=== PATIENT | male | born 1955 ===

== ENCOUNTER → 2020-02-22 13:04 | Outpatient (BNVA) | payer MEDICARE, MEDICAID, SELFPAY | PROVIDERS: PCP Internal Medicine; Visit Provider Internal Medicine | DX: M86.9 Osteomyelitis, unspecified (principal); Z79.899 Other long term (current) drug therapy; Z79.82 Long term (current) use of aspirin | CPT/HCPCS: 99212 ==

== ENCOUNTER 2020-02-26 15:58 | Outpatient (REF) | payer MEDICAID, MEDICARE, SELFPAY | END 2020-02-26 15:59 | disposition home or self-care (01) | LOC: HO.WCC 15:58 | PROVIDERS: Visit Provider Physician Assistant Surgical | DX: M86.9 Osteomyelitis, unspecified (principal) | CPT/HCPCS: 87071; 87077; 87186; 87205 ==

== ENCOUNTER 2020-04-22 11:24 | Outpatient (REF) | payer MEDICARE, MEDICAID, SELFPAY ==
--- NOTE | 2020-04-22 11:55 | XR_ITS ---
EXAMINATION: XR FOOT, LEFT CLINICAL INFORMATION: Diabetic foot ulcer. COMPARISON: None. TECHNIQUE: AP, lateral, and oblique views of the left foot. FINDINGS: There is diffuse osteopenia. The ankle mortise and subtalar joints are normal. A small calcaneal heel spur is noted. The ankle mortise and subtalar joints are normal. No periosteal elevation or reaction seen. The soft tissues are normal. XR/XR foot LT min 3V IMPRESSION: Diffuse osteopenia. No visible acute fracture or dislocation seen. No suspicion for osteomyelitis. No soft tissue gas seen.
== END 2020-04-22 11:25 | disposition home or self-care (01) ==
LOC: HO.LAB 11:24
PROVIDERS: PCP Internal Medicine; Visit Provider Physician Assistant
DX: E11.621 Type 2 diabetes mellitus with foot ulcer (principal); L97.529 Non-pressure chronic ulcer of other part of left foot with unspecified severity
CPT/HCPCS: 73630

== ENCOUNTER 2020-05-14 13:29 | Outpatient (REF) | payer MEDICARE, MEDICAID, SELFPAY ==
--- NOTE | 2020-05-14 | US_ITS ---
EXAMINATION: NONINVASIVE ASSESSMENT OF THE ARTERIES OF THE LEFT LOWER EXTREMITIES WITH PVR EXAM AND BILATERAL LOWER EXTREMITY DUPLEX CLINICAL INFORMATION: Peripheral vascular disease TECHNIQUE: Ankle pulse volume recordings, ankle pressure measurements were obtained of the lower extremity arterial system on the left in addition to duplex Doppler techniques with wave form analysis and measurement of velocities in the common femoral, profunda femoral, superficial femoral, popliteal and tibial arteries. The study was performed only at rest. COMPARISON: Previous exam April 2019 FINDINGS: a) AT REST: LEFT LEG: Left direct duplex Doppler findings: There is mild atherosclerotic disease with vessel wall calcification. No visible luminal narrowing is appreciated. The left distal superficial femoral artery is difficult to visualize. * Common femoral artery: 75 cm/s, Diastolic flow reversal: Yes * Superficial femoral artery (proximal, mid, distal): 81, 83 and 62 cm/s, Diastolic flow reversal: No * Popliteal artery: 69 cm/s, Diastolic flow reversal: No * Posterior tibial artery: 124 cm/s, Diastolic flow reversal: No US/US arterial duplex LE LT IMPRESSION: Mild atherosclerotic disease with vessel wall calcification. Limited visualization of the left distal superficial femoral artery. Peak systolic velocities do not demonstrate evidence of hemodynamically significant stenosis. There is loss of triphasic flow in the left superficial femoral, popliteal and posterior tibial arteries.
== END 2020-05-14 13:30 | disposition home or self-care (01) ==
LOC: HO.US 13:29
PROVIDERS: PCP Internal Medicine; Visit Provider Physician Assistant
DX: I73.9 Peripheral vascular disease, unspecified (principal)
CPT/HCPCS: 93926

== ENCOUNTER 2020-06-04 13:07 | Outpatient (REF) | payer MEDICARE, MEDICAID, SELFPAY ==
[2020-06-04 14:07] LABS: Hematocrit 36.7 % (42-52); Hemoglobin 11.5 g/dl (14.0-18.0); Mean Corpuscular HGB Conc 31.3 g/dl (31.0-36.0); Mean Corpuscular Hemoglobin 26.9 pg (27.0-33.0); Mean Corpuscular Volume 85.7 fL (80-98); Mean Platelet Volume 10.6 fL (9.4-12.4); Platelet Count 211 X10*3/uL (160-400); Red Blood Count 4.28 X10*6/uL (4.60-5.80); Red Cell Distribution Width 13.5 % (11.0-16.0)
[2020-06-04 14:14] LABS: INTERNATIONAL NORM RATIO 1.3 (0.9-1.1); Prothrombin Time 15.8 SEC (10.8-13.0)
[2020-06-04 14:16] LABS: Partial Thromboplastin Time 42.3 SEC (24.1-38.0)
[2020-06-04 14:31] LABS: Blood Urea Nitrogen 10 mg/dL (9-16); Estimated Glomerular Filt Rate > 60
== END 2020-06-04 13:08 | disposition home or self-care (01) ==
LOC: HO.LAB 13:07
PROVIDERS: PCP Internal Medicine; Visit Provider Radiology Vascular & Interventional Radiology
DX: R79.89 Other specified abnormal findings of blood chemistry (principal); R94.4 Abnormal results of kidney function studies
CPT/HCPCS: 36415; 82565; 84520; 85027; 85610; 85730

== ENCOUNTER 2020-06-19 13:00 | Outpatient (REF) | payer MEDICARE, MEDICAID, SELFPAY ==
--- NOTE | ~2020-06-19 | XR_ITS ---
EXAMINATION: XR FOOT, LEFT CLINICAL INFORMATION: Left plantar foot wound at the midfoot. COMPARISON: 04/22/2020 TECHNIQUE: AP, lateral, and oblique views of the left foot. FINDINGS: Osteopenia. There is no acute fracture or dislocation. Joint space narrowing throughout the interphalangeal joints. Diffuse soft tissue swelling. No focal soft tissue defect identified. No radiopaque foreign body. Vascular calcifications. No osseous erosion. XR/XR foot LT min 3V IMPRESSION: Osteopenia. Soft tissue swelling. No soft tissue defect identified. No erosive changes.
== END 2020-06-19 13:01 | disposition home or self-care (01) ==
LOC: HO.XRAY 13:00
PROVIDERS: PCP Internal Medicine; Visit Provider Surgery
DX: S91.302A Unspecified open wound, left foot, initial encounter (principal); X58.XXXA Exposure to other specified factors, initial encounter; Y93.9 Activity, unspecified; Y92.9 Unspecified place or not applicable; Y99.9 Unspecified external cause status; Z12.11 Encounter for screening for malignant neoplasm of colon
CPT/HCPCS: 73630; Q3014

== ENCOUNTER → 2020-07-31 13:43 | Outpatient (BNVA) | payer MEDICARE, MEDICAID, SELFPAY | PROVIDERS: PCP Internal Medicine; Visit Provider Nurse Practitioner | DX: R19.5 Other fecal abnormalities (principal); G82.20 Paraplegia, unspecified; I10 Essential (primary) hypertension; S39.92XD Unspecified injury of lower back, subsequent encounter; Z86.711 Personal history of pulmonary embolism; E13.9 Other specified diabetes mellitus without complications; Z79.899 Other long term (current) drug therapy | CPT/HCPCS: Q3014 ==

== ENCOUNTER 2020-09-02 15:47 | Outpatient (REF) | payer MEDICARE, MEDICAID, SELFPAY ==
[2020-09-02 17:00] LABS: Blood Urea Nitrogen 16 mg/dL (9-16); Estimated Glomerular Filt Rate > 60
== END 2020-09-02 15:48 | disposition home or self-care (01) ==
LOC: HO.LAB 15:47
PROVIDERS: PCP Internal Medicine; Visit Provider Physician Assistant
DX: T14.8XXD Other injury of unspecified body region, subsequent encounter (principal)
CPT/HCPCS: 36415; 82565; 84520

== ENCOUNTER → 2020-09-03 13:33 | Outpatient (BNVA) | payer MEDICARE, MEDICAID, SELFPAY | PROVIDERS: Visit Provider Internal Medicine | DX: L08.9 Local infection of the skin and subcutaneous tissue, unspecified (principal) | CPT/HCPCS: 99212 ==

== ENCOUNTER 2020-09-08 15:05 | Outpatient (REF) | payer MEDICARE, MEDICAID, SELFPAY ==
--- NOTE | ~2020-09-08 | MR_ITS ---
EXAMINATION: MRI FOOT WITHOUT AND WITH CONTRAST, RIGHT CLINICAL INFORMATION: Purulent drainage, redness. Evaluate for osteomyelitis. COMPARISON: Radiographs 04/27/2017 TECHNIQUE: MRI without and with intravenous administration of 10 mL of Gadavist is performed on the right foot FINDINGS: There is a soft tissue ulceration plantar to the 4th metatarsal head which is diffusely edematous, enhancing, with loss of T1 fatty marrow signal consistent with osteomyelitis. There is a chronic appearing dorsal dislocation of the 4th MTP joint with the proximal phalanx dorsiflexed 90 degrees. There has been resection of the distal 5th metatarsal. Bone marrow signal is otherwise normal. Fatty replacement of the intrinsic muscles of the foot, which is not uncommon in diabetic patients. MR/MR foot RT wo/w con IMPRESSION: Soft tissue ulceration plantar to the 4th metatarsal head with underlying osteomyelitis. No abscess.
== END 2020-09-08 15:06 | disposition home or self-care (01) ==
LOC: HO.MRI 15:05
PROVIDERS: Visit Provider Physician Assistant
DX: M79.671 Pain in right foot (principal)
CPT/HCPCS: 73720; A9585

== ENCOUNTER 2020-09-09 08:45 | Day surgery (SDC) | payer MEDICARE, MEDICAID, SELFPAY ==
[2020-09-04 13:57] VITALS: BMI 29.2
[2020-09-09 09:40] VITALS: BP 117/66; PULSE 79; RESP 18; TEMP 36.6; O2SAT 99
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
[2020-09-09 09:58] LABS: Glucose, Whole Blood 77 mg/dL (60-115)
--- NOTE | 2020-09-09 10:00 | HO.ANESPROP2 ---
[facility] Active Problems Active Problems: All Active Problems (Updated 09/07/20 @ 17:52 by Sandra Gomez MD) Right foot infection (Acute) Colon cancer screening (Acute) Positive colorectal cancer screening using Cologuard test (Acute) Paraplegia (Acute) Hypertension (Acute) Traumatic injury of back (Acute) NIDDY (non-insulin dependent diabetes mellitus in young) (Acute) History of pulmonary embolism (Acute) Osteomyelitis of left foot (Acute) Past Medical History Medical History Diabetes HTN (hypertension) Hx pulmonary embolism Osteomyelitis of left foot Paraplegia Right foot infection Family History Family History Father No problems noted. Mother No problems noted. Brother No problems noted. Sister No problems noted. Sister No problems noted. Sister No problems noted. Son No problems noted. Son No problems noted. Son No problems noted. Son No problems noted. Daughter No problems noted. Daughter No problems noted. Surgical History Surgical History History of colonoscopy History of spinal surgery Hx of foot surgery Social History Social History Household Members: Other Alcohol intake: current Alcohol intake frequency: does not drink Smoking Status: Never smoker Advance Directives Information Provided: No Current occupational status: disabled Meds Allergies Allergy/AdvReac Type Severity Reaction Status Date / Time levofloxacin [From LEVAQUIN] Allergy Intermediate HIVES, Verified 09/04/20 13:49 SKIN RASH seafood Allergy Intermediate Itching Verified 09/04/20 13:49 throat shellfish derived Allergy Intermediate itching Verified 09/04/20 13:49 throat Home Medications Medication Instructions Recorded Confirmed Last Taken Type baclofen 400 mcg INTRATHECAL DAILY 02/22/20 09/04/20 Unknown History cholecalciferol (vitamin D3) 10 10 mcg PO DAILY 02/22/20 09/04/20 Unknown History mcg (400 unit) tablet gabapentin 800 mg tablet 800 mg PO BID 02/22/20 02/22/20 Unknown History gabapentin 800 mg tablet 800 mg PO BID 02/22/20 09/04/20 Unknown History hydrocortisone 2.5 % topical cream 1 applic [place] BID-QID PRN 02/22/20 02/22/20 Unknown History with perineal applicator lisinopril 5 mg tablet 5 mg PO DAILY 02/22/20 09/04/20 Unknown History metformin 1,000 mg tablet 1,000 mg PO BID 02/22/20 09/04/20 Unknown History omadacycline 150 mg tablet See Rx Instructions PO .COMPLEX 02/22/20 02/22/20 Unknown History apixaban 5 mg tablet 5 mg PO BID 07/31/20 09/04/20 Unknown History latanoprost 0.005 % eye drops 1 drp OPHTHALMIC (EYE) QPM 07/31/20 09/04/20 Unknown History aspirin 1 tab PO DAILY 09/04/20 09/04/20 Unknown History insulin glargine [Lantus Solostar 10 unit SUBCUT DAILY 09/04/20 09/04/20 Unknown History U-100 Insulin] Exam Exam Date and Time: September 09, 2020 1000 Height,Weight and Vital Signs: Height 6 ft 1 in Weight 100.698 kg Last Vital Signs Temp 97.9 F 09/09/20 09:40 Pulse 79 09/09/20 09:40 Resp 18 09/09/20 09:40 BP 117/66 09/09/20 09:40 Pulse Ox 99 09/09/20 09:40 Pertinent Lab Results Pertinent Lab Results: Laboratory Tests 09/09/20 09:53 POC Glucose 77 Airway Mallampati Class: III TM Dist: >3cm Neck ROM: Full Denture: Upper Partial: Upper Heart: RRR Lungs: CTA
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
--- NOTE | 2020-09-09 10:24 | PC.NURSE ---
PT HAS STAGE 3 OPEN AREA ON LEFT SIDE OF BUTTOCKS AT THE FOLD OF GLUTES AND THE UPPER THIGH. PICTURES WERE TAKEN AND ARE ON THE CHART. AREA CLEANSED WITH NORMAL SALINE AND A WET SALINE DRESSING PLACED OVER THE AREA TO PROTECT IT FOR THE PROCEDURE
--- NOTE | 2020-09-09 10:52 | P.CONAN_ITS ---
[facility] Active Problems Active Problems: All Active Problems (Updated 09/07/20 @ 17:52 by Sandra garcia MD) Right foot infection (Acute) Colon cancer screening (Acute) Positive colorectal cancer screening using Cologuard test (Acute) Paraplegia (Acute) Hypertension (Acute) Traumatic injury of back (Acute) NIDDY (non-insulin dependent diabetes mellitus in young) (Acute) History of pulmonary embolism (Acute) Osteomyelitis of left foot (Acute) Past Medical History Medical History Diabetes HTN (hypertension) Hx pulmonary embolism Osteomyelitis of left foot Paraplegia Right foot infection Family History Family History Father No problems noted. Mother No problems noted. Brother No problems noted. Sister No problems noted. Sister No problems noted. Sister No problems noted. Son No problems noted. Son No problems noted. Son No problems noted. Son No problems noted. Daughter No problems noted. Daughter No problems noted. Surgical History Surgical History History of colonoscopy History of spinal surgery Hx of foot surgery Social History Social History Household Members: Other Alcohol intake: current Alcohol intake frequency: does not drink Smoking Status: Never smoker Advance Directives Information Provided: No Current occupational status: disabled Meds Allergies Allergy/AdvReac Type Severity Reaction Status Date / Time levofloxacin [From LEVAQUIN] Allergy Intermediate HIVES, Verified 09/04/20 13:49 SKIN RASH seafood Allergy Intermediate Itching Verified 09/04/20 13:49 throat shellfish derived Allergy Intermediate itching Verified 09/04/20 13:49 throat Home Medications Medication Instructions Recorded Confirmed Last Taken Type baclofen 400 mcg INTRATHECAL DAILY 02/22/20 09/04/20 Unknown History cholecalciferol (vitamin D3) 10 10 mcg PO DAILY 02/22/20 09/04/20 Unknown History mcg (400 unit) tablet gabapentin 800 mg tablet 800 mg PO BID 02/22/20 02/22/20 Unknown History gabapentin 800 mg tablet 800 mg PO BID 02/22/20 09/04/20 Unknown History hydrocortisone 2.5 % topical cream 1 applic MD BID-QID PRN 02/22/20 02/22/20 Unknown History with perineal applicator lisinopril 5 mg tablet 5 mg PO DAILY 02/22/20 09/04/20 Unknown History metformin 1,000 mg tablet 1,000 mg PO BID 02/22/20 09/04/20 Unknown History omadacycline 150 mg tablet See Rx Instructions PO .COMPLEX 02/22/20 02/22/20 Unknown History apixaban 5 mg tablet 5 mg PO BID 07/31/20 09/04/20 Unknown History latanoprost 0.005 % eye drops 1 drp OPHTHALMIC (EYE) QPM 07/31/20 09/04/20 Unknown History aspirin 1 tab PO DAILY 09/04/20 09/04/20 Unknown History insulin glargine [Lantus Solostar 10 unit SUBCUT DAILY 09/04/20 09/04/20 Unknown History U-100 Insulin] Exam Exam Date and Time: September 09, 2020 1052 Height,Weight and Vital Signs: Height 6 ft 1 in Weight 100.698 kg Last Vital Signs Temp 97.9 F 09/09/20 09:40 Pulse 79 09/09/20 09:40 Resp 18 09/09/20 09:40 BP 117/66 09/09/20 09:40 Pulse Ox 99 09/09/20 09:40 Pertinent Lab Results Pertinent Lab Results: Laboratory Tests 09/09/20 09:53 POC Glucose 77 Airway Mallampati Class: II TM Dist: >3cm Neck ROM: Full Denture: Upper and Lower Heart: RRR Lungs: CTA
--- NOTE | 2020-09-09 11:42 | PM.OP ---
Brief Operative Note Date of Service: 09/09/20 Pre-op diagnosis: Positive cologard/paraplegia Post-op diagnosis: other (rectal polyp, decub @ base of buttock crease with thigh) Procedure: Colonoscopy with excisional polypectomy Lavage and suction >1600cc sterile water. Implants: NONE Surgeon: Jessica Jiménez MD Anesthesia: MAC (MD Meghann) Estimated blood loss (mL): 5 Pathology: other (rectal polyp) Condition: stable Disposition: PACU
[2020-09-09 11:43] VITALS: BP 126/73; PULSE 70; RESP 16; TEMP 36.3; O2SAT 99
[2020-09-09 11:58] VITALS: BP 121/74; PULSE 70; RESP 16; O2SAT 98
[2020-09-09 12:13] VITALS: BP 112/69; PULSE 69; RESP 16; TEMP 36.3; O2SAT 98
--- NOTE | 2020-09-09 14:25 | P.OP_ITS ---
Operative Note Operative Note Date of Service: 09/09/20 Narrative: Pre-op diagnosis: Positive cologard/paraplegia Post-op diagnosis: rectal polyp, decub @ base of buttock crease with thigh-right Procedure: Colonoscopy with excisional polypectomy Lavage and suction >1600cc sterile water. Implants: NONE Surgeon: Jessica Jiménez MD Anesthesia: MAC (MD Meghann) FINDINGS- ASIA: PROSTATE NORMAL, TONE SLIGHT DECREASED Adult slim scope introduced without difficulty, advanced through sigmoid, desc ending colon--decreased tone, bowel floppy, @ region splenic flexure retroflex view prox folds clear. Slow progress through the bowel due to very marginal prep.Flushed and suctioned over 1600cc. With extrinsic abdominal pressure able to get into the ascending colon. At one point got good retroflex view which was negative. ultimately go to the cecum--AO and ileocecal valve were clear. Slow withdrawal of scope. Good views. Only found small rectal polyp--looked more hyperplastic but removed. ARV was clear. Estimated blood loss (mL): 5 Pathology: Rectal polyp Condition: stable Disposition: PACU PLAN: Given + cologard may have been false positive Would do FIT testing q 6 months Repeat colon in no longer than years due to poor prep. Follow H&H.
== END 2020-09-09 13:30 | disposition home or self-care (01) ==
PROVIDERS: PCP Internal Medicine; Visit Provider Internal Medicine Gastroenterology
PROC: 0DJD8ZZ Inspection of Lower Intestinal Tract, Via Natural or Artificial Opening Endoscopic (ICD-10-PCS; CPT 45378; principal; 2020-09-09 10:30)
DX: Z12.11 Encounter for screening for malignant neoplasm of colon (principal); K62.1 Rectal polyp; I10 Essential (primary) hypertension; E11.9 Type 2 diabetes mellitus without complications; G82.20 Paraplegia, unspecified; Z86.711 Personal history of pulmonary embolism; Z79.4 Long term (current) use of insulin; Z79.899 Other long term (current) drug therapy; Z88.1 Allergy status to other antibiotic agents
CPT/HCPCS: 45380; 82947; 88305

== ENCOUNTER → 2020-09-15 12:59 | Outpatient (BNVA) | payer MEDICARE, MEDICAID, SELFPAY | PROVIDERS: PCP Internal Medicine; Visit Provider Internal Medicine | DX: M86.9 Osteomyelitis, unspecified (principal) | CPT/HCPCS: 99212 ==

== ENCOUNTER → 2020-09-25 09:43 | Outpatient (BNVA) | payer MEDICARE, MEDICAID, SELFPAY | PROVIDERS: PCP Internal Medicine; Visit Provider Nurse Practitioner | DX: Z13.89 Encounter for screening for other disorder (principal) | CPT/HCPCS: Q3014 ==

== ENCOUNTER 2020-12-02 14:43 | Outpatient (REF) | payer MEDICARE, MEDICAID, SELFPAY ==
--- NOTE | ~2020-12-02 | XR_ITS ---
EXAMINATION: XR LUMBOSACRAL SPINE CLINICAL INFORMATION: Low back pain COMPARISON: None TECHNIQUE: 3 views of the lumbar spine FINDINGS: There is curvature of the mid lumbar spine to the left. There may be mild 2 mm posterior subluxation of L5 with respect to S1. Alignment is otherwise normal. There is severe spondylosis with large bridging vertebral body bony osteophyte and ankylosis. There are old-appearing L1 and L2 vertebral body compression fractures. No acute fracture is seen. There is multilevel degenerative disc disease, greatest at L4-L5 and L5-S1. There is lower lumbar spine facet arthritis. There are surgical clips adjacent over into the left of the spine. XR/XR lumbar spine 4V min IMPRESSION: Old L1 and L2 vertebral body compression fractures. 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
== END 2020-12-02 14:44 | disposition home or self-care (01) ==
LOC: HO.XRAY 14:43
PROVIDERS: PCP Internal Medicine; Visit Provider Internal Medicine
DX: M54.5 Low back pain (principal)
CPT/HCPCS: 72110

== ENCOUNTER 2021-01-26 12:47 | Outpatient (REF) | payer MEDICARE, MEDICAID, SELFPAY ==
--- NOTE | ~2021-01-26 | MR_ITS ---
EXAMINATION: MR PELVIS WITHOUT AND WITH CONTRAST CLINICAL INFORMATION: Nonhealing wound left ischial tuberosity. Patient reports nonhealing wound for 6 months, paraplegic, check for infection in bone. COMPARISON: XR pelvis 12/15/2020. TECHNIQUE: MRI scanning of the pelvis is performed using a standard protocol on the high-field strength 1.5 Dipti magnet. Precontrast images are obtained in multiple planes. Postcontrast images are obtained in the axial plane with use of 10 mL of Gadavist. FINDINGS: There is a skin/soft tissue defect in the lower left buttocks, inferior to the left ischial tuberosity. There is streaky underlying subcutaneous edema and some minimal enhancement. There are no loculated fluid collections. There is chronic-appearing hypertrophic change of the left ischial tuberosity but there are no destructive changes or bone marrow edema to suggest osteomyelitis. Incidental note is made of fatty atrophy of most of the visualized muscles, most prominent in the gluteus norman muscles bilaterally and the left rectus abdominis and left hip adductor muscles. There is a moderate-sized fat-containing right inguinal hernia. There are no intrapelvic lesions. There are prominent left groin lymph nodes. MR/MR pelvis wo/w con IMPRESSION: 1. Soft tissue wound inferior to the left ischial tuberosity with underlying subcutaneous edema and minor enhancement. No evidence of abscess. 2. No evidence of osteomyelitis, with particular attention to the left ischial tuberosity. 3. Fatty atrophy involving multiple muscles. 4. Fat-containing right inguinal hernia. 5. Prominent left groin lymph nodes which are nonspecific.
== END 2021-01-26 12:48 | disposition home or self-care (01) ==
LOC: HO.MRI 12:47
PROVIDERS: PCP Internal Medicine; Visit Provider Physician Assistant
DX: L89.323 Pressure ulcer of left buttock, stage 3 (principal)
CPT/HCPCS: 72197; A9585

== ENCOUNTER → 2021-02-06 10:49 | Outpatient (BNVA) | payer MEDICARE, MEDICAID, SELFPAY | PROVIDERS: Visit Provider Internal Medicine | DX: L89.319 Pressure ulcer of right buttock, unspecified stage (principal) | CPT/HCPCS: 99212 ==

== ENCOUNTER 2021-02-26 11:33 | Outpatient (REF) | payer MEDICARE, MEDICAID, SELFPAY ==
[2021-02-26 11:37] LABS: MANUAL DIFF FLAG NO
[2021-02-26 11:43] LABS: Appearance Urine HAZY; Color Urine YELLOW; Glucose Urine UA NEG (NEG); Leukocyte Esterase Urine 2+ (NEG); Nitrite Urine POS (NEG); PH 8.5 (5.0-8.0); Urine Blood 2+ (NEG); Urine Ketones NEG (NEG); Urine Protein NEG (NEG-TRACE)
[2021-02-26 11:44] LABS: Basophils Percent Auto 0.4 % (0-2); Eosinophils Absolute Auto 0.1 X10*3/uL (0.0-0.4); Eosinophils Percent Auto 1.1 % (0-4); Hematocrit 24.6 % (42-52); Hemoglobin 7.8 g/dl (14.0-18.0); Imm Gran Abs Auto 0.04 X10*3/uL (0.00-0.03); Imm Gran Pct Auto 0.8 % (0.0-0.4); Lymphocytes Absolute Auto 1.4 X10*3/uL (1.2-4.9); Lymphocytes Percent Auto 27.4 % (20-40); Mean Corpuscular HGB Conc 31.7 g/dl (31.0-36.0); Mean Corpuscular Hemoglobin 24.9 pg (27.0-33.0); Mean Corpuscular Volume 78.6 fL (80-98); Mean Platelet Volume 9.6 fL (9.4-12.4); Monocytes Absolute Auto 0.5 X10*3/uL (0.1-1.2); Monocytes Percent Auto 9.1 % (2-11); Neutrophils Absolute Auto 3.2 X10*3/uL (2.0-8.3); Neutrophils Percent Auto 61.2 % (45-73); Platelet Count 273 X10*3/uL (160-400); Red Blood Count 3.13 X10*6/uL (4.60-5.80); Red Cell Distribution Width 15.1 % (11.0-16.0); White Blood Count 5.3 X10*3/uL (4.8-10.8)
[2021-02-26 12:26] LABS: Erythrocyte Sedimentation Rate 116 MM/HR (0-15)
[2021-02-26 13:00] LABS: Amorphous Sediment Urine 1+ /LPF; Bacteria Urine 2+ /LPF; Squamous Epithelial Cell Urine TRACE /LPF; Triple Phosphate Crystal Urine 1+ /LPF; WBC Urine 0-2 /HPF (0-4)
== END 2021-02-26 11:34 | disposition home or self-care (01) ==
LOC: HO.HVNA 11:33
PROVIDERS: Visit Provider Internal Medicine
DX: R50.9 Fever, unspecified (principal)
CPT/HCPCS: 36415; 81001; 85025; 85652; 87086

== ENCOUNTER 2021-03-02 15:25 | Inpatient (IN) | payer MEDICARE, MEDICAID, SELFPAY ==
--- NOTE | ~2021-03-02 | CT_ITS ---
EXAMINATION: CT ABDOMEN AND PELVIS WITH CONTRAST CLINICAL INFORMATION: Stage IV . Past history of osteomyelitis of foot. COMPARISON: None TECHNIQUE: Multidetector volumetric images were obtained from the superior aspect of the liver through the pubic symphysis following administration 85 mL of Omnipaque 350 intravenous contrast. Sagittal and coronal reformatted images were obtained on the technologist's workstation. Oral Contrast: No. This CT examination was performed using dose optimization techniques as appropriate, variously including the following: *Automated exposure control. *Adjustment of mA and/or kV according to patient size (this includes techniques or standardized protocols for targeted exams where dose is matched to indication/reason for exam; i.e. extremities or head). *Use of iterative reconstruction technique. DLP: 888 mGy-cm FINDINGS: LUNG BASES: The lung bases are clear. There are postsurgical changes at the left posterior 10th rib. LIVER, GALLBLADDER, AND BILIARY TREE: The liver is normal in size, shape, and attenuation. No focal hepatic lesion or biliary ductal dilatation is present. The gallbladder is unremarkable with no evidence of radiopaque gallstones, gallbladder wall thickening, or obvious pericholecystic inflammatory changes. PANCREAS: Unremarkable. SPLEEN: Unremarkable. ADRENAL GLANDS: Unremarkable. KIDNEYS AND URETERS: The kidneys are normal in size, shape, and attenuation. No hydronephrosis, hydroureter, or calculi seen. No perinephric stranding. There is a small 7 mm cyst in the lower pole of right kidney. BLADDER: There is a Juarez catheter in the non-distended bladder. There is gas within the bladder likely from Juarez's insertion. GASTROINTESTINAL TRACT: There is a large amount of stool seen throughout the colon without distention. The small bowel loops are normal caliber. ABDOMINAL WALL: There is a right inguinal hernia containing fat. LYMPH NODES: There are small shotty lymph nodes in the retroperitoneum. VASCULAR: Unremarkable. PELVIC VISCERA: There is no free fluid or free air. OSSEOUS STRUCTURES: There is diffuse osteopenia with calcification of the anterior longitudinal ligament and fusion of the facet joints likely findings suggestive of DISH. CT/CT abdomen pelvis w con IMPRESSION: 1. [id number]-[id number] constipation. Small 7 mm cyst in the lower pole of right kidney. 2. Calcification of anterior longitudinal ligament and fusion of bilateral facet joints suggestive of DISH. 3. Right inguinal hernia containing fat.
--- NOTE | ~2021-03-02 | MR_ITS ---
EXAMINATION: MR PELVIS WITHOUT AND WITH CONTRAST CLINICAL INFORMATION: Chronic ulcer. Evaluate for osteomyelitis. COMPARISON: Pelvic MRI dated 01/26/2021. CT abdomen/pelvis dated 03/02/2021. TECHNIQUE: Multisequence MR imaging of the pelvis was obtained before and after the IV administration of 10 mL Gadavist contrast on a high-field strength scanner. FINDINGS: Redemonstration of a soft tissue wound inferior to the left ischial tuberosity with associated stranding and edema demonstrating postcontrast enhancement and extending to the region of the proximal hamstring tendon and ischial tuberosity. Findings are consistent with cellulitis. There is redemonstration of slightly heterogeneous marrow signal in the ischial tuberosity without new or increasing marrow edema or associated postcontrast enhancement to suggest acute osteomyelitis. Prominent ischial tuberosity enthesopathic spurring is redemonstrated. There is new increased fluid signal along the posterior aspect of the proximal hamstring tendon measuring up to 3.0 x 1.6 cm, consistent with new proximal hamstring tendon tearing. No definite abscess formation. No stress reaction or fracture. No new lytic or blastic osseous lesion. Juarez catheter within the urinary bladder. No new pelvic mass or fluid collection. MR/MR pelvis wo/w con IMPRESSION: 1. Redemonstration of soft tissue ulceration and cellulitis inferior to the left ischial tuberosity. This extends to the proximal left hamstring insertion where there is new/increased posterior partial tearing. There is a small amount of fluid adjacent to the proximal hamstring tendon, likely related to the tear. No definite abscess formation. 2. No new adjacent marrow edema or enhancement to suggest acute osteomyelitis.
[2021-03-02 15:51] VITALS: BP 105/60; BP 138/72; PULSE 84; PULSE 92; RESP 18; TEMP 36.9; O2SAT 98; O2SAT 99; BMI 29.5
--- NOTE | 2021-03-02 16:11 | ED.MALEGU ---
HPI - Male Genitourinary General Chief complaint: Wound/Laceration Stated complaint: TESTICLE PAIN PER EMS Source: patient Mode of arrival: ambulatory Limitations: no limitations History of Present Illness HPI Narrative: 66-year-old male, paraplegic, chronic Juarez catheterization, chronic decubitus ulcer being followed by wound care presents with worsening sacral ischial stage IV decubitus wound. He was referred to emergency department by wound care nurse. Onset (ago): unknown Duration: constant Location: left inguinal region Context: indwelling catheter Related Data Sexually active: No Home Medications Medication Instructions Recorded Confirmed baclofen 400 mcg INTRATHECAL DAILY 02/22/20 09/04/20 cholecalciferol (vitamin D3) 10 10 mcg PO DAILY 02/22/20 09/04/20 mcg (400 unit) tablet gabapentin 800 mg tablet 800 mg PO BID 02/22/20 02/22/20 gabapentin 800 mg tablet 800 mg PO BID 02/22/20 09/04/20 (Neurontin) hydrocortisone 2.5 % topical cream 1 applic [place] BID-QID PRN 02/22/20 02/22/20 with perineal applicator (Anusol-HC) lisinopril 5 mg tablet 5 mg PO DAILY 02/22/20 09/04/20 metformin 1,000 mg tablet 1,000 mg PO BID 02/22/20 09/04/20 omadacycline 150 mg tablet (Nuzyra) See Rx Instructions PO .COMPLEX 02/22/20 02/22/20 apixaban 5 mg tablet 5 mg PO BID 07/31/20 09/04/20 latanoprost 0.005 % eye drops 1 drp OPHTHALMIC (EYE) QPM 07/31/20 09/04/20 aspirin 81 mg tablet,delayed 1 tab PO DAILY 09/04/20 09/04/20 release insulin glargine 100 unit/mL (3 10 unit SUBCUT DAILY 09/04/20 09/04/20 mL) subcutaneous pen (Lantus Solostar U-100 Insulin) Allergies Allergy/AdvReac Type Severity Reaction Status Date / Time levofloxacin [From LEVAQUIN] Allergy Intermediate HIVES, Verified 03/02/21 15:51 SKIN RASH seafood Allergy Intermediate Itching Verified 03/02/21 15:51 throat shellfish derived Allergy Intermediate itching Verified 03/02/21 15:51 throat Review of Systems Review of Systems: Constitutional: No Fever, No Chills ENT/Mouth: No Ear Pain, No Hoarseness, No sore throat Eyes: No Eye Pain, No Swelling, No Redness, No Foreign Body Cardiovascular: No Chest Pain, No SOB Respiratory: No Cough, No Dyspnea Gastrointestinal: No Nausea, No Vomiting, No Diarrhea, No abdominal Pain Genitourinary: Positive chronic Juarez, No Dysuria, No Hematuria Musculoskeletal: No joint pain, No Myalgias, No Joint Swelling Skin: Positive worsening decubitus ulcer stage IV, No Skin lacerations, No rash Neuro: Positive paraplegia, No Loss of Consciousness, No Dizziness, No Headache Psych: No Anxiety/Panic, No Depression Heme/Lymph: no easy bruising, no Lymphadenopathy Endocrine: No Polyuria, No Polydipsia Yes all other systems are reviewed and are negative FORMERLY [facility] Past Medical History Attestation statement: The following information was validated with the patient. Source: old records reviewed Medical History Decubitus ulcer of right ischial tuberosity region Diabetes HTN (hypertension) Hx pulmonary embolism Osteomyelitis Osteomyelitis of left foot Paraplegia Right foot infection (Unknown) Surgical History History of spinal surgery Hx of colonoscopy Hx of foot surgery Family History Family History Father No problems noted. Mother No problems noted. Brother No problems noted. Sister No problems noted. Sister No problems noted. Sister No problems noted. Son No problems noted. Son No problems noted. Son No problems noted. Son No problems noted. Daughter No problems noted. Daughter No problems noted. Social History Social History Household Members: Other Household Members Other:: roommate Alcohol intake: current Alcohol intake frequency: does not drink Advance Directives: No Advance Directives Information Provided: No Current occupational status: disabled Physical Exam Vital Signs: Vital Signs: Last Vital Signs Temp 98.4 F 03/02/21 21:43 Pulse 87 03/02/21 21:43 Resp 18 03/02/21 21:43 BP 102/53 L 03/02/21 21:43 Pulse Ox 98 03/02/21 21:43 Body Mass Index 29.5 Appearance: Alert. Oriented X3. No acute distress. Eyes: Pupils equal, round and reactive to light. ENT: Pharynx normal. Neck: Normal inspection. Neck supple. CVS: Normal heart rate and rhythm. Pulses normal. Respiratory: No respiratory distress. Breath sounds normal. Abdomen: Soft and nontender. Skin: Large stage IV decubitus, tunneling to the left groin. Extremities: No lower extremity edema. Neuro: Paraplegia. Cranial nerves 2-12 intact. Course Course Course Narrative: 66-year-old paraplegic male with chronic decubitus ulcer stage IV, being followed by wound care for multiple years. Has a chronic Juarez. Was referred to emergency department by scheduling manager that visited his home because she noted that his wound has changed, gotten larger, and has purulent malodorous drainage. 4:40 p.m. discussion with Wound Care PA Heather Lawson, wound care has significant concerns regarding deep soft tissue injury or infection. Wound Care will reach out to on-call surgery to give detailed history, once labs and imaging return I will discuss plan with surgery. Will start Zosyn and vancomycin. 7:[address] Vail, he will look at the CT scan himself to determine plan of care. CT scan pending. 9:54 p.[address] repeat discussion with Dr Vail, surgery will round in the morning. Discussion with hospitalist, plan of care is to admit for CAUTI and worsening decubitus ulcer. Consultations Consultation #1: Heather CLARKE, wound care Time: 16:41 Consultation #2: Genna Time: 19:23 Consultation #3: Js Time: 21:55 MDM - Male Genitourinary MDM Narrative Medical decision making narrative: Osteomyelitis, infected decubitus wound Differential Diagnosis Differential diagnosis: Likely urinary tract infection, urethritis and prostatitis Medical Records Attestation: I reviewed the patient's medical records. Lab Data Attestation: I reviewed the patient's lab results. Result diagrams: 03/02/21 16:45 03/02/21 17:30 Labs: Lab Results 03/02/21 03/02/21 03/02/21 Range/Units 16:45 16:45 16:45 WBC 7.1 (4.8-10.8) X10*3/uL RBC 3.68 L (4.60-5.80) X10*6/uL Hgb 9.1 L (14.0-18.0) g/dl Hct 28.8 L (42-52) % MCV 78.3 L (80-98) fL MCH 24.7 L (27.0-33.0) pg MCHC 31.6 (31.0-36.0) g/dl RDW 15.5 (11.0-16.0) % Plt Count 521 H D (160-400) X10*3/uL MPV 9.7 (9.4-12.4) fL Immature Gran % (Auto) 1.7 H (0.0-0.4) % Neut % (Auto) 62.8 (45-73) % Lymph % (Auto) 27.0 (20-40) % [place] % (Auto) 6.1 (2-11) % Eos % (Auto) 2.0 (0-4) % Baso % (Auto) 0.4 (0-2) % Lymph # (Auto) 1.9 (1.2-4.9) X10*3/uL [place] # (Auto) 0.4 (0.1-1.2) X10*3/uL Eos # (Auto) 0.1 (0.0-0.4) X10*3/uL Baso # (Auto) 0.0 (0.0-0.2) X10*3/uL Abs Immat Gran (auto) 0.12 H (0.00-0.03) X10*3/uL Absolute Neuts (auto) 4.4 (2.0-8.3) X10*3/uL Absolute Nucleated RBC 0.000 (0.0-0.012) X10*3/uL Nucleated RBC % (auto) 0.0 (0.0-0.2) /100WBC PT 15.0 H (9.9-13.0) SEC INR 1.3 H (0.9-1.1) Sodium (135-145) mmol/L Potassium (3.3-5.1) mmol/L Chloride (96-108) mmol/L Carbon Dioxide (22-29) mmol/L Anion Gap (12-20) BUN (9-16) mg/dL Creatinine (0.5-1.4) mg/dL Estim Creat Clear Calc Estimated GFR POC Glucose (60-115) mg/dL Random Glucose (60-115) mg/dL Lactic Acid 1.5 (0.5-2.0) mmol/L Calcium (8.4-10.2) mg/dL Total Bilirubin (0.0-1.0) mg/dL Direct Bilirubin (0.0-0.5) mg/dL AST (5-37) U/L ALT (0-40) U/L Alkaline Phosphatase (39-117) U/L Total Protein (6.5-8.0) g/dL Albumin (3.5-5.0) g/dL Lipase (8-78) U/L Urine Color Urine Appearance Urine pH (5.0-8.0) Ur Specific [place] (1.005-1.025) Urine Protein (NEG-TRACE) MG/DL Urine Glucose (UA) (NEG) MG/DL Urine Ketones (NEG) MG/DL Urine Blood (NEG) Urine Nitrite (NEG) Ur Leukocyte Esterase (NEG) Urine RBC (0) /HPF Urine WBC (0-4) /HPF Ur Squamous Epith Cells /LPF Urine Bacteria /LPF 03/02/21 03/02/21 03/02/21 Range/Units 17:26 17:30 17:49 WBC (4.8-10.8) X10*3/uL RBC (4.60-5.80) X10*6/uL Hgb (14.0-18.0) g/dl Hct (42-52) % MCV (80-98) fL MCH (27.0-33.0) pg MCHC (31.0-36.0) g/dl RDW (11.0-16.0) % Plt Count (160-400) X10*3/uL MPV (9.4-12.4) fL Immature Gran % (Auto) (0.0-0.4) % Neut % (Auto) (45-73) % Lymph % (Auto) (20-40) % [place] % (Auto) (2-11) % Eos % (Auto) (0-4) % Baso % (Auto) (0-2) % Lymph # (Auto) (1.2-4.9) X10*3/uL [place] # (Auto) (0.1-1.2) X10*3/uL Eos # (Auto) (0.0-0.4) X10*3/uL Baso # (Auto) (0.0-0.2) X10*3/uL Abs Immat Gran (auto) (0.00-0.03) X10*3/uL Absolute Neuts (auto) (2.0-8.3) X10*3/uL Absolute Nucleated RBC (0.0-0.012) X10*3/uL Nucleated RBC % (auto) (0.0-0.2) /100WBC PT (9.9-13.0) SEC INR (0.9-1.1) Sodium 139 (135-145) mmol/L Potassium 4.7 (3.3-5.1) mmol/L Chloride 103 (96-108) mmol/L Carbon Dioxide 29 (22-29) mmol/L Anion Gap 12 (12-20) BUN 14 (9-16) mg/dL Creatinine 0.60 (0.5-1.4) mg/dL Estim Creat Clear Calc 156.0 Estimated GFR > 60 POC Glucose 104 (60-115) mg/dL Random Glucose 114 D (60-115) mg/dL Lactic Acid (0.5-2.0) mmol/L Calcium 9.5 (8.4-10.2) mg/dL Total Bilirubin < 0.2 (0.0-1.0) mg/dL Direct Bilirubin < 0.2 (0.0-0.5) mg/dL AST 43 H (5-37) U/L ALT 73 H (0-40) U/L Alkaline Phosphatase 98 (39-117) U/L Total Protein 8.1 H (6.5-8.0) g/dL Albumin 3.3 L (3.5-5.0) g/dL Lipase 23 (8-78) U/L Urine Color YELLOW Urine Appearance CLEAR Urine pH 7.5 (5.0-8.0) Ur Specific [place] 1.010 (1.005-1.025) Urine Protein NEG (NEG-TRACE) MG/DL Urine Glucose (UA) NEG (NEG) MG/DL Urine Ketones NEG (NEG) MG/DL Urine Blood NEG (NEG) Urine Nitrite POS H (NEG) Ur Leukocyte Esterase 2+ H (NEG) Urine RBC 0 (0) /HPF Urine WBC 10-14 H (0-4) /HPF Ur Squamous Epith Cells NONE /LPF Urine Bacteria 3+ /LPF Imaging Data CT abdomen pelvis with contrast: Attestation: I personally reviewed and interpreted this imaging study as follows: Radiologist's impression: FINDINGS: LUNG BASES: The lung bases are clear. There are postsurgical changes at the left posterior 10th rib. LIVER, GALLBLADDER, AND BILIARY TREE: The liver is normal in size, shape, and attenuation. No focal hepatic lesion or biliary ductal dilatation is present. The gallbladder is unremarkable with no evidence of radiopaque gallstones, gallbladder wall thickening, or obvious pericholecystic inflammatory changes. PANCREAS: Unremarkable. SPLEEN: Unremarkable. ADRENAL GLANDS: Unremarkable. KIDNEYS AND URETERS: The kidneys are normal in size, shape, and attenuation. No hydronephrosis, hydroureter, or calculi seen. No perinephric stranding. There is a small 7 mm cyst in the lower pole of right kidney. BLADDER: There is a Juarez catheter in the non-distended bladder. There is gas within the bladder likely from Juarez's insertion. GASTROINTESTINAL TRACT: There is a large amount of stool seen throughout the colon without distention. The small bowel loops are normal caliber. ABDOMINAL WALL: There is a right inguinal hernia containing fat. LYMPH NODES: There are small shotty lymph nodes in the retroperitoneum. VASCULAR: Unremarkable. PELVIC VISCERA: There is no free fluid or free air. OSSEOUS STRUCTURES: There is diffuse osteopenia with calcification of the anterior longitudinal ligament and fusion of the facet joints likely findings suggestive of DISH. IMPRESSION: 1. Uysxhywz-[id number] constipation. Small 7 mm cyst in the lower pole of right kidney. 2. Calcification of the anterolateral ligament and fusion of bilateral facet joints suggestive of DISH. 3. Right inguinal hernia containing fat. ECG Data Attestation: I personally reviewed and interpreted this ECG as follows: ECG interpretation date: 03/02/21 ECG interpretation time: 17:45 Prior ECG tracings: not available for review Interpretation: Ventricular rate 84 beats per minute, [place] 178, QRS 92, QT 354, QTC 418, normal sinus rhythm, normal EKG, prior EKG unavailable secondary to system 130 error Critical Care Time Critical Care Time Critical Care Time: Yes Total Critical Care Time: 45 Attestation: I have personally provided critical care time exclusive of time spent on separately billable procedures. Time includes review of laboratory data, radiology results, discussion with consultants, and monitoring for potential decompensation. Interventions were performed as documented. Discharge Plan Discharge Clinical Impression: Paraplegia, Decubitus ulcer of right ischial tuberosity region Catheter-associated urinary tract infection Qualifiers: Indwelling urinary catheter type: indwelling urethral catheter Encounter type: initial encounter Qualified Code(s): T83.511A - Infection and inflammatory reaction due to indwelling urethral catheter, initial encounter
--- NOTE | 2021-03-02 16:24 | ECG_ITS ---
Test Reason : INFECTION Blood Pressure : / mmHG Vent. Rate : 084 BPM Atrial Rate : 084 BPM P-R Int : 178 ms QRS Dur : 092 ms QT Int : 354 ms P-R-T Axes : 055 -20 045 degrees QTc Int : 418 ms Normal sinus rhythm Left axis deviation Otherwise normal ECG No previous ECGs available Referred By: Marilyn Kiser Electronically Signed By:BHUMI COHEN MD
[2021-03-02 16:51] LABS: MANUAL DIFF FLAG NO
[2021-03-02 16:59] LABS: INTERNATIONAL NORM RATIO 1.3 (0.9-1.1)
[2021-03-02 17:01] LABS: Lactic Acid 1.5 mmol/L (0.5-2.0)
[2021-03-02 17:53] LABS: Glucose, Whole Blood 104 mg/dL (60-115)
[2021-03-02 17:55] LABS: Appearance Urine CLEAR; Color Urine YELLOW; Glucose Urine UA NEG (NEG); Leukocyte Esterase Urine 2+ (NEG); Nitrite Urine POS (NEG); PH 7.5 (5.0-8.0); UACC Culture Trigger YES; Urine Blood NEG (NEG); Urine Ketones NEG (NEG); Urine Protein NEG (NEG-TRACE)
[2021-03-02] MEDS: Piperacillin Sodium/Tazobactam 3.375 GM in 0.9 % Sodium Chloride 50 ML IV (17:59)
[2021-03-02 18:01] LABS: Alanine Aminotransferase 73 U/L (0-40); Albumin Level 3.3 g/dL (3.5-5.0); Alkaline Phosphatase 98 U/L (39-117); Anion Gap 12 (12-20); Aspartate Amino Transferase 43 U/L (5-37); Bilirubin Direct < 0.2 mg/dL (0.0-0.5); Bilirubin Total < 0.2 mg/dL (0.0-1.0); Blood Urea Nitrogen 14 mg/dL (9-16); Calcium 9.5 mg/dL (8.4-10.2); Carbon Dioxide 29 mmol/L (22-29); Chloride 103 mmol/L (96-108); Estimated Glomerular Filt Rate > 60; Glucose Random 114 mg/dL (60-115); Lipase 23 U/L (8-78); Potassium 4.7 mmol/L (3.3-5.1); Sodium 139 mmol/L (135-145); Total Protein 8.1 g/dL (6.5-8.0)
[2021-03-02 18:16] LABS: Bacteria Urine 3+ /LPF; RBC Urine 0 /HPF (0)
[2021-03-02 18:31] LABS: Basophils Percent Auto 0.4 % (0-2); Eosinophils Absolute Auto 0.1 X10*3/uL (0.0-0.4); Hematocrit 28.8 % (42-52); Hemoglobin 9.1 g/dl (14.0-18.0); Imm Gran Abs Auto 0.12 X10*3/uL (0.00-0.03); Imm Gran Pct Auto 1.7 % (0.0-0.4); Lymphocytes Absolute Auto 1.9 X10*3/uL (1.2-4.9); Mean Corpuscular HGB Conc 31.6 g/dl (31.0-36.0); Mean Corpuscular Hemoglobin 24.7 pg (27.0-33.0); Mean Corpuscular Volume 78.3 fL (80-98); Mean Platelet Volume 9.7 fL (9.4-12.4); Monocytes Absolute Auto 0.4 X10*3/uL (0.1-1.2); Monocytes Percent Auto 6.1 % (2-11); Neutrophils Absolute Auto 4.4 X10*3/uL (2.0-8.3); Neutrophils Percent Auto 62.8 % (45-73); Platelet Count 521 X10*3/uL (160-400); Red Blood Count 3.68 X10*6/uL (4.60-5.80); Red Cell Distribution Width 15.5 % (11.0-16.0); White Blood Count 7.1 X10*3/uL (4.8-10.8)
[2021-03-02] MEDS: iohexoL 350 MG/ML 100 ML INFUS..BTL IV (18:49)
[2021-03-02 19:00] VITALS: BP 122/66; PULSE 84; RESP 18; TEMP 36.9; O2SAT 96
[2021-03-02] MEDS: vancomycin HCL 1,250 MG in 0.9 % Sodium Chloride 250 ML 166.67 MG IV (19:02)
--- NOTE | 2021-03-02 19:08 | PC.NURSE ---
patient a&ox3, vss, iv antibiotics running per order, pt positioned to comfort, reno cath patient/draining, will continue to monitor.
[2021-03-02 20:30] VITALS: BP 109/50; PULSE 88; RESP 18; TEMP 36.8; O2SAT 97
[2021-03-02 21:43] VITALS: BP 102/53; PULSE 87; RESP 18; TEMP 36.9; O2SAT 98
--- NOTE | 2021-03-02 21:57 | PC.NURSE ---
unable to take pictures of wound as the camera in the ED is not charged, charge is aware, will notify our director to obtain a circular knife cutter machine as the ED one is no longer here.
--- NOTE | 2021-03-02 22:18 | PC.NURSE ---
camera cupola charger was found and picture of wound was taken
--- NOTE | 2021-03-02 23:18 | PM.IMHP ---
History of Present Illness Date of Service: 03/02/21 Chief Complaint: wound 66-year-old male with past medical history of diabetes, paraplegic pulse spinal injury, HTN, history of PE, and history of decubitus ulcer of the right ischial tuberosity region presents to the hospital complaining of a new wound next to his chronic decubitus ulcer after he had wound VAC in place. Patient denies any fever no chills, reports clear drainage from his new wound, malodorous. Patient is paraplegic with no sensation therefore he has no pain, denies any abdominal pain nausea or vomiting, no diarrhea constipation, no urinary symptoms and no lower extremity edema. He has chronic healing wound in his feet with no change. On arrival to the ED patient hemodynamically stable with no significant abnormal vitals Labs are significant for WBC count of 7.1, hemoglobin of 9.1 which is around his baseline. UA shows nitrites, leukocyte Estrace and WBC Abdominal/pelvic CT shows moderate to severe constipation, right inguinal hernia containing fat, shows no evidence of osteomyelitis General surgery informed and patient will be admitted for further evaluation Review of Systems Review of Systems: Yes all other systems are reviewed and are negative FORMERLY [facility] Medical History Decubitus ulcer of right ischial tuberosity region Diabetes HTN (hypertension) Hx pulmonary embolism Osteomyelitis Osteomyelitis of left foot Paraplegia Right foot infection (Unknown) Family History Father No problems noted. Mother No problems noted. Brother No problems noted. Sister No problems noted. Sister No problems noted. Sister No problems noted. Son No problems noted. Son No problems noted. Son No problems noted. Son No problems noted. Daughter No problems noted. Daughter No problems noted. Pertinent family history: No pertinent family history Surgical History History of spinal surgery Hx of colonoscopy Hx of foot surgery Social History Household Members: Other Household Members Other:: roommate Alcohol intake: current Alcohol intake frequency: does not drink Patient Tobacco Use Status: Never used Tobacco Use of substances other than those prescribed or required for medical reasons: No Advance Directives: No Advance Directives Information Provided: No Current occupational status: disabled Meds Allergies Allergy/AdvReac Type Severity Reaction Status Date / Time levofloxacin [From LEVAQUIN] Allergy Intermediate HIVES, Verified 03/02/21 15:51 SKIN RASH seafood Allergy Intermediate Itching Verified 03/02/21 15:51 throat shellfish derived Allergy Intermediate itching Verified 03/02/21 15:51 throat Active Medications: Current Medications Acetaminophen (Acetaminophen 325 Mg Tablet) 650 mg PO Q6H PRN PRN Reason: Pain, Mild (Pain Scale 1-3) Docusate Sodium (Docusate Sodium 100 Mg Capsule) 100 mg PO DAILY PRN PRN Reason: Constipation Vancomycin HCl 1,000 mg/Vancomycin HCl 750 mg/ Sodium Chloride 535 mls @ 267.5 mls/hr IV Q12H NETO Piperacillin Sod/Tazobactam (Sod 3.375 gm/ Sodium Chloride) 50 mls @ 100 mls/hr IV Q6H NETO Ondansetron HCl (Ondansetron Hcl 4 Mg/2 Ml Vial) 4 mg IVPUSH Q8H PRN PRN Reason: Nausea and Vomiting Pharmacy Consult (Consult Rx Vancomycin Dosing) 1 each MISCELLANE DAILY PRN PRN Reason: Consult order Sodium Chloride (0.9 % Sodium Chloride Flush 3 Ml Syringe) 3 ml IVFSH [facility] Home Medications Medication Instructions Recorded Confirmed Last Taken Type gabapentin 800 mg tablet 800 mg PO BID 02/22/20 03/03/21 03/02/21 History lisinopril 5 mg tablet 5 mg PO DAILY 02/22/20 03/03/21 03/02/21 History metformin 1,000 mg tablet 1,000 mg PO BID 02/22/20 03/03/21 03/02/21 History aspirin 81 mg tablet,delayed 1 tab PO DAILY 09/04/20 03/03/21 03/02/21 History release apixaban 5 mg tablet (Eliquis) 1 tab PO BID 03/03/21 03/03/21 03/02/21 History baclofen 20 mg tablet 2 tab PO BID 03/03/21 03/03/21 03/02/21 History diclofenac sodium 1 % topical gel 2 g TOPICAL TID-QID 03/03/21 03/03/21 03/02/21 History insulin glargine 100 unit/mL (3 20 unit SUBCUT DAILY 03/03/21 03/03/21 03/02/21 History mL) subcutaneous pen (Lantus Solostar U-100 Insulin) Physical Exam Vital Signs and Narrative: Vital Signs: Last Vital Signs Temp 98.4 F 03/02/21 21:43 Pulse 87 03/02/21 21:43 Resp 18 03/02/21 21:43 BP 102/53 L 03/02/21 21:43 Pulse Ox 98 03/02/21 21:43 Body Mass Index 29.5 Const: General: cooperative and no acute distress Orientation/consciousness: patient oriented x3 Eyes: General: appearance normal, both eyes and all related structures Resp: Effort & Inspection: normal respiratory effort Auscultation: clear to auscultation bilaterally Cardio: Rate: regular rate Rhythm: regular rhythm GI: Palpation (GI): Soft to palpation Auscultation: normal bowel sounds Skin: Other: Has 2 open wounds in the decubitus region with malodorous discolored discharge Neuro: General: patient oriented x3 Cognition (Neuro): normal cognition Extrem: General: Yes normal to inspection and Yes no pedal edema Results Labs CBC and Chem 7: 03/02/21 16:45 03/02/21 17:30 Labs: Laboratory Results - last 24 hr 03/02/21 03/02/21 03/02/21 16:45 16:45 16:45 MCV 78.3 L MCH 24.7 L MCHC 31.6 RDW 15.5 Plt Count 521 H D MPV 9.7 Immature Gran % (Auto) 1.7 H Neut % (Auto) 62.8 Lymph % (Auto) 27.0 [place] % (Auto) 6.1 Eos % (Auto) 2.0 Baso % (Auto) 0.4 Lymph # (Auto) 1.9 [place] # (Auto) 0.4 Eos # (Auto) 0.1 Baso # (Auto) 0.0 Abs Immat Gran (auto) 0.12 H Absolute Neuts (auto) 4.4 Absolute Nucleated RBC 0.000 Nucleated RBC % (auto) 0.0 PT 15.0 H INR 1.3 H Anion Gap Estim Creat Clear Calc Estimated GFR POC Glucose Random Glucose Lactic Acid 1.5 Calcium Total Bilirubin Direct Bilirubin AST ALT Alkaline Phosphatase Total Protein Albumin Lipase Urine Color Urine Appearance Urine pH Ur Specific [place] Urine Protein Urine Glucose (UA) Urine Ketones Urine Blood Urine Nitrite Ur Leukocyte Esterase Urine RBC Urine WBC Ur Squamous Epith Cells Urine Bacteria 03/02/21 03/02/21 03/02/21 17:26 17:30 17:49 MCV MCH MCHC RDW Plt Count MPV Immature Gran % (Auto) Neut % (Auto) Lymph % (Auto) [place] % (Auto) Eos % (Auto) Baso % (Auto) Lymph # (Auto) [place] # (Auto) Eos # (Auto) Baso # (Auto) Abs Immat Gran (auto) Absolute Neuts (auto) Absolute Nucleated RBC Nucleated RBC % (auto) PT INR Anion Gap 12 Estim Creat Clear Calc 156.0 Estimated GFR > 60 POC Glucose 104 Random Glucose 114 D Lactic Acid Calcium 9.5 Total Bilirubin < 0.2 Direct Bilirubin < 0.2 AST 43 H ALT 73 H Alkaline Phosphatase 98 Total Protein 8.1 H Albumin 3.3 L Lipase 23 Urine Color YELLOW Urine Appearance CLEAR Urine pH 7.5 Ur Specific [place] 1.010 Urine Protein NEG Urine Glucose (UA) NEG Urine Ketones NEG Urine Blood NEG Urine Nitrite POS H Ur Leukocyte Esterase 2+ H Urine RBC 0 Urine WBC 10-14 H Ur Squamous Epith Cells NONE Urine Bacteria 3+ Imaging Radiologist's Impressions: Impressions Abdomen/Pelvis CT 03/02/21 16:25 IMPRESSION: 1. Mwhtxsok-pw-[id number] constipation. Small 7 mm cyst in the lower pole of right kidney. 2. Calcification of anterior longitudinal ligament and fusion of bilateral facet joints suggestive of DISH. 3. Right inguinal hernia containing fat. Assessment and Plan (1) Catheter-associated urinary tract infection: Qualifiers: Encounter type: initial encounter Indwelling urinary catheter type: indwelling urethral catheter Qualified Code(s): T83.511A - Infection and inflammatory reaction due to indwelling urethral catheter, initial encounter; N39.0 - Urinary tract infection, site not specified Status: Acute (2) Decubitus ulcer of right ischial tuberosity region: Status: Acute 66-year-old male who is paraplegic presents to the hospital with a new nonhealing wound # decubitus ulcer of right ischial tuberosity - appears infected with malodorous discolored discharge - will start him on broad-spectrum antibiotic - follow culture - general surgery consult - wound care consult # UTI - patient has chronic catheter - positive nitrites, leukocyte Estrace and WBC - will be treated with IV antibiotics for above - follow culture # hypertension - stable - continue home medication # history of PE - hold Eliquis in anticipation of possible surgical intervention # diabetes - hold metformin - continue insulin - will add low-dose sliding since - diabetic diet DVT prophylaxis: SCDs Quality Stroke Does the patient have a stroke diagnosis?: No VTE Prior VTE?: No VTE Risk Level:: Medical - moderate - high VTE Device Contraindication: N/A - Device Ordered VTE Drug Contraindication: Treatment Not Tolerated
--- NOTE | 2021-03-02 23:42 | PC.NURSE ---
Called Pharmacy in regards to adjusting antibiotic time due does being given in ER.
[2021-03-03] VITALS (15 sets, daily range): BP systolic 97–128; BP diastolic 50–70; PULSE 72–90; RESP 14–18; TEMP 36.3–36.8; O2SAT 95–100
--- NOTE | 2021-03-03 00:10 | PC.NURSE ---
pt repositioned and clean. Wound open to area at this time. please refer to wound photo. Pt has consult with wounds.
[2021-03-03 01:25] LABS: COVID-19 Test Negative (Negative)
[2021-03-03] MEDS: Piperacillin Sodium/Tazobactam 3.375 GM in 0.9 % Sodium Chloride 50 ML IV ×3 (02:21→17:57)
[2021-03-03] MEDS: 0.9 % Sodium Chloride Flush 3 ML SYRINGE IVFLUSH ×3 (02:21→17:57)
--- NOTE | 2021-03-03 02:31 | PC.NURSE ---
repositioned for comfort. medicated per mar.
--- NOTE | 2021-03-03 04:18 | PC.NURSE ---
Consult called into service at [phone] Vail.
--- NOTE | 2021-03-03 06:38 | PC.NURSE ---
repositioned pt to L side. changed pad and pillows
[2021-03-03 07:15] LABS: Glucose, Whole Blood 139 mg/dL (60-115)
--- NOTE | 2021-03-03 07:30 | PC.NURSE ---
The pt is resting in bed, alert, no apparent distress. He denies pain. espirations non-lbored. He makes appropriate eye contact with Rn and is calm and cooperative. IV Zosyn initiated at this time. Pt is awaiting surigcal consult. Will continue to monitor.
[2021-03-03 08:08] LABS: MANUAL DIFF FLAG NO
[2021-03-03 08:10] LABS: Basophils Percent Auto 0.6 % (0-2); Eosinophils Absolute Auto 0.2 X10*3/uL (0.0-0.4); Hematocrit 28.5 % (42-52); Hemoglobin 8.8 g/dl (14.0-18.0); Imm Gran Abs Auto 0.14 X10*3/uL (0.00-0.03); Imm Gran Pct Auto 2.6 % (0.0-0.4); Lymphocytes Absolute Auto 1.6 X10*3/uL (1.2-4.9); Lymphocytes Percent Auto 29.5 % (20-40); Mean Corpuscular HGB Conc 30.9 g/dl (31.0-36.0); Mean Corpuscular Hemoglobin 24.1 pg (27.0-33.0); Mean Corpuscular Volume 78.1 fL (80-98); Mean Platelet Volume 8.6 fL (9.4-12.4); Monocytes Absolute Auto 0.5 X10*3/uL (0.1-1.2); Monocytes Percent Auto 8.8 % (2-11); Neutrophils Percent Auto 55.5 % (45-73); Platelet Count 451 X10*3/uL (160-400); Red Blood Count 3.65 X10*6/uL (4.60-5.80); Red Cell Distribution Width 15.7 % (11.0-16.0); White Blood Count 5.4 X10*3/uL (4.8-10.8)
[2021-03-03 08:15] LABS: INTERNATIONAL NORM RATIO 1.4 (0.9-1.1); Prothrombin Time 15.5 SEC (9.9-13.0)
[2021-03-03 08:24] LABS: Anion Gap 14 (12-20); Blood Urea Nitrogen 10 mg/dL (9-16); C Reactive Protein 6.03 mg/dL (< or = 0.50); Calcium 8.8 mg/dL (8.4-10.2); Carbon Dioxide 25 mmol/L (22-29); Chloride 104 mmol/L (96-108); Creatinine Clr Calc Pharmacy 148.6; Estimated Glomerular Filt Rate > 60; Glucose Random 137 mg/dL (60-115); Potassium 4.5 mmol/L (3.3-5.1); Sodium 138 mmol/L (135-145)
[2021-03-03 08:28] LABS: Partial Thromboplastin Time 41.6 SEC (24.1-38.0)
--- NOTE | 2021-03-03 08:30 | PHA.PROG ---
Admission Date/Time: March 02, 2021 23:05 Indication: Ulcer Weight in k.5 kg Adjusted body weight in K.12 [place] body weight in K.2 Obesity Dosing Indication % IBW: Serum Creatinine - Last 168 Hours 03/02/21 03/03/21 17:30 08:03 Creatinine 0.60 0.63 Estimated CrCl and GFR - Last 168 Hours 03/02/21 03/03/21 17:30 08:03 Estim Creat Clear Calc 156.0 148.6 Estimated GFR > 60 > 60 Vancomycin Loading Dose: N/A Current Vancomycin Dosing Regimen: 1250 mg Q12H Date and Time for next Vancomycin Level to be drawn: 03/04 @ 0700 Pharmacist Comments on Vancomycin Plan: Vanco 1250 mg given in the ED at 1902. Continue with 1250 mg Q12H starting 03/03 @ 0800. Expect AUC 458 with a trough of 14.2. Trough to be drawn before 4th dose Pharmacy will monitor renal function daily Alejandra Berg PharmD Vancomycin dosing will take advantage of [employer] as a clinical decision support tool that uses Bayesian modeling to calculate individual patient's pharmacokinetic parameters and forecast the patient's drug concentration time course with the target goal AUC 24 range of 400 - 600 mg/L/hr.
[2021-03-03] MEDS: vancomycin HCL 1,250 MG in 0.9 % Sodium Chloride 250 ML 166.67 MG IV ×2 (08:36→21:03)
[2021-03-03] MEDS: Aspirin Enteric Coated 81 MG TABLET.DR PO (08:38)
[2021-03-03] MEDS: lisinopriL 5 MG TABLET PO (08:38)
[2021-03-03] MEDS: Gabapentin 400 MG CAPSULE 800 MG PO ×2 (08:38→21:06)
[2021-03-03] MEDS: Baclofen 20 MG TABLET 40 MG PO ×2 (08:38→21:06)
--- NOTE | 2021-03-03 08:55 | PM.CNGS ---
History of Present Illness Consult details Consult date: 03/03/21 Narrative: 66-year-old male patient with paraplegia, nonambulatory [facility] with an infected decubitus ulce in the left ischial tuberosity. He is being [facility] with frequent debridements and wound VAC treatment however the wound has become deeper with foul-smelling discharge and necrotic tissue at the wound base. He has a history of diabetes mellitus, hypertension, pulmonary embolism, and paraplegia due to a spinal injury. He is admitted for management of this worsening left ischial tuberosity ulcer. Admitting laboratories revealed normal WBC of 7.1 although his hemoglobin was 9.1. Review of Systems Review of Systems: Yes all other systems are reviewed and are negative Respiratory: Respiratory: Denies chest congestion, Denies cough and Denies pain on inspiration Gastrointestinal: Gastrointestinal: Denies abdominal pain, Reports constipation, Denies diarrhea and Denies vomiting Genitourinary: Comments: UTI Musculoskeletal: Musculoskeletal: Reports as per HPI Integumentary/Breasts: Skin/Breast: Reports as per HPI Neurologic: Reports as per HPI PMFSH Past Medical History Medical History Decubitus ulcer of right ischial tuberosity region Diabetes HTN (hypertension) Hx pulmonary embolism Osteomyelitis Osteomyelitis of left foot Paraplegia Right foot infection (Unknown) Family History Family History Father No problems noted. Mother No problems noted. Brother No problems noted. Sister No problems noted. Sister No problems noted. Sister No problems noted. Son No problems noted. Son No problems noted. Son No problems noted. Son No problems noted. Daughter No problems noted. Daughter No problems noted. Surgical History Surgical History History of spinal surgery Hx of colonoscopy Hx of foot surgery Social History Social History Household Members: Other Household Members Other:: roommate Alcohol intake: current Alcohol intake frequency: does not drink Patient Tobacco Use Status: Never used Tobacco Use of substances other than those prescribed or required for medical reasons: No Advance Directives: No Advance Directives Information Provided: No Current occupational status: disabled Meds Allergies Allergy/AdvReac Type Severity Reaction Status Date / Time levofloxacin [From LEVAQUIN] Allergy Intermediate HIVES, Verified 03/02/21 15:51 SKIN RASH seafood Allergy Intermediate Itching Verified 03/02/21 15:51 throat shellfish derived Allergy Intermediate itching Verified 03/02/21 15:51 throat Active Medications: Current Medications Acetaminophen (Acetaminophen 325 Mg Tablet) 650 mg PO Q6H PRN PRN Reason: Pain, Mild (Pain Scale 1-3) Aspirin (Aspirin Enteric Coated 81 Mg Tablet.Dr) 81 mg PO DAILY [facility] Last Admin: 03/03/21 08:38 Dose: 81 mg Documented by: Baclofen (Baclofen 20 Mg Tablet) 40 mg PO BID [facility] Last Admin: 03/03/21 08:38 Dose: 40 mg Documented by: Dextrose (Dextrose 50 % 25 Gm/50 Ml Vial) 25 gm IVPUSH Q15M PRN; Protocol PRN Reason: per Hypoglycemia Standing Ord. Docusate Sodium (Docusate Sodium 100 Mg Capsule) 100 mg PO DAILY PRN PRN Reason: Constipation Docusate Sodium (Docusate Sodium 100 Mg Capsule) 100 mg PO BID [facility] Last Admin: 03/03/21 08:49 Dose: Not Given Documented by: Gabapentin (Gabapentin 400 Mg Capsule) 800 mg PO BID [facility] Last Admin: 03/03/21 08:38 Dose: 800 mg Documented by: Glucose (Glucose Gel 15 Gm Gel..Gram.) 15 gm PO Q15M PRN; Protocol PRN Reason: per Hypoglycemia Standing Ord. Piperacillin Sod/Tazobactam (Sod 3.375 gm/ Sodium Chloride) 50 mls @ 100 mls/hr IV Q6H [facility] Last Infusion: 03/03/21 07:52 Dose: Infused Documented by: Vancomycin HCl 1,250 mg/ (Sodium Chloride) 250 mls @ 166.667 mls/hr IV Q12H [facility] Last Admin: 03/03/21 08:36 Dose: 166.67 mls/hr Documented by: Insulin Glargine (Insulin Glargine,Hum.Rec.Anlog 100 Unit/Ml 10 Ml Vial) 20 unit SUBCUT BEDTIME [facility] Insulin Human Lispro (Insulin Lispro 100 Unit/Ml 3 Ml Vial) 0 unit SUBCUT QIDACHS [facility]; Protocol Last Admin: 03/03/21 07:49 Dose: Not Given Documented by: Lisinopril (Lisinopril 5 Mg Tablet) 5 mg PO DAILY [facility]; Protocol Last Admin: 03/03/21 08:38 Dose: 5 mg Documented by: Non-Formulary Medication (Diclofenac Sodium) 2 gm TOPICAL TID-QID [facility] Ondansetron HCl (Ondansetron Hcl 4 Mg/2 Ml Vial) 4 mg IVPUSH Q8H PRN PRN Reason: Nausea and Vomiting Pharmacy Consult (Consult Rx Vancomycin Dosing) 1 each MISCELLANE DAILY PRN PRN Reason: Consult order Pharmacy Consult (Consult Rx Vancomycin Dosing) 1 each MISCELLANE DAILY PRN PRN Reason: Consult order Polyethylene Glycol (Polyethylene Glycol 3350 17 Gm Powd.Pack) 17 gm PO DAILY [facility] Last Admin: 03/03/21 08:50 Dose: Not Given Documented by: Sodium Chloride (0.9 % Sodium Chloride Flush 3 Ml Syringe) 3 ml IVFLUSH QSHIFT [facility] Last Admin: 03/03/21 08:48 Dose: 3 ml Documented by: Home Medications Medication Instructions Recorded Confirmed Last Taken Type gabapentin 800 mg tablet 800 mg PO BID 02/22/20 03/03/21 03/02/21 History lisinopril 5 mg tablet 5 mg PO DAILY 02/22/20 03/03/21 03/02/21 History metformin 1,000 mg tablet 1,000 mg PO BID 02/22/20 03/03/21 03/02/21 History aspirin 81 mg tablet,delayed 1 tab PO DAILY 09/04/20 03/03/21 03/02/21 History release apixaban 5 mg tablet (Eliquis) 1 tab PO BID 03/03/21 03/03/21 03/02/21 History baclofen 20 mg tablet 2 tab PO BID 03/03/21 03/03/21 03/02/21 History diclofenac sodium 1 % topical gel 2 g TOPICAL TID-QID 03/03/21 03/03/21 03/02/21 History insulin glargine 100 unit/mL (3 20 unit SUBCUT DAILY 03/03/21 03/03/21 03/02/21 History mL) subcutaneous pen (Lantus Solostar U-100 Insulin) latanoprost 0.005 % eye drops 1 drp OPHTHALMIC (EYE) BEDTIME 03/03/21 03/03/21 Unknown History Physical Exam Vital Signs: Vital Signs: Last Vital Signs Temp 98.4 F 03/02/21 21:43 Pulse 83 03/03/21 07:24 Resp 18 03/03/21 07:24 BP 110/57 L 03/03/21 07:24 Pulse Ox 96 03/03/21 07:24 Body Mass Index 29.5 Const: General: cooperative, no acute distress, well developed and alert Nutritional Appearance: well nourished Orientation/consciousness: patient oriented x3 Limitations: physical limitations HENMT: Head: Yes normocephalic and Yes atraumatic Ears: hearing grossly normal bilaterally Resp: Effort & Inspection: normal respiratory effort, no audible wheezes, no cough and no respiratory distress Cardio: Jugular venous distension: no JVD Rate: regular rate Rhythm: regular rhythm GI: Inspection: Yes normal to inspection Palpation (GI): Soft to palpation, not firm, nontender, no guarding and not rigid Skin: Full body images: 1. Open with gangrenous skin and foul-smelling discharge, no granulation tissue noted at base. 2. Open wound with mckeon, foul-smelling discharge, bone consistent with left ischial tuberosity at base, stage IV Neuro: General: patient oriented x3 Gait exam (Neuro): Other gait observations present (Nonambulatory, paraplegia) Results Labs Result diagrams: 03/03/21 08:03 03/03/21 08:03 Labs: Abnormal lab results 03/02/21 03/02/21 03/02/21 Range/Units 16:45 16:45 17:26 RBC 3.68 L (4.60-5.80) X10*6/uL Hgb 9.1 L (14.0-18.0) g/dl Hct 28.8 L (42-52) % MCV 78.3 L (80-98) fL MCH 24.7 L (27.0-33.0) pg MCHC (31.0-36.0) g/dl Plt Count 521 H D (160-400) X10*3/uL MPV (9.4-12.4) fL Immature Gran % (Auto) 1.7 H (0.0-0.4) % Abs Immat Gran (auto) 0.12 H (0.00-0.03) X10*3/uL PT 15.0 H (9.9-13.0) SEC INR 1.3 H (0.9-1.1) APTT (24.1-38.0) SEC POC Glucose (60-115) mg/dL Random Glucose (60-115) mg/dL AST (5-37) U/L ALT (0-40) U/L C-Reactive Protein (< or = 0.50) mg/dL Total Protein (6.5-8.0) g/dL Albumin (3.5-5.0) g/dL Urine Nitrite POS H (NEG) Ur Leukocyte Esterase 2+ H (NEG) Urine WBC 10-14 H (0-4) /HPF 03/02/21 03/03/21 03/03/21 Range/Units 17:30 07:10 08:03 RBC 3.65 L (4.60-5.80) X10*6/uL Hgb 8.8 L (14.0-18.0) g/dl Hct 28.5 L (42-52) % MCV 78.1 L (80-98) fL MCH 24.1 L (27.0-33.0) pg MCHC 30.9 L (31.0-36.0) g/dl Plt Count 451 H (160-400) X10*3/uL MPV 8.6 L (9.4-12.4) fL Immature Gran % (Auto) 2.6 H (0.0-0.4) % Abs Immat Gran (auto) 0.14 H (0.00-0.03) X10*3/uL PT (9.9-13.0) SEC INR (0.9-1.1) APTT (24.1-38.0) SEC POC Glucose 139 H (60-115) mg/dL Random Glucose (60-115) mg/dL AST 43 H (5-37) U/L ALT 73 H (0-40) U/L C-Reactive Protein (< or = 0.50) mg/dL Total Protein 8.1 H (6.5-8.0) g/dL Albumin 3.3 L (3.5-5.0) g/dL Urine Nitrite (NEG) Ur Leukocyte Esterase (NEG) Urine WBC (0-4) /HPF 03/03/21 03/03/21 Range/Units 08:03 08:03 RBC (4.60-5.80) X10*6/uL Hgb (14.0-18.0) g/dl Hct (42-52) % MCV (80-98) fL MCH (27.0-33.0) pg MCHC (31.0-36.0) g/dl Plt Count (160-400) X10*3/uL MPV (9.4-12.4) fL Immature Gran % (Auto) (0.0-0.4) % Abs Immat Gran (auto) (0.00-0.03) X10*3/uL PT 15.5 H (9.9-13.0) SEC INR 1.4 H (0.9-1.1) APTT 41.6 H (24.1-38.0) SEC POC Glucose (60-115) mg/dL Random Glucose 137 H (60-115) mg/dL AST (5-37) U/L ALT (0-40) U/L C-Reactive Protein 6.03 H (< or = 0.50) mg/dL Total Protein (6.5-8.0) g/dL Albumin (3.5-5.0) g/dL Urine Nitrite (NEG) Ur Leukocyte Esterase (NEG) Urine WBC (0-4) /HPF Short CBC 03/02/21 03/03/21 Range/Units 16:45 08:03 WBC 7.1 5.4 (4.8-10.8) X10*3/uL Hgb 9.1 L 8.8 L (14.0-18.0) g/dl Hct 28.8 L 28.5 L (42-52) % Plt Count 521 H D 451 H (160-400) X10*3/uL BMP 03/02/21 03/03/21 17:30 08:03 Sodium 139 138 Potassium 4.7 4.5 Chloride 103 104 Carbon Dioxide 29 25 BUN 14 10 Creatinine 0.60 0.63 Calcium 9.5 8.8 D Liver Function 03/02/21 Range/Units 17:30 Total Bilirubin < 0.2 (0.0-1.0) mg/dL Direct Bilirubin < 0.2 (0.0-0.5) mg/dL AST 43 H (5-37) U/L ALT 73 H (0-40) U/L Alkaline Phosphatase 98 (39-117) U/L Albumin 3.3 L (3.5-5.0) g/dL Urine 03/02/21 Range/Units 17:26 Urine Color YELLOW Urine Appearance CLEAR Urine pH 7.5 (5.0-8.0) Ur Specific [place] 1.010 (1.005-1.025) Urine Protein NEG (NEG-TRACE) MG/DL Urine Glucose (UA) NEG (NEG) MG/DL All other labs normal. Assessment and Plan (1) Decubitus ulcer of right ischial tuberosity region: Status: Acute 66-year-old male patient with multiple medical problems presenting with a nonhealing wound of the left ischium with probable osteomyelitis. There is a full-thickness ulceration with necrotic skin which clearly will require debridement down to bone. I reviewed the procedure, risks and alternatives with the patient through an player piano technician a consents to the procedure. He will be added onto the operative schedule for today. Procedures Date of Service Date of Service: 03/03/21
[2021-03-03 09:05] LABS: Erythrocyte Sedimentation Rate 111 MM/HR (0-15)
--- NOTE | 2021-03-03 09:12 | PC.NURSE ---
Nursing report given to Urban ZARCO at short stay who states the pt will be picked up for debridemnt of R hip wound at approximately 1030. Pt aware.
--- NOTE | 2021-03-03 11:18 | HO.ANESPROP2 ---
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 Mother No problems noted. Brother No problems noted. Sister No problems noted. Sister No problems noted. Sister No problems noted. Son No problems noted. Son No problems noted. Son No problems noted. Son No problems noted. Daughter No problems noted. Daughter No problems noted. Surgical History Surgical History History of spinal surgery Hx of colonoscopy Hx of foot surgery History of Problems with Anesthesia: No Social History Social History Household Members: Other Household Members Other:: roommate Alcohol intake: current Alcohol intake frequency: does not drink Patient Tobacco Use Status: Never used Tobacco Current occupational status: disabled Meds Allergies Allergy/AdvReac Type Severity Reaction Status Date / Time levofloxacin [From LEVAQUIN] Allergy Intermediate HIVES, Verified 03/02/21 15:51 SKIN RASH seafood Allergy Intermediate Itching Verified 03/02/21 15:51 throat shellfish derived Allergy Intermediate itching Verified 03/02/21 15:51 throat Active Medications: Current Medications Acetaminophen (Acetaminophen 325 Mg Tablet) 650 mg PO Q6H PRN PRN Reason: Pain, Mild (Pain Scale 1-3) Aspirin (Aspirin Enteric Coated 81 Mg Tablet.Dr) 81 mg PO DAILY [facility] Last Admin: 03/03/21 08:38 Dose: 81 mg Documented by: Baclofen (Baclofen 20 Mg Tablet) 40 mg PO BID [facility] Last Admin: 03/03/21 08:38 Dose: 40 mg Documented by: Dextrose (Dextrose 50 % 25 Gm/50 Ml Vial) 25 gm IVPUSH Q15M PRN; Protocol PRN Reason: per Hypoglycemia Standing Ord. Docusate Sodium (Docusate Sodium 100 Mg Capsule) 100 mg PO DAILY PRN PRN Reason: Constipation Docusate Sodium (Docusate Sodium 100 Mg Capsule) 100 mg PO BID [facility] Last Admin: 03/03/21 08:49 Dose: Not Given Documented by: Gabapentin (Gabapentin 400 Mg Capsule) 800 mg PO BID [facility] Last Admin: 03/03/21 08:38 Dose: 800 mg Documented by: Glucose (Glucose Gel 15 Gm Gel..Gram.) 15 gm PO Q15M PRN; Protocol PRN Reason: per Hypoglycemia Standing Ord. Piperacillin Sod/Tazobactam (Sod 3.375 gm/ Sodium Chloride) 50 mls @ 100 mls/hr IV Q6H [facility] Last Infusion: 03/03/21 07:52 Dose: Infused Documented by: Vancomycin HCl 1,250 mg/ (Sodium Chloride) 250 mls @ 166.667 mls/hr IV Q12H [facility] Last Infusion: 03/03/21 10:19 Dose: Infused Documented by: Insulin Glargine (Insulin Glargine,Hum.Rec.Anlog 100 Unit/Ml 10 Ml Vial) 20 unit SUBCUT BEDTIME [facility] Insulin Human Lispro (Insulin Lispro 100 Unit/Ml 3 Ml Vial) 0 unit SUBCUT QIDACHS [facility]; Protocol Last Admin: 03/03/21 07:49 Dose: Not Given Documented by: Lisinopril (Lisinopril 5 Mg Tablet) 5 mg PO DAILY [facility]; Protocol Last Admin: 03/03/21 08:38 Dose: 5 mg Documented by: Non-Formulary Medication (Diclofenac Sodium) 2 gm TOPICAL TID-QID [facility] Ondansetron HCl (Ondansetron Hcl 4 Mg/2 Ml Vial) 4 mg IVPUSH Q8H PRN PRN Reason: Nausea and Vomiting Pharmacy Consult (Consult Rx Vancomycin Dosing) 1 each MISCELLANE DAILY PRN PRN Reason: Consult order Pharmacy Consult (Consult Rx Vancomycin Dosing) 1 each MISCELLANE DAILY PRN PRN Reason: Consult order Polyethylene Glycol (Polyethylene Glycol 3350 17 Gm Powd.Pack) 17 gm PO DAILY [facility] Last Admin: 03/03/21 08:50 Dose: Not Given Documented by: Sodium Chloride (0.9 % Sodium Chloride Flush 3 Ml Syringe) 3 ml IVFLUSH QSHIFT [facility] Last Admin: 03/03/21 08:48 Dose: 3 ml Documented by: Home Medications Medication Instructions Recorded Confirmed Last Taken Type gabapentin 800 mg tablet 800 mg PO BID 02/22/20 03/03/21 03/02/21 History lisinopril 5 mg tablet 5 mg PO DAILY 02/22/20 03/03/21 03/02/21 History metformin 1,000 mg tablet 1,000 mg PO BID 02/22/20 03/03/21 03/02/21 History aspirin 81 mg tablet,delayed 1 tab PO DAILY 09/04/20 03/03/21 03/02/21 History release apixaban 5 mg tablet (Eliquis) 1 tab PO BID 03/03/21 03/03/21 03/02/21 History baclofen 20 mg tablet 2 tab PO BID 03/03/21 03/03/21 03/02/21 History diclofenac sodium 1 % topical gel 2 g TOPICAL TID-QID 03/03/21 03/03/21 03/02/21 History insulin glargine 100 unit/mL (3 20 unit SUBCUT DAILY 03/03/21 03/03/21 03/02/21 History mL) subcutaneous pen (Lantus Solostar U-100 Insulin) latanoprost 0.005 % eye drops 1 drp OPHTHALMIC (EYE) BEDTIME 03/03/21 03/03/21 Unknown History Exam Exam Date and Time: March 03, 2021 1118 Height,Weight and Vital Signs: Height 6 ft 2 in Weight 104.5 kg Last Vital Signs Temp 98.4 F 03/02/21 21:43 Pulse 83 03/03/21 07:24 Resp 18 03/03/21 07:24 BP 110/57 L 03/03/21 07:24 Pulse Ox 96 03/03/21 07:24 Pertinent Lab Results Pertinent Lab Results: Laboratory Tests 03/02/21 03/02/21 03/02/21 16:45 16:45 16:45 WBC 7.1 RBC 3.68 L Hgb 9.1 L Hct 28.8 L MCV 78.3 L MCH 24.7 L MCHC 31.6 RDW 15.5 Plt Count 521 H D MPV 9.7 Immature Gran % (Auto) 1.7 H Neut % (Auto) 62.8 Lymph % (Auto) 27.0 [place] % (Auto) 6.1 Eos % (Auto) 2.0 Baso % (Auto) 0.4 Lymph # (Auto) 1.9 [place] # (Auto) 0.4 Eos # (Auto) 0.1 Baso # (Auto) 0.0 Abs Immat Gran (auto) 0.12 H Absolute Neuts (auto) 4.4 Absolute Nucleated RBC 0.000 Nucleated RBC % (auto) 0.0 ESR PT 15.0 H INR 1.3 H APTT Sodium Potassium Chloride Carbon Dioxide Anion Gap BUN Creatinine Estim Creat Clear Calc Estimated GFR POC Glucose Random Glucose Lactic Acid 1.5 Calcium Total Bilirubin Direct Bilirubin AST ALT Alkaline Phosphatase C-Reactive Protein Total Protein Albumin Lipase Urine Color Urine Appearance Urine pH Ur Specific [place] Urine Protein Urine Glucose (UA) Urine Ketones Urine Blood Urine Nitrite Ur Leukocyte Esterase Urine RBC Urine WBC Ur Squamous Epith Cells Urine Bacteria COVID-19 ([facility]) COVID-19 Clin Com 03/02/21 03/02/21 03/02/21 17:26 17:30 17:49 WBC RBC Hgb Hct MCV MCH MCHC RDW Plt Count MPV Immature Gran % (Auto) Neut % (Auto) Lymph % (Auto) [place] % (Auto) Eos % (Auto) Baso % (Auto) Lymph # (Auto) [place] # (Auto) Eos # (Auto) Baso # (Auto) Abs Immat Gran (auto) Absolute Neuts (auto) Absolute Nucleated RBC Nucleated RBC % (auto) ESR PT INR APTT Sodium 139 Potassium 4.7 Chloride 103 Carbon Dioxide 29 Anion Gap 12 BUN 14 Creatinine 0.60 Estim Creat Clear Calc 156.0 Estimated GFR > 60 POC Glucose 104 Random Glucose 114 D Lactic Acid Calcium 9.5 Total Bilirubin < 0.2 Direct Bilirubin < 0.2 AST 43 H ALT 73 H Alkaline Phosphatase 98 C-Reactive Protein Total Protein 8.1 H Albumin 3.3 L Lipase 23 Urine Color YELLOW Urine Appearance CLEAR Urine pH 7.5 Ur Specific [place] 1.010 Urine Protein NEG Urine Glucose (UA) NEG Urine Ketones NEG Urine Blood NEG Urine Nitrite POS H Ur Leukocyte Esterase 2+ H Urine RBC 0 Urine WBC 10-14 H Ur Squamous Epith Cells NONE Urine Bacteria 3+ COVID-19 ([facility]) COVID-19 Clin Com 03/03/21 03/03/21 03/03/21 00:58 07:10 08:03 WBC 5.4 RBC 3.65 L Hgb 8.8 L Hct 28.5 L MCV 78.1 L MCH 24.1 L MCHC 30.9 L RDW 15.7 Plt Count 451 H MPV 8.6 L Immature Gran % (Auto) 2.6 H Neut % (Auto) 55.5 Lymph % (Auto) 29.5 [place] % (Auto) 8.8 Eos % (Auto) 3.0 Baso % (Auto) 0.6 Lymph # (Auto) 1.6 [place] # (Auto) 0.5 Eos # (Auto) 0.2 Baso # (Auto) 0.0 Abs Immat Gran (auto) 0.14 H Absolute Neuts (auto) 3.0 Absolute Nucleated RBC 0.000 Nucleated RBC % (auto) 0.0 ESR PT INR APTT Sodium Potassium Chloride Carbon Dioxide Anion Gap BUN Creatinine Estim Creat Clear Calc Estimated GFR POC Glucose 139 H Random Glucose Lactic Acid Calcium Total Bilirubin Direct Bilirubin AST ALT Alkaline Phosphatase C-Reactive Protein Total Protein Albumin Lipase Urine Color Urine Appearance Urine pH Ur Specific [place] Urine Protein Urine Glucose (UA) Urine Ketones Urine Blood Urine Nitrite Ur Leukocyte Esterase Urine RBC Urine WBC Ur Squamous Epith Cells Urine Bacteria COVID-19 ([facility]) Negative COVID-19 Clin Com See Note 03/03/21 03/03/21 03/03/21 08:03 08:03 08:03 WBC RBC Hgb Hct MCV MCH MCHC RDW Plt Count MPV Immature Gran % (Auto) Neut % (Auto) Lymph % (Auto) [place] % (Auto) Eos % (Auto) Baso % (Auto) Lymph # (Auto) [place] # (Auto) Eos # (Auto) Baso # (Auto) Abs Immat Gran (auto) Absolute Neuts (auto) Absolute Nucleated RBC Nucleated RBC % (auto) ESR 111 H PT 15.5 H INR 1.4 H APTT 41.6 H Sodium 138 Potassium 4.5 Chloride 104 Carbon Dioxide 25 Anion Gap 14 BUN 10 Creatinine 0.63 Estim Creat Clear Calc 148.6 Estimated GFR > 60 POC Glucose Random Glucose 137 H Lactic Acid Calcium 8.8 D Total Bilirubin Direct Bilirubin AST ALT Alkaline Phosphatase C-Reactive Protein 6.03 H Total Protein Albumin Lipase Urine Color Urine Appearance Urine pH Ur Specific [place] Urine Protein Urine Glucose (UA) Urine Ketones Urine Blood Urine Nitrite Ur Leukocyte Esterase Urine RBC Urine WBC Ur Squamous Epith Cells Urine Bacteria COVID-19 ([facility]) COVID-19 Clin Com Assessment and Plan Final Anesthetic Review History of Problems with Anesthesia: No
--- NOTE | 2021-03-03 12:23 | MHC.CM.PN ---
Attempted to meet with patient in regards to discharge planning. Patient is currently in short stay surgery. Will attempt to meet again. Continue to monitor for d/c needs.
--- NOTE | 2021-03-03 13:26 | W.PM.OPN ---
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 Patient was evaluated by the visiting nurses and felt to have a worsening wound. Patient sent to the emergency department for further management. Operative findings: Left ischial decubitus ulcer located at the junction of the buttock and medial posterior thigh with an ulcer measuring approximately a 12 x 4 cm. Skin is macerated from moisture on the skin. Tunneling is noted in the more medial portion of the incision extending under the skin approximately 5 cm. Skin and subcutaneous tissue was debrided measuring 12 x 4 x 3 cm. Specimen: Wound culture, ischial skin for routine pathology Estimated blood loss: 25 mL Complications: none Procedure details: patient was brought to the OR and placed in a supine position. After administering general anesthesia he was placed in a prone position. The skin of the left buttock and upper thigh was prepped with Betadine and draped in a sterile fashion. A surgical time-out was called the consent confirmed. Patient received preoperative antibiotics. Electrocautery was then used to excise the margins of the skin circumferentially in an area measuring approximately 12 x 4 x 3 cm. Dissection was continued down along the granulation tissue at the base. Dissection was continued until viable bleeding tissue was identified. A portion of the debrided skin was sent for surgical pathology to evaluate for malignancy. A tunnel noted in the more medial portion of the incision was opened superiorly and completely debrided using electrocautery. Hemostasis was then assured using electrocautery. Wounds were then thoroughly irrigated using a Pulsavac. Wounds were then packed using Betadine-soaked Kerlix followed by fluffed gauze and ABD pad. Patient tolerated the procedure well. Sponge, instrument, and needle counts reported as correct. The patient was transferred to PACU in stable condition.
[2021-03-03] MEDS: Acetaminophen 325 MG TABLET 650 MG PO (14:18)
--- NOTE | 2021-03-03 15:05 | MHC.CLN ---
RE: CONSULT PT IS CURRENTLY NPO RECOMMEND ADDING ENSURE AND ELLE TO PROMOTE WOUND HEALING WHEN DIET ADVANCES FULL NUTRITION CONSULT TO FOLLOW
[2021-03-03 16:26] LABS: Glucose, Whole Blood 179 mg/dL (60-115)
--- NOTE | 2021-03-03 16:52 | HO.PM.IMPN ---
Subjective Subjective Date of Service: 03/03/21 Interval History: ?66-year-old male who is paraplegic presents to the hospital with a new nonhealing wound. Review of Systems Still draining some discharge as per staff. Denies significant pain in the area for right upper leg Denies any chest pain or shortness of breath or abdominal pain or fever or chills. Physical Exam Vital Signs: Vital Signs: Last Vital Signs Temp 97.6 F 03/03/21 16:00 Pulse 77 03/03/21 16:00 Resp 17 03/03/21 16:00 BP 118/59 L 03/03/21 16:00 Pulse Ox 96 03/03/21 16:00 Body Mass Index 29.5 Physical exam: Appearance: Alert.? Oriented X3.? Eyes: Pupils equal, round and reactive to light.? Sclera nonicteric.? cvs: rrr, [id number] , no murmur res: clear to auscultation ,no rhonchii or wheezing abd: no rebound or guarding ,nt, bs present. skin:?Has 2 open wounds in the decubitus region with some malodorous discolored discharge ext pulses present , no cyanosis ,Gait well balanced well coordinated. neuro: axo3 , nonfocal. Objective Data Active Medications Acetaminophen (Acetaminophen 325 Mg Tablet) 650 mg PO Q6H PRN PRN Reason: Pain, Mild (Pain Scale 1-3) Last Admin: 03/03/21 14:18 Dose: 650 mg Documented by: SHAILA Aspirin (Aspirin Enteric Coated 81 Mg Tablet.) 81 mg PO DAILY [facility] Last Admin: 03/03/21 08:38 Dose: 81 mg Documented by: ANAND Baclofen (Baclofen 20 Mg Tablet) 40 mg PO BID [facility] Last Admin: 03/03/21 08:38 Dose: 40 mg Documented by: ANAND Dextrose (Dextrose 50 % 25 Gm/50 Ml Vial) 25 gm IVPUSH Q15M PRN; Protocol PRN Reason: per Hypoglycemia Standing Ord. Docusate Sodium (Docusate Sodium 100 Mg Capsule) 100 mg PO DAILY PRN PRN Reason: Constipation Docusate Sodium (Docusate Sodium 100 Mg Capsule) 100 mg PO BID [facility] Last Admin: 03/03/21 08:49 Dose: Not Given Documented by: ANAND Non-Admin Reason: Patient Refused Gabapentin (Gabapentin 400 Mg Capsule) 800 mg PO BID [facility] Last Admin: 03/03/21 08:38 Dose: 800 mg Documented by: ANAND Glucose (Glucose Gel 15 Gm Gel..Gram.) 15 gm PO Q15M PRN; Protocol PRN Reason: per Hypoglycemia Standing Ord. Vancomycin HCl 1,250 mg/ (Sodium Chloride) 250 mls @ 166.667 mls/hr IV Q12H [facility] Last Infusion: 03/03/21 10:19 Dose: 0 mls/hr Documented by: OSCAR Piperacillin Sod/Tazobactam (Sod 3.375 gm/ Sodium Chloride) 50 mls @ 100 mls/hr IV Q6H [facility] Insulin Glargine (Insulin Glargine,Hum.Rec.Anlog 100 Unit/Ml 10 Ml Vial) 20 unit SUBCUT BEDTIME [facility] Insulin Human Lispro (Insulin Lispro 100 Unit/Ml 3 Ml Vial) 0 unit SUBCUT QIDACHS [facility]; Protocol Last Admin: 03/03/21 07:49 Dose: Not Given Documented by: ANAND Non-Admin Reason: No Insulin Coverage Lisinopril (Lisinopril 5 Mg Tablet) 5 mg PO DAILY [facility]; Protocol Last Admin: 03/03/21 08:38 Dose: 5 mg Documented by: ANAND Ondansetron HCl (Ondansetron Hcl 4 Mg/2 Ml Vial) 4 mg IVPUSH Q8H PRN PRN Reason: Nausea and Vomiting Pharmacy Consult (Consult Rx Vancomycin Dosing) 1 each MISCELLANE DAILY PRN PRN Reason: Consult order Pharmacy Consult (Consult Rx Vancomycin Dosing) 1 each MISCELLANE DAILY PRN PRN Reason: Consult order Polyethylene Glycol (Polyethylene Glycol 3350 17 Gm Powd.Pack) 17 gm PO DAILY [facility] Last Admin: 03/03/21 08:50 Dose: Not Given Documented by: ANAND Non-Admin Reason: Patient Refused Sodium Chloride (0.9 % Sodium Chloride Flush 3 Ml Syringe) 3 ml IVFLUSH QSHIFT [facility] Last Admin: 03/03/21 08:48 Dose: 3 ml Documented by: ANAND Labs CBC & Chem 7: 03/03/21 08:03 03/03/21 08:03 Labs: Laboratory Results - last 24 hr 03/02/21 03/02/21 03/02/21 16:45 16:45 16:45 MCV 78.3 L MCH 24.7 L MCHC 31.6 RDW 15.5 Plt Count 521 H D MPV 9.7 Immature Gran % (Auto) 1.7 H Neut % (Auto) 62.8 Lymph % (Auto) 27.0 [place] % (Auto) 6.1 Eos % (Auto) 2.0 Baso % (Auto) 0.4 Lymph # (Auto) 1.9 [place] # (Auto) 0.4 Eos # (Auto) 0.1 Baso # (Auto) 0.0 Abs Immat Gran (auto) 0.12 H Absolute Neuts (auto) 4.4 Absolute Nucleated RBC 0.000 Nucleated RBC % (auto) 0.0 ESR PT 15.0 H INR 1.3 H APTT Anion Gap Estim Creat Clear Calc Estimated GFR POC Glucose Random Glucose Lactic Acid 1.5 Calcium Total Bilirubin Direct Bilirubin AST ALT Alkaline Phosphatase C-Reactive Protein Total Protein Albumin Lipase Urine Color Urine Appearance Urine pH Ur Specific [place] Urine Protein Urine Glucose (UA) Urine Ketones Urine Blood Urine Nitrite Ur Leukocyte Esterase Urine RBC Urine WBC Ur Squamous Epith Cells Urine Bacteria COVID-19 ([facility]) COVID-19 Clin Com 03/02/21 03/02/21 03/02/21 17:26 17:30 17:49 MCV MCH MCHC RDW Plt Count MPV Immature Gran % (Auto) Neut % (Auto) Lymph % (Auto) [place] % (Auto) Eos % (Auto) Baso % (Auto) Lymph # (Auto) [place] # (Auto) Eos # (Auto) Baso # (Auto) Abs Immat Gran (auto) Absolute Neuts (auto) Absolute Nucleated RBC Nucleated RBC % (auto) ESR PT INR APTT Anion Gap 12 Estim Creat Clear Calc 156.0 Estimated GFR > 60 POC Glucose 104 Random Glucose 114 D Lactic Acid Calcium 9.5 Total Bilirubin < 0.2 Direct Bilirubin < 0.2 AST 43 H ALT 73 H Alkaline Phosphatase 98 C-Reactive Protein Total Protein 8.1 H Albumin 3.3 L Lipase 23 Urine Color YELLOW Urine Appearance CLEAR Urine pH 7.5 Ur Specific [place] 1.010 Urine Protein NEG Urine Glucose (UA) NEG Urine Ketones NEG Urine Blood NEG Urine Nitrite POS H Ur Leukocyte Esterase 2+ H Urine RBC 0 Urine WBC 10-14 H Ur Squamous Epith Cells NONE Urine Bacteria 3+ COVID-19 ([facility]) COVID-19 Clin Com 03/03/21 03/03/21 03/03/21 00:58 07:10 08:03 MCV 78.1 L MCH 24.1 L MCHC 30.9 L RDW 15.7 Plt Count 451 H MPV 8.6 L Immature Gran % (Auto) 2.6 H Neut % (Auto) 55.5 Lymph % (Auto) 29.5 [place] % (Auto) 8.8 Eos % (Auto) 3.0 Baso % (Auto) 0.6 Lymph # (Auto) 1.6 [place] # (Auto) 0.5 Eos # (Auto) 0.2 Baso # (Auto) 0.0 Abs Immat Gran (auto) 0.14 H Absolute Neuts (auto) 3.0 Absolute Nucleated RBC 0.000 Nucleated RBC % (auto) 0.0 ESR PT INR APTT Anion Gap Estim Creat Clear Calc Estimated GFR POC Glucose 139 H Random Glucose Lactic Acid Calcium Total Bilirubin Direct Bilirubin AST ALT Alkaline Phosphatase C-Reactive Protein Total Protein Albumin Lipase Urine Color Urine Appearance Urine pH Ur Specific [place] Urine Protein Urine Glucose (UA) Urine Ketones Urine Blood Urine Nitrite Ur Leukocyte Esterase Urine RBC Urine WBC Ur Squamous Epith Cells Urine Bacteria COVID-19 ([facility]) Negative COVID-19 Clin Com See Note 03/03/21 03/03/21 03/03/21 08:03 08:03 08:03 MCV MCH MCHC RDW Plt Count MPV Immature Gran % (Auto) Neut % (Auto) Lymph % (Auto) [place] % (Auto) Eos % (Auto) Baso % (Auto) Lymph # (Auto) [place] # (Auto) Eos # (Auto) Baso # (Auto) Abs Immat Gran (auto) Absolute Neuts (auto) Absolute Nucleated RBC Nucleated RBC % (auto) ESR 111 H PT 15.5 H INR 1.4 H APTT 41.6 H Anion Gap 14 Estim Creat Clear Calc 148.6 Estimated GFR > 60 POC Glucose Random Glucose 137 H Lactic Acid Calcium 8.8 D Total Bilirubin Direct Bilirubin AST ALT Alkaline Phosphatase C-Reactive Protein 6.03 H Total Protein Albumin Lipase Urine Color Urine Appearance Urine pH Ur Specific [place] Urine Protein Urine Glucose (UA) Urine Ketones Urine Blood Urine Nitrite Ur Leukocyte Esterase Urine RBC Urine WBC Ur Squamous Epith Cells Urine Bacteria COVID-19 ([facility]) COVID-19 Clin Com 03/03/21 16:21 MCV MCH MCHC RDW Plt Count MPV Immature Gran % (Auto) Neut % (Auto) Lymph % (Auto) [place] % (Auto) Eos % (Auto) Baso % (Auto) Lymph # (Auto) [place] # (Auto) Eos # (Auto) Baso # (Auto) Abs Immat Gran (auto) Absolute Neuts (auto) Absolute Nucleated RBC Nucleated RBC % (auto) ESR PT INR APTT Anion Gap Estim Creat Clear Calc Estimated GFR POC Glucose 179 H Random Glucose Lactic Acid Calcium Total Bilirubin Direct Bilirubin AST ALT Alkaline Phosphatase C-Reactive Protein Total Protein Albumin Lipase Urine Color Urine Appearance Urine pH Ur Specific [place] Urine Protein Urine Glucose (UA) Urine Ketones Urine Blood Urine Nitrite Ur Leukocyte Esterase Urine RBC Urine WBC Ur Squamous Epith Cells Urine Bacteria COVID-19 ([facility]) COVID-19 Clin Com Microbiology Microbiology Results: Microbiology 03/02/21 18:01 Urine Culture - Final Urine clean catch - Urine mckeon top Assessment and Plan (1) Decubital ulcer: Status: Acute Assessment and Plan: 66-year-old male who is paraplegic presents to the hospital with a new nonhealing wound 1. decubitus ulcer of right ischial tuberosity - appears infected with malodorous discolored discharge continue vanco and zosyn day 2. vanco trough. - follow culture - general surgery consult-possible debridement . - wound care consult 2.UTI - patient has chronic catheter - positive nitrites, leukocyte Estrace and WBC - will be treated with IV antibiotics for above - follow culture 3. hypertension - stable - continue home medication 4.history of PE - hold Eliquis in anticipation of possible surgical intervention 5.diabetes: fs 100--179. - hold metformin - continue insulin - will add low-dose sliding since - diabetic diet DVT prophylaxis:? SCDs Quality Stroke Does the patient have a stroke diagnosis?: No VTE Prior VTE?: No VTE Risk Level:: Medical - moderate - high VTE Device Contraindication: N/A - Device Ordered VTE Drug Contraindication: Treatment Not Tolerated
[2021-03-03] MEDS: Insulin Lispro 100 UNIT/ML 3 ML VIAL SUBCUT ×2 (17:58→21:07)
[2021-03-03 20:54] LABS: Glucose, Whole Blood 285 mg/dL (60-115)
[2021-03-03] MEDS: Docusate Sodium 100 MG CAPSULE PO (21:06)
[2021-03-03] MEDS: Insulin Glargine,Hum.rec.anlog 100 UNIT/ML 10 ML VIAL 20 UNIT SUBCUT (21:08)
[2021-03-04] VITALS (7 sets, daily range): BP systolic 100–139; BP diastolic 53–81; PULSE 72–86; RESP 16–18; TEMP 36.2–37.1; O2SAT 94–97; BMI 29.5
[2021-03-04] MEDS: 0.9 % Sodium Chloride Flush 3 ML SYRINGE IVFLUSH ×3 (00:29→16:59)
[2021-03-04] MEDS: Piperacillin Sodium/Tazobactam 3.375 GM in 0.9 % Sodium Chloride 50 ML IV ×4 (00:30→17:03)
[2021-03-04 07:29] LABS: Glucose, Whole Blood 170 mg/dL (60-115)
[2021-03-04] MEDS: Insulin Lispro 100 UNIT/ML 3 ML VIAL SUBCUT ×4 (07:43→21:29)
[2021-03-04] MEDS: vancomycin HCL 1,250 MG in 0.9 % Sodium Chloride 250 ML 167 MG IV ×2 (07:44→21:28)
[2021-03-04 07:45] LABS: Estimated Glomerular Filt Rate > 60
[2021-03-04] MEDS: Baclofen 20 MG TABLET 40 MG PO ×2 (07:45→21:27)
[2021-03-04] MEDS: Docusate Sodium 100 MG CAPSULE PO ×2 (07:46→21:27)
[2021-03-04] MEDS: lisinopriL 5 MG TABLET PO (07:46)
[2021-03-04] MEDS: Gabapentin 400 MG CAPSULE 800 MG PO ×2 (07:46→21:27)
[2021-03-04] MEDS: Aspirin Enteric Coated 81 MG TABLET.DR PO (07:46)
[2021-03-04] MEDS: polyethylene glycoL 3350 17 GM POWD.PACK PO (07:51)
[2021-03-04 07:56] LABS: Vancomycin Trough 11.7 mcg/mL (10.0-20.0)
--- NOTE | 2021-03-04 09:25 | MHC.CM.PN ---
Addendum entered by Abbey Tavarez 03/04/21 09:54: PATIENT IS ACTIVE WITH [facility] FOR SKILLED RN VISITS Original Note: PATIENT LIVES WITH HIS SIGNIFICANT OTHER HE USES AN ELECTRIC WHEEL CHAIR IN THE HOME. PATIENT USES THE [facility] ON TUESDAY, AND A [facility] PROVIDES RN VISITS ON THURSDAYS AND SATURDAYS. HE THINKS IT IS [facility]. REFERRAL PLACED TO INQUIRE. NO HCP ON FILE AND HE AGREES TO ASSIGN ONE HERE. CASE MANAGEMENT TO ASSIST AND LEAVE COPY IN CHART ONCE COMPLETED. IMM 03/04 IN CHART
--- NOTE | 2021-03-04 10:18 | PC.NURSE ---
Wound assessment completed. Patient has a stage 4 pressure ulcer to left buttock/thigh with tunneling measuring 12 x [address] Vail performed a surgical debridement on 03/03/21. Patient also has a healed wound on left hip with pink scar. The wound was cleansed with normal saline then silver alginate applied to wound bed and tucked into deeper areas covered with non woven gauze and ABD pad. No other skin issues noted at this time.
--- NOTE | 2021-03-04 11:10 | MHC.CLN ---
NUTRITION CONSULT PATIENT WITH STAGE IV WOUND TO LEFT ISCHIAL TUBEROSITY. VISITED PATIENT WITH ADVERTISING DIRECTOR ON UNIT. STATED THAT EATS WELL AT HOME. WAS ADVISED TO DRINK HIGH PROTEIN SUPPLEMENT AT HOME AND TAKES AT HOME. RD TO ADD ENSURE MAX PROTEIN 330 ML BID TO PROVIDE 300 KCAL, 60 G PROTEIN. PATIENT DIET=DIABETIC 2200 KCAL. APPEARS WELL NOURISHED WITH BMI=29.5. SUPPLEMENT APPROPRIATE WITH LOWER CALORIES AND HIGHER PROTEIN. CONTINUE TO FOLLOW.
[2021-03-04 12:26] LABS: Glucose, Whole Blood 223 mg/dL (60-115)
--- NOTE | 2021-03-04 12:27 | P.PNIM_ITS ---
Subjective Subjective Date of Service: 03/04/21 Interval History: decubitii-s/p dissection yesterday still has some bloody soaking also Denies any new complaint of chest pain or shortness of breath or abdominal pain or fever or chills or nausea or vomiting Denies any cough Physical Exam Vital Signs: Vital Signs: Last Vital Signs Temp 98.7 F 03/04/21 11:53 Pulse 85 03/04/21 11:53 Resp 18 03/04/21 11:53 BP 112/59 L 03/04/21 11:53 Pulse Ox 97 03/04/21 11:53 Body Mass Index 29.5 Appearance: Alert.? Oriented X3.? Eyes: Pupils equal, round and reactive to light.? Sclera nonicteric.? cvs: [id number], [id number] , no murmur res: clear to auscultation ,no rhonchii or wheezing abd: no rebound or guarding ,nt, bs present. skin:??Left ischial decubitus ulcer located at the junction of the buttock and medial posterior thigh-s/p dissection-still has some bloody soaking also. ext pulses present , no cyanosis ,Gait well balanced well coordinated. neuro: axo3 , nonfocal. Objective Data Active Medications Acetaminophen (Acetaminophen 325 Mg Tablet) 650 mg PO Q6H PRN PRN Reason: Pain, Mild (Pain Scale 1-3) Last Admin: 03/03/21 14:18 Dose: 650 mg Documented by: SHAILA Aspirin (Aspirin Enteric Coated 81 Mg Tablet.) 81 mg PO DAILY [facility] Last Admin: 03/04/21 07:46 Dose: 81 mg Documented by: CAROLE Baclofen (Baclofen 20 Mg Tablet) 40 mg PO BID [facility] Last Admin: 03/04/21 07:45 Dose: 40 mg Documented by: CAROLE Dextrose (Dextrose 50 % 25 Gm/50 Ml Vial) 25 gm IVPUSH Q15M PRN; Protocol PRN Reason: per Hypoglycemia Standing Ord. Docusate Sodium (Docusate Sodium 100 Mg Capsule) 100 mg PO DAILY PRN PRN Reason: Constipation Docusate Sodium (Docusate Sodium 100 Mg Capsule) 100 mg PO BID [facility] Last Admin: 03/04/21 07:46 Dose: 100 mg Documented by: CAROLE Gabapentin (Gabapentin 400 Mg Capsule) 800 mg PO BID [facility] Last Admin: 03/04/21 07:46 Dose: 800 mg Documented by: CAROLE Glucose (Glucose Gel 15 Gm Gel..Gram.) 15 gm PO Q15M PRN; Protocol PRN Reason: per Hypoglycemia Standing Ord. Vancomycin HCl 1,250 mg/ (Sodium Chloride) 250 mls @ 166.667 mls/hr IV Q12H [facility] Last Infusion: 03/04/21 10:25 Dose: 0 mls/hr Documented by: CAROLE Piperacillin Sod/Tazobactam (Sod 3.375 gm/ Sodium Chloride) 50 mls @ 100 mls/hr IV Q6H [facility] Last Infusion: 03/04/21 06:42 Dose: 0 mls/hr Documented by: FRANKO Insulin Glargine (Insulin Glargine,Hum.Rec.Anlog 100 Unit/Ml 10 Ml Vial) 20 unit SUBCUT BEDTIME [facility] Last Admin: 03/03/21 21:08 Dose: 20 unit Documented by: DAISY Insulin Human Lispro (Insulin Lispro 100 Unit/Ml 3 Ml Vial) 0 unit SUBCUT QIDACHS [facility]; Protocol Last Admin: 03/04/21 07:43 Dose: 2 unit Documented by: CAROLE Lisinopril (Lisinopril 5 Mg Tablet) 5 mg PO DAILY [facility]; Protocol Last Admin: 03/04/21 07:46 Dose: 5 mg Documented by: CAROLE Ondansetron HCl (Ondansetron Hcl 4 Mg/2 Ml Vial) 4 mg IVPUSH Q8H PRN PRN Reason: Nausea and Vomiting Pharmacy Consult (Consult Rx Vancomycin Dosing) 1 each MISCELLANE DAILY PRN PRN Reason: Consult order Pharmacy Consult (Consult Rx Vancomycin Dosing) 1 each MISCELLANE DAILY PRN PRN Reason: Consult order Polyethylene Glycol (Polyethylene Glycol 3350 17 Gm Powd.Pack) 17 gm PO DAILY [facility] Last Admin: 03/04/21 07:51 Dose: 17 gm Documented by: CAROLE Sodium Chloride (0.9 % Sodium Chloride Flush 3 Ml Syringe) 3 ml IVFLUSH QSHIFT [facility] Last Admin: 03/04/21 07:51 Dose: 3 ml Documented by: CAROLE Labs CBC & Chem 7: 03/03/21 08:03 03/04/21 07:20 Labs: Laboratory Results - last 24 hr 03/03/21 03/03/21 03/04/21 16:21 20:48 07:20 Estim Creat Clear Calc 144.0 Estimated GFR > 60 POC Glucose 179 H 285 H Vancomycin Trough 03/04/21 03/04/21 03/04/21 07:20 07:22 11:18 Estim Creat Clear Calc Estimated GFR POC Glucose 170 H 223 H Vancomycin Trough 11.7 Microbiology Microbiology Results: Microbiology 03/03/21 Unknown Gram Stain - Final Thigh Left Routine Culture - Preliminary Culture in progress. 03/02/21 16:45 Blood Culture - Preliminary Blood - Venous No growth after 24 hours. 03/02/21 16:45 Blood Culture - Preliminary Blood - Venous No growth after 24 hours. 03/02/21 18:01 Urine Culture - Final Urine clean catch - Urine mckeon top Assessment and Plan (1) Decubital ulcer: Status: Acute Assessment and Plan: 66-year-old male who is paraplegic presents to the hospital with a new nonhealing wound 1. decubitus ulcer of right ischial tuberosity - appears infected with malodorous discolored discharge status post dissection yesterday. continue vanco and zosyn? day 3. vanco trough-11.7 Monitor Vanco trough, renal function electrolytes, follow culture General surgery and wound care following 2.UTI - patient has chronic catheter - positive nitrites, leukocyte Estrace and WBC - will be treated with IV antibiotics for above - follow culture 3. hypertension - stable - continue home medication 4.history of PE - hold Eliquis in anticipation of possible surgical intervention 5.diabetes: fs 130-200. - hold metformin - continue insulin - will add low-dose sliding since - diabetic diet Quality Stroke Does the patient have a stroke diagnosis?: No VTE Prior VTE?: No VTE Risk Level:: Medical - moderate - high VTE Device Contraindication: N/A - Device Ordered VTE Drug Contraindication: Treatment Not Tolerated
[2021-03-04 16:34] LABS: Glucose, Whole Blood 168 mg/dL (60-115)
--- NOTE | 2021-03-04 17:39 | W.PM.IDCN ---
History of Present Illness Data of Consult Service Date: 03/04/21 Requesting physician: Yg Shirley Primary Care Provider: Jose Grayson MD [facility] Reason for consult: decubitus ulcer He is paraplegic presents per Wound Care with worsening decubitus ulcer groin. 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 He has no cultures back yet Review of Systems Review of Systems: Yes all other systems are reviewed and are negative PMFSH Past Medical History Medical History Decubitus ulcer of right ischial tuberosity region Diabetes HTN (hypertension) Hx pulmonary embolism Osteomyelitis Osteomyelitis of left foot Paraplegia Right foot infection (Unknown) Functional capacity: bed bound Family History Family History Father No problems noted. Mother No problems noted. Brother No problems noted. Sister No problems noted. Sister No problems noted. Sister No problems noted. Son No problems noted. Son No problems noted. Son No problems noted. Son No problems noted. Daughter No problems noted. Daughter No problems noted. Surgical History Surgical History History of spinal surgery Hx of colonoscopy Hx of foot surgery Social History Social History Household Members: Significant Other Household Members Other:: roommate Housing: House Do you presently have visiting nurse or other home services: Yes Alcohol intake: current Alcohol intake frequency: does not drink Patient Tobacco Use Status: Never used Tobacco Second Hand Smoke Exposure: No Current occupational status: disabled Meds Allergies Allergy/AdvReac Type Severity Reaction Status Date / Time levofloxacin [From LEVAQUIN] Allergy Intermediate HIVES, Verified 03/02/21 15:51 SKIN RASH seafood Allergy Intermediate Itching Verified 03/02/21 15:51 throat shellfish derived Allergy Intermediate itching Verified 03/02/21 15:51 throat Active Medications: Current Medications Acetaminophen (Acetaminophen 325 Mg Tablet) 650 mg PO Q6H PRN PRN Reason: Pain, Mild (Pain Scale 1-3) Last Admin: 03/03/21 14:18 Dose: 650 mg Documented by: Aspirin (Aspirin Enteric Coated 81 Mg Tablet.) 81 mg PO DAILY COUNTS [facility]CLUDE 234 BEDS AT [facility] Last Admin: 03/04/21 07:46 Dose: 81 mg Documented by: Baclofen (Baclofen 20 Mg Tablet) 40 mg PO BID COUNTS [facility]CLUDE 234 BEDS AT THE [facility] Last Admin: 03/04/21 07:45 Dose: 40 mg Documented by: Dextrose (Dextrose 50 % 25 Gm/50 Ml Vial) 25 gm IVPUSH Q15M PRN; Protocol PRN Reason: per Hypoglycemia Standing Ord. Docusate Sodium (Docusate Sodium 100 Mg Capsule) 100 mg PO DAILY PRN PRN Reason: Constipation Docusate Sodium (Docusate Sodium 100 Mg Capsule) 100 mg PO BID COUNTS [facility]CLUDE 234 BEDS AT THE [facility] Last Admin: 03/04/21 07:46 Dose: 100 mg Documented by: Gabapentin (Gabapentin 400 Mg Capsule) 800 mg PO BID COUNTS [facility]CLUDE 234 BEDS AT THE [facility] Last Admin: 03/04/21 07:46 Dose: 800 mg Documented by: Glucose (Glucose Gel 15 Gm Gel..Gram.) 15 gm PO Q15M PRN; Protocol PRN Reason: per Hypoglycemia Standing Ord. Vancomycin HCl 1,250 mg/ (Sodium Chloride) 250 mls @ 166.667 mls/hr IV Q12H COUNTS [facility]CLUDE 234 BEDS AT THE [facility] Last Infusion: 03/04/21 10:25 Dose: Infused Documented by: Piperacillin Sod/Tazobactam (Sod 3.375 gm/ Sodium Chloride) 50 mls @ 100 mls/hr IV Q6H COUNTS [facility]CLUDE 234 BEDS AT THE [facility] Last Admin: 03/04/21 17:03 Dose: 100 mls/hr Documented by: Insulin Glargine (Insulin Glargine,Hum.Rec.Anlog 100 Unit/Ml 10 Ml Vial) 20 unit SUBCUT BEDTIME COUNTS [facility]CLUDE 234 BEDS AT THE [facility] Last Admin: 03/03/21 21:08 Dose: 20 unit Documented by: Insulin Human Lispro (Insulin Lispro 100 Unit/Ml 3 Ml Vial) 0 unit SUBCUT QIDACHS COUNTS [facility]CLUDE 234 BEDS AT THE [facility]; Protocol Last Admin: 03/04/21 16:58 Dose: 2 unit Documented by: Lisinopril (Lisinopril 5 Mg Tablet) 5 mg PO DAILY [facility]S [facility]CLUDE 234 BEDS AT [facility]; Protocol Last Admin: 03/04/21 07:46 Dose: 5 mg Documented by: Ondansetron HCl (Ondansetron Hcl 4 Mg/2 Ml Vial) 4 mg IVPUSH Q8H PRN PRN Reason: Nausea and Vomiting Pharmacy Consult (Consult Rx Vancomycin Dosing) 1 each MISCELLANE DAILY PRN PRN Reason: Consult order Pharmacy Consult (Consult Rx Vancomycin Dosing) 1 each MISCELLANE DAILY PRN PRN Reason: Consult order Polyethylene Glycol (Polyethylene Glycol 3350 17 Gm Powd.Pack) 17 gm PO DAILY COUNTS [facility]CLUDE 234 BEDS AT [facility] Last Admin: 03/04/21 07:51 Dose: 17 gm Documented by: Sodium Chloride (0.9 % Sodium Chloride Flush 3 Ml Syringe) 3 ml IVFLUSH QSHIFT COUNTS INCLUDE 234 BEDS AT THE [facility] Last Admin: 03/04/21 16:59 Dose: 3 ml Documented by: Home Medications Medication Instructions Recorded Confirmed Last Taken Type gabapentin 800 mg tablet 800 mg PO BID 02/22/20 03/03/21 03/02/21 History lisinopril 5 mg tablet 5 mg PO DAILY 02/22/20 03/03/21 03/02/21 History metformin 1,000 mg tablet 1,000 mg PO BID 02/22/20 03/03/21 03/02/21 History aspirin 81 mg tablet,delayed 1 tab PO DAILY 09/04/20 03/03/21 03/02/21 History release apixaban 5 mg tablet (Eliquis) 1 tab PO BID 03/03/21 03/03/21 03/02/21 History baclofen 20 mg tablet 2 tab PO BID 03/03/21 03/03/21 03/02/21 History diclofenac sodium 1 % topical gel 2 g TOPICAL TID-QID 03/03/21 03/03/21 03/02/21 History insulin glargine 100 unit/mL (3 20 unit SUBCUT DAILY 03/03/21 03/03/21 03/02/21 History mL) subcutaneous pen (Lantus Solostar U-100 Insulin) latanoprost 0.005 % eye drops 1 drp OPHTHALMIC (EYE) BEDTIME 03/03/21 03/03/21 Unknown History Physical Exam Vital Signs: Vital Signs: Last Vital Signs Temp 98.3 F 03/04/21 15:30 Pulse 86 03/04/21 15:30 Resp 17 03/04/21 15:30 BP 115/56 L 03/04/21 15:30 Pulse Ox 97 03/04/21 15:30 Body Mass Index 29.5 Const: General: cooperative HENMT: Head: Yes normal to inspection Mouth: Normal oral and palatal mucosa present Resp: Effort & Inspection: normal respiratory effort Cardio: Rate: regular rate Rhythm: regular rhythm GI: Palpation (GI): Soft to palpation and nontender : Other: left of scrotal groin area packed Results Labs CBC & Chem 7: 03/03/21 08:03 03/04/21 07:20 Labs: BMP 03/04/21 07:20 Creatinine 0.65 Microbiology Microbiology Results: Microbiology 03/03/21 Unknown Thigh Left Gram Stain - Final 03/03/21 Unknown Thigh Left Routine Culture - Preliminary Culture in progress. 03/02/21 16:45 Blood - Venous Blood Culture - Preliminary No growth after 24 hours. 03/02/21 16:45 Blood - Venous Blood Culture - Preliminary No growth after 24 hours. 03/02/21 18:01 Urine clean catch - Urine mckeon top Urine Culture - Final Assessment and Plan (1) Decubital ulcer: Status: Acute He has deep ulcer. It is being cultured and Dr Cobos is checking for malignancy Continue Vancomycin and Zosyn for now Await cultures and pathology
[2021-03-04 20:52] LABS: Glucose, Whole Blood 193 mg/dL (60-115)
[2021-03-04] MEDS: Insulin Glargine,Hum.rec.anlog 100 UNIT/ML 10 ML VIAL 20 UNIT SUBCUT (21:30)
[2021-03-05] MEDS: Piperacillin Sodium/Tazobactam 3.375 GM in 0.9 % Sodium Chloride 50 ML IV ×5 (00:51→23:29)
[2021-03-05] MEDS: 0.9 % Sodium Chloride Flush 3 ML SYRINGE IVFLUSH ×4 (00:51→23:29)
[2021-03-05 03:41] VITALS: BP 100/59; PULSE 84; RESP 16; TEMP 36.9; O2SAT 96
[2021-03-05 05:35] LABS: Hematocrit 26.1 % (42-52); Hemoglobin 8.2 g/dl (14.0-18.0)
[2021-03-05 05:50] LABS: Creatinine Clr Calc Pharmacy 105.2; Estimated Glomerular Filt Rate > 60
[2021-03-05 07:12] VITALS: BP 103/55; PULSE 79; RESP 16; TEMP 36.6; O2SAT 95
[2021-03-05 07:19] LABS: Glucose, Whole Blood 167 mg/dL (60-115)
--- NOTE | 2021-03-05 07:40 | PM.PNGS ---
Subjective Subjective Date of Service: 03/05/21 Interval history: Patient feels well, denies any new complaints, no leg pain Physical Exam Vital Signs: Vital Signs: Last Vital Signs Temp 98 F 03/05/21 07:12 Pulse 79 03/05/21 07:12 Resp 16 03/05/21 07:12 BP 103/55 L 03/05/21 07:12 Pulse Ox 95 03/05/21 07:12 Body Mass Index 29.5 Const: General: no acute distress, alert and awake Nutritional Appearance: well nourished Orientation/consciousness: patient oriented x3 Resp: Other: breathing comfortably on room air, no shortness of breath GI: Other: soft, nondistended, nontender Neuro: General: patient oriented x3 Extrem: Other: dressings changed to perineal wounds. No active bleeding identified. Tissue is healthy but no granulation noted. Wounds were redressed with silver alginate, non woven gauze and ABD pad. Procedures Date of Service Date of Service: 03/05/21 Progress Note: A&P Assessment and plan (1) Decubital ulcer: Status: Acute Assessment and Plan: 66-year-old male patient with paraplegia and an ischial decubitus ulcer, status post debridement in the OR postoperative day 2. Dressings changed and wounds appear clean but with minimal granulation tissue. Wounds were redressed with silver alginate and dry sterile dressings. No active bleeding noted Currently. patient appears ready for discharge to home if medically clear. He [facility] within the next week for follow-up examination and treatment. Continue the silver alginate and dry sterile dressings on a daily basis. Fall Risk Details Current Medications: Current Medications Acetaminophen (Acetaminophen 325 Mg Tablet) 650 mg PO Q6H PRN PRN Reason: Pain, Mild (Pain Scale 1-3) Last Admin: 03/03/21 14:18 Dose: 650 mg Documented by: Aspirin (Aspirin Enteric Coated 81 Mg Tablet.) 81 mg PO DAILY [facility] Last Admin: 03/04/21 07:46 Dose: 81 mg Documented by: Baclofen (Baclofen 20 Mg Tablet) 40 mg PO BID [facility] Last Admin: 03/04/21 21:27 Dose: 40 mg Documented by: Dextrose (Dextrose 50 % 25 Gm/50 Ml Vial) 25 gm IVPUSH Q15M PRN; Protocol PRN Reason: per Hypoglycemia Standing Ord. Docusate Sodium (Docusate Sodium 100 Mg Capsule) 100 mg PO DAILY PRN PRN Reason: Constipation Docusate Sodium (Docusate Sodium 100 Mg Capsule) 100 mg PO BID [facility] Last Admin: 03/04/21 21:27 Dose: 100 mg Documented by: Gabapentin (Gabapentin 400 Mg Capsule) 800 mg PO BID [facility] Last Admin: 03/04/21 21:27 Dose: 800 mg Documented by: Glucose (Glucose Gel 15 Gm Gel..Gram.) 15 gm PO Q15M PRN; Protocol PRN Reason: per Hypoglycemia Standing Ord. Vancomycin HCl 1,250 mg/ (Sodium Chloride) 250 mls @ 166.667 mls/hr IV Q12H [facility] Last Infusion: 03/04/21 23:06 Dose: Infused Documented by: Piperacillin Sod/Tazobactam (Sod 3.375 gm/ Sodium Chloride) 50 mls @ 100 mls/hr IV Q6H [facility] Last Infusion: 03/05/21 06:27 Dose: Infused Documented by: Insulin Glargine (Insulin Glargine,Hum.Rec.Anlog 100 Unit/Ml 10 Ml Vial) 20 unit SUBCUT BEDTIME [facility] Last Admin: 03/04/21 21:30 Dose: 20 unit Documented by: Insulin Human Lispro (Insulin Lispro 100 Unit/Ml 3 Ml Vial) 0 unit SUBCUT QIDACHS [facility]; Protocol Last Admin: 03/04/21 21:29 Dose: 2 unit Documented by: Lisinopril (Lisinopril 5 Mg Tablet) 5 mg PO DAILY [facility]; Protocol Last Admin: 03/04/21 07:46 Dose: 5 mg Documented by: Ondansetron HCl (Ondansetron Hcl 4 Mg/2 Ml Vial) 4 mg IVPUSH Q8H PRN PRN Reason: Nausea and Vomiting Pharmacy Consult (Consult Rx Vancomycin Dosing) 1 each MISCELLANE DAILY PRN PRN Reason: Consult order Pharmacy Consult (Consult Rx Vancomycin Dosing) 1 each MISCELLANE DAILY PRN PRN Reason: Consult order Polyethylene Glycol (Polyethylene Glycol 3350 17 Gm Powd.Pack) 17 gm PO DAILY [facility] Last Admin: 03/04/21 07:51 Dose: 17 gm Documented by: Sodium Chloride (0.9 % Sodium Chloride Flush 3 Ml Syringe) 3 ml IVFLUSH QSHIFT [facility] Last Admin: 03/05/21 00:51 Dose: 3 ml Documented by: Time Spent With Patient Time: Total time spent is greater than 50% in coordination of care (as documented) at patient's floor/unit and/or counseling patient: Time with patient: 15 - 24 minutes Quality Stroke Does the patient have a stroke diagnosis?: No VTE Prior VTE?: No VTE Risk Level:: Medical - moderate - high VTE Device Contraindication: N/A - Device Ordered VTE Drug Contraindication: Treatment Not Tolerated
--- NOTE | 2021-03-05 08:09 | HO.POSTANES ---
Post Anesthesia Evaluation Post Anesthesia Evaluation Vital Signs: Vital Signs Temp Pulse Resp BP Pulse Ox 03/05/21 07:12 98 F 79 16 103/55 L 95 03/05/21 03:41 98.4 F 84 16 100/59 L 96 03/04/21 23:46 98.6 F 82 16 100/55 L 95 Anesthesia: General Mental Status: Awake Pain Control: Satisfactory Nausea/Vomiting: None Hydration: Adequate Anesthesia-Related Issues: No Anes. Related Issues
[2021-03-05] MEDS: Insulin Lispro 100 UNIT/ML 3 ML VIAL SUBCUT ×4 (08:17→20:27)
[2021-03-05] MEDS: polyethylene glycoL 3350 17 GM POWD.PACK PO (08:17)
[2021-03-05] MEDS: Docusate Sodium 100 MG CAPSULE PO ×2 (08:17→20:28)
[2021-03-05] MEDS: Gabapentin 400 MG CAPSULE 800 MG PO ×2 (08:17→20:27)
[2021-03-05] MEDS: Aspirin Enteric Coated 81 MG TABLET.DR PO (08:18)
[2021-03-05] MEDS: vancomycin HCL 1,250 MG in 0.9 % Sodium Chloride 250 ML 166.66 MG IV (08:18)
[2021-03-05] MEDS: lisinopriL 5 MG TABLET PO (08:18)
[2021-03-05] MEDS: Baclofen 20 MG TABLET 40 MG PO ×2 (08:18→20:28)
[2021-03-05 11:28] VITALS: BP 105/58; PULSE 68; RESP 20; TEMP 36.7; O2SAT 95
[2021-03-05 11:39] LABS: Glucose, Whole Blood 260 mg/dL (60-115)
--- NOTE | 2021-03-05 13:43 | HO.PM.IMPN ---
Subjective Subjective Date of Service: 03/05/21 Interval History: decubitii-s/p dissection yesterday Review of Systems still has pain in decubtiii area Denies any new complaint of chest pain or shortness of breath or abdominal pain or fever or chills or nausea or vomiting Denies any cough Physical Exam Vital Signs: Vital Signs: Last Vital Signs Temp 98.1 F 03/05/21 11:28 Pulse 68 03/05/21 11:28 Resp 20 03/05/21 11:28 BP 105/58 L 03/05/21 11:28 Pulse Ox 95 03/05/21 11:28 Body Mass Index 29.5 Appearance: Alert.? Oriented X3.? Eyes: Pupils equal, round and reactive to light.? Sclera nonicteric.? cvs: [id number], [id number] , no murmur res: clear to auscultation ,no rhonchii or wheezing abd: no rebound or guarding ,nt, bs present. skin:??Left ischial decubitus ulcer located at the junction of the buttock and medial posterior thigh-s/p dissection-still has some bloody soaking also. ext pulses present , no cyanosis ,Gait well balanced well coordinated. neuro: axo3 , nonfocal. Objective Data Active Medications Acetaminophen (Acetaminophen 325 Mg Tablet) 650 mg PO Q6H PRN PRN Reason: Pain, Mild (Pain Scale 1-3) Last Admin: 03/03/21 14:18 Dose: 650 mg Documented by: SHAILA Aspirin (Aspirin Enteric Coated 81 Mg Tablet.) 81 mg PO DAILY [facility] Last Admin: 03/05/21 08:18 Dose: 81 mg Documented by: SWATI Baclofen (Baclofen 20 Mg Tablet) 40 mg PO BID [facility] Last Admin: 03/05/21 08:18 Dose: 40 mg Documented by: SWATI Dextrose (Dextrose 50 % 25 Gm/50 Ml Vial) 25 gm IVPUSH Q15M PRN; Protocol PRN Reason: per Hypoglycemia Standing Ord. Docusate Sodium (Docusate Sodium 100 Mg Capsule) 100 mg PO DAILY PRN PRN Reason: Constipation Docusate Sodium (Docusate Sodium 100 Mg Capsule) 100 mg PO BID [facility] Last Admin: 03/05/21 08:17 Dose: 100 mg Documented by: SWATI Gabapentin (Gabapentin 400 Mg Capsule) 800 mg PO BID [facility] Last Admin: 03/05/21 08:17 Dose: 800 mg Documented by: SWATI Glucose (Glucose Gel 15 Gm Gel..Gram.) 15 gm PO Q15M PRN; Protocol PRN Reason: per Hypoglycemia Standing Ord. Vancomycin HCl 1,250 mg/ (Sodium Chloride) 250 mls @ 166.667 mls/hr IV Q12H [facility] Last Infusion: 03/05/21 10:23 Dose: 0 mls/hr Documented by: SWATI Piperacillin Sod/Tazobactam (Sod 3.375 gm/ Sodium Chloride) 50 mls @ 100 mls/hr IV Q6H [facility] Last Infusion: 03/05/21 13:29 Dose: 0 mls/hr Documented by: SWATI Insulin Glargine (Insulin Glargine,Hum.Rec.Anlog 100 Unit/Ml 10 Ml Vial) 20 unit SUBCUT BEDTIME [facility] Last Admin: 03/04/21 21:30 Dose: 20 unit Documented by: DAISY Insulin Human Lispro (Insulin Lispro 100 Unit/Ml 3 Ml Vial) 0 unit SUBCUT QIDACHS [facility]; Protocol Last Admin: 03/05/21 12:04 Dose: 6 unit Documented by: SWATI Lisinopril (Lisinopril 5 Mg Tablet) 5 mg PO DAILY [facility]; Protocol Last Admin: 03/05/21 08:18 Dose: 5 mg Documented by: SWATI Ondansetron HCl (Ondansetron Hcl 4 Mg/2 Ml Vial) 4 mg IVPUSH Q8H PRN PRN Reason: Nausea and Vomiting Pharmacy Consult (Consult Rx Vancomycin Dosing) 1 each MISCELLANE DAILY PRN PRN Reason: Consult order Pharmacy Consult (Consult Rx Vancomycin Dosing) 1 each MISCELLANE DAILY PRN PRN Reason: Consult order Polyethylene Glycol (Polyethylene Glycol 3350 17 Gm Powd.Pack) 17 gm PO DAILY [facility] Last Admin: 03/05/21 08:17 Dose: 17 gm Documented by: SWATI Sodium Chloride (0.9 % Sodium Chloride Flush 3 Ml Syringe) 3 ml IVFLUSH QSHIFT [facility] Last Admin: 03/05/21 08:17 Dose: 3 ml Documented by: SWATI Labs CBC & Chem 7: 03/05/21 05:24 03/05/21 05:24 Labs: Laboratory Results - last 24 hr 03/04/21 03/04/21 03/05/21 16:30 20:22 05:24 Estim Creat Clear Calc 105.2 Estimated GFR > 60 POC Glucose 168 H 193 H 03/05/21 03/05/21 07:11 11:27 Estim Creat Clear Calc Estimated GFR POC Glucose 167 H 260 H Microbiology Microbiology Results: Microbiology 03/03/21 Unknown Gram Stain - Final Thigh Left Routine Culture - Preliminary Culture in progress. 03/02/21 16:45 Blood Culture - Preliminary Blood - Venous No growth after 48 hours. 03/02/21 16:45 Blood Culture - Preliminary Blood - Venous No growth after 48 hours. Assessment and Plan (1) Decubital ulcer: Status: Acute Assessment and Plan: 66-year-old male who is paraplegic presents to the hospital with a new nonhealing wound 1. decubitus ulcer of right ischial tuberosity - appears infected with malodorous discolored discharge status post dissection yesterday. continue vanco and zosyn? day 3. vanco trough-11.7 yesterday Monitor Vanco trough, renal function electrolytes, follow culture General surgery and wound care following 2.UTI - patient has chronic catheter - positive nitrites, leukocyte Estrace and WBC - will be treated with IV antibiotics for above - follow culture 3. hypertension - stable - continue home medication 4.history of PE - hold Eliquis in anticipation of possible surgical intervention 5.diabetes: fs 170-220. - hold metformin - continue insulin, adjusted lantus - will add low-dose sliding since - diabetic diet Quality Stroke Does the patient have a stroke diagnosis?: No VTE Prior VTE?: No VTE Risk Level:: Medical - moderate - high VTE Device Contraindication: N/A - Device Ordered VTE Drug Contraindication: Treatment Not Tolerated
[2021-03-05 16:00] VITALS: BP 102/56; PULSE 75; RESP 16; TEMP 36.7; O2SAT 96
[2021-03-05 16:47] LABS: Glucose, Whole Blood 159 mg/dL (60-115)
[2021-03-05 19:33] LABS: Vancomycin Trough 18.6 mcg/mL (10.0-20.0)
[2021-03-05 19:42] VITALS: BP 122/60; PULSE 80; RESP 16; TEMP 37.1; O2SAT 97
--- NOTE | 2021-03-05 19:58 | HE.PHANOTE ---
VANCO DOSING BASED ON NEW TROUGH OF 18.6 DOSE CHANGED TO 1250 Q 24. PREVIOUS AUC WAS HIGH. NEW PREDICTED TROUGH OF 12MG/L
[2021-03-05 20:24] LABS: Glucose, Whole Blood 205 mg/dL (60-115)
[2021-03-05] MEDS: Insulin Glargine,Hum.rec.anlog 100 UNIT/ML 10 ML VIAL 25 UNIT SUBCUT (20:26)
[2021-03-05 23:11] VITALS: BP 100/52; PULSE 77; RESP 18; TEMP 37.1; O2SAT 95
[2021-03-06 04:00] VITALS: BP 116/60; PULSE 74; RESP 17; TEMP 36.1; O2SAT 97
[2021-03-06 05:30] LABS: Hematocrit 25.7 % (42-52); Hemoglobin 7.9 g/dl (14.0-18.0)
[2021-03-06] MEDS: Piperacillin Sodium/Tazobactam 3.375 GM in 0.9 % Sodium Chloride 50 ML IV ×4 (05:49→23:29)
[2021-03-06 05:50] LABS: Creatinine Clr Calc Pharmacy 114.2; Estimated Glomerular Filt Rate > 60
[2021-03-06 07:12] VITALS: BP 105/53; PULSE 76; RESP 18; TEMP 36.9; O2SAT 95
[2021-03-06 07:46] LABS: Glucose, Whole Blood 141 mg/dL (60-115)
--- NOTE | 2021-03-06 07:51 | PM.PNGS ---
Subjective Subjective Date of Service: 03/06/21 Patient reports: no new complaints Physical Exam Vital Signs: Vital Signs: Last Vital Signs Temp 98.4 F 03/06/21 07:12 Pulse 76 03/06/21 07:12 Resp 18 03/06/21 07:12 BP 105/53 L 03/06/21 07:12 Pulse Ox 95 03/06/21 07:12 Body Mass Index 29.5 Const: General: cooperative, comfortable and no acute distress Nutritional Appearance: well nourished Orientation/consciousness: patient oriented x3 Resp: Effort & Inspection: normal respiratory effort Back/Spine/Pelvis: Other: dressings intact; silver alginate in place. No erythema in the surrounding skin. No bone noted at the wound base. Neuro: Other: paraplegia; General: patient oriented x3 Procedures Date of Service Date of Service: 03/06/21 Progress Note: A&P Assessment and plan (1) Decubital ulcer: Status: Acute Assessment and Plan: ?66-year-old male patient with paraplegia and an ischial decubitus ulcer, status post debridement in the OR postoperative day 2.? Wounds are clean with minimal granulation tissue and no surrounding erythema.Continue silver alginate and dry sterile dressings.? Antibiotics per Dr. Shirley. Follow up with wound care center upon discharge. Fall Risk Details Current Medications: Current Medications Acetaminophen (Acetaminophen 325 Mg Tablet) 650 mg PO Q6H PRN PRN Reason: Pain, Mild (Pain Scale 1-3) Last Admin: 03/03/21 14:18 Dose: 650 mg Documented by: Aspirin (Aspirin Enteric Coated 81 Mg Tablet.) 81 mg PO DAILY [facility] Last Admin: 03/05/21 08:18 Dose: 81 mg Documented by: Baclofen (Baclofen 20 Mg Tablet) 40 mg PO BID [facility] Last Admin: 03/05/21 20:28 Dose: 40 mg Documented by: Dextrose (Dextrose 50 % 25 Gm/50 Ml Vial) 25 gm IVPUSH Q15M PRN; Protocol PRN Reason: per Hypoglycemia Standing Ord. Docusate Sodium (Docusate Sodium 100 Mg Capsule) 100 mg PO DAILY PRN PRN Reason: Constipation Docusate Sodium (Docusate Sodium 100 Mg Capsule) 100 mg PO BID [facility] Last Admin: 03/05/21 20:28 Dose: 100 mg Documented by: Gabapentin (Gabapentin 400 Mg Capsule) 800 mg PO BID [facility] Last Admin: 03/05/21 20:27 Dose: 800 mg Documented by: Glucose (Glucose Gel 15 Gm Gel..Gram.) 15 gm PO Q15M PRN; Protocol PRN Reason: per Hypoglycemia Standing Ord. Piperacillin Sod/Tazobactam (Sod 3.375 gm/ Sodium Chloride) 50 mls @ 100 mls/hr IV Q6H [facility] Last Infusion: 03/06/21 06:23 Dose: Infused Documented by: Vancomycin HCl 1,500 mg/ (Sodium Chloride) 500 mls @ 333.333 mls/hr IV Q24H [facility] Insulin Glargine (Insulin Glargine,Hum.Rec.Anlog 100 Unit/Ml 10 Ml Vial) 25 unit SUBCUT BEDTIME [facility] Last Admin: 03/05/21 20:26 Dose: 25 unit Documented by: Insulin Human Lispro (Insulin Lispro 100 Unit/Ml 3 Ml Vial) 0 unit SUBCUT QIDACHS [facility]; Protocol Last Admin: 03/05/21 20:27 Dose: 4 unit Documented by: Lisinopril (Lisinopril 5 Mg Tablet) 5 mg PO DAILY [facility]; Protocol Last Admin: 03/05/21 08:18 Dose: 5 mg Documented by: Ondansetron HCl (Ondansetron Hcl 4 Mg/2 Ml Vial) 4 mg IVPUSH Q8H PRN PRN Reason: Nausea and Vomiting Pharmacy Consult (Consult Rx Vancomycin Dosing) 1 each MISCELLANE DAILY PRN PRN Reason: Consult order Pharmacy Consult (Consult Rx Vancomycin Dosing) 1 each MISCELLANE DAILY PRN PRN Reason: Consult order Polyethylene Glycol (Polyethylene Glycol 3350 17 Gm Powd.Pack) 17 gm PO DAILY [facility] Last Admin: 03/05/21 08:17 Dose: 17 gm Documented by: Sodium Chloride (0.9 % Sodium Chloride Flush 3 Ml Syringe) 3 ml IVFLUSH QSHIFT [facility] Last Admin: 03/05/21 23:29 Dose: 3 ml Documented by: Time Spent With Patient Time: Total time spent is greater than 50% in coordination of care (as documented) at patient's floor/unit and/or counseling patient: Time with patient: 15 - 24 minutes Quality Stroke Does the patient have a stroke diagnosis?: No VTE Prior VTE?: No VTE Risk Level:: Medical - moderate - high VTE Device Contraindication: N/A - Device Ordered VTE Drug Contraindication: Treatment Not Tolerated
[2021-03-06] MEDS: Aspirin Enteric Coated 81 MG TABLET.DR PO (09:07)
[2021-03-06] MEDS: Gabapentin 400 MG CAPSULE 800 MG PO ×2 (09:07→21:10)
[2021-03-06] MEDS: Docusate Sodium 100 MG CAPSULE PO (09:07)
[2021-03-06] MEDS: Baclofen 20 MG TABLET 40 MG PO ×2 (09:07→21:10)
[2021-03-06] MEDS: lisinopriL 5 MG TABLET PO (09:08)
[2021-03-06] MEDS: vancomycin HCL 1,500 MG in 0.9 % Sodium Chloride 500 ML 333.33 MG IV (09:08)
[2021-03-06] MEDS: 0.9 % Sodium Chloride Flush 3 ML SYRINGE IVFLUSH ×2 (09:08→21:12)
[2021-03-06 11:24] VITALS: BP 111/65; PULSE 76; RESP 18; TEMP 36.6; O2SAT 97
[2021-03-06 11:31] LABS: Glucose, Whole Blood 252 mg/dL (60-115)
--- NOTE | 2021-03-06 11:47 | P.PNIM_ITS ---
Subjective Subjective Date of Service: 03/06/21 Interval History: Decubitus ulcer Review of Systems Pain improving, Denies any new complaint of chest pain or shortness of breath or abdominal pain or fever or chills or nausea or vomiting Denies any cough Denies any weakness or numbness. Physical Exam Vital Signs: Vital Signs: Last Vital Signs Temp 97.9 F 03/06/21 11:24 Pulse 76 03/06/21 11:24 Resp 18 03/06/21 11:24 BP 111/65 03/06/21 11:24 Pulse Ox 97 03/06/21 11:24 Body Mass Index 29.5 ? Appearance: Alert.? Oriented X3.? Eyes: Pupils equal, round and reactive to light.? Sclera nonicteric.? cvs: rrr, [id number] , no murmur res: clear to auscultation ,no rhonchii or wheezing abd: no rebound or guarding ,nt, bs present. skin:??Left ischial decubitus ulcer located at the junction of the buttock and medial posterior thigh-s/p dissection-still has some bloody soaking also. ext pulses present , no cyanosis ,Gait well balanced well coordinated. neuro: axo3 , nonfocal. Objective Data Active Medications Acetaminophen (Acetaminophen 325 Mg Tablet) 650 mg PO Q6H PRN PRN Reason: Pain, Mild (Pain Scale 1-3) Last Admin: 03/03/21 14:18 Dose: 650 mg Documented by: SHAILA Aspirin (Aspirin Enteric Coated 81 Mg Tablet.) 81 mg PO DAILY [facility] Last Admin: 03/06/21 09:07 Dose: 81 mg Documented by: SWATI Baclofen (Baclofen 20 Mg Tablet) 40 mg PO BID [facility] Last Admin: 03/06/21 09:07 Dose: 40 mg Documented by: SWATI Dextrose (Dextrose 50 % 25 Gm/50 Ml Vial) 25 gm IVPUSH Q15M PRN; Protocol PRN Reason: per Hypoglycemia Standing Ord. Docusate Sodium (Docusate Sodium 100 Mg Capsule) 100 mg PO DAILY PRN PRN Reason: Constipation Docusate Sodium (Docusate Sodium 100 Mg Capsule) 100 mg PO BID [facility] Last Admin: 03/06/21 09:07 Dose: 100 mg Documented by: SWATI Gabapentin (Gabapentin 400 Mg Capsule) 800 mg PO BID [facility] Last Admin: 03/06/21 09:07 Dose: 800 mg Documented by: SWATI Glucose (Glucose Gel 15 Gm Gel..Gram.) 15 gm PO Q15M PRN; Protocol PRN Reason: per Hypoglycemia Standing Ord. Piperacillin Sod/Tazobactam (Sod 3.375 gm/ Sodium Chloride) 50 mls @ 100 mls/hr IV Q6H [facility] Last Infusion: 03/06/21 06:23 Dose: 0 mls/hr Documented by: SUZETTE Vancomycin HCl 1,500 mg/ (Sodium Chloride) 500 mls @ 333.333 mls/hr IV Q24H [facility] Last Infusion: 03/06/21 10:43 Dose: 0 mls/hr Documented by: SWATI Insulin Glargine (Insulin Glargine,Hum.Rec.Anlog 100 Unit/Ml 10 Ml Vial) 25 unit SUBCUT BEDTIME [facility] Last Admin: 03/05/21 20:26 Dose: 25 unit Documented by: SUZETTE Insulin Human Lispro (Insulin Lispro 100 Unit/Ml 3 Ml Vial) 0 unit SUBCUT QIDACHS [facility]; Protocol Last Admin: 03/06/21 08:26 Dose: Not Given Documented by: SWATI Non-Admin Reason: No Insulin Coverage Lisinopril (Lisinopril 5 Mg Tablet) 5 mg PO DAILY [facility]; Protocol Last Admin: 03/06/21 09:08 Dose: 5 mg Documented by: SWATI Ondansetron HCl (Ondansetron Hcl 4 Mg/2 Ml Vial) 4 mg IVPUSH Q8H PRN PRN Reason: Nausea and Vomiting Pharmacy Consult (Consult Rx Vancomycin Dosing) 1 each MISCELLANE DAILY PRN PRN Reason: Consult order Pharmacy Consult (Consult Rx Vancomycin Dosing) 1 each MISCELLANE DAILY PRN PRN Reason: Consult order Polyethylene Glycol (Polyethylene Glycol 3350 17 Gm Powd.Pack) 17 gm PO DAILY [facility] Last Admin: 03/06/21 09:09 Dose: Not Given Documented by: SWATI Non-Admin Reason: loose stools Sodium Chloride (0.9 % Sodium Chloride Flush 3 Ml Syringe) 3 ml IVFLUSH QSHIFT [facility] Last Admin: 03/06/21 09:08 Dose: 3 ml Documented by: SWATI Labs CBC & Chem 7: 03/06/21 05:14 03/06/21 05:14 Labs: Laboratory Results - last 24 hr 03/05/21 03/05/21 03/05/21 16:42 18:55 20:11 Estim Creat Clear Calc Estimated GFR POC Glucose 159 H 205 H Vancomycin Trough 18.6 03/06/21 03/06/21 03/06/21 05:14 07:10 11:22 Estim Creat Clear Calc 114.2 Estimated GFR > 60 POC Glucose 141 H 252 H Vancomycin Trough Microbiology Microbiology Results: Microbiology 03/03/21 Unknown Gram Stain - Final Thigh Left Routine Culture - Preliminary Staphylococcus species Assessment and Plan (1) Decubital ulcer: Status: Acute Assessment and Plan: 66-year-old male who is paraplegic presents to the hospital with a new nonh ealing wound 1. decubitus ulcer of right ischial tuberosity appears infected with malodorous discolored discharge status post dissection yesterday. vanco trough-18.6 on 03/05 continue vanco and zosyn? day 4. Monitor Vanco trough, renal function electrolytes, follow culture General surgery and wound care following 2.UTI- patient has chronic catheter - positive nitrites, leukocyte Estrace and WBC - will be treated with IV antibiotics for above - follow culture 3. hypertension - stable - continue home medication 4.history of PE - hold Eliquis in anticipation of possible surgical intervention 5.diabetes: fs 190-220. - hold metformin - continue insulin, adjusted lantus - will add low-dose Quality Stroke Does the patient have a stroke diagnosis?: No VTE Prior VTE?: No VTE Risk Level:: Medical - moderate - high VTE Device Contraindication: N/A - Device Ordered VTE Drug Contraindication: Treatment Not Tolerated
[2021-03-06] MEDS: Insulin Lispro 100 UNIT/ML 3 ML VIAL SUBCUT ×3 (12:06→21:11)
--- NOTE | 2021-03-06 12:54 | MHC.CLN ---
F/U APPEARS TO BE EATING WELL. DIET=DIABETIC 2200 KCAL, ENSURE MAX PROTEIN BID. CONTINUE TO FOLLOW.
[2021-03-06 15:11] VITALS: BP 114/53; PULSE 72; RESP 16; TEMP 36.6; O2SAT 97
--- NOTE | 2021-03-06 16:17 | MHC.CM.PN ---
PER HOSPITALIST ROUNDS, PLAN WAS TO AWAIT CULTURE RESULTS, MRI RESULTS AND DEVELOP A PLAN OF CARE. CASE MANAGEMENT CONTINUING TO FOLLOW FOR DC NEEDS.
[2021-03-06 18:21] VITALS: BP 116/64; PULSE 86; RESP 17; TEMP 36.9; O2SAT 96
[2021-03-06 18:39] LABS: Glucose, Whole Blood 168 mg/dL (60-115)
[2021-03-06 20:01] LABS: Glucose, Whole Blood 242 mg/dL (60-115)
[2021-03-06] MEDS: Insulin Glargine,Hum.rec.anlog 100 UNIT/ML 10 ML VIAL 30 UNIT SUBCUT (21:11)
[2021-03-07] VITALS (13 sets, daily range): BP systolic 100–134; BP diastolic 46–68; PULSE 65–77; RESP 16–20; TEMP 36.4–36.8; O2SAT 96–98
[2021-03-07] MEDS: Piperacillin Sodium/Tazobactam 3.375 GM in 0.9 % Sodium Chloride 50 ML IV ×3 (05:35→17:34)
[2021-03-07 07:19] LABS: Creatinine Clr Calc Pharmacy 106.4; Estimated Glomerular Filt Rate > 60
[2021-03-07 07:26] LABS: Vancomycin Trough 12.1 mcg/mL (10.0-20.0)
[2021-03-07 07:37] LABS: Glucose, Whole Blood 223 mg/dL (60-115)
--- NOTE | 2021-03-07 07:49 | HE.PHANOTE ---
VANCOMYCIN DOSING CHANGE NEW TROUGH OF 12.1. BASED ON THIS CHANGED TO 1000MG Q12H. NEW PREDICTED AUC OF 467 WITH PREDICTED TROUGH 15.7 AND TOX OF 11%. NEXT TROUGH 03/08 @ 1900
[2021-03-07] MEDS: vancomycin HCL 1,000 MG in 0.9 % Sodium Chloride 250 ML 270 MG IV (08:09)
[2021-03-07] MEDS: Baclofen 20 MG TABLET 40 MG PO ×2 (08:10→21:09)
[2021-03-07] MEDS: Insulin Lispro 100 UNIT/ML 3 ML VIAL SUBCUT ×4 (08:10→21:10)
[2021-03-07] MEDS: Gabapentin 400 MG CAPSULE 800 MG PO ×2 (08:10→21:09)
[2021-03-07] MEDS: Lactated Ringers 1,000 ML 80 ML IVCONT ×2 (08:10→20:13)
[2021-03-07 08:14] LABS: Hematocrit 26.1 % (42-52); Hemoglobin 7.8 g/dl (14.0-18.0)
[2021-03-07] MEDS: 0.9 % Sodium Chloride Flush 3 ML SYRINGE IVFLUSH ×3 (08:14→21:09)
[2021-03-07] MEDS: Acetaminophen 325 MG TABLET 650 MG PO ×3 (08:35→17:57)
[2021-03-07 08:36] LABS: Vancomycin Trough 12.3 mcg/mL (10.0-20.0)
--- NOTE | 2021-03-07 09:13 | P.PNIM_ITS ---
Subjective Subjective Date of Service: 03/07/21 Interval History: anemia , buttock decubtiii Review of Systems has buttock area pain -seems improving Denies any new complaint of chest pain or shortness of breath or abdominal pain or fever or chills or nausea or vomiting Denies any cough Denies any weakness or numbness. Physical Exam Vital Signs: Vital Signs: Last Vital Signs Temp 97.8 F 03/07/21 03:18 Pulse 75 03/07/21 03:18 Resp 16 03/07/21 03:18 BP 100/46 L 03/07/21 03:18 Pulse Ox 98 03/07/21 03:18 Body Mass Index 29.5 Appearance: Alert.? Oriented X3.? Eyes: Pupils equal, round and reactive to light.? Sclera nonicteric.? cvs: rrr, [id number] , no murmur res: clear to auscultation ,no rhonchii or wheezing abd: no rebound or guarding ,nt, bs present. skin:??Left ischial decubitus ulcer located at the junction of the buttock and medial posterior thigh-s/p dissection-mimimum pinkish soaking. ext pulses present , no cyanosis ,Gait well balanced well coordinated. neuro: axo3 , nonfocal. Objective Data Active Medications Acetaminophen (Acetaminophen 325 Mg Tablet) 650 mg PO Q6H PRN PRN Reason: Pain, Mild (Pain Scale 1-3) Last Admin: 03/07/21 08:35 Dose: 650 mg Documented by: WM Apixaban (Apixaban 5 Mg Tablet) 5 mg PO BID [facility] Aspirin (Aspirin Enteric Coated 81 Mg Tablet.) 81 mg PO DAILY [facility] Last Admin: 03/07/21 08:14 Dose: Not Given Documented by: WM Non-Admin Reason: hold per Baclofen (Baclofen 20 Mg Tablet) 40 mg PO BID [facility] Last Admin: 03/07/21 08:10 Dose: 40 mg Documented by: WM Dextrose (Dextrose 50 % 25 Gm/50 Ml Vial) 25 gm IVPUSH Q15M PRN; Protocol PRN Reason: per Hypoglycemia Standing Ord. Docusate Sodium (Docusate Sodium 100 Mg Capsule) 100 mg PO DAILY PRN PRN Reason: Constipation Docusate Sodium (Docusate Sodium 100 Mg Capsule) 100 mg PO BID [facility] Last Admin: 03/07/21 08:14 Dose: Not Given Documented by: WM Non-Admin Reason: loose stools Gabapentin (Gabapentin 400 Mg Capsule) 800 mg PO BID [facility] Last Admin: 03/07/21 08:10 Dose: 800 mg Documented by: WM Glucose (Glucose Gel 15 Gm Gel..Gram.) 15 gm PO Q15M PRN; Protocol PRN Reason: per Hypoglycemia Standing Ord. Piperacillin Sod/Tazobactam (Sod 3.375 gm/ Sodium Chloride) 50 mls @ 100 mls/hr IV Q6H [facility] Last Infusion: 03/07/21 06:31 Dose: 0 mls/hr Documented by: TRACY Lactated Ringer's (Lr) 1,000 mls @ 80 mls/hr IVCONT .[id number] [facility] Last Admin: 03/07/21 08:10 Dose: 80 mls/hr Documented by: WM Vancomycin HCl 1,000 mg/ (Sodium Chloride) 270 mls @ 270 mls/hr IV Q12H [facility] Last Admin: 03/07/21 08:09 Dose: 270 mls/hr Documented by: WM Insulin Glargine (Insulin Glargine,Hum.Rec.Anlog 100 Unit/Ml 10 Ml Vial) 30 unit SUBCUT BEDTIME [facility] Last Admin: 03/06/21 21:11 Dose: 30 unit Documented by: GABBY Insulin Human Lispro (Insulin Lispro 100 Unit/Ml 3 Ml Vial) 0 unit SUBCUT QIDACHS [facility]; Protocol Last Admin: 03/07/21 08:10 Dose: 4 unit Documented by: WM Lisinopril (Lisinopril 5 Mg Tablet) 5 mg PO DAILY [facility]; Protocol Last Admin: 03/07/21 08:14 Dose: Not Given Documented by: WM Non-Admin Reason: hold per Omeprazole (Omeprazole 20 Mg Tavia.) 20 mg PO BID@0630,1630 [facility] Ondansetron HCl (Ondansetron Hcl 4 Mg/2 Ml Vial) 4 mg IVPUSH Q8H PRN PRN Reason: Nausea and Vomiting Pharmacy Consult (Consult Rx Vancomycin Dosing) 1 each MISCELLANE DAILY PRN PRN Reason: Consult order Pharmacy Consult (Consult Rx Vancomycin Dosing) 1 each MISCELLANE DAILY PRN PRN Reason: Consult order Polyethylene Glycol (Polyethylene Glycol 3350 17 Gm Powd.Pack) 17 gm PO DAILY [facility] Last Admin: 03/07/21 08:14 Dose: Not Given Documented by: WM Non-Admin Reason: loose stools Sodium Chloride (0.9 % Sodium Chloride Flush 3 Ml Syringe) 3 ml IVFLUSH QSHIFT [facility] Last Admin: 03/07/21 08:14 Dose: 3 ml Documented by: WM Labs CBC & Chem 7: 03/07/21 07:52 03/07/21 06:55 Labs: Laboratory Results - last 24 hr 03/02/21 03/03/21 03/05/21 16:45 08:03 05:24 Hct 28.8 L 28.5 L 26.1 L Estim Creat Clear Calc Estimated GFR POC Glucose Vancomycin Trough Crossmatch 03/06/21 03/06/21 03/06/21 05:14 11:22 18:25 Hct 25.7 L Estim Creat Clear Calc Estimated GFR POC Glucose 252 H 168 H Vancomycin Trough Crossmatch 03/06/21 03/07/21 03/07/21 19:57 06:55 06:55 Hct Estim Creat Clear Calc 106.4 Estimated GFR > 60 POC Glucose 242 H Vancomycin Trough 12.1 Crossmatch 03/07/21 03/07/21 03/07/21 07:22 07:52 07:52 Hct 26.1 L Estim Creat Clear Calc Estimated GFR POC Glucose 223 H Vancomycin Trough Crossmatch See Detail 03/07/21 07:52 Hct Estim Creat Clear Calc Estimated GFR POC Glucose Vancomycin Trough 12.3 Crossmatch Microbiology Microbiology Results: Microbiology 03/03/21 Unknown Gram Stain - Final Thigh Left Routine Culture - Final Staphylococcus aureus Assessment and Plan (1) Decubital ulcer: Status: Acute (2) NIDDY (non-insulin dependent diabetes mellitus in young): Status: Acute (3) Anemia: Status: Acute Assessment and Plan: 66-year-old male who is paraplegic presents to the hospital with a new nonhealing wound 1. decubitus ulcer of right ischial tuberosity appears infected with malodorous discolored discharge status post dissection yesterday. vanco trough-12.3 today continue vanco and zosyn? day 5. Monitor Vanco trough, renal function electrolytes, blood culture neg@ 48hrs , wound left thigh-mssa. General surgery and wound care following 2.UTI- patient has chronic catheter - positive nitrites, leukocyte Estrace and WBC , urine culture -mixed efrain on antibiotics 3. hypertension - stable - continue home medication 4.history of PE: sats fine , no sob started back eliquis 5.diabetes: uncontrolled - hold metformin adjusted insulinsliding scale , adjusted lantus - will add low-dose 6. hypochromic anemia: post dissection-h/h droped to 7.8 range overlast -h/h 11, slowly trending down , fecal immonchem test neg in 2019 he has cologuard test positive earlier,had colonoscopy-poor prep in 10/03, that time recomended to moniter h/h and repeat FIT h/h trending down , iron profile, b12 and folate , fobt added tranfuse 1 prbc moniter h/h closely , hold asa , added omeprazole Gi eval Quality Stroke Does the patient have a stroke diagnosis?: No VTE Prior VTE?: No VTE Risk Level:: Medical - moderate - high VTE Device Contraindication: N/A - Device Ordered VTE Drug Contraindication: Treatment Not Tolerated
[2021-03-07 09:42] LABS: Iron 18 mcg/dL (45-160); Percent Iron Saturation 7 % (15-50); Total Iron Binding Capacity 253 mcg/dL (228-428); Unsaturated Iron Binding 235 ug/dL
[2021-03-07 11:47] LABS: Glucose, Whole Blood 226 mg/dL (60-115)
[2021-03-07] MEDS: Apixaban 5 MG TABLET PO ×2 (11:54→21:09)
[2021-03-07] MEDS: Omeprazole 20 MG CAPSULE.DR PO ×2 (11:54→16:02)
[2021-03-07 16:29] LABS: Glucose, Whole Blood 156 mg/dL (60-115)
[2021-03-07 20:59] LABS: Glucose, Whole Blood 162 mg/dL (60-115)
[2021-03-07] MEDS: Insulin Glargine,Hum.rec.anlog 100 UNIT/ML 10 ML VIAL 30 UNIT SUBCUT (21:09)
--- NOTE | 2021-03-07 21:32 | PM.IDPN ---
Subjective Subjective Date of Service: 03/06/21 Critical Care Time (minutes): 15 Comment: he has MSSA wound he has no complaints Objective Data Labs CBC & Chem 7: 03/08/21 04:22 03/09/21 05:30 Labs: Laboratory Results - last 24 hr 03/07/21 03/07/21 03/07/21 06:55 06:55 07:22 Hgb Hct Creatinine 0.88 Estim Creat Clear Calc 106.4 Estimated GFR > 60 POC Glucose 223 H Iron 18 L TIBC 253 % Saturation 7 L Unsat Iron Binding 235 Vancomycin Trough 12.1 Blood Type Antibody Screen Crossmatch 03/07/21 03/07/21 03/07/21 07:52 07:52 07:52 Hgb 7.8 L Hct 26.1 L Creatinine Estim Creat Clear Calc Estimated GFR POC Glucose Iron TIBC % Saturation Unsat Iron Binding Vancomycin Trough 12.3 Blood Type O Positive Antibody Screen NEGATIVE Crossmatch See Detail 03/07/21 03/07/21 03/07/21 11:22 16:19 20:41 Hgb Hct Creatinine Estim Creat Clear Calc Estimated GFR POC Glucose 226 H 156 H 162 H Iron TIBC % Saturation Unsat Iron Binding Vancomycin Trough Blood Type Antibody Screen Crossmatch Microbiology Microbiology Results: Microbiology 03/02/21 16:45 Blood - Venous Blood Culture - Final No growth after 5 days. 03/02/21 16:45 Blood - Venous Blood Culture - Final No growth after 5 days. 03/03/21 Unknown Thigh Left Gram Stain - Final 03/03/21 Unknown Thigh Left Routine Culture - Final Staphylococcus aureus 03/02/21 18:01 Urine clean catch - Urine mckeon top Urine Culture - Final Physical Exam Vital Signs: Vital Signs: Last Vital Signs Temp 98.2 F 03/07/21 20:07 Pulse 65 03/07/21 20:07 Resp 18 03/07/21 20:07 BP 123/68 03/07/21 20:07 Pulse Ox 96 03/07/21 19:12 Body Mass Index 29.5 Const: General: cooperative Resp: Effort & Inspection: normal respiratory effort Cardio: Rate: regular rate Rhythm: regular rhythm GI: Palpation (GI): Soft to palpation and nontender Extrem: Other: foot with malodor Assessment and Plan Assessment and plan (1) Decubital ulcer: Status: Acute (2) Decubitus ulcer of right ischial tuberosity region: Problem details: There is no evidence of osteomyelitis He has diabetic foot infection Status: Acute Assessment and Plan: Surgical debridement prn need Augmentin and Doxycycline for 10 days No IV antibiotics care home useful (3) Anemia: Status: Acute (4) NIDDY (non-insulin dependent diabetes mellitus in young): Status: Acute Time Spent With Patient Time: Total time spent is greater than 50% in coordination of care (as documented) at patient's floor/unit and/or counseling patient: Time with patient: 15 - 24 minutes
[2021-03-07] MEDS: Amoxicillin/Potassium Clav 875 MG TABLET PO (22:59)
[2021-03-08 03:32] VITALS: BP 100/57; PULSE 69; RESP 17; TEMP 36.6; O2SAT 97
[2021-03-08] MEDS: Lactated Ringers 1,000 ML 80 ML IVCONT ×2 (04:14→17:00)
[2021-03-08] MEDS: Omeprazole 20 MG CAPSULE.DR PO ×2 (05:14→17:00)
[2021-03-08 05:46] LABS: Hematocrit 29.3 % (42-52); Hemoglobin 9.2 g/dl (14.0-18.0); Mean Corpuscular HGB Conc 31.4 g/dl (31.0-36.0); Mean Corpuscular Hemoglobin 25.4 pg (27.0-33.0); Mean Corpuscular Volume 80.9 fL (80-98); Mean Platelet Volume 8.9 fL (9.4-12.4); Platelet Count 351 X10*3/uL (160-400); Red Blood Count 3.62 X10*6/uL (4.60-5.80); Red Cell Distribution Width 16.4 % (11.0-16.0); White Blood Count 6.1 X10*3/uL (4.8-10.8)
[2021-03-08 06:05] LABS: Anion Gap 10 (12-20); Blood Urea Nitrogen 14 mg/dL (9-16); Calcium 8.8 mg/dL (8.4-10.2); Carbon Dioxide 26 mmol/L (22-29); Chloride 109 mmol/L (96-108); Creatinine Clr Calc Pharmacy 115.6; Estimated Glomerular Filt Rate > 60; Glucose Random 158 mg/dL (60-115); Potassium 3.9 mmol/L (3.3-5.1); Sodium 141 mmol/L (135-145)
[2021-03-08 07:34] LABS: Glucose, Whole Blood 116 mg/dL (60-115)
[2021-03-08 07:46] VITALS: BP 127/74; PULSE 74; RESP 18; TEMP 36.2; O2SAT 98
[2021-03-08] MEDS: Aspirin Enteric Coated 81 MG TABLET.DR PO (09:01)
[2021-03-08] MEDS: Gabapentin 400 MG CAPSULE 800 MG PO ×2 (09:01→22:35)
[2021-03-08 09:02] VITALS: BP 127/74; PULSE 74
[2021-03-08] MEDS: Apixaban 5 MG TABLET PO ×2 (09:02→22:36)
[2021-03-08] MEDS: Baclofen 20 MG TABLET 40 MG PO ×2 (09:02→22:36)
[2021-03-08] MEDS: lisinopriL 5 MG TABLET PO (09:02)
--- NOTE | 2021-03-08 11:06 | HO.PM.IMPN ---
Subjective Subjective Date of Service: 03/08/21 Interval History: anemia , decubtii Review of Systems says pain improved in ulcer area no much discharge has some mucous bm's ? chronic no fever or chills. Physical Exam Vital Signs: Vital Signs: Last Vital Signs Temp 97.2 F 03/08/21 07:46 Pulse 74 03/08/21 09:02 Resp 18 03/08/21 07:46 BP 127/74 03/08/21 09:02 Pulse Ox 98 03/08/21 07:46 Body Mass Index 29.5 ?Alert.? Oriented X3.? Eyes: Pupils equal, round and reactive to light.? Sclera nonicteric.? cvs: rrr, [id number] , no murmur res: clear to auscultation ,no rhonchii or wheezing abd: no rebound or guarding ,nt, bs present. skin:??Left ischial decubitus ulcer located at the junction of the buttock and medial posterior thigh-s/p dissection-no much discharge or erythema . ext pulses present , no cyanosis ,Gait well balanced well coordinated. neuro: axo3 , nonfoca Objective Data Active Medications Acetaminophen (Acetaminophen 325 Mg Tablet) 650 mg PO Q6H PRN PRN Reason: Pain, Mild (Pain Scale 1-3) Last Admin: 03/07/21 17:57 Dose: 650 mg Documented by: PADDY Amoxicillin/Clavulanate Potassium (Amoxicillin/Potassium Clav 875 Mg Tablet) 875 mg PO Q12H [facility] Last Admin: 03/07/21 22:59 Dose: 875 mg Documented by: GABBY Apixaban (Apixaban 5 Mg Tablet) 5 mg PO BID [facility] Last Admin: 03/08/21 09:02 Dose: 5 mg Documented by: WALLACE Aspirin (Aspirin Enteric Coated 81 Mg Tablet.) 81 mg PO DAILY [facility] Last Admin: 03/08/21 09:01 Dose: 81 mg Documented by: WALLACE Baclofen (Baclofen 20 Mg Tablet) 40 mg PO BID [facility] Last Admin: 03/08/21 09:02 Dose: 40 mg Documented by: WALLACE Dextrose (Dextrose 50 % 25 Gm/50 Ml Vial) 25 gm IVPUSH Q15M PRN; Protocol PRN Reason: per Hypoglycemia Standing Ord. Docusate Sodium (Docusate Sodium 100 Mg Capsule) 100 mg PO DAILY PRN PRN Reason: Constipation Docusate Sodium (Docusate Sodium 100 Mg Capsule) 100 mg PO BID [facility] Last Admin: 03/08/21 08:56 Dose: Not Given Documented by: WALLACE Non-Admin Reason: Patient Refused Doxycycline Hyclate (Doxycycline Hyclate 100 Mg Tablet) 100 mg PO Q12H [facility] Last Admin: 03/07/21 23:00 Dose: 100 mg Documented by: GABBY Gabapentin (Gabapentin 400 Mg Capsule) 800 mg PO BID [facility] Last Admin: 03/08/21 09:01 Dose: 800 mg Documented by: WALLACE Glucose (Glucose Gel 15 Gm Gel..Gram.) 15 gm PO Q15M PRN; Protocol PRN Reason: per Hypoglycemia Standing Ord. Lactated Ringer's (Lr) 1,000 mls @ 80 mls/hr IVCONT .[id number] [facility] Last Admin: 03/08/21 04:14 Dose: 80 mls/hr Documented by: GABBY Insulin Glargine (Insulin Glargine,Hum.Rec.Anlog 100 Unit/Ml 10 Ml Vial) 30 unit SUBCUT BEDTIME [facility] Last Admin: 03/07/21 21:09 Dose: 30 unit Documented by: GABBY Insulin Human Lispro (Insulin Lispro 100 Unit/Ml 3 Ml Vial) 0 unit SUBCUT QIDACHS [facility]; Protocol Last Admin: 03/08/21 07:39 Dose: Not Given Documented by: WALLACE Non-Admin Reason: No Insulin Coverage Latanoprost (Latanoprost 0.005 % Ophth Tatianna 2.5 Ml Drops) 1 drop EYE-BOTH BEDTIME [facility] Lisinopril (Lisinopril 5 Mg Tablet) 5 mg PO DAILY [facility]; Protocol Last Admin: 03/08/21 09:02 Dose: 5 mg Documented by: WALLACE Omeprazole (Omeprazole 20 Mg Capsule.) 20 mg PO BID@0630,1630 [facility] Last Admin: 03/08/21 05:14 Dose: 20 mg Documented by: GABBY Ondansetron HCl (Ondansetron Hcl 4 Mg/2 Ml Vial) 4 mg IVPUSH Q8H PRN PRN Reason: Nausea and Vomiting Pharmacy Consult (Consult Rx Vancomycin Dosing) 1 each MISCELLANE DAILY PRN PRN Reason: Consult order Pharmacy Consult (Consult Rx Vancomycin Dosing) 1 each MISCELLANE DAILY PRN PRN Reason: Consult order Polyethylene Glycol (Polyethylene Glycol 3350 17 Gm Powd.Pack) 17 gm PO DAILY [facility] Last Admin: 03/08/21 08:55 Dose: Not Given Documented by: WALLACE Non-Admin Reason: Diarrhea Sodium Chloride (0.9 % Sodium Chloride Flush 3 Ml Syringe) 3 ml IVFLUSH QSHIFT [facility] Last Admin: 03/08/21 07:39 Dose: Not Given Documented by: WALLACE Non-Admin Reason: IV Running Labs CBC & Chem 7: 03/08/21 04:22 03/08/21 04:22 Labs: Laboratory Results - last 24 hr 03/07/21 03/07/21 03/07/21 07:52 11:22 16:19 MCV MCH MCHC RDW Plt Count MPV Absolute Nucleated RBC Nucleated RBC % (auto) Anion Gap Estim Creat Clear Calc Estimated GFR POC Glucose 226 H 156 H Random Glucose Calcium Blood Type O Positive Antibody Screen NEGATIVE Crossmatch See Detail 03/07/21 03/08/21 03/08/21 20:41 04:22 04:22 MCV 80.9 MCH 25.4 L MCHC 31.4 RDW 16.4 H Plt Count 351 MPV 8.9 L Absolute Nucleated RBC 0.000 Nucleated RBC % (auto) 0.0 Anion Gap Estim Creat Clear Calc Cancelled Estimated GFR Cancelled POC Glucose 162 H Random Glucose Calcium Blood Type Antibody Screen Crossmatch 03/08/21 03/08/21 04:22 06:56 MCV MCH MCHC RDW Plt Count MPV Absolute Nucleated RBC Nucleated RBC % (auto) Anion Gap 10 L Estim Creat Clear Calc 115.6 Estimated GFR > 60 POC Glucose 116 H Random Glucose 158 H Calcium 8.8 Blood Type Antibody Screen Crossmatch Microbiology Microbiology Results: Microbiology 03/02/21 16:45 Blood Culture - Final Blood - Venous No growth after 5 days. 03/02/21 16:45 Blood Culture - Final Blood - Venous No growth after 5 days. 03/03/21 Unknown Gram Stain - Final Thigh Left Routine Culture - Final Staphylococcus aureus Assessment and Plan (1) Anemia: Status: Acute (2) Decubital ulcer: Status: Acute Assessment and Plan: 66-year-old male who is paraplegic presents to the hospital with a new nonhealing wound 1. decubitus ulcer of right ischial tuberosity appears infected with malodorous discolored discharge status post dissection yesterday. blood culture neg@ 48hrs , wound left thigh-mssa. 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 switched to po augmentin/doxycycline. General surgery and wound care following 2.UTI- patient has chronic catheter - positive nitrites, leukocyte Estrace and WBC ?, urine culture -mixed efrain ?on antibiotics 3. hypertension - stable - continue home medication 4.history of PE: sats fine , no sob started back eliquis 5.diabetes: uncontrolled - hold metformin adjusted? insulinsliding scale , adjusted lantus - will add low-dose 6. hypochromic anemia: post dissection-decubtii overlast -h/h 11, slowly trending down , fecal immonchem test neg in 2018 he has cologuard test positive earlier,had colonoscopy-poor prep in 10/03, that time recomended to moniter h/h and repeat FIT h/h trending down , iron and iron sats low , tibc normal, iron binding capacity normal , fobt added tranfuse 1 prbc-h/h trended up 9.2 range hold asa , added omeprazole Gi eval Quality Stroke Does the patient have a stroke diagnosis?: No VTE Prior VTE?: No VTE Risk Level:: Medical - moderate - high VTE Device Contraindication: N/A - Device Ordered VTE Drug Contraindication: Treatment Not Tolerated
[2021-03-08 11:56] LABS: Glucose, Whole Blood 141 mg/dL (60-115)
[2021-03-08 11:59] VITALS: BP 132/65; PULSE 65; RESP 18; TEMP 36.7; O2SAT 97
[2021-03-08] MEDS: Amoxicillin/Potassium Clav 875 MG TABLET PO ×2 (12:06→22:36)
[2021-03-08] MEDS: Loperamide HCl 2 MG CAPSULE PO (12:06)
[2021-03-08 15:53] VITALS: BP 126/62; PULSE 59; RESP 19; TEMP 36.7; O2SAT 95
[2021-03-08 16:47] LABS: Glucose, Whole Blood 290 mg/dL (60-115)
[2021-03-08] MEDS: Insulin Lispro 100 UNIT/ML 3 ML VIAL SUBCUT ×2 (17:00→22:36)
[2021-03-08 19:27] VITALS: BP 113/57; PULSE 67; RESP 18; TEMP 37.3; O2SAT 98
--- NOTE | 2021-03-08 19:41 | CONS_ITS ---
DATE OF SERVICE: 03/08/2021 REFERRING PHYSICIAN: Yg Shirley MD REASON FOR CONSULTATION: Anemia. HISTORY OF PRESENT ILLNESS: The patient is a 66-year-old man, seen today in consultation for anemia. He was admitted to the hospital on March 02 because of a decubitus ulcer. He has been noted to be anemic and received 2 units of packed red blood cells and transfusion for a hematocrit of 25.7 on March 07. His hematocrit this morning is 29.3. There has been no reported GI bleeding, and the patient denies any change in his bowel habits, rectal bleeding, or upper GI symptoms. He is on aspirin and takes Eliquis because of a history of blood clots. He does have occasional reflux, which he uses omeprazole on a p.r.n. basis for. He has not had upper endoscopy, but does describe undergoing colonoscopy and available records show he had a screening colonoscopy with removal of a rectal polyp on September 09. PAST MEDICAL HISTORY: 1. Decubitus ulcers. 2. Diabetes. 3. Paraplegic. 4. Hypertension. 5. PE. 6. Osteomyelitis. CURRENT MEDICATIONS: Current medication list is reviewed in the chart. ALLERGIES: MULTIPLE MEDICATION ALLERGIES ARE REVIEWED. FAMILY HISTORY: This is reviewed with the patient and is negative for GI malignancy. SOCIAL HISTORY: He does not smoke or use alcohol. REVIEW OF SYSTEMS: SKIN: No pruritus. HEENT: Negative. CARDIOPULMONARY: He denies shortness of breath or chest pain. GASTROINTESTINAL: As above. GENITOURINARY: Negative. NEUROPSYCHIATRIC: Negative. PHYSICAL EXAMINATION: GENERAL: Shows a pleasant male, sitting comfortably in bed, eating lunch. VITAL SIGNS: Stable. SKIN: Anicteric. HEENT: Shows no scleral icterus. NECK: Without lymphadenopathy or thyromegaly. LUNGS: Clear. HEART: Shows regular rate and rhythm. S1, S2. No murmur. ABDOMEN: Soft without focal masses or tenderness. Bowel sounds are present. No organomegaly is noted. EXTREMITIES: Without edema. LABORATORY DATA: Shows a hematocrit of 29 with an MCV of 80.9. Chemistries show an iron of 18 with a saturation of 7% on March 07. IMPRESSION: Iron-deficiency anemia. At this point, he appears stable without any ongoing GI bleeding, status post 2 units of packed red blood cells for anemia. He is up to date on colorectal cancer screening based on his previous colonoscopy. I would recommend outpatient followup with his established GI provider, at which time, consideration can be given to evaluation of the upper GI tract with endoscopy because of his iron-deficiency anemia. He is on omeprazole, which should cover any gastritis related to his aspirin usage. Thanks for asking me to see him. I will follow him in the hospital with you. MD ERUM Edgar/JOANNA / [phone]
[2021-03-08 21:02] LABS: Glucose, Whole Blood 205 mg/dL (60-115)
--- NOTE | 2021-03-08 21:59 | PM.PNGS ---
Subjective Subjective Date of Service: 03/08/21 Interval history: feels ok Physical Exam Vital Signs: Vital Signs: Last Vital Signs Temp 99.1 F 03/08/21 19:27 Pulse 67 03/08/21 19:27 Resp 18 03/08/21 19:27 BP 113/57 L 03/08/21 19:27 Pulse Ox 98 03/08/21 19:27 Body Mass Index 29.5 Skin: Other: left ischial wound area is large but very clean and healthy appearing. surrounding tissue looks good Procedures Date of Service Date of Service: 03/08/21 Progress Note: A&P Assessment and plan (1) Decubital ulcer: Status: Acute Assessment and Plan: 66 year old male with large decubitus ulcer/wound now debrided in OR and looks very healthy - pt paraplegic. recommend cont with wet to dry dressing but is ready for wound vac now. try to get inhouse placement converted to at home wound vac and then follow up with wound vac care at wound clinic. he is well known there. nutrition team to recommend high protein intake and multi-vitamins for wound healing Fall Risk Details Current Medications: Current Medications Acetaminophen (Acetaminophen 325 Mg Tablet) 650 mg PO Q6H PRN PRN Reason: Pain, Mild (Pain Scale 1-3) Last Admin: 03/07/21 17:57 Dose: 650 mg Documented by: Amoxicillin/Clavulanate Potassium (Amoxicillin/Potassium Clav 875 Mg Tablet) 875 mg PO Q12H [facility] Last Admin: 03/08/21 12:06 Dose: 875 mg Documented by: Apixaban (Apixaban 5 Mg Tablet) 5 mg PO BID [facility] Last Admin: 03/08/21 09:02 Dose: 5 mg Documented by: Aspirin (Aspirin Enteric Coated 81 Mg Tablet.) 81 mg PO DAILY [facility] Last Admin: 03/08/21 09:01 Dose: 81 mg Documented by: Baclofen (Baclofen 20 Mg Tablet) 40 mg PO BID [facility] Last Admin: 03/08/21 09:02 Dose: 40 mg Documented by: Dextrose (Dextrose 50 % 25 Gm/50 Ml Vial) 25 gm IVPUSH Q15M PRN; Protocol PRN Reason: per Hypoglycemia Standing Ord. Docusate Sodium (Docusate Sodium 100 Mg Capsule) 100 mg PO DAILY PRN PRN Reason: Constipation Docusate Sodium (Docusate Sodium 100 Mg Capsule) 100 mg PO BID [facility] Last Admin: 03/08/21 08:56 Dose: Not Given Documented by: Doxycycline Hyclate (Doxycycline Hyclate 100 Mg Tablet) 100 mg PO Q12H [facility] Last Admin: 03/08/21 12:06 Dose: 100 mg Documented by: Gabapentin (Gabapentin 400 Mg Capsule) 800 mg PO BID [facility] Last Admin: 03/08/21 09:01 Dose: 800 mg Documented by: Glucose (Glucose Gel 15 Gm Gel..Gram.) 15 gm PO Q15M PRN; Protocol PRN Reason: per Hypoglycemia Standing Ord. Lactated Ringer's (Lr) 1,000 mls @ 80 mls/hr IVCONT .[id number] [facility] Last Admin: 03/08/21 17:00 Dose: 80 mls/hr Documented by: Insulin Glargine (Insulin Glargine,Hum.Rec.Anlog 100 Unit/Ml 10 Ml Vial) 30 unit SUBCUT BEDTIME [facility] Last Admin: 03/07/21 21:09 Dose: 30 unit Documented by: Insulin Human Lispro (Insulin Lispro 100 Unit/Ml 3 Ml Vial) 0 unit SUBCUT QIDACHS [facility]; Protocol Last Admin: 03/08/21 17:00 Dose: 8 unit Documented by: Latanoprost (Latanoprost 0.005 % Ophth Tatianna 2.5 Ml Drops) 1 drop EYE-BOTH BEDTIME [facility] Lisinopril (Lisinopril 5 Mg Tablet) 5 mg PO DAILY [facility]; Protocol Last Admin: 03/08/21 09:02 Dose: 5 mg Documented by: Omeprazole (Omeprazole 20 Mg Tavia.) 20 mg PO BID@0630,1630 [facility] Last Admin: 03/08/21 17:00 Dose: 20 mg Documented by: Ondansetron HCl (Ondansetron Hcl 4 Mg/2 Ml Vial) 4 mg IVPUSH Q8H PRN PRN Reason: Nausea and Vomiting Pharmacy Consult (Consult Rx Vancomycin Dosing) 1 each MISCELLANE DAILY PRN PRN Reason: Consult order Pharmacy Consult (Consult Rx Vancomycin Dosing) 1 each MISCELLANE DAILY PRN PRN Reason: Consult order Polyethylene Glycol (Polyethylene Glycol 3350 17 Gm Powd.Pack) 17 gm PO DAILY [facility] Last Admin: 03/08/21 08:55 Dose: Not Given Documented by: Sodium Chloride (0.9 % Sodium Chloride Flush 3 Ml Syringe) 3 ml IVFLUSH QSHIFT [facility] Last Admin: 03/08/21 16:53 Dose: Not Given Documented by: Time Spent With Patient Time: Total time spent is greater than 50% in coordination of care (as documented) at patient's floor/unit and/or counseling patient: Time with patient: 15 - 24 minutes Quality Stroke Does the patient have a stroke diagnosis?: No VTE Prior VTE?: No VTE Risk Level:: Medical - moderate - high VTE Device Contraindication: N/A - Device Ordered VTE Drug Contraindication: Treatment Not Tolerated
[2021-03-08] MEDS: Docusate Sodium 100 MG CAPSULE PO (22:36)
[2021-03-08] MEDS: Insulin Glargine,Hum.rec.anlog 100 UNIT/ML 10 ML VIAL 30 UNIT SUBCUT (22:38)
[2021-03-09] VITALS: BP 135/74; PULSE 75; RESP 18; TEMP 36.8; O2SAT 99
[2021-03-09 04:00] VITALS: RESP 16
[2021-03-09] MEDS: Lactated Ringers 1,000 ML 80 ML IVCONT (04:55)
[2021-03-09] MEDS: Omeprazole 20 MG CAPSULE.DR PO (05:52)
[2021-03-09 06:39] LABS: Creatinine Clr Calc Pharmacy 112.8; Estimated Glomerular Filt Rate > 60
[2021-03-09 07:04] VITALS: BP 112/59; PULSE 69; RESP 18; TEMP 36.6; O2SAT 98
[2021-03-09 07:55] LABS: Glucose, Whole Blood 138 mg/dL (60-115)
--- NOTE | 2021-03-09 08:26 | PM.PNGS ---
Subjective Subjective Date of Service: 03/09/21 Interval history: Patient with no new complaints. Dressings changed to wet-to-dry over the weekend. Physical Exam Vital Signs: Vital Signs: Last Vital Signs Temp 97.9 F 03/09/21 07:04 Pulse 69 03/09/21 07:04 Resp 18 03/09/21 07:04 BP 112/59 L 03/09/21 07:04 Pulse Ox 98 03/09/21 07:04 Body Mass Index 29.5 Const: General: comfortable and no acute distress Nutritional Appearance: well nourished Orientation/consciousness: patient oriented x3 Limitations: no limitations Back/Spine/Pelvis: Other: Left ischial decubitus ulcer dressings changed. Good granulation tissue noted now. No foul discharge. Surrounding skin is clean without erythema. Wet to dry dressings applied. Neuro: General: patient oriented x3 Extrem: Other: No edema Procedures Date of Service Date of Service: 03/09/21 Progress Note: A&P Assessment and plan (1) Decubitus ulcer of right ischial tuberosity region: Status: Acute Assessment and Plan: 66-year-old male patient with diabetes, paraplegia with a pressure ulcer of the ischial tuberosity, status post debridement last week. Wounds are clean with evidence of excellent granulation tissue at the base. Surrounding skin is clean and without erythema. Wet to dry dressings applied. No exposed bone. No foul discharge. Continue local wound care. [facility] VAC placement. Fall Risk Details Current Medications: Current Medications Acetaminophen (Acetaminophen 325 Mg Tablet) 650 mg PO Q6H PRN PRN Reason: Pain, Mild (Pain Scale 1-3) Last Admin: 03/07/21 17:57 Dose: 650 mg Documented by: Amoxicillin/Clavulanate Potassium (Amoxicillin/Potassium Clav 875 Mg Tablet) 875 mg PO Q12H [facility] Last Admin: 03/08/21 22:36 Dose: 875 mg Documented by: Apixaban (Apixaban 5 Mg Tablet) 5 mg PO BID [facility] Last Admin: 03/08/21 22:36 Dose: 5 mg Documented by: Aspirin (Aspirin Enteric Coated 81 Mg Tablet.) 81 mg PO DAILY [facility] Last Admin: 03/08/21 09:01 Dose: 81 mg Documented by: Baclofen (Baclofen 20 Mg Tablet) 40 mg PO BID [facility] Last Admin: 03/08/21 22:36 Dose: 40 mg Documented by: Dextrose (Dextrose 50 % 25 Gm/50 Ml Vial) 25 gm IVPUSH Q15M PRN; Protocol PRN Reason: per Hypoglycemia Standing Ord. Docusate Sodium (Docusate Sodium 100 Mg Capsule) 100 mg PO DAILY PRN PRN Reason: Constipation Docusate Sodium (Docusate Sodium 100 Mg Capsule) 100 mg PO BID [facility] Last Admin: 03/08/21 22:36 Dose: 100 mg Documented by: Doxycycline Hyclate (Doxycycline Hyclate 100 Mg Tablet) 100 mg PO Q12H [facility] Last Admin: 03/08/21 22:36 Dose: 100 mg Documented by: Gabapentin (Gabapentin 400 Mg Capsule) 800 mg PO BID [facility] Last Admin: 03/08/21 22:35 Dose: 800 mg Documented by: Glucose (Glucose Gel 15 Gm Gel..Gram.) 15 gm PO Q15M PRN; Protocol PRN Reason: per Hypoglycemia Standing Ord. Lactated Ringer's (Lr) 1,000 mls @ 80 mls/hr IVCONT .[id number] [facility] Last Admin: 03/09/21 04:55 Dose: 80 mls/hr Documented by: Insulin Glargine (Insulin Glargine,Hum.Rec.Anlog 100 Unit/Ml 10 Ml Vial) 30 unit SUBCUT BEDTIME [facility] Last Admin: 03/08/21 22:38 Dose: 30 unit Documented by: Insulin Human Lispro (Insulin Lispro 100 Unit/Ml 3 Ml Vial) 0 unit SUBCUT QIDACHS [facility]; Protocol Last Admin: 03/09/21 08:11 Dose: Not Given Documented by: Latanoprost (Latanoprost 0.005 % Ophth Tatianna 2.5 Ml Drops) 1 drop EYE-BOTH BEDTIME [facility] Last Admin: 03/08/21 23:18 Dose: Not Given Documented by: Lisinopril (Lisinopril 5 Mg Tablet) 5 mg PO DAILY [facility]; Protocol Last Admin: 03/08/21 09:02 Dose: 5 mg Documented by: Omeprazole (Omeprazole 20 Mg Capsule.) 20 mg PO BID@0630,1630 [facility] Last Admin: 03/09/21 05:52 Dose: 20 mg Documented by: Ondansetron HCl (Ondansetron Hcl 4 Mg/2 Ml Vial) 4 mg IVPUSH Q8H PRN PRN Reason: Nausea and Vomiting Pharmacy Consult (Consult Rx Vancomycin Dosing) 1 each MISCELLANE DAILY PRN PRN Reason: Consult order Pharmacy Consult (Consult Rx Vancomycin Dosing) 1 each MISCELLANE DAILY PRN PRN Reason: Consult order Polyethylene Glycol (Polyethylene Glycol 3350 17 Gm Powd.Pack) 17 gm PO DAILY [facility] Last Admin: 03/08/21 08:55 Dose: Not Given Documented by: Sodium Chloride (0.9 % Sodium Chloride Flush 3 Ml Syringe) 3 ml IVFLUSH QSHIFT [facility] Last Admin: 03/09/21 01:18 Dose: Not Given Documented by: Time Spent With Patient Time: Total time spent is greater than 50% in coordination of care (as documented) at patient's floor/unit and/or counseling patient: Time with patient: 15 - 24 minutes Quality Stroke Does the patient have a stroke diagnosis?: No VTE Prior VTE?: No VTE Risk Level:: Medical - moderate - high VTE Device Contraindication: N/A - Device Ordered VTE Drug Contraindication: Treatment Not Tolerated
[2021-03-09] MEDS: Apixaban 5 MG TABLET PO (09:07)
[2021-03-09] MEDS: Baclofen 20 MG TABLET 40 MG PO (09:07)
[2021-03-09] MEDS: lisinopriL 5 MG TABLET PO (09:08)
[2021-03-09] MEDS: Gabapentin 400 MG CAPSULE 800 MG PO (09:09)
[2021-03-09] MEDS: Acetaminophen 325 MG TABLET 650 MG PO (11:19)
[2021-03-09] MEDS: Amoxicillin/Potassium Clav 875 MG TABLET PO (11:20)
[2021-03-09 11:28] VITALS: BP 137/74; PULSE 70; RESP 18; TEMP 36.5; O2SAT 97
--- NOTE | 2021-03-09 11:57 | PC.NURSE ---
Skin/Wound assessment completed. Patient has a pressure ulcer to left ischial/inner thigh. Wound bed is pink and granulated. Hydrofera blue ready applied to wound bed covered with 2 foam dressings. Healed pink scar on left hip. No other skin issues noted at this time.
[2021-03-09 12:04] LABS: Glucose, Whole Blood 154 mg/dL (60-115)
[2021-03-09] MEDS: Insulin Lispro 100 UNIT/ML 3 ML VIAL SUBCUT (12:12)
--- NOTE | 2021-03-09 13:05 | PM.DS ---
DS: Providers Provider Date of Service: 03/09/21 Date of admission: 03/02/21 23:05 Date of discharge: 03/09/21 Primary care physician: Jose Grayson MD Admitting clinician: Yg Shirley Consults: 03/02/21 23:12 Consult to General Surgery Routine Consulting Provider: Felix Vail Reason for consultation: Extensive pressure wound Has provider been notified: Yes 03/04/21 07:48 Consult to Infectious Diseases Routine Consulting Provider: Sandra Gomez Reason for consultation: nonhealing wound Has provider been notified: No 03/08/21 09:06 Consult to Gastroenterology [place]ine [place] [facility] [place] Reason for consultation: ABD PAIN/anemia ?iron def Has provider been notified: No DS: Diagnosis Discharge Diagnosis (1) Decubitus ulcer of right ischial tuberosity region: Status: Acute DS: Summary Hospital Course Hospital Course: 66-year-old male with past medical history of diabetes, paraplegic pulse spinal injury, HTN, history of PE, and history of decubitus ulcer of the right ischial tuberosity region presents to the hospital complaining of a new wound next to his chronic decubitus ulcer after he had wound VAC in place.? Patient denies any fever no chills, reports clear drainage from his new wound, malodorous.? Patient is paraplegic with no sensation therefore he has no pain, denies any abdominal pain nausea or vomiting, no diarrhea constipation, no urinary symptoms and no lower extremity edema.? He has chronic healing wound in his feet with no change. On arrival to the ED patient hemodynamically stable with no significant abnormal vitals Labs are significant for WBC count of 7.1, hemoglobin of 9.1 which is around his baseline. UA shows nitrites, leukocyte Estrace and WBC Abdominal/pelvic CT shows moderate to severe constipation, right inguinal hernia containing fat, shows no evidence of osteomyelitis General surgery informed and patient will be admitted for further evaluation. Hospital course: 66-year-old male who is paraplegic presents to the hospital with a new nonhealing wound 1. decubitus ulcer of right ischial tuberosity:appears infected with malodorous discolored intially , blood cultures sent, seen by surgery: status post dissection and wound culture sent Afterwards dressing change every day-now no more drainage, MRI did not reveal osteomyelitis. Would consider grew MSSA- Patient switched to p.o. antibiotic, please complete the course. 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 switched to po augmentin/doxycyclin. 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 2.UTI- patient has chronic catheter- positive nitrites, leukocyte Estrace and WBC, urine culture -mixed efrain continue po antibiotics. Further management outpatient. 3.. hypochromic anemia: post dissection-decubtii overlast -h/h 11, slowly trending down , fecal immonchem test neg in 2018 he has cologuard test positive earlier,had colonoscopy-poor prep in 10/03 tranfuse 2 prbc-h/h trended up 9.2 range. Seen by GI inpatient-recommend outpatient followup with his established GI provider, at which time, consideration can be given to evaluation of the upper GI tract with endoscopy because of his iron-deficiency anemia.?? hold asa , added omeprazole, monitor CBC outpatient with PCP and GI. Above management discussed with the patient in detail length he understand and in agreement with the above plan, time spent 50 minutes and 50% time spent on counseling. Significant findings: As above. Procedures performed: None. Treatment and response: As above. Complications: None. Time Spent with Patient Time attestation: Total time spent providing and/or coordinating discharge services: Discharge coordination time: Greater than 30 minutes Quality: Stroke Does the patient have a stroke diagnosis?: No Physical Exam Vital Signs: Vital Signs: Last Vital Signs Temp 97.7 F 03/09/21 11:28 Pulse 70 03/09/21 11:28 Resp 18 03/09/21 11:28 BP 137/74 03/09/21 11:28 Pulse Ox 97 03/09/21 11:28 Body Mass Index 29.5 Alert.? Oriented X3.? Eyes: Pupils equal, round and reactive to light.? Sclera nonicteric.? cvs: rrr, [id number] , no murmur res: clear to auscultation ,no rhonchii or wheezing abd: no rebound or guarding ,nt, bs present. skin:??Left ischial decubitus ulcer located at the junction of the buttock and medial posterior thigh-s/p dissection-no discharge or erythema . ext pulses present , no cyanosis ,Gait well balanced well coordinated. neuro: axo3 , nonfoca DS: Data Data Completed and Pending Completed studies during hospitalization [Text1]: Pending at discharge 03/03/21 13:24 Surgical [PTH] Routine Labs on day of discharge: Laboratory Results - last 24 hr 03/08/21 03/08/21 03/09/21 16:36 20:29 05:30 Creatinine 0.83 Estim Creat Clear Calc 112.8 Estimated GFR > 60 POC Glucose 290 H 205 H 03/09/21 03/09/21 07:07 11:26 Creatinine Estim Creat Clear Calc Estimated GFR POC Glucose 138 H 154 H Discharge Plan Discharge Patient Disposition: Home Health Service Discharge Diagnosis: decubtiii, anemia Referrals: [facility] [Outside] - 1 Week Jose Grayson MD [Primary Care Provider] - 1 Week Nisa Dawson MD [Physician] - 1 Week (fu outpatiently) Felix Vail MD [Physician] - 3 Weeks Discharge Medications: New acetaminophen 325 mg Tablet 650 mg PO Q6H PRN (Reason: Pain, Mild (Pain Scale 1-3)) Qty: 20 RF: 0 omeprazole 20 mg Capsule,Delayed Release(Dr/Ec) 20 mg PO BID@0630,1630 Qty: 30 RF: 0 doxycycline hyclate 100 mg Tablet 100 mg PO Q12H Qty: 16 RF: 0 amoxicillin-pot clavulanate 875-125 mg Tablet 875 mg PO Q12H Qty: 16 RF: 0 Continued Lantus Solostar U-100 Insulin 100 unit/mL (3 mL) insulin pen 20 unit subcut DAILY RF: 0 baclofen 20 mg tablet 2 tab PO BID RF: 0 diclofenac sodium 1 % gel 2 g topical TID-QID RF: 0 Eliquis 5 mg tablet 1 tab PO BID RF: 0 latanoprost 0.005 % drops 1 drp ophthalmic (eye) BEDTIME RF: 0 lisinopril 5 mg tablet 5 mg PO DAILY RF: 0 gabapentin 800 mg tablet 800 mg PO BID RF: 0 metformin 1,000 mg tablet 1,000 mg PO BID RF: 0 Held aspirin 81 mg tablet,delayed release (DR/EC) 1 tab PO DAILY RF: 0 Hold Instructions: Resume on 03/16/21. start after repeat cbc as per pcp /GI. Discharge Orders: Discharge Order (Routine); Ordered 03/09/21 Ordered By: Yg Shirley Diet: advance to usual diet, diabetic diet, low fat, low cholesterol and low salt diet Activity on Discharge: As tolerated Stand Alone Forms: Patient Portal Discharge page Other Ambulatory Orders: Basic Metabolic Panel Fasting (Routine) Timeframe: 1 Week Facility: [facility] - Location: Laboratory Ordered By: Yg Shirley Complete Blood Count no Diff (Routine) Timeframe: 1 Week Facility: [facility] - Location: Laboratory Ordered By: Yg Shirley Activity Restrictions/Additional Instructions: Dressing change instructions for left ischeal decubitus ulcer pending [facility] [place] reeval[place]: [id number]-[id number] dressing change with Hydrofera blue to open wound followed by two Allevyn foam dressings. Press warm hand on Allevyn for good adherence. Care Plan Goals: decubitus ulcer of right ischial tuberosity:appears infected with malodorous discolored intially , blood cultures sent, seen by surgery: status post dissection and wound culture sent Afterwards dressing change every day-now no more drainage, MRI did not reveal osteomyelitis. Would consider grew MSSA- Patient switched to p.o. antibiotic, please complete the course. 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 switched to po augmentin/doxycyclin. 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 UTI- patient has chronic catheter- positive nitrites, leukocyte Estrace and WBC, urine culture -mixed efrain continue po antibiotics. Further management outpatient. hypochromic anemia: post dissection-decubtii overlast -h/h 11, slowly trending down , fecal immonchem test neg in 2018 he has cologuard test positive earlier,had colonoscopy-poor prep in 10/03 tranfuse 2 prbc-h/h trended up 9.2 range. Seen by GI inpatient-recommend outpatient followup with his established GI provider, at which time, consideration can be given to evaluation of the upper GI tract with endoscopy because of his iron-deficiency anemia.?? hold asa , added omeprazole, monitor CBC outpatient with PCP and GI. Health Concerns: As above. Plan of Treatment: As above. Assessment: As above.
--- NOTE | 2021-03-09 13:46 | MHC.CM.PN ---
PATIENT IS RETURNING HOME WITH RESUMPTION OF [facility] SERVICES FOR RN SKILLS IMM 03/08 IN CHART
--- NOTE | 2021-03-09 13:47 | P.F2F_ITS ---
Service Date Service Date: 03/09/21 Encounter Date of encounter: 03/09/21 Encounter: Decubitus ulcer status post dissection, anemia Reasons for Services Reason for jail: CV/CP assess and/or care, neurological assessment, wound care, administration of IV, SQ, or IM injection, central line care, postoperative assessment and/or care, diabetic teaching, monitoring of unstable blood sugar, monitoring of PT/INR, medication management, medication treatment, teach disease management, GI/ assessment and other MD Overseeing Care: Jose Grayson Homebound: Leaving the home is medically contraindicated at this time without the asist of a device and/or another person due th the listed conditions above and below. Homebound supporting statement: Patient is help with wound care, lab draws and also wound to the appointment generally weak post hospitalization. Denies any new complaint of chest pain or shortness of breath or abdominal pain or fever or chills or nausea or vomiting Denies any cough Denies any weakness or numbness. Certification: Based on the above findings, I certify that this patient is confined to the home and needs intermittent jail care, physical therapy and/or speech therapy, or continues to need occupational therapy. The patient is under my care, and I have initiated the establishment of the plan of care. The patient will be followed by a physician who will periodically review the plan of care.
--- NOTE | 2021-03-09 14:59 | MHC.CM.PN ---
ACTION AMBULANCE TRANSPORT FROM [facility] [place] TO HOME REQUESTED FOR 1630. RN AWARE
--- NOTE | 2021-03-20 10:42 | P.CDIR_ITS ---
Documented by User: Ladan Gordon RN 03/20/21 10:47 Retrospective Query PHYSICIAN'S DOCUMENTATION REQUEST Date of Query: 03/20/21 1044 Patient Name: Israel Levi Admit Date: 03/02/21 Dear Doctor, A review of the medical record indicates additional documentation may be needed. Please review below and update the documentation accordingly. Clinical Indicators: The following diagnoses or signs and symptoms were noted in the patient record: Risk Factors/Clinical Indicators/Treatments Per MD progress note 03/09/21: Other: ? Left ischial decubitus ulcer dressings changed.? Good granulation tissue noted now.? No foul discharge.? Surrounding skin is clean without erythema.? Wet to dry dressings applied. Procedures Date of Service Date of Service: 03/09/21 Progress Note: A&P Assessment and plan (1) Decubitus ulcer of right ischial tub erosity region: ?Status:?Acute Based on the above, could you clarify in the Progress Notes the appropriate diagnosis, if significant, that supports the above abnormalities and additional evaluation, monitoring, and/or treatment rendered: * Please clarify the laterality of the ischial decubitus ulcer, left or right * Other (please specify) * Unable to determine Use of terms such as suspected, likely, concern for, or probable (associated with a specific diagnosis that is being evaluated, monitored, or treated as if it exists) are acceptable and can be coded in the inpatient setting, when documented at the time of discharge. Thank you, Ladan Gordon RN Extension: [phone] Please use your independent medical judgment in providing your response. THIS QUERY IS PART OF THE PERMANENT MEDICAL RECORD Documented by User: Felix Vail MD 03/20/21 13:31 Retrospective Query PHYSICIAN'S DOCUMENTATION REQUEST Date of Query: 03/20/21 1044 Patient Name: Israel Levi Admit Date: 03/02/21 Dear Doctor, A review of the medical record indicates additional documentation may be needed. Please review below and update the documentation accordingly. Clinical Indicators: The following diagnoses or signs and symptoms were noted in the patient record: Risk Factors/Clinical Indicators/Treatments Per MD progress note 03/09/21: Other: ? Left ischial decubitus ulcer dressings changed.? Good granulation tissue noted now.? No foul discharge.? Surrounding skin is clean without ochoa thema.? Wet to dry dressings applied. Procedures Date of Service Date of Service: 03/09/21 Progress Note: A&P Assessment and plan (1) Decubitus ulcer of right ischial tub erosity region: ?Status:?Acute correction: Correct diagnosis is decubitus ulcer left ischial tuberosity. Based on the above, could you clarify in the Progress Notes the appropriate diagnosis, if significant, that supports the above abnormalities and additional evaluation, monitoring, and/or treatment rendered: * Please clarify the laterality of the ischial decubitus ulcer, left or right * Other (please specify) * Unable to determine Use of terms such as suspected, likely, concern for, or probable (associated wi th a specific diagnosis that is being evaluated, monitored, or treated as if it exists) are acceptable and can be coded in the inpatient setting, when documented at the time of discharge. Thank you, Ladan Gordon RN Extension: [phone] Please use your independent medical judgment in providing your response. THIS QUERY IS PART OF THE PERMANENT MEDICAL RECORD Provider Response: Other (Decubitus ulcer left ischial tuberosity)
== END 2021-03-09 17:28 | disposition home health service (06) | DRG 673 ==
LOC: HO.ED 21:58 → HO.EDOVER 03-03 02:42 → HO.S3 03-03 15:19
PROVIDERS: Nurse Practitioner Family; Surgery; Admitting Provider Internal Medicine; Emergency Provider Emergency Medicine; PCP Internal Medicine; Visit Provider Internal Medicine
PROC: 0JBM0ZZ Excision of Left Upper Leg Subcutaneous Tissue and Fascia, Open Approach (ICD-10-PCS; principal; 2021-03-03 11:50)
DX: T83.511A Infection and inflammatory reaction due to indwelling urethral catheter, initial encounter (principal); L89.224 Pressure ulcer of left hip, stage 4; G82.20 Paraplegia, unspecified; N39.0 Urinary tract infection, site not specified; I10 Essential (primary) hypertension; E11.622 Type 2 diabetes mellitus with other skin ulcer; Z20.822 Contact with and (suspected) exposure to COVID-19; Z86.711 Personal history of pulmonary embolism; B95.61 Methicillin susceptible Staphylococcus aureus infection as the cause of diseases classified elsewhere; Z79.01 Long term (current) use of anticoagulants; D50.9 Iron deficiency anemia, unspecified; Z79.4 Long term (current) use of insulin; Z79.82 Long term (current) use of aspirin; Z79.899 Other long term (current) drug therapy
CPT/HCPCS: 36415; 72197; 74177; 80048; 80076; 80202; 81001; 82565; 82947; 83540; 83605; 83690; 85014; 85018; 85025; 85027; 85610; 85652; 85730; 86140; 86850; 86900; 86901; 86923; 87040; 87071; 87077; 87086; 87186; 87205; 87635; 88305; 93005; 96365; 96367; 99024; 99285; 99291; A9585; J0690; J2250; J2370; J2543; J3010; J3370; P9016; Q9967

== ENCOUNTER 2021-03-18 11:24 | Outpatient (REF) | payer MEDICARE, MEDICAID, SELFPAY ==
[2021-03-18 11:38] LABS: MANUAL DIFF FLAG NO
[2021-03-18 11:46] LABS: Basophils Percent Auto 0.5 % (0-2); Eosinophils Absolute Auto 0.3 X10*3/uL (0.0-0.4); Eosinophils Percent Auto 4.2 % (0-4); Hemoglobin 9.3 g/dl (14.0-18.0); Imm Gran Abs Auto 0.03 X10*3/uL (0.00-0.03); Imm Gran Pct Auto 0.5 % (0.0-0.4); Lymphocytes Absolute Auto 1.8 X10*3/uL (1.2-4.9); Lymphocytes Percent Auto 28.6 % (20-40); Mean Corpuscular Hemoglobin 25.8 pg (27.0-33.0); Mean Corpuscular Volume 83.3 fL (80.0-98.0); Mean Platelet Volume 10.5 fL (9.4-12.4); Monocytes Absolute Auto 0.6 X10*3/uL (0.1-1.2); Monocytes Percent Auto 10.4 % (2-11); Neutrophils Absolute Auto 3.45 x10*3/uL (2.0-8.3); Neutrophils Percent Auto 55.8 % (45-73); Platelet Count 225 X10*3/uL (160-400); Red Cell Distribution Width 17.2 % (11.0-16.0); White Blood Count 6.2 X10*3/uL (4.8-10.8)
[2021-03-18 12:21] LABS: Anion Gap 11 (12-20); Blood Urea Nitrogen 23 mg/dL (9-16); Calcium 8.6 mg/dL (8.4-10.2); Carbon Dioxide 27 mmol/L (22-29); Chloride 103 mmol/L (96-108); Estimated Glomerular Filt Rate > 60; Glucose Random 130 mg/dL (60-115); Potassium 4.3 mmol/L (3.3-5.1); Sodium 137 mmol/L (135-145)
== END 2021-03-18 11:25 | disposition home or self-care (01) ==
LOC: HO.HVNA 11:24
PROVIDERS: Visit Provider Internal Medicine
DX: Z13.89 Encounter for screening for other disorder (principal)
CPT/HCPCS: 36415; 80048; 85025

== ENCOUNTER → 2021-03-31 08:34 | Outpatient (BNVA) | payer MEDICARE, MEDICAID, SELFPAY | PROVIDERS: PCP Internal Medicine; Visit Provider Nurse Practitioner | DX: Z13.89 Encounter for screening for other disorder (principal) | CPT/HCPCS: Q3014 ==

== ENCOUNTER 2021-04-08 14:34 | Inpatient (IN) | payer MEDICARE, MEDICAID, SELFPAY ==
[2021-04-08 14:42] VITALS: BP 114/68; PULSE 103; RESP 18; TEMP 37; O2SAT 98; BMI 22.5
[2021-04-08 16:12] LABS: Eosinophils Absolute Auto 0.2 X10*3/uL (0.0-0.4); Eosinophils Percent Auto 2.5 % (0-4); Hemoglobin 8.4 g/dl (14.0-18.0); MANUAL DIFF FLAG NO; Mean Corpuscular Hemoglobin 24.8 pg (27.0-33.0); Mean Platelet Volume 9.2 fL (9.4-12.4); Red Blood Count 3.39 X10*6/uL (4.60-5.80)
[2021-04-08 16:18] LABS: Basophils Absolute Auto 0.1 X10*3/uL (0.0-0.2); Basophils Percent Auto 0.7 % (0-2); Hematocrit 27.6 % (42.0-52.0); Imm Gran Abs Auto 0.02 X10*3/uL (0.00-0.03); Imm Gran Pct Auto 0.3 % (0.0-0.4); Lymphocytes Absolute Auto 1.4 X10*3/uL (1.2-4.9); Lymphocytes Percent Auto 18.7 % (20-40); Mean Corpuscular HGB Conc 30.4 g/dl (31.0-36.0); Mean Corpuscular Volume 81.4 fL (80.0-98.0); Monocytes Absolute Auto 0.4 X10*3/uL (0.1-1.2); Monocytes Percent Auto 5.8 % (2-11); Neutrophils Absolute Auto 5.5 x10*3/uL (2.0-8.3); Platelet Count 407 X10*3/uL (160-400); Red Cell Distribution Width 16.3 % (11.0-16.0); White Blood Count 7.6 X10*3/uL (4.8-10.8)
[2021-04-08 16:39] LABS: Anion Gap 15 (12-20); Blood Urea Nitrogen 14 mg/dL (9-16); Calcium 9.1 mg/dL (8.4-10.2); Carbon Dioxide 25 mmol/L (22-29); Chloride 104 mmol/L (96-108); Creatinine Clr Calc Pharmacy 110.4; Estimated Glomerular Filt Rate > 60; Glucose Random 212 mg/dL (60-115); Potassium 4.8 mmol/L (3.3-5.1); Sodium 139 mmol/L (135-145)
--- NOTE | 2021-04-08 18:10 | ED_ITS ---
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 Patient denies any dizziness, lightheadedness, headaches, shortness of breath, heart palpitations, hematemesis, hemoptysis, melena, hematochezia, and denies any he noted hematuria. Patient states that he was recently hospitalized after his wound VAC that was placed for a decubitus ulcer was noted to be sucking ?a lot of blood?. Patient states that he is on Eliquis as well as aspirin. Related Data Home Medications Medication Instructions Recorded Confirmed gabapentin 800 mg tablet 800 mg PO BID 02/22/20 03/03/21 lisinopril 5 mg tablet 5 mg PO DAILY 02/22/20 03/03/21 metformin 1,000 mg tablet 1,000 mg PO BID 02/22/20 03/03/21 aspirin 81 mg tablet,delayed 1 tab PO DAILY 09/04/20 03/03/21 release apixaban 5 mg tablet (Eliquis) 1 tab PO BID 03/03/21 03/03/21 baclofen 20 mg tablet 2 tab PO BID 03/03/21 03/03/21 diclofenac sodium 1 % topical gel 2 g TOPICAL TID-QID 03/03/21 03/03/21 insulin glargine 100 unit/mL (3 20 unit SUBCUT DAILY 03/03/21 03/03/21 mL) subcutaneous pen (Lantus Solostar U-100 Insulin) latanoprost 0.005 % eye drops 1 drp OPHTHALMIC (EYE) BEDTIME 03/03/21 03/03/21 Previous Rx's Medication Instructions Recorded acetaminophen 325 mg tablet 650 mg PO Q6H PRN #20 tab 03/09/21 amoxicillin 875 mg-potassium 875 mg PO Q12H #16 tab 03/09/21 clavulanate 125 mg tablet doxycycline hyclate 100 mg tablet 100 mg PO Q12H #16 tab 03/09/21 omeprazole 20 mg capsule,delayed 20 mg PO BID@0630,1630 #30 cap 03/09/21 release ferrous sulfate 325 mg (65 mg 325 mg PO DAILY 30 Days #30 tab 03/31/21 iron) tablet Allergies Allergy/AdvReac Type Severity Reaction Status Date / Time levofloxacin [From LEVAQUIN] Allergy Intermediate HIVES, Verified 03/31/21 08:38 SKIN RASH seafood Allergy Intermediate Itching Verified 03/31/21 08:38 throat shellfish derived Allergy Intermediate itching Verified 03/31/21 08:38 throat Review of Systems Review of Systems: Pertinent positives and negatives as stated in HPI and 10 point review of systems is otherwise negative. [facility] Past Medical History Source: nursing notes reviewed Medical History Decubitus ulcer of right ischial tuberosity region Diabetes HTN (hypertension) Hx pulmonary embolism Osteomyelitis Osteomyelitis of left foot Paraplegia Right foot infection (Unknown) Surgical History History of spinal surgery Hx of colonoscopy Hx of foot surgery Family History Family History Father No problems noted. Mother No problems noted. Brother No problems noted. Sister No problems noted. Sister No problems noted. Sister No problems noted. Son No problems noted. Son No problems noted. Son No problems noted. Son No problems noted. Daughter No problems noted. Daughter No problems noted. Social History Social History Household Members: Significant Other Household Members Other:: roommate Housing: House Do you presently have visiting nurse or other home services: Yes Alcohol intake: never Patient Tobacco Use Status: Never used Tobacco Second Hand Smoke Exposure: No Use of substances other than those prescribed or required for medical reasons: No Advance Directives: No Advance Directives Information Provided: No Current occupational status: disabled Physical Exam Vital Signs: Vital Signs: Last Vital Signs Temp 98.4 F 04/08/21 21:33 Pulse 104 H 04/08/21 21:33 Resp 16 04/08/21 21:33 BP 104/71 04/08/21 21:33 Pulse Ox 99 04/08/21 21:33 Body Mass Index 22.5 VITAL SIGNS: Reviewed. GENERAL: Well developed, well nourished, in no acute distress. HEAD: Normocephalic/atraumatic, EYES: PERRLA, EOMI without conjunctival pallor OROPHARYNX: no oral lesions noted, posterior pharynx clear NECK: Supple, no adenopathy LUNGS: Normal breath sounds. No adventitious sounds or accessory muscle use. SpO2<98> CARDIOVASCULAR: Regular rate and rhythm without noted murmurs, no JVD or lower extremity edema. ABDOMEN: Soft, non-tender, non-distended with bowel sounds. ASIA: No fissures, no hemorrhoids noted, dark stool without cherry blood, soft : Indwelling catheter DECUBITUS AT LEFT GLUTEUS: Clean base, no obvious stigmata of bleeding this is a stage 5 SKIN: Inspection of the skin reveals no rashes, pallor NEUROLOGIC: Alert and oriented x 4, paraplegic in wheelchair at baseline Course Course Course Narrative: 66-year-old male on blood thinners with bleeding through wound VAC in mid February and received 2 units of blood at that time and now presents with persistent anemia and patient informs that he only recently started taking iron supplementation. Review of all investigations consistent with persistent down trend of H&H with objective tachycardia and stool noted to be guaiac positive. Patient is currently on Eliquis for PE and is noted to have had a positive Cologuard in February. Patient will receive 1 unit RBCs and was consented via corporate trust officer. This case was discussed with the inpatient hospitalist who accepts admission. MDM - Recheck/Abnormal Lab/Rx Lab Data Result diagrams: 04/08/21 16:04 04/08/21 16:04 Labs: Lab Results 04/08/21 04/08/21 04/08/21 Range/Units 16:04 16:04 16:04 WBC 7.6 (4.8-10.8) X10*3/uL RBC 3.39 L (4.60-5.80) X10*6/uL Hgb 8.4 L (14.0-18.0) g/dl Hct 27.6 L (42.0-52.0) % MCV 81.4 (80.0-98.0) fL MCH 24.8 L (27.0-33.0) pg MCHC 30.4 L (31.0-36.0) g/dl RDW 16.3 H (11.0-16.0) % Plt Count 407 H D (160-400) X10*3/uL MPV 9.2 L (9.4-12.4) fL Immature Gran % (Auto) 0.3 (0.0-0.4) % Neut % (Auto) 72.0 (45-73) % Lymph % (Auto) 18.7 L (20-40) % [place] % (Auto) 5.8 (2-11) % Eos % (Auto) 2.5 (0-4) % Baso % (Auto) 0.7 (0-2) % Lymph # (Auto) 1.4 (1.2-4.9) X10*3/uL [place] # (Auto) 0.4 (0.1-1.2) X10*3/uL Eos # (Auto) 0.2 (0.0-0.4) X10*3/uL Baso # (Auto) 0.1 (0.0-0.2) X10*3/uL Abs Immat Gran (auto) 0.02 (0.00-0.03) X10*3/uL Absolute Neuts (auto) 5.5 (2.0-8.3) x10*3/uL Absolute Nucleated RBC 0.000 (0.0-0.012) X10*3/uL Nucleated RBC % (auto) 0.0 (0.0-0.2) /100WBC Sodium 139 (135-145) mmol/L Potassium 4.8 (3.3-5.1) mmol/L Chloride 104 (96-108) mmol/L Carbon Dioxide 25 (22-29) mmol/L Anion Gap 15 (12-20) BUN 14 (9-16) mg/dL Creatinine 0.76 (0.5-1.4) mg/dL Estim Creat Clear Calc 110.4 Estimated GFR > 60 Random Glucose 212 H D (60-115) mg/dL Calcium 9.1 (8.4-10.2) mg/dL Urine Color Urine Appearance Urine pH (5.0-8.0) Ur Specific [place] (1.005-1.025) Urine Protein (NEG-TRACE) MG/DL Urine Glucose (UA) (NEG) MG/DL Urine Ketones (NEG) MG/DL Urine Blood (NEG) Urine Nitrite (NEG) Ur Leukocyte Esterase (NEG) Urine RBC (0) /HPF Urine WBC (0-4) /HPF Ur Squamous Epith Cells /LPF Triple Phos Crystals /LPF Urine Bacteria /LPF Stool Occult Blood (NEGATIVE) COVID-19 ([facility]) (Negative) COVID-19 Clin Com Blood Type O Positive Antibody Screen NEGATIVE Crossmatch See Detail 04/08/21 04/08/21 04/08/21 Range/Units 19:11 20:00 21:47 WBC (4.8-10.8) X10*3/uL RBC (4.60-5.80) X10*6/uL Hgb (14.0-18.0) g/dl Hct (42.0-52.0) % MCV (80.0-98.0) fL MCH (27.0-33.0) pg MCHC (31.0-36.0) g/dl RDW (11.0-16.0) % Plt Count (160-400) X10*3/uL MPV (9.4-12.4) fL Immature Gran % (Auto) (0.0-0.4) % Neut % (Auto) (45-73) % Lymph % (Auto) (20-40) % [place] % (Auto) (2-11) % Eos % (Auto) (0-4) % Baso % (Auto) (0-2) % Lymph # (Auto) (1.2-4.9) X10*3/uL [place] # (Auto) (0.1-1.2) X10*3/uL Eos # (Auto) (0.0-0.4) X10*3/uL Baso # (Auto) (0.0-0.2) X10*3/uL Abs Immat Gran (auto) (0.00-0.03) X10*3/uL Absolute Neuts (auto) (2.0-8.3) x10*3/uL Absolute Nucleated RBC (0.0-0.012) X10*3/uL Nucleated RBC % (auto) (0.0-0.2) /100WBC Sodium (135-145) mmol/L Potassium (3.3-5.1) mmol/L Chloride (96-108) mmol/L Carbon Dioxide (22-29) mmol/L Anion Gap (12-20) BUN (9-16) mg/dL Creatinine (0.5-1.4) mg/dL Estim Creat Clear Calc Estimated GFR Random Glucose (60-115) mg/dL Calcium (8.4-10.2) mg/dL Urine Color YELLOW Urine Appearance HAZY Urine pH 8.5 H (5.0-8.0) Ur Specific [place] 1.010 (1.005-1.025) Urine Protein TRACE (NEG-TRACE) MG/DL Urine Glucose (UA) NEG (NEG) MG/DL Urine Ketones NEG (NEG) MG/DL Urine Blood NEG (NEG) Urine Nitrite POS H (NEG) Ur Leukocyte Esterase 1+ H (NEG) Urine RBC 0-2 (0) /HPF Urine WBC 5-9 H (0-4) /HPF Ur Squamous Epith Cells NONE /LPF Triple Phos Crystals 3+ /LPF Urine Bacteria 2+ /LPF Stool Occult Blood POSITIVE (NEGATIVE) COVID-19 ([facility]) Negative (Negative) COVID-19 Clin Com See Note Blood Type Antibody Screen Crossmatch Discharge Plan Discharge Clinical Impression: GI bleed, Signs and symptoms of anemia Patient Disposition: Admitted As Inpatient Prescriptions: No Action aspirin 81 mg tablet,delayed release (DR/EC) 1 tab PO DAILY RF: 0 Hold Instructions: Resume on 03/16/21. start after repeat cbc as per pcp /GI. Sita Solostar U-100 Insulin 100 unit/mL (3 mL) insulin pen 20 unit subcut DAILY RF: 0 baclofen 20 mg tablet 2 tab PO BID RF: 0 diclofenac sodium 1 % gel 2 g topical TID-QID RF: 0 Eliquis 5 mg tablet 1 tab PO BID RF: 0 latanoprost 0.005 % drops 1 drp ophthalmic (eye) BEDTIME RF: 0 acetaminophen 325 mg Tablet 650 mg PO Q6H PRN (Reason: Pain, Mild (Pain Scale 1-3)) Qty: 20 RF: 0 omeprazole 20 mg Capsule,Delayed Release(Dr/Ec) 20 mg PO BID@0630,1630 Qty: 30 RF: 0 doxycycline hyclate 100 mg Tablet 100 mg PO Q12H Qty: 16 RF: 0 amoxicillin-pot clavulanate 875-125 mg Tablet 875 mg PO Q12H Qty: 16 RF: 0 ferrous sulfate 325 mg (65 mg iron) tablet 325 mg PO DAILY 30 Days Qty: 30 RF: 6 lisinopril 5 mg tablet 5 mg PO DAILY RF: 0 gabapentin 800 mg tablet 800 mg PO BID RF: 0 metformin 1,000 mg tablet 1,000 mg PO BID RF: 0
[2021-04-08 19:09] VITALS: BP 109/56; PULSE 104; RESP 16; TEMP 37.3; O2SAT 97
[2021-04-08 19:27] LABS: Appearance Urine HAZY; Color Urine YELLOW; Glucose Urine UA NEG (NEG); Leukocyte Esterase Urine 1+ (NEG); Nitrite Urine POS (NEG); PH 8.5 (5.0-8.0); UACC Culture Trigger YES; Urine Blood NEG (NEG); Urine Ketones NEG (NEG); Urine Protein TRACE MG/DL (NEG-TRACE)
[2021-04-08 19:38] LABS: RBC Urine 0-2 /HPF (0); UACC CULT YES
[2021-04-08 19:39] LABS: Bacteria Urine 2+ /LPF; Triple Phosphate Crystal Urine 3+ /LPF
[2021-04-08 20:19] LABS: OBS Int Ctl Valid YES; OBS1 POSITIVE (NEGATIVE)
[2021-04-08 21:33] VITALS: BP 104/71; PULSE 104; RESP 16; TEMP 36.9; O2SAT 99
--- NOTE | 2021-04-08 21:57 | PC.NURSE ---
The pt required assistance turning to the side to have a bowel movement. He informed us that he performs digital disampaction independently and was given surgi lube and gloves and assisted onto his side. when he was finished he was assisted with cleansing his skin. care was taken to assure no stool was in decubitus wound - this dressing appears clean/dry/intact. The pt remains alert and oriented x 3, has been communicating via hospital hand inserter operator effectively. No chest pain. No shortness of rbeath. Will continue to monitor.
[2021-04-08 22:13] LABS: COVID-19 Test Negative (Negative)
--- NOTE | 2021-04-08 22:32 | PM.IMHP ---
History of Present Illness Date of Service: 04/08/21 Chief Complaint: Low Hemoglobin 66-year-old male with a past medical history of hypertension, hyperlipidemia, diabetes, [id number], history of osteomyelitis, history of 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 Patient reported that he had routine work done with PCP and was noted to have low hemoglobin and subsequently sent to the hospital for further evaluation. Patient denies noting seeing any blood in the stool. Denies any hematemesis. Denies any chest pain palpitations lightheadedness or dizziness pain Denies any fever chills cough. Reported that he has decubitus ulcer and is supposed to b getting wound vac from his physician. Patient reported that he took his last dose of Eliquis on 04/08 a.m. Review of all other systems is negative except mentioned above ER course: Per ER team patient's hemoglobin was noted to be 8.4. Stool guaiac was positive. Admitted to the hospital for further management. [facility] Medical History Decubitus ulcer of right ischial tuberosity region Diabetes HTN (hypertension) Hx pulmonary embolism Osteomyelitis Osteomyelitis of left foot Paraplegia Right foot infection (Unknown) Family History Father No problems noted. Mother No problems noted. Brother No problems noted. Sister No problems noted. Sister No problems noted. Sister No problems noted. Son No problems noted. Son No problems noted. Son No problems noted. Son No problems noted. Daughter No problems noted. Daughter No problems noted. Pertinent family history: as above Surgical History History of spinal surgery Hx of colonoscopy Hx of foot surgery Social History Household Members: Significant Other Household Members Other:: roommate Housing: House Do you presently have visiting nurse or other home services: Yes Alcohol intake: never Patient Tobacco Use Status: Never used Tobacco Second Hand Smoke Exposure: No Use of substances other than those prescribed or required for medical reasons: No Advance Directives: No Advance Directives Information Provided: No service: No Current occupational status: disabled Meds Allergies Allergy/AdvReac Type Severity Reaction Status Date / Time levofloxacin [From LEVAQUIN] Allergy Intermediate HIVES, Verified 03/31/21 08:38 SKIN RASH seafood Allergy Intermediate Itching Verified 03/31/21 08:38 throat shellfish derived Allergy Intermediate itching Verified 03/31/21 08:38 throat Active Medications: Current Medications Acetaminophen (Acetaminophen 325 Mg Tablet) 650 mg PO Q6H PRN PRN Reason: Pain, Mild (Pain Scale 1-3) Dextrose (Dextrose 50 % 25 Gm/50 Ml Vial) 25 gm IVPUSH Q15M PRN; Protocol PRN Reason: per Hypoglycemia Standing Ord. Gabapentin (Gabapentin 600 Mg Tablet) 600 mg PO BID [facility] Glucose (Glucose Gel 15 Gm Gel..Gram.) 15 gm PO Q15M PRN; Protocol PRN Reason: per Hypoglycemia Standing Ord. Dextrose/Sodium Chloride (D51/2ns) 1,000 mls @ 50 mls/hr IVCONT .Q20H [facility] Insulin Human Lispro (Insulin Lispro 100 Unit/Ml 3 Ml Vial) 0 unit SUBCUT QIDACHS [facility]; Protocol Latanoprost (Latanoprost 0.005 % Ophth Tat[place]na 2.5 Ml Drops) 1 drop EYE-BOTH BEDTIME [facility] Melatonin (Melatonin 3 Mg Tablet) 6 mg PO BEDTIME PRN PRN Reason: Insomnia Pantoprazole Sodium (Pantoprazole Sodium 40 Mg/10 Ml Vial) 40 mg IVPUSH DAILY@0630 [facility] Senna (Sennosides 8.6 Mg Tablet) 17.2 mg PO BEDTIME PRN PRN Reason: Constipation Sodium Chloride (0.9 % Sodium Chloride Flush 3 Ml Syringe) 3 ml IVFLUSH QSHIFT [facility] Home Medications Medication Instructions Recorded Confirmed Last Taken Type gabapentin 800 mg tablet 800 mg PO BID 02/22/20 03/03/21 03/02/21 History lisinopril 5 mg tablet 5 mg PO DAILY 02/22/20 03/03/21 03/02/21 History metformin 1,000 mg tablet 1,000 mg PO BID 02/22/20 03/03/21 03/02/21 History aspirin 81 mg tablet,delayed 1 tab PO DAILY 09/04/20 03/03/21 03/02/21 History release apixaban 5 mg tablet (Eliquis) 1 tab PO BID 03/03/21 03/03/21 03/02/21 History baclofen 20 mg tablet 2 tab PO BID 03/03/21 03/03/21 03/02/21 History diclofenac sodium 1 % topical gel 2 g TOPICAL TID-QID 03/03/21 03/03/21 03/02/21 History insulin glargine 100 unit/mL (3 20 unit SUBCUT DAILY 03/03/21 03/03/21 03/02/21 History mL) subcutaneous pen (Lantus Solostar U-100 Insulin) latanoprost 0.005 % eye drops 1 drp OPHTHALMIC (EYE) BEDTIME 03/03/21 03/03/21 Unknown History Physical Exam Vital Signs and Narrative: Vital Signs: Last Vital Signs Temp 98.4 F 04/08/21 21:33 Pulse 104 H 04/08/21 21:33 Resp 16 04/08/21 21:33 BP 104/71 04/08/21 21:33 Pulse Ox 99 04/08/21 21:33 Body Mass Index 22.5 Gen: Appears be in no acute distress HEENT: NCAT, Moist mucosa. Pulmonary: Vesicular breath sounds, fair air entry CVS: Normal S1-S2 Abdomen: BS+, Soft, Nontender Extremities: Warm well perfused; decubitus ulcer has dressing in place. Neuro: Alert and awake. Results Labs CBC and Chem 7: 04/08/21 16:04 04/08/21 16:04 Labs: Laboratory Results - last 24 hr 04/08/21 04/08/21 04/08/21 16:04 16:04 16:04 MCV 81.4 MCH 24.8 L MCHC 30.4 L RDW 16.3 H Plt Count 407 H D MPV 9.2 L Immature Gran % (Auto) 0.3 Neut % (Auto) 72.0 Lymph % (Auto) 18.7 L [place] % (Auto) 5.8 Eos % (Auto) 2.5 Baso % (Auto) 0.7 Lymph # (Auto) 1.4 [place] # (Auto) 0.4 Eos # (Auto) 0.2 Baso # (Auto) 0.1 Abs Immat Gran (auto) 0.02 Absolute Neuts (auto) 5.5 Absolute Nucleated RBC 0.000 Nucleated RBC % (auto) 0.0 Anion Gap 15 Estim Creat Clear Calc 110.4 Estimated GFR > 60 Random Glucose 212 H D Calcium 9.1 Urine Color Urine Appearance Urine pH Ur Specific [place] Urine Protein Urine Glucose (UA) Urine Ketones Urine Blood Urine Nitrite Ur Leukocyte Esterase Urine RBC Urine WBC Ur Squamous Epith Cells Triple Phos Crystals Urine Bacteria Stool Occult Blood COVID-19 ([facility]) COVID-19 Clin Com Blood Type O Positive Antibody Screen NEGATIVE Crossmatch See Detail 04/08/21 04/08/21 04/08/21 19:11 20:00 21:47 MCV MCH MCHC RDW Plt Count MPV Immature Gran % (Auto) Neut % (Auto) Lymph % (Auto) [place] % (Auto) Eos % (Auto) Baso % (Auto) Lymph # (Auto) [place] # (Auto) Eos # (Auto) Baso # (Auto) Abs Immat Gran (auto) Absolute Neuts (auto) Absolute Nucleated RBC Nucleated RBC % (auto) Anion Gap Estim Creat Clear Calc Estimated GFR Random Glucose Calcium Urine Color YELLOW Urine Appearance HAZY Urine pH 8.5 H Ur Specific [place] 1.010 Urine Protein TRACE Urine Glucose (UA) NEG Urine Ketones NEG Urine Blood NEG Urine Nitrite POS H Ur Leukocyte Esterase 1+ H Urine RBC 0-2 Urine WBC 5-9 H Ur Squamous Epith Cells NONE Triple Phos Crystals 3+ Urine Bacteria 2+ Stool Occult Blood POSITIVE COVID-19 ([facility]) Negative COVID-19 Clin Com See Note Blood Type Antibody Screen Crossmatch Assessment and Plan (1) GI bleed: Status: Acute (2) Decubitus ulcer of right ischial tuberosity region: Status: Acute (3) History of pulmonary embolism: Status: Acute 66-year-old male with a past medical history of hypertension, hyperlipidemia, diabetes, [id number], history of osteomyelitis, history of 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 Noted to have guaiac-positive stool. Admitted to the hospital for further management. Guaiac positive stool: IV ppi. GI consult. Hemoglobin on presentation 8.4. NPO. IV fluids. Monitor H& H. History of decubitus ulcer: Outpatient follow-up with his vascular surgeon. History of diabetes: Insulin sliding scale History of a venous thromboembolism: Home Eliquis on hold until cleared by Gastroenterology. DVT prophylaxis: Eliquis on hold secondary to concerns for bleeding. Code status full code Quality Stroke Does the patient have a stroke diagnosis?: No VTE Prior VTE?: No VTE Risk Level:: Medical - moderate - high VTE Device Contraindication: Treatment Not Indicated VTE Drug Contraindication: Treatment Not Indicated
[2021-04-08 22:39] LABS: Glucose, Whole Blood 174 mg/dL (60-115)
[2021-04-08 23:06] VITALS: BP 124/65; PULSE 104; RESP 16; TEMP 36.9
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
[2021-04-08 23:12] VITALS: BP 124/65; PULSE 103; RESP 16; TEMP 36.9; O2SAT 95
[2021-04-08 23:15] VITALS: BP 122/69; PULSE 97; RESP 16; TEMP 36.9
[2021-04-08] MEDS: Dextrose 5 % and 0.45 % NaCl 1,000 ML 50 ML IVCONT (23:45)
[2021-04-09] VITALS (9 sets, daily range): BP systolic 92–146; BP diastolic 42–79; PULSE 81–88; RESP 14–18; TEMP 36.6–36.9; O2SAT 97–100
[2021-04-09] MEDS: 0.9 % Sodium Chloride Flush 3 ML SYRINGE IVFLUSH ×2 (00:16→07:53)
--- NOTE | 2021-04-09 06:18 | PC.NURSE ---
I assumed care of Israel at 1900 on 04/08. Israel is micronesian speaking and I have utilized [employer] [facility] service crew leader to communicate with Israel. He has remained alert and oriented x 3 throughout the shift while awake/. He has denies chest pain, denies shortness of breath. His speech is clear and appropriate, per medical accounts receivable specialist. He makes eye contact with staff and is capable of verbalizing his needs appropriately. Israel is paraplegic and does not have use of his lower extremities. He has required frequent repositioning - he is capable of doing most of the repositioning himself and is very vigilant with notifying staff when he needs to reposition via use of the call perkins. He has a known decubitus to L buttock that, per the pt, is treated/monitored/wound vac'd here at [facility]. This wound was undressed by Yovanny JONES while here in the ED so that she could assess it. The wound was then repacked with saline moistened gauze by doctor Hairston and a pink foam occlusive dressing was placed over the wound. Care was taken to ensure there is no fecal matter in or around this wound and its dressing. The pt has received 1unit of PRBC's during this shift. He was able to perform his own bowel care earlier in the shift (see previous nurses note). Stool was guiaced and stool card was sent to the lab. The pt also has a chronic indwelling Juarez catheter placed to a leg bag. This catheter has been draining cloudy, foul smelling urine throughout the night. it has been emptied and I&O's recorded. The pt is sleeping at this time but wakes to verbal stimuli. I will continue to monitor israel.
[2021-04-09] MEDS: Pantoprazole Sodium 40 MG/10 ML VIAL IVPUSH (06:32)
[2021-04-09 08:03] LABS: Glucose, Whole Blood 133 mg/dL (60-115)
[2021-04-09 08:50] LABS: MANUAL DIFF FLAG NO
[2021-04-09 08:52] LABS: Basophils Percent Auto 0.8 % (0-2); Eosinophils Absolute Auto 0.2 X10*3/uL (0.0-0.4); Eosinophils Percent Auto 3.6 % (0-4); Hematocrit 27.6 % (42.0-52.0); Hemoglobin 8.5 g/dl (14.0-18.0); Imm Gran Abs Auto 0.01 X10*3/uL (0.00-0.03); Imm Gran Pct Auto 0.2 % (0.0-0.4); Lymphocytes Absolute Auto 1.7 X10*3/uL (1.2-4.9); Lymphocytes Percent Auto 34.1 % (20-40); Mean Corpuscular HGB Conc 30.8 g/dl (31.0-36.0); Mean Corpuscular Hemoglobin 25.2 pg (27.0-33.0); Mean Corpuscular Volume 81.9 fL (80.0-98.0); Mean Platelet Volume 8.8 fL (9.4-12.4); Monocytes Absolute Auto 0.4 X10*3/uL (0.1-1.2); Monocytes Percent Auto 8.6 % (2-11); Neutrophils Absolute Auto 2.6 x10*3/uL (2.0-8.3); Neutrophils Percent Auto 52.7 % (45-73); Platelet Count 346 X10*3/uL (160-400); Red Blood Count 3.37 X10*6/uL (4.60-5.80); Red Cell Distribution Width 17.3 % (11.0-16.0)
[2021-04-09 09:18] LABS: Anion Gap 11 (12-20); Blood Urea Nitrogen 12 mg/dL (9-16); Calcium 8.9 mg/dL (8.4-10.2); Carbon Dioxide 26 mmol/L (22-29); Chloride 106 mmol/L (96-108); Creatinine Clr Calc Pharmacy 133.1; Estimated Glomerular Filt Rate > 60; Glucose Random 133 mg/dL (60-115); Potassium 4.3 mmol/L (3.3-5.1); Sodium 139 mmol/L (135-145)
[2021-04-09] MEDS: Gabapentin 600 MG TABLET PO ×2 (09:39→20:59)
--- NOTE | 2021-04-09 09:50 | PC.NURSE ---
PT SEEN BY DR. MONTES DE OCA, PT AWARE OF PLAN OF CARE.
[2021-04-09] MEDS: Baclofen 20 MG TABLET 40 MG PO ×2 (11:10→20:59)
[2021-04-09 11:45] LABS: Glucose, Whole Blood 104 mg/dL (60-115)
--- NOTE | 2021-04-09 12:09 | P.PNIM_ITS ---
Subjective Subjective Date of Service: 04/09/21 Interval History: the patient was seen and evaluated this morning Laying in bed, complaining of muscle spasm in his lower extremities denies any bleeding or noticing a blood Received a unit of blood overnight Denies any fever, chills or shortness of breath No reported other overnight events. Systemic review: No fever, chills or weakness No chest pain, palpitation No shortness of breath or coughing No abdominal pain, nausea or vomiting No urinary symptoms No any rash or wounds Physical Exam Vital Signs: Vital Signs: Last Vital Signs Temp 98 F 04/09/21 11: Pulse 84 04/09/21 11:27 Resp 16 04/09/21 11:27 BP 98/48 L 04/09/21 11: Pulse Ox 98 04/09/21 11:27 Body Mass Index 22.5 Const: Other: Constitutional : Alert, oriented, not in distress Neck : Normal inspection, Supple Cardiovascular : RRR, S1 S2, no lower extremity edema Respiratory : Good bilateral air entry, no crackles, wheezes or rhonchi Gastrointestinal: soft, lax, Normal bowel sounds, Non tender Skin : Warm, Dry, decubitus ulcer stage III covered with dressing with no surrounding erythema Decubitus ulcer Neurological : Alert & oriented x3, paraplegia Objective Data Active Medications Acetaminophen (Acetaminophen 325 Mg Tablet) 650 mg PO Q6H PRN PRN Reason: Pain, Mild (Pain Scale 1-3) Baclofen (Baclofen 20 Mg Tablet) 40 mg PO BID [facility] Last Admin: 04/09/21 11:10 Dose: 40 mg Documented by: USMAN Dextrose (Dextrose 50 % 25 Gm/50 Ml Vial) 25 gm IVPUSH Q15M PRN; Protocol PRN Reason: per Hypoglycemia Standing Ord. Gabapentin (Gabapentin 600 Mg Tablet) 600 mg PO BID [facility] Last Admin: 04/09/21 09:39 Dose: 600 mg Documented by: AWILDA Glucose (Glucose Gel 15 Gm Gel..Gram.) 15 gm PO Q15M PRN; Protocol PRN Reason: per Hypoglycemia Standing Ord. Dextrose/Sodium Chloride (D51/2ns) 1,000 mls @ 50 mls/hr IVCONT .Q20H [facility] Last Admin: 04/08/21 23:45 Dose: 50 mls/hr Documented by: ANAND Insulin Glargine (Insulin Glargine,Hum.Rec.Anlog 100 Unit/Ml 10 Ml Vial) 15 unit SUBCUT BEDTIME [facility] Insulin Human Lispro (Insulin Lispro 100 Unit/Ml 3 Ml Vial) 0 unit SUBCUT QIDACHS [facility]; Protocol Last Admin: 04/09/21 11:54 Dose: Not Given Documented by: USMAN Non-Admin Reason: No Insulin Coverage Latanoprost (Latanoprost 0.005 % Ophth Tatianna 2.5 Ml Drops) 1 drop EYE-BOTH BEDTIME [facility] Melatonin (Melatonin 3 Mg Tablet) 6 mg PO BEDTIME PRN PRN Reason: Insomnia Pantoprazole Sodium (Pantoprazole Sodium 40 Mg/10 Ml Vial) 40 mg IVPUSH DAILY@0630 [facility] Last Admin: 04/09/21 06:32 Dose: 40 mg Documented by: ANAND Senna (Sennosides 8.6 Mg Tablet) 17.2 mg PO BEDTIME PRN PRN Reason: Constipation Sodium Chloride (0.9 % Sodium Chloride Flush 3 Ml Syringe) 3 ml IVFLUSH QSHIFT [facility] Last Admin: 04/09/21 07:53 Dose: 3 ml Documented by: AWILDA Labs CBC & Chem 7: 04/09/21 08:47 04/09/21 08:47 Labs: Laboratory Results - last 24 hr 04/08/21 04/08/21 04/08/21 16:04 16:04 16:04 MCV 81.4 MCH 24.8 L MCHC 30.4 L RDW 16.3 H Plt Count 407 H D MPV 9.2 L Immature Gran % (Auto) 0.3 Neut % (Auto) 72.0 Lymph % (Auto) 18.7 L [place] % (Auto) 5.8 Eos % (Auto) 2.5 Baso % (Auto) 0.7 Lymph # (Auto) 1.4 [place]ie # (Auto) 0.4 Eos # (Auto) 0.2 Baso # (Auto) 0.1 Abs Immat Gran (auto) 0.02 Absolute Neuts (auto) 5.5 Absolute Nucleated RBC 0.000 Nucleated RBC % (auto) 0.0 Anion Gap 15 Estim Creat Clear Calc 110.4 Estimated GFR > 60 POC Glucose Random Glucose 212 H D Calcium 9.1 Urine Color Urine Appearance Urine pH Ur Specific [place] Urine Protein Urine Glucose (UA) Urine Ketones Urine Blood Urine Nitrite Ur Leukocyte Esterase Urine RBC Urine WBC Ur Squamous Epith Cells Triple Phos Crystals Urine Bacteria Stool Occult Blood COVID-19 ([facility]) COVID-19 Clin Com Blood Type O Positive Antibody Screen NEGATIVE Crossmatch See Detail 04/08/21 04/08/21 04/08/21 19:11 20:00 21:47 MCV MCH MCHC RDW Plt Count MPV Immature Gran % (Auto) Neut % (Auto) Lymph % (Auto) [place] % (Auto) Eos % (Auto) Baso % (Auto) Lymph # (Auto) [place] # (Auto) Eos # (Auto) Baso # (Auto) Abs Immat Gran (auto) Absolute Neuts (auto) Absolute Nucleated RBC Nucleated RBC % (auto) Anion Gap Estim Creat Clear Calc Estimated GFR POC Glucose Random Glucose Calcium Urine Color YELLOW Urine Appearance HAZY Urine pH 8.5 H Ur Specific [place] 1.010 Urine Protein TRACE Urine Glucose (UA) NEG Urine Ketones NEG Urine Blood NEG Urine Nitrite POS H Ur Leukocyte Esterase 1+ H Urine RBC 0-2 Urine WBC 5-9 H Ur Squamous Epith Cells NONE Triple Phos Crystals 3+ Urine Bacteria 2+ Stool Occult Blood POSITIVE COVID-19 ([facility]) Negative COVID-19 Clin Com See Note Blood Type Antibody Screen Crossmatch 04/08/21 04/09/21 04/09/21 22:36 07:59 08:47 MCV 81.9 MCH 25.2 L MCHC 30.8 L RDW 17.3 H Plt Count 346 MPV 8.8 L Immature Gran % (Auto) 0.2 Neut % (Auto) 52.7 Lymph % (Auto) 34.1 [place] % (Auto) 8.6 Eos % (Auto) 3.6 Baso % (Auto) 0.8 Lymph # (Auto) 1.7 [place] # (Auto) 0.4 Eos # (Auto) 0.2 Baso # (Auto) 0.0 Abs Immat Gran (auto) 0.01 Absolute Neuts (auto) 2.6 Absolute Nucleated RBC 0.000 Nucleated RBC % (auto) 0.0 Anion Gap Estim Creat Clear Calc Estimated GFR POC Glucose 174 H 133 H Random Glucose Calcium Urine Color Urine Appearance Urine pH Ur Specific [place] Urine Protein Urine Glucose (UA) Urine Ketones Urine Blood Urine Nitrite Ur Leukocyte Esterase Urine RBC Urine WBC Ur Squamous Epith Cells Triple Phos Crystals Urine Bacteria Stool Occult Blood COVID-19 ([facility]) COVID-19 Clin Com Blood Type Antibody Screen Crossmatch 04/09/21 04/09/21 08:47 11:37 MCV MCH MCHC RDW Plt Count MPV Immature Gran % (Auto) Neut % (Auto) Lymph % (Auto) [place] % (Auto) Eos % (Auto) Baso % (Auto) Lymph # (Auto) [place] # (Auto) Eos # (Auto) Baso # (Auto) Abs Immat Gran (auto) Absolute Neuts (auto) Absolute Nucleated RBC Nucleated RBC % (auto) Anion Gap 11 L Estim Creat Clear Calc 133.1 Estimated GFR > 60 POC Glucose 104 Random Glucose 133 H D Calcium 8.9 Urine Color Urine Appearance Urine pH Ur Specific [place] Urine Protein Urine Glucose (UA) Urine Ketones Urine Blood Urine Nitrite Ur Leukocyte Esterase Urine RBC Urine WBC Ur Squamous Epith Cells Triple Phos Crystals Urine Bacteria Stool Occult Blood COVID-19 ([facility]) COVID-19 Clin Com Blood Type Antibody Screen Crossmatch Assessment and Plan (1) Acute on chronic anemia: Status: Acute (2) GI bleed: Status: Acute Assessment and Plan: 66-year-old male with a past medical history of hypertension, hyperlipidemia, di abetes, [id number], history of osteomyelitis, history of 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 Noted to have guaiac-positive stool. Admitted to the hospital for further management. Acute on chronic blood loss anemia Positive occult blood Continue IV ppi Hemoglobin 8.5 after 1 unit transfusion Gastrology input appreciated, for EGD tomorrow morning Monitor H& H. History of decubitus ulcer Stable, [facility] Outpatient follow-up with his vascular surgeon. Get wound team evaluation History of diabetes Insulin sliding scale History of a venous thromboembolism Home Eliquis on hold until cleared by Gastroenterology. DVT prophylaxis Eliquis on hold secondary to concerns for bleeding. SCDs Quality Stroke Does the patient have a stroke diagnosis?: No VTE Prior VTE?: No VTE Risk Level:: Medical - moderate - high VTE Device Contraindication: Treatment Not Indicated VTE Drug Contraindication: Treatment Not Indicated
[2021-04-09 16:47] LABS: Glucose, Whole Blood 243 mg/dL (60-115)
[2021-04-09] MEDS: Insulin Lispro 100 UNIT/ML 3 ML VIAL SUBCUT (17:28)
[2021-04-09] MEDS: Dextrose 5 % and 0.45 % NaCl 1,000 ML 50 ML IVCONT (17:30)
[2021-04-09] MEDS: Insulin Glargine,Hum.rec.anlog 100 UNIT/ML 10 ML VIAL 15 UNIT SUBCUT (20:59)
[2021-04-09 21:04] LABS: Glucose, Whole Blood 156 mg/dL (60-115)
[2021-04-10] VITALS (8 sets, daily range): BP systolic 103–117; BP diastolic 50–66; PULSE 68–83; RESP 16–20; TEMP 35.5–36.8; O2SAT 94–100; BMI 22.5
[2021-04-10] MEDS: Pantoprazole Sodium 40 MG/10 ML VIAL IVPUSH (06:01)
[2021-04-10 06:24] LABS: Hematocrit 27.8 % (42.0-52.0); Hemoglobin 8.5 g/dl (14.0-18.0); Mean Corpuscular HGB Conc 30.6 g/dl (31.0-36.0); Mean Corpuscular Hemoglobin 25.7 pg (27.0-33.0); Mean Platelet Volume 9.1 fL (9.4-12.4); Platelet Count 375 X10*3/uL (160-400); Red Blood Count 3.31 X10*6/uL (4.60-5.80); Red Cell Distribution Width 17.5 % (11.0-16.0); White Blood Count 4.8 X10*3/uL (4.8-10.8)
--- NOTE | 2021-04-10 06:34 | P.CNGI_ITS ---
History of Present Illness Data of Consult Service Date: 04/10/21 Requesting physician: Aguila Allen Primary Care Provider: Jose Grayson MD HPI Reason for consult: acute on chronic anemia 66-year-old male with a past medical history of hypertension, hyperlipidemia, diabetes, [id number], history of osteomyelitis, right ischial tuberosity region stage IV decubitus ulcer, pulmonary embolism on Eliquis who I am seeing for acute on chronic anemia. Routine lab work done by PCP and was noted to have low hemoglobin and subsequently sent to the hospital for further evaluation.? He denies any overt symptoms of GI blood loss, and denies melena, fresh rectal bleeding. Denies any hematemesis.?No bleeding wounds. Denies any chest pain palpitations lightheadedness or dizziness pain. Denies any fever chills cough. On admission patient's hemoglobin was noted to be 8.4.? Stool guaiac was positive.?Baseline HGB was 9 g/dl prior to this admission but has been 7-8 g/dl on prior occasions when blood was noted in the wound vac for his sacral ulcer Eliquis has been temporarily held. Colonoscopy done by Dr Jiménez earlier this year, hyperplastic polyp removed, no other lesions [facility] Review of Systems Review of Systems: Constitutional : No Weight loss, No Fever, No Chills ENT/Mouth : No sore throat, No Rhinorrhea Eyes: No Swelling, No Redness Cardiovascular : No Chest Pain, No SOB, No Edema Respiratory : No Cough, No Sputum, No Wheezing Gastrointestinal : see HPI Genitourinary : NO Dysuria, No Urinary Frequency, No Hematuria, No Urgency Musculoskeletal : No joint pain, No Myalgias, No Joint Swelling, paraplegic Skin : No Skin Lesions, No rash Neuro : + Weakness, No Numbness, No Dizziness, No Headache Psych : No Anxiety/Panic, No Depression Heme/Lymph: No Bruising, No Lymphadenopathy Endocrine : No Polyuria, No Polydipsia All other systems reviewed and are negative. [facility] Past Medical History Medical History Decubitus ulcer of right ischial tuberosity region Diabetes HTN (hypertension) Hx pulmonary embolism Osteomyelitis Osteomyelitis of left foot Paraplegia Right foot infection (Unknown) Family History Family History Father No problems noted. Mother No problems noted. Brother No problems noted. Sister No problems noted. Sister No problems noted. Sister No problems noted. Son No problems noted. Son No problems noted. Son No problems noted. Son No problems noted. Daughter No problems noted. Daughter No problems noted. Pertinent family history: as above Surgical History Surgical History History of spinal surgery Hx of colonoscopy Hx of foot surgery Social History Social History Household Members: Significant Other Household Members Other:: roommate Housing: House Do you presently have visiting nurse or other home services: Yes Alcohol intake: never Patient Tobacco Use Status: Never used Tobacco Second Hand Smoke Exposure: No service: No Current occupational status: disabled Meds Allergies Allergy/AdvReac Type Severity Reaction Status Date / Time levofloxacin [From LEVAQUIN] Allergy Intermediate HIVES, Verified 03/31/21 08:38 SKIN RASH seafood Allergy Intermediate Itching Verified 03/31/21 08:38 throat shellfish derived Allergy Intermediate itching Verified 03/31/21 08:38 throat Active Medications: Current Medications Acetaminophen (Acetaminophen 325 Mg Tablet) 650 mg PO Q6H PRN PRN Reason: Pain, Mild (Pain Scale 1-3) Baclofen (Baclofen 20 Mg Tablet) 40 mg PO BID COUNTS INCLUDE 234 BEDS AT THE [facility] Last Admin: 04/09/21 20:59 Dose: 40 mg Documented by: Dextrose (Dextrose 50 % 25 Gm/50 Ml Vial) 25 gm IVPUSH Q15M PRN; Protocol PRN Reason: per Hypoglycemia Standing Ord. Gabapentin (Gabapentin 600 Mg Tablet) 600 mg PO BID COUNTS INCLUDE 234 BEDS AT THE [facility] Last Admin: 04/09/21 20:59 Dose: 600 mg Documented by: Glucose (Glucose Gel 15 Gm Gel..Gram.) 15 gm PO Q15M PRN; Protocol PRN Reason: per Hypoglycemia Standing Ord. Dextrose/Sodium Chloride (D51/2ns) 1,000 mls @ 50 mls/hr IVCONT .Q20H COUNTS INCLUDE 234 BEDS AT THE [facility] Last Admin: 04/09/21 17:30 Dose: 50 mls/hr Documented by: Insulin Glargine (Insulin Glargine,Hum.Rec.Anlog 100 Unit/Ml 10 Ml Vial) 15 unit SUBCUT BEDTIME COUNTS INCLUDE 234 BEDS AT THE [facility] Last Admin: 04/09/21 20:59 Dose: 15 unit Documented by: Insulin Human Lispro (Insulin Lispro 100 Unit/Ml 3 Ml Vial) 0 unit SUBCUT QIDACHS COUNTS INCLUDE 234 BEDS AT THE [facility]; Protocol Last Admin: 04/09/21 21:00 Dose: Not Given Documented by: Latanoprost (Latanoprost 0.005 % Ophth [place] 2.5 Ml Drops) 1 drop EYE-BOTH B EDTIME COUNTS INCLUDE 234 BEDS AT THE [facility] Last Admin: 04/09/21 21:00 Dose: Not Given Documented by: Melatonin (Melatonin 3 Mg Tablet) 6 mg PO BEDTIME PRN PRN Reason: Insomnia Pantoprazole Sodium (Pantoprazole Sodium 40 Mg/10 Ml Vial) 40 mg IVPUSH DAILY@0630 COUNTS INCLUDE 234 BEDS AT THE [facility] Last Admin: 04/10/21 06:01 Dose: 40 mg Documented by: Senna (Sennosides 8.6 Mg Tablet) 17.2 mg PO BEDTIME PRN PRN Reason: Constipation Sodium Chloride (0.9 % Sodium Chloride Flush 3 Ml Syringe) 3 ml IVFLUSH QSHIFT COUNTS INCLUDE 234 BEDS AT THE [facility] Last Admin: 04/10/21 00:18 Dose: Not Given Documented by: Home Medications Medication Instructions Recorded Confirmed Last Taken Type gabapentin 800 mg tablet 800 mg PO BID 02/22/20 04/09/21 03/02/21 History lisinopril 5 mg tablet 5 mg PO DAILY 02/22/20 04/09/21 03/02/21 History metformin 1,000 mg tablet 1,000 mg PO BID 02/22/20 04/09/21 03/02/21 History aspirin 81 mg tablet,delayed 1 tab PO DAILY 09/04/20 04/09/21 03/02/21 History release apixaban 5 mg tablet (Eliquis) 1 tab PO BID 03/03/21 04/09/21 03/02/21 History baclofen 20 mg tablet 2 tab PO BID 03/03/21 04/09/21 03/02/21 History diclofenac sodium 1 % topical gel 2 g TOPICAL TID-QID 03/03/21 04/09/21 03/02/21 History insulin glargine 100 unit/mL (3 20 unit SUBCUT DAILY 03/03/21 04/09/21 03/02/21 History mL) subcutaneous pen (Lantus Solostar U-100 Insulin) latanoprost 0.005 % eye drops 1 drp OPHTHALMIC (EYE) BEDTIME 03/03/21 04/09/21 Unknown History Physical Exam Vital Signs: Vital Signs: Last Vital Signs Temp 98.3 F 04/10/21 02:03 Pulse 83 04/10/21 06:14 Resp 18 04/10/21 06:14 BP 108/50 L 04/10/21 06:14 Pulse Ox 95 04/10/21 06:14 Body Mass Index 22.5 Other:?Constitutional : Alert, oriented, not in distress Neck : Normal inspection, Supple Cardiovascular : RRR, S1 S2, no lower extremity edema Respiratory : Good bilateral air entry,? no crackles, wheezes or rhonchi Gastrointestinal:? soft, lax, Normal bowel sounds, Non tender Skin : Warm, Dry, decubitus ulcer stage IV covered with dressing with no surrounding erythema Neurological : Alert & oriented x3, paraplegia MS: leg weakness Psych: approriate affect Const: Other: Constitutional : Alert, oriented, not in distress Neck : Normal inspection, Supple Cardiovascular : RRR, S1 S2, no lower extremity edema Respiratory : Good bilateral air entry, no crackles, wheezes or rhonchi Gastrointestinal: soft, lax, Normal bowel sounds, Non tender Skin : Warm, Dry, decubitus ulcer stage III covered with dressing with no surrounding erythema Decubitus ulcer Neurological : Alert & oriented x3, paraplegia Results Labs CBC & Chem 7: 04/10/21 05:57 04/09/21 08:47 Labs: Short CBC 04/09/21 04/10/21 Range/Units 08:47 05:57 WBC 5.0 4.8 (4.8-10.8) X10*3/uL Hgb 8.5 L 8.5 L (14.0-18.0) g/dl Hct 27.6 L 27.8 L (42.0-52.0) % Plt Count 346 375 (160-400) X10*3/uL BMP 04/09/21 08:47 Sodium 139 Potassium 4.3 Chloride 106 Carbon Dioxide 26 BUN 12 Creatinine 0.63 Calcium 8.9 Microbiology Microbiology Results: Microbiology 04/08/21 19:11 Urine clean catch - Clean Catch Midstream Urine Culture - Preliminary Assessment and Plan (1) Acute on chronic anemia: Status: Acute 1/ Acute on chronic anemia, maybe due to mucosal losses due to eliquis nilesh given hx of sacral ulcer, ddx: malabsorption, AVm, dieulafoy, esophagitis, gastritis PLAN: 1/ EGD today for further assessment 2/ may take D2 bx to r/o enteropathy, nilesh celiac if no obvious lesions seen 3/ check iron, b12, folic acid, haptoglobin, peripheral smear, LDH, per test 4/ mutlivitamin Procedures Date of Service Date of Service: 04/10/21
[2021-04-10 07:18] LABS: Glucose, Whole Blood 181 mg/dL (60-115)
[2021-04-10] MEDS: Insulin Lispro 100 UNIT/ML 3 ML VIAL SUBCUT (08:10)
[2021-04-10] MEDS: Baclofen 20 MG TABLET 40 MG PO (08:10)
[2021-04-10] MEDS: Gabapentin 600 MG TABLET PO (08:10)
--- NOTE | 2021-04-10 10:30 | P.PNIM_ITS ---
Subjective Subjective Date of Service: 04/10/21 Interval History: the patient was seen and evaluated this morning Laying in bed, feels more comfortable denies any bleeding or noticing a blood Hemoglobin stable Denies any fever, chills or shortness of breath No reported other overnight events. Systemic review: No fever, chills or weakness No chest pain, palpitation No shortness of breath or coughing No abdominal pain, nausea or vomiting No urinary symptoms No any rash or wounds Physical Exam Vital Signs: Vital Signs: Last Vital Signs Temp 97 F 04/10/21 08:00 Pulse 78 04/10/21 08:00 Resp 20 04/10/21 08:00 BP 103/54 L 04/10/21 08:00 Pulse Ox 94 04/10/21 08:00 Body Mass Index 22.5 Const: Other: Constitutional : Alert, oriented, not in distress Neck : Normal inspection, Supple Cardiovascular : RRR, S1 S2, no lower extremity edema Respiratory : Good bilateral air entry, no crackles, wheezes or rhonchi Gastrointestinal: soft, lax, Normal bowel sounds, Non tender Skin : Warm, Dry, decubitus ulcer stage IV covered with dressing with no surrounding erythema Decubitus ulcer Neurological : Alert & oriented x3, paraplegia Objective Data Active Medications Acetaminophen (Acetaminophen 325 Mg Tablet) 650 mg PO Q6H PRN PRN Reason: Pain, Mild (Pain Scale 1-3) Baclofen (Baclofen 20 Mg Tablet) 40 mg PO BID [facility] Last Admin: 04/10/21 08:10 Dose: 40 mg Documented by: KAYLEE Dextrose (Dextrose 50 % 25 Gm/50 Ml Vial) 25 gm IVPUSH Q15M PRN; Protocol PRN Reason: per Hypoglycemia Standing Ord. Gabapentin (Gabapentin 600 Mg Tablet) 600 mg PO BID [facility] Last Admin: 04/10/21 08:10 Dose: 600 mg Documented by: KAYLEE Glucose (Glucose Gel 15 Gm Gel..Gram.) 15 gm PO Q15M PRN; Protocol PRN Reason: per Hypoglycemia Standing Ord. Dextrose/Sodium Chloride (D51/2ns) 1,000 mls @ 50 mls/hr IVCONT .Q20H [facility] Last Admin: 04/09/21 17:30 Dose: 50 mls/hr Documented by: USMAN Insulin Glargine (Insulin Glargine,Hum.Rec.Anlog 100 Unit/Ml 10 Ml Vial) 15 unit SUBCUT BEDTIME [facility] Last Admin: 04/09/21 20:59 Dose: 15 unit Documented by: USMAN Insulin Human Lispro (Insulin Lispro 100 Unit/Ml 3 Ml Vial) 0 unit SUBCUT QIDACHS [facility]; Protocol Last Admin: 04/10/21 08:10 Dose: 2 unit Documented by: KAYLEE Latanoprost (Latanoprost 0.005 % Ophth Tatianna 2.5 Ml Drops) 1 drop EYE-BOTH BEDTIME [facility] Last Admin: 04/09/21 21:00 Dose: Not Given Documented by: USMAN Non-Admin Reason: See Note Melatonin (Melatonin 3 Mg Tablet) 6 mg PO BEDTIME PRN PRN Reason: Insomnia Pantoprazole Sodium (Pantoprazole Sodium 40 Mg/10 Ml Vial) 40 mg IVPUSH DAILY@0630 [facility] Last Admin: 04/10/21 06:01 Dose: 40 mg Documented by: BARRINGTONFIA Senna (Sennosides 8.6 Mg Tablet) 17.2 mg PO BEDTIME PRN PRN Reason: Constipation Sodium Chloride (0.9 % Sodium Chloride Flush 3 Ml Syringe) 3 ml IVFLUSH QSHIFT [facility] Last Admin: 04/10/21 08:10 Dose: Not Given Documented by: KAYLEE Non-Admin Reason: IV Running Labs CBC & Chem 7: 04/10/21 05:57 04/09/21 08:47 Labs: Laboratory Results - last 24 hr 04/08/21 04/09/21 04/09/21 16:04 11:37 16:43 MCV MCH MCHC RDW Plt Count MPV Absolute Nucleated RBC Nucleated RBC % (auto) POC Glucose 104 243 H Crossmatch See Detail 04/09/21 04/10/21 04/10/21 20:58 05:57 07:08 MCV 84.0 MCH 25.7 L MCHC 30.6 L RDW 17.5 H Plt Count 375 MPV 9.1 L Absolute Nucleated RBC 0.000 Nucleated RBC % (auto) 0.0 POC Glucose 156 H 181 H Crossmatch Microbiology Microbiology Results: Microbiology 04/08/21 19:11 Urine Culture - Final Urine clean catch - Clean Catch Midstream Assessment and Plan Assessment and Plan: 66-year-old male with a past medical history of hypertension, hyperlipidemia, diabetes, [id number], history of osteomyelitis, history of 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 Noted to have guaiac-positive stool. Admitted to the hospital for further management. Acute on chronic blood loss anemia Positive occult blood Continue IV ppi Hemoglobin 8.5 after 1 unit transfusion Gastrology input appreciated, for EGD today Monitor H& H. decubitus ulcer stage IV Stable, chronic, [facility]patient follow-up with his vascular surgeon. wound team evaluation History of diabetes Insulin sliding scale History of a venous thromboembolism Home Eliquis on hold until cleared by Gastroenterology. DVT prophylaxis Eliquis on hold secondary to concerns for bleeding. SCDs Quality Stroke Does the patient have a stroke diagnosis?: No VTE Prior VTE?: No VTE Risk Level:: Medical - moderate - high VTE Device Contraindication: Treatment Not Indicated VTE Drug Contraindication: Treatment Not Indicated
--- NOTE | 2021-04-10 11:18 | HO.ANESPROP2 ---
[facility] Active Problems Active Problems: All Active Problems (Updated 04/09/21 @ 12:14 by Aguila Allen MD) Acute on chronic anemia (Acute) GI bleed (Acute) Signs and symptoms of anemia (Acute) Anemia (Acute) Decubital ulcer (Acute) Catheter-associated urinary tract infection (Acute) Decubitus ulcer of right ischial tuberosity region (Acute) Osteomyelitis (Acute) Right foot infection (Acute Unknown) Colon cancer screening (Acute) Positive colorectal cancer screening using Cologuard test (Acute) Paraplegia (Acute) Hypertension (Acute) Traumatic injury of back (Acute) NIDDY (non-insulin dependent diabetes mellitus in young) (Acute) History of pulmonary embolism (Acute) Osteomyelitis of left foot (Acute) Past Medical History Medical History Decubitus ulcer of right ischial tuberosity region Diabetes HTN (hypertension) Hx pulmonary embolism Osteomyelitis Osteomyelitis of left foot Paraplegia Right foot infection (Unknown) Functional capacity: bed bound Family History Family History Father No problems noted. Mother No problems noted. Brother No problems noted. Sister No problems noted. Sister No problems noted. Sister No problems noted. Son No problems noted. Son No problems noted. Son No problems noted. Son No problems noted. Daughter No problems noted. Daughter No problems noted. Family history of problems with anesthesia: No Surgical History Surgical History History of spinal surgery Hx of colonoscopy Hx of foot surgery History of Problems with Anesthesia: No Social History Social History Household Members: Significant Other Household Members Other:: roommate Housing: House Do you presently have visiting nurse or other home services: Yes Alcohol intake: never Patient Tobacco Use Status: Never used Tobacco Second Hand Smoke Exposure: No service: No Current occupational status: disabled Meds Allergies Allergy/AdvReac Type Severity Reaction Status Date / Time levofloxacin [From LEVAQUIN] Allergy Intermediate HIVES, Verified 03/31/21 08:38 SKIN RASH seafood Allergy Intermediate Itching Verified 03/31/21 08:38 throat shellfish derived Allergy Intermediate itching Verified 03/31/21 08:38 throat Active Medications: Current Medications Acetaminophen (Acetaminophen 325 Mg Tablet) 650 mg PO Q6H PRN PRN Reason: Pain, Mild (Pain Scale 1-3) Baclofen (Baclofen 20 Mg Tablet) 40 mg PO BID [facility] Last Admin: 04/10/21 08:10 Dose: 40 mg Documented by: Dextrose (Dextrose 50 % 25 Gm/50 Ml Vial) 25 gm IVPUSH Q15M PRN; Protocol PRN Reason: per Hypoglycemia Standing Ord. Gabapentin (Gabapentin 600 Mg Tablet) 600 mg PO BID [facility] Last Admin: 04/10/21 08:10 Dose: 600 mg Documented by: Glucose (Glucose Gel 15 Gm Gel..Gram.) 15 gm PO Q15M PRN; Protocol PRN Reason: per Hypoglycemia Standing Ord. Dextrose/Sodium Chloride (D51/2ns) 1,000 mls @ 50 mls/hr IVCONT .Q20H [facility] Last Admin: 04/09/21 17:30 Dose: 50 mls/hr Documented by: Insulin Glargine (Insulin Glargine,Hum.Rec.Anlog 100 Unit/Ml 10 Ml Vial) 15 unit SUBCUT BEDTIME [facility] Last Admin: 04/09/21 20:59 Dose: 15 unit Documented by: Insulin Human Lispro (Insulin Lispro 100 Unit/Ml 3 Ml Vial) 0 unit SUBCUT QIDACHS [facility]; Protocol Last Admin: 04/10/21 08:10 Dose: 2 unit Documented by: Latanoprost (Latanoprost 0.005 % Ophth Tatianna 2.5 Ml Drops) 1 drop EYE-BOTH BEDTIME [facility] Last Admin: 04/09/21 21:00 Dose: Not Given Documented by: Melatonin (Melatonin 3 Mg Tablet) 6 mg PO BEDTIME PRN PRN Reason: Insomnia Pantoprazole Sodium (Pantoprazole Sodium 40 Mg/10 Ml Vial) 40 mg IVPUSH DAILY@0630 [facility] Last Admin: 04/10/21 06:01 Dose: 40 mg Documented by: Senna (Sennosides 8.6 Mg Tablet) 17.2 mg PO BEDTIME PRN PRN Reason: Constipation Sodium Chloride (0.9 % Sodium Chloride Flush 3 Ml Syringe) 3 ml IVFLUSH QSHIFT [facility] Last Admin: 04/10/21 08:10 Dose: Not Given Documented by: Home Medications Medication Instructions Recorded Confirmed Last Taken Type gabapentin 800 mg tablet 800 mg PO BID 02/22/20 04/09/21 03/02/21 History lisinopril 5 mg tablet 5 mg PO DAILY 02/22/20 04/09/21 03/02/21 History metformin 1,000 mg tablet 1,000 mg PO BID 02/22/20 04/09/21 03/02/21 History aspirin 81 mg tablet,delayed 1 tab PO DAILY 09/04/20 04/09/21 03/02/21 History release apixaban 5 mg tablet (Eliquis) 1 tab PO BID 03/03/21 04/09/21 03/02/21 History baclofen 20 mg tablet 2 tab PO BID 03/03/21 04/09/21 03/02/21 History diclofenac sodium 1 % topical gel 2 g TOPICAL TID-QID 03/03/21 04/09/21 03/02/21 History insulin glargine 100 unit/mL (3 20 unit SUBCUT DAILY 03/03/21 04/09/21 03/02/21 History mL) subcutaneous pen (Lantus Solostar U-100 Insulin) latanoprost 0.005 % eye drops 1 drp OPHTHALMIC (EYE) BEDTIME 03/03/21 04/09/21 Unknown History Exam Exam Date and Time: April 10, 2021 1118 Height,Weight and Vital Signs: Height 6 ft 3 in Weight 81.647 kg Last Vital Signs Temp 97 F 04/10/21 08:00 Pulse 78 04/10/21 08:00 Resp 20 04/10/21 08:00 BP 103/54 L 04/10/21 08:00 Pulse Ox 94 04/10/21 08:00 Pertinent Lab Results Pertinent Lab Results: Laboratory Tests 04/08/21 04/08/21 04/08/21 16:04 16:04 16:04 WBC 7.6 RBC 3.39 L Hgb 8.4 L Hct 27.6 L MCV 81.4 MCH 24.8 L MCHC 30.4 L RDW 16.3 H Plt Count 407 H D MPV 9.2 L Immature Gran % (Auto) 0.3 Neut % (Auto) 72.0 Lymph % (Auto) 18.[address] [place] % (Auto) 5.8 Eos % (Auto) 2.5 Baso % (Auto) 0.7 Lymph # (Auto) 1.4 [place] # (Auto) 0.4 Eos # (Auto) 0.2 Baso # (Auto) 0.1 Abs Immat Gran (auto) 0.02 Absolute Neuts (auto) 5.5 Absolute Nucleated RBC 0.000 Nucleated RBC % (auto) 0.0 Sodium 139 Potassium 4.8 Chloride 104 Carbon Dioxide 25 Anion Gap 15 BUN 14 Creatinine 0.76 Estim Creat Clear Calc 110.4 Estimated GFR > 60 POC Glucose Random Glucose 212 H D Calcium 9.1 Urine Color Urine Appearance Urine pH Ur Specific [place] Urine Protein Urine Glucose (UA) Urine Ketones Urine Blood Urine Nitrite Ur Leukocyte Esterase Urine RBC Urine WBC Ur Squamous Epith Cells Triple Phos Crystals Urine Bacteria Stool Occult Blood COVID-19 ([facility]) COVID-19 Clin Com Blood Type O Positive Antibody Screen NEGATIVE Crossmatch See Detail 04/08/21 04/08/21 04/08/21 19:11 20:00 21:47 WBC RBC Hgb Hct MCV MCH MCHC RDW Plt Count MPV Immature Gran % (Auto) Neut % (Auto) Lymph % (Auto) [place] % (Auto) Eos % (Auto) Baso % (Auto) Lymph # (Auto) [place] # (Auto) Eos # (Auto) Baso # (Auto) Abs Immat Gran (auto) Absolute Neuts (auto) Absolute Nucleated RBC Nucleated RBC % (auto) Sodium Potassium Chloride Carbon Dioxide Anion Gap BUN Creatinine Estim Creat Clear Calc Estimated GFR POC Glucose Random Glucose Calcium Urine Color YELLOW Urine Appearance HAZY Urine pH 8.5 H Ur Specific [place] 1.010 Urine Protein TRACE Urine Glucose (UA) NEG Urine Ketones NEG Urine Blood NEG Urine Nitrite POS H Ur Leukocyte Esterase 1+ H Urine RBC 0-2 Urine WBC 5-9 H Ur Squamous Epith Cells NONE Triple Phos Crystals 3+ Urine Bacteria 2+ Stool Occult Blood POSITIVE COVID-19 ([facility]) Negative COVID-19 Clin Com See Note Blood Type Antibody Screen Crossmatch 04/08/21 04/09/21 04/09/21 22:36 07:59 08:47 WBC 5.0 RBC 3.37 L Hgb 8.5 L Hct 27.6 L MCV 81.9 MCH 25.2 L MCHC 30.8 L RDW 17.3 H Plt Count 346 MPV 8.8 L Immature Gran % (Auto) 0.2 Neut % (Auto) 52.7 Lymph % (Auto) 34.1 [place] % (Auto) 8.6 Eos % (Auto) 3.6 Baso % (Auto) 0.8 Lymph # (Auto) 1.7 [place] # (Auto) 0.4 Eos # (Auto) 0.2 Baso # (Auto) 0.0 Abs Immat Gran (auto) 0.01 Absolute Neuts (auto) 2.6 Absolute Nucleated RBC 0.000 Nucleated RBC % (auto) 0.0 Sodium Potassium Chloride Carbon Dioxide Anion Gap BUN Creatinine Estim Creat Clear Calc Estimated GFR POC Glucose 174 H 133 H Random Glucose Calcium Urine Color Urine Appearance Urine pH Ur Specific [place] Urine Protein Urine Glucose (UA) Urine Ketones Urine Blood Urine Nitrite Ur Leukocyte Esterase Urine RBC Urine WBC Ur Squamous Epith Cells Triple Phos Crystals Urine Bacteria Stool Occult Blood COVID-19 ([facility]) COVMediWound Blood Type Antibody Screen Crossmatch 04/09/21 04/09/21 04/09/21 08:47 11:37 16:43 WBC RBC Hgb Hct MCV MCH MCHC RDW Plt Count MPV Immature Gran % (Auto) Neut % (Auto) Lymph % (Auto) [place] % (Auto) Eos % (Auto) Baso % (Auto) Lymph # (Auto) [place] # (Auto) Eos # (Auto) Baso # (Auto) Abs Immat Gran (auto) Absolute Neuts (auto) Absolute Nucleated RBC Nucleated RBC % (auto) Sodium 139 Potassium 4.3 Chloride 106 Carbon Dioxide 26 Anion Gap 11 L BUN 12 Creatinine 0.63 Estim Creat Clear Calc 133.1 Estimated GFR > 60 POC Glucose 104 243 H Random Glucose 133 H D Calcium 8.9 Urine Color Urine Appearance Urine pH Ur Specific [place] Urine Protein Urine Glucose (UA) Urine Ketones Urine Blood Urine Nitrite Ur Leukocyte Esterase Urine RBC Urine WBC Ur Squamous Epith Cells Triple Phos Crystals Urine Bacteria Stool Occult Blood COVID-19 ([facility]) COVID-[employer] Blood Type Antibody Screen Crossmatch 04/09/21 04/10/21 04/10/21 20:58 05:57 07:08 WBC 4.8 RBC 3.31 L Hgb 8.5 L Hct 27.8 L MCV 84.0 MCH 25.7 L MCHC 30.6 L RDW 17.5 H Plt Count 375 MPV 9.1 L Immature Gran % (Auto) Neut % (Auto) Lymph % (Auto) [place] % (Auto) Eos % (Auto) Baso % (Auto) Lymph # (Auto) [place] # (Auto) Eos # (Auto) Baso # (Auto) Abs Immat Gran (auto) Absolute Neuts (auto) Absolute Nucleated RBC 0.000 Nucleated RBC % (auto) 0.0 Sodium Potassium Chloride Carbon Dioxide Anion Gap BUN Creatinine Estim Creat Clear Calc Estimated GFR POC Glucose 156 H 181 H Random Glucose Calcium Urine Color Urine Appearance Urine pH Ur Specific [place] Urine Protein Urine Glucose (UA) Urine Ketones Urine Blood Urine Nitrite Ur Leukocyte Esterase Urine RBC Urine WBC Ur Squamous Epith Cells Triple Phos Crystals Urine Bacteria Stool Occult Blood COVID-19 ([facility]) COVID-19 Clin Com Blood Type Antibody Screen Crossmatch Airway Mallampati Class: II TM Dist: >3cm Neck ROM: Full Denture: Upper and Lower Heart: RRR Lungs: CTA Assessment and Plan Assessment Anesthesia Assessment: Anesthesia Plan Discussed Final Anesthetic Review Family History of Problems with Anesthesia: No History of Problems with Anesthesia: No ASA Class: II Patient Risk: Low Procedure Risk: Low Anesthetic Plan Anesthetic Plan: MAC: Disposition: Standard PACU
--- NOTE | 2021-04-10 11:32 | MHC.SHP ---
Pre-Procedural Eval Section A Date of Service: 04/10/21 The patient is an INPATIENT: Yes The History & Physical has been completed within 30 days and I have reviewed it.: Yes Section B Chief Complaint: gi bleed Allergies: Allergies Allergy/AdvReac Type Severity Reaction Status Date / Time levofloxacin [From LEVAQUIN] Allergy Intermediate HIVES, Verified 03/31/21 08:38 SKIN RASH seafood Allergy Intermediate Itching Verified 03/31/21 08:38 throat shellfish derived Allergy Intermediate itching Verified 03/31/21 08:38 throat Plan Diagnosis/Plan: Unchanged I have reviewed the history and physical and performed a pertinent physical examination on my patient. No changes have occurred unless specified.
--- NOTE | 2021-04-10 11:55 | PM.OP ---
Brief Operative Note Date of Service: 04/10/21 Pre-op diagnosis: anemia Post-op diagnosis: same Procedure: see op note Surgeon: Nisa Dawson MD Anesthesia: MAC Was an Truck Jumper used for this Procedure?: No Estimated blood loss (mL): 0 Condition: stable Disposition: PACU
--- NOTE | 2021-04-10 11:56 | W.PM.OPN ---
Operative Note Operative Note Date of Service: 04/10/21 Narrative: Procedure Description: EGD FLEXIBLE TRANSORAL UPPER GASTROINTESTINAL ENDOSCOPY UPPER ENDOSCOPY Consent: Indications for the procedure and potential complications of bleeding, perforation, reaction to medications and missed diagnosis were discussed with the patient and informed consent was obtained. Instrument: Olympus GIF H 190 J mid size upper endoscope Monitoring: Vital signs and clinical assessment, continuous EKG monitoring, Pulse oximetry, Carbon Dioxide monitoring and blood pressure monitoring were done throughout the procedure. Procedure: The patient was placed in the left lateral decubitis position and pre-procedure medications were administered and a bite block was placed. The endoscope was inserted into the mouth and advanced under direct vision to the third part of duodenum. A careful inspection was made as the upper endoscope was withdrawn including a retroflexed examination of the proximal stomach; Findings and interventions are described below. Findings: Larynx:normal Esophagus: GE junction at 45 cm, diaphragm hiatus at 45 cm, few tongues of salmon pink tissue, appeared to be short segment barretts, bx taken Stomach: Patchy gastric erythema. Biopsies were obtained. Grade 2 flap valve on retroflexed examination of the cardia. Few fundic gland polyps noted Duodenum: Normal bulb and descending duodenum, bx taken No bleeding or blood in lumen Intervention: Biopsies as noted above Impression/Findings: gastritis possible barretts fundic gland polyps PLAN: no evidence of upper Gi blood loss, maybe related to blood loss from sacral ulcer await bx--if h pylori pos then treat if barretts pos then repeat EGD in 6-12 months with WATS 3D can restart eliquis tomorrow
[2021-04-10 12:11] LABS: Glucose, Whole Blood 65 mg/dL (60-115)
--- NOTE | 2021-04-10 12:22 | P.DS_ITS ---
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 Patient reported that he had routine work done with PCP and was noted to have low hemoglobin and subsequently sent to the hospital for further evaluation.? Patient denies noting seeing any blood in the stool.? Denies any hematemesis.? Denies any chest pain palpitations lightheadedness or dizziness pain Denies any fever chills cough.? Reported that he has decubitus ulcer and is supposed to b getting wound vac from his physician.? Per ER team patient's hemoglobin was noted to be 8.4.? Stool guaiac was positive.? Admitted to the hospital for further management. Hospital course The patient was admitted to the hospital after receiving 1 unit transfusion in the emergency. Hemoglobin remained stable around 8.5 with no reported episodes of bleeding or blood per rectum. Started IV pantoprazole as gastroenterology evaluated him. An EGD was done showing no source of bleeding. Biopsies were taken for celiac disease and H pylori. The patient has chronic stage IV decubitus ulcer, dressing was placed, stable, to be followed by the wound care center. Recommendations to continue his home medications and follow-up with Gastroenterology as outpatient for the biopsy result. Time Spent with Patient Time attestation: Total time spent providing and/or coordinating discharge services: Discharge coordination time: Greater than 30 minutes Quality: Stroke Does the patient have a stroke diagnosis?: No Physical Exam Vital Signs: Vital Signs: Last Vital Signs Temp 97.5 F 04/10/21 12:15 Pulse 80 04/10/21 12:15 Resp 16 04/10/21 12:15 BP 117/63 04/10/21 12:15 Pulse Ox 100 04/10/21 12:15 Body Mass Index 22.5 Const: Other: Constitutional : Alert, oriented, not in distress Neck : Normal inspection, Supple Cardiovascular : RRR, S1 S2, no lower extremity edema Respiratory : Good bilateral air entry, no crackles, wheezes or rhonchi Gastrointestinal: soft, lax, Normal bowel sounds, Non tender Skin : Warm, Dry, decubitus ulcer stage IV covered with dressing with no surrounding erythema Decubitus ulcer Neurological : Alert & oriented x3, paraplegia DS: Data Data Completed and Pending Completed studies during hospitalization [Text1]: Procedures Excision of Left Upper Leg Subcutaneous Tissue and Fascia, Open Approach (03/02/21) Transfusion of Nonautologous Red Blood Cells into Peripheral Vein, Percutaneous Approach (03/02/21) Pending studies at discharge: Pending at discharge 04/10/21 11:56 Surgical [PTH] Routine Labs on day of discharge: Laboratory Results - last 24 hr 04/08/21 04/09/21 04/09/21 16:04 16:43 20:58 WBC RBC Hgb Hct MCV MCH MCHC RDW Plt Count MPV Absolute Nucleated RBC Nucleated RBC % (auto) POC Glucose 243 H 156 H Crossmatch See Detail 04/10/21 04/10/21 04/10/21 05:57 07:08 11:19 WBC 4.8 RBC 3.31 L Hgb 8.5 L Hct 27.8 L MCV 84.0 MCH 25.7 L MCHC 30.6 L RDW 17.5 H Plt Count 375 MPV 9.1 L Absolute Nucleated RBC 0.000 Nucleated RBC % (auto) 0.0 POC Glucose 181 H 65 Crossmatch Discharge Plan Discharge Patient Disposition: Home, Self-Care Discharge Diagnosis: Acute on chronic anemia Referrals: Jose Grayson MD [Primary Care Provider] - 1 Week Discharge Medications: Continued aspirin 81 mg tablet,delayed release (DR/EC) 1 tab PO DAILY RF: 0 Hold Instructions: Resume on 03/16/21. start after repeat cbc as per pcp /GI. Lantus Solostar U-100 Insulin 100 unit/mL (3 mL) insulin pen 20 unit subcut DAILY RF: 0 baclofen 20 mg tablet 2 tab PO BID RF: 0 diclofenac sodium 1 % gel 2 g topical TID-QID RF: 0 latanoprost 0.005 % drops 1 drp ophthalmic (eye) BEDTIME RF: 0 acetaminophen 325 mg Tablet 650 mg PO Q6H PRN (Reason: Pain, Mild (Pain Scale 1-3)) Qty: 20 RF: 0 omeprazole 20 mg Capsule,Delayed Release(Dr/Ec) 20 mg PO BID@0630,1630 Qty: 30 RF: 0 ferrous sulfate 325 mg (65 mg iron) tablet 325 mg PO DAILY 30 Days Qty: 30 RF: 6 lisinopril 5 mg tablet 5 mg PO DAILY RF: 0 gabapentin 800 mg tablet 800 mg PO BID RF: 0 metformin 1,000 mg tablet 1,000 mg PO BID RF: 0 Held Eliquis 5 mg tablet 1 tab PO BID RF: 0 Hold Instructions: Resume on 04/11/21. Discharge Orders: Discharge Order (Routine); Ordered 04/10/21 Ordered By: Aguila Allen Diet: advance to usual diet Activity on Discharge: As tolerated Stand Alone Forms: Patient Portal Discharge page Care Plan Goals: Read below Health Concerns: Read below Plan of Treatment: Read below Assessment: You were admitted to the hospital for evaluation of drop in your blood level. You received a unit of blood transfusion as your blood level remained stable around 8.5. Evaluated by advanced analytics associate who did an endoscopy showing no source of bleeding. You to continue home medications and to follow-up with Gastroenterology as outpatient to follow-up on the biopsy result
[2021-04-10 12:53] LABS: Glucose, Whole Blood 130 mg/dL (60-115)
--- NOTE | 2021-04-10 12:56 | MHC.CM.PN ---
Patient has been medically cleared for dc to home today.Patient was active with NA, who has been notified of today's dc.Last IMM addressed on 04/08/2021.
--- NOTE | 2021-04-10 13:06 | HO.POSTANES ---
Post Anesthesia Evaluation Post Anesthesia Evaluation Vital Signs: Vital Signs Temp Pulse Resp BP Pulse Ox 04/10/21 12:25 96 F L 75 20 110/55 L 96 04/10/21 12:15 97.5 F 80 16 117/63 100 04/10/21 12:00 97.5 F 78 16 111/63 100 04/10/21 08:00 97 F 78 20 103/54 L 94 04/10/21 06:14 83 18 108/50 L 95 04/10/21 02:03 98.3 F 80 16 113/66 97 Anesthesia: Monitored Pain Control: Satisfactory Nausea/Vomiting: None Hydration: Adequate Anesthesia-Related Issues: No Anes. Related Issues
--- NOTE | 2021-04-10 13:21 | MHC.CLN ---
NUTRITION CONSULT NUTRITION CONSULT FOR DECUBITUS ULCER, SACRUM. PATIENT REPORTS GOOD APPETITE. SUPPLEMENT NOT RECOMMENDED AT THIS TIME TO PREVENT WEIGHT GAIN. PATIENT IS WHEELCHAIR BOUND WITH NORMAL BMI. ENCOURAGE HIGH PROTEIN DIETARY CHOICES.
--- NOTE | 2021-04-10 15:34 | MHC.CM.PN ---
CM confirmed with Action/Dispatch/Amelie at [phone] that Patient cannot be transported by chair van in his own motorized w/c, nor could his motorized w/c travel in an ambulance, while Patient is on a stretcher.SUNNY spoke with Patient's Daughter/Lorene @ [phone], who indicated that family is not able to transport and that Patient typically transports via [facility].SUNNY has relayed this message to RN and informed her that CM has bus passes, if needed.
--- NOTE | 2021-04-12 09:09 | HO.POSTANES ---
Post Anesthesia Evaluation Post Anesthesia Evaluation Anesthesia: Monitored Mental Status: Awake Pain Control: Satisfactory Nausea/Vomiting: None Hydration: Adequate Anesthesia-Related Issues: No Anes. Related Issues
== END 2021-04-10 16:00 | disposition home health service (06) | DRG 377 ==
LOC: HO.ED 22:31 → HO.EDOVER 22:42 → HO.IMC 04-10 08:27
PROVIDERS: Internal Medicine Gastroenterology; Admitting Provider Hospitalist; Emergency Provider Student in an Organized Health Care Education/Training Program; PCP Internal Medicine; Visit Provider Student in an Organized Health Care Education/Training Program
PROC: 0DJ08ZZ Inspection of Upper Intestinal Tract, Via Natural or Artificial Opening Endoscopic (ICD-10-PCS; CPT 43235; principal; 2021-04-10 12:00)
DX: K29.71 Gastritis, unspecified, with bleeding (principal); L89.214 Pressure ulcer of right hip, stage 4; G82.20 Paraplegia, unspecified; D62 Acute posthemorrhagic anemia; K22.70 Barrett's esophagus without dysplasia; E78.5 Hyperlipidemia, unspecified; Z20.822 Contact with and (suspected) exposure to COVID-19; Z86.711 Personal history of pulmonary embolism; Z79.4 Long term (current) use of insulin; Z79.899 Other long term (current) drug therapy
CPT/HCPCS: 36415; 80048; 81001; 82272; 82947; 85025; 85027; 86850; 86900; 86901; 86923; 87086; 87635; 88305; 88342; 99285; P9016

== ENCOUNTER → 2021-04-15 12:43 | Outpatient (BNV) | payer MEDICARE, MEDICAID, SELFPAY | PROVIDERS: PCP Internal Medicine; Visit Provider Internal Medicine | DX: D64.9 Anemia, unspecified (principal) | CPT/HCPCS: 99203; 99213; 99214; G2211 ==

== ENCOUNTER → 2021-05-27 13:38 | Outpatient (BNVA) | payer MEDICARE, MEDICAID, SELFPAY | PROVIDERS: PCP Internal Medicine; Visit Provider Internal Medicine | DX: L89.229 Pressure ulcer of left hip, unspecified stage (principal); G82.20 Paraplegia, unspecified; Z99.3 Dependence on wheelchair | CPT/HCPCS: 99212 ==

== ENCOUNTER 2021-05-28 14:21 | Inpatient (IN) | payer MEDICARE, MEDICAID, SELFPAY ==
--- NOTE | ~2021-05-28 | MR_ITS ---
EXAMINATION: MR PELVIS WITHOUT AND WITH CONTRAST CLINICAL INFORMATION: History of wound, nonhealing, rule out osteomyelitis COMPARISON: MRI 03/06/2021 TECHNIQUE: MRI in a high-field magnet without and with contrast. 10 mL Gadavist. FINDINGS: There is a skin/soft tissue defect in the lower left buttock, inferior to the left ischial tuberosity. There is stranding, edema and enhancement extending from the wound to the region of the left ischial tuberosity, the common hamstring, and the soft tissues and muscles in the ischiofemoral space. There are nonenhancing tracks present in this region. Findings are compatible with cellulitis, myositis, and likely sinus tracts. No loculated drainable fluid collection is identified. There is abnormal edema and enhancement with low T1 signal in the left ischium and the posterior acetabulum, compatible with osteomyelitis. Left hip arthritis. No significant joint effusion is seen. No findings in the proximal femur to suggest osteomyelitis. There is heterogeneous marrow signal in the pelvis.. Extensive abnormal edema and enhancement within the adductor compartment muscles, ischiofemoral space, along the medial aspect of the proximal femur, compatible with myositis. There is partial tear of the left common hamstring tendon origin. Juarez catheter in the bladder. The bladder is nondistended and thick wall, with air within the bladder. No new mass or fluid collection in the pelvis. Enlarged left groin lymph nodes including lymph nodes measuring 1.2 cm in short axis. MR/MR pelvis wo/w con IMPRESSION: 1. Interval worsening of soft tissue ulceration and cellulitis inferior to the left ischial tuberosity.. This extends to the left ischial tuberosity, left ischiofemoral space, with nonenhancing areas likely reflecting sinus tracts. Interval worsening as compared to previous. 2. There is partial tearing of the left common hamstring tendon. There is extensive edema/enhancement indicative of myositis in the left adductor compartment, ischiofemoral space, and the muscles along the medial aspect of the proximal femur. Findings worsened from previous. 3. Abnormal edema and enhancement in the left ischium and left acetabulum, compatible with osteomyelitis. 4. Urinary bladder wall thickening, partial distention, air within the bladder. Juarez catheter present. Correlate with urinalysis. 4. Left groin enlarged lymph nodes, nonspecific, likely related to the infectious process.. The report will be called to the ordering clinician by a [facility] Physician Direct Support Professional Caregiver.
[2021-05-28 17:01] VITALS: BP 95/67; PULSE 95; RESP 20; TEMP 36.6; O2SAT 100; BMI 25.7
[2021-05-28 17:35] LABS: Hematocrit 23.7 % (42.0-52.0); Hemoglobin 7.1 g/dl (14.0-18.0); Mean Corpuscular Hemoglobin 23.5 pg (27.0-33.0); Mean Corpuscular Volume 78.5 fL (80.0-98.0); Mean Platelet Volume 8.7 fL (9.4-12.4); Platelet Count 574 X10*3/uL (160-400); Red Blood Count 3.02 X10*6/uL (4.60-5.80); Red Cell Distribution Width 17.9 % (11.0-16.0); White Blood Count 9.3 X10*3/uL (4.8-10.8)
[2021-05-28 17:42] LABS: Anion Gap 12 (12-20); Blood Urea Nitrogen 14 mg/dL (9-16); Carbon Dioxide 27 mmol/L (22-29); Chloride 99 mmol/L (96-108); Estimated Glomerular Filt Rate > 60; Glucose Random 206 mg/dL (60-115); Potassium 4.7 mmol/L (3.3-5.1); Sodium 133 mmol/L (135-145)
[2021-05-28 17:50] LABS: COVID-19 Test Negative (Negative); IDNOW Serial# 55D5AD1C
--- NOTE | 2021-05-28 18:05 | ED.GENADULT ---
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 in 1987 with deep ischial wound since 03/05 status post wound VAC she was placed on 03/19/21 sent from Wound Clinic for deeper infection with osteomyelitis of left ischial tuberosity failed oral antibiotics given for 2 weeks a week ago for IV antibiotics and admission patient is wheelchair-bound no fever had some chills yesterday no abdominal pain Related Data Home Medications Medication Instructions Recorded Confirmed gabapentin 800 mg tablet 800 mg PO BID 02/22/20 05/28/21 lisinopril 5 mg tablet 5 mg PO DAILY 02/22/20 05/28/21 metformin 1,000 mg tablet 1,000 mg PO BID 02/22/20 05/28/21 aspirin 81 mg tablet,delayed 1 tab PO DAILY 09/04/20 05/28/21 release apixaban 5 mg tablet (Eliquis) 1 tab PO BID 03/03/21 05/28/21 baclofen 20 mg tablet 2 tab PO TID 03/03/21 05/28/21 insulin glargine 100 unit/mL (3 20 unit SUBCUT BEDTIME 03/03/21 05/28/21 mL) subcutaneous pen (Lantus Solostar U-100 Insulin) latanoprost 0.005 % eye drops 1 drp OPHTHALMIC (EYE) BEDTIME 03/03/21 05/28/21 Previous Rx's Medication Instructions Recorded omeprazole 20 mg capsule,delayed 20 mg PO BID@0630,1630 #30 cap 03/09/21 release ferrous sulfate 325 mg (65 mg 325 mg PO BID #60 tab 04/15/21 iron) tablet (Iron (ferrous sulfate)) Allergies Allergy/AdvReac Type Severity Reaction Status Date / Time levofloxacin [From LEVAQUIN] Allergy Intermediate HIVES, Verified 05/27/21 13:58 SKIN RASH seafood Allergy Intermediate Itching Verified 05/27/21 13:58 throat shellfish derived Allergy Intermediate itching Verified 05/27/21 13:58 throat Review of Systems Review of Systems: Yes all other systems are reviewed and are negative PMFSH Past Medical History Medical History Decubitus ulcer of right ischial tuberosity region Diabetes HTN (hypertension) Hx pulmonary embolism Osteomyelitis Osteomyelitis of left foot Paraplegia Right foot infection (Unknown) Surgical History History of spinal surgery Hx of colonoscopy Hx of foot surgery Family History Family History Father No problems noted. Mother No problems noted. Brother No problems noted. Sister No problems noted. Sister No problems noted. Sister No problems noted. Son No problems noted. Son No problems noted. Son No problems noted. Son No problems noted. Daughter No problems noted. Daughter No problems noted. 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 Oriented X3. No acute distress. Eyes: pallor+ ENT: Pharynx normal. Oral Mucosa moist Neck: Normal inspection. Neck supple. CVS: Normal heart rate and rhythm. Pulses normal. Respiratory: No respiratory distress. Equal air entry bilateral, no wheezing/rales/rhonchi Abdomen: Soft and nontender. Bowel sounds are present, Skin: Skin warm and dry. Normal skin color. Normal skin turgor. Wound VAC on left ischial area Extremities: No lower extremity edema. No calf tenderness Neuro: Oriented X 3. Paraplegic Medical Decision Making MDM Narrative Medical decision making narrative: Patient has osteomyelitis of ischial tuberosity will admit patient for IV antibiotic surgery to follow Lab Data Lab results reviewed: Yes I reviewed the patient's lab results. Result diagrams: 05/28/21 17:13 05/28/21 17:13 Labs: Lab Results 05/28/21 05/28/21 05/28/21 Range/Units 17:13 17:13 17:13 WBC 9.3 (4.8-10.8) X10*3/uL RBC 3.02 L (4.60-5.80) X10*6/uL Hgb 7.1 L (14.0-18.0) g/dl Hct 23.7 L (42.0-52.0) % MCV 78.5 L (80.0-98.0) fL MCH 23.5 L (27.0-33.0) pg MCHC 30.0 L (31.0-36.0) g/dl RDW 17.9 H (11.0-16.0) % Plt Count 574 H (160-400) X10*3/uL MPV 8.7 L (9.4-12.4) fL Absolute Nucleated RBC 0.000 (0.0-0.012) X10*3/uL Nucleated RBC % (auto) 0.0 (0.0-0.2) /100WBC ESR (0-15) MM/HR Sodium 133 L (135-145) mmol/L Potassium 4.7 (3.3-5.1) mmol/L Chloride 99 (96-108) mmol/L Carbon Dioxide 27 (22-29) mmol/L Anion Gap 12 (12-20) BUN 14 (9-16) mg/dL Creatinine 0.67 (0.5-1.4) mg/dL Estim Creat Clear Calc 126.0 Estimated GFR > 60 Random Glucose 206 H D (60-115) mg/dL Lactic Acid (0.5-2.0) mmol/L Calcium 9.0 (8.4-10.2) mg/dL C-Reactive Protein 17.21 H (< or = 0.50) mg/dL COVID-19 ([facility]) Negative (Negative) COVID-19 Clin Com See Note 05/28/21 05/28/21 Range/Units 17:13 18:32 WBC (4.8-10.8) X10*3/uL RBC (4.60-5.80) X10*6/uL Hgb (14.0-18.0) g/dl Hct (42.0-52.0) % MCV (80.0-98.0) fL MCH (27.0-33.0) pg MCHC (31.0-36.0) g/dl RDW (11.0-16.0) % Plt Count (160-400) X10*3/uL MPV (9.4-12.4) fL Absolute Nucleated RBC (0.0-0.012) X10*3/uL Nucleated RBC % (auto) (0.0-0.2) /100WBC ESR 123 H (0-15) MM/HR Sodium (135-145) mmol/L Potassium (3.3-5.1) mmol/L Chloride (96-108) mmol/L Carbon Dioxide (22-29) mmol/L Anion Gap (12-20) BUN (9-16) mg/dL Creatinine (0.5-1.4) mg/dL Estim Creat Clear Calc Estimated GFR Random Glucose (60-115) mg/dL Lactic Acid 1.6 (0.5-2.0) mmol/L Calcium (8.4-10.2) mg/dL C-Reactive Protein (< or = 0.50) mg/dL COVID-19 ([facility]) (Negative) COVID-19 Clin Com Discharge Plan Discharge Clinical Impression: Wound cellulitis Osteomyelitis Qualifiers: Osteomyelitis type: subacute Osteomyelitis location: other site Qualified Code(s): M86.28 - Subacute osteomyelitis, other site Patient Disposition: Admitted As Inpatient
[2021-05-28 18:51] LABS: Lactic Acid 1.6 mmol/L (0.5-2.0)
--- NOTE | 2021-05-28 19:39 | PHA.MEDREC ---
Pharmacy Consult ? Medication Reconciliation Pharmacy has completed the medication reconciliation. No remarkable issues. Alison Monroe, NishaD
[2021-05-28 20:33] VITALS: BP 113/65; PULSE 95; RESP 16; TEMP 37.4; O2SAT 95
[2021-05-28 20:41] LABS: C Reactive Protein 17.21 mg/dL (< or = 0.50)
[2021-05-28] MEDS: Piperacillin Sodium/Tazobactam 3.375 GM in 0.9 % Sodium Chloride 50 ML IV (20:41)
[2021-05-28] MEDS: vancomycin HCL 1,000 MG in 0.9 % Sodium Chloride 250 ML 270 MG IV ×2 (21:33→23:36)
--- NOTE | 2021-05-28 21:50 | P.HPHOSP_ITS ---
History of Present Illness Date of Service: 05/28/21 Chief Complaint: non-healing wound Monegasque-speaking only, history is obtained with the help of educational interpreter 66-year-old male with past medical history of diabetes, hypertension, PE, osteomyelitis of the left foot, history of paraplegia, traumatic back injury, and decubitus ulcer of left ischial tuberosity region presents the hospital sent from wound clinic for treatment of nonhealing decubitus ulcer. He has had this deep ischial wound since 03/05 status post wound VAC and reports that he has been on antibiotics for 2 weeks but ran out and saw his infectious disease specialist on Tuesday and was asked to come to the hospital for IV antibiotics. pt denies any fever or chills. reports no significant pain, denies any sob, no cough, no chest pain, no abd pain, n/v, no urinary sx and no lower extremity edema. has chronic reno in place. on arrival to the ED pt's vitals within normal range labs are sig for WBC of 9.3, Hgb of 7.1 which chronic, hct of 23.7, ESR of 123, CRP of 17, COVID -ve, pt started on abx and will be admitted for further management Review of Systems Review of Systems: Yes all other systems are reviewed and are negative [facility] Medical History Decubitus ulcer of right ischial tuberosity region Diabetes HTN (hypertension) Hx pulmonary embolism Osteomyelitis Osteomyelitis of left foot Paraplegia Right foot infection (Unknown) Family History Father No problems noted. Mother No problems noted. Brother No problems noted. Sister No problems noted. Sister No problems noted. Sister No problems noted. Son No problems noted. Son No problems noted. Son No problems noted. Son No problems noted. Daughter No problems noted. Daughter No problems noted. 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) Alcohol intake: never Patient Tobacco Use Status: Never used Tobacco Second Hand Smoke Exposure: No Advance Directives: Yes Advance Directives on File: Yes Advance Directives Date on File: 03/10/21 service: No Current occupational status: disabled Meds Allergies Allergy/AdvReac Type Severity Reaction Status Date / Time levofloxacin [From LEVAQUIN] Allergy Intermediate HIVES, Verified 05/27/21 13:58 SKIN RASH seafood Allergy Intermediate Itching Verified 05/27/21 13:58 throat shellfish derived Allergy Intermediate itching Verified 05/27/21 13:58 throat Home Medications Medication Instructions Recorded Confirmed Last Taken Type gabapentin 800 mg tablet 800 mg PO BID 02/22/20 05/28/21 05/28/21 History lisinopril 5 mg tablet 5 mg PO DAILY 02/22/20 05/28/21 05/28/21 History metformin 1,000 mg tablet 1,000 mg PO BID 02/22/20 05/28/21 05/28/21 History aspirin 81 mg tablet,delayed 1 tab PO DAILY 09/04/20 05/28/21 05/28/21 History release apixaban 5 mg tablet (Eliquis) 1 tab PO BID 03/03/21 05/28/21 05/28/21 History baclofen 20 mg tablet 2 tab PO TID 03/03/21 05/28/21 05/28/21 History insulin glargine 100 unit/mL (3 20 unit SUBCUT BEDTIME 03/03/21 05/28/21 05/27/21 History mL) subcutaneous pen (Lantus Solostar U-100 Insulin) latanoprost 0.005 % eye drops 1 drp OPHTHALMIC (EYE) BEDTIME 03/03/21 05/28/21 05/27/21 History Physical Exam Vital Signs and Narrative: Vital Signs: Last Vital Signs Temp 99.3 F 05/28/21 20:33 Pulse 95 05/28/21 20:33 Resp 16 05/28/21 20:33 BP 113/65 05/28/21 20:33 Pulse Ox 95 05/28/21 20:33 BMI result Body Mass Index 25.7 Const: General: cooperative and no acute distress Orientation/consciousness: patient oriented x3 Eyes: General: appearance normal, both eyes and all related structures Pupils: Equal, round and reactive pupils present Resp: Effort & Inspection: normal respiratory effort Auscultation: clear to auscultation bilaterally Cardio: Rate: regular rate Rhythm: regular rhythm GI: Palpation (GI): Soft to palpation Auscultation: normal bowel sounds Back/Spine/Pelvis: Other: has wound vac in place on the left ischial region, no erythema, Neuro: General: patient oriented x3 Cranial nerves: Yes Equal, round and reactive pupils present Cognition (Neuro): normal cognition Extrem: General: Yes no pedal edema Results Labs CBC and Chem 7: 05/28/21 17:13 05/28/21 17:13 Labs: Laboratory Results - last 24 hr 05/28/21 05/28/21 05/28/21 17:13 17:13 17:13 MCV 78.5 L MCH 23.5 L MCHC 30.0 L RDW 17.9 H Plt Count 574 H MPV 8.7 L Absolute Nucleated RBC 0.000 Nucleated RBC % (auto) 0.0 Anion Gap 12 Estim Creat Clear Calc 126.0 Estimated GFR > 60 Random Glucose 206 H D Lactic Acid Calcium 9.0 C-Reactive Protein 17.21 H COVID-19 ([facility]) Negative COVID-19 Clin Com See Note 05/28/21 18:32 MCV MCH MCHC RDW Plt Count MPV Absolute Nucleated RBC Nucleated RBC % (auto) Anion Gap Estim Creat Clear Calc Estimated GFR Random Glucose Lactic Acid 1.6 Calcium C-Reactive Protein COVID-19 ([facility]) COVID-19 Clin Com Assessment and Plan (1) Decubital ulcer: Status: Acute (2) Osteomyelitis: Status: Acute (3) Elevated sed rate: Status: Acute 66 yo M with hx of DM, osteomylitis and now non-healing wound presents to the hospital, sent by wound clinic for IV abx # osteomyelitis of decubitus ulcer of ischial tuberosity - will start IV abx - has elevated sed rate and CRP - MRI in AM - consult to gen surg for possible debridement - Infectious ds consulted - will follow cultures - wund care consult # elevated sed rate - most likely 2/2 above # DM - hold oral antihyperglycemic - will continue home insulin - add LDSSI - diabetic diet # htn - stable - continue home meds DVT ppx: SCD in anticipation of surgical intervention Quality Stroke Does the patient have a stroke diagnosis?: No VTE Prior VTE?: No VTE Risk Level:: Medical - moderate - high VTE Device Contraindication: Treatment Not Indicated VTE Drug Contraindication: N/A - Med Ordered
[2021-05-28 22:45] LABS: Erythrocyte Sedimentation Rate 123 MM/HR (0-15)
--- NOTE | 2021-05-28 22:48 | PHA.PROG ---
Admission Date/Time: May 28, 2021 21:50 Indication: Weight in k.718 kg Serum Creatinine - Last 168 Hours 05/28/21 17:13 Creatinine 0.67 Estimated CrCl and GFR - Last 168 Hours 05/28/21 17:13 Estim Creat Clear Calc 126.0 Estimated GFR > 60 Vancomycin Loading Dose: 2000 Current Vancomycin Dosing Regimen: 1250 Q 12 Vancomycin Monitoring using AUC goal of 400 - 600 range with trough as surrogate marker: 492 Date and Time for next Vancomycin Level to be drawn: 05/29 @2100 Pharmacist Comments on Vancomycin Plan: Vancomycin dosing will take advantage of [employer] as a clinical decision support tool that uses Bayesian modeling to calculate individual patient's pharmacokinetic parameters and forecast the patient's drug concentration time course with the target goal AUC 24 range of 400 - 600 mg/L/hr.
--- NOTE | 2021-05-28 22:53 | PHA.PROG ---
Admission Date/Time: May 28, 2021 21:50 Indication: BONE AND JOINT Weight in k.718 kg Serum Creatinine - Last 168 Hours 05/28/21 17:13 Creatinine 0.67 Estimated CrCl and GFR - Last 168 Hours 05/28/21 17:13 Estim Creat Clear Calc 126.0 Estimated GFR > 60 Vancomycin Loading Dose: 2000 Current Vancomycin Dosing Regimen: 1750 Vancomycin Monitoring using AUC goal of 400 - 600 range with trough as surrogate marker: 467 Date and Time for next Vancomycin Level to be drawn: 05/30 @ 2100 Pharmacist Comments on Vancomycin Plan: Vancomycin dosing will take advantage of Prot-OnRX as a clinical decision support tool that uses Bayesian modeling to calculate individual patient's pharmacokinetic parameters and forecast the patient's drug concentration time course with the target goal AUC 24 range of 400 - 600 mg/L/hr.
[2021-05-28 23:00] LABS: Glucose, Whole Blood 185 mg/dL (60-115)
[2021-05-28] MEDS: Omeprazole 20 MG CAPSULE.DR PO (23:37)
[2021-05-28] MEDS: Ferrous Sulfate 324 MG TABLET.DR PO (23:37)
[2021-05-28] MEDS: Baclofen 20 MG TABLET 40 MG PO (23:37)
[2021-05-28] MEDS: Gabapentin 400 MG CAPSULE 800 MG PO (23:37)
[2021-05-28] MEDS: Insulin Glargine,Hum.rec.anlog 100 UNIT/ML 10 ML VIAL 20 UNIT SUBCUT (23:38)
[2021-05-29] VITALS (7 sets, daily range): BP systolic 94–110; BP diastolic 43–65; PULSE 74–95; RESP 15–20; TEMP 36.5–37.3; O2SAT 95–97; BMI 26.7
[2021-05-29] MEDS: Piperacillin Sodium/Tazobactam 3.375 GM in 0.9 % Sodium Chloride 50 ML IV ×4 (03:25→20:40)
[2021-05-29 06:36] LABS: MANUAL DIFF FLAG NO
[2021-05-29 06:41] LABS: Basophils Absolute Auto 0.1 X10*3/uL (0.0-0.2); Basophils Percent Auto 0.7 % (0-2); Eosinophils Absolute Auto 0.1 X10*3/uL (0.0-0.4); Eosinophils Percent Auto 1.7 % (0-4); Imm Gran Abs Auto 0.03 X10*3/uL (0.00-0.03); Imm Gran Pct Auto 0.4 % (0.0-0.4); Lymphocytes Absolute Auto 1.6 X10*3/uL (1.2-4.9); Lymphocytes Percent Auto 22.4 % (20-40); Mean Corpuscular HGB Conc 30.1 g/dl (31.0-36.0); Mean Corpuscular Hemoglobin 23.6 pg (27.0-33.0); Mean Corpuscular Volume 78.3 fL (80.0-98.0); Mean Platelet Volume 8.2 fL (9.4-12.4); Monocytes Absolute Auto 0.6 X10*3/uL (0.1-1.2); Monocytes Percent Auto 8.5 % (2-11); Neutrophils Absolute Auto 4.7 x10*3/uL (2.0-8.3); Neutrophils Percent Auto 66.3 % (45-73); Platelet Count 428 X10*3/uL (160-400); Red Blood Count 2.67 X10*6/uL (4.60-5.80); Red Cell Distribution Width 17.9 % (11.0-16.0); White Blood Count 7.1 X10*3/uL (4.8-10.8)
[2021-05-29 07:11] LABS: Blood Urea Nitrogen 12 mg/dL (9-16); Calcium 8.7 mg/dL (8.4-10.2); Creatinine Clr Calc Pharmacy 129.9; Estimated Glomerular Filt Rate > 60; Glucose Random 127 mg/dL (60-115)
[2021-05-29 07:12] LABS: Hemoglobin 6.3 g/dl (14.0-18.0)
[2021-05-29 07:13] LABS: Hematocrit 20.9 % (42.0-52.0)
[2021-05-29 07:34] LABS: Anion Gap 13 (12-20); Carbon Dioxide 25 mmol/L (22-29); Chloride 103 mmol/L (96-108); Potassium 4.5 mmol/L (3.3-5.1); Sodium 136 mmol/L (135-145)
[2021-05-29 08:12] LABS: Glucose, Whole Blood 111 mg/dL (60-115)
--- NOTE | 2021-05-29 08:40 | P.CONGS_ITS ---
History of Present Illness Consult details Consult date: 05/29/21 Narrative: 66-year-old male fitted for chronic wound on the left ischial tuberosity. 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 He actually has been followed for a left ischial tuberosity ulcer [facility] he had he has had a wound VAC and was sent to the ER by the [facility] because of what was said to be a need for IV antibiotics. He otherwise denies any significant complaints. He denies any fever or chills. He says he still has sensation on both lower extremities but denies any pain. Review of Systems Constitutional: Constitutional: Denies chills and Denies fever(s) Cardiovascular: Cardiovascular: Denies chest pain Respiratory: Respiratory: Denies cough Gastrointestinal: Gastrointestinal: Denies abdominal pain Musculoskeletal: Comments: Paraplegic times 23 years Neurologic: Comments: Paraplegic Psychiatric: Psychiatric: Denies depression PMFSH Past Medical History Medical History Decubitus ulcer of right ischial tuberosity region Diabetes HTN (hypertension) Hx pulmonary embolism Osteomyelitis Osteomyelitis of left foot Paraplegia Right foot infection (Unknown) Family History Family History Father No problems noted. Mother No problems noted. Brother No problems noted. Sister No problems noted. Sister No problems noted. Sister No problems noted. Son No problems noted. Son No problems noted. Son No problems noted. Son No problems noted. Daughter No problems noted. Daughter No problems noted. Surgical History Surgical History History of spinal surgery Hx of colonoscopy Hx of foot surgery Social History Social History Household Members: Spouse Household Members Other:: roommate Housing: Apartment Do you presently have visiting nurse or other home services: Yes ([employer]) Alcohol intake: never Patient Tobacco Use Status: Never used Tobacco Second Hand Smoke Exposure: No Advance Directives: Yes Advance Directives on File: Yes Advance Directives Date on File: 03/10/21 service: No Current occupational status: disabled Meds Allergies Allergy/AdvReac Type Severity Reaction Status Date / Time levofloxacin [From LEVAQUIN] Allergy Intermediate HIVES, Verified 05/27/21 13:58 SKIN RASH seafood Allergy Intermediate Itching Verified 05/27/21 13:58 throat shellfish derived Allergy Intermediate itching Verified 05/27/21 13:58 throat Active Medications: Current Medications Acetaminophen (Acetaminophen 325 Mg Tablet) 650 mg PO Q6H PRN PRN Reason: Pain, Mild (Pain Scale 1-3) Aspirin (Aspirin Enteric Coated 81 Mg Tablet.) 81 mg PO DAILY [facility] Baclofen (Baclofen 20 Mg Tablet) 40 mg PO TID [facility] Last Admin: 05/28/21 23:37 Dose: 40 mg Documented by: Dextrose (Dextrose 50 % 25 Gm/50 Ml Vial) 25 gm IVPUSH Q15M PRN; Protocol PRN Reason: per Hypoglycemia Standing Ord. Docusate Sodium (Docusate Sodium 100 Mg Capsule) 100 mg PO DAILY PRN PRN Reason: Constipation Ferrous Sulfate (Ferrous Sulfate 324 Mg Tablet.) 324 mg PO BID [facility] Last Admin: 05/28/21 23:37 Dose: 324 mg Documented by: Gabapentin (Gabapentin 400 Mg Capsule) 800 mg PO BID [facility] Last Admin: 05/28/21 23:37 Dose: 800 mg Documented by: Glucose (Glucose Gel 15 Gm Gel..Gram.) 15 gm PO Q15M PRN; Protocol PRN Reason: per Hypoglycemia Standing Ord. Piperacillin Sod/Tazobactam (Sod 3.375 gm/ Sodium Chloride) 50 mls @ 100 mls/hr IV Q6H [facility] Last Infusion: 05/29/21 03:58 Dose: Infused Documented by: Vancomycin HCl 1,000 mg/Vancomycin HCl 750 mg/ Sodium Chloride 535 mls @ 267.5 mls/hr IV Q24H [facility] Insulin Glargine (Insulin Glargine,Hum.Rec.Anlog 100 Unit/Ml 10 Ml Vial) 20 unit SUBCUT BEDTIME [facility] Last Admin: 05/28/21 23:38 Dose: 20 unit Documented by: Insulin Human Lispro (Insulin Lispro 100 Unit/Ml 3 Ml Vial) 0 unit SUBCUT QIDACHS [facility]; Protocol Latanoprost (Latanoprost 0.005 % Ophth Tatianna 2.5 Ml Drops) 1 drop EYE-BOTH BEDT ROBERTA [facility] Lisinopril (Lisinopril 5 Mg Tablet) 5 mg PO DAILY [facility]; Protocol Omeprazole (Omeprazole 20 Mg Capsule.Dr) 20 mg PO BID@0630,1630 [facility] Last Admin: 05/29/21 06:01 Dose: Not Given Documented by: Ondansetron HCl (Ondansetron Hcl 4 Mg/2 Ml Vial) 4 mg IVPUSH Q8H PRN PRN Reason: Nausea and Vomiting Pharmacy Consult (Consult Rx Vancomycin Dosing) 1 each MISCELLANE DAILY PRN PRN Reason: Consult order Home Medications Medication Instructions Recorded Confirmed Last Taken Type gabapentin 800 mg tablet 800 mg PO BID 02/22/20 05/28/21 05/28/21 History lisinopril 5 mg tablet 5 mg PO DAILY 02/22/20 05/28/21 05/28/21 History metformin 1,000 mg tablet 1,000 mg PO BID 02/22/20 05/28/21 05/28/21 History aspirin 81 mg tablet,delayed 1 tab PO DAILY 09/04/20 05/28/21 05/28/21 History release apixaban 5 mg tablet (Eliquis) 1 tab PO BID 03/03/21 05/28/21 05/28/21 History baclofen 20 mg tablet 2 tab PO TID 03/03/21 05/28/21 05/28/21 History insulin glargine 100 unit/mL (3 20 unit SUBCUT BEDTIME 03/03/21 05/28/21 05/27/21 History mL) subcutaneous pen (Lantus Solostar U-100 Insulin) latanoprost 0.005 % eye drops 1 drp OPHTHALMIC (EYE) BEDTIME 03/03/21 05/28/21 05/27/21 History Physical Exam Vital Signs: Vital Signs: Last Vital Signs Temp 99.3 F 05/28/21 20:33 Pulse 95 05/29/21 00:12 Resp 16 05/29/21 00:12 BP 110/65 05/29/21 00:12 Pulse Ox 95 05/29/21 00:12 BMI result Body Mass Index 25.7 Const: General: comfortable and no acute distress Orientation/consciousness: No patient oriented x3 Resp: Effort & Inspection: normal respiratory effort Cardio: Rate: regular rate GI: Palpation (GI): Soft to palpation, not firm, nontender and no guarding Back/Spine/Pelvis: Other: left hip ulcer, superficial, about 4 cm x 4 cm in diameter, stage 1-2, clean; Right hip ulcer, superficial, about 3 cm in diameter, clean, also stage 1-2 Left ischial tuberosity ulcer, with wound VAC Neuro: General: No patient oriented x3 Results Labs Result diagrams: 05/29/21 06:30 05/29/21 06:30 Labs: Abnormal lab results 05/28/21 05/28/21 05/28/21 Range/Units 17:13 17:13 17:13 RBC 3.02 L (4.60-5.80) X10*6/uL Hgb 7.1 L (14.0-18.0) g/dl Hct 23.7 L (42.0-52.0) % MCV 78.5 L (80.0-98.0) fL MCH 23.5 L (27.0-33.0) pg MCHC 30.0 L (31.0-36.0) g/dl RDW 17.9 H (11.0-16.0) % Plt Count 574 H (160-400) X10*3/uL MPV 8.7 L (9.4-12.4) fL ESR 123 H (0-15) MM/HR Sodium 133 L (135-145) mmol/L POC Glucose (60-115) mg/dL Random Glucose 206 H D (60-115) mg/dL C-Reactive Protein 17.21 H (< or = 0.50) mg/dL 05/28/21 05/29/21 05/29/21 Range/Units 22:55 06:30 06:30 RBC 2.67 L (4.60-5.80) X10*6/uL Hgb 6.3 L* (14.0-18.0) g/dl Hct 20.9 L* (42.0-52.0) % MCV 78.3 L (80.0-98.0) fL MCH 23.6 L (27.0-33.0) pg MCHC 30.1 L (31.0-36.0) g/dl RDW 17.9 H (11.0-16.0) % Plt Count 428 H D (160-400) X10*3/uL MPV 8.2 L (9.4-12.4) fL ESR (0-15) MM/HR Sodium (135-145) mmol/L POC Glucose 185 H (60-115) mg/dL Random Glucose 127 H D (60-115) mg/dL C-Reactive Protein (< or = 0.50) mg/dL Short CBC 05/28/21 05/29/21 Range/Units 17:13 06:30 WBC 9.3 7.1 (4.8-10.8) X10*3/uL Hgb 7.1 L 6.3 L* (14.0-18.0) g/dl Hct 23.7 L 20.9 L* (42.0-52.0) % Plt Count 574 H 428 H D (160-400) X10*3/uL BMP 05/28/21 05/29/21 17:13 06:30 Sodium 133 L 136 Potassium 4.7 4.5 Chloride 99 103 Carbon Dioxide 27 25 BUN 14 12 Creatinine 0.67 0.65 Calcium 9.0 8.7 All other labs normal. Assessment and Plan (1) Decubital ulcer: Status: Acute He has multiple ulcers as described above. He has a superficial ulcer the left hip and on the right hip. The deeper ulcer on the left ischaial tuberosity has a wound VAC in place. This is likely prolonged periods of time sitting on a wheelchair with his limited mobility due to his paraplegia. This was described to need IV antibiotics. I plan to take the wound VAC down later on to examine this as the patient states he is going for an MRI. He does not appear septic. Procedures Date of Service Date of Service: 05/29/21
[2021-05-29] MEDS: Gabapentin 400 MG CAPSULE 800 MG PO ×2 (11:44→20:41)
[2021-05-29] MEDS: Aspirin Enteric Coated 81 MG TABLET.DR PO (11:45)
[2021-05-29] MEDS: lisinopriL 5 MG TABLET PO (11:45)
[2021-05-29] MEDS: Ferrous Sulfate 324 MG TABLET.DR PO ×2 (11:45→20:41)
[2021-05-29] MEDS: Baclofen 20 MG TABLET 40 MG PO ×3 (11:45→20:41)
--- NOTE | 2021-05-29 12:10 | P.EN_ITS ---
Event Note Date of Service: 05/29/21 Event Note: I took down his Wound Vac. The left ischial tuberosity ulcer is de ep, about 4 cm, and 3 x 3.5 cm in dimension, clean, no pus This does not require any derbidement. I applied a wet to dry packing with gauze for now This will need to be changed daily and prn. Wound Vac not reaapplied because of reported infection by Wound Clinic I would suggest therefore that we continue with daily wound dressings changes with wet to dry until he can be reevaluated by the Wound Clinic
[2021-05-29] MEDS: Acetaminophen 325 MG TABLET 650 MG PO (12:44)
--- NOTE | 2021-05-29 12:45 | PC.NURSE ---
Prior to blood transfusion, temp noted to be 99.1. MD kirkpatrick made aware and ordered PRN tylenol given.
[2021-05-29 14:06] LABS: Glucose, Whole Blood 153 mg/dL (60-115)
[2021-05-29] MEDS: Insulin Lispro 100 UNIT/ML 3 ML VIAL SUBCUT (15:18)
--- NOTE | 2021-05-29 15:57 | P.PNIM_ITS ---
Subjective Subjective Date of Service: 05/29/21 Interval History: no acute issues (All data with seismic interpreter ) Review of Systems denies chest pain Denies shortness of breath Denies nausea vomiting diarrhea Physical Exam Vital Signs: Vital Signs: Last Vital Signs Temp 98.0 F 05/29/21 13:12 Pulse 80 05/29/21 13:12 Resp 18 05/29/21 13:12 BP 97/54 L 05/29/21 13:12 Pulse Ox 95 05/29/21 00:12 BMI result Body Mass Index 25.7 Const: Other: no acute distress Resp: Other: clear to auscultation bilaterally no rales rhonchi wheezes Cardio: Other: no S4; positive S1-S2; no S3 murmurs rubs or gallops GI: Other: soft nontender nondistended with normoactive bowel sounds. No rebound guarding Back/Spine/Pelvis: Other: left hip ulcer, superficial, about 4 cm x 4 cm in diameter, stage 1-2, clean; Right hip ulcer, superficial, about 3 cm in diameter, clean, also stage 1-2 Left ischial tuberosity ulcer, with wound VAC Neuro: Other: paraplegic Extrem: Other: no edema bilaterally Objective Data Active Medications Acetaminophen (Acetaminophen 325 Mg Tablet) 650 mg PO Q6H PRN PRN Reason: Pain, Mild (Pain Scale 1-3) Last Admin: 05/29/21 12:44 Dose: 650 mg Documented by: JILL Aspirin (Aspirin Enteric Coated 81 Mg Tablet.) 81 mg PO DAILY [facility] Last Admin: 05/29/21 11:45 Dose: 81 mg Documented by: KRISSY Baclofen (Baclofen 20 Mg Tablet) 40 mg PO TID [facility] Last Admin: 05/29/21 15:18 Dose: 40 mg Documented by: KRISSY Dextrose (Dextrose 50 % 25 Gm/50 Ml Vial) 25 gm IVPUSH Q15M PRN; Protocol PRN Reason: per Hypoglycemia Standing Ord. Docusate Sodium (Docusate Sodium 100 Mg Capsule) 100 mg PO DAILY PRN PRN Reason: Constipation Ferrous Sulfate (Ferrous Sulfate 324 Mg Tablet.) 324 mg PO BID [facility] Last Admin: 05/29/21 11:45 Dose: 324 mg Documented by: KRISSY Gabapentin (Gabapentin 400 Mg Capsule) 800 mg PO BID [facility] Last Admin: 05/29/21 11:44 Dose: 800 mg Documented by: KRISSY Glucose (Glucose Gel 15 Gm Gel..Gram.) 15 gm PO Q15M PRN; Protocol PRN Reason: per Hypoglycemia Standing Ord. Piperacillin Sod/Tazobactam (Sod 3.375 gm/ Sodium Chloride) 50 mls @ 100 mls/hr IV Q6H [facility] Last Admin: 05/29/21 15:19 Dose: 100 mls/hr Documented by: KRISSY Vancomycin HCl 1,000 mg/Vancomycin HCl 750 mg/ Sodium Chloride 535 mls @ 267.5 mls/hr IV Q24H [facility] Insulin Glargine (Insulin Glargine,Hum.Rec.Anlog 100 Unit/Ml 10 Ml Vial) 20 unit SUBCUT BEDTIME [facility] Last Admin: 05/28/21 23:38 Dose: 20 unit Documented by: KAYLAH Insulin Human Lispro (Insulin Lispro 100 Unit/Ml 3 Ml Vial) 0 unit SUBCUT QIDACHS [facility]; Protocol Last Admin: 05/29/21 15:18 Dose: 2 unit Documented by: KRISSY Latanoprost (Latanoprost 0.005 % Ophth Tatianna 2.5 Ml Drops) 1 drop EYE-BOTH BEDTIME [facility] Lisinopril (Lisinopril 5 Mg Tablet) 5 mg PO DAILY [facility]; Protocol Last Admin: 05/29/21 11:45 Dose: 5 mg Documented by: KRISSY Omeprazole (Omeprazole 20 Mg Capsule.Dr) 20 mg PO BID@0630,1630 [facility] Last Admin: 05/29/21 06:01 Dose: Not Given Documented by: KAYLAH Non-Admin Reason: Patient Asleep Ondansetron HCl (Ondansetron Hcl 4 Mg/2 Ml Vial) 4 mg IVPUSH Q8H PRN PRN Reason: Nausea and Vomiting Oxycodone HCl (Oxycodone Hcl Immed Release 5 Mg Tablet) 5 mg PO Q4H PRN PRN Reason: Pain, Moderate (Pain Scale 4-6 Pharmacy Consult (Consult Rx Vancomycin Dosing) 1 each MISCELLANE DAILY PRN PRN Reason: Consult order Labs CBC & Chem 7: 05/29/21 06:30 05/29/21 06:30 Labs: Laboratory Results - last 24 hr 05/28/21 05/28/21 05/28/21 17:13 17:13 17:13 MCV 78.5 L MCH 23.5 L MCHC 30.0 L RDW 17.9 H Plt Count 574 H MPV 8.7 L Immature Gran % (Auto) Neut % (Auto) Lymph % (Auto) [place] % (Auto) Eos % (Auto) Baso % (Auto) Lymph # (Auto) [place] # (Auto) Eos # (Auto) Baso # (Auto) Abs Immat Gran (auto) Absolute Neuts (auto) Absolute Nucleated RBC 0.000 Nucleated RBC % (auto) 0.0 ESR Anion Gap 12 Estim Creat Clear Calc 126.0 Estimated GFR > 60 POC Glucose Random Glucose 206 H D Lactic Acid Calcium 9.0 C-Reactive Protein 17.21 H COVID-19 ([facility]) Negative COVID-19 Clin Com See Note Blood Type Antibody Screen Crossmatch 05/28/21 05/28/21 05/28/21 17:13 18:32 22:55 MCV MCH MCHC RDW Plt Count MPV Immature Gran % (Auto) Neut % (Auto) Lymph % (Auto) [place] % (Auto) Eos % (Auto) Baso % (Auto) Lymph # (Auto) [place] # (Auto) Eos # (Auto) Baso # (Auto) Abs Immat Gran (auto) Absolute Neuts (auto) Absolute Nucleated RBC Nucleated RBC % (auto) ESR 123 H Anion Gap Estim Creat Clear Calc Estimated GFR POC Glucose 185 H Random Glucose Lactic Acid 1.6 Calcium C-Reactive Protein COVID-19 ([facility]) COVID-19 Clin Com Blood Type Antibody Screen Crossmatch 05/29/21 05/29/21 05/29/21 06:30 06:30 08:08 MCV 78.3 L MCH 23.6 L MCHC 30.1 L RDW 17.9 H Plt Count 428 H D MPV 8.2 L Immature Gran % (Auto) 0.4 Neut % (Auto) 66.3 Lymph % (Auto) 22.4 [place] % (Auto) 8.5 Eos % (Auto) 1.7 Baso % (Auto) 0.7 Lymph # (Auto) 1.6 [place] # (Auto) 0.6 Eos # (Auto) 0.1 Baso # (Auto) 0.1 Abs Immat Gran (auto) 0.03 Absolute Neuts (auto) 4.7 Absolute Nucleated RBC 0.000 Nucleated RBC % (auto) 0.0 ESR Anion Gap 13 Estim Creat Clear Calc 129.9 Estimated GFR > 60 POC Glucose 111 Random Glucose 127 H D Lactic Acid Calcium 8.7 C-Reactive Protein COVID-19 ([facility]) COVID-19 Clin Com Blood Type Antibody Screen Crossmatch 05/29/21 05/29/21 11:41 14:00 MCV MCH MCHC RDW Plt Count MPV Immature Gran % (Auto) Neut % (Auto) Lymph % (Auto) [place] % (Auto) Eos % (Auto) Baso % (Auto) Lymph # (Auto) [place] # (Auto) Eos # (Auto) Baso # (Auto) Abs Immat Gran (auto) Absolute Neuts (auto) Absolute Nucleated RBC Nucleated RBC % (auto) ESR Anion Gap Estim Creat Clear Calc Estimated GFR POC Glucose 153 H Random Glucose Lactic Acid Calcium C-Reactive Protein COVID-19 ([facility]) COVID-19 Clin Com Blood Type O Positive Antibody Screen NEGATIVE Crossmatch See Detail Assessment and Plan (1) Osteomyelitis: Status: Acute (2) Hypertension: Status: Acute (3) Diabetes: Status: Acute Assessment and Plan: 66 yo M with hx of DM, osteomylitis and now non-healing wound presents to the hospital, sent by wound clinic for IV abx 1. Soft tissue wound inferior to the left ischial tuberosity. . Question osteomyelitis -continue IV vancomycin Zosyn pending MRI to clarify osteomyelitis -Wound VAC removed by surgery; with a dry dressing placed for hospitalization -ID consult pending 2.DMII - hold oral antihyperglycemic at this time and back when appropriate - will continue home insulin - add LDSSI - diabetic diet 3.HTN - stable - continue home meds 4. Acute on chronic anemia - transfuse 1 unit packed red cells - recheck CBC in a.m. DVT ppx: SCD in anticipation of surgical intervention Quality Stroke Does the patient have a stroke diagnosis?: No VTE Prior VTE?: No VTE Risk Level:: Medical - moderate - high VTE Device Contraindication: Treatment Not Indicated VTE Drug Contraindication: N/A - Med Ordered
--- NOTE | 2021-05-29 16:15 | MHC.CM.PN ---
Addendum entered by Elsy Atkinson 05/30/21 08:21: PT IS ACTIVE WITH [facility]. Original Note: CM SPOKE TO PTS DAUGHTER, TANK [phone] WHO REPORTS THE PT LIVES ALONE BUT SHE IS NEXT DOOR. SHE REPORTS THE PT CURRENTLY HAS NO IN HOME SERVICES. 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 SHE REPORTS THEY HAVE REPAIRED THE RELATIONSHIP AND SHE WILL BE AVAILABLE TO ASSIST HIM WITH POST DC NEEDS. SHE REPORTS HE USES AN ELECTRIC WHEEL CHAIR MOST OF THE TIME. SHE CONFIRMS PTS PCP IS [facility] AND HE HAS A HCP ON FILE IMM DELIVERED, ORIGINAL AT PTS BEDSIDE, COPY SENT TO [facility] CURRENT DC PLAN IS HOME VS HOME WITH [facility] AND HOME INFUSION DEPENDING ON DC NEEDS DAUGHTER REPORTS SHE HAS ASSISTED PT IN DOING HOME IV ABX IN THE PAST. DAUGHTER WILL TRANSORT AT DC
--- NOTE | 2021-05-29 16:40 | P.CNID_ITS ---
History of Present Illness Data of Consult Service Date: 05/29/21 Requesting physician: Joel Molina Primary Care Provider: MD FATOU Hatfield Reason for consult: possible osteomyelitis left ischium He presents to outpatient clinic refer Wound Clinic for treatment left ischial tuberosity osteomyelitis concern. The patient is in 10 left ischial pain and has trouble focusing due to this pain. He also feels weak and dizzy and has had transfusions due to anemia Review of Systems Verdana 4l Review of Systems: Yes all other systems are reviewed and Verdana 4d are negative [facility] Past Medical History Medical History Decubitus ulcer of right ischial tuberosity region Diabetes HTN (hypertension) Hx pulmonary embolism Osteomyelitis Osteomyelitis of left foot Paraplegia Right foot infection (Unknown) Family History Family History Father No problems noted. Mother No problems noted. Brother No problems noted. Sister No problems noted. Sister No problems noted. Sister No problems noted. Son No problems noted. Son No problems noted. Son No problems noted. Son No problems noted. Daughter No problems noted. Daughter No problems noted. Family history: reviewed and not pertinent Surgical History Surgical History History of spinal surgery Hx of colonoscopy Hx of foot surgery Social History Social History Household Members: Family Household Members Other:: roommate Housing: House Do you presently have visiting nurse or other home services: Yes Alcohol intake: never Patient Tobacco Use Status: Never used Tobacco Second Hand Smoke Exposure: No Advance Directives Date on File: 03/10/21 service: No Current occupational status: disabled Meds Allergies Allergy/AdvReac Type Severity Reaction Status Date / Time levofloxacin [From Allergy Intermediate HIVES, Verified 05/27/21 13:58 LEVAQUIN] SKIN RASH seafood Allergy Intermediate Itching Verified 05/27/21 13:58 throat shellfish derived Allergy Intermediate itching Verified 05/27/21 13:58 throat Active Medications: Current Medications Acetaminophen (Acetaminophen 325 Mg Tablet) 650 mg PO Q6H PRN PRN Reason: Pain, Mild (Pain Scale 1-3) Last Admin: 05/29/21 12:44 Dose: 650 mg Documented by: Aspirin (Aspirin Enteric Coated 81 Mg Tablet.) 81 mg PO DAILY [facility] Last Admin: 05/29/21 11:45 Dose: 81 mg Documented by: Baclofen (Baclofen 20 Mg Tablet) 40 mg PO TID [facility] Last Admin: 05/29/21 15:18 Dose: 40 mg Documented by: Dextrose (Dextrose 50 % 25 Gm/50 Ml Vial) 25 gm IVPUSH Q15M PRN; Protocol PRN Reason: per Hypoglycemia Standing Ord. Docusate Sodium (Docusate Sodium 100 Mg Capsule) 100 mg PO DAILY PRN PRN Reason: Constipation Ferrous Sulfate (Ferrous Sulfate 324 Mg Tablet.) 324 mg PO BID [facility] Last Admin: 05/29/21 11:45 Dose: 324 mg Documented by: Gabapentin (Gabapentin 400 Mg Capsule) 800 mg PO BID [facility] Last Admin: 05/29/21 11:44 Dose: 800 mg Documented by: Glucose (Glucose Gel 15 Gm Gel..Gram.) 15 gm PO Q15M PRN; Protocol PRN Reason: per Hypoglycemia Standing Ord. Piperacillin Sod/Tazobactam (Sod 3.375 gm/ Sodium Chloride) 50 mls @ 100 mls/hr IV Q6H [facility] Last Admin: 05/29/21 15:19 Dose: 100 mls/hr Documented by: Vancomycin HCl 1,000 mg/Vancomycin HCl 750 mg/ Sodium Chloride 535 mls @ 267.5 mls/hr IV Q24H [facility] Insulin Glargine (Insulin Glargine,Hum.Rec.Anlog 100 Unit/Ml 10 Ml Vial) 20 unit SUBCUT BEDTIME [facility] Last Admin: 05/28/21 23:38 Dose: 20 unit Documented by: Insulin Human Lispro (Insulin Lispro 100 Unit/Ml 3 Ml Vial) 0 unit SUBCUT QIDACHS [facility]; Protocol Last Admin: 05/29/21 15:18 Dose: 2 unit Documented by: Latanoprost (Latanoprost 0.005 % Ophth [place] 2.5 Ml Drops) 1 drop EYE-BOTH BEDTIME [facility] Lisinopril (Lisinopril 5 Mg Tablet) 5 mg PO DAILY [facility]; Protocol Last Admin: 05/29/21 11:45 Dose: 5 mg Documented by: Omeprazole (Omeprazole 20 Mg Capsule.Dr) 20 mg PO BID@0630,1630 [facility] Last Admin: 05/29/21 06:01 Dose: Not Given Documented by: Ondansetron HCl (Ondansetron Hcl 4 Mg/2 Ml Vial) 4 mg IVPUSH Q8H PRN PRN Reason: Nausea and Vomiting Oxycodone HCl (Oxycodone Hcl Immed Release 5 Mg Tablet) 5 mg PO Q4H PRN PRN Reason: Pain, Moderate (Pain Scale 4-6 Pharmacy Consult (Consult Rx Vancomycin Dosing) 1 each MISCELLANE DAILY PRN PRN Reason: Consult order Home Medications Medication Instructions Recorded Confirmed Last Taken Type gabapentin 800 mg 800 mg PO BID 02/22/20 05/28/21 05/28/21 History tablet lisinopril 5 mg 5 mg PO DAILY 02/22/20 05/28/21 05/28/21 History tablet metformin 1,000 1,000 mg PO BID 02/22/20 05/28/21 05/28/21 History mg tablet aspirin 81 mg 1 tab PO DAILY 09/04/20 05/28/21 05/28/21 History tablet,delayed release apixaban 5 mg 1 tab PO BID 03/03/21 05/28/21 05/28/21 History tablet (Eliquis) baclofen 20 mg 2 tab PO TID 03/03/21 05/28/21 05/28/21 History tablet insulin glargine 20 unit SUBCUT 03/03/21 05/28/21 05/27/21 History 100 unit/mL (3 BEDTIME mL) subcutaneous pen (Lantus Solostar U-100 Insulin) latanoprost 0.005 1 drp OPHTHALMIC 03/03/21 05/28/21 05/27/21 History % eye drops (EYE) BEDTIME Physical Exam Verdana 4l Vital Signs: Verdana 4d Verdana 4d Vital Signs: Verdana 4d Verdana 4Bd Last Vital Signs Verdana 4d Manager [employer]ding New 4d Manager [employer]ding New 4d Temp 98.0 F 05/29/21 13:12 Manager Welding New 4d Pulse 78 05/29/21 15:55 Manager [employer]ding New 4d Resp 15 05/29/21 15:55 BP 100/43 L 05/29/21 15:55 Pulse Ox 96 05/29/21 15:55 BMI result Body Mass Index 25.7 Const: General: cooperative Resp: Effort & Inspection: normal respiratory effort Cardio: Rate: regular rate Rhythm: regular rhythm GI: Palpation (GI): Soft to palpation and nontender Back/Spine/Pelvis: Other: left ischial discomfort Extrem: Other: unremarkable,paraparesis Results Labs CBC & Chem 7: 06/02/21 05:18 06/02/21 05:18 Labs: Short CBC 05/28/21 05/29/21 Range/Units 17:13 06:30 WBC 9.3 7.1 (4.8-10.8) X10*3/uL Hgb 7.1 L 6.3 L* (14.0-18.0) g/dl Hct 23.7 L 20.9 L* (42.0-52.0) % Plt Count 574 H 428 H D (160-400) X10*3/uL BMP 05/28/21 05/29/21 17:13 06:30 Sodium 133 L 136 Potassium 4.7 4.5 Chloride 99 103 Carbon Dioxide 27 25 BUN 14 12 Creatinine 0.67 0.65 Calcium 9.0 8.7 Assessment and Plan (1) Decubital ulcer: Status: Acute He has back ulcer and not sure if osteomyelitis He feels better and less pain since wound vac removed (2) Paraplegia: Status: Acute Plan Check MRI and if no osteomyelitis no antibiotics If osteomyelitis found ,must be acute since prior no osteomyelitis seen and would give IV Ertapenem and Vancomycin for six weeks
[2021-05-29] MEDS: oxyCODONE HCl Immed Release 5 MG TABLET PO (17:40)
--- NOTE | 2021-05-29 17:43 | PC.NURSE ---
Report given to CAROLEE Pantoja. Pt to go to MRI and then assigned room of 346.
[2021-05-29] MEDS: Omeprazole 20 MG CAPSULE.DR PO (20:41)
[2021-05-29] MEDS: Insulin Glargine,Hum.rec.anlog 100 UNIT/ML 10 ML VIAL 20 UNIT SUBCUT (20:48)
[2021-05-29 20:58] LABS: Glucose, Whole Blood 127 mg/dL (60-115)
[2021-05-29] MEDS: vancomycin HCL 1,000 MG, vancomycin HCL 750 MG in 0.9 % Sodium Chloride 500 ML 267.5 MG IV (21:45)
[2021-05-30] VITALS: BP 128/60; PULSE 92; RESP 18; TEMP 37.7; O2SAT 100
[2021-05-30 04:00] VITALS: BP 134/61; PULSE 86; RESP 18; TEMP 36.9; O2SAT 97
[2021-05-30] MEDS: Piperacillin Sodium/Tazobactam 3.375 GM in 0.9 % Sodium Chloride 50 ML IV ×2 (04:46→09:14)
[2021-05-30] MEDS: Omeprazole 20 MG CAPSULE.DR PO ×2 (04:47→17:02)
[2021-05-30 07:14] VITALS: BP 118/56; PULSE 82; RESP 18; TEMP 36.1; O2SAT 98
[2021-05-30 07:41] LABS: Glucose, Whole Blood 109 mg/dL (60-115)
[2021-05-30 08:32] LABS: MANUAL DIFF FLAG NO
[2021-05-30 08:34] LABS: Basophils Percent Auto 0.6 % (0-2); Eosinophils Absolute Auto 0.2 X10*3/uL (0.0-0.4); Eosinophils Percent Auto 2.3 % (0-4); Hematocrit 23.9 % (42.0-52.0); Hemoglobin 7.3 g/dl (14.0-18.0); Imm Gran Abs Auto 0.04 X10*3/uL (0.00-0.03); Imm Gran Pct Auto 0.6 % (0.0-0.4); Lymphocytes Absolute Auto 1.4 X10*3/uL (1.2-4.9); Lymphocytes Percent Auto 22.1 % (20-40); Mean Corpuscular HGB Conc 30.5 g/dl (31.0-36.0); Mean Corpuscular Hemoglobin 24.1 pg (27.0-33.0); Mean Corpuscular Volume 78.9 fL (80.0-98.0); Mean Platelet Volume 8.7 fL (9.4-12.4); Monocytes Absolute Auto 0.6 X10*3/uL (0.1-1.2); Monocytes Percent Auto 8.9 % (2-11); Neutrophils Absolute Auto 4.2 x10*3/uL (2.0-8.3); Neutrophils Percent Auto 65.5 % (45-73); Platelet Count 466 X10*3/uL (160-400); Red Blood Count 3.03 X10*6/uL (4.60-5.80); Red Cell Distribution Width 17.7 % (11.0-16.0); White Blood Count 6.4 X10*3/uL (4.8-10.8)
[2021-05-30 08:56] LABS: Alanine Aminotransferase 20 U/L (0-40); Albumin Level 2.5 g/dL (3.5-5.0); Alkaline Phosphatase 75 U/L (39-117); Anion Gap 12 (12-20); Aspartate Amino Transferase 14 U/L (5-37); Bilirubin Total 0.2 mg/dL (0.0-1.0); Blood Urea Nitrogen 8 mg/dL (9-16); Calcium 8.9 mg/dL (8.4-10.2); Carbon Dioxide 26 mmol/L (22-29); Chloride 105 mmol/L (96-108); Creatinine Clr Calc Pharmacy 143.1; Estimated Glomerular Filt Rate > 60; Glucose Fasting 121 mg/dL (60-99); Potassium 4.6 mmol/L (3.3-5.1); Sodium 138 mmol/L (135-145); Total Protein 7.1 g/dL (6.5-8.0)
[2021-05-30] MEDS: Aspirin Enteric Coated 81 MG TABLET.DR PO (09:14)
[2021-05-30] MEDS: Gabapentin 400 MG CAPSULE 800 MG PO ×2 (09:14→21:48)
[2021-05-30] MEDS: Ferrous Sulfate 324 MG TABLET.DR PO ×2 (09:14→21:49)
[2021-05-30] MEDS: Baclofen 20 MG TABLET 40 MG PO ×3 (09:14→21:49)
[2021-05-30] MEDS: lisinopriL 5 MG TABLET PO (09:15)
[2021-05-30] MEDS: oxyCODONE HCl Immed Release 5 MG TABLET PO ×3 (09:39→23:51)
[2021-05-30 11:06] VITALS: BP 141/72; PULSE 79; RESP 18; TEMP 36.6; O2SAT 98
[2021-05-30 11:21] LABS: Glucose, Whole Blood 196 mg/dL (60-115)
--- NOTE | 2021-05-30 11:38 | HO.PM.IMPN ---
Subjective Subjective Date of Service: 05/30/21 Interval History: ( all info through hot die picker) no acute issues overnight Review of Systems denies chest pain Denies shortness of breath Denies nausea vomiting diarrhea Back pain improved with wound VAC D.C. Physical Exam Vital Signs: Vital Signs: Last Vital Signs Temp 98 F 05/30/21 11:06 Pulse 79 05/30/21 11:06 Resp 18 05/30/21 11:06 BP 141/72 H 05/30/21 11:06 Pulse Ox 98 05/30/21 11:06 BMI result Body Mass Index 26.7 Const: Other: no acute distress Resp: Other: clear to auscultation bilaterally no rales rhonchi wheezes Cardio: Other: no S4; positive S1-S2; no S3 murmurs rubs or gallops GI: Other: soft nontender nondistended with normoactive bowel sounds. No rebound guarding Back/Spine/Pelvis: Other: left hip ulcer, superficial, about 4 cm x 4 cm in diameter, stage 1-2, clean; Right hip ulcer, superficial, about 3 cm in diameter, clean, also stage 1-2 Left ischial tuberosity ulcer, with wound VAC Neuro: Other: paraplegic Extrem: Other: no edema bilaterally Objective Data Active Medications Acetaminophen (Acetaminophen 325 Mg Tablet) 650 mg PO Q6H PRN PRN Reason: Pain, Mild (Pain Scale 1-3) Last Admin: 05/29/21 12:44 Dose: 650 mg Documented by: JILL Aspirin (Aspirin Enteric Coated 81 Mg Tablet.) 81 mg PO DAILY [facility] Last Admin: 05/30/21 09:14 Dose: 81 mg Documented by: SILVIA Baclofen (Baclofen 20 Mg Tablet) 40 mg PO TID [facility] Last Admin: 05/30/21 09:14 Dose: 40 mg Documented by: SILVIA Dextrose (Dextrose 50 % 25 Gm/50 Ml Vial) 25 gm IVPUSH Q15M PRN; Protocol PRN Reason: per Hypoglycemia Standing Ord. Docusate Sodium (Docusate Sodium 100 Mg Capsule) 100 mg PO DAILY PRN PRN Reason: Constipation Ferrous Sulfate (Ferrous Sulfate 324 Mg Tablet.) 324 mg PO BID [facility] Last Admin: 05/30/21 09:14 Dose: 324 mg Documented by: SILVIA Gabapentin (Gabapentin 400 Mg Capsule) 800 mg PO BID [facility] Last Admin: 05/30/21 09:14 Dose: 800 mg Documented by: SILVIA Glucose (Glucose Gel 15 Gm Gel..Gram.) 15 gm PO Q15M PRN; Protocol PRN Reason: per Hypoglycemia Standing Ord. Piperacillin Sod/Tazobactam (Sod 3.375 gm/ Sodium Chloride) 50 mls @ 100 mls/hr IV Q6H [facility] Last Infusion: 05/30/21 10:12 Dose: 0 mls/hr Documented by: SILVIA Vancomycin HCl 1,000 mg/Vancomycin HCl 750 mg/ Sodium Chloride 535 mls @ 267.5 mls/hr IV Q24H [facility] Last Infusion: 05/29/21 23:50 Dose: 0 mls/hr Documented by: TRACY Insulin Glargine (Insulin Glargine,Hum.Rec.Anlog 100 Unit/Ml 10 Ml Vial) 20 unit SUBCUT BEDTIME [facility] Last Admin: 05/29/21 20:48 Dose: 15 unit Documented by: TRACY Comments: pt wanted only 15u Insulin Human Lispro (Insulin Lispro 100 Unit/Ml 3 Ml Vial) 0 unit SUBCUT QIDACHS [facility]; Protocol Last Admin: 05/30/21 07:51 Dose: Not Given Documented by: SILVIA Non-Admin Reason: No Insulin Coverage Latanoprost (Latanoprost 0.005 % Ophth Tatianna 2.5 Ml Drops) 1 drop EYE-BOTH BEDTIME [facility] Last Admin: 05/29/21 21:49 Dose: Not Given Documented by: TRACY Non-Admin Reason: Med Not Available Lisinopril (Lisinopril 5 Mg Tablet) 5 mg PO DAILY [facility]; Protocol Last Admin: 05/30/21 09:15 Dose: 5 mg Documented by: SILVIA Omeprazole (Omeprazole 20 Mg Capsule.) 20 mg PO BID@0630,1630 [facility] Last Admin: 05/30/21 04:47 Dose: 20 mg Documented by: TRACY Ondansetron HCl (Ondansetron Hcl 4 Mg/2 Ml Vial) 4 mg IVPUSH Q8H PRN PRN Reason: Nausea and Vomiting Oxycodone HCl (Oxycodone Hcl Immed Release 5 Mg Tablet) 5 mg PO Q4H PRN PRN Reason: Pain, Moderate (Pain Scale 4-6 Last Admin: 05/30/21 09:39 Dose: 5 mg Documented by: SILVIA Pharmacy Consult (Consult Rx Vancomycin Dosing) 1 each MISCELLANE DAILY PRN PRN Reason: Consult order Labs CBC & Chem 7: 05/30/21 08:08 05/30/21 08:08 Labs: Laboratory Results - last 24 hr 05/29/21 05/29/21 05/29/21 11:41 14:00 20:40 MCV MCH MCHC RDW Plt Count MPV Immature Gran % (Auto) Neut % (Auto) Lymph % (Auto) [place] % (Auto) Eos % (Auto) Baso % (Auto) Lymph # (Auto) [place] # (Auto) Eos # (Auto) Baso # (Auto) Abs Immat Gran (auto) Absolute Neuts (auto) Absolute Nucleated RBC Nucleated RBC % (auto) Anion Gap Estim Creat Clear Calc Estimated GFR POC Glucose 153 H 127 H Fasting Glucose Calcium Total Bilirubin AST ALT Alkaline Phosphatase Total Protein Albumin Blood Type O Positive Antibody Screen NEGATIVE Crossmatch See Detail 05/30/21 05/30/21 05/30/21 07:16 08:08 08:08 MCV 78.9 L MCH 24.1 L MCHC 30.5 L RDW 17.7 H Plt Count 466 H MPV 8.7 L Immature Gran % (Auto) 0.6 H Neut % (Auto) 65.5 Lymph % (Auto) 22.1 [place] % (Auto) 8.9 Eos % (Auto) 2.3 Baso % (Auto) 0.6 Lymph # (Auto) 1.4 [place] # (Auto) 0.6 Eos # (Auto) 0.2 Baso # (Auto) 0.0 Abs Immat Gran (auto) 0.04 H Absolute Neuts (auto) 4.2 Absolute Nucleated RBC 0.000 Nucleated RBC % (auto) 0.0 Anion Gap 12 Estim Creat Clear Calc 143.1 Estimated GFR > 60 POC Glucose 109 Fasting Glucose 121 H Calcium 8.9 Total Bilirubin 0.2 AST 14 ALT 20 Alkaline Phosphatase 75 Total Protein 7.1 Albumin 2.5 L Blood Type Antibody Screen Crossmatch 05/30/21 11:06 MCV MCH MCHC RDW Plt Count MPV Immature Gran % (Auto) Neut % (Auto) Lymph % (Auto) [place] % (Auto) Eos % (Auto) Baso % (Auto) Lymph # (Auto) [place] # (Auto) Eos # (Auto) Baso # (Auto) Abs Immat Gran (auto) Absolute Neuts (auto) Absolute Nucleated RBC Nucleated RBC % (auto) Anion Gap Estim Creat Clear Calc Estimated GFR POC Glucose 196 H Fasting Glucose Calcium Total Bilirubin AST ALT Alkaline Phosphatase Total Protein Albumin Blood Type Antibody Screen Crossmatch Microbiology Microbiology Results: Microbiology 05/28/21 20:06 Blood Culture - Preliminary Blood - Venous No growth after 24 hours. 05/28/21 18:32 Blood Culture - Preliminary Blood - Venous No growth after 24 hours. Assessment and Plan (1) Osteomyelitis: Status: Acute (2) Hypertension: Status: Acute (3) Diabetes: Status: Acute Assessment and Plan: 66 yo M with hx of DM, osteomylitis and now non-healing wound presents to the hospital, sent by wound clinic for IV abx 1. Osteomyelitis( left ischium/acetabulum) -continue IV vancomycin() and switch to Ertapenem(day) -Wound VAC removed by surgery; wet/dry dressing placed for hospitalization. Resume eliquis. - consult for PICC line 2.DMII - add back metformin - will continue home insulin - add LDSSI - diabetic diet 3.HTN - stable - continue home meds 4. Acute on chronic anemia - transfused 1 unit packed red cells with good response - recheck CBC in a.m. DVT ppx: SCD in anticipation of surgical intervention Quality Stroke Does the patient have a stroke diagnosis?: No VTE Prior VTE?: No VTE Risk Level:: Medical - moderate - high VTE Device Contraindication: Treatment Not Indicated VTE Drug Contraindication: N/A - Med Ordered
[2021-05-30] MEDS: Ertapenem Sodium 1 GM in 0.9 % Sodium Chloride 50 ML IV (12:02)
[2021-05-30] MEDS: Insulin Lispro 100 UNIT/ML 3 ML VIAL SUBCUT ×3 (12:03→21:50)
[2021-05-30] MEDS: Apixaban 5 MG TABLET PO ×2 (12:03→21:49)
[2021-05-30 15:16] VITALS: BP 115/59; PULSE 88; RESP 18; TEMP 36.5; O2SAT 100
[2021-05-30 16:38] LABS: Glucose, Whole Blood 217 mg/dL (60-115)
[2021-05-30 19:32] VITALS: BP 121/59; PULSE 89; RESP 18; TEMP 36.4; O2SAT 100
[2021-05-30 20:16] LABS: Glucose, Whole Blood 185 mg/dL (60-115)
[2021-05-30] MEDS: Latanoprost 0.005 % Ophth Sol 2.5 ML DROPS 1 DROP EYE-BOTH (21:46)
[2021-05-30] MEDS: vancomycin HCL 1,000 MG, vancomycin HCL 750 MG in 0.9 % Sodium Chloride 500 ML 267 MG IV (21:46)
[2021-05-30] MEDS: Insulin Glargine,Hum.rec.anlog 100 UNIT/ML 10 ML VIAL 20 UNIT SUBCUT (21:50)
[2021-05-30 21:51] LABS: Vancomycin Trough 6.3 mcg/mL (10.0-20.0)
[2021-05-31 00:06] VITALS: BP 102/35; PULSE 88; RESP 20; TEMP 36.9; O2SAT 87
[2021-05-31 05:50] LABS: MANUAL DIFF FLAG NO
[2021-05-31] MEDS: Omeprazole 20 MG CAPSULE.DR PO ×2 (06:09→16:58)
[2021-05-31 06:31] LABS: Basophils Percent Auto 0.6 % (0-2); Eosinophils Absolute Auto 0.2 X10*3/uL (0.0-0.4); Eosinophils Percent Auto 3.5 % (0-4); Hematocrit 25.1 % (42.0-52.0); Hemoglobin 7.5 g/dl (14.0-18.0); Imm Gran Abs Auto 0.03 X10*3/uL (0.00-0.03); Imm Gran Pct Auto 0.5 % (0.0-0.4); Lymphocytes Absolute Auto 1.5 X10*3/uL (1.2-4.9); Lymphocytes Percent Auto 23.6 % (20-40); Mean Corpuscular HGB Conc 29.9 g/dl (31.0-36.0); Mean Corpuscular Hemoglobin 24.1 pg (27.0-33.0); Mean Corpuscular Volume 80.7 fL (80.0-98.0); Monocytes Absolute Auto 0.6 X10*3/uL (0.1-1.2); Monocytes Percent Auto 8.8 % (2-11); Platelet Count 529 X10*3/uL (160-400); Red Blood Count 3.11 X10*6/uL (4.60-5.80); White Blood Count 6.3 X10*3/uL (4.8-10.8)
[2021-05-31 06:42] LABS: Alanine Aminotransferase 25 U/L (0-40); Albumin Level 2.5 g/dL (3.5-5.0); Alkaline Phosphatase 76 U/L (39-117); Anion Gap 11 (12-20); Aspartate Amino Transferase 22 U/L (5-37); Bilirubin Total 0.2 mg/dL (0.0-1.0); Blood Urea Nitrogen 10 mg/dL (9-16); Calcium 8.8 mg/dL (8.4-10.2); Carbon Dioxide 27 mmol/L (22-29); Chloride 103 mmol/L (96-108); Estimated Glomerular Filt Rate > 60; Glucose Fasting 155 mg/dL (60-99); Potassium 4.6 mmol/L (3.3-5.1); Sodium 136 mmol/L (135-145); Total Protein 7.3 g/dL (6.5-8.0)
[2021-05-31 07:17] VITALS: BP 95/51; PULSE 91; RESP 18; TEMP 36; O2SAT 97
[2021-05-31 07:48] LABS: Glucose, Whole Blood 132 mg/dL (60-115)
[2021-05-31] MEDS: Baclofen 20 MG TABLET 40 MG PO ×3 (08:55→20:45)
[2021-05-31] MEDS: Apixaban 5 MG TABLET PO ×2 (08:55→20:45)
[2021-05-31] MEDS: lisinopriL 5 MG TABLET PO (08:55)
[2021-05-31] MEDS: metFORMIN HCl 1,000 MG TABLET 1000 MG PO (08:55)
[2021-05-31] MEDS: Gabapentin 400 MG CAPSULE 800 MG PO ×2 (08:56→20:45)
[2021-05-31] MEDS: Ferrous Sulfate 324 MG TABLET.DR PO ×2 (08:56→20:45)
[2021-05-31] MEDS: Aspirin Enteric Coated 81 MG TABLET.DR PO (08:56)
[2021-05-31] MEDS: oxyCODONE HCl Immed Release 5 MG TABLET PO ×2 (09:12→20:53)
[2021-05-31 11:06] VITALS: BP 99/52; PULSE 90; RESP 18; TEMP 36.1; O2SAT 98
[2021-05-31 11:27] LABS: Glucose, Whole Blood 200 mg/dL (60-115)
[2021-05-31] MEDS: Insulin Lispro 100 UNIT/ML 3 ML VIAL SUBCUT ×2 (11:46→20:43)
[2021-05-31] MEDS: vancomycin HCL 1,250 MG in 0.9 % Sodium Chloride 250 ML 166.67 MG IV ×2 (11:47→22:02)
[2021-05-31] MEDS: Ertapenem Sodium 1 GM in 0.9 % Sodium Chloride 50 ML IV (11:47)
--- NOTE | 2021-05-31 12:12 | P.PNIM_ITS ---
Subjective Subjective Date of Service: 05/31/21 Interval History: No acute issues overnight. Pain control acceptable with wound vac removed Review of Systems Denies chest pain Denies SOB Denies N/V/D Physical Exam Vital Signs: Vital Signs: Last Vital Signs Temp 97 F 05/31/21 11:06 Pulse 90 05/31/21 11:06 Resp 18 05/31/21 11:06 BP 99/52 L 05/31/21 11:06 Pulse Ox 98 05/31/21 11:06 BMI result Body Mass Index 26.7 Const: Other: no acute distress Resp: Other: clear to auscultation bilaterally no rales rhonchi wheezes Cardio: Other: no S4; positive S1-S2; no S3 murmurs rubs or gallops GI: Other: soft nontender nondistended with normoactive bowel sounds. No rebound guarding Back/Spine/Pelvis: Other: left hip ulcer, superficial, about 4 cm x 4 cm in diameter, stage 1-2, clean; Right hip ulcer, superficial, about 3 cm in diameter, clean, also stage 1-2 Left ischial tuberosity ulcer, with wound VAC Neuro: Other: paraplegic Extrem: Other: no edema bilaterally Objective Data Active Medications Acetaminophen (Acetaminophen 325 Mg Tablet) 650 mg PO Q6H PRN PRN Reason: Pain, Mild (Pain Scale 1-3) Last Admin: 05/29/21 12:44 Dose: 650 mg Documented by: JILL Apixaban (Apixaban 5 Mg Tablet) 5 mg PO BID [facility] Last Admin: 05/31/21 08:55 Dose: 5 mg Documented by: SILVIA Aspirin (Aspirin Enteric Coated 81 Mg Tablet.) 81 mg PO DAILY [facility] Last Admin: 05/31/21 08:56 Dose: 81 mg Documented by: SILVIA Baclofen (Baclofen 20 Mg Tablet) 40 mg PO TID [facility] Last Admin: 05/31/21 08:55 Dose: 40 mg Documented by: SILVIA Dextrose (Dextrose 50 % 25 Gm/50 Ml Vial) 25 gm IVPUSH Q15M PRN; Protocol PRN Reason: per Hypoglycemia Standing Ord. Docusate Sodium (Docusate Sodium 100 Mg Capsule) 100 mg PO DAILY PRN PRN Reason: Constipation Ferrous Sulfate (Ferrous Sulfate 324 Mg Tablet.) 324 mg PO BID [facility] Last Admin: 05/31/21 08:56 Dose: 324 mg Documented by: SILVIA Gabapentin (Gabapentin 400 Mg Capsule) 800 mg PO BID [facility] Last Admin: 05/31/21 08:56 Dose: 800 mg Documented by: SILVIA Glucose (Glucose Gel 15 Gm Gel..Gram.) 15 gm PO Q15M PRN; Protocol PRN Reason: per Hypoglycemia Standing Ord. Ertapenem 1 gm/ Sodium (Chloride) 50 mls @ 100 mls/hr IV Q24H [facility] Last Admin: 05/31/21 11:47 Dose: 100 mls/hr Documented by: SILVIA Vancomycin HCl 1,250 mg/ (Sodium Chloride) 250 mls @ 166.667 mls/hr IV Q12H [facility] Last Admin: 05/31/21 11:47 Dose: 166.67 mls/hr Documented by: SILVIA Insulin Glargine (Insulin Glargine,Hum.Rec.Anlog 100 Unit/Ml 10 Ml Vial) 20 unit SUBCUT BEDTIME [facility] Last Admin: 05/30/21 21:50 Dose: 20 unit Documented by: TRACY Insulin Human Lispro (Insulin Lispro 100 Unit/Ml 3 Ml Vial) 0 unit SUBCUT QIDACHS [facility]; Protocol Last Admin: 05/31/21 11:46 Dose: 2 unit Documented by: SILVIA Latanoprost (Latanoprost 0.005 % Ophth Tatianna 2.5 Ml Drops) 1 drop EYE-BOTH BEDTIME [facility] Last Admin: 05/30/21 21:46 Dose: 1 drop Documented by: TRACY Lisinopril (Lisinopril 5 Mg Tablet) 5 mg PO DAILY [facility]; Protocol Last Admin: 05/31/21 08:55 Dose: 5 mg Documented by: SILVIA Metformin HCl (Metformin Hcl 1,000 Mg Tablet) 1,000 mg PO BID [facility] Last Admin: 05/31/21 08:55 Dose: 1,000 mg Documented by: SILVIA Omeprazole (Omeprazole 20 Mg Capsule.) 20 mg PO BID@0630,1630 [facility] Last Admin: 05/31/21 06:09 Dose: 20 mg Documented by: TRACY Ondansetron HCl (Ondansetron Hcl 4 Mg/2 Ml Vial) 4 mg IVPUSH Q8H PRN PRN Reason: Nausea and Vomiting Oxycodone HCl (Oxycodone Hcl Immed Release 5 Mg Tablet) 5 mg PO Q4H PRN PRN Reason: Pain, Moderate (Pain Scale 4-6 Last Admin: 05/31/21 09:12 Dose: 5 mg Documented by: SILVIA Pharmacy Consult (Consult Rx Vancomycin Dosing) 1 each MISCELLANE DAILY PRN PRN Reason: Consult order Labs CBC & Chem 7: 05/31/21 04:45 05/31/21 04:45 Labs: Laboratory Results - last 24 hr 05/30/21 05/30/21 05/30/21 15:22 19:35 21:18 MCV MCH MCHC RDW Plt Count MPV Immature Gran % (Auto) Neut % (Auto) Lymph % (Auto) [place] % (Auto) Eos % (Auto) Baso % (Auto) Lymph # (Auto) [place] # (Auto) Eos # (Auto) Baso # (Auto) Abs Immat Gran (auto) Absolute Neuts (auto) Absolute Nucleated RBC Nucleated RBC % (auto) Anion Gap Estim Creat Clear Calc Estimated GFR POC Glucose 217 H 185 H Fasting Glucose Calcium Total Bilirubin AST ALT Alkaline Phosphatase Total Protein Albumin Vancomycin Trough 6.3 L 05/31/21 05/31/21 05/31/21 04:45 04:45 07:16 MCV 80.7 MCH 24.1 L MCHC 29.9 L RDW 18.0 H Plt Count 529 H MPV 9.0 L Immature Gran % (Auto) 0.5 H Neut % (Auto) 63.0 Lymph % (Auto) 23.6 [place] % (Auto) 8.8 Eos % (Auto) 3.5 Baso % (Auto) 0.6 Lymph # (Auto) 1.5 [place] # (Auto) 0.6 Eos # (Auto) 0.2 Baso # (Auto) 0.0 Abs Immat Gran (auto) 0.03 Absolute Neuts (auto) 4.0 Absolute Nucleated RBC 0.000 Nucleated RBC % (auto) 0.0 Anion Gap 11 L Estim Creat Clear Calc 128.0 Estimated GFR > 60 POC Glucose 132 H Fasting Glucose 155 H Calcium 8.8 Total Bilirubin 0.2 AST 22 D ALT 25 Alkaline Phosphatase 76 Total Protein 7.3 Albumin 2.5 L Vancomycin Trough 01/16/22 11:06 MCV MCH MCHC RDW Plt Count MPV Immature Gran % (Auto) Neut % (Auto) Lymph % (Auto) [place] % (Auto) Eos % (Auto) Baso % (Auto) Lymph # (Auto) [place] # (Auto) Eos # (Auto) Baso # (Auto) Abs Immat Gran (auto) Absolute Neuts (auto) Absolute Nucleated RBC Nucleated RBC % (auto) Anion Gap Estim Creat Clear Calc Estimated GFR POC Glucose 200 H Fasting Glucose Calcium Total Bilirubin AST ALT Alkaline Phosphatase Total Protein Albumin Vancomycin Trough Microbiology Microbiology Results: Microbiology 05/28/21 20:06 Blood Culture - Preliminary Blood - Venous No growth after 48 hours. 05/28/21 18:32 Blood Culture - Preliminary Blood - Venous No growth after 48 hours. Assessment and Plan (1) Diabetes: Status: Acute (2) Osteomyelitis: Status: Acute (3) Hypertension: Status: Acute Assessment and Plan: 66 yo M with hx of DM, osteomylitis and now non-healing wound presents to the hospital, sent by wound clinic for IV abx 1. Osteomyelitis( left ischium/acetabulum) -continue IV vancomycin() and switch to Ertapenem(day) -Wound VAC removed by surgery; wet/dry dressing placed for hospitalization. Resume eliquis. - consult for PICC line..BC x 2 negative x 48hrs 2.DMII - add back metformin - will continue home insulin - add LDSSI - diabetic diet 3.HTN - stable - continue home meds 4. Acute on chronic anemia - transfused 1 unit packed red cells with good response -stable DVT ppx: SCD in anticipation of surgical intervention Quality Stroke Does the patient have a stroke diagnosis?: No VTE Prior VTE?: No VTE Risk Level:: Medical - moderate - high VTE Device Contraindication: Treatment Not Indicated VTE Drug Contraindication: N/A - Med Ordered
[2021-05-31 15:45] VITALS: BP 107/65; PULSE 90; RESP 18; TEMP 37.1; O2SAT 100
[2021-05-31 16:26] LABS: Glucose, Whole Blood 137 mg/dL (60-115)
--- NOTE | 2021-05-31 16:50 | P.PNIM_ITS ---
Subjective Subjective Date of Service: 05/31/21 Interval History: No acute issues overnight Review of Systems Denies chest pain Denies SOB DeniesN/V/D Physical Exam Vital Signs: Vital Signs: Last Vital Signs Temp 98.7 F 05/31/21 15:45 Pulse 90 05/31/21 15:45 Resp 18 05/31/21 15:45 BP 107/65 05/31/21 15:45 Pulse Ox 100 05/31/21 15:45 BMI result Body Mass Index 26.7 Const: Other: no acute distress Resp: Other: clear to auscultation bilaterally no rales rhonchi wheezes Cardio: Other: no S4; positive S1-S2; no S3 murmurs rubs or gallops GI: Other: soft nontender nondistended with normoactive bowel sounds. No rebound guarding Back/Spine/Pelvis: Other: left hip ulcer, superficial, about 4 cm x 4 cm in diameter, stage 1-2, clean; Right hip ulcer, superficial, about 3 cm in diameter, clean, also stage 1-2 Left ischial tuberosity ulcer, with wound VAC Neuro: Other: paraplegic Extrem: Other: no edema bilaterally Objective Data Active Medications Acetaminophen (Acetaminophen 325 Mg Tablet) 650 mg PO Q6H PRN PRN Reason: Pain, Mild (Pain Scale 1-3) Last Admin: 05/29/21 12:44 Dose: 650 mg Documented by: JILL Apixaban (Apixaban 5 Mg Tablet) 5 mg PO BID [facility] Last Admin: 05/31/21 08:55 Dose: 5 mg Documented by: SILVIA Aspirin (Aspirin Enteric Coated 81 Mg Tablet.) 81 mg PO DAILY [facility] Last Admin: 05/31/21 08:56 Dose: 81 mg Documented by: SILVIA Baclofen (Baclofen 20 Mg Tablet) 40 mg PO TID [facility] Last Admin: 05/31/21 15:04 Dose: 40 mg Documented by: SILVIA Dextrose (Dextrose 50 % 25 Gm/50 Ml Vial) 25 gm IVPUSH Q15M PRN; Protocol PRN Reason: per Hypoglycemia Standing Ord. Docusate Sodium (Docusate Sodium 100 Mg Capsule) 100 mg PO DAILY PRN PRN Reason: Constipation Ferrous Sulfate (Ferrous Sulfate 324 Mg Tablet.) 324 mg PO BID [facility] Last Admin: 05/31/21 08:56 Dose: 324 mg Documented by: SILVIA Gabapentin (Gabapentin 400 Mg Capsule) 800 mg PO BID [facility] Last Admin: 05/31/21 08:56 Dose: 800 mg Documented by: SILVIA Glucose (Glucose Gel 15 Gm Gel..Gram.) 15 gm PO Q15M PRN; Protocol PRN Reason: per Hypoglycemia Standing Ord. Ertapenem 1 gm/ Sodium (Chloride) 50 mls @ 100 mls/hr IV Q24H [facility] Last Infusion: 05/31/21 12:27 Dose: 0 mls/hr Documented by: SILVIA Vancomycin HCl 1,250 mg/ (Sodium Chloride) 250 mls @ 166.667 mls/hr IV Q12H [facility] Last Infusion: 05/31/21 13:24 Dose: 0 mls/hr Documented by: SILVIA Insulin Glargine (Insulin Glargine,Hum.Rec.Anlog 100 Unit/Ml 10 Ml Vial) 20 unit SUBCUT BEDTIME [facility] Last Admin: 05/30/21 21:50 Dose: 20 unit Documented by: TRACY Insulin Human Lispro (Insulin Lispro 100 Unit/Ml 3 Ml Vial) 0 unit SUBCUT QIDACHS [facility]; Protocol Last Admin: 05/31/21 16:39 Dose: Not Given Documented by: SILVIA Non-Admin Reason: No Insulin Coverage Latanoprost (Latanoprost 0.005 % Ophth Tatianna 2.5 Ml Drops) 1 drop EYE-BOTH BED TIME [facility] Last Admin: 05/30/21 21:46 Dose: 1 drop Documented by: TRACY Lisinopril (Lisinopril 5 Mg Tablet) 5 mg PO DAILY [facility]; Protocol Last Admin: 05/31/21 08:55 Dose: 5 mg Documented by: SILVIA Metformin HCl (Metformin Hcl 1,000 Mg Tablet) 1,000 mg PO BID [facility] Last Admin: 05/31/21 08:55 Dose: 1,000 mg Documented by: SILVIA Omeprazole (Omeprazole 20 Mg Capsule.) 20 mg PO BID@0630,1630 [facility] Last Admin: 05/31/21 06:09 Dose: 20 mg Documented by: TRACY Ondansetron HCl (Ondansetron Hcl 4 Mg/2 Ml Vial) 4 mg IVPUSH Q8H PRN PRN Reason: Nausea and Vomiting Oxycodone HCl (Oxycodone Hcl Immed Release 5 Mg Tablet) 5 mg PO Q4H PRN PRN Reason: Pain, Moderate (Pain Scale 4-6 Last Admin: 05/31/21 09:12 Dose: 5 mg Documented by: SILVIA Pharmacy Consult (Consult Rx Vancomycin Dosing) 1 each MISCELLANE DAILY PRN PRN Reason: Consult order Labs CBC & Chem 7: 05/31/21 04:45 05/31/21 04:45 Labs: Laboratory Results - last 24 hr 05/30/21 05/30/21 05/31/21 19:35 21:18 04:45 MCV 80.7 MCH 24.1 L MCHC 29.9 L RDW 18.0 H Plt Count 529 H MPV 9.0 L Immature Gran % (Auto) 0.5 H Neut % (Auto) 63.0 Lymph % (Auto) 23.6 Baldwin % (Auto) 8.8 Eos % (Auto) 3.5 Baso % (Auto) 0.6 Lymph # (Auto) 1.5 [place] # (Auto) 0.6 Eos # (Auto) 0.2 Baso # (Auto) 0.0 Abs Immat Gran (auto) 0.03 Absolute Neuts (auto) 4.0 Absolute Nucleated RBC 0.000 Nucleated RBC % (auto) 0.0 Anion Gap Estim Creat Clear Calc Estimated GFR POC Glucose 185 H Fasting Glucose Calcium Total Bilirubin AST ALT Alkaline Phosphatase Total Protein Albumin Vancomycin Trough 6.3 L 05/31/21 05/31/21 05/31/21 04:45 07:16 11:06 MCV MCH MCHC RDW Plt Count MPV Immature Gran % (Auto) Neut % (Auto) Lymph % (Auto) [place] % (Auto) Eos % (Auto) Baso % (Auto) Lymph # (Auto) [place] # (Auto) Eos # (Auto) Baso # (Auto) Abs Immat Gran (auto) Absolute Neuts (auto) Absolute Nucleated RBC Nucleated RBC % (auto) Anion Gap 11 L Estim Creat Clear Calc 128.0 Estimated GFR > 60 POC Glucose 132 H 200 H Fasting Glucose 155 H Calcium 8.8 Total Bilirubin 0.2 AST 22 D ALT 25 Alkaline Phosphatase 76 Total Protein 7.3 Albumin 2.5 L Vancomycin Trough 05/31/21 16:07 MCV MCH MCHC RDW Plt Count MPV Immature Gran % (Auto) Neut % (Auto) Lymph % (Auto) [place] % (Auto) Eos % (Auto) Baso % (Auto) Lymph # (Auto) [place] # (Auto) Eos # (Auto) Baso # (Auto) Abs Immat Gran (auto) Absolute Neuts (auto) Absolute Nucleated RBC Nucleated RBC % (auto) Anion Gap Estim Creat Clear Calc Estimated GFR POC Glucose 137 H Fasting Glucose Calcium Total Bilirubin AST ALT Alkaline Phosphatase Total Protein Albumin Vancomycin Trough Microbiology Microbiology Results: Microbiology 05/28/21 20:06 Blood Culture - Preliminary Blood - Venous No growth after 48 hours. 05/28/21 18:32 Blood Culture - Preliminary Blood - Venous No growth after 48 hours. Assessment and Plan (1) Osteomyelitis: Status: Acute (2) Wound cellulitis: Status: Acute (3) Hypertension: Status: Acute Assessment and Plan: 66 yo M with hx of DM, osteomylitis and now non-healing wound presents to the hospital, sent by wound clinic for IV abx 1. Osteomyelitis( left ischium/acetabulum) -continue IV vancomycin() and switch to Ertapenem(day) -Wound VAC removed by surgery; wet/dry dressing placed for hospitalization. Resume eliquis. - consult for PICC line..BC x 2 negative x 48hrs 2.DMII - acceptable control...adjust as indicate 3.HTN - stable - continue home meds 4. Acute on chronic anemia - transfused 1 unit packed red cells with good response -stable DVT ppx: Lovenox Quality Stroke Does the patient have a stroke diagnosis?: No VTE Prior VTE?: No VTE Risk Level:: Medical - moderate - high VTE Device Contraindication: Treatment Not Indicated VTE Drug Contraindication: N/A - Med Ordered
--- NOTE | 2021-05-31 16:54 | P.PNIM_ITS ---
Subjective Subjective Date of Service: 06/11/21 Interval History: no acute issues overnight Review of Systems denies chest pain denies shortness of breath Denies nausea vomiting diarrhea Physical Exam Verdana 4l Vital Signs: Verdana 4d Verdana 4d Vital Signs: Verdana 4d Verdana 4Bd Last Vital Signs Verdana 4d Soils Engineer New 4d Soils Engineer New 4d Temp 98.7 F 05/31/21 15:45 Soils Engineer New 4d Pulse 90 05/31/21 15:45 Soils Engineer New 4d Resp 18 05/31/21 15:45 BP 107/65 05/31/21 15:45 Pulse Ox 100 05/31/21 15:45 BMI result Body Mass Index 26.7 Const: Other: no acute distress Resp: Other: clear to auscultation bilaterally no rales rhonchi wheezes Cardio: Other: no S4; positive S1-S2; no S3 murmurs rubs or gallops GI: Other: soft nontender nondistended with normoactive bowel sounds Extrem: Other: no edema bilaterally Objective Data Active Medications Acetaminophen (Acetaminophen 325 Mg Tablet) 650 mg PO Q6H PRN PRN Reason: Pain, Mild (Pain Scale 1-3) Last Admin: 05/29/21 12:44 Dose: 650 mg Documented by: JILL Apixaban (Apixaban 5 Mg Tablet) 5 mg PO BID [facility] Last Admin: 05/31/21 08:55 Dose: 5 mg Documented by: SILVIA Aspirin (Aspirin Enteric Coated 81 Mg Tablet.) 81 mg PO DAILY [facility] Last Admin: 05/31/21 08:56 Dose: 81 mg Documented by: SILVIA Baclofen (Baclofen 20 Mg Tablet) 40 mg PO TID [facility] Last Admin: 05/31/21 15:04 Dose: 40 mg Documented by: SILVIA Dextrose (Dextrose 50 % 25 Gm/50 Ml Vial) 25 gm IVPUSH Q15M PRN; Protocol PRN Reason: per Hypoglycemia Standing Ord. Docusate Sodium (Docusate Sodium 100 Mg Capsule) 100 mg PO DAILY PRN PRN Reason: Constipation Ferrous Sulfate (Ferrous Sulfate 324 Mg Tablet.) 324 mg PO BID [facility] Last Admin: 05/31/21 08:56 Dose: 324 mg Documented by: SILVIA Gabapentin (Gabapentin 400 Mg Capsule) 800 mg PO BID [facility] Last Admin: 05/31/21 08:56 Dose: 800 mg Documented by: SILVIA Glucose (Glucose Gel 15 Gm Gel..Gram.) 15 gm PO Q15M PRN; Protocol PRN Reason: per Hypoglycemia Standing Ord. Ertapenem 1 gm/ Sodium (Chloride) 50 mls @ 100 mls/hr IV Q24H [facility] Last Infusion: 05/31/21 12:27 Dose: 0 mls/hr Documented by: SILVIA Vancomycin HCl 1,250 mg/ (Sodium Chloride) 250 mls @ 166.667 mls/hr IV Q12H [facility] Last Infusion: 05/31/21 13:24 Dose: 0 mls/hr Documented by: SILVIA Insulin Glargine (Insulin Glargine,Hum.Rec.Anlog 100 Unit/Ml 10 Ml Vial) 20 unit SUBCUT BEDTIME [facility] Last Admin: 05/30/21 21:50 Dose: 20 unit Documented by: TRACY Insulin Human Lispro (Insulin Lispro 100 Unit/Ml 3 Ml Vial) 0 unit SUBCUT QIDACHS [facility]; Protocol Last Admin: 05/31/21 16:39 Dose: Not Given Documented by: SILVIA Non-Admin Reason: No Insulin Coverage Latanoprost (Latanoprost 0.005 % Ophth Tatianna 2.5 Ml Drops) 1 drop EYE-BOTH BEDTIME [facility] [place] Last Admin: 05/30/21 21:46 Dose: 1 drop Documented by: TRACY Lisinopril (Lisinopril 5 Mg Tablet) 5 mg PO DAILY [facility]; Protocol Last Admin: 05/31/21 08:55 Dose: 5 mg Documented by: SILVIA Metformin HCl (Metformin Hcl 1,000 Mg Tablet) 1,000 mg PO BID [facility] Last Admin: 05/31/21 08:55 Dose: 1,000 mg Documented by: SILVIA Omeprazole (Omeprazole 20 Mg Capsule.) 20 mg PO BID@0630,1630 [facility] Last Admin: 05/31/21 06:09 Dose: 20 mg Documented by: TRACY Ondansetron HCl (Ondansetron Hcl 4 Mg/2 Ml Vial) 4 mg IVPUSH Q8H PRN PRN Reason: Nausea and Vomiting Oxycodone HCl (Oxycodone Hcl Immed Release 5 Mg Tablet) 5 mg PO Q4H PRN PRN Reason: Pain, Moderate (Pain Scale 4-6 Last Admin: 05/31/21 09:12 Dose: 5 mg Documented by: SILVIA Pharmacy Consult (Consult Rx Vancomycin Dosing) 1 each MISCELLANE DAILY PRN PRN Reason: Consult order Labs CBC & Chem 7: 06/02/21 05:18 06/02/21 05:18 Labs: Laboratory Results - last 24 hr 05/30/21 05/30/21 05/31/21 19:35 21:18 04:45 MCV 80.7 MCH 24.1 L MCHC 29.9 L RDW 18.0 H Plt Count 529 H MPV 9.0 L Immature Gran % (Auto) 0.5 H Neut % (Auto) 63.0 Lymph % (Auto) 23.6 [place] % (Auto) 8.8 Eos % (Auto) 3.5 Baso % (Auto) 0.6 Lymph # (Auto) 1.5 [place] # (Auto) 0.6 Eos # (Auto) 0.2 Baso # (Auto) 0.0 Abs Immat Gran (auto) 0.03 Absolute Neuts (auto) 4.0 Absolute Nucleated RBC 0.000 Nucleated RBC % (auto) 0.0 Anion Gap Estim Creat Clear Calc Estimated GFR POC Glucose 185 H Fasting Glucose Calcium Total Bilirubin AST ALT Alkaline Phosphatase Total Protein Albumin Vancomycin Trough 6.3 L 05/31/21 05/31/21 05/31/21 04:45 07:16 11:06 MCV MCH MCHC RDW Plt Count MPV Immature Gran % (Auto) Neut % (Auto) Lymph % (Auto) [place] % (Auto) Eos % (Auto) Baso % (Auto) Lymph # (Auto) [place] # (Auto) Eos # (Auto) Baso # (Auto) Abs Immat Gran (auto) Absolute Neuts (auto) Absolute Nucleated RBC Nucleated RBC % (auto) Anion Gap 11 L Estim Creat Clear Calc 128.0 Estimated GFR > 60 POC Glucose 132 H 200 H Fasting Glucose 155 H Calcium 8.8 Total Bilirubin 0.2 AST 22 D ALT 25 Alkaline Phosphatase 76 Total Protein 7.3 Albumin 2.5 L Vancomycin Trough 05/31/21 16:07 MCV MCH MCHC RDW Plt Count MPV Immature Gran % (Auto) Neut % (Auto) Lymph % (Auto) [place] % (Auto) Eos % (Auto) Baso % (Auto) Lymph # (Auto) [place] # (Auto) Eos # (Auto) Baso # (Auto) Abs Immat Gran (auto) Absolute Neuts (auto) Absolute Nucleated RBC Nucleated RBC % (auto) Anion Gap Estim Creat Clear Calc Estimated GFR POC Glucose 137 H Fasting Glucose Calcium Total Bilirubin AST ALT Alkaline Phosphatase Total Protein Albumin Vancomycin Trough Microbiology Microbiology Results: Microbiology 05/28/21 20:06 Blood Culture - Preliminary Blood - Venous No growth after 48 hours. 05/28/21 18:32 Blood Culture - Preliminary Blood - Venous No growth after 48 hours. Assessment and Plan (1) Osteomyelitis: Status: Acute (2) Diabetes: Status: Acute (3) Anemia: Status: Acute Plan 66 yo M with hx of DM, osteomylitis and now non-healing wound presents to the hospital, sent by wound clinic for IV abx 1. Osteomyelitis( left ischium/acetabulum) -continue IV vancomycin() and switch to Ertapenem(day) -Wound VAC removed by surgery; wet/dry dressing placed for hospitalization. Resume eliquis. - consult for PICC line..BC x 2 negative x 48hrs 2.DMII - acceptable control...adjust as indicate 3.HTN - stable - continue home meds 4. Acute on chronic anemia - transfused 1 unit packed red cells with good response -stable DVT ppx: Lovenox Quality Stroke Does the patient have a stroke diagnosis?: No VTE Prior VTE?: No VTE Risk Level:: Medical - moderate - high VTE Device Contraindication: Treatment Not Indicated VTE Drug Contraindication: N/A - Med Ordered
[2021-05-31 19:20] VITALS: BP 157/66; PULSE 86; RESP 18; TEMP 37.1; O2SAT 99
[2021-05-31 20:22] LABS: Glucose, Whole Blood 152 mg/dL (60-115)
[2021-05-31] MEDS: Insulin Glargine,Hum.rec.anlog 100 UNIT/ML 10 ML VIAL 20 UNIT SUBCUT (20:44)
[2021-05-31] MEDS: Latanoprost 0.005 % Ophth Sol 2.5 ML DROPS 1 DROP EYE-BOTH (20:54)
[2021-06-01] VITALS (8 sets, daily range): BP systolic 99–124; BP diastolic 40–76; PULSE 78–94; RESP 18–20; TEMP 36.3–37.6; O2SAT 93–100; BMI 26.7
[2021-06-01 04:47] LABS: MANUAL DIFF FLAG NO
[2021-06-01 04:55] LABS: Basophils Percent Auto 0.6 % (0-2); Eosinophils Absolute Auto 0.4 X10*3/uL (0.0-0.4); Hemoglobin 7.4 g/dl (14.0-18.0); Imm Gran Abs Auto 0.03 X10*3/uL (0.00-0.03); Imm Gran Pct Auto 0.5 % (0.0-0.4); Lymphocytes Absolute Auto 1.5 X10*3/uL (1.2-4.9); Lymphocytes Percent Auto 23.1 % (20-40); Mean Corpuscular HGB Conc 29.6 g/dl (31.0-36.0); Mean Corpuscular Hemoglobin 23.9 pg (27.0-33.0); Mean Corpuscular Volume 80.6 fL (80.0-98.0); Mean Platelet Volume 8.4 fL (9.4-12.4); Monocytes Absolute Auto 0.6 X10*3/uL (0.1-1.2); Monocytes Percent Auto 9.6 % (2-11); Neutrophils Absolute Auto 3.9 x10*3/uL (2.0-8.3); Neutrophils Percent Auto 60.2 % (45-73); Platelet Count 486 X10*3/uL (160-400); Red Cell Distribution Width 18.1 % (11.0-16.0); White Blood Count 6.5 X10*3/uL (4.8-10.8)
[2021-06-01 05:29] LABS: Alanine Aminotransferase 21 U/L (0-40); Albumin Level 2.5 g/dL (3.5-5.0); Alkaline Phosphatase 72 U/L (39-117); Anion Gap 13 (12-20); Aspartate Amino Transferase 16 U/L (5-37); Bilirubin Total 0.2 mg/dL (0.0-1.0); Blood Urea Nitrogen 14 mg/dL (9-16); Calcium 8.8 mg/dL (8.4-10.2); Carbon Dioxide 27 mmol/L (22-29); Chloride 102 mmol/L (96-108); Estimated Glomerular Filt Rate > 60; Glucose Fasting 160 mg/dL (60-99); Potassium 4.9 mmol/L (3.3-5.1); Sodium 137 mmol/L (135-145)
[2021-06-01] MEDS: Omeprazole 20 MG CAPSULE.DR PO ×2 (06:04→17:20)
[2021-06-01] MEDS: Gabapentin 400 MG CAPSULE 800 MG PO ×2 (06:57→21:19)
[2021-06-01] MEDS: Aspirin Enteric Coated 81 MG TABLET.DR PO (06:57)
[2021-06-01] MEDS: Baclofen 20 MG TABLET 40 MG PO ×3 (06:57→21:19)
[2021-06-01] MEDS: oxyCODONE HCl Immed Release 5 MG TABLET PO ×3 (06:57→21:24)
[2021-06-01] MEDS: Apixaban 5 MG TABLET PO ×2 (06:58→21:19)
[2021-06-01] MEDS: Ferrous Sulfate 324 MG TABLET.DR PO ×2 (06:58→21:19)
[2021-06-01] MEDS: metFORMIN HCl 1,000 MG TABLET 1000 MG PO ×2 (07:01→17:20)
[2021-06-01 07:40] LABS: Glucose, Whole Blood 118 mg/dL (60-115)
--- NOTE | 2021-06-01 09:59 | PHA.PROG ---
Admission Date/Time: May 28, 2021 21:50 Indication: Weight in k.6 kg Adjusted body weight in Kg: [place] body weight in Kg: Obesity Dosing Indication % IBW: Serum Creatinine - Last 168 Hours 05/28/21 05/29/21 05/30/21 17:13 06:30 08:08 Creatinine 0.67 0.65 0.59 05/31/21 06/01/21 04:45 04:23 Creatinine 0.66 0.67 Estimated CrCl and GFR - Last 168 Hours 05/28/21 05/29/21 05/30/21 17:13 06:30 08:08 Estim Creat Clear Calc 126.0 129.9 143.1 Estimated GFR > 60 > 60 > 60 05/31/21 06/01/21 04:45 04:23 Estim Creat Clear Calc 128.0 126.0 Estimated GFR > 60 > 60 Vancomycin Loading Dose: 2GM Current Vancomycin Dosing Regimen: 1000 MG Q12 Vancomycin Monitoring using AUC goal of 400 - 600 range with trough as surrogate marker: Date and Time for next Vancomycin Level to be drawn: 06/02@0900 Vancomycin Trough 17.0 mcg/mL (10.0-20.0) 06/01/21 08:59 Pharmacist Comments on Vancomycin Plan: Decrease dose since significant jump in trough and increase in scr, monitor, may need to increase back up to 1250 mg Vancomycin dosing will take advantage of [employer] as a clinical decision support tool that uses Bayesian modeling to calculate individual patient's pharmacokinetic parameters and forecast the patient's drug concentration time course with the target goal AUC 24 range of 400 - 600 mg/L/hr.
[2021-06-01 11:43] LABS: Glucose, Whole Blood 263 mg/dL (60-115)
[2021-06-01] MEDS: vancomycin HCL 1,000 MG in 0.9 % Sodium Chloride 250 ML 270 MG IV ×2 (11:46→22:24)
[2021-06-01] MEDS: Insulin Lispro 100 UNIT/ML 3 ML VIAL SUBCUT ×2 (11:46→21:30)
--- NOTE | 2021-06-01 14:10 | HO.PICC ---
PICC Line Insertion NPICC Diagnosis: OSTEOMYELITIS Indication: [facility] IV ANTIBIOTICS Pertinent Labs: REVIEWED Technique: Following informed consent including risks, benefits and alternatives and using sterile technique including cap and mask, sterile gown, glove and drape, the RIGHT arm was prepped and draped in the usual sterile fashion of full barrier technique with CHG. Following completion of [place] Protocol the skin and soft tissues were anesthetized with 1% Lidocaine plain. Using ultrasound guidance, BASILIC vein access was obtained IN SINGLE ATTEMPT BY THIS RN. Over an 0.018 wire through peel-away sheath, a 4-TUNISIAN, SINGLE LUMEN, PASV PICC line was positioned. Catheter length is 42 CM internal length, 0 CM external length, for a total trimmed length of 42 CM. The procedure was performed in S-272. Tip verification was performed by Gisela Montiel with Ibis 3CG. Tip located in SVC. Ultrasound was used to document vein patency and for needle entry. A formal ultrasound picture and cardiac rhythm strip was recorded. Vascular Np has released the line for use and it is currently dressed with a StatLock, Tegaderm, and CHG disc. Verification has been performed for blood return and line patency. Arm Circumference: 36 CM Equipment: [employer] POWERPICC SOLO Catheter Type: 4-TUNISIAN, PASV, SINGLE LUMEN Lot #: [id number]
--- NOTE | 2021-06-01 15:40 | MHC.CM.PN ---
Addendum entered by Abbey Tavarez 06/01/21 16:19: VANCO BID ADDED TO DC MEDS. KASHIF OF [facility] STATES THAT PATIENT'S DAUGHTER CAN MANAGE THE INFUSIONS. NEW FLUSH FORM UPLOADED INTO [employer] Original Note: [facility] CANNOT SEE PATIENT UNTIL Tuesday06/03/2021. PATIENT WILL REMAIN TONIGHT, GET A DOSE OF ERTAPENEM TOMORROW, AND DC HOME IT IS A Q24H ADMINISTRATION. [facility] AND [facility] IN AGREEMENT WITH PLAN. HOSPITALIST MADE AWARE.
--- NOTE | 2021-06-01 16:11 | MHC.CLN ---
NUTRITION CONSULT FOR SKIN. STAGE II TO LEFT HIP; STAGE IV TO LEFT BUTTOCK. DIET=DIABETIC 1800 KCAL. ADDING GLUCERNA TID TO PROMOTE WOUND HEALING . PROVIDES 710 KCAL, 30 G PROTEIN.
[2021-06-01 16:13] LABS: Glucose, Whole Blood 144 mg/dL (60-115)
[2021-06-01] MEDS: Heparin Sodium,Porcine Flush 50 UNITS, 0.9 % Sodium Chloride Flush 5 ML IVFLUSH ×2 (17:19→23:59)
[2021-06-01 20:18] LABS: Glucose, Whole Blood 173 mg/dL (60-115)
[2021-06-01] MEDS: Insulin Glargine,Hum.rec.anlog 100 UNIT/ML 10 ML VIAL 20 UNIT SUBCUT (21:19)
[2021-06-01] MEDS: Latanoprost 0.005 % Ophth Sol 2.5 ML DROPS 1 DROP EYE-BOTH (21:20)
[2021-06-01 21:30] LABS: Glucose, Whole Blood 211 mg/dL (60-115)
[2021-06-02 03:39] VITALS: BP 128/58; PULSE 109; RESP 18; TEMP 37.1; O2SAT 98
[2021-06-02 05:49] LABS: MANUAL DIFF FLAG NO
[2021-06-02 06:07] LABS: Alanine Aminotransferase 20 U/L (0-40); Albumin Level 2.5 g/dL (3.5-5.0); Alkaline Phosphatase 67 U/L (39-117); Anion Gap 12 (12-20); Aspartate Amino Transferase 16 U/L (5-37); Bilirubin Total 0.2 mg/dL (0.0-1.0); Blood Urea Nitrogen 16 mg/dL (9-16); Calcium 8.6 mg/dL (8.4-10.2); Carbon Dioxide 27 mmol/L (22-29); Chloride 101 mmol/L (96-108); Estimated Glomerular Filt Rate > 60; Glucose Fasting 130 mg/dL (60-99); Potassium 4.5 mmol/L (3.3-5.1); Sodium 135 mmol/L (135-145); Total Protein 7.2 g/dL (6.5-8.0)
[2021-06-02 06:19] LABS: Basophils Percent Auto 0.8 % (0-2); Eosinophils Absolute Auto 0.3 X10*3/uL (0.0-0.4); Eosinophils Percent Auto 5.5 % (0-4); Hematocrit 25.1 % (42.0-52.0); Hemoglobin 7.4 g/dl (14.0-18.0); Imm Gran Abs Auto 0.06 X10*3/uL (0.00-0.03); Imm Gran Pct Auto 1.2 % (0.0-0.4); Lymphocytes Absolute Auto 1.1 X10*3/uL (1.2-4.9); Lymphocytes Percent Auto 21.9 % (20-40); Mean Corpuscular HGB Conc 29.5 g/dl (31.0-36.0); Mean Corpuscular Hemoglobin 23.6 pg (27.0-33.0); Mean Corpuscular Volume 80.2 fL (80.0-98.0); Mean Platelet Volume 8.7 fL (9.4-12.4); Monocytes Absolute Auto 0.6 X10*3/uL (0.1-1.2); Neutrophils Percent Auto 59.6 % (45-73); Platelet Count 463 X10*3/uL (160-400); Red Blood Count 3.13 X10*6/uL (4.60-5.80); White Blood Count 5.1 X10*3/uL (4.8-10.8)
[2021-06-02] MEDS: Omeprazole 20 MG CAPSULE.DR PO ×2 (06:45→16:12)
[2021-06-02 07:14] VITALS: BP 104/55; PULSE 98; RESP 18; TEMP 36.9; O2SAT 96
[2021-06-02 07:44] LABS: Glucose, Whole Blood 125 mg/dL (60-115)
[2021-06-02] MEDS: Baclofen 20 MG TABLET 40 MG PO ×3 (08:20→20:29)
[2021-06-02] MEDS: metFORMIN HCl 1,000 MG TABLET 1000 MG PO ×2 (08:20→16:12)
[2021-06-02] MEDS: lisinopriL 5 MG TABLET PO (08:21)
[2021-06-02] MEDS: Ferrous Sulfate 324 MG TABLET.DR PO ×2 (08:21→20:29)
[2021-06-02] MEDS: Aspirin Enteric Coated 81 MG TABLET.DR PO (08:21)
[2021-06-02] MEDS: Apixaban 5 MG TABLET PO ×2 (08:22→20:29)
[2021-06-02] MEDS: Gabapentin 400 MG CAPSULE 800 MG PO ×2 (08:22→20:29)
[2021-06-02] MEDS: Heparin Sodium,Porcine Flush 50 UNITS, 0.9 % Sodium Chloride Flush 5 ML IVFLUSH ×3 (08:24→23:48)
[2021-06-02 09:57] LABS: Vancomycin Trough 13.7 mcg/mL (10.0-20.0)
--- NOTE | 2021-06-02 10:29 | P.CDIC_ITS ---
CDI Concurrent Query Documentation Clarification: PHYSICIAN'S DOCUMENTATION REQUEST Date of Query: 06/02/21 1030 Patient Name: Israel Levi Admit Date: 05/28/21 Dear Doctor, A review of the medical record indicates additional documentation may be indicated. Please review below and update the documentation accordingly. Clinical Indicators: Risk Factors/Clinical Indicators/Treatments Wound care assessment 05/31 - Pressure Injury Stage IV left buttock. Siver Alginate, Foam dressing. Based on the above, could you please provide, in the Progress Notes, further information regarding the ulcer/wound: * Location of the ulcer/wound, including laterality * Type (etiology) of ulcer/wound: * Diabetic ulcer * Venous stasis ulcer * Arterial (ischemic) ulcer * Pressure (decubitus) ulcer * If a pressure ulcer, please also include the stage* of the ulcer: * Stage 1 - Skin intact, non-blanchable redness * Stage 2 - Partial thickness loss of dermis, includes intact or open blister * Stage 3 - Full thickness tissue not including bone, tendon, or muscle * Stage 4 - Full thickness tissue loss, including exposed bones, tendon, or muscle * Unstageable * Unable to determine *Source: National Pressure Ulcer Advisory Panel (NPUAP) Use of terms such as suspected, likely, concern for, or probable (associated with a specific diagnosis that is being evaluated, monitored, or treated as if it exists) are acceptable and can be coded in the inpatient setting, when documented at the time of discharge. Thank you, Nancy Garcia [facility], CDIS Extension: [phone] Please use your independent medical judgment in providing your response. THIS QUERY IS PART OF THE PERMANENT MEDICAL RECORD Provider Response: Other Other Diagnosis: stage IV pressure ulcer left buttock
--- NOTE | 2021-06-02 10:29 | MHC.CDI.CONC ---
CDI Concurrent Query Documentation Clarification: PHYSICIAN'S DOCUMENTATION REQUEST Date of Query: 06/02/21 1030 Patient Name: Israel Levi Admit Date: 05/28/21 Dear Doctor, A review of the medical record indicates additional documentation may be indicated. Please review below and update the documentation accordingly. Clinical Indicators: Risk Factors/Clinical Indicators/Treatments Wound care assessment 05/31 - Pressure Injury Stage IV left buttock. Siver Alginate, Foam dressing. Based on the above, could you please provide, in the Progress Notes, further information regarding the ulcer/wound: Location of the ulcer/wound, including laterality Type (etiology) of ulcer/wound: Diabetic ulcer Venous stasis ulcer Arterial (ischemic) ulcer Pressure (decubitus) ulcer If a pressure ulcer, please also include the stage* of the ulcer: Stage 1 - Skin intact, non-blanchable redness Stage 2 - Partial thickness loss of dermis, includes intact or open blister Stage 3 - Full thickness tissue not including bone, tendon, or muscle Stage 4 - Full thickness tissue loss, including exposed bones, tendon, or muscle Unstageable Unable to determine *Source: National Pressure Ulcer Advisory Panel (NPUAP) Use of terms such as suspected, likely, concern for, or probable (associated with a specific diagnosis that is being evaluated, monitored, or treated as if it exists) are acceptable and can be coded in the inpatient setting, when documented at the time of discharge. Thank you, Nancy Garcia [facility], CDIS Extension: [phone] Please use your independent medical judgment in providing your response. THIS QUERY IS PART OF THE PERMANENT MEDICAL RECORD Provider Response: Other Other Diagnosis: stage IV pressure ulcer left buttock
--- NOTE | 2021-06-02 11:25 | W.MHC.F2F ---
Service Date Service Date: 06/03/21 Encounter Date of encounter: 06/03/21 Reasons for Services Signs and symptoms assessed: paraplegia Reason for detention: medication management, medication treatment (currently on vancomycin 8am and 8pm) and teach disease management Homebound: Leaving the home is medically contraindicated at this time without the asist of a device and/or another person due th the listed conditions above and below. Reason homebound: bedbound/chairbound Certification: Based on the above findings, I certify that this patient is confined to the home and needs intermittent detention care, physical therapy and/or speech therapy, or continues to need occupational therapy. The patient is under my care, and I have initiated the establishment of the plan of care. The patient will be followed by a physician who will periodically review the plan of care.
--- NOTE | 2021-06-02 11:26 | PM.DS ---
DS: Providers Provider Date of Service: 06/03/21 Date of admission: 05/28/21 21:50 Primary care physician: Jose Grayson MD Consults: 05/28/21 22:15 Consult to General Surgery Routine Consulting Provider: Brando Holden Reason for consultation: osteomyelitis/ischial wound/ulcer Has provider been notified: No Consult to Infectious Diseases Routine Consulting Provider: Sandra Gomez Reason for consultation: osteo, non-healing wound Has provider been notified: Yes 05/30/21 11:44 Consult to Infectious Diseases Routine Consulting Provider: Sandra Gomez Reason for consultation: ostemyelitis Has provider been notified: Yes DS: Diagnosis Discharge Diagnosis (1) Osteomyelitis: Status: Acute (2) Wound cellulitis: Status: Acute (3) Hypertension: Status: Acute DS: Summary Hospital Course Hospital Course: HPI: ?66-year-old male with past medical history of diabetes, hypertension, PE, osteomyelitis of the left foot, history of paraplegia, traumatic? back injury, and decubitus ulcer of left ischial tuberosity region? presents the hospital sent from wound clinic for treatment of nonhealing? decubitus ulcer.? He has had this deep ischial wound since 03/05 status post wound VAC and? reports that he has been on antibiotics for 2 weeks but ran out and saw his infectious disease specialist on Tuesday and was asked to come to the hospital for IV antibiotics. pt denies any fever or chills. reports no significant pain, denies any sob, no cough, no chest pain, no abd pain, n/v, no urinary sx and no lower extremity edema. has chronic reno in place. 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 he was see by surgery, wound vac was removed and recommended not to be replaced, due to history of infection, did not require debridement, he was seen by ID, who recommended MRI which showed acute OM, therefore, recommendations were for 6 weeks IV vancomycin and ertapenem (to be completed at home on jul 09, 2021). patient had negative cultures, picc line was placed and he will be discharged home with VNA. Time Spent with Patient Time attestation: Total time spent providing and/or coordinating discharge services: Discharge coordination time: Greater than 30 minutes Quality: Stroke Does the patient have a stroke diagnosis?: No Physical Exam Vital Signs: Vital Signs: Last Vital Signs Temp 98.5 F 06/02/21 07:14 Pulse 98 06/02/21 07:14 Resp 18 06/02/21 07:14 BP 104/55 L 06/02/21 07:14 Pulse Ox 96 06/02/21 07:14 BMI result Body Mass Index 26.7 Const Other:??no acute distress Resp Other:??clear to auscultation bilaterally no rales rhonchi wheezes Cardio Other:??no S4; positive S1-S2; no S3 murmurs rubs or gallops GI Other:??soft nontender nondistended with normoactive bowel sounds Extrem Other:??no edema bilaterally DS: Data Data Completed and Pending Completed studies during hospitalization [Text1]: Procedures Excision of Duodenum, Via Natural or Artificial Opening Endoscopic, Diagnostic (04/08/21) Excision of Esophagus, Via Natural or Artificial Opening Endoscopic, Diagnostic (04/08/21) Excision of Left Upper Leg Subcutaneous Tissue and Fascia, Open Approach (03/02/21) Excision of Stomach, Pylorus, Via Natural or Artificial Opening Endoscopic, Diagnostic (04/08/21) Transfusion of Nonautologous Red Blood Cells into Peripheral Vein, Percutaneous Approach (04/08/21) Labs on day of discharge: Laboratory Results - last 24 hr 06/01/21 06/01/21 06/01/21 11:32 15:06 19:06 WBC RBC Hgb Hct MCV MCH MCHC RDW Plt Count MPV Immature Gran % (Auto) Neut % (Auto) Lymph % (Auto) [place] % (Auto) Eos % (Auto) Baso % (Auto) Lymph # (Auto) [place] # (Auto) Eos # (Auto) Baso # (Auto) Abs Immat Gran (auto) Absolute Neuts (auto) Absolute Nucleated RBC Nucleated RBC % (auto) Sodium Potassium Chloride Carbon Dioxide Anion Gap BUN Creatinine Estim Creat Clear Calc Estimated GFR POC Glucose 263 H 144 H 173 H Fasting Glucose Calcium Total Bilirubin AST ALT Alkaline Phosphatase Total Protein Albumin Vancomycin Trough 06/01/21 06/02/21 06/02/21 21:26 05:18 05:18 WBC 5.1 RBC 3.13 L Hgb 7.4 L Hct 25.1 L MCV 80.2 MCH 23.6 L MCHC 29.5 L RDW 18.0 H Plt Count 463 H MPV 8.7 L Immature Gran % (Auto) 1.2 H Neut % (Auto) 59.6 Lymph % (Auto) 21.9 [place] % (Auto) 11.0 Eos % (Auto) 5.5 H Baso % (Auto) 0.8 Lymph # (Auto) 1.1 L [place] # (Auto) 0.6 Eos # (Auto) 0.3 Baso # (Auto) 0.0 Abs Immat Gran (auto) 0.06 H Absolute Neuts (auto) 3.0 Absolute Nucleated RBC 0.000 Nucleated RBC % (auto) 0.0 Sodium 135 Potassium 4.5 Chloride 101 Carbon Dioxide 27 Anion Gap 12 BUN 16 Creatinine 0.67 Estim Creat Clear Calc 126.0 Estimated GFR > 60 POC Glucose 211 H Fasting Glucose 130 H Calcium 8.6 Total Bilirubin 0.2 AST 16 ALT 20 Alkaline Phosphatase 67 Total Protein 7.2 Albumin 2.5 L Vancomycin Trough 06/02/21 06/02/21 07:13 08:58 WBC RBC Hgb Hct MCV MCH MCHC RDW Plt Count MPV Immature Gran % (Auto) Neut % (Auto) Lymph % (Auto) [place] % (Auto) Eos % (Auto) Baso % (Auto) Lymph # (Auto) [place] # (Auto) Eos # (Auto) Baso # (Auto) Abs Immat Gran (auto) Absolute Neuts (auto) Absolute Nucleated RBC Nucleated RBC % (auto) Sodium Potassium Chloride Carbon Dioxide Anion Gap BUN Creatinine Estim Creat Clear Calc Estimated GFR POC Glucose 125 H Fasting Glucose Calcium Total Bilirubin AST ALT Alkaline Phosphatase Total Protein Albumin Vancomycin Trough 13.7 Preliminary micro results at discharge 05/28/21 20:06 Blood Culture - Preliminary Blood - Venous No growth after 48 hours. 05/28/21 18:32 Blood Culture - Preliminary Blood - Venous No growth after 48 hours. Discharge Plan Discharge Patient Disposition: Home Health Service Discharge Diagnosis: om Referrals: Jose Grayson MD [Primary Care Provider] - 1 Week Discharge Medications: New vancomycin 1,000 mg recon soln 1,000 mg IV Q12H 38 Days Qty: 1 RF: 0 ertapenem 1 gram recon soln 1 g IV DAILY 42 Days Qty: 10 RF: 0 Continued aspirin 81 mg tablet,delayed release (DR/EC) 1 tab PO DAILY RF: 0 Hold Instructions: Resume on 03/16/21. start after repeat cbc as per pcp /GI. ferrous sulfate [Iron (ferrous sulfate)] 325 mg (65 mg iron) Tablet 325 mg PO BID Qty: 60 RF: 3 Lantus Solostar U-100 Insulin 100 unit/mL (3 mL) insulin pen 20 unit subcut BEDTIME RF: 0 baclofen 20 mg tablet 2 tab PO TID RF: 0 Eliquis 5 mg tablet 1 tab PO BID RF: 0 Hold Instructions: Resume on 04/11/21. latanoprost 0.005 % drops 1 drp ophthalmic (eye) BEDTIME RF: 0 omeprazole 20 mg Capsule,Delayed Release(Dr/Ec) 20 mg PO BID@0630,1630 Qty: 30 RF: 0 lisinopril 5 mg tablet 5 mg PO DAILY RF: 0 gabapentin 800 mg tablet 800 mg PO BID RF: 0 metformin 1,000 mg tablet 1,000 mg PO BID RF: 0 Discharge Orders: Discharge Order (Routine); Ordered 06/03/21 Ordered By: Jarrett John Diet: advance to usual diet Activity on Discharge: As tolerated Stand Alone Forms: Patient Portal Discharge page Care Plan Goals: reocvery Health Concerns: OM Plan of Treatment: 6 weeks, iv vanc and ertapenem, monitor vanc trough, cbc, bmp weekly Assessment: see above
[2021-06-02 11:36] LABS: Glucose, Whole Blood 165 mg/dL (60-115)
[2021-06-02 11:43] VITALS: BP 110/58; PULSE 87; RESP 18; TEMP 36.8; O2SAT 95
[2021-06-02] MEDS: Insulin Lispro 100 UNIT/ML 3 ML VIAL SUBCUT (11:49)
[2021-06-02] MEDS: vancomycin HCL 1,000 MG in 0.9 % Sodium Chloride 250 ML 270 MG IV ×2 (11:50→23:50)
--- NOTE | 2021-06-02 12:52 | P.PNIM_ITS ---
Subjective Subjective Date of Service: 06/02/21 Interval History: cc: worsening left buttock ulcer interval history: no complaints Cardiovascular Cardiovascular: Reports no additional cardiovascular complaints Respiratory Respiratory: Reports no additional respiratory complaints Physical Exam Vital Signs: Vital Signs: Last Vital Signs Temp 98.3 F 06/02/21 11:43 Pulse 87 06/02/21 11:43 Resp 18 06/02/21 11:43 BP 110/58 L 06/02/21 11:43 Pulse Ox 95 06/02/21 11:43 BMI result Body Mass Index 26.7 Const Other:??no acute distress Resp Other:??clear to auscultation bilaterally no rales rhonchi wheezes Cardio Other:??no S4; positive S1-S2; no S3 murmurs rubs or gallops GI Other:??soft nontender nondistended with normoactive bowel sounds Extrem Other:??no edema bilaterally Objective Data Active Medications Acetaminophen (Acetaminophen 325 Mg Tablet) 650 mg PO Q6H PRN PRN Reason: Pain, Mild (Pain Scale 1-3) Last Admin: 05/29/21 12:44 Dose: 650 mg Documented by: JILL Apixaban (Apixaban 5 Mg Tablet) 5 mg PO BID [facility] Last Admin: 06/02/21 08:22 Dose: 5 mg Documented by: CAROLE Aspirin (Aspirin Enteric Coated 81 Mg Tablet.) 81 mg PO DAILY [facility] Last Admin: 06/02/21 08:21 Dose: 81 mg Documented by: CAROLE Baclofen (Baclofen 20 Mg Tablet) 40 mg PO TID [facility] Last Admin: 06/02/21 08:20 Dose: 40 mg Documented by: CAROLE Heparin Sodium (Porcine) 50 (units/ Sodium Chloride 5 ml) 0 units IVFLUSH QSHIFT [facility] Last Admin: 06/02/21 08:24 Dose: 50 unit Documented by: CAROLE Dextrose (Dextrose 50 % 25 Gm/50 Ml Vial) 25 gm IVPUSH Q15M PRN; Protocol PRN Reason: per Hypoglycemia Standing Ord. Docusate Sodium (Docusate Sodium 100 Mg Capsule) 100 mg PO DAILY PRN PRN Reason: Constipation Ferrous Sulfate (Ferrous Sulfate 324 Mg Tablet.) 324 mg PO BID [facility] Last Admin: 06/02/21 08:21 Dose: 324 mg Documented by: CAROLE Gabapentin (Gabapentin 400 Mg Capsule) 800 mg PO BID [facility] Last Admin: 06/02/21 08:22 Dose: 800 mg Documented by: CAROLE Glucose (Glucose Gel 15 Gm Gel..Gram.) 15 gm PO Q15M PRN; Protocol PRN Reason: per Hypoglycemia Standing Ord. Meropenem 1 gm/ Sodium (Chloride) 100 mls @ 200 mls/hr IV Q8H [facility] Last Infusion: 06/02/21 08:55 Dose: 0 mls/hr Documented by: CAROLE Vancomycin HCl 1,000 mg/ (Sodium Chloride) 270 mls @ 270 mls/hr IV Q12H [facility] Last Admin: 06/02/21 11:50 Dose: 270 mls/hr Documented by: CAROLE Insulin Glargine (Insulin Glargine,Hum.Rec.Anlog 100 Unit/Ml 10 Ml Vial) 20 unit SUBCUT BEDTIME [facility] Last Admin: 06/01/21 21:19 Dose: 20 unit Documented by: ANJUM Insulin Human Lispro (Insulin Lispro 100 Unit/Ml 3 Ml Vial) 0 unit SUBCUT QIDACHS [facility]; Protocol Last Admin: 06/02/21 11:49 Dose: 2 unit Documented by: CAROLE Latanoprost (Latanoprost 0.005 % Ophth [place] 2.5 Ml Drops) 1 drop EYE-BOTH BEDTIME [facility] Last Admin: 06/01/21 21:20 Dose: 1 drop Documented by: ANJUM Lisinopril (Lisinopril 5 Mg Tablet) 5 mg PO DAILY [facility]; Protocol Last Admin: 06/02/21 08:21 Dose: 5 mg Documented by: CAROLE Metformin HCl (Metformin Hcl 1,000 Mg Tablet) 1,000 mg PO BID@0900,1700 [facility] Last Admin: 06/02/21 08:20 Dose: 1,000 mg Documented by: CAROLE Omeprazole (Omeprazole 20 Mg Capsule.) 20 mg PO BID@0630,1630 [facility] Last Admin: 06/02/21 06:45 Dose: 20 mg Documented by: FRANKO Ondansetron HCl (Ondansetron Hcl 4 Mg/2 Ml Vial) 4 mg IVPUSH Q8H PRN PRN Reason: Nausea and Vomiting Oxycodone HCl (Oxycodone Hcl Immed Release 5 Mg Tablet) 5 mg PO Q4H PRN PRN Reason: Pain, Moderate (Pain Scale 4-6 Last Admin: 06/01/21 21:24 Dose: 5 mg Documented by: ANJUM Pharmacy Consult (Consult Rx Vancomycin Dosing) 1 each MISCELLANE DAILY PRN PRN Reason: Consult order Labs CBC & Chem 7: 06/02/21 05:18 06/02/21 05:18 Labs: Laboratory Results - last 24 hr 06/01/21 06/01/21 06/01/21 15:06 19:06 21:26 MCV MCH MCHC RDW Plt Count MPV Immature Gran % (Auto) Neut % (Auto) Lymph % (Auto) [place] % (Auto) Eos % (Auto) Baso % (Auto) Lymph # (Auto) [place] # (Auto) Eos # (Auto) Baso # (Auto) Abs Immat Gran (auto) Absolute Neuts (auto) Absolute Nucleated RBC Nucleated RBC % (auto) Anion Gap Estim Creat Clear Calc Estimated GFR POC Glucose 144 H 173 H 211 H Fasting Glucose Calcium Total Bilirubin AST ALT Alkaline Phosphatase Total Protein Albumin Vancomycin Trough 06/02/21 06/02/21 06/02/21 05:18 05:18 07:13 MCV 80.2 MCH 23.6 L MCHC 29.5 L RDW 18.0 H Plt Count 463 H MPV 8.7 L Immature Gran % (Auto) 1.2 H Neut % (Auto) 59.6 Lymph % (Auto) 21.9 [place] % (Auto) 11.0 Eos % (Auto) 5.5 H Baso % (Auto) 0.8 Lymph # (Auto) 1.1 L [place] # (Auto) 0.6 Eos # (Auto) 0.3 Baso # (Auto) 0.0 Abs Immat Gran (auto) 0.06 H Absolute Neuts (auto) 3.0 Absolute Nucleated RBC 0.000 Nucleated RBC % (auto) 0.0 Anion Gap 12 Estim Creat Clear Calc 126.0 Estimated GFR > 60 POC Glucose 125 H Fasting Glucose 130 H Calcium 8.6 Total Bilirubin 0.2 AST 16 ALT 20 Alkaline Phosphatase 67 Total Protein 7.2 Albumin 2.5 L Vancomycin Trough 06/02/21 06/02/21 08:58 11:28 MCV MCH MCHC RDW Plt Count MPV Immature Gran % (Auto) Neut % (Auto) Lymph % (Auto) [place] % (Auto) Eos % (Auto) Baso % (Auto) Lymph # (Auto) [place] # (Auto) Eos # (Auto) Baso # (Auto) Abs Immat Gran (auto) Absolute Neuts (auto) Absolute Nucleated RBC Nucleated RBC % (auto) Anion Gap Estim Creat Clear Calc Estimated GFR POC Glucose 165 H Fasting Glucose Calcium Total Bilirubin AST ALT Alkaline Phosphatase Total Protein Albumin Vancomycin Trough 13.7 Assessment and Plan (1) Decubital ulcer: Status: Acute Assessment and Plan: 66 yo M with hx of DM, osteomylitis and now non-healing wound presents to the hospital, sent by wound clinic for IV abx Osteomyelitis( left ischium/acetabulum) continue IV vancomycin() and switch to Ertapenem on discharge(day) -Wound VAC removed by surgery; wet/dry dressing placed for hospitalization. Resume eliquis. - s/p PICC .DMII insulin metformin history of PE on eliquis HTN - stable - continue lisinpirl Acute on chronic anemia of chronic disease - transfused 1 unit packed red cells with good response -stable plan for dc home with vna 06/03/21 Quality Stroke Does the patient have a stroke diagnosis?: No VTE Prior VTE?: No VTE Risk Level:: Medical - moderate - high VTE Device Contraindication: Treatment Not Indicated VTE Drug Contraindication: N/A - Med Ordered
--- NOTE | 2021-06-02 12:57 | MHC.CM.PN ---
CHANGE OF PLAN. PATIENT WILL GET BOTH DOSES OF VANCO, ANOTHER DOSE TOMORROW AND THEN DC HOME WITH [facility].
[2021-06-02 15:37] VITALS: BP 112/61; PULSE 88; RESP 18; TEMP 37.1; O2SAT 97
[2021-06-02] MEDS: oxyCODONE HCl Immed Release 5 MG TABLET PO (16:14)
[2021-06-02 16:15] LABS: Glucose, Whole Blood 135 mg/dL (60-115)
[2021-06-02 19:54] VITALS: BP 103/52; PULSE 105; RESP 18; TEMP 36.9; O2SAT 98
[2021-06-02 20:18] LABS: Glucose, Whole Blood 142 mg/dL (60-115)
[2021-06-02] MEDS: Insulin Glargine,Hum.rec.anlog 100 UNIT/ML 10 ML VIAL 20 UNIT SUBCUT (20:29)
[2021-06-02] MEDS: Latanoprost 0.005 % Ophth Sol 2.5 ML DROPS 1 DROP EYE-BOTH (20:33)
[2021-06-02 23:24] VITALS: BP 112/58; PULSE 94; RESP 16; TEMP 37; O2SAT 99
[2021-06-03] MEDS: oxyCODONE HCl Immed Release 5 MG TABLET PO ×3 (00:09→12:18)
[2021-06-03 04:04] VITALS: BP 84/47; PULSE 96; RESP 16; TEMP 37.6; O2SAT 95
--- NOTE | 2021-06-03 05:31 | PM.EVENT ---
Event Note Date of Service: 06/03/21 Event Note: soft blood pressure: Patient asymptomatic. Given 500 cc IV fluid bolus. Held lisinopril for now.
[2021-06-03] MEDS: 0.9 % Sodium Chloride 500 ML IV (06:04)
[2021-06-03] MEDS: Omeprazole 20 MG CAPSULE.DR PO (06:26)
[2021-06-03 07:17] VITALS: BP 118/57; PULSE 89; RESP 18; TEMP 36.9; O2SAT 95
[2021-06-03 07:25] LABS: Glucose, Whole Blood 92 mg/dL (60-115)
[2021-06-03] MEDS: vancomycin HCL 1,000 MG in 0.9 % Sodium Chloride 250 ML 270 MG IV (07:36)
[2021-06-03] MEDS: Heparin Sodium,Porcine Flush 50 UNITS, 0.9 % Sodium Chloride Flush 5 ML IVFLUSH (07:37)
[2021-06-03] MEDS: Aspirin Enteric Coated 81 MG TABLET.DR PO (07:40)
[2021-06-03] MEDS: metFORMIN HCl 1,000 MG TABLET 1000 MG PO (07:40)
[2021-06-03] MEDS: Baclofen 20 MG TABLET 40 MG PO (07:40)
[2021-06-03] MEDS: Gabapentin 400 MG CAPSULE 800 MG PO (07:41)
[2021-06-03] MEDS: Apixaban 5 MG TABLET PO (07:42)
[2021-06-03] MEDS: Ferrous Sulfate 324 MG TABLET.DR PO (07:42)
--- NOTE | 2021-06-03 09:12 | MHC.CM.PN ---
PATIENT TO RETURN HOME TODAY WITH [facility]. PATIENT STATES THAT HIS DAUGHTER WILL PROVIDE TRANSPORTATION. IMM 06/02 IN CHART
[2021-06-03 11:09] LABS: COVID-19 Test Negative (Negative)
[2021-06-03 11:35] VITALS: BP 106/51; PULSE 95; RESP 18; TEMP 36.7; O2SAT 98
[2021-06-03 11:38] LABS: Glucose, Whole Blood 159 mg/dL (60-115)
[2021-06-03] MEDS: Insulin Lispro 100 UNIT/ML 3 ML VIAL SUBCUT (12:17)
== END 2021-06-03 12:30 | disposition home health service (06) | DRG 637 ==
LOC: HO.ED 17:57 → HO.EDOVER 21:58 → HO.S3 05-29 16:47
PROVIDERS: Hospitalist; Admitting Provider Internal Medicine; Emergency Provider Internal Medicine; PCP Internal Medicine; Visit Provider Internal Medicine
DX: E11.69 Type 2 diabetes mellitus with other specified complication (principal); L89.324 Pressure ulcer of left buttock, stage 4; G82.20 Paraplegia, unspecified; M86.9 Osteomyelitis, unspecified; M86.28 Subacute osteomyelitis, other site; L89.222 Pressure ulcer of left hip, stage 2; L89.212 Pressure ulcer of right hip, stage 2; D63.8 Anemia in other chronic diseases classified elsewhere; I10 Essential (primary) hypertension; Z20.822 Contact with and (suspected) exposure to COVID-19; Z86.711 Personal history of pulmonary embolism; Z79.4 Long term (current) use of insulin; Z79.01 Long term (current) use of anticoagulants; Z79.82 Long term (current) use of aspirin; Z79.84 Long term (current) use of oral hypoglycemic drugs; Z79.899 Other long term (current) drug therapy
CPT/HCPCS: 36415; 36573; 72197; 80048; 80053; 80202; 82947; 83605; 85025; 85027; 85652; 86140; 86850; 86900; 86901; 86923; 87040; 87635; 99212; 99285; A9585; C1751; J1335; J1642; J2185; J2543; J3370; P9016

== ENCOUNTER 2021-06-09 10:48 | Outpatient (REF) | payer MEDICARE, MEDICAID, SELFPAY ==
[2021-06-09 10:53] LABS: MANUAL DIFF FLAG NO
[2021-06-09 10:58] LABS: Basophils Percent Auto 0.4 % (0-2); Eosinophils Absolute Auto 0.4 X10*3/uL (0.0-0.4); Eosinophils Percent Auto 7.9 % (0-4); Hematocrit 25.9 % (42.0-52.0); Hemoglobin 7.7 g/dl (14.0-18.0); Imm Gran Abs Auto 0.02 X10*3/uL (0.00-0.03); Imm Gran Pct Auto 0.4 % (0.0-0.4); Lymphocytes Absolute Auto 1.3 X10*3/uL (1.2-4.9); Lymphocytes Percent Auto 24.3 % (20-40); Mean Corpuscular HGB Conc 29.7 g/dl (31.0-36.0); Mean Corpuscular Hemoglobin 23.6 pg (27.0-33.0); Mean Corpuscular Volume 79.4 fL (80.0-98.0); Mean Platelet Volume 9.6 fL (9.4-12.4); Monocytes Absolute Auto 0.4 X10*3/uL (0.1-1.2); Monocytes Percent Auto 8.3 % (2-11); Neutrophils Absolute Auto 3.1 x10*3/uL (2.0-8.3); Neutrophils Percent Auto 58.7 % (45-73); Platelet Count 347 X10*3/uL (160-400); Red Blood Count 3.26 X10*6/uL (4.60-5.80); Red Cell Distribution Width 17.7 % (11.0-16.0); White Blood Count 5.3 X10*3/uL (4.8-10.8)
[2021-06-09 11:36] LABS: Vancomycin Trough 16.7 mcg/mL (10.0-20.0)
[2021-06-09 11:57] LABS: Alanine Aminotransferase 24 U/L (0-40); Albumin Level 2.7 g/dL (3.5-5.0); Alkaline Phosphatase 93 U/L (39-117); Anion Gap 11 (12-20); Aspartate Amino Transferase 22 U/L (5-37); Bilirubin Total < 0.2 mg/dL (0.0-1.0); Blood Urea Nitrogen 17 mg/dL (9-16); Calcium 8.7 mg/dL (8.4-10.2); Carbon Dioxide 28 mmol/L (22-29); Chloride 103 mmol/L (96-108); Estimated Glomerular Filt Rate > 60; Glucose Random 102 mg/dL (60-115); Potassium 4.6 mmol/L (3.3-5.1); Sodium 137 mmol/L (135-145); Total Protein 7.5 g/dL (6.5-8.0)
== END 2021-06-09 10:49 | disposition home or self-care (01) ==
LOC: HO.LNP 10:48
PROVIDERS: Visit Provider Internal Medicine
DX: L89.320 Pressure ulcer of left buttock, unstageable (principal); Z79.899 Other long term (current) drug therapy
CPT/HCPCS: 80053; 80202; 85025

== ENCOUNTER 2021-06-16 09:59 | Outpatient (REF) | payer MEDICARE, MEDICAID, SELFPAY ==
[2021-06-16 10:02] LABS: MANUAL DIFF FLAG NO
[2021-06-16 10:15] LABS: Basophils Absolute Auto 0.1 X10*3/uL (0.0-0.2); Basophils Percent Auto 1.5 % (0-2); Eosinophils Absolute Auto 0.4 X10*3/uL (0.0-0.4); Eosinophils Percent Auto 7.5 % (0-4); Hematocrit 26.4 % (42.0-52.0); Hemoglobin 7.8 g/dl (14.0-18.0); Imm Gran Abs Auto 0.01 X10*3/uL (0.00-0.03); Imm Gran Pct Auto 0.2 % (0.0-0.4); Lymphocytes Absolute Auto 1.3 X10*3/uL (1.2-4.9); Mean Corpuscular HGB Conc 29.5 g/dl (31.0-36.0); Mean Corpuscular Hemoglobin 23.6 pg (27.0-33.0); Mean Corpuscular Volume 79.8 fL (80.0-98.0); Monocytes Absolute Auto 0.4 X10*3/uL (0.1-1.2); Monocytes Percent Auto 7.9 % (2-11); Neutrophils Absolute Auto 2.7 x10*3/uL (2.0-8.3); Neutrophils Percent Auto 55.9 % (45-73); Platelet Count 373 X10*3/uL (160-400); Red Blood Count 3.31 X10*6/uL (4.60-5.80); Red Cell Distribution Width 18.3 % (11.0-16.0); White Blood Count 4.8 X10*3/uL (4.8-10.8)
[2021-06-16 11:26] LABS: Alanine Aminotransferase 19 U/L (0-40); Albumin Level 2.8 g/dL (3.5-5.0); Alkaline Phosphatase 91 U/L (39-117); Anion Gap 9 (12-20); Aspartate Amino Transferase 19 U/L (5-37); Bilirubin Total < 0.2 mg/dL (0.0-1.0); Blood Urea Nitrogen 15 mg/dL (9-16); Calcium 8.8 mg/dL (8.4-10.2); Carbon Dioxide 29 mmol/L (22-29); Chloride 105 mmol/L (96-108); Estimated Glomerular Filt Rate > 60; Glucose Random 124 mg/dL (60-115); Potassium 4.4 mmol/L (3.3-5.1); Sodium 139 mmol/L (135-145); Total Protein 7.2 g/dL (6.5-8.0); Vancomycin Trough 16.8 mcg/mL (10.0-20.0)
== END 2021-06-16 10:00 | disposition home or self-care (01) ==
LOC: HO.HVNA 09:59
PROVIDERS: Visit Provider Internal Medicine
DX: L89.320 Pressure ulcer of left buttock, unstageable (principal)
CPT/HCPCS: 36415; 80053; 80202; 85025

== ENCOUNTER 2021-06-17 16:33 | Emergency (ER) | payer MEDICARE, MEDICAID, SELFPAY ==
[2021-06-17 16:44] VITALS: BP 108/53; PULSE 84; RESP 16; TEMP 36.9; O2SAT 100; BMI 26.9
--- NOTE | 2021-06-17 17:52 | PC.NURSE ---
ED Charge nurse Pamela called radiology and reported pt's PICC line was not working. I went over to ED to changed the clave on the PICC line after flushing did not resolve the issue. Nohelia Pyle RN and myself changed the dressing and noticed the PICC line was at 1cm instead of 0CM as reported on insertion 06/01/2021.. Dr Narvaez was called and given all the information and stated no need for cxr . Picc line can be used as per Dr Narvaez. Translater was at beside to interp. all information to pt due to Pt was mostly anguillan speaking only. ED Financial Services Manager and MD aware of this. PICC line was flushed twice which was patent and blood return.
--- NOTE | 2021-06-17 17:54 | ED_ITS ---
HPI - General Adult General Chief complaint: General Medical Stated complaint: CLOGGED PICC LINE PER VISITING NURSE Time Seen by Provider: 06/17/21 17:00 Source: patient and EMS Mode of arrival: EMS History of Present Illness HPI narrative: 66-year-old male with a PMHx diabetes, HTN for right PE, osteomyelitis of left foot, paraplegic, traumatic back injury, acute on chronic osteomyelitis of the left ischium s/p admission to our facility discharged on 06/03/21 s/p PICC line placement with 6 weeks of IV Vancomycin and Ertapenem, presenting to the ED complaining of non-patent PICC line since last night. Patient reports last dose of antibiotics was last night, missed this morning dose of Vancomycin. Denies fever, chills, trauma, drainage from wounds. Reports VNA changed dressings today Onset (ago): day(s) Related Data Home Medications Medication Instructions Recorded Confirmed gabapentin 800 mg tablet 800 mg PO BID 02/22/20 05/28/21 lisinopril 5 mg tablet 5 mg PO DAILY 02/22/20 05/28/21 metformin 1,000 mg tablet 1,000 mg PO BID 02/22/20 05/28/21 aspirin 81 mg tablet,delayed 1 tab PO DAILY 09/04/20 05/28/21 release apixaban 5 mg tablet 1 tab PO BID 03/03/21 05/28/21 (Eliquis) baclofen 20 mg tablet 2 tab PO TID 03/03/21 05/28/21 insulin glargine 100 unit/mL 20 unit SUBCUT BEDTIME 03/03/21 05/28/21 (3 mL) subcutaneous pen (Lantus Solostar U-100 Insulin) latanoprost 0.005 % eye 1 drp OPHTHALMIC (EYE) 03/03/21 05/28/21 drops BEDTIME Previous Rx's Medication Instructions Recorded omeprazole 20 mg capsule,delayed 20 mg PO BID@0630,1630 #30 cap 03/09/21 release ferrous sulfate 325 mg (65 mg 325 mg PO BID #60 tab 04/15/21 iron) tablet (Iron (ferrous sulfate)) ertapenem 1 gram solution for 1 g IV DAILY 42 Days #10 ea 06/02/21 injection vancomycin 1,000 mg intravenous 1,000 mg IV Q12H 38 Days #1 ea 06/02/21 injection Allergies Allergy/AdvReac Type Severity Reaction Status Date / Time levofloxacin [From Allergy Intermediate HIVES, Verified 06/17/21 16:57 LEVAQUIN] SKIN RASH seafood Allergy Intermediate Itching Verified 06/17/21 16:57 throat shellfish derived Allergy Intermediate itching Verified 06/17/21 16:57 throat Review of Systems Verdana 4l Review of Systems: Verdana 4d Verdana 4d Constitutional: No Fever, No Chills, No Fatigue, No Malaise ENT/Mouth: No Ear Pain, No Nasal Congestion, No sore throat, No Rhinorrhea, No Swallowing Difficulty Eyes: No Eye Pain, No Swelling, No Redness Cardiovascular: No Chest Pain, No SOBSOB Respiratory: No Cough, No Dyspnea Gastrointestinal: No Nausea, No Vomiting, No Diarrhea, No Constipation, No Abdominal pain Genitourinary: No Dysuria, No Hematuria, No Flank Pain Musculoskeletal: No joint pain, No Myalgias, No Joint Swelling Skin: +chronic wounds Neuro: No Weakness, No Numbness, No Paresthesias, No Headache Yes all other systems are reviewed and are negative [facility] Past Medical History Attestation statement: The following information was validated with the patient. Medical History Decubitus ulcer of right ischial tuberosity region Diabetes HTN (hypertension) Hx pulmonary embolism Osteomyelitis Osteomyelitis of left foot Paraplegia Right foot infection (Unknown) Surgical History History of spinal surgery Hx of colonoscopy Hx of foot surgery Family History Family History Father No problems noted. Mother No problems noted. Brother No problems noted. Sister No problems noted. Sister No problems noted. Sister No problems noted. Son No problems noted. Son No problems noted. Son No problems noted. Son No problems noted. Daughter No problems noted. Daughter No problems noted. Social History Social History Household Members: Family Household Members Other:: roommate Housing: House Do you presently have visiting nurse or other home services: Yes Alcohol intake: never Patient Tobacco Use Status: Never used Tobacco Second Hand Smoke Exposure: No Advance Directives: Yes Advance Directives on File: Yes Advance Directives Date on File: 03/10/21 service: No Current occupational status: disabled Physical Exam Verdana 4l Vital Signs: Verdana 4d Verdana 4d Vital Signs: Verdana 4d Verdana 4Bd Last Vital Signs Verdana 4d [place] 4d [place] 4d Temp 98.5 F 06/17/21 16:44 [place] 4d Pulse 84 06/17/21 16:44 [place] 4d Resp 16 06/17/21 16:44 BP 108/53 L 06/17/21 16:44 Pulse Ox 100 06/17/21 16:44 BMI result Body Mass Index 26.9 Const: General: cooperative, healthy appearing, no acute distress, well developed, alert and awake Orientation/consciousness: patient oriented x3 Limitations : no limitations HENMT: Head: Yes normal to inspection Ears: hearing grossly normal bilaterally General nose exam: Normal external nose present Face and sinus: Yes normal facial exam Eyes: General: appearance normal, both eyes and all related structures EOM: EOMs intact bilaterally Neck: Neck: Yes normal visual inspection and Yes no meningeal signs Resp: Effort & Inspection: normal respiratory effort and no respiratory distress Cardio: Rate: regular rate Heart sounds: S1 normal heart sound present and S2 normal heart sound present GI: Inspection: Yes normal to inspection Skin: Other: PICC line in place to RUE, dressing intact, no evidence of infection. + Decubitus wounds which appear clean, no surrounding erythema, no drainage, no fluctuance/malodor or induration Rashes: no rashes Neuro: General: patient oriented x3 and no meningeal signs Gait exam (Neuro): Normal gait present Extrem: General: Yes normal to inspection Course Course Course Narrative: -Two IR nurse's evaluated Patient in the ED. PICC line was accidentally pulled out 1 cm and clave needed to be changed. Line was fixed, flushed, and also has blood return. Dr. Narvaez, reported no need for CXR verification of placement. Recommended that clave be changed with every dressing changeby VNA, this was discussed with patient > plan to DC home and patient can administer night doses of antibiotics Medical Decision Making MDM Narrative Medical decision making narrative: 66-year-old male with a PMHx diabetes, HTN for right PE, osteomyelitis of left foot, paraplegic, traumatic back injury, acute on chronic osteomyelitis of the left ischium s/p admission to our facility discharged on 06/03/21 s/p PICC line placement with 6 weeks of IV Vancomycin and Ertapenem, presenting to the ED complaining of non-patent PICC line since last night. On exam vital signs stable, NAD/nontoxic appearing, physical exam as above, wounds appear clean/healing/not infected. PICC line intact, not flushing or patent Plan: Contact IR nurse Medical Records Medical records reviewed: Yes I reviewed the patient's medical records. Lab Data Lab results reviewed: Yes I reviewed the patient's lab results. Discharge Plan Discharge Clinical Impression: Occluded PICC line Patient Disposition: Home, Self-Care Instructions: PICC (Peripherally Inserted Central Catheter) (DC) Additional Instructions: Your PICC line was fixed today in the ED. Make sure your visiting nurse is changing the blue cap/cleave with every dressing change Please give herself your night doses of your antibiotics If anything goes wrong with your PICC line please return to the emergency department Gibbs l?karla PICC fue arreglada hoy en el ED. Aseg?rese de que gibbs enfermero visitante est? cambiando la gorra brynn con cada cambio de vendaje. Por favor, administre florentino dosis nocturnas de florentino antibi?ticos. Si algo sale mal con gibbs l?karla PICC, regrese al departamento de emergencias. Prescriptions: No Action aspirin 81 mg tablet,delayed release (DR/EC) 1 tab PO DAILY 0RF Hold Instructions: Resume on 03/16/21. start after repeat cbc as per pcp /GI. ferrous sulfate [Iron (ferrous sulfate)] 325 mg (65 mg iron) Tablet 325 mg PO BID Qty: 60 3RF Lantus Solostar U-100 Insulin 100 unit/mL (3 mL) insulin pen 20 unit subcut BEDTIME 0RF baclofen 20 mg tablet 2 tab PO TID 0RF Eliquis 5 mg tablet 1 tab PO BID 0RF Hold Instructions: Resume on 04/11/21. latanoprost 0.005 % drops 1 drp ophthalmic (eye) BEDTIME 0RF omeprazole 20 mg Capsule,Delayed Release(Dr/Ec) 20 mg PO BID@0630,1630 Qty: 30 0RF vancomycin 1,000 mg recon soln 1,000 mg IV Q12H 38 Days Qty: 1 0RF Rx Instructions: end jul 09 ertapenem 1 gram recon soln 1 g IV DAILY 42 Days Qty: 10 0RF Rx Instructions: end jul 09, 2021 lisinopril 5 mg tablet 5 mg PO DAILY 0RF gabapentin 800 mg tablet 800 mg PO BID 0RF metformin 1,000 mg tablet 1,000 mg PO BID 0RF Referrals: Jose Grayson MD [Primary Care Provider] - 2 days Print Language: Ecuadorean
== END 2021-06-17 19:00 | disposition home or self-care (01) ==
PROVIDERS: Emergency Provider Internal Medicine; PCP Internal Medicine
DX: T82.594A Other mechanical complication of infusion catheter, initial encounter (principal); M86.172 Other acute osteomyelitis, left ankle and foot; Y82.9 Unspecified medical devices associated with adverse incidents; Y92.9 Unspecified place or not applicable; Z79.899 Other long term (current) drug therapy
CPT/HCPCS: 99283

== ENCOUNTER 2021-06-23 10:40 | Outpatient (REF) | payer MEDICARE, MEDICAID, SELFPAY ==
[2021-06-23 10:45] LABS: MANUAL DIFF FLAG NO
[2021-06-23 10:51] LABS: Basophils Absolute Auto 0.1 X10*3/uL (0.0-0.2); Eosinophils Absolute Auto 0.5 X10*3/uL (0.0-0.4); Eosinophils Percent Auto 8.9 % (0-4); Hematocrit 28.3 % (42.0-52.0); Hemoglobin 8.3 g/dl (14.0-18.0); Imm Gran Abs Auto 0.02 X10*3/uL (0.00-0.03); Imm Gran Pct Auto 0.4 % (0.0-0.4); Lymphocytes Absolute Auto 1.4 X10*3/uL (1.2-4.9); Lymphocytes Percent Auto 27.8 % (20-40); Mean Corpuscular HGB Conc 29.3 g/dl (31.0-36.0); Mean Corpuscular Hemoglobin 23.5 pg (27.0-33.0); Mean Corpuscular Volume 80.2 fL (80.0-98.0); Monocytes Absolute Auto 0.4 X10*3/uL (0.1-1.2); Monocytes Percent Auto 8.3 % (2-11); Neutrophils Absolute Auto 2.7 x10*3/uL (2.0-8.3); Neutrophils Percent Auto 53.6 % (45-73); Platelet Count 288 X10*3/uL (160-400); Red Blood Count 3.53 X10*6/uL (4.60-5.80); White Blood Count 5.1 X10*3/uL (4.8-10.8)
[2021-06-23 12:15] LABS: Vancomycin Trough 17.2 mcg/mL (10.0-20.0)
[2021-06-23 13:20] LABS: Alanine Aminotransferase 18 U/L (0-40); Alkaline Phosphatase 94 U/L (39-117); Anion Gap 10 (12-20); Aspartate Amino Transferase 18 U/L (5-37); Bilirubin Total 0.3 mg/dL (0.0-1.0); Blood Urea Nitrogen 17 mg/dL (9-16); Calcium 8.8 mg/dL (8.4-10.2); Carbon Dioxide 31 mmol/L (22-29); Chloride 105 mmol/L (96-108); Estimated Glomerular Filt Rate > 60; Glucose Random 67 mg/dL (60-115); Potassium 4.5 mmol/L (3.3-5.1); Sodium 141 mmol/L (135-145); Total Protein 7.4 g/dL (6.5-8.0)
== END 2021-06-23 10:41 | disposition home or self-care (01) ==
LOC: HO.HVNA 10:40
PROVIDERS: Visit Provider Internal Medicine
DX: M86.18 Other acute osteomyelitis, other site (principal); Z79.899 Other long term (current) drug therapy
CPT/HCPCS: 36415; 80053; 80202; 85025

== ENCOUNTER 2021-06-24 12:54 | Emergency (ER) | payer MEDICARE, MEDICAID, SELFPAY ==
[2021-06-24 13:13] VITALS: BP 116/54; PULSE 76; RESP 19; TEMP 36.6; O2SAT 97; BMI 27.7
--- NOTE | 2021-06-24 16:23 | ED.GENADULT ---
HPI - General Adult General Chief complaint: General Medical <Jessica Pierce ALINA - Last Filed: 06/24/21 18:16> Stated complaint: pic line blocked <Jessica Pierce ALINA - Last Filed: 06/24/21 18:16> Time Seen by Provider: 06/24/21 14:41 <Jessica PierceALINA - Last Filed: 06/24/21 18:16> Source: patient <Jessica Pierce ALINA - Last Filed: 06/24/21 18:16> Mode of arrival: ambulatory <Jessica Pierce ALINA - Last Filed: 06/24/21 18:16> Limitations: no limitations <Jessica Pierce ALINA - Last Filed: 06/24/21 18:16> History of Present Illness HPI narrative: Patient is a 66-year-old male with a past medical history of diabetes, hypertension, paraplegic, traumatic back injury, acute with chronic osteomyelitis of the left ischium. The patient was discharged on 06/03/2021 with a PICC line to the right upper extremity to receive 6 weeks of IV vancomycin and ertapenem. Today he is presenting reporting that he has not been able to flush his PICC line since this morning or administer his antibiotics. States dressing to his PICC line was changed yesterday by visiting nurses and he received 2 doses of antibiotics after the dressing change without complication. He denies any recent injury or trauma to that extremity, does not believe the PICC line was carried out in any way. Denies fevers, chills, pain to the extremity, swelling to the arm, chest pain, shortness breath, dyspnea with exertion. <Jessica PierceALINA - Last Filed: 06/24/21 18:16> Related Data Home medications: Home Medications Medication Instructions Recorded Confirmed gabapentin 800 mg tablet 800 mg PO BID 02/22/20 06/22/21 lisinopril 5 mg tablet 5 mg PO DAILY 02/22/20 06/22/21 metformin 1,000 mg tablet 1,000 mg PO BID 02/22/20 06/22/21 aspirin 81 mg tablet,delayed 1 tab PO DAILY 09/04/20 06/22/21 release apixaban 5 mg tablet (Eliquis) 1 tab PO BID 03/03/21 06/22/21 baclofen 20 mg tablet 2 tab PO TID 03/03/21 06/22/21 insulin glargine 100 unit/mL (3 20 unit SUBCUT BEDTIME 03/03/21 06/22/21 mL) subcutaneous pen (Lantus Solostar U-100 Insulin) latanoprost 0.005 % eye drops 1 drp OPHTHALMIC (EYE) BEDTIME 03/03/21 06/22/21 Previous Rx's Medication Instructions Recorded omeprazole 20 mg capsule,delayed 20 mg PO BID@0630,1630 #30 cap 03/09/21 release ferrous sulfate 325 mg (65 mg 325 mg PO BID #60 tab 04/15/21 iron) tablet (Iron (ferrous sulfate)) ertapenem 1 gram solution for 1 g IV DAILY 42 Days #10 ea 06/02/21 injection vancomycin 1,000 mg intravenous 1,000 mg IV Q12H 38 Days #1 ea 06/02/21 injection <Jessica Pierce CNP - Last Filed: 06/24/21 18:16> Allergies/adverse reactions: Allergies Allergy/AdvReac Type Severity Reaction Status Date / Time levofloxacin [From LEVAQUIN] Allergy Intermediate HIVES, Verified 06/22/21 14:39 SKIN RASH seafood Allergy Intermediate Itching Verified 06/22/21 14:39 throat shellfish derived Allergy Intermediate itching Verified 06/22/21 14:39 throat <Jessica Pierce CNP - Last Filed: 06/24/21 18:16> Review of Systems Review of Systems: Constitutional: No Fever, No Chills, No Fatigue, No Malaise ENT/Mouth: No Ear Pain, No Nasal Congestion, No sore throat, No Rhinorrhea, No Swallowing Difficulty Eyes: No Eye Pain, No Swelling, No Redness Cardiovascular: No Chest Pain, No SOB Respiratory: No Cough, No Dyspnea Gastrointestinal: No Nausea, No Vomiting, No Diarrhea, No Constipation, No Abdominal pain Genitourinary: No Dysuria, No Hematuria, No Flank Pain Musculoskeletal: No joint pain, No Myalgias, No Joint Swelling Skin: +chronic wounds Neuro: No Weakness, No Numbness, No Paresthesias, No Headache <Jessica Pierce CNP - Last Filed: 06/24/21 18:16> PMFSH Past Medical History Attestation statement: The following information was validated with the patient. <Jessica Pierce CNP - Last Filed: 06/24/21 18:16> Source: old records reviewed <Jessica Pierce CNP - Last Filed: 06/24/21 18:16> Medical History: Medical History Decubitus ulcer of right ischial tuberosity region Diabetes HTN (hypertension) Hx pulmonary embolism Osteomyelitis Osteomyelitis of left foot Paraplegia Right foot infection (Unknown) <Jessica Pierce CNP - Last Filed: 06/24/21 18:16> Surgical History: Surgical History History of spinal surgery Hx of colonoscopy Hx of foot surgery <Jessica Pierce CNP - Last Filed: 06/24/21 18:16> Family History Family History: Family History Father No problems noted. Mother No problems noted. Brother No problems noted. Sister No problems noted. Sister No problems noted. Sister No problems noted. Son No problems noted. Son No problems noted. Son No problems noted. Son No problems noted. Daughter No problems noted. Daughter No problems noted. <Jessica Pierce CNP - Last Filed: 06/24/21 18:16> Social History Social History: Social History Household Members: Family Household Members Other:: roommate Housing: House Do you presently have visiting nurse or other home services: Yes Alcohol intake: never Patient Tobacco Use Status: Never used Tobacco Second Hand Smoke Exposure: No Use of substances other than those prescribed or required for medical reasons: No Advance Directives: Yes Advance Directives on File: Yes Advance Directives Date on File: 03/10/21 service: No Current occupational status: disabled <Jessica Pierce CNP - Last Filed: 06/24/21 18:16> Physical Exam Vital Signs: Vital Signs: Last Vital Signs Temp 98 F 06/24/21 13:13 Pulse 86 06/24/21 18:30 Resp 18 06/24/21 18:30 BP 91/44 L 06/24/21 18:30 Pulse Ox 100 06/24/21 18:30 BMI result Body Mass Index 27.7 Vital signs have been reviewed as normal and appeared to be correct. Blood pressure normal.? Heart rate normal.? Respiration rate normal. Temperature normal.? Oxygen saturation normal. <Jessica Pierce CNP - Last Filed: 06/24/21 18:16> Vital Signs: Last Vital Signs Temp 98 F 06/24/21 13:13 Pulse 86 06/24/21 18:30 Resp 18 06/24/21 18:30 BP 91/44 L 06/24/21 18:30 Pulse Ox 100 06/24/21 18:30 BMI result Body Mass Index 27.7 <Neftali Llanos MD - Last Filed: 06/24/21 19:21> Appearance: Alert.?Oriented to person, place and time. No acute distress.?Normal affect. Eyes: Pupils equal, round and reactive to light.? ENT: Pharynx normal.?? Neck: Normal inspection.? Neck supple.?? CVS: Heart sounds normal. Normal heart rate and rhythm.? Pulses normal.?? Respiratory: No respiratory distress.? Lung sounds clear to auscultation bilaterally?? Abdomen: Soft and non-tender. Skin: Skin warm and dry.? Normal skin color.? Normal skin turgor. Chronic decubitus wounds without surrounding erythema drainage or fluctuance..?? Extremities: Right upper extremity with PICC line in place no erythema, swelling, drainage around insertion site. No lower extremity edema.? No calf ttp? Neuro: Moves all extremities spontaneously. Sensation intact bilaterally. No focal neuro deficits. Ambulates with normal steady gait. <Jessica Pierce CNP - Last Filed: 06/24/21 18:16> Course Course Course Narrative: Patient is a 66-year-old male being evaluated for concerns of right upper extremity PICC line not functioning. He is well appearing, nontoxic, vitals are stable afebrile without tachycardia. Currently, his PICC line is intact is able to be flushed though there is some resistance and limited blood return. This morning he was due to receive vancomycin 1 g which is twice daily and this evening he is due to receive 2nd dose of vancomycin and ertapenem 1g daily. Since he missed his morning dose will administer a dose of vancomycin 1g through a new peripheral IV wall awaiting alteplase to be administered to PICC line. <Jessica Pierce CNP - Last Filed: 06/24/21 18:16> Reevaluation(s) Reevaluation #1: Nurses from IR at bedside and agree there is some resistance with flushing. Will administer alteplase per protocol. IR nurse advised that if unable to clear resistance with alteplase to have patient schedule an outpatient appointment with Radiology tomorrow to further troubleshoot his PICC line, and advised typically they would send patient home with a peripheral IV until resolved, and would arrange for VNA to remove peripheral catheter to be removed in 2 days. Given he missed his morning dose will administer a dose of vancomycin 1g through a new peripheral IV while awaiting alteplase to be administered to PICC line. <Jessica Pierce CNP - Last Filed: 06/24/21 18:16> Time: 16:29 <Jessica Pierce CNP - Last Filed: 06/24/21 18:16> Reevaluation #2: Patient signed out to Dr. Llanos pending affects of alteplase IV push into PICC line. Advised plan for discharge home with use of PICC line for continued antibiotics or discharge home with peripheral angio and follow-up outpatient tomorrow with Radiology for further evaluation of PICC line. <Jessica Pierce CNP - Last Filed: 06/24/21 18:16> Time: 18:00 <Jessica Pierce CNP - Last Filed: 06/24/21 18:16> Medical Decision Making [facility] Narrative Medical decision making narrative: PICC line was flushed by IR and is working now patient received IV vancomycin will discharge patient home <Neftali Llanos MD - Last Filed: 06/24/21 19:21> Discharge Plan Discharge Clinical Impression: Osteomyelitis, PIC line (peripherally inserted central catheter) flush <Jessica Pierce CNP - Last Filed: 06/24/21 18:16> Patient Disposition: Home, Self-Care <Jessica Pierce CNP - Last Filed: 06/24/21 18:16> Instructions: Osteomyelitis (ED), How to Care for Your PICC (Peripherally Inserted Central Catheter) (ED) <Jessica Pierce CNP - Last Filed: 06/24/21 18:16> Additional Instructions: Take medication as prescribed and follow with PCP <Jessica Pierce CNP - Last Filed: 06/24/21 18:16> Prescriptions: No Action aspirin 81 mg tablet,delayed release (DR/EC) 1 tab PO DAILY 0RF Hold Instructions: Resume on 03/16/21. start after repeat cbc as per pcp /GI. ferrous sulfate [Iron (ferrous sulfate)] 325 mg (65 mg iron) Tablet 325 mg PO BID Qty: 60 3RF Lantus Solostar U-100 Insulin 100 unit/mL (3 mL) insulin pen 20 unit subcut BEDTIME 0RF baclofen 20 mg tablet 2 tab PO TID 0RF Eliquis 5 mg tablet 1 tab PO BID 0RF Hold Instructions: Resume on 04/11/21. latanoprost 0.005 % drops 1 drp ophthalmic (eye) BEDTIME 0RF omeprazole 20 mg Capsule,Delayed Release(Dr/Ec) 20 mg PO BID@0630,1630 Qty: 30 0RF vancomycin 1,000 mg recon soln 1,000 mg IV Q12H 38 Days Qty: 1 0RF Rx Instructions: end jul 09 ertapenem 1 gram recon soln 1 g IV DAILY 42 Days Qty: 10 0RF Rx Instructions: end jul 09, 2021 lisinopril 5 mg tablet 5 mg PO DAILY 0RF gabapentin 800 mg tablet 800 mg PO BID 0RF metformin 1,000 mg tablet 1,000 mg PO BID 0RF <Jessica Pierce CNP - Last Filed: 06/24/21 18:16>
[2021-06-24] MEDS: Alteplase Cath Clear 2 MG VIAL INTRACATH (17:13)
[2021-06-24] MEDS: vancomycin HCL 1,000 MG in 0.9 % Sodium Chloride 250 ML 270 MG IV (17:40)
--- NOTE | 2021-06-24 18:15 | PC.NURSE ---
POST TPA FOR PICC LINE CLEARANCE CURRENTLY FLUSHING WELL WILL BLOOD RETURN, FINISH VANCO INFUSION AND DC HOME
[2021-06-24 18:30] VITALS: BP 91/44; PULSE 86; RESP 18; O2SAT 100
== END 2021-06-24 19:25 | disposition home or self-care (01) ==
PROVIDERS: Emergency Provider Emergency Medicine; PCP Internal Medicine
DX: T82.594A Other mechanical complication of infusion catheter, initial encounter (principal); Y82.9 Unspecified medical devices associated with adverse incidents; Y92.009 Unspecified place in unspecified non-institutional (private) residence as the place of occurrence of the external cause; M86.9 Osteomyelitis, unspecified; Z79.2 Long term (current) use of antibiotics; E11.9 Type 2 diabetes mellitus without complications; I10 Essential (primary) hypertension; G82.20 Paraplegia, unspecified; Z79.01 Long term (current) use of anticoagulants; Z79.4 Long term (current) use of insulin; Z79.82 Long term (current) use of aspirin
CPT/HCPCS: 96365; 99284; J2997; J3370

== ENCOUNTER 2021-06-26 | Outpatient (REF) | payer MEDICARE, MEDICAID, SELFPAY | END 2021-06-26 00:01 | disposition home or self-care (01) | LOC: HO.MDS | PROVIDERS: Visit Provider Internal Medicine | DX: D50.9 Iron deficiency anemia, unspecified (principal); I26.99 Other pulmonary embolism without acute cor pulmonale; M86.9 Osteomyelitis, unspecified; G82.20 Paraplegia, unspecified; Z53.09 Procedure and treatment not carried out because of other contraindication ==

== ENCOUNTER 2021-06-29 11:52 | Outpatient (REF) | payer MEDICARE, MEDICAID, SELFPAY ==
[2021-06-29 11:57] LABS: MANUAL DIFF FLAG NO
[2021-06-29 12:09] LABS: Basophils Absolute Auto 0.1 X10*3/uL (0.0-0.2); Basophils Percent Auto 1.4 % (0-2); Eosinophils Absolute Auto 0.4 X10*3/uL (0.0-0.4); Eosinophils Percent Auto 9.1 % (0-4); Hemoglobin 7.8 g/dl (14.0-18.0); Lymphocytes Absolute Auto 1.5 X10*3/uL (1.2-4.9); Lymphocytes Percent Auto 36.1 % (20-40); Mean Platelet Volume 9.8 fL (9.4-12.4); Monocytes Absolute Auto 0.4 X10*3/uL (0.1-1.2); Monocytes Percent Auto 9.6 % (2-11); Neutrophils Absolute Auto 1.8 x10*3/uL (2.0-8.3); Neutrophils Percent Auto 43.8 % (45-73); Platelet Count 250 X10*3/uL (160-400); Red Blood Count 3.25 X10*6/uL (4.60-5.80); Red Cell Distribution Width 20.1 % (11.0-16.0); White Blood Count 4.2 X10*3/uL (4.8-10.8)
[2021-06-29 12:41] LABS: Alanine Aminotransferase 16 U/L (0-40); Alkaline Phosphatase 86 U/L (39-117); Anion Gap 9 (12-20); Aspartate Amino Transferase 18 U/L (5-37); Bilirubin Total 0.2 mg/dL (0.0-1.0); Blood Urea Nitrogen 19 mg/dL (9-16); Calcium 8.8 mg/dL (8.4-10.2); Carbon Dioxide 29 mmol/L (22-29); Chloride 105 mmol/L (96-108); Estimated Glomerular Filt Rate > 60; Glucose Random 73 mg/dL (60-115); Potassium 4.6 mmol/L (3.3-5.1); Sodium 138 mmol/L (135-145); Total Protein 7.3 g/dL (6.5-8.0)
[2021-06-29 12:43] LABS: Vancomycin Trough 16.3 mcg/mL (10.0-20.0)
== END 2021-06-29 11:53 | disposition home or self-care (01) ==
LOC: HO.HVNA 11:52
PROVIDERS: PCP Internal Medicine; Visit Provider Internal Medicine
DX: M86.9 Osteomyelitis, unspecified (principal)
CPT/HCPCS: 36415; 80053; 80202; 85025

== ENCOUNTER 2021-07-03 09:49 | Outpatient (REF) | payer MEDICARE, MEDICAID, SELFPAY | END 2021-07-03 09:50 | disposition home or self-care (01) | LOC: HO.MDS 09:49 | PROVIDERS: Visit Provider Internal Medicine | DX: D50.9 Iron deficiency anemia, unspecified (principal); G82.20 Paraplegia, unspecified | CPT/HCPCS: 96365; 96366; J1200; J1750; Q0163 ==

== ENCOUNTER 2021-07-07 10:00 | Outpatient (REF) | payer MEDICARE, MEDICAID, SELFPAY ==
[2021-07-07 10:04] LABS: MANUAL DIFF FLAG NO
[2021-07-07 10:07] LABS: Basophils Absolute Auto 0.1 X10*3/uL (0.0-0.2); Basophils Percent Auto 1.4 % (0-2); Eosinophils Absolute Auto 0.3 X10*3/uL (0.0-0.4); Eosinophils Percent Auto 7.5 % (0-4); Hematocrit 27.2 % (42.0-52.0); Hemoglobin 8.1 g/dl (14.0-18.0); Imm Gran Abs Auto 0.02 X10*3/uL (0.00-0.03); Imm Gran Pct Auto 0.5 % (0.0-0.4); Lymphocytes Absolute Auto 1.3 X10*3/uL (1.2-4.9); Lymphocytes Percent Auto 32.4 % (20-40); Mean Corpuscular HGB Conc 29.8 g/dl (31.0-36.0); Mean Corpuscular Hemoglobin 24.1 pg (27.0-33.0); Mean Platelet Volume 10.1 fL (9.4-12.4); Monocytes Absolute Auto 0.4 X10*3/uL (0.1-1.2); Monocytes Percent Auto 9.2 % (2-11); Platelet Count 276 X10*3/uL (160-400); Red Blood Count 3.36 X10*6/uL (4.60-5.80); Red Cell Distribution Width 19.8 % (11.0-16.0); White Blood Count 4.1 X10*3/uL (4.8-10.8)
[2021-07-07 10:44] LABS: Alanine Aminotransferase 31 U/L (0-40); Alkaline Phosphatase 91 U/L (39-117); Anion Gap 14 (12-20); Aspartate Amino Transferase 31 U/L (5-37); Bilirubin Total 0.3 mg/dL (0.0-1.0); Blood Urea Nitrogen 16 mg/dL (9-16); Calcium 8.7 mg/dL (8.4-10.2); Carbon Dioxide 26 mmol/L (22-29); Chloride 104 mmol/L (96-108); Estimated Glomerular Filt Rate > 60; Glucose Random 204 mg/dL (60-115); Potassium 4.9 mmol/L (3.3-5.1); Sodium 139 mmol/L (135-145); Total Protein 7.2 g/dL (6.5-8.0)
[2021-07-07 10:46] LABS: Vancomycin Trough 16.1 mcg/mL (10.0-20.0)
== END 2021-07-07 10:01 | disposition home or self-care (01) ==
LOC: HO.LNP 10:00
PROVIDERS: Visit Provider Internal Medicine
DX: M86.9 Osteomyelitis, unspecified (principal); Z79.899 Other long term (current) drug therapy
CPT/HCPCS: 80053; 80202; 85025

== ENCOUNTER 2021-07-16 09:03 | Outpatient (REF) | payer MEDICARE, MEDICAID, SELFPAY ==
[2021-07-16 09:11] LABS: MANUAL DIFF FLAG NO
[2021-07-16 09:22] LABS: Basophils Absolute Auto 0.1 X10*3/uL (0.0-0.2); Basophils Percent Auto 1.3 % (0-2); Eosinophils Absolute Auto 0.2 X10*3/uL (0.0-0.4); Eosinophils Percent Auto 4.5 % (0-4); Hematocrit 29.5 % (42.0-52.0); Hemoglobin 8.8 g/dl (14.0-18.0); Imm Gran Abs Auto 0.01 X10*3/uL (0.00-0.03); Imm Gran Pct Auto 0.3 % (0.0-0.4); Lymphocytes Absolute Auto 1.3 X10*3/uL (1.2-4.9); Lymphocytes Percent Auto 33.2 % (20-40); Mean Corpuscular HGB Conc 29.8 g/dl (31.0-36.0); Mean Corpuscular Hemoglobin 24.4 pg (27.0-33.0); Mean Corpuscular Volume 81.9 fL (80.0-98.0); Mean Platelet Volume 10.3 fL (9.4-12.4); Monocytes Absolute Auto 0.3 X10*3/uL (0.1-1.2); Monocytes Percent Auto 7.6 % (2-11); Neutrophils Percent Auto 53.1 % (45-73); Platelet Count 262 X10*3/uL (160-400); Red Cell Distribution Width 20.6 % (11.0-16.0); White Blood Count 3.8 X10*3/uL (4.8-10.8)
[2021-07-16 10:25] LABS: Alanine Aminotransferase 39 U/L (0-40); Albumin Level 3.3 g/dL (3.5-5.0); Alkaline Phosphatase 96 U/L (39-117); Anion Gap 11 (12-20); Aspartate Amino Transferase 25 U/L (5-37); Bilirubin Total 0.4 mg/dL (0.0-1.0); Blood Urea Nitrogen 17 mg/dL (9-16); Calcium 8.9 mg/dL (8.4-10.2); Carbon Dioxide 30 mmol/L (22-29); Chloride 104 mmol/L (96-108); Estimated Glomerular Filt Rate > 60; Glucose Random 127 mg/dL (60-115); Potassium 4.7 mmol/L (3.3-5.1); Sodium 140 mmol/L (135-145); Total Protein 7.5 g/dL (6.5-8.0)
[2021-07-16 10:38] LABS: Vancomycin Trough 12.4 mcg/mL (10.0-20.0)
== END 2021-07-16 09:04 | disposition home or self-care (01) ==
LOC: HO.HVNA 09:03
PROVIDERS: Visit Provider Internal Medicine
DX: M86.18 Other acute osteomyelitis, other site (principal); Z79.899 Other long term (current) drug therapy
CPT/HCPCS: 36415; 80053; 80202; 85025

== ENCOUNTER → 2021-07-17 13:36 | Outpatient (BNVA) | payer MEDICARE, MEDICAID, SELFPAY | PROVIDERS: PCP Internal Medicine; Visit Provider Internal Medicine | DX: M86.9 Osteomyelitis, unspecified (principal); L89.90 Pressure ulcer of unspecified site, unspecified stage | CPT/HCPCS: 99212 ==

== ENCOUNTER 2021-07-21 13:23 | Outpatient (REF) | payer MEDICARE, MEDICAID, SELFPAY | END 2021-07-21 13:24 | disposition home or self-care (01) | LOC: HO.RADIR 13:23 | PROVIDERS: Visit Provider Internal Medicine | DX: Z13.89 Encounter for screening for other disorder (principal) ==

== ENCOUNTER 2021-08-26 12:02 | Outpatient (REF) | payer MEDICARE, MEDICAID, SELFPAY ==
[2021-08-26 13:17] LABS: Hematocrit 30.9 % (42.0-52.0); Hemoglobin 9.1 g/dl (14.0-18.0); Mean Corpuscular HGB Conc 29.4 g/dl (31.0-36.0); Mean Corpuscular Hemoglobin 24.5 pg (27.0-33.0); Mean Corpuscular Volume 83.1 fL (80.0-98.0); Mean Platelet Volume 10.6 fL (9.4-12.4); Platelet Count 230 X10*3/uL (160-400); Red Blood Count 3.72 X10*6/uL (4.60-5.80); Red Cell Distribution Width 17.5 % (11.0-16.0); White Blood Count 4.5 X10*3/uL (4.8-10.8)
[2021-08-26 14:00] LABS: Estimated Average Glucose 134 mg/dL; Hemoglobin A1c % 6.3 %
[2021-08-26 14:06] LABS: Albumin Level 3.4 g/dL (3.5-5.0); Iron 33 mcg/dL (45-160)
[2021-08-26 14:22] LABS: Percent Iron Saturation 17 % (15-50); Total Iron Binding Capacity 196 mcg/dL (228-428); Unsaturated Iron Binding 163 ug/dL
== END 2021-08-26 12:03 | disposition home or self-care (01) ==
LOC: HO.LAB 12:02
PROVIDERS: PCP Internal Medicine; Visit Provider Plastic Surgery
DX: L89.90 Pressure ulcer of unspecified site, unspecified stage (principal)
CPT/HCPCS: 36415; 82040; 83036; 83540; 85027

== ENCOUNTER → 2021-09-23 14:59 | Outpatient (RCR) | payer MEDICARE, MEDICAID, SELFPAY ==
[2020-04-22 12:03] LABS: MANUAL DIFF FLAG NO
[2020-04-22 12:09] LABS: Basophils Absolute Auto 0.1 X10*3/uL (0.0-0.2); Eosinophils Absolute Auto 0.2 X10*3/uL (0.0-0.4); Eosinophils Percent Auto 3.6 % (0-4); Hematocrit 39.3 % (42-52); Hemoglobin 12.3 g/dl (14.0-18.0); Imm Gran Abs Auto 0.01 X10*3/uL (0.00-0.03); Imm Gran Pct Auto 0.2 % (0.0-0.4); Lymphocytes Absolute Auto 1.2 X10*3/uL (1.2-4.9); Lymphocytes Percent Auto 21.9 % (20-40); Mean Corpuscular HGB Conc 31.3 g/dl (31.0-36.0); Mean Corpuscular Hemoglobin 27.5 pg (27.0-33.0); Mean Corpuscular Volume 87.7 fL (80-98); Mean Platelet Volume 10.1 fL (9.4-12.4); Monocytes Absolute Auto 0.3 X10*3/uL (0.1-1.2); Monocytes Percent Auto 6.3 % (2-11); Neutrophils Absolute Auto 3.5 X10*3/uL (2.0-8.3); Platelet Count 249 X10*3/uL (160-400); Red Blood Count 4.48 X10*6/uL (4.60-5.80); Red Cell Distribution Width 14.1 % (11.0-16.0); White Blood Count 5.2 X10*3/uL (4.8-10.8)
[2020-04-22 12:23] LABS: Estimated Average Glucose 171 mg/dL; Hemoglobin A1c % 7.6 %
[2020-04-22 12:35] LABS: Anion Gap 14 (12-20); Blood Urea Nitrogen 13 mg/dL (9-16); Calcium 9.4 mg/dL (8.4-10.2); Carbon Dioxide 29 mmol/L (22-29); Chloride 100 mmol/L (96-108); Estimated Glomerular Filt Rate > 60; Glucose Random 166 mg/dL (60-115); Potassium 4.5 mmol/l (3.3-5.1); Sodium 138 mmol/L (135-145)
[2020-04-22 12:49] LABS: Erythrocyte Sedimentation Rate 49 MM/HR (0-15)
[2021-01-21 11:51] LABS: MANUAL DIFF FLAG NO
[2021-01-21 11:54] LABS: Basophils Percent Auto 0.7 % (0-2); Eosinophils Absolute Auto 0.2 X10*3/uL (0.0-0.4); Eosinophils Percent Auto 3.3 % (0-4); Hemoglobin 9.6 g/dl (14.0-18.0); Imm Gran Abs Auto 0.01 X10*3/uL (0.00-0.03); Imm Gran Pct Auto 0.2 % (0.0-0.4); Lymphocytes Absolute Auto 1.5 X10*3/uL (1.2-4.9); Lymphocytes Percent Auto 33.6 % (20-40); Mean Corpuscular Hemoglobin 25.3 pg (27.0-33.0); Mean Corpuscular Volume 81.6 fL (80-98); Mean Platelet Volume 9.8 fL (9.4-12.4); Monocytes Absolute Auto 0.4 X10*3/uL (0.1-1.2); Monocytes Percent Auto 9.1 % (2-11); Neutrophils Absolute Auto 2.4 X10*3/uL (2.0-8.3); Neutrophils Percent Auto 53.1 % (45-73); Platelet Count 283 X10*3/uL (160-400); Red Cell Distribution Width 15.3 % (11.0-16.0); White Blood Count 4.5 X10*3/uL (4.8-10.8)
[2021-01-21 12:00] LABS: Estimated Average Glucose 137 mg/dL; Hemoglobin A1c % 6.4 %
[2021-01-21 12:15] LABS: Anion Gap 14 (12-20); Blood Urea Nitrogen 14 mg/dL (9-16); C Reactive Protein 4.24 mg/dL (< or = 0.50); Calcium 9.2 mg/dL (8.4-10.2); Carbon Dioxide 28 mmol/L (22-29); Chloride 103 mmol/L (96-108); Estimated Glomerular Filt Rate > 60; Glucose Random 178 mg/dL (60-115); Potassium 4.7 mmol/L (3.3-5.1); Sodium 140 mmol/L (135-145)
[2021-01-21 12:33] LABS: Erythrocyte Sedimentation Rate 95 MM/HR (0-15)
[2021-06-26 14:14] LABS: MANUAL DIFF FLAG NO
[2021-06-26 14:39] LABS: Basophils Percent Auto 0.8 % (0-2); Eosinophils Absolute Auto 0.4 X10*3/uL (0.0-0.4); Hematocrit 26.6 % (42.0-52.0); Hemoglobin 7.7 g/dl (14.0-18.0); Imm Gran Abs Auto 0.02 X10*3/uL (0.00-0.03); Imm Gran Pct Auto 0.4 % (0.0-0.4); Lymphocytes Absolute Auto 1.4 X10*3/uL (1.2-4.9); Lymphocytes Percent Auto 29.4 % (20-40); Mean Corpuscular HGB Conc 28.9 g/dl (31.0-36.0); Mean Corpuscular Hemoglobin 23.3 pg (27.0-33.0); Mean Corpuscular Volume 80.6 fL (80.0-98.0); Mean Platelet Volume 10.1 fL (9.4-12.4); Monocytes Absolute Auto 0.4 X10*3/uL (0.1-1.2); Monocytes Percent Auto 7.4 % (2-11); Neutrophils Absolute Auto 2.6 x10*3/uL (2.0-8.3); Platelet Count 264 X10*3/uL (160-400); Red Cell Distribution Width 20.4 % (11.0-16.0); White Blood Count 4.7 X10*3/uL (4.8-10.8)
[2021-06-26 14:49] LABS: Estimated Average Glucose 126 mg/dL
[2021-06-26 15:18] LABS: Anion Gap 10 (12-20); Blood Urea Nitrogen 20 mg/dL (9-16); C Reactive Protein 4.24 mg/dL (< or = 0.50); Calcium 8.9 mg/dL (8.4-10.2); Carbon Dioxide 27 mmol/L (22-29); Chloride 106 mmol/L (96-108); Estimated Glomerular Filt Rate > 60; Glucose Fasting 179 mg/dL (60-99); Potassium 4.7 mmol/L (3.3-5.1); Sodium 138 mmol/L (135-145)
[2021-06-26 15:19] LABS: Erythrocyte Sedimentation Rate 102 MM/HR (0-15)
--- NOTE | ~2021-09-23 | XR_ITS ---
EXAMINATION: XR PELVIS CLINICAL INFORMATION: Nonhealing wound COMPARISON: Lumbar spine x-ray November 2020 TECHNIQUE: AP view of the pelvis. FINDINGS: Bone alignment is normal. There is question of an old or healing fracture of the left lesser trochanter. No acute fracture is seen. There is arthritis at both hip joints with joint space narrowing and osteophyte formation. There is proliferative bone reaction along the left inferior pubic ramus. There is arthritis and proliferative bone reaction at L5-S1. There is a radiopaque density that projects over the left femoral head. This has dense center and is more lucent in the periphery. Together this measures 4 mm in diameter. XR/XR pelvis 1-2V IMPRESSION: Question old or healing fracture of the left lesser trochanter. Arthritis at the hip joints. 4 mm radiopaque density projecting over the left femoral head. Clinical correlation recommended.
--- NOTE | ~2021-09-23 | XR_ITS ---
EXAMINATION: XR FOOT, RIGHT CLINICAL INFORMATION: Right forefoot plantar wound assess for osteomyelitis. COMPARISON: MRI right foot 09/08/2020, radiographs right foot 04/27/2017. TECHNIQUE: Right foot is imaged in 3 views. FINDINGS: There is generalized osteopenia. 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 There is old posttraumatic deformity had fourth metatarsal. There is no visible acute or healing fracture or bony destructive process. No periostitis. No gas tracking in the soft tissues. No plain film findings to suggest osteomyelitis. There are posterior and plantar calcaneal spurs. No erosive arthropathy. XR/XR foot RT min 3V IMPRESSION: No focal bony destructive process or periostitis. No gas tracking in soft tissues.
--- NOTE | ~2021-09-23 | XR_ITS ---
EXAMINATION: XR CHEST CLINICAL INFORMATION: Preprocedure COMPARISON: None TECHNIQUE: 2 views of the chest were obtained. FINDINGS: Right upper extremity PICC terminates at the superior cavoatrial junction. Normal symmetric lung volumes. No parenchymal consolidation. No pleural effusion. No pneumothorax. Cardiomediastinal silhouette and pulmonary vascularity are within normal limits. Aorta is atherosclerotic. No acute osseous abnormalities. XR/XR chest 2V IMPRESSION: No acute findings. Right upper extremity PICC terminates at the superior cavoatrial junction.
== END | disposition home or self-care (01) ==
LOC: HO.WCC 02-14 10:00
PROVIDERS: PCP Internal Medicine; Referring Provider Physician Assistant; Visit Provider Surgery
DX: E11.622 Type 2 diabetes mellitus with other skin ulcer (principal); L89.324 Pressure ulcer of left buttock, stage 4; E11.69 Type 2 diabetes mellitus with other specified complication; M86.48 Chronic osteomyelitis with draining sinus, other site; G82.20 Paraplegia, unspecified; Z86.718 Personal history of other venous thrombosis and embolism; Z86.711 Personal history of pulmonary embolism
CPT/HCPCS: 11042; 11043; 11044; 11045; 11046; 15271; 15275; 20245; 36415; 71046; 72170; 73630; 80048; 83036; 84134; 85025; 85652; 86140; 87071; 87077; 87147; 87186; 87205; 88304; 88305; 88307; 88311; 97597; 97605; 99183; 99212; 99213; 99215; Q4186; Q4187; Q4196

== ENCOUNTER 2021-12-28 11:29 | Day surgery (SDC) | payer MEDICARE, MEDICAID, SELFPAY ==
[2021-12-21 19:58] VITALS: BMI 26.4
--- NOTE | 2021-12-25 09:12 | HO.ANESPROP2 ---
Documented by User: Celine Hyde NP 12/25/21 09:16 HPI - Anesthesia Eval Consult details Narrative: 66yo M for Upper Endoscopy s/p EGD 03/2021 with ZION Thurman for hx of PE PMFSH Active Problems Active Problems: All Active Problems (Updated 12/21/21 @ 19:57 by Veronica Martinez RN) Colon cancer screening (Acute) Positive colorectal cancer screening using Cologuard test (Acute) Paraplegia (Acute) Hypertension (Acute) Traumatic injury of back (Acute) NIDDY (non-insulin dependent diabetes mellitus in young) (Acute) Catheter-associated urinary tract infection (Acute) Decubital ulcer (Acute) Anemia (Chronic) Wound cellulitis (Acute) Osteomyelitis (Acute) Elevated sed rate (Acute) Diabetes (Acute) Osteomyelitis (Acute) Right foot infection (Acute Unknown) Osteomyelitis of left foot (Acute) Past Medical History Medical History Decubitus ulcer of right ischial tuberosity region Diabetes History of blood transfusion HTN (hypertension) Hx pulmonary embolism Iron deficiency anemia On anticoagulant therapy Osteomyelitis Osteomyelitis of left foot Paraplegia Right foot infection (Unknown) Family History Family History (Updated 12/18/21 @ 14:16 by KM Rey) Father Mother Brother No problems noted. Sister No problems noted. Sister No problems noted. Sister No problems noted. Son No problems noted. Son No problems noted. Son No problems noted. Son No problems noted. Daughter No problems noted. Daughter No problems noted. Family history of problems with anesthesia: No Surgical History Surgical History (Updated 12/28/21 @ 11:46 by Marika Herbert RN) History of spinal surgery Hx of colonoscopy Hx of endoscopy Hx of foot surgery Hx of skin graft Status post debridement History of Problems with Anesthesia: No Social History Social History (Updated 12/18/21 @ 14:17 by KM Rey) Household Members: Family Household Members Other:: roommate Housing: House Are you a primary critical care transport nurse to a significant other at home: No Do you presently have visiting nurse or other home services: Yes Alcohol intake: never Patient Tobacco Use Status: Never used Tobacco Second Hand Smoke Exposure: No Use of substances other than those prescribed or required for medical reasons: No Are you DNR?: No Advance Directives: Yes Advance Directives Information Provided: Yes Advance Directives on File: Yes Advance Directives Date on File: 03/10/21 Recently lost weight without trying: No Nutrition Risks: No Nutritional Risk service: No Current occupational status: disabled Meds Allergies Allergy/AdvReac Type Severity Reaction Status Date / Time levofloxacin [From LEVAQUIN] Allergy Intermediate HIVES, Verified 12/28/21 11:51 SKIN RASH seafood Allergy Intermediate Itching Verified 12/28/21 11:51 throat shellfish derived Allergy Intermediate itching Verified 12/28/21 11:51 throat Home Medications Medication Instructions Recorded Confirmed Last Taken Type gabapentin 800 mg tablet 800 mg PO BID 02/22/20 12/21/21 12/28/21 06:30 History lisinopril 5 mg tablet 5 mg PO DAILY 02/22/20 12/21/21 05/28/21 History metformin 1,000 mg tablet 1,000 mg PO BID 02/22/20 12/21/21 05/28/21 History aspirin 81 mg tablet,delayed 1 tab PO DAILY 09/04/20 12/21/21 12/25/21 History release apixaban 5 mg tablet (Eliquis) 1 tab PO BID 03/03/21 12/21/21 12/23/21 History baclofen 20 mg tablet 2 tab PO TID 03/03/21 12/21/21 12/28/21 06:30 History insulin glargine 100 unit/mL (3 20 unit subcut BEDTIME 03/03/21 12/21/21 05/27/21 History mL) subcutaneous pen (Lantus Solostar U-100 Insulin) latanoprost 0.005 % eye drops 1 drp ophthalmic (eye) BEDTIME 03/03/21 12/21/21 05/27/21 History ibuprofen 800 mg tablet 800 mg PO Q6H PRN Pain 07/08/21 12/21/21 Unknown History Exam Exam Date and Time: December 25, 202112 Height,Weight and Vital Signs: Height 6 ft 2 in Weight 93.44 kg Pertinent Lab Results Pertinent Lab Results: Laboratory Tests 12/18/21 12/18/21 14:42 14:42 WBC 5.4 Hgb 11.6 L D Hct 38.3 L D Plt Count 225 Sodium 138 Potassium 4.5 Chloride 101 Carbon Dioxide 30 H BUN 19 H Creatinine 0.65 Assessment and Plan Assessment Anesthesia Assessment: Chart Reviewed Final Anesthetic Review Family History of Problems with Anesthesia: No History of Problems with Anesthesia: No Documented by User: Hayley Torres MD 12/28/21 12:57 REPLACED BY [facility] Past Medical History Medical History Decubitus ulcer of right ischial tuberosity region Diabetes History of blood transfusion HTN (hypertension) Hx pulmonary embolism Iron deficiency anemia On anticoagulant therapy Osteomyelitis Osteomyelitis of left foot Paraplegia Right foot infection (Unknown) Family History Family History (Updated 12/18/21 @ 14:16 by KM Rey) Father Mother Brother No problems noted. Sister No problems noted. Sister No problems noted. Sister No problems noted. Son No problems noted. Son No problems noted. Son No problems noted. Son No problems noted. Daughter No problems noted. Daughter No problems noted. Surgical History Surgical History (Updated 12/28/21 @ 11:46 by Marika Herbert RN) History of spinal surgery Hx of colonoscopy Hx of endoscopy Hx of foot surgery Hx of skin graft Status post debridement Social History Social History (Updated 12/18/21 @ 14:17 by KM Rey) Household Members: Family Household Members Other:: roommate Housing: House Are you a primary critical care transport nurse to a significant other at home: No Do you presently have visiting nurse or other home services: Yes Alcohol intake: never Patient Tobacco Use Status: Never used Tobacco Second Hand Smoke Exposure: No Use of substances other than those prescribed or required for medical reasons: No Are you DNR?: No Advance Directives: Yes Advance Directives Information Provided: Yes Advance Directives on File: Yes Advance Directives Date on File: 03/10/21 Recently lost weight without trying: No Nutrition Risks: No Nutritional Risk service: No Current occupational status: disabled Meds Allergies Allergy/AdvReac Type Severity Reaction Status Date / Time levofloxacin [From LEVAQUIN] Allergy Intermediate HIVES, Verified 12/28/21 11:51 SKIN RASH seafood Allergy Intermediate Itching Verified 12/28/21 11:51 throat shellfish derived Allergy Intermediate itching Verified 12/28/21 11:51 throat Home Medications Medication Instructions Recorded Confirmed Last Taken Type gabapentin 800 mg tablet 800 mg PO BID 02/22/20 12/21/21 12/28/21 06:30 History lisinopril 5 mg tablet 5 mg PO DAILY 02/22/20 12/21/21 05/28/21 History metformin 1,000 mg tablet 1,000 mg PO BID 02/22/20 12/21/21 05/28/21 History aspirin 81 mg tablet,delayed 1 tab PO DAILY 09/04/20 12/21/21 12/25/21 History release apixaban 5 mg tablet (Eliquis) 1 tab PO BID 03/03/21 12/21/21 12/23/21 History baclofen 20 mg tablet 2 tab PO TID 03/03/21 12/21/21 12/28/21 06:30 History insulin glargine 100 unit/mL (3 20 unit subcut BEDTIME 03/03/21 12/21/21 05/27/21 History mL) subcutaneous pen (Lantus Solostar U-100 Insulin) latanoprost 0.005 % eye drops 1 drp ophthalmic (eye) BEDTIME 03/03/21 12/21/21 05/27/21 History ibuprofen 800 mg tablet 800 mg PO Q6H PRN Pain 07/08/21 12/21/21 Unknown History Exam Airway Mallampati Class: II TM Dist: >3cm Neck ROM: Full Denture: Upper and Lower Heart: rrr Lungs: cta Assessment and Plan Assessment Anesthesia Assessment: Anesthesia Plan Discussed and Chart Reviewed Final Anesthetic Review NPO: Yes ASA Class: III Final Preanesthetic Review: No Changes in Pt Med Stat, Meds/Allgs Chart Reviewed and Consent Obtained/Reviewed Patient Risk: Intermediate Procedure Risk: Intermediate Anesthetic Plan Anesthetic Plan: MAC: Disposition: Standard PACU
[2021-12-28 11:53] LABS: Glucose, Whole Blood 93 mg/dL (60-115)
[2021-12-28 11:57] VITALS: BP 116/65; PULSE 72; RESP 18; TEMP 36.5; O2SAT 97
[2021-12-28] MEDS: Lactated Ringers 1,000 ML 100 ML IVCONT (12:14)
--- NOTE | 2021-12-28 13:17 | P.HPSUR_ITS ---
Pre-Procedural Eval Section A Date of Service: 12/28/21 The patient is an INPATIENT: No The History & Physical has been completed within 30 days and I have reviewed it.: No Section B Chief Complaint: anemia Details of Present Illness: FU of Diego's Relevant Family History (Specify if Yes): No Relevant Social History: None Present Medications: see Short Stay Collaborative assessment Medical History: Significant History (Decubitus ulcer of right ischial tuberosity region Diabetes HTN (hypertension) Hx pulmonary embolism Osteomy elitis Osteomyelitis of left foot Paraplegia Right foot infection (Unknown)) History of Previous Operations: Relevant previous surgery/procedure and date(s) (History of spinal surgery Hx of colonoscopy Hx of foot surgery) Allergies: Allergies Allergy/AdvReac Type Severity Reaction Status Date / Time levofloxacin [From LEVAQUIN] Allergy Intermediate HIVES, Verified 12/28/21 11:51 SKIN RASH seafood Allergy Intermediate Itching Verified 12/28/21 11:51 throat shellfish derived Allergy Intermediate itching Verified 12/28/21 11:51 throat Review of Systems Sugical H&P ROS: Negative: Constitution, Cardiovascular, Respiratory and Gastr ointestinal Exam Surgical H&P Exam: Normal: Heart, Normal: Lungs, Normal: Extremities and Normal: Abdomen Plan Diagnosis/Plan: Unchanged I have reviewed the history and physical and performed a pertinent physical examination on my patient. No changes have occurred unless specified.
--- NOTE | 2021-12-28 13:48 | P.BOP_ITS ---
Brief Operative Note Date of Service: 12/28/21 Pre-op diagnosis: GERD - rule out Diego's Post-op diagnosis: same Procedure: FLEXIBLE TRANSORAL UPPER GASTROINTESTINAL ENDOSCOPY WITH BIOPSIES Consent: Indications for the procedure and potential complications of bleeding, perforation, reaction to medications and missed diagnosis were discussed with the patient and informed consent was obtained. Instrument: Olympus GIF H 190 mid size upper endoscope Monitoring: Vital signs and clinical assessment, continuous EKG monitoring, Pulse oximetry, Carbon Dioxide monitoring and blood pressure monitoring were done throughout the procedure. Procedure: The patient was placed in the left lateral decubitis position and pre-procedure medications were administered and a bite block was placed. The endoscope was inserted into the mouth and advanced under direct vision to the third part of duodenum. A careful inspection was made as the upper endoscope was withdrawn including a retroflexed examination of the proximal stomach; Findings and interventions are described below. Findings: Larynx: Normal Esophagus: GE junction at 42 cms. Two 1-2 cms tongues of suspected Diego's from 40 to 42 cms - biopsied Wats-3D brushings x 1 were taken and sent for processing. ? No discrete mass high definition white light or NBI. No esophagitis. Stomach: Mild gastric erythema. Biopsies obtained during last EGD were negative for H pylori. Grade 2 flap valve on retroflexed examination of the cardia. Duodenum: Normal bulb and descending duodenum Intervention: Biopsies as noted above Impression and Post Procedure Diagnosis: Endoscopy Findings: ESOPHAGUS: GE junction at 42 cms. Two 1-2 cms tongues of suspected Diego's from 40 to 42 cms - biopsied Wats-3D brushings x 1 were taken and sent for processing. ? No discrete mass high definition white light or NBI. Plan: Await pathology results Patient to schedule an appt in the GI Clinic with Dena Reis NP. Above findings were reviewed with the patient and GERD handouts was given in the discharge area Surgeon: Silverio Swift MD Anesthesia: MAC (Dr Iqbal) Was an Log Operations Coordinator used for this Procedure?: No Log Operations Coordinator: Samanta Orourke Estimated blood loss (mL): 0 Pathology: other ( A. G-E junction, R/O Diego's esophagus) Condition: stable Disposition: PACU
[2021-12-28 13:49] VITALS: BP 108/65; PULSE 63; RESP 16; TEMP 36.1; O2SAT 98
--- NOTE | 2021-12-28 13:51 | W.PM.OPN ---
Operative Note Operative Note Date of Service: 12/28/21 Narrative: Pre-op diagnosis: GERD - rule out Diego's Post-op diagnosis:?same Procedure: FLEXIBLE TRANSORAL UPPER GASTROINTESTINAL ENDOSCOPY WITH BIOPSIES Consent:?Indications for the procedure and potential complications of bleeding, perforation, reaction to medications and missed diagnosis were discussed with the patient and informed consent was obtained. Instrument:?Olympus GIF H 190 mid size upper endoscope Monitoring: Vital signs and clinical assessment, continuous EKG monitoring, Pulse oximetry, Carbon Dioxide monitoring and blood pressure monitoring were done throughout the procedure. Procedure:?The patient was placed in the left lateral decubitis position and pre-procedure medications were administered and a bite block was placed. The endoscope was inserted into the mouth and advanced under direct vision to the third part of duodenum. A careful inspection was made as the upper endoscope was withdrawn including a retroflexed examination of the proximal stomach; Findings and interventions are described below. Findings: Larynx:? Normal Esophagus: GE junction at 42 cms. Two 1-2 cms tongues of suspected Diego's from 40 to 42 cms - biopsied Wats-3D brushings x 1 were taken and sent for processing. ? No discrete mass high definition white light or NBI. No esophagitis. Stomach: Mild gastric erythema. Biopsies obtained during last EGD were negative for H pylori.? Grade 2 flap valve on retroflexed examination of the cardia. Duodenum: Normal bulb and descending duodenum Intervention: Biopsies as noted above Impression and Post Procedure Diagnosis: Endoscopy Findings: ESOPHAGUS: GE junction at 42 cms. Two 1-2 cms tongues of suspected Diego's from 40 to 42 cms - biopsied Wats-3D brushings x 1 were taken and sent for processing. ? No discrete mass high definition white light or NBI. Plan: Await pathology results Patient to schedule an appt in the GI Clinic with? Dena Reis NP. Above findings were reviewed with the patient and GERD handouts was given in the discharge area Surgeon: Silverio Swift MD Anesthesia:?MAC (Dr Iqbal) Was an Investment Strategist used for this Procedure?:?No Investment Strategist:?Samanta Orourke Estimated blood loss (mL):?0 Pathology:?other ( A. G-E junction, R/O Diego's esophagus) Condition:?stable Disposition:?PACU
[2021-12-28 14:04] VITALS: BP 123/71; PULSE 60; RESP 16; O2SAT 99
[2021-12-28 14:19] VITALS: BP 128/77; PULSE 66; RESP 18; TEMP 36.1; O2SAT 100
== END 2021-12-28 14:48 | disposition home or self-care (01) ==
PROVIDERS: PCP Internal Medicine; Visit Provider Internal Medicine Gastroenterology
PROC: 0DJ08ZZ Inspection of Upper Intestinal Tract, Via Natural or Artificial Opening Endoscopic (ICD-10-PCS; CPT 43235; principal; 2021-12-28 13:30)
DX: D64.9 Anemia, unspecified (principal); K21.9 Gastro-esophageal reflux disease without esophagitis; I10 Essential (primary) hypertension; E11.69 Type 2 diabetes mellitus with other specified complication; M86.9 Osteomyelitis, unspecified; L89.319 Pressure ulcer of right buttock, unspecified stage; G82.20 Paraplegia, unspecified; Z86.711 Personal history of pulmonary embolism; Z79.01 Long term (current) use of anticoagulants; Z79.4 Long term (current) use of insulin; Z79.899 Other long term (current) drug therapy; Z88.1 Allergy status to other antibiotic agents; Z98.890 Other specified postprocedural states
CPT/HCPCS: 43239; 82947; 88305

== ENCOUNTER → 2022-01-14 10:06 | Outpatient (BNVA) | payer MEDICARE, MEDICAID, SELFPAY | PROVIDERS: PCP Internal Medicine; Visit Provider Nurse Practitioner | DX: D64.9 Anemia, unspecified (principal); Z98.890 Other specified postprocedural states | CPT/HCPCS: 99212 ==

== ENCOUNTER 2022-02-01 09:21 | Day surgery (SDC) | payer MEDICARE, MEDICAID, SELFPAY ==
[2022-01-26 16:18] VITALS: BMI 26.4
--- NOTE | 2022-01-28 13:51 | MHC.SHP ---
Pre-Procedural Eval Section A Date of Service: 01/28/22 The patient is an INPATIENT: No Changes since office visit: No Cold of Flu in the past 2 weeks, No New Medical Problems, No Changes in Medication and No Patient answered all questions The History & Physical has been completed within 30 days and I have reviewed it.: Yes Section B Chief Complaint: Age-related nuclear cataract, left eye Allergies: Allergies Allergy/AdvReac Type Severity Reaction Status Date / Time levofloxacin [From LEVAQUIN] Allergy Intermediate HIVES, Verified 01/26/22 16:16 SKIN RASH seafood Allergy Intermediate Itching Verified 01/26/22 16:16 throat shellfish derived Allergy Intermediate itching Verified 01/26/22 16:16 throat Plan Diagnosis/Plan: Unchanged I have reviewed the history and physical and performed a pertinent physical examination on my patient. No changes have occurred unless specified.
--- NOTE | 2022-01-29 10:08 | P.CONAN_ITS ---
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) Catheter-associated urinary tract infection (Acute) Decubital ulcer (Acute) Anemia (Chronic) Wound cellulitis (Acute) Osteomyelitis (Acute) Elevated sed rate (Acute) GERD (gastroesophageal reflux disease) (Acute) Diabetes (Acute) Osteomyelitis (Acute) Right foot infection (Acute Unknown) Osteomyelitis of left foot (Acute) Past Medical History Medical History Decubitus ulcer of right ischial tuberosity region Diabetes History of blood transfusion HTN (hypertension) Hx pulmonary embolism Iron deficiency anemia On anticoagulant therapy Osteomyelitis Osteomyelitis of left foot Paraplegia Right foot infection (Unknown) Family History Family History Father Mother Brother No problems noted. Sister No problems noted. Sister No problems noted. Sister No problems noted. Son No problems noted. Son No problems noted. Son No problems noted. Son No problems noted. Daughter No problems noted. Daughter No problems noted. Family history of problems with anesthesia: No Surgical History Surgical History History of spinal surgery Hx of colonoscopy Hx of endoscopy Hx of foot surgery Hx of skin graft Status post debridement History of Problems with Anesthesia: No Social History Social History Household Members: Family Household Members Other:: roommate Housing: House Are you a primary home child care provider to a significant other at home: No Do you presently have visiting nurse or other home services: Yes Alcohol intake: never Patient Tobacco Use Status: Never used Tobacco Second Hand Smoke Exposure: No Have you been hit, kicked, punched, or otherwise hurt by someone within the past year? If so, by whom?: No Are you DNR?: No Advance Directives: Yes Advance Directives Information Provided: No Advance Directives on File: Yes Advance Directives Date on File: 03/10/21 Recently lost weight without trying: No Eating poorly because of decreased appetite: No Nutrition Risks: No Nutritional Risk service: No Current occupational status: disabled Meds Allergies Allergy/AdvReac Type Severity Reaction Status Date / Time levofloxacin [From LEVAQUIN] Allergy Intermediate HIVES, Verified 01/26/22 16:16 SKIN RASH seafood Allergy Intermediate Itching Verified 01/26/22 16:16 throat shellfish derived Allergy Intermediate itching Verified 01/26/22 16:16 throat Home Medications Medication Instructions Recorded Confirmed Last Taken Type gabapentin 800 mg tablet 800 mg PO BID 02/22/20 01/26/22 12/28/21 06:30 History lisinopril 5 mg tablet 5 mg PO DAILY 02/22/20 01/26/22 05/28/21 History metformin 1,000 mg tablet 1,000 mg PO BID 02/22/20 01/26/22 05/28/21 History aspirin 81 mg tablet,delayed 1 tab PO DAILY 09/04/20 01/26/22 12/25/21 History release apixaban 5 mg tablet (Eliquis) 1 tab PO BID 03/03/21 01/26/22 12/23/21 History baclofen 20 mg tablet 2 tab PO TID 03/03/21 01/26/22 12/28/21 06:30 History insulin glargine 100 unit/mL (3 20 unit subcut BEDTIME 03/03/21 01/26/22 05/27/21 History mL) subcutaneous pen (Lantus Solostar U-100 Insulin) latanoprost 0.005 % eye drops 1 drp ophthalmic (eye) BEDTIME 03/03/21 01/26/22 05/27/21 History ibuprofen 800 mg tablet 800 mg PO Q6H PRN Pain 07/08/21 01/26/22 Unknown History acetaminophen 500 mg tablet 500 mg PO Q8H PRN Pain 01/14/22 01/26/22 Unknown History blood sugar diagnostic (Andressa #10 ea 01/14/22 01/26/22 Unknown History Lite Strips) diclofenac sodium 1 % topical gel 2 g topical BID 01/14/22 01/26/22 Unknown History lancets 33 gauge (TRUEplus Lancets) #100 ea 01/14/22 01/26/22 Unknown History pen needle, diabetic 31 gauge x #50 ea 01/14/22 01/26/22 Unknown History 1/4 (UltiCare Pen Needle) ascorbic acid (vitamin C) 1,000 mg 3,000 mg PO DAILY 01/26/22 01/26/22 Unknown History tablet (Vitamin C) cholecalciferol (vitamin D3) 25 25 mcg PO DAILY 01/26/22 01/26/22 Unknown History mcg (1,000 unit) tablet (Vitamin D3) zinc gluconate 50 mg tablet 50 mg PO DAILY 01/26/22 01/26/22 Unknown History Exam Exam Date and Time: January 29, 2022 1008 Height,Weight and Vital Signs: Height 6 ft 2 in Weight 93.4 kg Pertinent Lab Results Pertinent Lab Results: Laboratory Tests 12/18/21 12/18/21 14:42 14:42 WBC 5.4 Hgb 11.6 L D Hct 38.3 L D Plt Count 225 Sodium 138 Potassium 4.5 Chloride 101 Carbon Dioxide 30 H BUN 19 H Creatinine 0.65 Assessment and Plan Assessment Anesthesia Assessment: Chart Reviewed Final Anesthetic Review Family History of Problems with Anesthesia: No History of Problems with Anesthesia: No Documented by User: Kobe Real MD 02/01/22 12:03 [facility] Past Medical History Medical History Decubitus ulcer of right ischial tuberosity region Diabetes History of blood transfusion HTN (hypertension) Hx pulmonary embolism Iron deficiency anemia On anticoagulant therapy Osteomyelitis Osteomyelitis of left foot Paraplegia Right foot infection (Unknown) Family History Family History Father Mother Brother No problems noted. Sister No problems noted. Sister No problems noted. Sister No problems noted. Son No problems noted. Son No problems noted. Son No problems noted. Son No problems noted. Daughter No problems noted. Daughter No problems noted. Surgical History Surgical History History of spinal surgery Hx of colonoscopy Hx of endoscopy Hx of foot surgery Hx of skin graft Status post debridement Social History Social History Household Members: Family Household Members Other:: roommate Housing: House Are you a primary home child care provider to a significant other at home: No Do you presently have visiting nurse or other home services: Yes Alcohol intake: never Patient Tobacco Use Status: Never used Tobacco Second Hand Smoke Exposure: No Have you been hit, kicked, punched, or otherwise hurt by someone within the past year? If so, by whom?: No Are you DNR?: No Advance Directives: Yes Advance Directives Information Provided: No Advance Directives on File: Yes Advance Directives Date on File: 03/10/21 Recently lost weight without trying: No Eating poorly because of decreased appetite: No Nutrition Risks: No Nutritional Risk service: No Current occupational status: disabled Meds Allergies Allergy/AdvReac Type Severity Reaction Status Date / Time levofloxacin [From LEVAQUIN] Allergy Intermediate HIVES, Verified 01/26/22 16:16 SKIN RASH seafood Allergy Intermediate Itching Verified 01/26/22 16:16 throat shellfish derived Allergy Intermediate itching Verified 01/26/22 16:16 throat Home Medications Medication Instructions Recorded Confirmed Last Taken Type gabapentin 800 mg tablet 800 mg PO BID 02/22/20 01/26/22 12/28/21 06:30 History lisinopril 5 mg tablet 5 mg PO DAILY 02/22/20 01/26/22 05/28/21 History metformin 1,000 mg tablet 1,000 mg PO BID 02/22/20 01/26/22 05/28/21 History aspirin 81 mg tablet,delayed 1 tab PO DAILY 09/04/20 01/26/22 12/25/21 History release apixaban 5 mg tablet (Eliquis) 1 tab PO BID 03/03/21 01/26/22 12/23/21 History baclofen 20 mg tablet 2 tab PO TID 03/03/21 01/26/22 12/28/21 06:30 History insulin glargine 100 unit/mL (3 20 unit subcut BEDTIME 03/03/21 01/26/22 05/27/21 History mL) subcutaneous pen (Lantus Solostar U-100 Insulin) latanoprost 0.005 % eye drops 1 drp ophthalmic (eye) BEDTIME 03/03/21 01/26/22 05/27/21 History ibuprofen 800 mg tablet 800 mg PO Q6H PRN Pain 07/08/21 01/26/22 Unknown History acetaminophen 500 mg tablet 500 mg PO Q8H PRN Pain 01/14/22 01/26/22 Unknown History blood sugar diagnostic (FreeStyle #10 ea 01/14/22 01/26/22 Unknown History Lite Strips) diclofenac sodium 1 % topical gel 2 g topical BID 01/14/22 01/26/22 Unknown History lancets 33 gauge (TRUEplus Lancets) #100 ea 01/14/22 01/26/22 Unknown History pen needle, diabetic 31 gauge x #50 ea 01/14/22 01/26/22 Unknown History 1/4 (UltiCare Pen Needle) ascorbic acid (vitamin C) 1,000 mg 3,000 mg PO DAILY 01/26/22 01/26/22 Unknown History tablet (Vitamin C) cholecalciferol (vitamin D3) 25 25 mcg PO DAILY 01/26/22 01/26/22 Unknown History mcg (1,000 unit) tablet (Vitamin D3) zinc gluconate 50 mg tablet 50 mg PO DAILY 01/26/22 01/26/22 Unknown History Exam Airway Mallampati Class: II TM Dist: >3cm Neck ROM: Full Denture: Upper and Lower Loose/Missing/Broken Teeth: Yes Heart: [id number] Lungs: cta b./l Assessment and Plan Assessment Anesthesia Assessment: Anesthesia Plan Discussed Final Anesthetic Review NPO: Yes ASA Class: III Final Preanesthetic Review: Meds/Allgs Chart Reviewed, Consent Obtained/Reviewed and Anes Risks/Benef Reviewed Patient Risk: Intermediate Procedure Risk: Low Assessment/Block/Sedation in SS: Assess/Block/Sedation-SS Anesthetic Plan Anesthetic Plan: MAC: and Agree w/ Assess. and Plan Disposition: Standard PACU
[2022-02-01 11:17] VITALS: BP 108/67; PULSE 87; RESP 17; TEMP 36.6; O2SAT 98
[2022-02-01 11:26] LABS: Glucose, Whole Blood 107 mg/dL (60-115)
[2022-02-01] MEDS: Tetracaine HCl/PF 0.5% Oph Sol 4 ML DROPS 1 DROP EYE-LEFT (11:34)
[2022-02-01] MEDS: Cyclopentolate 1 % Ophth Sol 2 ML DRPBTL 1 DROP EYE-LEFT ×3 (11:36→11:46)
[2022-02-01] MEDS: Tropicamide 1 % Ophth Sol 3 ML BTL 1 DROP EYE-LEFT ×3 (11:37→11:47)
[2022-02-01] MEDS: Lactated Ringers 500 ML 50 ML IV (11:37)
[2022-02-01] MEDS: Phenylephrine HCL 2.5% Oph SoL 2 ML BOTTLE 1 DROP EYE-LEFT ×3 (11:40→11:50)
--- NOTE | 2022-02-01 12:45 | HO.PNOPHT ---
Ophthalmology Procedure Procedure Date of Service: 02/01/22 Ophthalmology Viscoelastic: Healon Duet Dual Pack Pro Ophthalmology Lenses: TECQUIRINO [id number] (20) Procedure Notes: PREOPERATIVE DIAGNOSIS: Decreased visual acuity left eye secondary to cataract POSTOPERATIVE DIAGNOSIS: Same PROCEDURE: Left cataract extraction with intraocular lens insertion SURGEON: Joel Zamora M.D. ANESTHESIA: Topical/MAC ESTIMATED BLOOD LOSS: None COMPLICATIONS: None After obtaining informed consent, the patient was brought to the operation room suite and placed in the supine position. After adequate sedation per anesthesia, topical drops of Tetracaine were given to the left eye. The eye was then prepped and draped in the usual sterile fashion. The operating room microscope was then positioned over the operative eye and a lid speculum placed. A paracentesis was created. Viscoelastic was then instilled into the anterior chamber. A three plane incision was then created temporally, utilizing a 2.85 mm keratome. Capsulotomy forceps were then utilized to create a circular tear capsulotomy. Hydrodissection and hydrodelineation were carried out until adequate mobilization of the nucleus occurred. Phacoemulsification was then utilized to remove the dense central nucleus followed by removal of the cortical material utilizing the automated aspiration irrigation unit. Viscoat elastic was instilled into the posterior capsular bag followed by placement of a posterior chamber intraocular lens without difficulty. The residual Viscoat elastic was then removed utilizing the automated IA machine. The wound was check and found to be watertight. The patient tolerated the procedure well and the lid speculum was removed. Intracameral injection of Vigamox 0.1 mL followed by a subtenon injection of Kenalog-40 0.2 mL were administered. The patient will be seen in the a.m.
[2022-02-01 13:20] VITALS: BP 127/73; PULSE 84; RESP 16; TEMP 36.9; O2SAT 99
== END 2022-02-01 13:26 | disposition home or self-care (01) ==
PROVIDERS: PCP Internal Medicine; Visit Provider Ophthalmology
PROC: (CPT 66985; principal; 2022-02-01 12:30)
DX: H25.12 Age-related nuclear cataract, left eye (principal); H54.7 Unspecified visual loss; H40.1131 Primary open-angle glaucoma, bilateral, mild stage; G82.20 Paraplegia, unspecified; Z99.3 Dependence on wheelchair; I10 Essential (primary) hypertension; E11.9 Type 2 diabetes mellitus without complications; Z79.4 Long term (current) use of insulin; Z79.01 Long term (current) use of anticoagulants; Z79.899 Other long term (current) drug therapy; Z88.1 Allergy status to other antibiotic agents
CPT/HCPCS: 66984; 82947; J3010; J3300; V2632

== ENCOUNTER 2022-02-15 09:03 | Day surgery (SDC) | payer MEDICARE, MEDICAID, SELFPAY ==
[2022-01-26 16:28] VITALS: BMI 26.4
--- NOTE | 2022-02-12 09:02 | HO.ANESPROP2 ---
Documented by User: Celine Hyde NP 02/12/22 09:03 HPI - Anesthesia Eval Consult details Narrative: 67yo M for Right Cataract Extraction IOL Insertion PCP cleared Left eye 02/01/22 with MAC: Fent 50 Eliquis for hx PE Paraplegia PMFSH Active Problems Active Problems: All Active Problems (Updated 12/28/21 @ 13:46 by Silverio Swift MD) Colon cancer screening (Acute) Positive colorectal cancer screening using Cologuard test (Acute) Paraplegia (Acute) Hypertension (Acute) Traumatic injury of back (Acute) NIDDY (non-insulin dependent diabetes mellitus in young) (Acute) Catheter-associated urinary tract infection (Acute) Decubital ulcer (Acute) Anemia (Chronic) Wound cellulitis (Acute) Osteomyelitis (Acute) Elevated sed rate (Acute) GERD (gastroesophageal reflux disease) (Acute) Diabetes (Acute) Osteomyelitis (Acute) Right foot infection (Acute Unknown) Osteomyelitis of left foot (Acute) Past Medical History Medical History Decubitus ulcer of right ischial tuberosity region Diabetes History of blood transfusion HTN (hypertension) Hx pulmonary embolism Iron deficiency anemia On anticoagulant therapy Osteomyelitis Osteomyelitis of left foot Paraplegia Right foot infection (Unknown) Family History Family History Father Mother Brother No problems noted. Sister No problems noted. Sister No problems noted. Sister No problems noted. Son No problems noted. Son No problems noted. Son No problems noted. Son No problems noted. Daughter No problems noted. Daughter No problems noted. Family history of problems with anesthesia: No Surgical History Surgical History History of spinal surgery Hx of colonoscopy Hx of endoscopy Hx of foot surgery Hx of skin graft Status post debridement History of Problems with Anesthesia: No Social History Social History Household Members: Family Household Members Other:: roommate Housing: House Are you a primary care professionals to a significant other at home: No Do you presently have visiting nurse or other home services: Yes Alcohol intake: never Patient Tobacco Use Status: Never used Tobacco Second Hand Smoke Exposure: No Have you been hit, kicked, punched, or otherwise hurt by someone within the past year? If so, by whom?: No Are you DNR?: No Advance Directives: Yes Advance Directives on File: Yes Advance Directives Date on File: 03/10/21 Recently lost weight without trying: No Eating poorly because of decreased appetite: No Nutrition Risks: No Nutritional Risk service: No Current occupational status: disabled Meds Allergies Allergy/AdvReac Type Severity Reaction Status Date / Time levofloxacin [From LEVAQUIN] Allergy Intermediate HIVES, Verified 01/26/22 16:16 SKIN RASH seafood Allergy Intermediate Itching Verified 01/26/22 16:16 throat shellfish derived Allergy Intermediate itching Verified 01/26/22 16:16 throat Home Medications Medication Instructions Recorded Confirmed Last Taken Type gabapentin 800 mg tablet 800 mg PO BID 02/22/20 01/26/22 12/28/21 06:30 History lisinopril 5 mg tablet 5 mg PO DAILY 02/22/20 01/26/22 05/28/21 History metformin 1,000 mg tablet 1,000 mg PO BID 02/22/20 01/26/22 05/28/21 History aspirin 81 mg tablet,delayed 1 tab PO DAILY 09/04/20 01/26/22 12/25/21 History release apixaban 5 mg tablet (Eliquis) 1 tab PO BID 03/03/21 01/26/22 12/23/21 History baclofen 20 mg tablet 2 tab PO TID 03/03/21 01/26/22 12/28/21 06:30 History insulin glargine 100 unit/mL (3 20 unit subcut BEDTIME 03/03/21 01/26/22 05/27/21 History mL) subcutaneous pen (Lantus Solostar U-100 Insulin) latanoprost 0.005 % eye drops 1 drp ophthalmic (eye) BEDTIME 03/03/21 01/26/22 05/27/21 History ibuprofen 800 mg tablet 800 mg PO Q6H PRN Pain 07/08/21 01/26/22 Unknown History acetaminophen 500 mg tablet 500 mg PO Q8H PRN Pain 01/14/22 01/26/22 Unknown History blood sugar diagnostic (Maricelyle #10 ea 01/14/22 01/26/22 Unknown History Lite Strips) diclofenac sodium 1 % topical gel 2 g topical BID 01/14/22 01/26/22 Unknown History lancets 33 gauge (TRUEplus Lancets) #100 ea 01/14/22 01/26/22 Unknown History pen needle, diabetic 31 gauge x #50 ea 01/14/22 01/26/22 Unknown History 1/4 (UltiCare Pen Needle) ascorbic acid (vitamin C) 1,000 mg 3,000 mg PO DAILY 01/26/22 01/26/22 Unknown History tablet (Vitamin C) cholecalciferol (vitamin D3) 25 25 mcg PO DAILY 01/26/22 01/26/22 Unknown History mcg (1,000 unit) tablet (Vitamin D3) zinc gluconate 50 mg tablet 50 mg PO DAILY 01/26/22 01/26/22 Unknown History Exam Exam Date and Time: February 12, 2022901 Height,Weight and Vital Signs: Height 6 ft 2 in Weight 93.4 kg Assessment and Plan Assessment Anesthesia Assessment: Chart Reviewed Final Anesthetic Review Family History of Problems with Anesthesia: No History of Problems with Anesthesia: No Documented by User: Jessie Dangelo MD 02/15/22 11:23 [facility] Active Problems Active Problems: All Active Problems (Updated 12/28/21 @ 13:46 by Silevrio Swift MD) Colon cancer screening (Acute) Positive colorectal cancer screening using Cologuard test (Acute) Paraplegia (Acute) Hypertension (Acute)- denies h/o HTN. 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) (Acute) Catheter-associated urinary tract infection (Acute) Decubital ulcer (Acute) Anemia (Chronic) Wound cellulitis (Acute) Osteomyelitis (Acute) Elevated sed rate (Acute) GERD (gastroesophageal reflux disease) (Acute) Diabetes (Acute) Osteomyelitis (Acute) Right foot infection (Acute Unknown) Osteomyelitis of left foot (Acute) Past Medical History Medical History Decubitus ulcer of right ischial tuberosity region Diabetes History of blood transfusion HTN (hypertension) Hx pulmonary embolism Iron deficiency anemia On anticoagulant therapy Osteomyelitis Osteomyelitis of left foot Paraplegia Right foot infection (Unknown) Family History Family History Father Mother Brother No problems noted. Sister No problems noted. Sister No problems noted. Sister No problems noted. Son No problems noted. Son No problems noted. Son No problems noted. Son No problems noted. Daughter No problems noted. Daughter No problems noted. Surgical History Surgical History History of spinal surgery Hx of colonoscopy Hx of endoscopy Hx of foot surgery Hx of skin graft Status post debridement Social History Social History Household Members: Family Household Members Other:: roommate Housing: House Are you a primary care professionals to a significant other at home: No Do you presently have visiting nurse or other home services: Yes Alcohol intake: never Patient Tobacco Use Status: Never used Tobacco Second Hand Smoke Exposure: No Have you been hit, kicked, punched, or otherwise hurt by someone within the past year? If so, by whom?: No Are you DNR?: No Advance Directives: Yes Advance Directives on File: Yes Advance Directives Date on File: 03/10/21 Recently lost weight without trying: No Eating poorly because of decreased appetite: No Nutrition Risks: No Nutritional Risk service: No Current occupational status: disabled Meds Allergies Allergy/AdvReac Type Severity Reaction Status Date / Time levofloxacin [From LEVAQUIN] Allergy Intermediate HIVES, Verified 01/26/22 16:16 SKIN RASH seafood Allergy Intermediate Itching Verified 01/26/22 16:16 throat shellfish derived Allergy Intermediate itching Verified 01/26/22 16:16 throat Home Medications Medication Instructions Recorded Confirmed Last Taken Type gabapentin 800 mg tablet 800 mg PO BID 02/22/20 01/26/22 12/28/21 06:30 History lisinopril 5 mg tablet 5 mg PO DAILY 02/22/20 01/26/22 05/28/21 History metformin 1,000 mg tablet 1,000 mg PO BID 10/02/0201/26/22 05/28/21 History aspirin 81 mg tablet,delayed 1 tab PO DAILY 09/04/20 01/26/22 12/25/21 History release apixaban 5 mg tablet (Eliquis) 1 tab PO BID 03/03/21 01/26/22 12/23/21 History baclofen 20 mg tablet 2 tab PO TID 03/03/21 01/26/22 12/28/21 06:30 History insulin glargine 100 unit/mL (3 20 unit subcut BEDTIME 03/03/21 01/26/22 05/27/21 History mL) subcutaneous pen (Lantus Solostar U-100 Insulin) latanoprost 0.005 % eye drops 1 drp ophthalmic (eye) BEDTIME 03/03/21 01/26/22 05/27/21 History ibuprofen 800 mg tablet 800 mg PO Q6H PRN Pain 07/08/21 01/26/22 Unknown History acetaminophen 500 mg tablet 500 mg PO Q8H PRN Pain 01/14/22 01/26/22 Unknown History blood sugar diagnostic (FreeStyle #10 ea 01/14/22 01/26/22 Unknown History Lite Strips) diclofenac sodium 1 % topical gel 2 g topical BID 01/14/22 01/26/22 Unknown History lancets 33 gauge (TRUEplus Lancets) #100 ea 01/14/22 01/26/22 Unknown History pen needle, diabetic 31 gauge x #50 ea 01/14/22 01/26/22 Unknown History 1/4 (UltiCare Pen Needle) ascorbic acid (vitamin C) 1,000 mg 3,000 mg PO DAILY 01/26/22 01/26/22 Unknown History tablet (Vitamin C) cholecalciferol (vitamin D3) 25 25 mcg PO DAILY 01/26/22 01/26/22 Unknown History mcg (1,000 unit) tablet (Vitamin D3) zinc gluconate 50 mg tablet 50 mg PO DAILY 01/26/22 01/26/22 Unknown History Exam Height,Weight and Vital Signs: Height 6 ft 2 in Weight 93.4 kg Vital Signs Temp Pulse Resp BP Pulse Ox O2 Del Method 02/15/22 10:53 97.5 F 76 16 103/64 97 Room Air Pertinent Lab Results Pertinent Lab Results: Lab Results 02/15/22 Range/Units 11:14 POC Glucose 127 H (60-115) mg/dL Airway Mallampati Class: II TM Dist: >3cm Neck ROM: Full Denture: Upper and Lower Heart: RRR Lungs: CTAB Assessment and Plan Assessment Anesthesia Assessment: Anesthesia Plan Discussed Final Anesthetic Review NPO: Yes ASA Class: III Final Preanesthetic Review: No Changes in Pt Med Stat, Meds/Allgs Chart Reviewed, Consent Obtained/Reviewed and Anes Risks/Benef Reviewed Patient Risk: Intermediate Procedure Risk: Low Assessment/Block/Sedation in SS: Assess/Block/Sedation-SS Anesthetic Plan Anesthetic Plan: MAC: Disposition: Standard PACU
--- NOTE | 2022-02-12 09:20 | MHC.SHP ---
Pre-Procedural Eval Section A Date of Service: 02/12/22 The patient is an INPATIENT: No Changes since office visit: No Cold of Flu in the past 2 weeks, No New Medical Problems, No Changes in Medication and No Patient answered all questions The History & Physical has been completed within 30 days and I have reviewed it.: Yes Section B Chief Complaint: Age-related nuclear cataract, right eye Allergies: Allergies Allergy/AdvReac Type Severity Reaction Status Date / Time levofloxacin [From LEVAQUIN] Allergy Intermediate HIVES, Verified 01/26/22 16:16 SKIN RASH seafood Allergy Intermediate Itching Verified 01/26/22 16:16 throat shellfish derived Allergy Intermediate itching Verified 01/26/22 16:16 throat Plan Diagnosis/Plan: Unchanged I have reviewed the history and physical and performed a pertinent physical examination on my patient. No changes have occurred unless specified.
[2022-02-15 10:53] VITALS: BP 103/64; PULSE 76; RESP 16; TEMP 36.4; O2SAT 97
[2022-02-15 10:54] VITALS: BMI 26.9
[2022-02-15] MEDS: Phenylephrine HCL 2.5% Oph SoL 2 ML BOTTLE 1 DROP EYE-RIGHT ×3 (11:01→11:08)
[2022-02-15] MEDS: Cyclopentolate 1 % Ophth Sol 2 ML DRPBTL 1 DROP EYE-RIGHT ×3 (11:02→11:08)
[2022-02-15] MEDS: Lactated Ringers 500 ML 50 ML IV (11:03)
[2022-02-15] MEDS: Tetracaine HCl/PF 0.5% Oph Sol 4 ML DROPS 1 DROP EYE-RIGHT (11:03)
[2022-02-15] MEDS: Tropicamide 1 % Ophth Sol 3 ML BTL 1 DROP EYE-RIGHT ×3 (11:04→11:08)
[2022-02-15 11:19] LABS: Glucose, Whole Blood 127 mg/dL (60-115)
--- NOTE | 2022-02-15 12:12 | HO.PNOPHT ---
Ophthalmology Procedure Procedure Date of Service: 02/15/22 Ophthalmology Viscoelastic: Von Abreut Dual Pack Pro Ophthalmology Lenses: TECQUIRINO [id number] (21) Procedure Notes: PREOPERATIVE DIAGNOSIS: Decreased visual acuity right eye secondary to cataract POSTOPERATIVE DIAGNOSIS: Same PROCEDURE: Right cataract extraction with intraocular lens insertion SURGEON: Joel Zamora M.D. ANESTHESIA: Topical/MAC ESTIMATED BLOOD LOSS: None COMPLICATIONS: None After obtaining informed consent, the patient was brought to the operating room suite and placed in the supine position. After adequate sedation per anesthesia, topical drops of Tetracaine were given to the right eye. The eye was then prepped and draped in the usual sterile fashion. The operating room microscope was then positioned over the operative eye and a lid speculum placed. A paracentesis was created. Viscoelastic was then instilled into the anterior chamber. A three plane incision was then created temporally, utilizing a 2.85 mm keratome. Capsulotomy forceps were then utilized to create a circular tear capsulotomy. Hydrodissection and hydrodelineation were carried out until adequate mobilization of the nucleus occurred. Phacoemulsification was then utilized to remove the dense central nucleus followed by removal of the cortical material utilizing the automated aspiration irrigation unit. Viscoelastic was instilled into the posterior capsular bag followed by placement of a posterior chamber intraocular lens without difficulty. The residual Viscoelastic was then removed utilizing the automated IA machine. The wound was checked and found to be watertight. The patient tolerated the procedure well and the lid speculum was removed. Intracameral injection of Vigamox 0.1 mL followed by a subtenon injection of Kenalog-40 0.2 mL were administered. The patient will be seen in the a.m.
[2022-02-15 12:39] VITALS: BP 118/61; PULSE 81; RESP 17; TEMP 36.2; O2SAT 100
== END 2022-02-15 13:00 | disposition home or self-care (01) ==
PROVIDERS: PCP Internal Medicine; Visit Provider Ophthalmology
PROC: (CPT 66985; principal; 2022-02-15 12:10)
DX: H25.11 Age-related nuclear cataract, right eye (principal); H54.7 Unspecified visual loss; H40.1131 Primary open-angle glaucoma, bilateral, mild stage; E11.9 Type 2 diabetes mellitus without complications; G82.20 Paraplegia, unspecified; Z79.4 Long term (current) use of insulin; Z79.82 Long term (current) use of aspirin; Z79.1 Long term (current) use of non-steroidal anti-inflammatories (NSAID); Z79.899 Other long term (current) drug therapy; Z99.3 Dependence on wheelchair; Z88.1 Allergy status to other antibiotic agents
CPT/HCPCS: 66984; 82947; J2250; J3010; J3300; V2632

== ENCOUNTER 2022-06-09 14:05 | Outpatient (REF) | payer MEDICARE, MEDICAID, SELFPAY ==
--- NOTE | ~2022-06-09 | MR_ITS ---
EXAMINATION: MR HIP WITHOUT AND WITH CONTRAST, LEFT CLINICAL INFORMATION: Pain, history of ischium osteomyelitis. COMPARISON: Pelvic MRI dated 05/29/2021. TECHNIQUE: MRI of the left hip was performed before and after the intravenous administration of 9 mL Gadavist on a high-field scanner. FINDINGS: The ischial decubitus ulcer measures approximately 3 x 4 cm in area (AP by transverse) with extension of the wound to the depth of underlying bone (3 cm). Surrounding enhancement and edema signal are present at the margins of the defect. No fluid collections. There is edema signal within the left ischium extending cephalad from the ischial tuberosity. There is a corresponding region of low signal intensity on T1-weighted images, concerning for acute osteomyelitis. There is associated enhancement in this region on postcontrast images. The ischial tuberosity is more low in signal intensity on all sequences, potentially corresponding to a more chronic osteomyelitis. There is significant osseous remodeling in this region as well. Overall, the appearance is less pronounced as compared to the prior study from 05/29/2021. Additional edema signal within the inferior pubic ramus is more subtle and indeterminant with minimal enhancement on postcontrast images. No additional sites of osteomyelitis are identified. 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 Trace fluid in the joints without evidence of septic arthritis. No appreciable bursitis. SI joints are unremarkable. The left hamstring muscles appear displaced anteriorly, likely the result of the chronic deformity of the origin at the ischial tuberosity and a probable partial avulsion. Associated edema signal within the hamstring muscles and the adjacent hip adductors which is favored to be reactive in nature. No associated fluid collections are identified. There is moderate generalized atrophy of the pelvic musculature, more pronounced on the left than on the right. There are numerous prominent lymph nodes in the left inguinal and external iliac artery distribution which are similar to prior and favored to be reactive in nature. A Juraez catheter is present in the bladder. There is a fat-containing, direct right inguinal hernia. Imaged intrapelvic soft tissues are otherwise unremarkable. MR/MR hip LT wo/w con IMPRESSION: 1. Left ischial decubitus ulcer with underlying osteomyelitis in the ischium. Of note, the osteomyelitis at the ischial tuberosity appears more chronic with an adjacent, proximal ischial focus that appears more acute. No abscess. Overall, the marrow findings are less pronounced as compared to the prior MRI from 05/29/2021. 2. Prominent left inguinal and external iliac lymph nodes, likely reactive. 3. Fat-containing right inguinal hernia.
== END 2022-06-09 14:06 | disposition home or self-care (01) ==
LOC: HO.MRI 14:05
PROVIDERS: PCP Internal Medicine; Visit Provider Internal Medicine
DX: M25.552 Pain in left hip (principal)
CPT/HCPCS: 73723; A9585

== ENCOUNTER → 2022-06-14 13:18 | Outpatient (BNVA) | payer MEDICARE, MEDICAID, SELFPAY | PROVIDERS: PCP Internal Medicine; Visit Provider Physician Assistant | DX: M16.12 Unilateral primary osteoarthritis, left hip (principal) | CPT/HCPCS: 99202 ==

== ENCOUNTER 2022-07-19 14:22 | Outpatient (REF) | payer MEDICARE, MEDICAID, SELFPAY ==
[2022-07-19 15:11] LABS: MANUAL DIFF FLAG NO
[2022-07-19 15:45] LABS: Basophils Absolute Auto 0.1 X10*3/uL (0.0-0.2); Basophils Percent Auto 1.5 % (0-2); Eosinophils Absolute Auto 0.2 X10*3/uL (0.0-0.4); Eosinophils Percent Auto 4.3 % (0-4); Hematocrit 37.4 % (42.0-52.0); Hemoglobin 11.2 g/dl (14.0-18.0); Lymphocytes Absolute Auto 1.4 X10*3/uL (1.2-4.9); Lymphocytes Percent Auto 29.3 % (20-40); Mean Corpuscular HGB Conc 29.9 g/dl (31.0-36.0); Mean Corpuscular Volume 80.3 fL (80.0-98.0); Mean Platelet Volume 10.1 fL (9.4-12.4); Monocytes Absolute Auto 0.3 X10*3/uL (0.1-1.2); Monocytes Percent Auto 6.7 % (2-11); Neutrophils Absolute Auto 2.7 x10*3/uL (2.0-8.3); Neutrophils Percent Auto 58.2 % (45-73); Platelet Count 306 X10*3/uL (160-400); Red Blood Count 4.66 X10*6/uL (4.60-5.80); Red Cell Distribution Width 16.4 % (11.0-16.0); White Blood Count 4.6 X10*3/uL (4.8-10.8)
[2022-07-19 16:10] LABS: Alanine Aminotransferase 11 U/L (0-40); Albumin Level 3.9 g/dL (3.5-5.0); Alkaline Phosphatase 104 U/L (39-117); Anion Gap 14 (12-20); Aspartate Amino Transferase 17 U/L (5-37); Bilirubin Direct < 0.2 mg/dL (0.0-0.5); Bilirubin Total 0.3 mg/dL (0.0-1.0); Blood Urea Nitrogen 16 mg/dL (9-16); Calcium 9.2 mg/dL (8.4-10.2); Carbon Dioxide 28 mmol/L (22-29); Chloride 101 mmol/L (96-108); Estimated Glomerular Filt Rate > 60; Glucose Random 101 mg/dL (60-115); Potassium 4.6 mmol/L (3.3-5.1); Sodium 138 mmol/L (135-145); Total Protein 8.2 g/dL (6.5-8.0)
[2022-07-19 16:22] LABS: Erythrocyte Sedimentation Rate 82 MM/HR (0-15)
== END 2022-07-19 14:23 | disposition home or self-care (01) ==
LOC: HO.LAB 14:22
PROVIDERS: PCP Internal Medicine; Visit Provider Internal Medicine
DX: M16.12 Unilateral primary osteoarthritis, left hip (principal)
CPT/HCPCS: 36415; 80048; 80076; 85025; 85652; 87040

== ENCOUNTER → 2022-07-23 12:59 | Outpatient (BNVA) | payer MEDICARE, MEDICAID, SELFPAY | PROVIDERS: PCP Internal Medicine; Visit Provider Internal Medicine | DX: M86.9 Osteomyelitis, unspecified (principal) | CPT/HCPCS: 99212 ==

== ENCOUNTER → 2022-08-05 12:44 | Day surgery (SDC) | payer MEDICARE, MEDICAID, SELFPAY ==
--- NOTE | 2022-08-05 16:33 | P.PICC_ITS ---
PICC Line Insertion NPICC Diagnosis: Osteomyelitis Indication: fpc antibiotics needed Pertinent Labs: none Technique: Following informed consent including risks, benefits and alternatives and using sterile technique including cap and mask, sterile gown, glove and drape, the right arm was prepped and draped in the usual sterile fashion of full barrier technique with CHG. Following completion of [place] Protocol the skin and soft tissues were anesthetized with 1% Lidocaine plain. Using ultrasound guidance, right basilic vein access was obtained was obtained twice by Jim Trujillo RN, but unable to advance wire. Right basilic vein access was obtained by Cuco Marquez RN, but unable to advance guidewire. Right brachial vein access was then obtained by Cuco Marquez RN. Over an 0.018 wire through peel-away sheath, a 4FR single lumen PASV PICC line was positioned. Catheter length is 42 CM internal length, 0 CM external length, for a total trimmed length of 42 CM. The procedure was performed in S272. Tip verification was performed by Gisela Montiel with Sherlock 3CG. Tip located in SVC. Ultrasound was used to document vein patency and for needle entry. A formal ultrasound picture and cardiac rhythm strip was recorded. Vascular Strip Machine Operator has released the line for use and it is currently dressed with a StatLock, Tegaderm, and CHG disc. Verification has been performed for blood return and line patency. Arm Circumference: 33.5 CM Equipment: [employer] PowerPICC SOLO Catheter Type: 4FR single lumen PASV PICC Lot #: [id number]
== END ==
PROVIDERS: PCP Internal Medicine; Visit Provider Radiology Diagnostic Radiology
DX: L89.899 Pressure ulcer of other site, unspecified stage (principal); M86.9 Osteomyelitis, unspecified; E11.9 Type 2 diabetes mellitus without complications; G82.20 Paraplegia, unspecified; I10 Essential (primary) hypertension; D50.9 Iron deficiency anemia, unspecified; Z86.711 Personal history of pulmonary embolism; Z79.01 Long term (current) use of anticoagulants; Z79.4 Long term (current) use of insulin; Z79.899 Other long term (current) drug therapy; Z88.1 Allergy status to other antibiotic agents
CPT/HCPCS: 36573; C1751; J1335

== ENCOUNTER 2022-08-05 15:58 | Outpatient (REF) | payer MEDICARE, MEDICAID, SELFPAY | END 2022-08-05 15:59 | disposition home or self-care (01) | LOC: HO.MDS 15:58 | PROVIDERS: PCP Internal Medicine; Visit Provider Internal Medicine | DX: M86.9 Osteomyelitis, unspecified (principal) | CPT/HCPCS: 36573; 96365; C1751; J1335 ==

== ENCOUNTER 2022-08-10 15:26 | Outpatient (REF) | payer MEDICARE, MEDICAID, SELFPAY ==
[2022-08-10 15:31] LABS: MANUAL DIFF FLAG NO
[2022-08-10 15:38] LABS: Basophils Absolute Auto 0.1 X10*3/uL (0.0-0.2); Basophils Percent Auto 1.4 % (0-2); Eosinophils Absolute Auto 0.2 X10*3/uL (0.0-0.4); Eosinophils Percent Auto 4.9 % (0-4); Hematocrit 33.4 % (42.0-52.0); Hemoglobin 10.2 g/dl (14.0-18.0); Imm Gran Abs Auto 0.01 X10*3/uL (0.00-0.03); Imm Gran Pct Auto 0.2 % (0.0-0.4); Lymphocytes Absolute Auto 1.2 X10*3/uL (1.2-4.9); Lymphocytes Percent Auto 28.7 % (20-40); Mean Corpuscular HGB Conc 30.5 g/dl (31.0-36.0); Mean Corpuscular Hemoglobin 24.1 pg (27.0-33.0); Monocytes Absolute Auto 0.3 X10*3/uL (0.1-1.2); Monocytes Percent Auto 7.3 % (2-11); Neutrophils Absolute Auto 2.4 x10*3/uL (2.0-8.3); Neutrophils Percent Auto 57.5 % (45-73); Platelet Count 251 X10*3/uL (160-400); Red Blood Count 4.23 X10*6/uL (4.60-5.80); Red Cell Distribution Width 17.2 % (11.0-16.0); White Blood Count 4.3 X10*3/uL (4.8-10.8)
[2022-08-10 16:15] LABS: Erythrocyte Sedimentation Rate 70 MM/HR (0-15)
[2022-08-10 17:09] LABS: Estimated Glomerular Filt Rate > 60
== END 2022-08-10 15:27 | disposition home or self-care (01) ==
LOC: HO.HVNA 15:26
PROVIDERS: Visit Provider Internal Medicine
DX: L89.324 Pressure ulcer of left buttock, stage 4 (principal)
CPT/HCPCS: 36415; 82565; 85025; 85652

== ENCOUNTER → 2022-08-13 13:50 | Outpatient (BNVA) | payer MEDICARE, MEDICAID, SELFPAY | PROVIDERS: PCP Internal Medicine; Visit Provider Internal Medicine | DX: M86.9 Osteomyelitis, unspecified (principal) | CPT/HCPCS: 99212 ==

== ENCOUNTER 2022-08-18 15:47 | Outpatient (REF) | payer MEDICARE, MEDICAID, SELFPAY ==
[2022-08-18 15:54] LABS: MANUAL DIFF FLAG NO
[2022-08-18 16:05] LABS: Basophils Absolute Auto 0.1 X10*3/uL (0.0-0.2); Eosinophils Absolute Auto 0.3 X10*3/uL (0.0-0.4); Eosinophils Percent Auto 4.8 % (0-4); Hematocrit 32.9 % (42.0-52.0); Imm Gran Abs Auto 0.02 X10*3/uL (0.00-0.03); Imm Gran Pct Auto 0.4 % (0.0-0.4); Lymphocytes Percent Auto 19.7 % (20-40); Mean Corpuscular HGB Conc 30.4 g/dl (31.0-36.0); Mean Corpuscular Volume 79.1 fL (80.0-98.0); Mean Platelet Volume 10.2 fL (9.4-12.4); Monocytes Absolute Auto 0.4 X10*3/uL (0.1-1.2); Monocytes Percent Auto 6.7 % (2-11); Neutrophils Absolute Auto 3.5 x10*3/uL (2.0-8.3); Neutrophils Percent Auto 67.4 % (45-73); Platelet Count 253 X10*3/uL (160-400); Red Blood Count 4.16 X10*6/uL (4.60-5.80); Red Cell Distribution Width 17.3 % (11.0-16.0); White Blood Count 5.2 X10*3/uL (4.8-10.8)
[2022-08-18 16:36] LABS: Estimated Glomerular Filt Rate > 60
[2022-08-18 16:57] LABS: Erythrocyte Sedimentation Rate 66 MM/HR (0-15)
== END 2022-08-18 15:48 | disposition home or self-care (01) ==
LOC: HO.HVNA 15:47
PROVIDERS: Visit Provider Internal Medicine
DX: L89.90 Pressure ulcer of unspecified site, unspecified stage (principal)
CPT/HCPCS: 36415; 82565; 85025; 85652

== ENCOUNTER 2022-08-24 16:07 | Outpatient (REF) | payer MEDICARE, MEDICAID, SELFPAY ==
[2022-08-24 16:12] LABS: MANUAL DIFF FLAG NO
[2022-08-24 16:20] LABS: Eosinophils Absolute Auto 0.3 X10*3/uL (0.0-0.4); Hematocrit 32.3 % (42.0-52.0); Imm Gran Abs Auto 0.01 X10*3/uL (0.00-0.03); Imm Gran Pct Auto 0.3 % (0.0-0.4); Lymphocytes Absolute Auto 1.2 X10*3/uL (1.2-4.9); Mean Corpuscular Hemoglobin 24.3 pg (27.0-33.0); Mean Corpuscular Volume 78.4 fL (80.0-98.0); Monocytes Absolute Auto 0.3 X10*3/uL (0.1-1.2); Monocytes Percent Auto 8.5 % (2-11); Neutrophils Percent Auto 52.2 % (45-73); Platelet Count 248 X10*3/uL (160-400); Red Blood Count 4.12 X10*6/uL (4.60-5.80); Red Cell Distribution Width 17.2 % (11.0-16.0); White Blood Count 3.9 X10*3/uL (4.8-10.8)
[2022-08-24 17:37] LABS: Estimated Glomerular Filt Rate > 60
[2022-08-24 17:42] LABS: Erythrocyte Sedimentation Rate 70 MM/HR (0-15)
== END 2022-08-24 16:08 | disposition home or self-care (01) ==
LOC: HO.HVNA 16:07
PROVIDERS: Visit Provider Internal Medicine
DX: L89.222 Pressure ulcer of left hip, stage 2 (principal); L89.324 Pressure ulcer of left buttock, stage 4
CPT/HCPCS: 36415; 82565; 85025; 85652

== ENCOUNTER 2022-09-02 15:39 | Outpatient (REF) | payer MEDICARE, MEDICAID, SELFPAY ==
[2022-09-02 15:44] LABS: MANUAL DIFF FLAG NO
[2022-09-02 15:51] LABS: Basophils Absolute Auto 0.1 X10*3/uL (0.0-0.2); Eosinophils Absolute Auto 0.3 X10*3/uL (0.0-0.4); Eosinophils Percent Auto 6.5 % (0-4); Hematocrit 31.1 % (42.0-52.0); Hemoglobin 9.5 g/dl (14.0-18.0); Imm Gran Abs Auto 0.02 X10*3/uL (0.00-0.03); Imm Gran Pct Auto 0.4 % (0.0-0.4); Immature Retic Fraction 17.5 % (2.3-13.4); Lymphocytes Absolute Auto 1.3 X10*3/uL (1.2-4.9); Lymphocytes Percent Auto 26.2 % (20-40); Mean Corpuscular HGB Conc 30.5 g/dl (31.0-36.0); Mean Corpuscular Hemoglobin 24.3 pg (27.0-33.0); Mean Corpuscular Volume 79.5 fL (80.0-98.0); Mean Platelet Volume 10.3 fL (9.4-12.4); Monocytes Absolute Auto 0.4 X10*3/uL (0.1-1.2); Monocytes Percent Auto 8.1 % (2-11); Neutrophils Absolute Auto 2.9 x10*3/uL (2.0-8.3); Neutrophils Percent Auto 57.8 % (45-73); Platelet Count 236 X10*3/uL (160-400); Red Blood Count 3.91 X10*6/uL (4.60-5.80); Red Cell Distribution Width 17.6 % (11.0-16.0); Retic HGB Equivalent 26.9 pg (30.0-35.0); Reticulocyte Percent 1.2 % (0.5-1.8); Reticulocytes Absolute 0.046 X10*6/uL (0.026-0.095); White Blood Count 5.1 X10*3/uL (4.8-10.8)
[2022-09-02 16:22] LABS: Estimated Glomerular Filt Rate > 60; Iron 48 mcg/dL (45-160); Lactate Dehydrogenase 147 U/L (118-273); Percent Iron Saturation 25 % (15-50); Total Iron Binding Capacity 190 mcg/dL (228-428); Unsaturated Iron Binding 142 ug/dL
[2022-09-02 16:32] LABS: Erythrocyte Sedimentation Rate 64 MM/HR (0-15)
[2022-09-02 17:09] LABS: Ferritin 49 ng/mL (20-250); Folate 7.2 ng/mL (> or = 4.0); Vitamin B12 428 pg/mL (200-900)
== END 2022-09-02 15:40 | disposition home or self-care (01) ==
LOC: HO.HVNA 15:39
PROVIDERS: Visit Provider Internal Medicine
DX: L89.324 Pressure ulcer of left buttock, stage 4 (principal)
CPT/HCPCS: 36415; 82565; 82607; 82728; 82746; 83540; 83615; 85025; 85045; 85652

== ENCOUNTER 2022-09-08 15:40 | Outpatient (REF) | payer MEDICARE, MEDICAID, SELFPAY ==
[2022-09-08 15:44] LABS: MANUAL DIFF FLAG NO
[2022-09-08 15:52] LABS: Basophils Absolute Auto 0.1 X10*3/uL (0.0-0.2); Eosinophils Absolute Auto 0.4 X10*3/uL (0.0-0.4); Eosinophils Percent Auto 6.5 % (0-4); Hematocrit 32.1 % (42.0-52.0); Hemoglobin 9.9 g/dl (14.0-18.0); Imm Gran Abs Auto 0.02 X10*3/uL (0.00-0.03); Imm Gran Pct Auto 0.3 % (0.0-0.4); Lymphocytes Absolute Auto 1.6 X10*3/uL (1.2-4.9); Lymphocytes Percent Auto 26.7 % (20-40); Mean Corpuscular HGB Conc 30.8 g/dl (31.0-36.0); Mean Corpuscular Hemoglobin 24.4 pg (27.0-33.0); Mean Corpuscular Volume 79.3 fL (80.0-98.0); Mean Platelet Volume 10.5 fL (9.4-12.4); Monocytes Absolute Auto 0.4 X10*3/uL (0.1-1.2); Neutrophils Absolute Auto 3.5 x10*3/uL (2.0-8.3); Neutrophils Percent Auto 58.5 % (45-73); Platelet Count 264 X10*3/uL (160-400); Red Blood Count 4.05 X10*6/uL (4.60-5.80); Red Cell Distribution Width 17.8 % (11.0-16.0)
[2022-09-08 16:42] LABS: Erythrocyte Sedimentation Rate 81 MM/HR (0-15)
[2022-09-08 17:11] LABS: Estimated Glomerular Filt Rate > 60
== END 2022-09-08 15:41 | disposition home or self-care (01) ==
LOC: HO.HVNA 15:40
PROVIDERS: Visit Provider Internal Medicine
DX: L89.324 Pressure ulcer of left buttock, stage 4 (principal); L89.222 Pressure ulcer of left hip, stage 2; G82.20 Paraplegia, unspecified; S24.103S Unspecified injury at T7-T10 level of thoracic spinal cord, sequela
CPT/HCPCS: 36415; 82565; 85025; 85652

== ENCOUNTER → 2022-09-10 13:13 | Outpatient (BNVA) | payer MEDICARE, MEDICAID, SELFPAY | PROVIDERS: PCP Internal Medicine; Visit Provider Internal Medicine | DX: M86.9 Osteomyelitis, unspecified (principal) | CPT/HCPCS: 99212 ==

== ENCOUNTER 2023-04-11 12:18 | Outpatient (REF) | payer MEDICARE, MEDICAID, SELFPAY | END 2023-04-11 12:19 | disposition home or self-care (01) | LOC: HO.MDS 12:18 | PROVIDERS: Visit Provider Internal Medicine | DX: D50.8 Other iron deficiency anemias (principal) | CPT/HCPCS: 96365; J1756 ==

== ENCOUNTER 2023-04-29 11:36 | Outpatient (REF) | payer MEDICARE, MEDICAID, SELFPAY | END 2023-04-29 11:37 | disposition home or self-care (01) | LOC: HO.MDS 11:36 | PROVIDERS: PCP Internal Medicine; Visit Provider Internal Medicine | DX: D50.8 Other iron deficiency anemias (principal) | CPT/HCPCS: 96365; J1756 ==

== ENCOUNTER 2023-05-06 12:44 | Outpatient (REF) | payer MEDICARE, MEDICAID, SELFPAY | END 2023-05-06 12:45 | disposition home or self-care (01) | LOC: HO.MDS 12:44 | PROVIDERS: Visit Provider Internal Medicine | DX: D50.9 Iron deficiency anemia, unspecified (principal) | CPT/HCPCS: 96365; J1756 ==

== ENCOUNTER 2023-05-13 13:07 | Outpatient (REF) | payer MEDICARE, MEDICAID, SELFPAY | END 2023-05-13 13:08 | disposition home or self-care (01) | LOC: HO.MDS 13:07 | PROVIDERS: Visit Provider Internal Medicine | DX: D50.9 Iron deficiency anemia, unspecified (principal) | CPT/HCPCS: 96365; J1756 ==

== ENCOUNTER 2023-05-27 11:13 | Outpatient (REF) | payer MEDICARE, MEDICAID, SELFPAY ==
[2023-05-27 13:55] LABS: Alanine Aminotransferase 13 U/L (0-40); Albumin Level 3.5 g/dL (3.5-5.0); Alkaline Phosphatase 87 U/L (39-117); Anion Gap 14 (12-20); Aspartate Amino Transferase 20 U/L (5-37); Bilirubin Direct < 0.2 mg/dL (0.0-0.5); Bilirubin Total 0.1 mg/dL (0.0-1.0); Blood Urea Nitrogen 15 mg/dL (9-16); Calcium 9.4 mg/dL (8.4-10.2); Carbon Dioxide 27 mmol/L (22-29); Chloride 105 mmol/L (96-108); Cholesterol 117 mg/dL (<200); Estimated Glomerular Filt Rate > 60; HDL Cholesterol 31 mg/dL (>40); LDL Cholesterol Calculated 77 mg/dL (<100); Potassium 4.7 mmol/L (3.3-5.1); Sodium 141 mmol/L (135-145); Total Protein 8.9 g/dL (6.5-8.0); Triglycerides 47 mg/dL (<150)
[2023-05-27 13:58] LABS: Glucose Random 56 mg/dL (60-115)
[2023-05-27 16:57] LABS: Reflex LDLD? No
== END 2023-05-27 11:14 | disposition home or self-care (01) ==
LOC: HO.HHCL 11:13
PROVIDERS: Visit Provider Internal Medicine
DX: Z13.89 Encounter for screening for other disorder (principal)
CPT/HCPCS: 36415; 80048; 80061; 80076

== ENCOUNTER 2023-05-27 12:44 | Outpatient (REF) | payer MEDICARE, MEDICAID, SELFPAY | END 2023-05-27 12:45 | disposition home or self-care (01) | LOC: HO.MDS 12:44 | PROVIDERS: Visit Provider Internal Medicine | DX: D50.9 Iron deficiency anemia, unspecified (principal); E11.9 Type 2 diabetes mellitus without complications; Z79.4 Long term (current) use of insulin | CPT/HCPCS: 36415; 80048; 80061; 80076; 96365; J1756 ==

== ENCOUNTER 2023-05-29 05:12 | Emergency (ER) | payer MEDICARE, MEDICAID, SELFPAY ==
[2023-05-29] VITALS (7 sets, daily range): BP systolic 117–133; BP diastolic 55–76; PULSE 102–110; RESP 14–18; O2SAT 93–100; BMI 27.0
--- NOTE | ~2023-05-29 | XR_ITS ---
EXAMINATION: XR CHEST CLINICAL INFORMATION: Shortness of breath/productive cough. COMPARISON: 06/26/2021 TECHNIQUE: Frontal view of the chest was obtained. FINDINGS: Lungs are clear. No consolidation, pneumothorax, or pleural effusion. Cardiac and meniscal contours are normal. Pulmonary vasculature is unremarkable. No acute osseous findings. Osteoarthritis is present in the acromioclavicular and glenohumeral joints. XR/XR chest 1V IMPRESSION: No acute cardiopulmonary findings.
[2023-05-29 06:17] LABS: MANUAL DIFF FLAG NO
--- NOTE | 2023-05-29 06:22 | PC.NURSE ---
Patient brought in from home for evaluation of shortness of breath, bilateral rhonchi/wheezes, productive cough. Initially the patient was found 89-90% on room air then improved with duoneb in place by EMS. Patient has been saturating 89-94% on RA at ED, place on supplemental O2 at 1 LPM via NC with improvement in O2 Sat 92-95%. Labs drawn, patient swabbed for COVID and Influenza, cooler man in place. Patient has chronic F/C in place. Patient's daughter at bedside, call perkins within patient's reach. [ End ]
[2023-05-29 06:36] LABS: Alanine Aminotransferase 14 U/L (0-40); Albumin Level 3.3 g/dL (3.5-5.0); Alkaline Phosphatase 85 U/L (39-117); Anion Gap 14 (12-20); Aspartate Amino Transferase 27 U/L (5-37); Bilirubin Total 0.2 mg/dL (0.0-1.0); Blood Urea Nitrogen 11 mg/dL (9-16); COVID-19 Test Negative (Negative); Calcium 9.1 mg/dL (8.4-10.2); Carbon Dioxide 26 mmol/L (22-29); Chloride 103 mmol/L (96-108); Creatinine Clr Calc Pharmacy 106.7; Estimated Glomerular Filt Rate > 60; Glucose Random 163 mg/dL (60-115); IDNOW Serial# 152EDE1D; Potassium 4.6 mmol/L (3.3-5.1); Sodium 138 mmol/L (135-145); Total Protein 8.7 g/dL (6.5-8.0)
[2023-05-29 06:37] LABS: IDNOW Serial# 08D9AD1C; Influenza A Negative (Negative); Influenza B2 Negative (Negative)
[2023-05-29 06:38] LABS: Basophils Absolute Auto 0.1 X10*3/uL (0.0-0.2); Basophils Percent Auto 1.1 % (0-2); Eosinophils Absolute Auto 0.3 X10*3/uL (0.0-0.4); Eosinophils Percent Auto 6.3 % (0-4); Hematocrit 35.5 % (42.0-52.0); Hemoglobin 10.5 g/dl (14.0-18.0); Imm Gran Abs Auto 0.02 X10*3/uL (0.00-0.03); Imm Gran Pct Auto 0.4 % (0.0-0.4); Lymphocytes Absolute Auto 1.2 X10*3/uL (1.2-4.9); Lymphocytes Percent Auto 25.1 % (20-40); Mean Corpuscular HGB Conc 29.6 g/dl (31.0-36.0); Mean Corpuscular Hemoglobin 25.7 pg (27.0-33.0); Mean Corpuscular Volume 86.8 fL (80.0-98.0); Mean Platelet Volume 9.8 fL (9.4-12.4); Monocytes Absolute Auto 0.5 X10*3/uL (0.1-1.2); Neutrophils Absolute Auto 2.6 x10*3/uL (2.0-8.3); Neutrophils Percent Auto 56.1 % (45-73); Platelet Count 249 X10*3/uL (160-400); Red Blood Count 4.09 X10*6/uL (4.60-5.80); Red Cell Distribution Width 17.2 % (11.0-16.0); White Blood Count 4.6 X10*3/uL (4.8-10.8)
--- NOTE | 2023-05-29 07:16 | PC.NURSE ---
assumed care of this pt at 0700. pt alert and oriented x3, vss, he reports mid chest discomfort with cough, reports non-productive cough at this time. pt took his morning home meds while in the room and reports a poc of 157. visitor at his bedside.
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
[2023-05-29 08:33] LABS: C Reactive Protein 5.95 mg/dL (< or = 0.50)
[2023-05-29] MEDS: Albuterol/Iprat 2.5/0.5MG 3 ML AMPUL.NEB INHALE ×2 (08:36→09:43)
[2023-05-29 10:00] LABS: Troponin-I High Sensitivity < 2.7 ng/L (<3.5-35.0)
[2023-05-29 10:05] LABS: B Type Natriuretic Peptide 13 pg/mL (<100)
[2023-05-29] MEDS: Albuterol Sulfate 90 MCG 8 GM INHALER 4 PUFF INHALE (10:26)
[2023-05-29 11:12] LABS: Adenovirus PCR Not Detected (Not Detect.); Bordetella parapertussis PCR Not Detected (Not Detect.); Bordetella pertussis PCR Not Detected (Not Detect.); Chlamydia pneumoniae PCR Not Detected (Not Detect.); Coronavirus 229E PCR Not Detected (Not Detect.); Coronavirus HKU1 PCR Not Detected (Not Detect.); Coronavirus NL63 PCR Not Detected (Not Detect.); Coronavirus OC43 PCR Not Detected (Not Detect.); Human metapneumovirus PCR Not Detected (Not Detect.); Influenza A PCR Not Detected (Not Detect.); Influenza B PCR Not Detected (Not Detect.); Mycoplasma pneumoniae PCR Not Detected (Not Detect.); Parainfluenza 1 PCR Not Detected (Not Detect.); Parainfluenza 2 PCR Not Detected (Not Detect.); Parainfluenza 3 PCR Not Detected (Not Detect.); Parainfluenza 4 PCR Not Detected (Not Detect.); RSV PCR Detected (Not Detect.); Rhino/Enterovirus PCR Not Detected (Not Detect.); SARS-CoV-2 PCR Not Detected (Not Detect.)
[2023-05-29] MEDS: Azithromycin 500 MG TABLET PO (11:50)
[2023-05-29] MEDS: predniSONE 20 MG TABLET 60 MG PO (11:50)
--- NOTE | 2023-05-29 12:18 | PC.NURSE ---
pt cleared for discharge, discharge instructions reviewed with pt. pt medicated prior to discharge. f/c emptied - 500 ml. pt d/c'd via ambulance. vss.
== END 2023-05-29 12:21 | disposition home or self-care (01) ==
PROVIDERS: Emergency Provider Emergency Medicine; PCP Internal Medicine
DX: J20.5 Acute bronchitis due to respiratory syncytial virus (principal); R06.02 Shortness of breath; N39.0 Urinary tract infection, site not specified; G82.20 Paraplegia, unspecified; R05.9 Cough, unspecified; Z11.52 Encounter for screening for COVID-19; Z79.899 Other long term (current) drug therapy
CPT/HCPCS: 36415; 71045; 80053; 83880; 84484; 85025; 86140; 87502; 87633; 87635; 94640; 94664; 99285

== ENCOUNTER 2023-06-14 14:09 | Outpatient (REF) | payer MEDICARE, MEDICAID, SELFPAY ==
--- NOTE | ~2023-06-14 | XR_ITS ---
EXAMINATION: XR SHOULDER, RIGHT CLINICAL INFORMATION: Pain. COMPARISON: None available. TECHNIQUE: AP external rotation views of the right shoulder are submitted. FINDINGS: Bony alignment and mineralization are normal. The glenohumeral joint is intact and shows mild osteoarthritic change. The acromioclavicular and coracoclavicular intervals are normal. There is moderately severe osteoarthritic change of the acromioclavicular joint. No fracture or dislocation is seen. There is no abnormal soft tissue calcification or foreign body. No right pneumothorax is seen. XR/XR shoulder LT min 2V IMPRESSION: 1. There is mild osteoarthritic change of the right glenohumeral joint, and moderately severe osteoarthritic change is seen of the right acromioclavicular joint. 2. No fracture or dislocation is seen. EXAMINATION: XR SHOULDER, LEFT CLINICAL INFORMATION: Pain. COMPARISON: None available. TECHNIQUE: AP external rotation views of the left shoulder are submitted. FINDINGS: Bony alignment and mineralization are normal. The glenohumeral joint is intact and shows very mild peripheral osteophyte formation. The acromioclavicular and coracoclavicular intervals are normal. No fracture or dislocation is seen. There is a small distal acromial undersurface osteophyte. A small subchondral cyst is seen of the superior humeral head. No fracture or dislocation is seen. There is no abnormal soft tissue calcification or foreign body. No left pneumothorax is seen. IMPRESSION: 1. No fracture or dislocation is seen. 2. There is very mild osteoarthritic change of the left glenohumeral joint. 3. Findings suggest slight left rotator cuff impingement, without cherry calcific tendinitis noted.
--- NOTE | ~2023-06-14 | XR_ITS ---
EXAMINATION: XR SHOULDER, RIGHT CLINICAL INFORMATION: Pain. COMPARISON: None available. TECHNIQUE: AP external rotation views of the right shoulder are submitted. FINDINGS: Bony alignment and mineralization are normal. The glenohumeral joint is intact and shows mild osteoarthritic change. The acromioclavicular and coracoclavicular intervals are normal. There is moderately severe osteoarthritic change of the acromioclavicular joint. No fracture or dislocation is seen. There is no abnormal soft tissue calcification or foreign body. No right pneumothorax is seen. XR/XR shoulder RT min 2V IMPRESSION: 1. There is mild osteoarthritic change of the right glenohumeral joint, and moderately severe osteoarthritic change is seen of the right acromioclavicular joint. 2. No fracture or dislocation is seen. EXAMINATION: XR SHOULDER, LEFT CLINICAL INFORMATION: Pain. COMPARISON: None available. TECHNIQUE: AP external rotation views of the left shoulder are submitted. FINDINGS: Bony alignment and mineralization are normal. The glenohumeral joint is intact and shows very mild peripheral osteophyte formation. The acromioclavicular and coracoclavicular intervals are normal. No fracture or dislocation is seen. There is a small distal acromial undersurface osteophyte. A small subchondral cyst is seen of the superior humeral head. No fracture or dislocation is seen. There is no abnormal soft tissue calcification or foreign body. No left pneumothorax is seen. IMPRESSION: 1. No fracture or dislocation is seen. 2. There is very mild osteoarthritic change of the left glenohumeral joint. 3. Findings suggest slight left rotator cuff impingement, without cherry calcific tendinitis noted.
[2023-06-14 17:17] LABS: Creatinine Urine 65.96 mg/dL; Microalbum/Creatinine Ratio Ur 34.8 ug/mg cr (<30)
== END 2023-06-14 14:10 | disposition home or self-care (01) ==
LOC: HO.HHCL 14:09
PROVIDERS: Visit Provider Internal Medicine
DX: E11.9 Type 2 diabetes mellitus without complications (principal); M25.511 Pain in right shoulder; M25.512 Pain in left shoulder; Z79.4 Long term (current) use of insulin
CPT/HCPCS: 73030; 82043; 82570

== ENCOUNTER 2023-07-29 12:00 | Outpatient (RCR) | payer MEDICARE, MEDICAID, SELFPAY | END 2023-10-12 09:17 | disposition home or self-care (01) | LOC: HO.PT 12:00 | PROVIDERS: PCP Internal Medicine; Visit Provider Internal Medicine | DX: M25.511 Pain in right shoulder (principal); M25.512 Pain in left shoulder | CPT/HCPCS: 97110; 97140; 97161; 97530 ==

== ENCOUNTER 2023-07-29 14:49 | Outpatient (REF) | payer MEDICARE, MEDICAID, SELFPAY ==
--- NOTE | ~2023-07-29 | XR_ITS ---
EXAMINATION: XR CERVICAL SPINE CLINICAL INFORMATION: Neck pain radiating to both shoulders COMPARISON: None available. TECHNIQUE: 3 views of the cervical spine were obtained. FINDINGS: Exam limited due to patient mobility. Curvature of the proximal cervical spine to the right and lower cervical and upper thoracic spine to the left. Mild 2 mm anterior subluxation of C4 with respect to C3 and C5. Bone alignment is otherwise normal. The C1 dens articulation not well visualized. There is degenerative spondylosis at C2-C3, C3-C4 and C5-C6. Normal disc spaces. It is difficult to exclude a old trauma to the dens/accessory ossification center versus platybasia. There may be old trauma to the left first rib versus accessory ossification center. Soft tissues are normal. XR/XR cervical spine 3V IMPRESSION: Limited exam. C1 dens articulation not well visualized. Question of platybasia versus old trauma to the dens. Mild degenerative spondylosis
== END 2023-07-29 14:50 | disposition home or self-care (01) ==
LOC: HO.HHCX 14:49
PROVIDERS: Visit Provider Internal Medicine Geriatric Medicine
DX: M54.2 Cervicalgia (principal); G89.29 Other chronic pain
CPT/HCPCS: 72040

== ENCOUNTER 2023-11-09 15:45 | Outpatient (REF) | payer MEDICARE, MEDICAID, SELFPAY ==
[2023-11-09 18:28] LABS: Blood Urea Nitrogen 11 mg/dL (9-16); Estimated Glomerular Filt Rate > 60
== END 2023-11-09 15:46 | disposition home or self-care (01) ==
LOC: HO.HHCL 15:45
PROVIDERS: Visit Provider Internal Medicine
DX: Z76.89 Persons encountering health services in other specified circumstances (principal)
CPT/HCPCS: 36415; 82565; 84520

== ENCOUNTER 2023-11-23 10:21 | Outpatient (REF) | payer MEDICARE, MEDICAID, SELFPAY ==
[2023-11-23 10:57] LABS: MANUAL DIFF FLAG NO
[2023-11-23 11:10] LABS: Basophils Absolute Auto 0.1 X10*3/uL (0.0-0.2); Basophils Percent Auto 1.4 % (0-2); Eosinophils Absolute Auto 0.3 X10*3/uL (0.0-0.4); Eosinophils Percent Auto 5.5 % (0-4); Hematocrit 30.5 % (42.0-52.0); Hemoglobin 8.6 g/dl (14.0-18.0); Imm Gran Abs Auto 0.02 X10*3/uL (0.00-0.03); Imm Gran Pct Auto 0.4 % (0.0-0.4); Lymphocytes Absolute Auto 1.5 X10*3/uL (1.2-4.9); Lymphocytes Percent Auto 29.2 % (20-40); Mean Corpuscular HGB Conc 28.2 g/dl (31.0-36.0); Mean Corpuscular Hemoglobin 23.4 pg (27.0-33.0); Mean Corpuscular Volume 82.9 fL (80.0-98.0); Monocytes Absolute Auto 0.3 X10*3/uL (0.1-1.2); Monocytes Percent Auto 6.5 % (2-11); Neutrophils Absolute Auto 2.9 x10*3/uL (2.0-8.3); Platelet Count 361 X10*3/uL (160-400); Red Blood Count 3.68 X10*6/uL (4.60-5.80); Red Cell Distribution Width 14.1 % (11.0-16.0); White Blood Count 5.1 X10*3/uL (4.8-10.8)
[2023-11-23 14:01] LABS: Alanine Aminotransferase 9 U/L (0-40); Albumin Level 3.2 g/dL (3.5-5.0); Alkaline Phosphatase 81 U/L (39-117); Anion Gap 10 (12-20); Aspartate Amino Transferase 15 U/L (5-37); Bilirubin Total 0.1 mg/dL (0.0-1.0); Blood Urea Nitrogen 13 mg/dL (9-16); Calcium 9.4 mg/dL (8.4-10.2); Carbon Dioxide 30 mmol/L (22-29); Chloride 106 mmol/L (96-108); Cholesterol 101 mg/dL (<200); Estimated Glomerular Filt Rate > 60; Glucose Random 89 mg/dL (60-115); HDL Cholesterol 30 mg/dL (>40); LDL Cholesterol Calculated 62 mg/dL (<100); Potassium 4.6 mmol/L (3.3-5.1); Sodium 141 mmol/L (135-145); Total Protein 8.2 g/dL (6.5-8.0); Triglycerides 48 mg/dL (<150)
== END 2023-11-23 10:22 | disposition home or self-care (01) ==
LOC: HO.HHCL 10:21
PROVIDERS: Visit Provider Internal Medicine
DX: E11.9 Type 2 diabetes mellitus without complications (principal); Z79.4 Long term (current) use of insulin
CPT/HCPCS: 36415; 80053; 80061; 85025

== ENCOUNTER 2023-12-15 14:20 | Outpatient (REF) | payer MEDICARE, MEDICAID, SELFPAY ==
[2023-12-15 16:35] LABS: Prostate Specific Antigen Scr 0.22 ng/mL (<0.05-4.0)
[2023-12-15 16:42] LABS: Estimated Average Glucose 131 mg/dL; Hemoglobin A1c % 6.2 % (<6.0)
== END 2023-12-15 14:21 | disposition home or self-care (01) ==
LOC: HO.HHCL 14:20
PROVIDERS: Visit Provider Internal Medicine
DX: Z00.00 Encounter for general adult medical examination without abnormal findings (principal); E11.9 Type 2 diabetes mellitus without complications; Z79.4 Long term (current) use of insulin; Z12.5 Encounter for screening for malignant neoplasm of prostate
CPT/HCPCS: 36415; 83036; 84153

== ENCOUNTER 2024-02-03 10:40 | Day surgery (SDC) | payer MEDICARE, MEDICAID, SELFPAY ==
--- NOTE | ~2024-02-03 | CT_ITS ---
PROCEDURES: 1. Limited preprocedure CT of the pelvis. Permanent images saved in PACS. 2. 11 g bone marrow core biopsy of the left posterior iliac spine 3. 11 g bone marrow aspirate of the left posterior iliac spine COMPLICATIONS: None ESTIMATED BLOOD LOSS: < 5 ml CONTRAST: None SPECIMENS: 11 g core placed in formalin. Bone marrow aspirate placed in EDTA and sodium heparin tubes PROCEDURE NOTE: The procedure, risks, benefits, and alternatives were carefully explained to the patient and written informed consent was obtained. The patient was placed prone on the CT table. A timeout was performed. A limited CT of the pelvis was performed to localize posterior iliac spine and choose appropriate needle entry and trajectory. The patient was prepped and draped in usual sterile fashion. The skin, subcutaneous tissues, and periosteum were anesthetized with lidocaine. Under CT guidance, an 11-gauge bone marrow biopsy needle was advanced into the posterior iliac spine, with the tip positioned slightly cephalad. An 11-gauge core biopsy of the bone marrow was performed and was placed in formalin. Next, the 11-gauge bone marrow biopsy needle was then advanced into the posterior iliac spine, under CT guidance, with the tip positioned slightly caudal. A bone marrow aspirate was performed. The specimen was placed in the provided EDTA and sodium heparin tubes. The needle was removed. A dry dressing was applied and secured with Tegaderm. There were no immediate complications. The patient was stable after the procedure and was transferred to the post anesthesia care unit. The procedure was done under moderate sedation with a dedicated nurse for monitoring of vital signs. CT/CT biopsy asp core bone marrow Impression: CT-guided bone marrow biopsy and aspirate Electronically signed by: Issa Serrano MD 02/23/2024 01:55 PM EDT
[2024-02-03 11:16] VITALS: BP 120/61; PULSE 75; RESP 16; TEMP 36.6; O2SAT 98
[2024-02-03 11:19] LABS: Baso%MD 0.9 %; Eos%MD 4.6 %; Hematocrit 32.5 % (42.0-52.0); Hemoglobin 9.6 g/dl (14.0-18.0); IG%MD 0.2 %; Lymph%MD 25.4 %; Mean Corpuscular HGB Conc 29.5 g/dl (31.0-36.0); Mean Corpuscular Hemoglobin 24.8 pg (27.0-33.0); Mean Platelet Volume 9.4 fL (9.4-12.4); Mono%MD 8.8 %; Neut%MD 60.1 %; Platelet Count 303 X10*3/uL (160-400); Red Blood Count 3.87 X10*6/uL (4.60-5.80); Red Cell Distribution Width 20.8 % (11.0-16.0); White Blood Count 4.5 X10*3/uL (4.8-10.8)
--- NOTE | 2024-02-03 11:21 | PC.NURSE ---
Glucose at 1120 67 notified D Sha CLARKE. Pt is asymptomatic at this time.
[2024-02-03 11:24] LABS: Glucose, Whole Blood 67 mg/dL (60-115)
[2024-02-03 11:33] LABS: Alanine Aminotransferase 9 U/L (0-40); Albumin Level 3.5 g/dL (3.5-5.0); Alkaline Phosphatase 87 U/L (39-117); Anion Gap 13 (12-20); Aspartate Amino Transferase 14 U/L (5-37); Bilirubin Total 0.2 mg/dL (0.0-1.0); Blood Urea Nitrogen 16 mg/dL (9-16); Calcium 9.2 mg/dL (8.4-10.2); Carbon Dioxide 28 mmol/L (22-29); Chloride 105 mmol/L (96-108); Estimated Glomerular Filt Rate > 60; Glucose Random 82 mg/dL (60-115); Potassium 4.8 mmol/L (3.3-5.1); Sodium 141 mmol/L (135-145); Total Protein 8.2 g/dL (6.5-8.0)
[2024-02-03 11:59] LABS: Band Neutrophils Percent 0 % (3-5); Basophils Percent Manual 1 % (0-2); Eosinophils Absolute Manual 0.4 X10*3/uL (0.0-0.4); Eosinophils Percent Manual 8 % (0-4); Lymphocytes Absolute Manual 0.9 X10*3/uL (1.2-4.9); Lymphocytes Percent Manual 19 % (20-40); Monocytes Absolute Manual 0.2 X10*3/uL (0.1-1.2); Monocytes Percent Manual 4 % (2-11); Neutrophils Absolute Manual 3.1 X10*3/uL (2.0-8.3); Neutrophils Percent Manual 68 % (45-73)
[2024-02-03 12:05] LABS: RBC Morphology NOTED
[2024-02-03 12:06] LABS: Hypochromasia 1+ (5-14) /OIF; Microcytosis 1+ (5-14) /OIF
[2024-02-03] MEDS: Dextrose 10 % 250 ML 750 ML IV (12:06)
[2024-02-03 12:07] LABS: Platelet Estimate NORMAL (NORMAL); Platelet Morphology Comment NORMAL
[2024-02-03 12:44] LABS: Glucose, Whole Blood 157 mg/dL (60-115)
--- NOTE | 2024-02-03 13:01 | MHC.SHP ---
Pre-Procedural Eval Section A - 24 Hr Update-Section A only Date of Service: 02/03/24 Section B - Complete if H&P > 30 days Chief Complaint: anemia ?MDS, BONE MARROW BIO/ASPIRATION Details of Present Illness: 69 y/o man with normocytic anemia. Hematology requests a bone marrow biopsy. Relevant Family History (Specify if Yes): No Relevant Social History: None Present Medications: see Short Stay Collaborative assessment Medical History: Significant History History of Previous Operations: Relevant previous surgery/procedure and date(s) Allergies: Allergies Allergy/AdvReac Type Severity Reaction Status Date / Time levofloxacin [From LEVAQUIN] Allergy Intermediate HIVES, Verified 01/26/24 13:36 SKIN RASH shellfish derived Allergy Intermediate itching Verified 01/26/24 13:36 throat Review of Systems Sugical H&P ROS: Negative: Constitution, Cardiovascular and Respiratory and Yes, Specify: Musculoskeletal (left hip pain) Exam Surgical H&P Exam: Normal: Heart, Normal: Lungs and Normal: Neurological Plan 69 y/o man with normocytic anemia -Bone marrow biopsy Time Spent With Patient Time: Total time managing care of this patient today ____ minutes.
[2024-02-03 13:02] VITALS: BMI 27.1
[2024-02-03 13:45] VITALS: BP 105/55; PULSE 68; RESP 16; TEMP 36.6; O2SAT 96
[2024-02-03 13:56] LABS: Bone Marrow SEE SEPARATE REPORT
[2024-02-03 14:00] VITALS: BP 95/55; PULSE 70; RESP 18; O2SAT 98
[2024-02-03 14:15] VITALS: BP 104/56; PULSE 73; RESP 18; TEMP 36.4; O2SAT 99
== END 2024-02-03 14:19 | disposition home or self-care (01) ==
PROVIDERS: Internal Medicine Medical Oncology; Pathology Anatomic Pathology & Clinical Pathology; Physician Assistant Surgical; PCP Internal Medicine; Visit Provider Internal Medicine
PROC: (CPT 38221; principal; 2024-02-03 13:00)
DX: D64.9 Anemia, unspecified (principal); D50.9 Iron deficiency anemia, unspecified; E11.9 Type 2 diabetes mellitus without complications; I10 Essential (primary) hypertension; G82.20 Paraplegia, unspecified; T14.8XXS Other injury of unspecified body region, sequela; Z86.711 Personal history of pulmonary embolism; Z79.01 Long term (current) use of anticoagulants; Z79.82 Long term (current) use of aspirin; Z79.4 Long term (current) use of insulin; Z79.84 Long term (current) use of oral hypoglycemic drugs; Z79.1 Long term (current) use of non-steroidal anti-inflammatories (NSAID); Z79.899 Other long term (current) drug therapy; Z98.890 Other specified postprocedural states; Z88.1 Allergy status to other antibiotic agents
CPT/HCPCS: 36415; 38222; 80053; 81455; 82947; 85007; 85027; 88184; 88185; 88237; 88264; 88305; 88311; 88313; 88342; J2250; J2310; J3010

== ENCOUNTER → 2024-02-03 11:58 | Outpatient (BNV) | payer MEDICARE, MEDICAID, SELFPAY | PROVIDERS: PCP Internal Medicine; Visit Provider Student in an Organized Health Care Education/Training Program | DX: D64.9 Anemia, unspecified (principal) | CPT/HCPCS: 38222; 77012; 99152 ==

== ENCOUNTER 2024-02-10 18:08 | Outpatient (REF) | payer MEDICARE, MEDICAID, SELFPAY | END 2024-02-10 18:09 | disposition home or self-care (01) | LOC: HO.HHCLNP 18:08 | PROVIDERS: Visit Provider Family Medicine | DX: L02.91 Cutaneous abscess, unspecified (principal) | CPT/HCPCS: 87070; 87077; 87186; 87205 ==

== ENCOUNTER 2024-02-20 15:16 | Outpatient (REF) | payer MEDICARE, MEDICAID, SELFPAY ==
--- NOTE | ~2024-02-20 | MR_ITS ---
EXAMINATION: MR PELVIS WITHOUT AND WITH CONTRAST CLINICAL INFORMATION: Left ischial tuberosity, greater trochanter ulceration. Evaluate for osteomyelitis. COMPARISON: Most recent left hip MRI dated 06/09/2022. CT bone biopsy dated 02/03/2024. TECHNIQUE: Multisequence MR imaging of the pelvis was obtained before and after the IV administration of 9.5 mL Gadavist contrast on a high-field strength scanner. FINDINGS: Soft tissue ulceration along the inferior aspect of the left initial tuberosity measuring approximately 6.2 x 5.6 cm (AP x ML) with adjacent skin thickening and subcutaneous edema, consistent with chronic cellulitis. No organized fluid collection or abscess formation. The ulcer extends deep to the cortex of the ischial tuberosity where there is increased T2 and decreased T1 signal as well as postcontrast marrow edema, consistent with acute osteomyelitis. There is bony spurring along the anterior aspect of the ischial tuberosity measuring up to 3.3 cm in AP dimension. Additional possible soft tissue ulceration along the lateral aspect of the greater trochanter with skin thickening, subcutaneous edema, and mild enhancement, consistent with cellulitis. No organized fluid collection or abscess formation. No adjacent marrow edema or evidence of acute osteomyelitis within the greater trochanter. No stress reaction, fracture, or avascular necrosis. Mild bilateral hip osteoarthritis. Severe degenerative disc disease and facet arthropathy within the lower lumbar spine. Changes within the left posterior iliac, consistent with recent bone biopsy. Diffuse muscle atrophy. Heterogeneity and irregularity along the proximal left hamstring tendon in the region of the anterior ischial tuberosity enthesophyte, consistent with chronic tendinopathy and probable partial tearing. No complete, full-thickness tendon tear or tendon retraction. No soft tissue mass or organized fluid collection. The visualized intrapelvic structures are grossly unremarkable. Mildly prominent left inguinal lymph nodes, similar when compared to the MRI dated 06/09/2022. MR/MR pelvis wo/w con IMPRESSION: 1. Soft tissue ulceration along the inferior aspect of the left ischial tuberosity with adjacent cellulitis. No organized fluid collection or abscess formation. Underlying acute osteomyelitis within the ischial tuberosity. 2. Possible soft tissue ulceration along the lateral aspect of the left greater trochanter with adjacent cellulitis. No associated osteomyelitis. 3. Chronic tendinopathy and probable partial tearing of the proximal left hamstring tendon. No full-thickness tendon tear or tendon retraction. 4. Mild bilateral hip osteoarthritis. Severe degenerative disc disease and facet arthropathy within the lower lumbar spine. 5. Mildly prominent left inguinal lymph nodes, similar when compared to the MRI dated 06/09/2022. Electronically signed by: Holger Gutiérrez MD 02/21/2024 09:22 AM EDT
[2024-02-20] MEDS: gadobutroL 10 ML VIAL IVPUSH (16:34)
== END 2024-02-20 15:17 | disposition home or self-care (01) ==
LOC: HO.MRI 15:16
PROVIDERS: PCP Internal Medicine; Visit Provider Surgery
DX: L89.222 Pressure ulcer of left hip, stage 2 (principal); T81.31XS Disruption of external operation (surgical) wound, not elsewhere classified, sequela
CPT/HCPCS: 72197; A9585

== ENCOUNTER 2024-02-22 09:38 | Outpatient (AMB) | payer MEDICARE, MEDICAID, SELFPAY ==
--- NOTE | 2024-02-22 09:42 | MHC.OFFVIS ---
Vital Signs 02/22/24 09:45 Height 6 ft 2 in Weight 211 lb BMI 27.1 BP 122/68 Blood Pressure Location Lt brachial Position Sitting Pulse 68 Intake Visit Reasons: abscess of the left arm Intake Note: Patient referred by pcp Dr. Lopez for abscess on Lt arm. Present for about 1m. Doxy 100mg X10d course prescribed. Patient c/o: reports site healed well with abx txt. Field Crop I Farmworker Required: Yes Field Crop I Farmworker Name: Helen DEVINE Accompanied by: Self / Same As Patient Allergies levofloxacin [From LEVAQUIN] Allergy (Intermediate, Verified 02/22/24 09:44) HIVES, SKIN RASH shellfish derived Allergy (Intermediate, Verified 02/22/24 09:44) itching throat HPI Comments Details: Patient presents for evaluation status post a left upper arm abscess/carbuncle. He was seen at an outpatient clinic, given local wound care and antibiotics and presents here for follow-up. Patient has had marked improvement of his symptoms. He has had history of these in the past. Chart was reviewed and patient evaluated. Patient is paraplegic secondary to a back injury 14 years ago requiring surgery in [place]. [facility] Medical History Osteomyelitis History of blood transfusion On anticoagulant therapy Iron deficiency anemia Decubitus ulcer of right ischial tuberosity region Osteomyelitis Right foot infection (Unknown) Diabetes Hx pulmonary embolism HTN (hypertension) Paraplegia Osteomyelitis of left foot Surgical History Hx of skin graft Hx of endoscopy Status post debridement Hx of colonoscopy Hx of foot surgery History of spinal surgery Family History Father Mother Brother No problems noted. Sister No problems noted. Sister No problems noted. Sister No problems noted. Son No problems noted. Son No problems noted. Son No problems noted. Son No problems noted. Daughter No problems noted. Daughter No problems noted. Social History Household Members: Family Household Members Other:: roommate Housing: House Are you a primary home health care coordinator to a significant other at home: No Do you presently have visiting nurse or other home services: Yes Alcohol intake: former Comment: Paraplegic Patient Tobacco Use Status: Never used Tobacco Second Hand Smoke Exposure: No Advance Directives Date on File: 03/10/21 service: No Current occupational status: disabled Physical Exam Vital Signs: Last Vital Signs Pulse 68 02/22/24 09:45 BP 122/68 02/22/24 09:45 BMI result Body Mass Index 27.1 Const Other: Wheelchair bound patient Extrem Other: Patient has old resolving carbuncle of the left upper arm. He has a 1 which is healing which was the 1 of concern. The erythema and edema according the patient has markedly reduced. Assessment & Plan Assessment & Plan (1) Carbuncle of arm: Code(s): L02.439 - Carbuncle of limb, unspecified Category: Surgical Plan At present, no surgical intervention is warranted. Patient was continue local care and will otherwise follow-up p.r.n.. All questions answered. Coding Level of Care Code New Pt Level 3 (98637) Diagnoses Carbuncle of arm L02.439
[2024-02-22 09:45] VITALS: BP 122/68; PULSE 68; BMI 27.1
== END 2024-02-22 10:23 | disposition home or self-care (01) ==
PROVIDERS: PCP Internal Medicine; Referring Provider Family Medicine; Visit Provider Surgery
DX: L02.439 Carbuncle of limb, unspecified (principal)
CPT/HCPCS: 99203

== ENCOUNTER → 2024-02-22 09:38 | Outpatient (BNVA) | payer MEDICARE, MEDICAID, SELFPAY | PROVIDERS: PCP Internal Medicine; Referring Provider Family Medicine; Visit Provider Surgery | DX: L02.434 Carbuncle of left upper limb (principal); Z79.2 Long term (current) use of antibiotics | CPT/HCPCS: 99202 ==

== ENCOUNTER 2024-03-07 14:01 | Outpatient (AMB) | payer MEDICARE, MEDICAID, SELFPAY ==
--- NOTE | 2024-03-07 14:06 | A.OFFVIS_ITS ---
Vital Signs 3 03/07/24 14:16 Pulse 89 Pulse Source Pulse Oximeter Temp 97.6 F Temp Source Oral Pulse Oximetry (%) 96 Oxygen Delivery Method Room Air Intake Visit Reasons: Wound care reff abcess Cottage Cheese Maker Required: Yes Cottage Cheese Maker Services: Cottage Cheese Maker Present Cottage Cheese Maker Name: Gillian Melton CMA Information Interpreted: clinical only Manufacturer'S Service Representative: Manufacturer'S Service Representative Present Allergies levofloxacin [From LEVAQUIN] Allergy (Intermediate, Verified 03/07/24 14:16) HIVES, SKIN RASH shellfish derived Allergy (Intermediate, Verified 03/07/24 14:16) itching throat HPI HPI Wound care reff abcess: Details: I have seen him before for OM sacrum. He has discomfort left hip and acute OM left ischial tuberosity per MRI on 02/26. He has had IV Vancomycin MRSA in past and linezolid. He had plastics surgery flap done and broken down twice. [facility] Medical History Osteomyelitis History of blood transfusion On anticoagulant therapy Iron deficiency anemia Decubitus ulcer of right ischial tuberosity region Osteomyelitis Right foot infection (Unknown) Diabetes Hx pulmonary embolism HTN (hypertension) Paraplegia Osteomyelitis of left foot Surgical History Hx of skin graft Hx of endoscopy Status post debridement Hx of colonoscopy Hx of foot surgery History of spinal surgery Family History Father Mother Brother No problems noted. Sister No problems noted. Sister No problems noted. Sister No problems noted. Son No problems noted. Son No problems noted. Son No problems noted. Son No problems noted. Daughter No problems noted. Daughter No problems noted. Social History Household Members: Family Household Members Other:: roommate Housing: House Are you a primary transitional care nurse to a significant other at home: No Do you presently have visiting nurse or other home services: Yes Alcohol intake: former Comment: Paraplegic Patient Tobacco Use Status: Never used Tobacco Second Hand Smoke Exposure: No Advance Directives Date on File: 03/10/21 service: No Current occupational status: disabled Review of Systems Const All systems reviewed & are unremarkable except as noted in HPI and below Physical Exam Vital Signs: Last Vital Signs Temp 97.6 F 03/07/24 14:16 Pulse 89 03/07/24 14:16 Pulse Ox 96 03/07/24 14:16 Oxygen Delivery Method Room Air 03/07/24 14:16 Const Other: General: cooperative Orientation/consciousness: patient oriented x3 HEENT Head: Yes normal to inspection Mouth: Normal oral and palatal mucosa present Eyes General: appearance normal, both eyes and all related structures Pupils: Equal, round and reactive pupils present Resp Effort & Inspection: normal respiratory effort Cardio Rate: regular rate Rhythm: regular rhythm GI Palpation (GI): Soft to palpation and nontender General: Yes no CVA tenderness Back/Spine/Pelvis Back: no CVA tenderness Skin General skin exam: no rashes or lesions noted Neuro General: patient oriented x3 Cranial nerves: Yes CN's II-XII intact bilaterally and Yes Equal, round and reactive pupils present Extrem General: Yes normal to inspection Psych Appearance: grossly normal Assessment & Plan Assessment & Plan (1) Osteomyelitis: Comment: Not resolvable without ability to have closure. Code(s): M86.9 - Osteomyelitis, unspecified Category: Medical Plan: Temporize with po linezolid. IV antibiotics would not help as failed closure. Can revisit plastic surgery however. Medications: New 2 linezolid 600 mg PO BID 42 tabs 0RF 21 days Coding Level of Care Code Est Pt Level 3 (96995) Diagnoses Osteomyelitis M86.9
[2024-03-07 14:16] VITALS: PULSE 89; TEMP 36.4; O2SAT 96
== END 2024-03-07 15:07 | disposition home or self-care (01) ==
LOC: HO.HID 14:01
PROVIDERS: PCP Internal Medicine; Visit Provider Internal Medicine
DX: M86.9 Osteomyelitis, unspecified (principal)
CPT/HCPCS: 99213

== ENCOUNTER → 2024-03-07 14:01 | Outpatient (BNVA) | payer MEDICARE, MEDICAID, SELFPAY | PROVIDERS: PCP Internal Medicine; Visit Provider Internal Medicine | DX: M86.9 Osteomyelitis, unspecified (principal) | CPT/HCPCS: 99212 ==

== ENCOUNTER 2024-03-26 14:30 | Outpatient (AMB) | payer MEDICARE, MEDICAID, SELFPAY ==
[2024-03-26 14:35] VITALS: BP 122/64; PULSE 97; BMI 27.1
--- NOTE | 2024-03-26 14:35 | MHC.OFFVIS ---
Vital Signs 03/26/24 14:35 Height 6 ft 2 in Weight 211 lb BMI 27.1 BMI Reason not done Patient refused/unable BP 122/64 Blood Pressure Location Lt brachial Position Sitting Pulse 97 Pulse Source Monitor Intake Visit Reasons: CURRICULUM SPECIALIST/HTN/DM Syrup Machine Laborer Required: Yes Syrup Machine Laborer Name: SUELLEN [id number] Allergies levofloxacin [From LEVAQUIN] Allergy (Intermediate, Verified 03/07/24 14:16) HIVES, SKIN RASH shellfish derived Allergy (Intermediate, Verified 03/07/24 14:16) itching throat Medication List - Last Reconciled 03/26/24 by Bala Lawler MD acetaminophen 500 mg PO Q8H PRN apixaban (Eliquis) 1 tab PO BID aspirin 1 tab PO DAILY baclofen 40 mg PO TID blood sugar diagnostic (FreeStyle Lite Strips) As directed diclofenac sodium 1% 2 grams topical BID ferrous sulfate (Iron (ferrous sulfate)) 325 mg PO BID gabapentin 800 mg PO BID ibuprofen 800 mg PO Q6H PRN insulin glargine (Lantus Solostar U-100 Insulin) 20 units subcut BEDTIME lancets (TRUEplus Lancets) As directed linezolid 600 mg PO BID 21 days lisinopril 5 mg PO DAILY metformin 1,000 mg PO BID omeprazole 20 mg PO BID@0630,1630 PRN pen needle, diabetic (UltiCare Pen Needle) As directed zinc gluconate 50 mg PO DAILY HPI Comments Details: Thank you for referring [place] in cardiology consultation today for management of syncope. He is a pleasant 69-year-old male, history obtained with help of a certified design architect over the phone. Patient said about 3 months ago he had episodes of very felt lightheaded, with cloudy vision and then passed out. He said then he had to lay down and subsequently had symptoms for long period time. I reviewed all his blood pressure recordings over the many times he has visited the office is and has noted to have occasionally low blood pressures in the systolic 90s. He said he has never had low blood pressure issues. He has never had syncopal episode before that as per him has has never had syncopal episode after that. During the episode while he was having symptoms he did have rapid heart rate. Since then he said he has been doing okay. Drinks enough fluids in the day. He has prior history of paraplegia after a work-related accident 26 years ago and failed surgery, diabetes which is insulin-requiring and currently on lisinopril therapy for possible renal protection. Denies any history of hypertension. Never has had any prior vascular issues. He does have issues with recurrent osteomyelitis and wound cellulitis and decubitus ulcer. He also has catheter associated urinary tract infection. No history of vascular disease or coronary artery disease. [facility] Medical History Osteomyelitis History of blood transfusion On anticoagulant therapy Iron deficiency anemia Decubitus ulcer of right ischial tuberosity region Osteomyelitis Right foot infection (Unknown) Diabetes Hx pulmonary embolism HTN (hypertension) Paraplegia Osteomyelitis of left foot Surgical History Hx of skin graft Hx of endoscopy Status post debridement Hx of colonoscopy Hx of foot surgery History of spinal surgery Family History Father Mother Brother No problems noted. Sister No problems noted. Sister No problems noted. Sister No problems noted. Son No problems noted. Son No problems noted. Son No problems noted. Son No problems noted. Daughter No problems noted. Daughter No problems noted. Social History Household Members: Family Household Members Other:: roommate Housing: House Are you a primary home care rn to a significant other at home: No Do you presently have visiting nurse or other home services: Yes Alcohol intake: former Comment: Paraplegic Patient Tobacco Use Status: Never used Tobacco Second Hand Smoke Exposure: No Advance Directives Date on File: 03/10/21 service: No Current occupational status: disabled Review of Systems Const Denies weakness ENT Denies dizziness Card Denies chest pain, Denies chest pain with activity, Denies syncope, Denies rapid heart rate, Denies pedal edema, Denies edema, Denies leg edema, Reports lightheadedness, Denies palpitations, Denies dyspnea, Denies dyspnea on exertion, Denies orthopnea and Reports other (Syncope x1) Resp Denies cough, Denies dyspnea and Denies dyspnea on exertion GI Denies hematochezia and Denies change in stool character Musc Denies abnormal gait, Denies muscle cramps, Denies muscle weakness, Denies numbness, Denies radiating pain into limb and Denies tingling Neuro Denies abnormal gait, Denies dizziness, Denies syncope, Denies numbness, Denies tingling and Denies weakness Endo Denies palpitations Physical Exam Vital Signs: Last Vital Signs Pulse 97 03/26/24 14:35 BP 122/64 03/26/24 14:35 BMI result Body Mass Index 27.1 Const General: cooperative, comfortable, no acute distress, alert, awake and well groomed Nutritional Appearance: average body habitus Orientation/consciousness: patient oriented x3 Limitations: wheelchair HEENT Head: Yes normocephalic and Yes atraumatic Neck Neck: Yes trachea midline, Yes supple and Yes no JVD Resp Effort & Inspection: normal respiratory effort Auscultation: clear to auscultation bilaterally Cardio Jugular venous distension: no JVD Palpation: normal PMI Rate: regular rate Rhythm: regular rhythm Heart sounds: S1 normal heart sound present, S2 normal heart sound present, no click, no gallops, no murmurs and no rubs GI Auscultation: normal bowel sounds Skin General skin exam: no rashes or lesions noted Neuro General: patient oriented x3 and other (Paraplegia) Office Procedures EKG Details: EKG shows normal sinus rhythm normal EKG [id number], Complete Assessment & Plan Assessment & Plan (1) Syncope: Code(s): R55 - Syncope and collapse Category: Medical Plan: One episode of syncope which clearly to me appears to be orthostatic in nature. Could be related to autonomic dysfunction related to his prior spine injury and/or related to diabetes. He does have intermittent episodes of lowish recorded blood pressure. He said he had only 1 episode of syncope. He does not think there are any cardiac issues. EKGs suddenly within normal limits. Will obtain echocardiogram to assess for any structural heart issues which are less likely. We discussed about orthostatic syncope and nature of orthostatic syncope. Advise in addition to increase his fluid intake to liberalize his salt intake. Advised to monitor blood pressure at home more closely. Orthostatic precautions were discussed. If he continues to have issues with orthostatic hypotension/syncope may benefit from therapy such as midodrine and/or Florinef therapy. Consider cutting down lisinopril dose. Continue management of diabetes aggressively. Will follow up in the clinic if need be. Thank you for allowing me to partake in his care Orders: Orders CA echo transthoracic complete Today Bala Lawler MD R55 - Syncope and collapse Medications: Changed From omeprazole 20 mg PO BID@0630,1630 30 caps 0RF To omeprazole 20 mg PO BID@0630,1630 PRN Yg Shirley MD Coding Level of Care Code New Pt Level 4 (49005) Diagnoses Syncope R55 CPT Codes EKG - CPT: 76540-Hroitvedovchalhyo, Complete ([id number])
== END 2024-03-26 15:53 | disposition home or self-care (01) ==
PROVIDERS: PCP Internal Medicine; Visit Provider Internal Medicine Cardiovascular Disease
DX: R55 Syncope and collapse (principal)
CPT/HCPCS: 93010; 99204

== ENCOUNTER → 2024-03-26 14:30 | Outpatient (BNVA) | payer MEDICARE, MEDICAID, SELFPAY | PROVIDERS: PCP Internal Medicine; Visit Provider Internal Medicine Cardiovascular Disease | DX: R55 Syncope and collapse (principal) | CPT/HCPCS: 93005; 99202 ==

== ENCOUNTER 2024-03-28 14:48 | Outpatient (AMB) | payer MEDICARE, MEDICAID, SELFPAY ==
--- NOTE | 2024-03-28 15:19 | A.OFFVIS_ITS ---
Vital Signs 03/28/24 15:27 BP 94/48 L Blood Pressure Location Lt brachial Position Sitting Pulse 98 Pulse Source Pulse Oximeter Intake Visit Reasons: 3 week appt pill antibiotic Allergies levofloxacin [From LEVAQUIN] Allergy (Intermediate, Verified 03/30/24 14:21) HIVES, SKIN RASH shellfish derived Allergy (Intermediate, Verified 03/30/24 14:21) itching throat HPI HPI 3 week appt pill antibiotic: Details: He has finished linezolid. He failed closure of wound. He has been on linezolid 600 mg bid and tolerated well. [facility] Medical History Osteomyelitis History of blood transfusion On anticoagulant therapy Iron deficiency anemia Decubitus ulcer of right ischial tuberosity region Osteomyelitis Right foot infection (Unknown) Diabetes Hx pulmonary embolism HTN (hypertension) Paraplegia Osteomyelitis of left foot Surgical History Hx of skin graft Hx of endoscopy Status post debridement Hx of colonoscopy Hx of foot surgery History of spinal surgery Family History Father Mother Brother No problems noted. Sister No problems noted. Sister No problems noted. Sister No problems noted. Son No problems noted. Son No problems noted. Son No problems noted. Son No problems noted. Daughter No problems noted. Daughter No problems noted. Social History Household Members: Family Household Members Other:: roommate Housing: House Are you a primary floor care technician to a significant other at home: No Do you presently have visiting nurse or other home services: Yes Alcohol intake: former Comment: Paraplegic Patient Tobacco Use Status: Never used Tobacco Second Hand Smoke Exposure: No Use of substances other than those prescribed or required for medical reasons: No Have you been hit, kicked, punched, or otherwise hurt by someone within the past year? If so, by whom?: No Do you feel safe in your current relationship?: Yes Advance Directives Date on File: 03/10/21 Do you have thoughts of harming others: None Do you have a plan to hurt others: No Plan Do you have the means to hurt others: No Recently lost weight without trying: No service: No Current occupational status: disabled Review of Systems Const All systems reviewed & are unremarkable except as noted in HPI and below Physical Exam Vital Signs: Last Vital Signs Pulse 98 03/28/24 15:27 BP 94/48 L 03/28/24 15:27 Const General: cooperative Orientation/consciousness: patient oriented x3 HEENT Head: Yes normal to inspection Mouth: Normal oral and palatal mucosa present Eyes General: appearance normal, both eyes and all related structures Pupils: Equal, round and reactive pupils present Resp Effort & Inspection: normal respiratory effort Cardio Rate: regular rate Rhythm: regular rhythm GI Palpation (GI): Soft to palpation and nontender General: Yes no CVA tenderness Back/Spine/Pelvis Back: no CVA tenderness Skin General skin exam: no rashes or lesions noted Neuro General: patient oriented x3 Cranial nerves: Yes CN's II-XII intact bilaterally and Yes Equal, round and reactive pupils present Extrem General: Yes normal to inspection Psych Appearance: grossly normal Assessment & Plan Assessment & Plan (1) Osteomyelitis: Comment: Not resolvable without ability to have closure. Code(s): M86.9 - Osteomyelitis, unspecified Category: Medical Plan: No further antibiotics at thist time. Coding Level of Care Code Est Pt Level 3 (87535) Diagnoses Osteomyelitis M86.9
[2024-03-28 15:27] VITALS: BP 94/48; PULSE 98
== END 2024-03-28 16:20 | disposition home or self-care (01) ==
LOC: HO.HID 14:48
PROVIDERS: PCP Internal Medicine; Visit Provider Internal Medicine
DX: M86.9 Osteomyelitis, unspecified (principal)
CPT/HCPCS: 99213

== ENCOUNTER → 2024-03-28 14:48 | Outpatient (BNVA) | payer MEDICARE, MEDICAID, SELFPAY | PROVIDERS: PCP Internal Medicine; Visit Provider Internal Medicine | DX: M86.9 Osteomyelitis, unspecified (principal); Z79.2 Long term (current) use of antibiotics | CPT/HCPCS: 99212 ==

== ENCOUNTER → 2024-04-18 10:37 | Outpatient (REF) | payer MEDICARE, MEDICAID, SELFPAY ==
--- NOTE | 2024-04-18 10:42 | CA_ITS ---
Transthoracic Echocardiogram Patient (Last, First, Middle): Israel Monroy L Gender: Male Date of : 1955 Age: 69 Procedure Date: 04/18/2024 Procedure Type: Transthoracic Echocardiogram Location: OP Height: 187.96 cm Weight: 95.71 kg BSA: 2.22 m2 Heart Rate: bpm BP: 124 / 60 mmHg Emergency Medical Technician Basic: Referring MD: Bala Lawler MD Senior Program Analyst: Bala Lawler MD Symptoms: R55 - Syncope and collapse Study Quality: Adequate ECG Rhythm: Sinus Conclusions: - 1. Normal LV ejection fraction of 60 65% with mild LVH with impaired relaxation filling pattern 2. Cardiac valvular Dopplers within normal limits 3. Normal RV systolic pressure 4. Upper limits of normal ascending aortic size 5. No gross pericardial effusion Findings Left Ventricle Normal left ventricular size and systolic function. There is mildly increased left ventricular wall thickness. The visually estimated ejection fraction is between 60-65%. Spectral Doppler is indicative of an impaired relaxation filling pattern. Right Ventricle The right ventricle was not well visualized. Atria The left atrium is normal in size. Interatrial shunt cannot be excluded. The right atrium was not well visualized. Aortic Valve Normal aortic valve structure and function. There is no aortic valve stenosis. There is no aortic valve regurgitation. Mitral Valve Likely normal mitral valve structure and function. There is trace mitral valve regurgitation. There is no mitral valve stenosis. Pulmonic Valve The pulmonic valve was not well visualized. Tricuspid Valve Likely normal tricuspid valve structure and function. There is mild tricuspid valve regurgitation. The right ventricular systolic pressure is normal. The right ventricular systolic pressure is 25 mmHg. Normal right atrial pressure. There is no evidence of pulmonary hypertension. Great Vessels All visible segments of the aorta are normal in size. The pulmonary artery was not well visualized. There is no evidence of plaque in the aorta. Venous The inferior vena cava is normal in size and collapses greater than 50% with inspiration. Pericardium/Pleural There is no evidence of pericardial effusion. Prior Study Comparison No prior study available for comparison. Measurements 2D Linear Measurements IVSd: 1.21 0.6-0.9/0.6-1.0 cm LVIDd: 4.12 3.9-5.3/4.2-5.9 cm LVIDd Index: 1.86 2.4-3.2/2.2-3.1 cm/m2 LVIDs: 2.99 2.0-3.6 cm LVPWd: 1.23 0.7-1.1 cm Ao Root: 3.70 2.1-3.5 cm LA Diam: 2.80 2.7-3.8/3.0-4.0 cm LAIDs Index: 1.26 1.5-2.3 cm/m2 LV Mass: 220.86 67-162/88-224 g LV Mass Index: 99.49 43-95/49-115 g/m2 LVOT Diam: 2.30 3.0+(-)1.3 cm 2D Systolic Function EF 4C: 61.80 >55% EF 2C: 56.30 >55% EF BiP: 60.00 >55% Mitral Valve MV Pk E: 0.57 MV PK A: 0.66 MV Decel Time: 155.00 E/A: 0.90 E'Lateral: 8.05 E'Medial: 5.44 E/E' Med: 10.50 E/E' Lat: 7.10 PHT: 45.00 MVA PHT: 4.89 Decel [place]: 3.68 Aortic Valve AoV Pk Jam: 1.15 AoV Mn Jam: 0.74 AoV VTI: 0.27 AoV Pk Grad: 5.00 Aov Mn Grad: 3.00 ISELA Cont.VTI: 2.75 LVOT LVOT Pk Jam: 0.89 LVOT Mn Jam: 0.58 LVOT VTI: 0.18 LVOT Pk Grad: 3.00 LVOT Mn Grad: 2.00 LVOT Diam: 2.30 LVOT Area: 4.15 Diastolic Function MV Pk E: 0.57 MV Pk A: 0.66 E/A: 0.90 E'Medial: 5.44 E/E' Med: 10.50 E' Laterial: 8.05 E/E' Lat: 7.10 Right Ventricle TAPSE (mm): 26.00 TVS' Jam: 12.00 Tricuspid Valve TR Pk Jam: 2.34 TR Pk Grad: 22.00 RA Press: 3.00 RVSP: 25.00 Great Vessels Aorta Ao Root-2D: 3.70 2.0-3.7 cm Ao Asc: 3.60 2.1-3.4 cm Pulmonary Valve PV Pk Jam: 1.07 Peak PV Grad: 5.00 Updated in Other Vendor System with Status of Final Bala Lawler MD electronically signed on 04/18/2024 2:35:00 PM with status of Final
--- OUTSIDE RECORDS SUMMARY | 2024-04-24 17:43 | XMS_ITS | Clinical Summary ---
Author Organization Unknown Care Team Providers Care Size Marker Name Role Phone KRUPA JONES, OMAIRA Unavailable Unavailab le [facility] [employer] STORE MANAGER, ADELINA Unavailable Unavailsalinas CABRAL RN, CHANELL Unavailable Unavailable [facility] [employer] STORE MANAGER, BRAIN Unavailable Unavailable [facility] [employer] MANAGER, KARL Unavailable Piper vailable Payers Payer Name Policy Type Policy Number Effective Date Expira tion Date MEDICARE.NGS.PDGM [id number] Problems Condition Name Condition Details Condition Category Status Onset Date Resolution Date Last Treatment Date Treating Clinician Comments DISRUPTION OF EXTERNAL OPERATION (SURGICAL) WOUND, NEC, SUBS Active 06-03 00:00: 00 PRESSURE ULCER OF LEFT HIP, STAGE 3 Active 06-03 00:00: 00 TYPE 2 DIABETES MELLITUS WITH OTHER SPECIFIED COMPLICATION Active 06-03 00:00: 00 OTHER ACUTE OSTEOMYELITI S, LEFT FEMUR Active 06-03 00:00: 00 PARAPLEGIA, COMPLETE Active 2022-05 00:00: 00 TYPE 2 DIABETES W DIABETIC PERIPHERAL ANGIOPATH W/O GANGRENE Active 05-16 00:00: 00 ESSENTIAL (PRIMARY) HYPERTENSION Active 05-16 00:00: 00 HISTORY OF FALLING Active 05-16 00:00: 00 GROUP HOME (CURRENT) USE OF INSULIN Active 05-16 00:00: 00 GROUP HOME (CURRENT) USE OF ANTICOAGULAN TS Active 05-16 00:00: 00 PERSONAL HISTORY OF PULMONARY EMBOLISM Active 05-16 00:00: 00 PERSONAL HISTORY OF OTHER VENOUS THROMBOSIS AND EMBOLISM Active 05-16 00:00: 00 Allergies, Adverse Reactions, Alerts Allergy Name Allergy Type Status Severity Reaction(s) Onset Date Inactive Date Treating Clinician Comments NO KNOWN ALLERGIES Propensity to adverse reactions Active 2022-05 12:05: 21 Medications Ordered Medication Name Filled Medication Name Start Date Stop Date Current Medication? Ordering Clinician Indication Dosage Frequency Signature (SIG) Comments Components Eliquis 5 mg tablet 2022-05 00:00: 00 Yes [id number] CLOT 1 tablet TWICE DAILY 1 tablet TWICE DAILY (route: oral) Med Classific ation: Hematolog ical Agents FeroSul 325 mg (65 mg iron) tablet 2022-05 00:00: 00 Yes [id number] SUPPLMENT 1 tablet TWICE DAILY 1 tablet TWICE DAILY (route: oral) Med Classific ation: Electroly te Balance-N utritiona l Products gabapentin 800 mg tablet 2022-05 00:00: 00 Yes [id number] PAIN 1 tablet TWICE DAILY 1 tablet TWICE DAILY (route: oral) Med Classific ation: Central Nervous System Agents ibuprofen 800 mg tablet 2022-05 00:00: 00 Yes [id number] PAIN 1 tablet 3 TIMES DAILY 1 tablet 3 TIMES DAILY (route: oral) Med Classific ation: Analgesic , Anti-infl ammatory or Antipyret ic Lantus Solostar U-100 Insulin 100 unit/mL (3 mL) subcutaneou s pen 2022-05 00:00: 00 Yes [id number] DM2 24 unit SUBCUTANEO USLY ONCE DAILY 24 unit SUBCUTANEO USLY ONCE DAILY (route: subcutaneo us) Med Classific ation: Endocrine lisinopril 5 mg tablet 2022-05 00:00: 00 Yes [id number] HTN 1 tablet EVERY DAY 1 tablet EVERY DAY (route: oral) Med Classific ation: Cardiovas cular Therapy Agents prednisone 20 mg tablet 06-05 00:00: 00 06-09 23:59 :00 No [id number] RSV 2 tablet DAILY 2 tablet DAILY (route: oral) Med Classific ation: Endocrine albuterol sulfate HFA 90 mcg/actuati on aerosol inhaler 06-05 00:00: 00 Yes [id number] SOB 1 puff EVERY 4 HOURS 1 puff EVERY 4 HOURS (route: inhalation ) Med Classific ation: Respirato ry Therapy Agents Vital Signs Vital Name Observation Time Observation Value Commen ts Temperature 2023-07-22 11:19:00.000 98.2 [degF] Temperature 2023-07-08 12:12:00.000 97.7 [degF] Temperature 2023-07-01 18:40:00.000 97 [degF] Temperature 2023-06-25 05:49:00.000 98.1 [degF] Temperature 2023-06-17 12:44:00.000 98.2 [degF] Temperature 2023-06-10 12:00:00.000 98 [degF] Temperature 2023-06-08 12:06:00.000 97.6 [degF] Pulse 2023-07-22 11:19:00.000 82 /min Pulse 2023-07-08 12:12:00.000 67 /min Pulse 2023-07-01 18:40:00.000 90 /min Pulse 2023-06-25 05:49:00.000 74 /min Pulse 2023-06-17 12:44:00.000 84 /min Pulse 2023-06-10 12:00:00.000 74 /min Pulse 2023-06-08 12:06:00.000 76 /min O2 Saturation (%) 2023-07-22 11:19:00.000 100 % O2 Saturation (%) 2023-07-08 12:12:00.000 97 % O2 Saturation (%) 2023-07-01 18:40:00.000 96 % O2 Saturation (%) 2023-06-25 05:50:00.000 100 % O2 Saturation (%) 2023-06-17 12:45:00.000 99 % O2 Saturation (%) 2023-06-10 12:00:00.000 97 % O2 Saturation (%) 2023-06-08 12:06:00.000 97 % Respirations 2023-07-22 11:19:00.000 18 /min Respirations 2023-07-08 12:12:00.000 17 /min Respirations 2023-07-01 18:40:00.000 16 /min Respirations 2023-06-25 05:49:00.000 18 /min Respirations 2023-06-17 12:44:00.000 18 /min Respirations 2023-06-10 12:00:00.000 16 /min Respirations 2023-06-08 12:06:00.000 16 /min Systolic Blood Pressure 2023-07-22 11:19:00.000 110 mm [Hg] Systolic Blood Pressure 2023-07-08 12:12:00.000 130 mm [Hg] Systolic Blood Pressure 2023-07-01 18:40:00.000 120 mm [Hg] Systolic Blood Pressure 2023-06-25 05:49:00.000 124 mm [Hg] Systolic Blood Pressure 2023-06-17 12:44:00.000 100 mm [Hg] Systolic Blood Pressure 2023-06-10 12:00:00.000 122 mm [Hg] Systolic Blood Pressure 2023-06-08 12:06:00.000 122 mm [Hg] Diastolic Blood Pressure 2023-07-22 11:19:00.000 65 mm [Hg] Diastolic Blood Pressure 2023-07-08 12:12:00.000 78 mm [Hg] Diastolic Blood Pressure 2023-07-01 18:40:00.000 70 mm [Hg] Diastolic Blood Pressure 2023-06-25 05:49:00.000 70 mm [Hg] Diastolic Blood Pressure 2023-06-17 12:44:00.000 60 mm [Hg] Diastolic Blood Pressure 2023-06-10 12:00:00.000 62 mm [Hg] Diastolic Blood Pressure 2023-06-08 12:06:00.000 68 mm [Hg] Plan of Treatment Planned Activity Planned Date Details Comments Future Scheduled Test MEDICATION MANAGEMENT; REGISTERED NURSE/LICENSED PRACTICAL NURSE TO REVIEW MEDICATIONS FOR INTERACTIONS, EFFECTIVENESS OF DRUG THERAPY, AND SIGNS/SYMPTOMS OF ADVERSE REACTIONS. MAY INSTRUCT AND REINFORCE MEDICATION TEACHING RELATED TO THE USE OF MEDICATIONS, DOSAGE, FREQUENCY, PURPOSE, SIDE EFFECTS, AND TO REPORT COMPLICATIONS. [code = MEDICATION MANAGEMENT; REGISTERED NURSE/LICENSED PRACTICAL NURSE TO REVIEW MEDICATIONS FOR INTERACTIONS, EFFECTIVENESS OF DRUG THERAPY, AND SIGNS/SYMPTOMS OF ADVERSE REACTIONS. MAY INSTRUCT AND REINFORCE MEDICATION TEACHING RELATED TO THE USE OF MEDICATIONS, DOSAGE, FREQUENCY, PURPOSE, SIDE EFFECTS, AND TO REPORT COMPLICATIONS. ] Future Scheduled Test RESPIRATOR Y SYSTEM MANAGEMENT; REGISTERED NURSE TO ASSESS AND TEACH/LICENSED PRACTICAL NURSE TO OBSERVE AND TEACH RELATED TO ALTERED RESPIRATORY STATUS TO MINIMIZE COMPLICATIONS AND REDUCE HOSPITALIZATION. [code = RESPIRATORY SYSTEM MANAGEMENT; REGISTERED NURSE TO ASSESS AND TEACH/LICENSED PRACTICAL NURSE TO OBSERVE AND TEACH RELATED TO ALTERED RESPIRATORY STATUS TO MINIMIZE COMPLICATIONS AND REDUCE HOSPITALIZATION. ] Future Scheduled Test FALL REDUC TION MANAGEMENT; REGISTERED NURSE TO ASSESS AND TEACH/LICENSED PRACTICAL NURSE TO OBSERVE AND TEACH ON EDUCATION AND INTERVENTION TO IDENTIFY FALL RISK FACTORS SUCH MEDICATIONS THAT MAY CAUSE DIZZINESS, CHRONIC DISEASES, PSYCHOLOGICAL FACTORS, AND EMPOWER/EDUCATE PATIENT/CAREGIVER TO MINIMIZE FALL RISK. [code = FALL REDUCTION MANAGEMENT; REGISTERED NURSE TO ASSESS AND TEACH/LICENSED PRACTICAL NURSE TO OBSERVE AND TEACH ON EDUCATION AND INTERVENTION TO IDENTIFY FALL RISK FACTORS SUCH MEDICATIONS THAT MAY CAUSE DIZZINESS, CHRONIC DISEASES, PSYCHOLOGICAL FACTORS, AND EMPOWER/EDUCATE PATIENT/CAREGIVER TO MINIMIZE FALL RISK.] Future Scheduled Test GENITOURIN KAL MANAGEMENT; REGISTERED NURSE TO ASSESS AND TEACH/LICENSED PRACTICAL NURSE TO OBSERVE AND TEACH RELATED TO ALTERED GENITOURINARY STATUS TO MINIMIZE COMPLICATIONS AND REDUCE HOSPITALIZATION. [code = GENITOURINARY MANAGEMENT; REGISTERED NURSE TO ASSESS AND TEACH/LICENSED PRACTICAL NURSE TO OBSERVE AND TEACH RELATED TO ALTERED GENITOURINARY STATUS TO MINIMIZE COMPLICATIONS AND REDUCE HOSPITALIZATION. ] Future Scheduled Test INDWELLING URINARY CATHETER MANAGEMENT; REGISTERED NURSE/LICENSED PRACTICAL NURSE TO INSTRUCT PATIENT / CAREGIVER ON INDWELLING URINARY CATHETER MANAGEMENT INCLUDING CARE OF CATHETER, SIGN AND SYMPTOMS OF COMPLICATIONS, PERINEAL CARE, TUBE AND BAG PLACEMENT, PREVENTION OF INFECTION AND SKIN BREAKDOWN. PATIENT INDEPENDENT WITH CHANGING CATHETER EVERY 3 WEEKS [code = INDWELLING URINARY CATHETER MANAGEMENT; REGISTERED NURSE/LICENSED PRACTICAL NURSE TO INSTRUCT PATIENT / CAREGIVER ON INDWELLING URINARY CATHETER MANAGEMENT INCLUDING CARE OF CATHETER, SIGN AND SYMPTOMS OF COMPLICATIONS, PERINEAL CARE, TUBE AND BAG PLACEMENT, PREVENTION OF INFECTION AND SKIN BREAKDOWN. PATIENT INDEPENDENT WITH CHANGING CATHETER EVERY 3 WEEKS] Future Scheduled Test URINARY TR ACT INFECTION MANAGEMENT; REGISTERED NURSELICENSED PRACTICAL NURSE TO PROVIDE SKILLED TEACHING AND SELF- CARE MANAGEMENT RELATED TO UTI TO MINIMIZE COMPLICATIONS AND REDUCE THE RISK OF HOSPITALIZATION. [code = URINARY TRACT INFECTION MANAGEMENT; REGISTERED NURSELICENSED PRACTICAL NURSE TO PROVIDE SKILLED TEACHING AND SELF- CARE MANAGEMENT RELATED TO UTI TO MINIMIZE COMPLICATIONS AND REDUCE THE RISK OF HOSPITALIZATION.] Future Scheduled Test DIABETES M ANAGEMENT; REGISTERED NURSE TO ASSESS AND TEACH/LICENSED PRACTICAL NURSE TO OBSERVE AND TEACH INSTRUCTIONS OF DIABETIC CARE TO INCLUDE: DIET DIABETIC SKIN CARE, SIGNS AND SYMPTOMS OF HYPO/HYPERGLYCEMIA, PROPER ADMINISTRATION OF DIABETIC MEDICATION. REGISTERED NURSE/LICENSED PRACTICAL NURSE TO INSTRUCT ON DIABETIC FOOT CARE AND MONITOR FOR SKIN LESIONS ON LOWER EXTREMITIES. BLOOD GLUCOSE TESTING DAILY. REGISTERED NURSE TO ASSESS AND TEACH/LICENSED PRACTICAL NURSE TO OBSERVE AND TEACH PATIENT/CAREGIVER ABILITY TO PERFORM AND RECORD BLOOD GLUCOSE TESTING ORDERED AND TO REPORT ABNORMAL FINDINGS TO PHYSICIAN. REGISTERED NURSE/LICENSED PRACTICAL NURSE MAY PERFORM BLOOD GLUCOSE TEST NEEDED. REGISTERED NURSE/LICENSED PRACTICAL NURSE TO REPORT TO PHYSICIAN BLOOD GLUCOSE READINGS GREATER THAN 350 OR LESS THAN 70. REGISTERED NURSE AND LICENSED PRACTICAL NURSE TO INSTRUCT PATIENT ON IMPORTANCE OF HGBA1C MONITORING, KIDNEY FUNCTION TEST, EYE AND FOOT EXAMS. [code = DIABETES MANAGEMENT; REGISTERED NURSE TO ASSESS AND TEACH/LICENSED PRACTICAL NURSE TO OBSERVE AND TEACH INSTRUCTIONS OF DIABETIC CARE TO INCLUDE: DIET DIABETIC SKIN CARE, SIGNS AND SYMPTOMS OF HYPO/HYPERGLYCEMIA, PROPER ADMINISTRATION OF DIABETIC MEDICATION. REGISTERED NURSE/LICENSED PRACTICAL NURSE TO INSTRUCT ON DIABETIC FOOT CARE AND MONITOR FOR SKIN LESIONS ON LOWER EXTREMITIES. BLOOD GLUCOSE TESTING DAILY. REGISTERED NURSE TO ASSESS AND TEACH/LICENSED PRACTICAL NURSE TO OBSERVE AND TEACH PATIENT/CAREGIVER ABILITY TO PERFORM AND RECORD BLOOD GLUCOSE TESTING ORDERED AND TO REPORT ABNORMAL FINDINGS TO PHYSICIAN. REGISTERED NURSE/LICENSED PRACTICAL NURSE MAY PERFORM BLOOD GLUCOSE TEST NEEDED. REGISTERED NURSE/LICENSED PRACTICAL NURSE TO REPORT TO PHYSICIAN BLOOD GLUCOSE READINGS GREATER THAN 350 OR LESS THAN 70. REGISTERED NURSE AND LICENSED PRACTICAL NURSE TO INSTRUCT PATIENT ON IMPORTANCE OF HGBA1C MONITORING, KIDNEY FUNCTION TEST, EYE AND FOOT EXAMS. ] Future Scheduled Test RN TO OBSE RVE, ASSESS, EVALUATE, AND DEVELOP AN INDIVIDUALIZED PLAN OF CARE. AGENCY MAY ACCEPT ORDERS FROM CONSULTING PHYSICIANS. REGISTERED NURSETO OBSERVE AND ASSESS/LICENSED PRACTICAL NURSE TO OBSERVE FOR RISK FOR FALLS AND INSTRUCT IN FALL PREVENTION, HOME SAFETY, MEDICATION MANAGEMENT, INFECTION PREVENTION, AND NUTRITION MANAGEMENT. REGISTERED NURSE/LICENSED PRACTICAL NURSE MAY PERFORM O2 SATURATION LEVEL ON ADMISSION AND PRN FOR RN TO ASSESS/MUSIC STORE MANAGER TO OBSERVE PATIENT, WITH NOTIFICATION TO THE PHYSICIAN IF SATURATION IS 90% IN THE ABSENCE OF MORE SPECIFIC PARAMETERS FROM THE PHYSICIAN. AGENCY MAY PERFORM A RESUMPTION OF CARE VISIT FOLLOWING ANY HOSPITAL ADMISSION. REGISTERED NURSE/LICENSED PRACTICAL NURSE TO MONITOR CO-MORBID CONDITIONS LISTED ON THE PLAN OF CARE AND ANY NEW CONDITIONS THAT PRESENT THEMSELVES DURING THIS EPISODE TO IDENTIFY CHANGES AND INTERVENE TO MINIMIZE COMPLICATIONS. [code = RN TO OBSERVE, ASSESS, EVALUATE, AND DEVELOP AN INDIVIDUALIZED PLAN OF CARE. AGENCY MAY ACCEPT ORDERS FROM CONSULTING PHYSICIANS. REGISTERED NURSETO OBSERVE AND ASSESS/LICENSED PRACTICAL NURSE TO OBSERVE FOR RISK FOR FALLS AND INSTRUCT IN FALL PREVENTION, HOME SAFETY, MEDICATION MANAGEMENT, INFECTION PREVENTION, AND NUTRITION MANAGEMENT. REGISTERED NURSE/LICENSED PRACTICAL NURSE MAY PERFORM O2 SATURATION LEVEL ON ADMISSION AND PRN FOR RN TO ASSESS/MUSIC STORE MANAGER TO OBSERVE PATIENT, WITH NOTIFICATION TO THE PHYSICIAN IF SATURATION IS 90% IN THE ABSENCE OF MORE SPECIFIC PARAMETERS FROM THE PHYSICIAN. AGENCY MAY PERFORM A RESUMPTION OF CARE VISIT FOLLOWING ANY HOSPITAL ADMISSION. REGISTERED NURSE/LICENSED PRACTICAL NURSE TO MONITOR CO-MORBID CONDITIONS LISTED ON THE PLAN OF CARE AND ANY NEW CONDITIONS THAT PRESENT THEMSELVES DURING THIS EPISODE TO IDENTIFY CHANGES AND INTERVENE TO MINIMIZE COMPLICATIONS.] Future Scheduled Test PAIN MANAG EMENT; REGISTERED NURSE TO ASSESS AND TEACH/LICENSED PRACTICAL NURSE TO OBSERVE AND TEACH AND PROVIDE EDUCATION ON PAIN MANAGEMENT TECHNIQUES. [code = PAIN MANAGEMENT; REGISTERED NURSE TO ASSESS AND TEACH/LICENSED PRACTICAL NURSE TO OBSERVE AND TEACH AND PROVIDE EDUCATION ON PAIN MANAGEMENT TECHNIQUES.] Future Scheduled Test REGISTERED NURSE/LICENSED PRACTICAL NURSE TO PERFORM/TEACH PATIENT/CAREGIVER WOUND CARE: NON HEALING SURGICAL WOUND TO LEFT ISCHIUIM, CLEANSE WITH DAIKENS SOLUTION, RINSE WELL WITH NORMAL SALINE, APPLY CUTIMED SORBITAL TO WOUND BED, COVER WITH 4X4 STERILE GAUZE AND SECURE WITH MEDIFIX TAPE. DAILY AND PRN FOR SOILING OR DISLODGEMENT. STAGE III TO LEFT TROCANTER: CLEANSE WITH NORMAL SALINE PAT DRY WITH GAUZE, APPLY CALCIUM ALGINATE TO WOUND BED, COVER WITH LARGE FOAM DRESSING, SECURE WITH MEDIFIX TAPE APPLY DAILY AND PRN FOR SOILING OR DISLODGEMENT WOUND TO PERIANAL AREA: APPLY ZINC OXIDE CREAM DAILY AND PRN CAREGIVER MAY PROVIDE WOUND CARE ON NON SKILLED NURSE VISIT DAYS [code = REGISTERED NURSE/LICENSED PRACTICAL NURSE TO PERFORM/TEACH PATIENT/CAREGIVER WOUND CARE: NON HEALING SURGICAL WOUND TO LEFT ISCHIUIM, CLEANSE WITH DAIKENS SOLUTION, RINSE WELL WITH NORMAL SALINE, APPLY CUTIMED SORBITAL TO WOUND BED, COVER WITH 4X4 STERILE GAUZE AND SECURE WITH MEDIFIX TAPE. DAILY AND PRN FOR SOILING OR DISLODGEMENT. STAGE III TO LEFT TROCANTER: CLEANSE WITH NORMAL SALINE PAT DRY WITH GAUZE, APPLY CALCIUM ALGINATE TO WOUND BED, COVER WITH LARGE FOAM DRESSING, SECURE WITH MEDIFIX TAPE APPLY DAILY AND PRN FOR SOILING OR DISLODGEMENT WOUND TO PERIANAL AREA: APPLY ZINC OXIDE CREAM DAILY AND PRN CAREGIVER MAY PROVIDE WOUND CARE ON NON SKILLED NURSE VISIT DAYS] Future Scheduled Test PRN VISITS ; NUMBER OF REGISTERED NURSE/LICENSED PRACTICALPRN VISITS: 2 REGISTERED NURSE/LICENSED PRACTICAL NURSE FOR THE FOLLOWING REASONS: DRESSING DISLODGEMENT,S/S INFECTION.WOUND ASSESSMENT,WOUND CARE [code = PRN VISITS; NUMBER OF REGISTERED NURSE/LICENSED PRACTICALPRN VISITS: 2 REGISTERED NURSE/LICENSED PRACTICAL NURSE FOR THE FOLLOWING REASONS: DRESSING DISLODGEMENT,S/S INFECTION.WOUND ASSESSMENT,WOUND CARE] Future Scheduled Test RISK FOR H OSPITALIZATION; REGISTERED NURSE TO ASSESS /TEACH, LICENSED PRACTICAL NURSE TO OBSERVE/TEACH PATIENT/CAREGIVER ON RISK FOR HOSPITALIZATION/EMERGENCY ROOM VISITS, TEACH SIGNS AND SYMPTOMS THAT PUT PATIENT AT RISK, WHEN TO NOTIFY NURSE/PHYSICIAN OF COMPLICATIONS/DECLINE, AND WHEN TO CALL 911. [code = RISK FOR HOSPITALIZATION; REGISTERED NURSE TO ASSESS /TEACH, LICENSED PRACTICAL NURSE TO OBSERVE/TEACH PATIENT/CAREGIVER ON RISK FOR HOSPITALIZATION/EMERGENCY ROOM VISITS, TEACH SIGNS AND SYMPTOMS THAT PUT PATIENT AT RISK, WHEN TO NOTIFY NURSE/PHYSICIAN OF COMPLICATIONS/DECLINE, AND WHEN TO CALL 911.] Future Scheduled Test DIABETES M ONITORING REGISTERED NURSE/LICENSED PRACTICAL NURSE TO MONITOR BLOOD SUGAR LOG FOR BLOOD SUGAR READINGS THAT ARE BEING CHECKED BY PATIENT TIMES A DAY. PATIENT THERAPEUTIC BLOOD SUGAR PARAMETERS ARE 70-350 REPORT BLOOD SUGARS OUT OF RANGE TO PHYSICIAN. NURSE MAY PERFORM FINGER STICK BLOOD GLUCOSE NEEDED FOR SIGNS AND SYMPTOMS OF HYPO AND HYPERGLYCEMIA. REGISTERED NURSE/LICENSED PRACTICAL NURSE TO MONITOR ADHERENCE OF PATIENT/CAREGIVER PERFORMING DIABETIC FOOT CARE AND MAY PERFORM DIABETIC FOOT CARE PRN. REGISTERED NURSE/LICENSED PRACTICAL NURSE TO MONITOR FOR ADHERENCE TO DIABETIC SELF-CARE AND MANAGEMENT INCLUDING MEDICATIONS. [code = DIABETES MONITORING REGISTERED NURSE/LICENSED PRACTICAL NURSE TO MONITOR BLOOD SUGAR LOG FOR BLOOD SUGAR READINGS THAT ARE BEING CHECKED BY PATIENT TIMES A DAY. PATIENT THERAPEUTIC BLOOD SUGAR PARAMETERS ARE 70-350 REPORT BLOOD SUGARS OUT OF RANGE TO PHYSICIAN. NURSE MAY PERFORM FINGER STICK BLOOD GLUCOSE NEEDED FOR SIGNS AND SYMPTOMS OF HYPO AND HYPERGLYCEMIA. REGISTERED NURSE/LICENSED PRACTICAL NURSE TO MONITOR ADHERENCE OF PATIENT/CAREGIVER PERFORMING DIABETIC FOOT CARE AND MAY PERFORM DIABETIC FOOT CARE PRN. REGISTERED NURSE/LICENSED PRACTICAL NURSE TO MONITOR FOR ADHERENCE TO DIABETIC SELF-CARE AND MANAGEMENT INCLUDING MEDICATIONS.] Goal 2023-06-03 Patient Goal - T O GET ASSISTANCE ORDERING SUPPLIES Goal 2023-08-03 Patient Goal - T O GET ASSISTANCE ORDERING SUPPLIES Goal Provider Goal - PATIENT/CAREGIVER TO VERBALIZE, AND CONSISTENTLY DEMONSTRATE EFFECTIVE, SAFE MANAGEMENT OF MEDICATION INCLUDING KNOWLEDGE OF EFFECTIVENESS, POTENTIAL SIDE EFFECTS AND DRUG REACTIONS AND WHEN TO CONTACT THE APPROPRIATE CARE PROVIDER. PATIENT/CAREGIVER WILL BE ABLE TO VERBALIZE UNDERSTANDING OF MEDICATION REGIMEN AND ACCURATELY TAKE MEDICATIONS PRESCRIBED WITHOUT ADVERSE EFFECTS BY EOE Goal Provider Goal - PATIENT / CAREGIVER WILL VERBALIZE/DEMONSTRATE UNDERSTANDING OF MEASURES TO MANAGE ALTERED RESPIRATORY STATUS BY END OF EPISODE. Goal Provider Goal - PATIENT/CAREGIVER ABLE TO IDENTIFY FALL RISK FACTORS AND IMPLEMENT STRATEGIES TO MINIMIZE FALL RISK. PATIENT/CAREGIVER WILL VERBALIZE/DEMONSTRATE AN ABILITY TO ADHERE TO FALL REDUCTION SELF MANAGEMENT AND LIFE-STYLE CHANGES AT DISCHARGE. PERSONAL GOAL(S) STATED BY PATIENT/CAREGIVER WILL BE MET BY 08/02 Goal Provider Goal - PATIENT / CAREGIVER WILL VERBALIZE/DEMONSTRATE UNDERSTANDING OF MEASURES TO MANAGE ALTERED GENITOURINARY STATUS BY END OF EPISODE. Goal Provider Goal - PATIENT/CAREGIVER WILL VERBALIZE/DEMONSTRATE UNDERSTANDING OF CARE AND MANAGEMENT OF INDWELLING CATHETER BY EOE. Goal Provider Goal - PATIENT/CAREGIVER WILL VERBALIZE/DEMONSTRATE UNDERSTANDING OF CARE AND MANAGEMENT OF URINARY TRACT INFECTION BY EOE Goal Provider Goal - PATIENT / CAREGIVER WILL VERBALIZE / DEMONSTRATE AN ABILITY TO ADHERE TO SELF-MANAGEMENT OF DIABETES MANAGEMENT BY EOE Goal Provider Goal - A PLAN OF CARE WILL BE ESTABLISHED THAT MEETS THE PATIENTS NEEDS. PATIENT WILL DEMONSTRATE OXYGEN SATURATION WITHIN NORMAL LIMITS OR PATIENTS OPTIMAL LEVEL ESTABLISHED BY THE PHYSICIAN THROUGHOUT CARE. CHANGES TO CO-MORBID CONDITIONS AND ANY NEW CONDITIONS WILL BE IDENTIFIED AND REPORTED TO THE PHYSICIAN. Goal Provider Goal - PATIENT / CAREGIVER WILL VERBALIZE / DEMONSTRATE UNDERSTANDING OF PAIN CONTROL MEASURES BY 08/02 Goal Provider Goal - PT GOAL: PATIENT / CAREGIVER WILL VERBALIZE / DEMONSTRATE ABILITY TO PERFORM WOUND CARE. WOUND STATUS WILL IMPROVE EVIDENCED BY A DECREASE IN SIZE, DRAINAGE, ABSENCE OF INFECTION, AND DECREASED PAIN BY END OF EPISODE. Goal Provider Goal - NA Goal Provider Goal - PATIENT/CAREGIVER WILL VERBALIZE UNDERSTANDING OF SIGNS AND SYMPTOMS THAT PUT THE PATIENT AT RISK FOR HOSPITALIZATION /EMERGENCY ROOM VISITS, WHEN TO NOTIFY NURSE/PHYSICIAN OF COMPLICATIONS/DECLINE AND WHEN TO CALL 911. Goal Provider Goal - BLOOD SUGARS WILL REMAIN WITHIN ESTABLISHED RANGES AND DIABETES CONTROLLED THROUGHOUT EPISODE. Reason for Visit MODERATE ASSIST WITH TRANSFER/AMBULATION/ADLS Encounters Start Date/Time End Date/Time Encounter Type Admission Type Attending [facility] Care Department Encounter ID Discharge Date Discharge Status Discharge Condition Discharge Reason Percent Goals Met 2023-04-06 00:00:00 2023-08-03 00:00:00 [facility] J[facility] CHANELL [facility] [id number] 2023-08-03 00:00:00 DISCHARGE TO HOME OR SELF CARE MODERATE ASSIST WITH TRANSFER/A MBULATION/ ADLS HH ONLY - OUT PATIENT .00
== END ==
LOC: HO.CARD 10:37
PROVIDERS: PCP Internal Medicine; Visit Provider Internal Medicine Cardiovascular Disease
DX: R55 Syncope and collapse (principal)
CPT/HCPCS: 93306

== ENCOUNTER → 2024-04-18 10:42 | Outpatient (BNV) | payer MEDICARE, MEDICAID, SELFPAY | PROVIDERS: PCP Internal Medicine; Visit Provider Internal Medicine Cardiovascular Disease | DX: I36.1 Nonrheumatic tricuspid (valve) insufficiency (principal) | CPT/HCPCS: 93306 ==

== ENCOUNTER 2024-08-17 11:14 | Outpatient (REF) | payer MEDICARE, MEDICAID, SELFPAY ==
--- OUTSIDE RECORDS SUMMARY | 2024-08-17 13:10 | XMS_ITS | Encounter Summary ---
Author Organization [employer] Address [address] [place] [address] [address] [place] [address] Care Team Providers Care Pallet Rectifier Name Role Phone Jose Baker MD Primary Care Provide r August Unavailable Reason for Visit * Reason Comments Med Refill Encounter Details Date Type Department Care Team ([facility] Contact Info) Description 03/30/2023 Refill [facility] [address], [place] [phone] Jose Baker MD [address], [place] [phone] Hip osteomyelitis, left (CMS/HCC) Social History Tobacco Use Types Packs/Day Years Used Date Smoking Tobacco: Never Passive Smoke Exposure: Never Smokeless Tobacco: Never Depression Answer Date Recorded Patient Health Questionnaire-9 Score 0 02/10/2023 Housing Stability Answer Date Recorded What is your housing situation today? I have he alma 03/07/[address] you li ve. Do you have problems with any of the following? None of the above 03/07/2023 Food Insecurity Answer Date Recorded Within the past 12 months, y ou worried that your food would run out before you got money to buy more: Never True 03/07/2023 Within the past 12 months,th e food you bought just didn't last and you didn't have enough money to get more: Never True Transportation Answer Date Recorded In the past 12 months, has l ack of transportation kept you from medical appts, meetings, work or from getting things needed for daily living? No 03/07/2023 Utilities Answer Date Recorded In the past 12 months, has t he electric, gas, oil or water company threatened to shut off services in your home? No 03/07/2023 Depression Answer Date Recorded Patient Health Questionnaire-2 Score 0 02/10/2023 Sex and Gender Information Value Date Recorded Sex Assigned at Male 03/15/2022 10:20 AM EDT Legal Sex Male 10:20 AM EDT Gender Identity Male 03/15/2022 10:20 AM EDT Sexual Orientation Choose not to disclose 2021 10:20 AM EDT documented as of this encounter Plan of Treatment Upcoming Encounters Date Type Department Care Team (Late st Contact Info) Description 10/04/2024 1:00 PM EDT Office Visit [facility] [address] [place] [address] Jose Baker MD [address] [place] [address] documented as of this encounter Visit Diagnoses Diagnosis Hip osteomyelitis, left (CMS/HCC) Unspecified osteomyelitis, pelvic region and thigh documented in this encounter Additional Health Concerns Assessment Noted Time PHQ-9 Depression Total Score: 0 02/11/20 23 1:23 PM EDT documented as of this encounter Care Teams Pallet Rectifier Relationship Specialty Start Date End Date Jose Baker MD [address] [place] [id number] PCP - General Internal Medicine 03/22/19August [address] [place] [address] [address] [place] [address] Gastroenter[facility] documented as of this encounter
--- OUTSIDE RECORDS SUMMARY | 2024-08-17 13:10 | XMS_ITS | Encounter Summary ---
Author Organization [employer] Address [address] [place] [address] 7t [place] [address] Care Team Providers Care Levers Lace Machine Operator Name Role Phone Jose Baker MD Primary Care Provide r August Reason for Visit * Reason Onset Date Comments Call Back Request 06/14/2024 Encounter Details Date Type Department Care Team ([facility] st Contact Info) Description 06/14/2024 Telephone [facility] MEDICINE [address] [place], [place] [phone] Jose Baker MD 230 [place] [address] Call Back Request Social History Tobacco Use Types Packs/Day Years Used Date Smoking Tobacco: Never Passive Smoke Exposure: Never Smokeless Tobacco: Never Alcohol Use Standard Drinks/Week Comments Never 0 (1 standard drink = 0.6 oz pur e alcohol) Depression Answer Date Recorded Patient Health Questionnaire-9 Score 0 11/23/2023 Patient Health Questionnaire-9 Score 0 11/23/2023 Last PHQ-9: Questionnaire Data Not on file 0 11/23/2023 Housing Stability Answer Date Recorded What is your housing situation today? I have he marquez 03/07/[address] you li [...] Date Recorded Patient Health Questionnaire-2 Score 0 11/23/2023 Sex and Gender Information Value Date Recorded Sex Assigned at Male 03/15/2022 10:20 AM EDT Legal Sex Male 10:20 AM EDT Gender Identity Male 03/15/2022 10:20 AM EDT Sexual Orientation Choose not to disclose 2021 10:20 AM EDT documented as of this encounter Miscellaneous Notes * Telephone Encounter - Chelita Kaufman - 06/14/2024 2:36 PM EST Tc from pt requesting a callback no further information discussed as he will like to speak to [place] [phone] documented in this encounter Plan of Treatment Upcoming Encounters Date Type Department Care Team (Late st Contact Info) Description 10/04/2024 1:00 PM EDT Office Visit [facility] MEDICINE [address] [place] [address] Jose Baker MD 230 [place] [address] documented as of this encounter Visit Diagnoses Not on filedocumented in this encounter Additional Health Concerns Assessment Noted Time PHQ-9 Depression Total Score: 0 11/23/19 24 9:34 AM EDT documented as of this encounter Care Teams Levers Lace Machine Operator Relationship Specialty Start Date End Date Jose Baker MD [address] [place] [address] PCP - General Internal Medicine 03/22/19 Smiley August [address] [place] [address] Drive 3rd [place] [address] Gastroenterology 06/14/24 Jour[place] [facility] 09/10/23 documented as of this encounter
--- OUTSIDE RECORDS SUMMARY | 2024-08-17 13:10 | XMS_ITS | Encounter Summary ---
Author Organization [employer] Address [address] [place] [address] 7t [place] [address] Care Team Providers Care Commercial Collections Driver Name Role Phone Jose Baker MD Primary Care Provide r August Unavailable Reason for Visit * Reason Onset Date Comments Med Refill 04/01/2023 Encounter Details Date Type Department Care Team ([facility] st Contact Info) Description 04/01/2023 Telephone [facility] MEDICINE [address] [place], [place] [phone] Jose Baker MD 230 [place], [place] [phone] Med Refill Social History Tobacco Use Types Packs/Day Years Used Date Smoking Tobacco: Never Passive Smoke Exposure: Never Smokeless Tobacco: Never Depression Answer Date Recorded Patient Health Questionnaire-9 Score 0 02/10/2023 Housing Stability Answer Date Recorded What is your housing situation today? I have hesatinder marquez 03/07/[address] you [...] encounter Miscellaneous Notes * Telephone Encounter - Lori Sweeney LPN - 04/01/2023 9:17 AM EST Medication was sent to [facility] on 06/01/22 #60 with 11 refills. * Telephone Encounter - Braulio Melton - 04/01/2023 9:15 AM EST Tc from pt requesting medication refill for metFORMIN (Glucophage) 1000 MG tablet documented in this encounter Plan of Treatment Upcoming Encounters Date Type Department Care Team (Late st Contact Info) Description 10/04/2024 1:00 PM EDT Office Visit [facility] MEDICINE [address] [place] [address] Jose Baker MD 230 [place] [address] documented as of this encounter Visit Diagnoses Not on filedocumented in this encounter Additional Health Concerns Assessment Noted Time PHQ-9 Depression Total Score: 0 02/11/20 1:23 PM EDT documented as of this encounter Care Teams Commercial Collections Driver Relationship Specialty Start Date End Date Jose Baker MD 230 [place] [address] PCP - General Internal Medicine 03/22/[address] [place] [address] 3rd Floor [place] [address] Gastroenterology 06/14/24 Jourdan DYE 09/10/23 documented as of this encounter
--- OUTSIDE RECORDS SUMMARY | 2024-08-17 13:10 | XMS_ITS | Encounter Summary ---
Author Organization [employer] Address [address] [place] [address] 7t [place] [address] Care Team Providers Care Mold Maker Plaster Name Role Phone Jose Baker MD Primary Care Provide r August Unavailable Reason for Visit * Reason Comments Med Refill Encounter Details Date Type Department Care Team ([facility] Contact Info) Description 08/10/2023 Refill [facility] MEDICINE [address] [place], [place] [phone] Edwina Mace MD 230 [place], [place] [phone] Social History Tobacco Use Types Packs/Day Years [...] t he electric, gas, oil or water [employer] threatened to shut off services in your [...] Description 10/04/2024 1:00 PM EDT Office Visit [facility] MEDICINE 230 [facility] [place] [address] Jose Baker MD 230 [place] [address] documented as of this encounter Visit Diagnoses Not on filedocumented in this encounter Additional Health Concerns Assessment Noted Time PHQ-9 Depression Total Score: 0 02/11/20 23 1:23 PM EDT documented as of this encounter Care Teams Mold Maker Plaster Relationship Specialty Start Date End Date Jose Baker MD 230 [place] [address] PCP - General Internal Medicine 03/22/19August [address] [place] [address] Drive 3rd [place] [address] Gastroenterology 06/14/24 [place] [facility] 09/10/23 documented as of this encounter
--- OUTSIDE RECORDS SUMMARY | 2024-08-17 13:10 | XMS_ITS | Encounter Summary ---
Author Organization [employer] Address [address] [place] [address] 7t [place] [address] Care Team Providers Care Brain Wave Technician Name Role Phone Jose Baker MD Primary Care Provide r August Unavailable Encounter Details Date Type Department Care Team (Late st Contact Info) Description 07/08/[address] [facility] MEDICINE [address] [place], [place] [phone] Jose Baker MD [address] [place], [place] [phone] Social History Tobacco Use Types Packs/Day Years [...] encounter Miscellaneous Notes * Telephone Encounter - Virgie Luis - 07/08/2023 9:34 AM EST error documented in this encounter Plan of Treatment Upcoming Encounters Date Type Department Care Team (Late st Contact Info) Description 10/04/2024 1:00 PM EDT Office Visit [facility] MEDICINE [address] [place] [address] Jose Baker MD [address] [place] [address] documented as of this encounter Visit Diagnoses Not on filedocumented in this encounter Additional Health Concerns Assessment Noted Time PHQ-9 Depression Total Score: 0 02/11/20 1:23 PM EDT documented as of this encounter Care Teams Brain Wave Technician Relationship Specialty Start Date End Date Jose Baker MD 230 [place] [address] PCP - General Internal Medicine 03/22/19August [address] 3rd [place] [address] Gastroenterology 06/14/24 Jourdan DYE 09/10/23 documented as of this encounter
--- OUTSIDE RECORDS SUMMARY | 2024-08-17 13:10 | XMS_ITS | Encounter Summary ---
Author Organization [employer] Address [address] [place] [address] 7t [place] [address] Care Team Providers Care Central Supply Technician Name Role Phone Jose Baker MD Primary Care Provide r August Reason for Visit * Reason Onset Date Comments Referral 11/21/2023 Encounter Details Date Type Department Care Team ([facility] st Contact Info) Description 11/21/2023 Telephone [facility] MEDICINE 230 [place], [place] [phone] Jose Baker MD 230 [place], [place] [phone] Referral Social History Tobacco Use Types Packs/Day Years [...] encounter Miscellaneous Notes * Telephone Encounter - Tatianna Paulino - 11/21/2023 12:28 PM EDT Tc from pt requesting a podiatry referral after Dr [facility] [place] [facility]. documented in this encounter Plan of Treatment Upcoming Encounters Date Type Department Care Team (Late st Contact Info) Description 10/04/2024 1:00 PM EDT Office Visit [facility] MEDICINE [address] [place] [address] Jose Baker MD 230 [place] [address] documented as of this encounter Visit Diagnoses Not on filedocumented in this encounter Additional Health Concerns Assessment Noted Time PHQ-9 Depression Total Score: 0 02/11/20 23 1:23 PM EDT documented as of this encounter Care Teams Central Supply Technician Relationship Specialty Start Date End Date Jose Baker MD 230 [place] [address] PCP - General Internal Medicine 03/22/19August [address] [place] [address] Drive 3rd [place] [address] Gastroenterology 06/14/24 [place] [facility] 09/10/23 documented as of this encounter
--- OUTSIDE RECORDS SUMMARY | 2024-08-17 13:10 | XMS_ITS | Encounter Summary ---
Author Organization [employer] Address [address] [place] [address] 7t [place] [address] Care Team Providers Care Residential Green Building Designer Name Role Phone Jose Baker MD Primary Care Provide r August Unavailable Reason for Visit * Reason Comments Med Refill Encounter Details Date Type Department Care Team ([facility] Contact Info) Description 06/01/2022 Telephone [facility] MEDICINE [address] [place], [place] [phone] Jose Baker MD [address] [place], [place] [phone] Med Refill Social History Tobacco Use Types Packs/Day Years Used Date Smoking Tobacco: Never Smokeless Tobacco: Never Sex and Gender Information Value Date Recorded Sex Assigned at Male 03/15/2022 10:20 AM EDT Legal Sex Male 10:20 AM EDT Gender Identity Male 03/15/2022 10:20 AM EDT Sexual Orientation Choose not to disclose 2021 10:20 AM EDT COVID-19 Exposure Response Date Recorded In the last 10 days, have yo u been in contact with someone who was confirmed or suspected to have Coronavirus/COVID-19? No / Unsure 05/11/2022 10:53 AM EST documented as of this encounter Miscellaneous Notes * Telephone Encounter - Cristiane Toledo RN - 06/03/2022 1:10 PM EST Telephone call to pt in regards to medication and MRI. Pt stated he has his MRI on the at 2:30. Pt stated he has been taking motrin 800 mg he bought in [place] for the longest time and nothing has happed to him but if he needs to stop taking them he will, stated acetaminophen does nothing for his back pain.Advised pt to call back with any questions or concerns. Pt verbalizes understanding and agrees with plan. * Telephone Encounter - Cristiane Toledo RN - 06/02/2022 12:17 PM EST T/C placed to pt x2 PM re below lab results and POC. No answer, left V/M. Will retask to green nurses for final attempt. * Telephone Encounter - Flora Weiss RN - 06/02/2022 10:00 AM EST T/C placed to pt x1 AM re below message. No answer, left V/M. Will retask to green nurses for second attempt * Telephone Encounter - Jose Carbajal MD - 06/01/2022 4:34 PM EST Patient is on Apixaban, Ibuprofen high dose increases his risk of bleeding, Please encourage him touse Acetaminophen instead. We have been trying to get a hold of him to schedule his Hip MRI, but apparently with no success. Please make sure the Hip MRI gets scheduled NISA documented in this encounter Plan of Treatment Upcoming Encounters Date Type Department Care Team (Late st Contact Info) Description 10/04/2024 1:00 PM EDT Office Visit [facility] MEDICINE [address] [place], [place] [phone] Jose Baker MD [address] [place] [address] documented as of this encounter Visit Diagnoses Diagnosis Left hip pain Pain in joint, pelvic region and thigh documented in this encounter Care Teams Residential Green Building Designer Relationship Specialty Start Date End Date Jose Baker MD 230 [place] [address] PCP - General Internal Medicine 03/22/[address] [place] [address] 3rd [place] [address] Gastroenterology [facility]14[facility] documented as of this encounter
--- OUTSIDE RECORDS SUMMARY | 2024-08-17 13:10 | XMS_ITS | Encounter Summary ---
Author Organization [employer] Address [address] [place] [address] 7t [place] [address] Care Team Providers Care Hydrodynamics Teacher Name Role Phone Jose Baker MD Primary Care Provide r August Unavailable Reason for Visit * Reason Onset Date Comments Med B Form 04/05/2023 Encounter Details Date Type Department Care Team ([facility] st Contact Info) Description 04/05/2023 Telephone [facility] MEDICINE [address] [place], [place] [phone] Jose Baker MD [address] [place], [place] [phone] Med B Form Social History Tobacco Use Types Packs/Day Years [...] * Telephone Encounter - Tatianna Paulino - 04/05/2023 1:14 PM EST Tc from pt requesting renew on Med B Form for glucose blood (FREESTYLE LITE) test strip. documented in this encounter Plan of Treatment Upcoming Encounters Date Type Department Care Team (Late st Contact Info) Description 10/04/2024 1:00 PM EDT Office Visit [facility] MEDICINE [address] [place] [address] Jose Baker MD [address] [place] [address] documented as of this encounter Visit Diagnoses Not on filedocumented in this encounter Additional Health Concerns Assessment Noted Time PHQ-9 Depression Total Score: 0 02/11/20 23 1:23 PM EDT documented as of this encounter Care Teams Hydrodynamics Teacher Relationship Specialty Start Date End Date Jose Baker MD 230 [place] [address] PCP - General Internal Medicine 03/22/[address] [place] [address] Drive 3rd [place] [address] Gastroenterology 06/14/24 [place] [facility] 09/10/23 documented as of this encounter
--- OUTSIDE RECORDS SUMMARY | 2024-08-17 13:10 | XMS_ITS | Encounter Summary ---
Author Organization [employer] Address [address] [place] [address] 7t [place] [address] Care Team Providers Care Pay Per Click Strategist Name Role Phone Jose Baker MD Primary Care Provide r August Unavailable Reason for Visit * Reason Onset Date Comments Paperwork/Forms 03/31/2023 Encounter Details Date Type Department Care Team ([facility] st Contact Info) Description 03/31/2023 Telephone [facility] MEDICINE [address] [place], [place] [phone] Jose Baker MD 230 [place], [place] [phone] Paperwork/Forms Social History Tobacco Use Types Packs/Day Years [...] encounter Miscellaneous Notes * Telephone Encounter - Wilmer Carbajal - 04/05/2023 9:44 AM EST Tc from patient requesting the status on message below. * Telephone Encounter - Virgie Smith - 03/31/2023 11:30 AM EST TC from pt stated need a med b form for test strips. Pt has no test strips. Pcp Dr. Carballo documented in this encounter Plan of Treatment Upcoming Encounters Date Type Department Care Team (Late st Contact Info) Description 10/04/2024 1:00 PM EDT Office Visit [facility] MEDICINE [address] [place] [address] Jose Baker MD [address] [place] [address] documented as of this encounter Visit Diagnoses Not on filedocumented in this encounter Additional Health Concerns Assessment Noted Time PHQ-9 Depression Total Score: 0 02/11/20 23 1:23 PM EDT documented as of this encounter Care Teams Pay Per Click Strategist Relationship Specialty Start Date End Date Jose Baker MD 230 [place] [address] PCP - General Internal Medicine 03/22/[address] [place] [address] 3rd [place] [address] Gastroenterology 06/14/24 [place] [facility] 09/10/23 documented as of this encounter
--- OUTSIDE RECORDS SUMMARY | 2024-08-17 13:10 | XMS_ITS | Encounter Summary ---
Author Organization [employer] Address [address] [place] [address] 7t [place] [address] Care Team Providers Care Pulp Mixer Name Role Phone Jose Baker MD Primary Care Provide r August Unavailable Reason for Visit * Reason Comments Med Refill Encounter Details Date Type Department Care Team ([facility] Contact Info) Description 10/04/2023 Refill [facility] MEDICINE 230 [place], [place] [phone] Jose Baker MD 230 [place], [place] [phone] Type 2 diabetes mellitus without complications (CMS/HCC); Hip osteomyelitis, left (CMS/HCC) Social History Tobacco [...] Office Visit [facility] MEDICINE [address] [place] [address] Jose Baker MD [address] [place] [address] documented as of this encounter Visit Diagnoses Diagnosis Type 2 diabetes mellitus without complications (CMS/HCC) Hip osteomyelitis, left (CMS/HCC) Unspecified osteomyelitis, pelvic region and thigh documented in this encounter Additional Health Concerns Assessment Noted Time PHQ-9 Depression Total Score: 0 02/11/20 1:23 PM EDT documented as of this encounter Care Teams Pulp Mixer Relationship Specialty Start Date End Date Jose Baker MD [address] [place] [address] PCP - General Internal Medicine 03/22/19August [address] [place] [address] 3rd [place] [address] Gastroenterology 06/14/24 [place] [facility] 09/10/23 documented as of this encounter
--- OUTSIDE RECORDS SUMMARY | 2024-08-17 13:10 | XMS_ITS | Encounter Summary ---
Author Organization [employer] Address [address] [place] [address] 7t [place] [address] Care Team Providers Care Concrete Building Assembler Name Role Phone Jose Baker MD Primary Care Provide r August Reason for Visit * Reason Comments Med Refill Encounter Details Date Type Department Care Team ([facility] st Contact Info) Description 04/19/2024 Refill [facility] MEDICINE 230 [place], [place] [phone] Jose Baker MD 230 [place], [place] [phone] Acute pain of both shoulders Social History Tobacco Use Types Packs/Day Years [...] Description 10/04/2024 1:00 PM EDT Office Visit [facility] MEDICINE 230 [place] [address] Jose Baker MD [address] [place] [address] documented as of this encounter Visit Diagnoses Diagnosis Acute pain of both shoulders documented in this encounter Additional Health Concerns Assessment Noted Time PHQ-9 Depression Total Score: 0 11/23/19 24 9:34 AM EDT documented as of this encounter Care Teams Concrete Building Assembler Relationship Specialty Start Date End Date Jose Baker MD 230 [place] [address] PCP - General Internal Medicine 03/22/19August [address]rd [place] [address] Gastroenterology 06/14/24 Jourdan ADAMSON[facility] 09/10/23 documented as of this encounter
--- OUTSIDE RECORDS SUMMARY | 2024-08-17 13:10 | XMS_ITS | Encounter Summary ---
Author Organization [employer] Address [address] [place] [address] 7t [place] [address] Care Team Providers Care Crusher Plant Operator Name Role Phone Jose Baker MD Primary Care Provide r August Unavailable Reason for Visit * Reason Onset Date Comments PT1 10/28/2023 Encounter Details Date Type Department Care Team ([facility] st Contact Info) Description 10/28/2023 Telephone [facility] MEDICINE 230 [place], [place] [phone] Jose Baker MD 230 [place], [place] [phone] PT1 Social History Tobacco Use Types Packs/Day Years [...] * Telephone Encounter - Tatianna Paulino - 10/28/2023 12:19 PM EDT Patient calling requesting PT1 Home Address verified: Y/N: Yes Provider name or facility name: [facility] Facility Address: [address] [place] [address] Escort needed: Y/N: Yes Do you have a wheelchair: Y/N: Yes If yes- Manual or electric: Electric Visits: n/a documented in this encounter Plan of Treatment Upcoming Encounters Date Type Department Care Team (Late st Contact Info) Description 10/04/2024 1:00 PM EDT Office Visit [facility] MEDICINE [address] [place] [address] Jose Baker MD [address] [place] [address] documented as of this encounter Visit Diagnoses Not on filedocumented in this encounter Additional Health Concerns Assessment Noted Time PHQ-9 Depression Total Score: 0 02/11/20 1:23 PM EDT documented as of this encounter Care Teams Crusher Plant Operator Relationship Specialty Start Date End Date Jose Baker MD [address] [place] [address] PCP - General Internal Medicine 03/22/19August [address] 3rd [place] [address] Gastroenterology 06/14/24 [place] [facility] 09/10/23 documented as of this encounter
--- OUTSIDE RECORDS SUMMARY | 2024-08-17 13:10 | XMS_ITS | Clinical Summary ---
Author Organization 175 [facility] Address [address] [place] [address] Phone Care Team Providers Care Melt Helper Name Role Phone Jose Grayson MD Primary Care Provi gauri Allergies Active Allergy Reactions Criticality Noted Date Comments Levofloxacin Hives,Rash Medium 10/02/2020 Other Itching Medium 10/02/2020 Medications apixaban (ELIQUIS) 5 mg tablet Take?by mouth. Active aspirin 81 mg EC tablet Take 81 mg by mouth daily. Active baclofen 2,000 mcg/mL intrathecal solution by Intrathecal route. Active gabapentin (NEURONTIN) 800 mg tablet Take 800 mg by mouth 3 times daily. Active hydrocortisone 2.5 % ointment Apply?topica lly 2 times daily. Active insulin glargine (Lantus Solostar U-100 Insulin) 100 unit/mL (3 mL) injection pen Inject?into the skin. Active latanoprost (XALATAN) 0.005 % ophthalmic solution 1 Drop at bedtime. Active levoFLOXacin (LEVAQUIN) 250 mg tablet Take 250 mg by mouth daily. Active lisinopriL (PRINIVIL,ZESTRI L) 5 mg tablet Take 5 mg by mouth daily. Active metFORMIN (GLUCOPHAGE) 1,000 mg tablet Take 1,000 mg by mouth 2 times daily (with meals). Active omadacycline (Nuzyra) 150 mg tablet Take?by mouth. Active oxyCODONE (ROXICODONE) 5 mg immediate release tablet Take one tablet every 6 hours as needed for pain Active Active Problems Problem Noted Date Diagnosed Date Type 2 diabetes mellitus 01/02/2021 Chronic osteomyelitis involving ankle and foot, left 01/02/2021 Social History Tobacco Use Types Packs/Day Years Used Date Smoking Tobacco: Never Smokeless Tobacco: Never Alcohol Use Standard Drinks/Week Comments Yes 0 (1 standard drink = 0.6 oz pur e alcohol) Sex and Gender Information Value Date Recorded Sex Assigned at Not on file Legal Sex Male 6:15 PM EST Gender Identity Not on file Sexual Orientation Not on file Obstetrics History Last Filed Vital Signs Vital Sign Reading Time Taken Comments Blood Pressure - - Pulse - - Temperature - - Respiratory Rate - - Oxygen Saturation - - Inhaled Oxygen Concentration - - Weight 90.7 kg (200 lb) 04/17/2024 2:54 PM EST Height 182.9 cm (6') 04/17/2024 2:54 PM EST Body Mass Index 27.12 04/17/2024 2:54 PM EST Plan of Treatment Upcoming Encounters Date Type Department Care Team ([facility] st Contact Info) Description 09/17/2024 2:45 PM EDT Consult Orthopedic Surgery - [place] [id number] [id number] Irwin Caraballo, DPM [address] [address] Health Maintenance Due Date Last Done Comments Diabetes: Annual Foot Exam 1965 Diabetes: Annual Retina Eye Exam 1965 RSV Immunization Adult Patients (1 - Risk 60-74 years 1-dose series) 2015 Colorectal Cancer Screening: Colonoscopy 04/17/2022 Falls Risk Assessment 04/17/2022 Hepatitis C Screening 04/17/2022 Medicare Annual Wellness Visit 04/17/2022 Social Influencers of Health Screening 04/17/2022 Diabetes: Annual Urine Albumin-Creatinine Ratio (uACR) 05/01/2022 COVID-19 Vaccine ( season) 2024 04/28/2023, 12/22/2021, 08/04/2021, Additional history exists Diabetes: Blood Sugar Control Test (HGBA1C) 09/12/2024 03/15/2024 Depression Screening 11/22/2024 11/23/2023 Diabetes: Annual GFR (Glomerular Filtration Rate) 02/02/2025 02/03/2024 Hypertension/CHF/CAD Annual BMP Blood Test 02/02/2025 02/03/2024 DTaP,Tdap,and Td Vaccines (3 - Td or Tdap) 03/25/2028 03/25/2018, 09/08/2017 Cholesterol Screening (Lipid Panel) 11/22/2028 11/23/2023 Hepatitis B Vaccines Completed 12/22/2021, 10/11/2017, 09/08/2017 Pneumococcal Vaccine: 50+ Years Completed 12/22/2021, 09/08/2017, 03/15/2012 Zoster Vaccines Completed 03/09/2022, 12/15, 09/09/2017 Influenza Vaccine Completed 03/15/2024, , 01/21/2022, Additional history exists HIB Vaccines Aged Out No longer eligi ble based on patient's age to complete this topic HPV Vaccines Aged Out No longer eligi ble based on patient's age to complete this topic Hepatitis A Vaccines Aged Out No long er eligible based on patient's age to complete this topic IPV Vaccines Aged Out No longer eligi ble based on patient's age to complete this topic MMR Vaccines Aged Out No longer eligi ble based on patient's age to complete this topic Meningococcal ACWY Vaccine Aged Out N o longer eligible based on patient's age to complete this topic Meningococcal B Vacine Aged Out No lo nger eligible based on patient's age to complete this topic RSV Immunization Patients Under 20 months Aged Out No longer eligible based on patient's age to complete this topic Varicella Vaccines Aged Out No longer eligible based on patient's age to complete this topic Insurance , [address] [id number] MEDICAID - [place] MEDICARE Care Teams Melt Helper Relationship Specialty Start Date End Date Jose Grayson MD [address] [place] [address] [place] [id number] PCP - General Internal Medicine 04/08/21
--- OUTSIDE RECORDS SUMMARY | 2024-08-17 13:10 | XMS_ITS | Clinical Summary ---
Author Organization [employer] Address [address] [place] [address] [address] [place] [address] Care Team Providers Care Talent Acquisition Associate Name Role Phone Jose Baker MD Primary Care Provide r August Unavailable Allergies Active Allergy Reactions Criticality Noted Date Comments Levofloxacin 04/15/2017 Other reaction(s): Hives / Skin Rash Shellfish-Derived Products Itching 7 Medications latanoprost (Xalatan) 0.005 % ophthalmic solution Administer 1 drop into affected eye(s) at bed time. 03/08/20 18 Active apixaban (Eliquis) 5 MG tablet Take 1 tablet by mouth every 12 (twelve) hours. Active ascorbic acid (Vitamin C) 1000 MG tablet Take 1 tablet by mouth in the morning. Active baclofen (Lioresal) 20 MG tablet Take 2 tablets by mouth every 12 (twelve) hours. 04/03/20 21 Active cholecalciferol (Vitamin D-3) 25 MCG (1000 UT) capsule Take 1 capsule by mouth 1 (one) time each day. Active cyanocobalamin (Vitamin B-12) 1000 MCG tablet Take 3 tablets by mouth in the morning. Active Diclofenac Sodium 1 % gel Apply 2 g topically every 12 (twelve) hours. 12/23/19 22 Active ferrous sulfate 325 (65 Fe) MG EC tablet Take 1 tablet by mouth every 12 (twelve) hours. Active gabapentin (Neurontin) 800 MG tablet Take 1 tablet by mouth every 12 (twelve) hours. 04/30/20 21 Active omega-3 (Fish Oil) 1200 MG capsule Take 1 capsule by mouth in the morning. Active omeprazole (PriLOSEC) [address] capsule Take 1 capsule by mouth every 12 (twelve) hours. 12/23/19 22 Active zinc gluconate 50 MG tablet Take 1 tablet by mouth 1 (one) time each day. Active TRUEplus Lancets 33G mis TEST BLOOD SUGAR THREE TIMES DAILY 100 each 04/01/20 23 Active metFORMIN (Glucophage) 1000 MG tabletIndicatio ns:Type 2 diabetes mellitus with other diabetic kidney complication (CMS/HCC) TAKE 1 TABLET BY MOUTH TWICE DAILY IN THE MORNING AND IN THE EVENING WITH MEALS 180 tablet 3 04/05/20 23 Active insulin glargine (Basaglar KwikPen) 100 UNIT/ML penIndications: Type 2 diabetes mellitus without complication, with long-term current use of insulin ([facility]) Inject 20 units subcutaneous qhs 15 mL 09/06/19 24 Active insulin pen needle (Novofine Pen Needle) 32G x 6 mm miscIndications :Type 2 diabetes mellitus with other diabetic kidney complication ([facility]/HCC) USE DIRECTED EVERY DAY 100 each 09/06/19 24 Active glucose blood (FREESTYLE LITE) test stripIndication s:Type 2 diabetes mellitus without complication, with long-term current use of insulin ([facility]) Test blood sugars 3 times a day 100 each 10/06/19 24 Active lisinopril 5 MG tabletIndicatio ns:Primary hypertension TAKE 1 TABLET BY MOUTH EVERY DAY 90 tablet 1 03/26/20 24 Active aspirin (Aspirin Adult Low Strength) 81 MG EC tabletIndicatio ns:Type 2 diabetes mellitus with other diabetic kidney complication (CMS/HCC) Take 1 tablet (81 mg) by mouth Once per day. 90 tablet 3 04/17/20 24 Active ibuprofen 800 MG tabletIndicatio ns:Hip osteomyelitis, left (CMS/HCC) TAKE 1 TABLET BY MOUTH THREE TIMES DAILY NEEDED FOR MILD PAIN 60 tablet 06/05/19 25 Active Acetaminophen Extra Strength 500 MG tabletIndicatio ns:Acute pain of both shoulders Take 1 tablet (500 mg) by mouth every 8 (eight) hours. 60 tablet 3 07/05/19 25 Active loratadine (Claritin) 10 MG tabletIndicatio ns:Seasonal allergies TAKE 1 TABLET BY MOUTH EVERY DAY IN THE MORNING 90 tablet 07/20/19 25 Active betamethasone, augmented, (Diprolene) 0.05 % ointment APPLY TOPICALLY TWICE DAILY 45 g 1 08/10/19 25 Active betamethasone, augmented, (Diprolene) 0.05 % ointment Apply topically 2 times daily. 45 g 1 01/18/20 24 2024 Discontinued loratadine (Claritin) 10 MG tabletIndicatio ns:Seasonal allergies TAKE 1 TABLET BY MOUTH EVERY DAY IN THE MORNING 90 tablet 04/17/20 24 2024 Discontinued Active Problems Problem Noted Date Diagnosed Date Abscess 02/10/2024 Assessment & Plan (02/10/2024 3:17 PM EDT): Wound appears red, to and indurated. -referring to general surgery for incision & drainage versus biopsy. -obtained wound culture. -prescribed doxycyline empirically 100 mg BID for 10 days. Diaphoresis 12/15/2023 Assessment & Plan (12/15/2023 2:07 PM EDT): Pt with DM, PAD, Anemia and paraplegia with c/o intermittent diaphoresis, unclear etiology. High risk for Coronary artery disease Plan: Cardiology evaluation for consideration of pharmacologic stress test Dermatitis 06/14/2023 Assessment & Plan (09/13/2023 1:40 PM EDT): Seen by Dr Mace on Bethamethasone Assessment & Plan (06/14/2023 1:54 PM EST): Pt with a pruritic dermatosis posterior arms bilaterally Exam suggestive of eczema Plan: triamcinolone BID, dermatology referral Acute pain of both shoulders 06/14/2023 Assessment & Plan (09/13/2023 1:43 PM EDT): New onset. Full rom although painful, cotton puller redness, no swelling, no deformity, no hx of trauma Etiology ? Tendinosis plain films showed: 1. No fracture or dislocation is seen. 2. There is very mild osteoarthritic change of the left glenohumeral joint. 3. Findings suggest slight left rotator cuff impingement, without cherry calcific tendinitis noted. PT completed with good results Assessment & Plan (06/14/2023 1:51 PM EST): New onset. Full rom although painful, cotton puller redness, no swelling, no deformity, no hx of trauma Etiology ? Tendinosis Plan: plain films, PT eval Peripheral arterial disease 05/11/2022 Assessment & Plan (06/14/2024 1:20 PM EST): Patient is here for a f/u Under the care of Dr. Quinones. He has a Hx of Osteomyelitis of left foot He underwent metatarsal resection of his left 4th and 5th toe pt is being followed at the wound clinic at [facility] as well, still has some wounds being followed Pt tells me he is taking eliquis from Dr quinones and knows not to overuse the Ibuprofen since it may increase the risk of bleeding . Pt verbalizes understanding of risks of concomitant use but wants to use Motrin PRN Assessment & Plan (06/14/2023 1:32 PM EST): Patient is here for a f/u Under the care of Dr. Quinones. He has a Hx of Osteomyelitis of left foot He underwent metatarsal resection of his left 4th and 5th toe pt is being followed at the wound clinic at [facility] as well, still has some wounds being followed Pt tells me he is taking eliquis from Dr quinones and knows not to overuse the Ibuprofen since it may increase the risk of bleeding . Pt verbalizes understanding of risks of concomitant use but wants to use Motrin PRN Assessment & Plan (02/10/2023 1:38 PM EDT): Patient is here for a f/u Under the care of Dr. Quinones. He has a Hx of Osteomyelitis of left foot He underwent metatarsal resection of his left 4th and 5th toe pt is being followed at the wound clinic at [facility] as well, still has some wounds being followed Pt tells me he is taking eliquis from Dr quinones and knows not to overuse the Ibuprofen since it may increase the risk of bleeding . Pt verbalizes understanding of risks of concomitant use but wants to use Motrin PRN Assessment & Plan (05/11/2022 1:00 PM EST): Pt here for a f/u Under the care of Dr. Quinones, He has a Hx of Osteomyelitis of left foot He recently underwent metatarsal resection of his left 4th and 5th toe pt is being followed at the wound clinic at [facility] as well, still has some wounds being followed Left hip pain 05/11/2022 Assessment & Plan (05/11/2022 12:54 PM EST): Pt here for a sick visit with c/o moderate to severe left hip pain, seen at the office of [employer] ( Dr Lazcano ) who ordered an x-ray of his AP pelvis and left hip Done 04/19/2022 showed: No acute fracture or dislocation, coilar spurring, no destructive bony lesion. Increase sclerosis involving the left ischium which was not sclerotic on previous study . There is also a soft tissue defect present with gas adjacent to the ischium, Plan: Given his hs of ischium osteomyelitis and the suggestion of gas adjacent to the ischium will proceed with an MRI of the left hip Will also refer to Ortho Hip osteomyelitis, left 05/11/2022 Assessment & Plan (06/14/2024 1:26 PM EST): MRI Pelvis 02/20/2024 showed: IMPRESSION: 1. Soft tissue ulceration along the inferior aspect of the left ischial tuberosity with adjacent cellulitis. No organized fluid collection or abscess formation. Underlying acute osteomyelitis within the ischial tuberosity. 2. Possible soft tissue ulceration along the lateral aspect of the left greater trochanter with adjacent cellulitis. No associated osteomyelitis. 3. Chronic tendinopathy and probable partial tearing of the proximal left hamstring tendon. No full-thickness tendon tear or tendon retraction. 4. Mild bilateral hip osteoarthritis. Severe degenerative disc disease and facet arthropathy within the lower lumbar spine. 5. Mildly prominent left inguinal lymph nodes, similar when compared to the MRI dated 06/09/2022. He has a Hx of Left ischial decubitus ulcer with underlying osteomyelitis in the ischium. Under the care of [facility] clinic who recommended ID consultation. Seen by Dr. Gomez 03/07/2024 Who recommended PO Linezolid x 21 days Last seen 03/28/2024 recommended no further Abx In the past he was treated with IV Antibiotics. He finished Ertapenem x 6 weeks He was also seen by Ortho back in 06/14/2022 they reviewed x-rays and MRI and recommended no further intervention. He has been referred to plastic surgery by wound clinic. Assessment & Plan (03/15/2024 1:31 PM EDT): MRI Pelvis 02/20/2024 showed: IMPRESSION: 1. Soft tissue ulceration along the inferior aspect of the left ischial tuberosity with adjacent cellulitis. No organized fluid collection or abscess formation. Underlying acute osteomyelitis within the ischial tuberosity. 2. Possible soft tissue ulceration along the lateral aspect of the left greater trochanter with adjacent cellulitis. No associated osteomyelitis. 3. Chronic tendinopathy and probable partial tearing of the proximal left hamstring tendon. No full-thickness tendon tear or tendon retraction. 4. Mild bilateral hip osteoarthritis. Severe degenerative disc disease and facet arthropathy within the lower lumbar spine. 5. Mildly prominent left inguinal lymph nodes, similar when compared to the MRI dated 06/09/2022. He has a Hx of Left ischial decubitus ulcer with underlying osteomyelitis in the ischium. Under the care of [facility] clinic who recommended ID consultation. Seen by Dr. Gomez 03/07/2024 Who recommended PO Linezolid x 21 days In the past he was treated with IV Antibiotics. He finished Ertapenem x 6 weeks He was also seen by Ortho back in 06/14/2022 they reviewed x-rays and MRI and recommended no further intervention. He has been referred to plastic surgery Assessment & Plan (02/10/2023 1:30 PM EDT): MRI Hip 06/09/2022 showed: 1. Left ischial decubitus ulcer with underlying osteomyelitis in the ischium. Of note, the osteomyelitis at the ischial tuberosity appears more chronic with an adjacent, proximal ischial focus that appears more acute. No abscess. Overall, the marrow findings are less pronounced as compared to the prior MRI from 05/29/2021. 2. Prominent left inguinal and external iliac lymph nodes, likely reactive. 3. Fat-containing right inguinal hernia. MRI showing signs of chronic Osteomyelitis with acute component. Case discussed with patient's surgeon Dr. Barnett at the [facility]ound clinic who recommended ID consultation. She will discuss perhaps doing Hyperbaric chamber treatment but is not too keen in taking him to the OR for debridement given that he is paraplegic. Case discussed at length with patient, He verbalized understanding of plan. Pt was initially referred to Dr Arleth Lauren ID specialist which declined the consult for unclear reasons. He was subsequently referred to Dr Sandra Gomez who started patient on IV Antibiotics. He finished Ertapenem recommended to use for 6 weeks He was also seen by Ortho back in 06/14/2022 they reviewed x-rays and MRI and recommended no further intervention Assessment & Plan (09/14/2022 11:55 AM EDT): MRI Hip 06/09/2022 showed: 1. Left ischial decubitus ulcer with underlying osteomyelitis in the ischium. Of note, the osteomyelitis at the ischial tuberosity appears more chronic with an adjacent, proximal ischial focus that appears more acute. No abscess. Overall, the marrow findings are less pronounced as compared to the prior MRI from 05/29/2021. 2. Prominent left inguinal and external iliac lymph nodes, likely reactive. 3. Fat-containing right inguinal hernia. MRI showing signs of chronic Osteomyelitis with acute component. Case discussed with patient's surgeon Dr. Barnett at the [facility]ound clinic who recommended ID consultation. She will discuss perhaps doing Hyperbaric chamber treatment but is not too keen in taking him to the OR for debridement given that he is paraplegic. Case discussed at length with patient, He verbalized understanding of plan. Pt was initially referred to Dr Arleth Lauren ID specialist which declined the consult for unclear reasons. He was subsequently referred to Dr Sandra Gomez who started patient on IV Antibiotics. He is on Ertapenem recommended to use for 6 weeks He was also seen by Ortho back in 06/14/2022 they reviewed x-rays and MRI and recommended no further intervention Anemia in other chronic diseases classified else where 05/11/2022 Assessment & Plan (06/14/2024 1:14 PM EST): Patient here for a f/u H&H as of 01/2024 Hgb 9.6/ Continue PO iron supplementation, patient states he takes one daily d/t constipation. No prior hx of IV iron supplementation, however has discussed this possibility with Dr. Lazcano - Continue daily omeprazole Pt is s/p EGD by GI 12/28/[address] Swift pt has a hx of positive Cologuard for which he had a f/u Colonoscopy 09/25/2020 (poor prep ) iFOBT testing as recommended by GI q. 6 months due to poor prep Last seen by Dr. Lazcano 03/30/2024. Recommended 2 units of PRBCs commented Bone marrow exam unremarkable Assessment & Plan (03/15/2024 1:43 PM EDT): Patient here for a f/u H&H as of 01/2024 Hgb 9.6/ Continue PO iron supplementation, patient states he takes one daily d/t constipation. No prior hx of IV iron supplementation, however has discussed this possibility with Dr. Lazcano - Continue daily omeprazole Pt is s/p EGD by GI 12/28/[address] Swift pt has a hx of positive Cologuard for which he had a f/u Colonoscopy 09/25/2020 (poor prep ) iFOBT testing as recommended by GI q. 6 months due to poor prep Last seen by Dr. Lazcano 01/26/2024 Assessment & Plan (12/15/2023 2:05 PM EDT): Patient here for a f/u H&H as of 11/2023 Hgb 8.6/ Hct 30.5 Continue PO iron supplementation, patient states he takes one daily d/t constipation. No prior hx of IV iron supplementation, however has discussed this possibility with Dr. Lazcano - Continue daily omeprazole Pt is s/p EGD by GI 12/28/[address] Swift pt has a hx of positive Cologuard for which he had a f/u Colonoscopy 09/25/2020 (poor prep ) iFOBT testing as recommended by GI q. 6 months due to poor prep Last seen by Dr. Lazcano 07/2023, has a follow up with her next month Assessment & Plan (09/13/2023 1:36 PM EDT): Patient here for a f/u H&H as of 08/2022 Hgb 9.9/ Hct 32 Continue PO iron supplementation, patient states he takes one daily d/t constipation. No prior hx of IV iron supplementation, however has discussed this possibility with Dr. Lazcano - Continue daily omeprazole Pt is s/p EGD by GI 12/28/[address] Swift pt has a hx of positive Cologuard for which he had a f/u Colonoscopy 09/25/2020 (poor prep ) iFOBT testing as recommended by GI q. 6 months due to poor prep Last seen by Dr. Lazcano 07/2023 Assessment & Plan (06/14/2023 1:24 PM EST): Patient here for a f/u H&H as of 08/2022 Hgb 9.9/ Hct 32 Continue PO iron supplementation, patient states he takes one daily d/t constipation. No prior hx of IV iron supplementation, however has discussed this possibility with Dr. Lazcano - Continue daily omeprazole Pt is s/p EGD by GI 12/28/[address] Swift pt has a hx of positive Cologuard for which he had a f/u Colonoscopy 09/25/2020 (poor prep ) iFOBT testing as recommended by GI q. 6 months due to poor prep Last seen by Dr. Lazcano 03/28/2023 Assessment & Plan (05/11/2022 12:57 PM EST): Here for a f/u H&H Stable as of 01/04/2022 Hgb 11.4/ Hct 36 Continue PO iron supplementation, patient states he takes one daily d/t constipation. No prior hx of IV iron supplementation, however has discussed this possibility with Dr. Lazcano - Continue daily omeprazole Pt is s/p EGD by GI 12/28/[address] Swift pt has a hx of positive Cologuard for which he had a f/u Colonoscopy 09/25/2020 (poor prep ) iFOBT testing as recommended by GI q. 6 months due to poor prep Chronic midline low back pain without sciatica 1 07/12/2021 Assessment & Plan (05/11/2022 1:08 PM EST): Pt here for a f/u Pt with on and off low back pain , usually presents after he is been sitting for long periods of time In the past had been taking Tramadol per his reports Plain films 11/29/2020 showed Old L1, L2 compression fractures as well as severe spondylosis Previous visit I gave him a trial of Acetaminophen 500mg po q 8 hrs prn Patient was evaluated by [facility] recommended Injections, he declined, they recommended to f/u with them if he changed his mind Preventative health care 05/11/2022 Assessment & Plan (03/15/2024 1:44 PM EDT): ASIA: PSA 12/15/2023 Normal Colonoscopy: Pt had Cologuard with his [employer] reported as Positive they discussed with him the need for colonoscopy given the findings of the cologuard. Pt is s/p EGD by GI 12/28/[address] Swift pt has a hx of positive Cologuard for which he had a f/u Colonoscopy 09/25/2020 (poor prep ) iFOBT testing as recommended by GI q. 6 months due to poor prep Assessment & Plan (02/10/2023 1:31 PM EDT): ASIA: PSA 02/19/2021 Normal Colonoscopy: Pt had Cologuard with his [employer] reported as Positive they discussed with him the need for colonoscopy given the findings of the cologuard. Pt is s/p EGD by GI 12/28/[address] Swift pt has a hx of positive Cologuard for which he had a f/u Colonoscopy 09/25/2020 (poor prep ) iFOBT testing as recommended by GI q. 6 months due to poor prep Assessment & Plan (05/11/2022 1:09 PM EST): ASIA: PSA 02/19/2021 Normal Colonoscopy: Pt had Cologuard with his [employer] reported as Positive they discussed with him the need for colonoscopy given the findings of the cologuard. Pt is s/p EGD by GI 12/28/[address] Swift pt has a hx of positive Cologuard for which he had a f/u Colonoscopy 09/25/2020 (poor prep ) iFOBT testing as recommended by GI q. 6 months due to poor prep History of osteomyelitis 05/11/2022 Assessment & Plan (05/11/2022 1:11 PM EST): Pt with Hx of left ischial ostemyelitis back in 06/03/2021, finished 6 weeks of IV Abx Vanco and Ertapenem Pt finished July 15, 2021 pt continues to follow with Wound care center Pt was seen by Dr Gomez in the past Most recent x-ray if his hip showed some gas adjacent to the ischium, given his c/o severe pain will proceed with a repeat MRI Pressure injury of left buttock, unstageable Assessment & Plan (06/14/2024 1:20 PM EST): Under the care of the wound clinic, last seen 05/23/2024 Assessment & Plan (06/14/2023 1:24 PM EST): Under the care of the wound clinic, last seen 05/2023 Assessment & Plan (02/10/2023 1:29 PM EDT): Under the care of the wound clinic, last seen 01/2023 Assessment & Plan (09/14/2022 11:34 AM EDT): Under the care of the wound clinic, last seen 09/07/2022 Assessment & Plan (05/11/2022 12:55 PM EST): Under the care of the wound clinic, last seen 04/19/2022 Paraplegia 04/26/2018 Assessment & Plan (06/14/2024 1:20 PM EST): Pt had an accident at work and suffered a lumbar disc fracture T10 and L2 , he had a surgical intervention that resulted in this 1998. Pt has sensation on his feet but has a reno in place and changes his [place] once a month. Pt also has peripheral neuropathy he takes gabapentin 800 mg po BID and Baclofen 20 mg 2 tabs TID Prescribed by Neurologist Dr Pastrana. PT NEEDS A NEW ELECTRIC WHEELCHAIR Assessment & Plan (12/15/2023 2:20 PM EDT): Pt had an accident at work and suffered a lumbar disc fracture T10 and L2 , he had a surgical intervention that resulted in this 1997. Pt has sensation on his feet but has a reno in place and changes his [place] once a month. Pt also has peripheral neuropathy he takes gabapentin 800 mg po BID and Baclofen 20 mg 2 tabs TID Prescribed by Neurologist Dr Pastrana. PT NEEDS A NEW ELECTRIC WHEELCHAIR Assessment & Plan (11/23/2023 6:22 PM EDT): -I requested today rn staff to check status of wheelchair and cushion request per pt requested back in 04/2023-this will help pt to keep his independence as well to avoid worsening pressure ulcers and help healing of current one if able to change easier positions -advised RSV vaccine -Pt has Apt w PCP 12/15/2023 for chronic conditions Assessment & Plan (06/14/2023 1:31 PM EST): Pt had an accident at work and suffered a lumbar disc fracture T10 and L2 , he had a surgical intervention that resulted in this 1997. Pt has sensation on his feet but has a reno in place and changes his [place] once a month. Pt also has peripheral neuropathy he takes gabapentin 800 mg po BID and Baclofen 20 mg 2 tabs TID Prescribed by Neurologist Dr Pastrana. Assessment & Plan (02/10/2023 1:27 PM EDT): Pt had an accident at work and suffered a lumbar disc fracture T10 and L2 , he had a surgical intervention that resulted in this 1997. Pt has sensation on his feet but has a reno in place and changes his [place] once a month. Pt also has peripheral neuropathy he takes gabapentin 800 mg po BID and Baclofen 20 mg 2 tabs TID Prescribed by Neurologist Dr Pastrana. Pt is to call and schedule a follow up appointment Assessment & Plan (09/14/2022 1:56 PM EDT): Pt had an accident at work and suffered a lumbar disc fracture T10 and L2 , he had a surgical intervention that resulted in this 1997. Pt has sensation on his feet but has a reno in place and changes his [place] once a month. Pt also has peripheral neuropathy he takes gabapentin 800 mg po BID and Baclofen 20 mg 2 tabs TID Prescribed by Neurologist Dr Pastrana. Pt is to call and schedule a follow up appointment Assessment & Plan (05/11/2022 12:58 PM EST): Pt had an accident at work and suffered a lumbar disc fracture T10 and L2 , he had a surgical intervention that resulted in this 1997. Pt has sensation on his feet but has a reno in place and changes his [place] once a month. Pt also has peripheral neuropathy he takes gabapentin 800 mg po BID and Baclofen 20 mg 2 tabs BID, he is requesting to increase the dose to 2 tabs TID Patient has been seen in the past with Neurologist Dr Pastrana Essential hypertension 04/26/2018 Assessment & Plan (06/14/2024 1:17 PM EST): Patient here for a f/u currently controlled on a regimen of: Lisinopril 5 mg po daily. Given adequate blood pressure control will continue with current medical regimen. Most recent electrolytes, Bun and Creatinine done on: Lab Results Component Value Date NA 141 02/03/2024 NA 141 11/23/2023 K 4.8 02/03/2024 K 4.6 11/23/2023 CL 105 02/03/2024 CL 106 11/23/2023 BUN 16 02/03/2024 BUN 13 11/23/2023 CREATININE 0.61 02/03/2024 CREATININE 0.72 11/23/2023 were within normal limits. patient advised to adhere to a low sodium diet, encouraged about medication compliance, counseled about weight loss. Assessment & Plan (03/15/2024 1:31 PM EDT): Patient here for a f/u currently controlled on a regimen of: Lisinopril 5 mg po daily. Given adequate blood pressure control will continue with current medical regimen. Most recent electrolytes, Bun and Creatinine done on: 11/23/2023 were within normal limits. patient advised to adhere to a low sodium diet, encouraged about medication compliance, counseled about weight loss. Assessment & Plan (12/15/2023 1:59 PM EDT): Patient here for a f/u currently controlled on a regimen of: Lisinopril 5 mg po daily. Given adequate blood pressure control will continue with current medical regimen. Most recent electrolytes, Bun and Creatinine done on: 11/23/2023 were within normal limits. patient advised to adhere to a low sodium diet, encouraged about medication compliance, counseled about weight loss. Assessment & Plan (09/13/2023 1:38 PM EDT): Patient here for a f/u currently controlled on a regimen of: Lisinopril 5 mg po daily. Given adequate blood pressure control will continue with current medical regimen. Most recent electrolytes, Bun and Creatinine done on: 05/27/2023 were within normal limits. patient advised to adhere to a low sodium diet, encouraged about medication compliance, counseled about weight loss. Assessment & Plan (06/14/2023 1:21 PM EST): Patient here for a f/u currently controlled on a regimen of: Lisinopril 5 mg po daily. Given adequate blood pressure control will continue with current medical regimen. Most recent electrolytes, Bun and Creatinine done on: 05/27/2023 were within normal limits. patient advised to adhere to a low sodium diet, encouraged about medication compliance, counseled about weight loss. Assessment & Plan (02/10/2023 1:29 PM EDT): Patient here for a f/u currently controlled on a regimen of: Lisinopril 5 mg po daily Given adequate blood pressure control will continue with current medical regimen. Most recent electrolytes, Bun and Creatinine done on: 07/19/2022 were within normal limits. patient advised to adhere to a low sodium diet, encouraged about medication compliance, counseled about weight loss. Assessment & Plan (05/11/2022 12:59 PM EST): patient here for a f/u currently controlled on a regimen of: Lisinopril 5 mg po daily Given adequate blood pressure control will continue with current medical regimen. Most recent electrolytes, Bun and Creatinine done on: 01/04/2022 were within normal limits. patient advised to adhere to a low sodium diet, encouraged about medication compliance, counseled about weight loss. Type 2 diabetes mellitus without complication Assessment & Plan (06/14/2024 1:27 PM EST): Here for a f/u DM controlled He is on a regimen of: Levemir 20 units sq q PM and Metformin 1000 mg po BID Hgb A1c 06/14/2024: 7.1 Eye exam was last done on: 12/[address] Christianson Microalbumin checked on: 06/14/2023 was: 23 Pt on an RIDDHI inhibitor Foot check not done. Pt is paraplegic Pt reports compliance with Asa 81 mg po daily Plan: continue current regimen f/u in 4 months Pt advised to: adhere to diabetic diet check your blood sugars regularly check your feet on a daily basis Assessment & Plan (03/15/2024 1:42 PM EDT): Here for a f/u DM controlled He is on a regimen of: Levemir 20 units sq q PM and Metformin 1000 mg po BID Hgb A1c 03/15/2024: 5.6 Eye exam was last done on: 12/[address] Christianson Microalbumin checked on: 06/14/2023 was: 23 Pt on an RIDDHI inhibitor Foot check not done. Pt is paraplegic Pt reports compliance with Asa 81 mg po daily Plan: continue current regimen f/u in 4 months Pt advised to: adhere to diabetic diet check your blood sugars regularly check your feet on a daily basis Assessment & Plan (12/15/2023 1:57 PM EDT): Here for a f/u Pt's BG controlled He is on a regimen of: Levemir 20 units sq q PM and Metformin 1000 mg po BID Hgb A1c 09/13/2023: 6.7. A1c machine not working will send out to the lab Eye exam was last done on: 2020 by digital marketing specialist Microalbumin checked on: 01/04/2022 was: 0.4 Will repeat Pt on an RIDDHI inhibitor Foot check not done. Pt is paraplegic Pt reports compliance with Asa 81 mg po daily Plan: continue current regimen f/u in 4 months Pt advised to: adhere to diabetic diet check your blood sugars regularly check your feet on a daily basis Assessment & Plan (09/13/2023 1:40 PM EDT): Here for a f/u Pt's BG controlled He is on a regimen of: Levemir 20 units sq q PM and Metformin 1000 mg po BID Hgb A1c 09/13/2023: 6.7 Eye exam was last done on: 2020 by digital marketing specialist Microalbumin checked on: 01/04/2022 was: 0.4 Will repeat Pt on an RIDDHI inhibitor Foot check not done. Pt is paraplegic Pt reports compliance with Asa 81 mg po daily Plan: continue current regimen f/u in 4 months Pt advised to: adhere to diabetic diet check your blood sugars regularly check your feet on a daily basis Assessment & Plan (06/14/2023 2:23 PM EST): Here for a f/u Pt's BG controlled He is on a regimen of: Levemir 20 units sq q PM and Metformin 1000 mg po BID Hgb A1c 06/14/2023: 6.8 Eye exam was last done on: 2020 by digital marketing specialist Microalbumin checked on: 01/04/2022 was: 0.4 Will repeat Pt on an RIDDHI inhibitor Foot check not done. Pt is paraplegic Pt reports compliance with Asa 81 mg po daily Plan: continue current regimen f/u in 4 months Pt advised to: adhere to diabetic diet check your blood sugars regularly check your feet on a daily basis Assessment & Plan (02/10/2023 1:31 PM EDT): Here for a f/u Pt's BG controlled He is on a regimen of: Lantus 24 units sq q PM and Metformin 1000 mg po BID Hgb A1c 02/10/2023 was 6.6 Eye exam was last done on: 2020 by digital marketing specialist Microalbumin checked on: 01/04/2022 was: 0.4 Pt on an RIDDHI inhibitor Foot check not done. Pt is paraplegic Pt reports compliance with Asa 81 mg po daily Plan: continue current regimen f/u in 4 months Pt advised to: adhere to diabetic diet check your blood sugars regularly check your feet on a daily basis Assessment & Plan (05/11/2022 12:56 PM EST): Here for a f/u Pt's BG controlled He is on a regimen of: Lantus 24 units sq q PM and Metformin 1000 mg po BID Hgb A1c 01/26/2022 was 7.1 Eye exam was last done on: 2020 by digital marketing specialist Microalbumin checked on: 01/04/2022 was: 0.4 Pt on an RIDDHI inhibitor Foot check not done. Pt is paraplegic Pt reports compliance with Asa 81 mg po daily Plan: continue current regimen f/u in 4 months Pt advised to: adhere to diabetic diet check your blood sugars regularly check your feet on a daily basis Resolved Problems Problem Noted Date Diagnosed Date Resolved Date Fever with chills 05/11/2022 05/11/2022 Herpes labialis 06/19/2018 05/11/2022 Cough 06/19/2018 05/11/2022 Acute upper respiratory infection 06/19/2018 05/11/2022 Encounters Date Type Department Care Team Description 08/08/2024 Refill [facility] [address] [place], [place] [address] Edwina Mace MD 07/31/2024 Orders Only [facility] [address], [place] [address] Jose Baker MD Type 2 diabetes mellitus without complication, with long-term current use of insulin ([facility]) (Primary Dx) 07/19/2024 Refill [facility] [address], [place] [address] Lori Roberts DO Seasonal allergies 07/17/2024 Orders Only [facility] [address], [place] [address] Jose Baker MD Type 2 diabetes mellitus without complication, with long-term current use of insulin (CMS/HCC) (Primary Dx) 07/16/2024 Telephone [facility] [address], [place] [address] Jose Baker MD Referral 07/05/2024 Orders Only [facility] [address] [place] [address] Jose Baker MD Type 2 diabetes mellitus without complication, with long-term current use of insulin (CMS/HCC) (Primary Dx) 07/05/2024 Refill [facility] [address] [place] [address] Jose Baker MD Acute pain of both shoulders 07/04/2024 Telephone [facility] [address] [place] [address] Jose Baker MD Referral 06/15/[address] [address] Jose Baker MD Appointment Confirmation 06/14/2024 1:15 PM EST Office Visit [facility] [place] [address] Jose Baker MD Anemia in other chronic diseases classified elsewhere (Primary Dx); Type 2 diabetes mellitus without complication, with long-term current use of insulin (CMS/HCC); Hip osteomyelitis, left (CMS/HCC); Essential hypertension; Pressure injury of left buttock, unstageable (CMS/HCC); Paraplegia (CMS/HCC); Peripheral arterial disease (CMS/HCC) 06/14/2024 Telephone [facility] [place] [address] Jose Baker MD Call Back Request 06/14/[address] [address] Jose Baker MD Appointment Request 06/14/2024 Travel 06/05/2024 Refill [facility] [address] [place] [address] Jose Baker MD Hip osteomyelitis, left ([facility]/HCC) 06/01/[address] [address] Jose Baker MD Chart Prep from Last 3 Months Immunizations Name Administration Dates Next Due Hep B, adult 12/22/2021,10/11/2017,09/08/2017 Influenza High-dose Quadriva lent Preservative Free 01/21/2022,02/19/2021,03/21/2020 Influenza injectable quadriv alent IIV4 with preservative 03/27/2018 Influenza injectable quadriv alent preservative free 02/10/2023,02/26/2019 Influenza, High Dose Seasona l, Preservative Free 03/15/2024 Pfizer Covid-19 Vaccine 12+ 04/28/2023 Pneumococcal Conjugate PCV 20 12/22/2021 Pneumococcal Polysaccharide PPSV23 09/08/2017, TD (adult), 2 Lf tetanus tox oid, preservative free, adsorbed 03/25/2018 Tdap 09/08/2017 Zoster, Recombinant 03/09/2022,01/05/2022 Zoster, live 09/09/2017 Social History Tobacco Use Types Packs/Day Years Used Date Smoking Tobacco: Never Passive Smoke Exposure: Never Smokeless Tobacco: Never Tobacco Cessation:Counseling Given: Not Answered Alcohol Use Standard Drinks/Week Comments Never 0 [...] not to disclose 2021 10:20 AM EDT Last Filed Vital Signs Vital Sign Reading Time Taken Comments Blood Pressure 119/69 06/14/2024 1:04 PM EST Pulse 81 06/14/2024 1:04 PM EST Temperature 35.7 ??C (96.2 ??F) 06/14/2024 1:04 PM ES T Respiratory Rate 20 06/14/2024 1:04 PM EST Oxygen Saturation 99% 06/14/2024 1:04 PM EST Inhaled Oxygen Concentration - - Weight 88.5 kg (195 lb 3.2 oz) 06/14/2024 1:04 P M EST Height 188 cm (6' 2 ) 06/14/2024 1:04 PM EST Body Mass Index 25.06 06/14/2024 1:04 PM EST Plan of Treatment Upcoming Encounters Date Type Department Care Team (Late st Contact Info) Description 10/04/2024 1:00 PM EDT Office Visit [facility] [address] [place] [address] Jose Baker MD [address] [place] [address] Health Maintenance Due Date Last Done Comments CT Colonography 1955 Colonoscopy 1955 Colorectal Cancer Screening 1955 FIT DNA/Cologuard 1955 FIT 1955 FOBT 1955 Sigmoidoscopy 1955 Diabetes: Foot Exam 1965 Eye Exam 1965 Hepatitis C Screening 1973 RSV Patients and Patients Aged 60 years or older (1 - Risk 60-74 years 1-dose series) 2015 COVID-19 Vaccine ( season) 2024 04/28/2023, 12/22/2021, 08/04/2021, Additional history exists SDOH Screening 02/11/2024 02/10/2023 Diabetes: Hemoglobin A1C 09/12/2024 025, 03/15/2024, 12/15/2023, Additional history exists Depression Screening 11/22/2024 11/23/2023, 11/23/19 24 Lipid Panel 11/22/2024 11/23/2023, 05/16, 01/04/2022, Additional history exists Alcohol/Substance Use Screening 03/15/2025 03/15/2024 Tobacco Screening 06/14/2025 06/14/2024 DTaP/Tdap/Td Vaccines (3 - Td or Tdap) 03/25/2028 03/25/2018, 09/08/2017 Hepatitis B Vaccines Completed 12/22/2021, 10/11/2017, 09/08/2017 [...] patient's age to complete this topic Meningococcal Vaccine Aged Out No paul azael eligible based on patient's age to complete this topic RSV under 20 months Aged Out No longe r eligible based on patient's age to complete this topic Rotavirus Vaccines Aged Out No longer eligible based on patient's age to complete this topic Procedures Procedure Name Priority Date/Time Associated Diagnosis Comments POCT GLYCATED HEMOGLOBIN, TOTAL Routine 06/14/2024 1:22 PM EST Type 2 diabetes mellitus without complication, with long-term current use of insulin ([facility]) POCT GLUCOSE Routine 06/14/2024 1:18 PM EST Type 2 diabetes mellitus without complication, with long-term current use of insulin ([facility]) LIPID PANEL, STANDARD Routine 11/23/2023 10:25 AM EDT Type 2 diabetes mellitus without complication, with long-term current use of insulin ([facility]) from Last 3 Months or Most Recently Relevant to Health Maintenance Results * (ABNORMAL) POCT HGB A1C (06/14/2024 1:22 PM EST) Pathologist [facility] Hemoglobin A1C 7.1(A) 4.0 - 6.0 % QC Media Lot # [id number] Lot# Expiration Date Blood 06/14/2024 1:22 PM EST Jose Carbajal MD POINT OF CARE TEST EN TER/EDIT ORDERABLES Final Result * (ABNORMAL) POCT Glucose (06/14/2024 1:18 PM EST) Pathologist [facility] Glucose Blood, POC 216(A) 60 - 200 mg/dL QC Media Lot # [id number] Lot# Expiration Date Blood Capillary blood specimen / Unknown 06/14/2024 1:18 PM EST Jose Carbajal MD POINT OF CARE TEST EN TER/EDIT ORDERABLES Final Result * (ABNORMAL) Lipid Panel, Standard (11/23/2023 10:25 AM EDT) Triglycerides 48 <150 mg/dL [facility] Comment:Desirable Triglyceri de: less than 150 mg/dLBorderline High Triglyceride 150-199 mg/dLHigh Triglyceride: 200-499 mg/dLVery High Triglyceride: greater than or equal to 5OO mg/dL Cholesterol 101 <200 mg/dL [facility] Comment:Desirable Cholestero l: less than 200 mg/dLBorderline High Cholesterol: 200-239 mg/dLHigh Cholesterol: greater than 239 mg/dL LDL Cholesterol Calculated 62 <100 mg/dL [facility] Comment:Desirable LDL: less than 100 mg/dLNear Optimal/Above Optimal LDL: 110- 129 mg/dLBorderline High LDL: 130-159 mg/dLHigh LDL: 160-189 mg/dLVery High LDL: greater than or equal to 190 mg/dL HDL Cholesterol 30(L) >40 mg/dL [facility] Comment:Desirable HDL: great er than 40 mg/dL Note: This HDL assay may give artificially low results in patients with liver disease. Blood Venous blood specimen / Unknown 11/23/2023 10:25 AM EDT 11/23/2023 12:59 PM EDT us Jose Carbajal MD LAB BLOOD ORDERABLES Final Result [facility] [address] [place] [address] [phone] from Last 3 Months or Most Recently Relevant to Health Maintenance Insurance [address] [place] [address] [facility] STANDARD MEDICARE [address] [place] [address] [address] [place] [address] [address] [place] [address] Care Teams Talent Acquisition Associate Relationship Specialty Start Date End Date Jose Baker MD [address] [place] [phone] PCP - General Internal Medicine 03/22/19August [address] [place] [address] [address] [place] [address] Gastroenterology [facility]24 [facility]
[2024-08-17 13:53] LABS: Creatinine Urine 29.08 mg/dL; Microalbum/Creatinine Ratio Ur 61.8 ug/mg cr (<30)
[2024-08-17 14:21] LABS: Alanine Aminotransferase 7 U/L (0-40); Albumin Level 3.3 g/dL (3.5-5.0); Alkaline Phosphatase 85 U/L (39-117); Anion Gap 11 (12-20); Aspartate Amino Transferase 28 U/L (5-37); Bilirubin Total 0.2 mg/dL (0.0-1.0); Blood Urea Nitrogen 15 mg/dL (9-16); Calcium 9.2 mg/dL (8.4-10.2); Carbon Dioxide 29 mmol/L (22-29); Chloride 106 mmol/L (96-108); Cholesterol 109 mg/dL (<200); Estimated Glomerular Filt Rate > 60; Glucose Random 85 mg/dL (60-115); HDL Cholesterol 34 mg/dL (>40); LDL Cholesterol Calculated 66 mg/dL (<100); Potassium 4.7 mmol/L (3.3-5.1); Sodium 141 mmol/L (135-145); Total Protein 8.4 g/dL (6.5-8.0); Triglycerides 46 mg/dL (<150)
== END 2024-08-17 11:15 | disposition home or self-care (01) ==
LOC: HO.HHCL 11:14
PROVIDERS: Visit Provider Internal Medicine
DX: E11.9 Type 2 diabetes mellitus without complications (principal); Z79.4 Long term (current) use of insulin
CPT/HCPCS: 36415; 80053; 80061; 82043; 82570

== ENCOUNTER 2024-09-07 11:50 | Outpatient (AMB) | payer MEDICARE, MEDICAID, SELFPAY ==
--- NOTE | 2024-09-07 12:04 | A.OFFVIS_ITS ---
Vital Signs 3 09/07/24 12:36 09/07/24 12:37 Height 6 ft 2 in 6 ft 2 in BP 83/41 L Blood Pressure Location Lt brachial Position Sitting Pulse 75 Pulse Oximetry (%) 97 Oxygen Delivery Method Room Air Comment wheel chair Intake Visit Reasons: Anemia follow up last seen on 01/2022 Intake Note: Patient follow up for Anemia kvng was 01/2022. Patient cc: back pain due his ulcer, denies any GI issues for today. Practical Nurse Required: Yes Accompanied by: Self / Same As Patient Allergies levofloxacin [From LEVAQUIN] Allergy (Intermediate, Verified 09/07/24 12:28) HIVES, SKIN RASH shellfish derived Allergy (Intermediate, Verified 09/07/24 12:28) itching throat HPI HPI Anemia follow up last seen on 01/2022: Details: Assessment & Plan (1) Colon cancer screening: ?Comment: 08/2020 scope: PLAN: Given + cologard may have been false positive Would do FIT testing q 6 months Repeat colon in no longer than? years due to poor prep. Follow H&H. * BIOPSY Rectum, lower, polypectomy:? Hyperplastic mucosal polyp. ?Code(s): Z12.11 - Encounter for screening for malignant neoplasm of colon ?Plan: [place] [facility] #[id number], Dl The patient was seen by Dr. Busby after being hospitalized for bleeding decubitus ulcer.? At that time he was transfused 2 units of packed red blood cells and it was recommended that we consider upper endoscopy to be thorough in terms of his anemia. He says they are working on his rectal pressure ulcer and it is getting better, but it is a slow process. I explain to him that it was suggested that we do an upper endoscopy in terms of being thorough regarding his anemia. The colonoscopy did not reveal any TA, but he was not completely clear so we need to repeat the process in n or more than 3? years. He says he is on a wound vac and this is sucking out bloody stuff all of the time. This is another likely contributing cause to his anemia all by itself. I will see him after the EGD. (2) Anemia: ?Code(s): D64.9 - Anemia, unspecified ? ? ? Medications:?New ferrous sulfate 325 mg? PO DAILY 30 days 30 tabs 6RF D64 .9 - Anemia, unspecified ? EGD 12/28/21 Findings: Larynx:? Normal Esophagus: GE junction at 42 cms. Two 1-2 cms tongues of suspected Diego's from 40 to 42 cms - biopsied Wats-3D brushings x 1 were taken and sent for processing. ? No discrete mass high definition white light or NBI. No esophagitis. Stomach: Mild gastric erythema. Biopsies obtained during last EGD were negative for H pylori.? Grade 2 flap valve on retroflexed examination of the cardia. Duodenum: Normal bulb and descending duodenum Intervention: Biopsies as noted above Impression and Post Procedure Diagnosis: Endoscopy Findings: ESOPHAGUS: GE junction at 42 cms. Two 1-2 cms tongues of suspected Diego's from 40 to 42 cms - biopsied Wats-3D brushings x 1 were taken and sent for processing. ? No discrete mass high definition white light or NBI. Plan: Await pathology results * BIOPSY Received: 12/28/21 Diagnosis GE junction, biopsy:? Cardia and corpus-type mucosa with mild chronic inflammation; negative for intestinal metaplasia, dysplasia, and carcinoma. Laboratory Tests 06/25/24 08/17/24 13:58 11:17 WBC 6.2 RBC 4.02 L Hgb 10.1 L Hct 33.8 L MCV 84.1 MCH 25.1 L Plt Count 287 Estimated GFR > 60 Total Bilirubin 0.2 AST 28 ALT 7 Alkaline Phosphatase 85 TODAY'S VISIT [place] [facility] #V LIve I really don't know why he is referred back to us, and he does not know either. The referral just says he hasn't been seen in a while. But we do not manage his GERD. He was last seen for anemia, which continues, but there has never been an GI source identified. Most likely he has anemia r/t chronic anticoagulation therapy and chronic seeping wounds that, per his report keep opening up on his feet and coccyx. He may benefit from a colonoscopy, since he was not completely clear when we did the exam in 2020. At that time there was a hyperplastic polyps only. He will also be seeing hematology soon about his anemia. He denies seeing an blood in stools. He has a hx of PE and is on Eliquis but no breathing problems and no cardiac problems. There are no prior problems with anesthesia and sedation. No ID problems. hE PLAYS GUITAR AND SINGS!! [facility] Medical History (Updated 09/07/24 @ 13:10 by ALEXSANDER Moseley) Right foot infection (Unknown) Osteomyelitis of left foot Osteomyelitis Wound cellulitis Osteomyelitis Positive colorectal cancer screening using Cologuard test Osteomyelitis History of blood transfusion On anticoagulant therapy Iron deficiency anemia Decubitus ulcer of right ischial tuberosity region Diabetes Hx pulmonary embolism HTN (hypertension) Paraplegia Surgical History Hx of skin graft Hx of endoscopy Status post debridement Hx of colonoscopy Hx of foot surgery History of spinal surgery Family History Father Mother Brother No problems noted. Sister No problems noted. Sister No problems noted. Sister No problems noted. Son No problems noted. Son No problems noted. Son No problems noted. Son No problems noted. Daughter No problems noted. Daughter No problems noted. Social History Household Members: Family Household Members Other:: roommate Housing: House Are you a primary tire care manager to a significant other at home: No Do you presently have visiting nurse or other home services: Yes Alcohol intake: former Comment: Paraplegic Patient Tobacco Use Status: Never used Tobacco Second Hand Smoke Exposure: No Advance Directives Date on File: 03/10/21 service: No Current occupational status: disabled Review of Systems Const Denies fatigue, Denies fever(s), Denies night sweats, Denies poor appetite, Reports weakness and Denies weight loss Eyes Details: GLASSES Reports requires corrective lenses ENT Reports Normal hearing present, Denies dental pain, Denies dysphagia, Denies hearing loss, Denies mouth pain, Denies odynophagia, Denies throat swelling, Denies tongue swelling and Reports other (Dentition adequate) Card Reports no additional complaints Resp Reports no additional complaints GI Details: Denies abdominal pain, Denies melena, Denies bloating, Denies hematochezia, Denies constipation, Denies GI cramping, Denies dysphagia, Denies excessive flatus, Denies early satiety, Denies heartburn, Denies diarrhea, Denies nausea, Denies odynophagia, Denies vomiting and Denies hematemesis Musc Reports abnormal gait Skin/Breast Denies pruritus, Denies lesions, Reports non-healing lesions, Denies rash and Denies jaundice Neuro Reports Normal hearing present, Denies Abnormal speech present, Reports abnormal gait and Reports weakness Endo Denies fatigue Aller/Immun Denies throat swelling and Denies tongue swelling Physical Exam Vital Signs: Last Vital Signs Pulse 75 09/07/24 12:37 BP 83/41 L 09/07/24 12:37 Pulse Ox 97 09/07/24 12:37 Oxygen Delivery Method Room Air 09/07/24 12:37 Const General: cooperative, no acute distress, well developed and well groomed Nutritional Appearance: average body habitus and well nourished Orientation/consciousness: oriented to person, oriented to place and oriented to time Limitations: language barrier and wheelchair HEENT Head: Yes normocephalic and Yes atraumatic Eyes General: appearance normal, both eyes and all related structures Pupils: Equal, round and reactive pupils present Neck Neck: Yes normal visual inspection and Yes no lymphadenopathy Thyroid: Thyroid normal Resp Effort & Inspection: normal respiratory effort and able to speak in complete sentences Auscultation: clear to auscultation bilaterally Cardio Rate: regular rate Rhythm: regular rhythm Heart sounds: Normal, physiologic split S2 sound present Peripheral pulses: radial pulses present and posterior tibial pulses present GI Inspection: No distended, No Abdominal panniculus present and Yes obesity Palpation (GI): Soft to palpation, nontender, no guarding, not rigid and No hepatosplenomegaly present Percussion: Yes normal to percussion Auscultation: normal bowel sounds Rectal Exam - Male: Yes deferred Abdomen image: 2 1. SURGICAL SCAR 2. RASH AND LARGE SQUARE BANDAGE SURROUNDING SKIN SOME VITILIGO Skin General skin exam: no rashes or lesions noted, turgor normal, skin not dry, no jaundice, No spider nevi and no striae Rashes: no rashes Nails: normal Neuro General: oriented to person, oriented to place and oriented to time Cranial nerves: Yes Equal, round and reactive pupils present and Yes Normal hearing present Speech: No Abnormal speech present Extrem General: No clubbing, No cyanosis and No edema Psych Appearance: grossly normal and well kempt Mental Status: mental status grossly normal Speech and movement: Normal speech and movement present Affect: normal affect Attitude: cooperative Thought process: Normal thought process present and not confabulating Thought content: Normal thought content present Insight: Limited insight present (Psych) Judgement: Limited judgement present (Psych) Assessment & Plan Assessment & Plan (1) GERD (gastroesophageal reflux disease): Code(s): K21.9 - Gastro-esophageal reflux disease without esophagitis Category: Medical (2) Anemia: Code(s): D64.9 - Anemia, unspecified Category: Medical (3) Paraplegia: Code(s): G82.20 - Paraplegia, unspecified Category: Medical (4) On anticoagulant therapy: Comment: Eliquis Code(s): 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 The referral just says he hasn't been seen in a while. But we do not manage his GERD. He was last seen for anemia, which continues, but there has never been an GI source identified. Most likely he has anemia r/t chronic anticoagulation therapy and chronic seeping wounds that, per his report keep opening up on his feet and coccyx. He may benefit from a colonoscopy, since he was not completely clear when we did the exam in 2020. At that time there was a hyperplastic polyps only. He will also be seeing hematology soon about his anemia. He denies seeing an blood in stools. He has a hx of PE and is on Eliquis but no breathing problems and no cardiac problems. There are no prior problems with anesthesia and sedation. No ID problems. hE PLAYS GUITAR AND SINGS!! 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
[2024-09-07 12:37] VITALS: BP 83/41; PULSE 75; O2SAT 97
--- OUTSIDE RECORDS SUMMARY | 2024-09-07 12:42 | XMS_ITS | Clinical Summary ---
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, left ([facility] V24, [facility] V28) 01/02/2021 Social History Tobacco Use Types Packs/Day [...] Care Team (Late st Contact Info) Description 09/17/2024 2:45 PM EDT Consult Orthopedic Surgery - [place] [id number] [phone] Irwin Caraballo, DPM [address] [address] Health Maintenance Due Date Last Done Comments [...] age to complete this topic Meningococcal B Vaccine Aged Out No l onger eligible based on patient's age to complete this topic RSV Immunization Patients Under 20 months Aged Out No longer eligible based on patient's age to complete this topic Varicella Vaccines Aged Out No longer eligible based on patient's age to complete this topic Insurance , [address] [id number] MEDICAID - [place] MEDICARE Care Teams Cotton Cleaner Relationship Specialty Start Date End Date Jose Grayson MD [address] [place] [address] [place] [address] PCP - General Internal Medicine 04/08/21
== END 2024-09-07 13:16 | disposition home or self-care (01) ==
LOC: HO.HGI 11:51
PROVIDERS: PCP Internal Medicine; Visit Provider Nurse Practitioner
DX: D64.9 Anemia, unspecified (principal); K21.9 Gastro-esophageal reflux disease without esophagitis; Z79.01 Long term (current) use of anticoagulants
CPT/HCPCS: 99213

== ENCOUNTER → 2024-09-07 11:50 | Outpatient (BNVA) | payer MEDICARE, MEDICAID, SELFPAY | PROVIDERS: PCP Internal Medicine; Visit Provider Nurse Practitioner | DX: Z01.818 Encounter for other preprocedural examination (principal); D64.9 Anemia, unspecified; K21.9 Gastro-esophageal reflux disease without esophagitis; G82.20 Paraplegia, unspecified; Z79.01 Long term (current) use of anticoagulants | CPT/HCPCS: 99212 ==

== ENCOUNTER 2024-11-14 13:00 | Outpatient (RCR) | payer MEDICARE, MEDICAID, SELFPAY ==
[2024-10-05 14:30] VITALS: BP 120/62; PULSE 86; RESP 16; TEMP 36.7; O2SAT 98
[2024-10-12 14:11] VITALS: BP 103/59; PULSE 86; RESP 16; TEMP 36.6; O2SAT 97
[2024-10-19 12:38] VITALS: BP 95/56; PULSE 94; RESP 16; TEMP 37.1; O2SAT 97
[2024-10-26 13:28] VITALS: BP 109/57; PULSE 88; RESP 16; TEMP 36.1; O2SAT 97
[2024-11-09 12:57] VITALS: BP 113/62; PULSE 84; RESP 16; TEMP 36.7; O2SAT 98
[2024-11-14 12:57] VITALS: BP 105/60; PULSE 83; RESP 16; TEMP 36.7; O2SAT 98
== END 2024-11-14 13:46 | disposition home or self-care (01) ==
LOC: HO.INF 13:00
PROVIDERS: Visit Provider Internal Medicine
DX: D64.9 Anemia, unspecified (principal)
CPT/HCPCS: 96365; J1756

== ENCOUNTER 2024-12-12 14:32 | Outpatient (REF) | payer MEDICARE, MEDICAID, SELFPAY ==
--- NOTE | ~2024-12-12 | CT_ITS ---
EXAMINATION: CT ABDOMEN AND PELVIS WITH CONTRAST CLINICAL INFORMATION: Unintentional weight loss and anemia COMPARISON: March 02 2021 DLP: 659 mGY*cm TECHNIQUE: Multidetector volumetric images were obtained from the superior aspect of the liver through the pubic symphysis following administration 85 mL of Omnipaque 350 intravenous contrast. Sagittal and coronal reformatted images were obtained on the technologist's workstation. Oral contrast: No This CT examination was performed using dose optimization techniques as appropriate, variously including the following: *Automated exposure control *Adjustment of mA and/or kV according to patient size (this includes techniques or standardized protocols for targeted exams where dose is matched to indication/reason for exam; i.e. extremities or head) *Use of iterative reconstruction technique FINDINGS: LUNG BASES: The visualized lung bases are unremarkable. LIVER, GALLBLADDER, AND BILIARY TREE: The liver is normal in size, shape, and attenuation. No focal hepatic lesion or biliary ductal dilatation is present. The gallbladder is unremarkable with no evidence of radiopaque gallstones, gallbladder wall thickening, or obvious pericholecystic inflammatory changes. PANCREAS: Unremarkable. SPLEEN: Unremarkable. ADRENAL GLANDS: Unremarkable. KIDNEYS AND URETERS: 2 hypodensities in the lower pole right kidney are stable and likely represent benign simple renal cysts. BLADDER: Decompressed by a Juarez catheter. GASTROINTESTINAL TRACT: Moderate stool is again noted throughout the colon. There is a diverticulum on the right that previously contained adipose tissue. Currently it contains a short loop of ileum. There is no obstruction. A normal appendix is identified. LYMPH NODES: Left external iliac and common femoral lymph nodes are mildly enlarged, similar to the prior examination. They measure up to 1.4 cm short axis. VASCULAR: Mild calcifications. PELVIC VISCERA: Unremarkable. OSSEOUS STRUCTURES: There are extensive syndesmophytes and bony bridging across the facets There are moderate degenerative changes of the SI joints. There is severe osteoarthritis of the right hip and moderate osteoarthritis of the left. There is soft tissue ulceration in the left inferior gluteal region extending to the issue. The ischium appears sclerotic and there is heterotopic ossification extending anteriorly. CT/CT abdomen pelvis w IV con IMPRESSION: There are new sclerotic changes in the left ischium adjacent to an area of soft tissue ulceration raising concern for chronic osteomyelitis. Left inguinal adenopathy. This could be related to neoplasm, infection, or inflammatory changes. Changes in the spine are consistent with ankylosing spondylitis. Severe right and moderate left hip osteoarthritis. Direct inguinal hernia on the right contains a short segment of ileum. There is no obstruction. Moderate stool is present throughout the colon, similar to the prior. Fleischner guidelines were followed. Electronically signed by: Brett Longoria MD 12/12/2024 04:57 PM EDT RP
--- NOTE | ~2024-12-12 | CT_ITS ---
EXAMINATION: CT CHEST WITH CONTRAST CLINICAL INFORMATION: Unintentional weight loss COMPARISON: None available. TECHNIQUE: Multidetector volumetric CT imaging of the chest was obtained after the administration of 85 mL of Omnipaque 350 intravenous contrast without immediate adverse reactions. Axial MIP volume rendering provided. Sagittal and coronal reformatted images were obtained. This CT examination was performed using dose optimization techniques as appropriate, variously including the following: *Automated exposure control *Adjustment of mA and/or kV according to patient size (this includes techniques or standardized protocols for targeted exams where dose is matched to indication/reason for exam; i.e. extremities or head) *Use of iterative reconstruction technique DLP: 659 mGY*cm FINDINGS: LUNGS: Image 85/[address] #4: There is a 2 mm solid nodule contacting moderate fissure in the right upper lobe. 115/160:8 mm groundglass density is only 1 mm thick superior to inferior. 106/160:14 mm vague groundglass density is present in the lingula. MEDIASTINUM: There is a 14 mm low attenuating lesion in the left thyroid gland. PLEURA: There is focal pleural thickening in the posterior medial left lung base. This is just deep to an area where the posterior left 10th rib has been resected. AXILLA: No lymphadenopathy. UPPER ABDOMEN: Unremarkable OSSEOUS STRUCTURES: Syndesmophytes are present throughout the mid and lower thoracic spine. There is osseous fusion across the facet joints. Spinous processes have been resected. CT/CT chest w IV con IMPRESSION: Small pulmonary nodules and groundglass densities. Fleischner Society recommends CT at 6-12 months to confirm persistence, then CT every 2 years until 5 years. Left thyroid gland nodule or cyst. Follow-up with ultrasound to characterize. Changes in thoracic spine are most consistent with ankylosing spondylitis. There is focal pleural thickening in the posterior base of the left lung adjacent to an area where the 10th rib was resected. Fleischner guidelines were followed. Electronically signed by: Brett Longoria MD 12/12/2024 05:09 PM EDT
--- OUTSIDE RECORDS SUMMARY | 2024-12-12 15:13 | XMS_ITS | Encounter Summary ---
Author Organization [employer] Address [address] [place] [address] [address] [place] [address] Care Team Providers Care Export Freight Manager Name Role Phone Jose Baker MD Primary Care Provide r August Unavailable Reason for Visit * Reason Onset Date Comments Paperwork/Forms 03/31/2023 Encounter Details Date Type Department Care Team ([facility] Contact Info) Description 03/31/2023 Telephone [facility] [address] [place], [place] [phone] Jose Baker MD [address] [place], [place] [phone] Paperwork/Forms Social History Tobacco Use Types Packs/Day [...] Care Team (Late st Contact Info) Description 01/10/2025 2:00 PM EDT Office Visit [facility] [address] [place] [address] Jose Baker MD [address] [place] [address] documented as of this encounter Visit Diagnoses Not on filedocumented in this encounter Additional Health Concerns Assessment Noted Time PHQ-9 Depression Total Score: 0 02/11/20 23 1:23 PM EDT documented as of this encounter Care Teams Export Freight Manager Relationship Specialty Start Date End Date Jose Baker MD [address] [place] [address] PCP - General Internal Medicine 03/22/[address] [place] [address] [address] [place] [address] Gastroenterology 06/14/24 Jourdan DYE 09/10/23 documented as of this encounter
[2024-12-12] MEDS: iohexoL 350 MG/ML 100 ML INFUS..BTL IV (16:39)
== END 2024-12-12 14:33 | disposition home or self-care (01) ==
LOC: HO.CT 14:32
PROVIDERS: PCP Internal Medicine; Visit Provider Internal Medicine
DX: D64.9 Anemia, unspecified (principal); R63.4 Abnormal weight loss
CPT/HCPCS: 71260; 74177; Q9967

== ENCOUNTER → 2024-12-12 14:34 | Outpatient (BNV) | payer MEDICARE, MEDICAID, SELFPAY | PROVIDERS: PCP Internal Medicine; Visit Provider Radiology Diagnostic Radiology | DX: N28.1 Cyst of kidney, acquired (principal); R91.1 Solitary pulmonary nodule | CPT/HCPCS: 71260; 74177 ==

== ENCOUNTER 2025-01-10 15:59 | Inpatient (IN) | payer MEDICARE, MEDICAID, SELFPAY ==
[2025-01-10] VITALS (7 sets, daily range): BP systolic 90–142; BP diastolic 50–84; PULSE 84–103; RESP 16–18; TEMP 37.2–37.3; O2SAT 88–98; BMI 26.7
--- NOTE | ~2025-01-10 | US_ITS ---
EXAMINATION: US ABDOMEN LIMITED HISTORY: hydrops GB on imaging TECHNIQUE: Real-time grayscale ultrasound imaging of the gallbladder was performed and images were reviewed. COMPARISON: Correlation is made with a chest CT dated 01/10/2025. FINDINGS: Gallbladder is markedly distended. There is no evidence of cholelithiasis. There is no wall thickening or pericholecystic fluid. There is no sonographic Urias sign. The common bile duct is normal in caliber measuring 6-7 mm in diameter. US/US abdomen limited IMPRESSION: Distended gallbladder without evidence of cholelithiasis. Electronically signed by: Broderick Flores MD 01/11/2025 02:49 PM EDT
--- NOTE | ~2025-01-10 | XR_ITS ---
EXAMINATION: XR CHEST CLINICAL INFORMATION: diminished BS R side, hypoxia COMPARISON: 05/29/2023. TECHNIQUE: AP view of the chest was obtained. FINDINGS: Mildly elevated right hemidiaphragm, stable. The cardiac, hilar, and mediastinal contours are normal. The lungs are clear bilaterally. No pneumothorax or effusion. No focal osseous or soft tissue abnormality. XR/XR chest 1V IMPRESSION: No active pulmonary disease. Electronically signed by: Twan Frye MD 01/10/2025 04:55 PM EDT
--- NOTE | ~2025-01-10 | CT_ITS ---
CLINICAL HISTORY: hypoxia, CT angiogram chest/pulmonary arteries with contrast Multiplanar reconstructions and MIPS Comparison: 12/12/2024 03:03 PM EDT Findings: No filling defects are noted to suggest pulmonary embolus. Main pulmonary artery normal in caliber. Thoracic aorta normal caliber without dissection. Heart size normal. Great vessel origins patent. No coronary calcifications. No significant focal parenchymal abnormalities. No significant mediastinal or hilar adenopathy. No free pleural fluid. Degenerative change throughout the spine. No acute bony abnormality noted. Possible hydropic gallbladder, partially visualized. Ultrasound may be of value. Impression: No evidence of pulmonary embolus Possible hydropic gallbladder, consider ultrasound This document has been electronically signed by: Can Marti MD on 01/10/2025 19:57:46
--- OUTSIDE RECORDS SUMMARY | 2025-01-10 14:40 | XMS_ITS | Encounter Summary ---
Author Organization [employer] Address [address] [place] [address] [address] [place] [address] Care Team Providers Care Referral Nurse Name Role Phone Jose Baker MD Primary Care Provide r August Unavailable Encounter Details Date Type Department Care Team (Late st Contact Info) Description 01/10/2025 2:40 PM EDT Office Visit [facility] [address], [place] [phone] Wheezing (Primary Dx); Dyspnea, unspecified type Social History Tobacco Use Types Packs/Day Years [...] housing situation today? I have he marquez 09/27/[address] you li ve. Do you have problems with any of the following? None of the above 09/27/2024 Food Insecurity Answer Date Recorded Within the past 12 months, y ou worried that your food would run out before you got money to buy more: Never True 09/27/2024 Within the past 12 months,th e food you bought just didn't last and you didn't have enough money to get more: Never True Transportation Answer Date Recorded In the past 12 months, has l ack of transportation kept you from medical appts, meetings, work or from getting things needed for daily living? No 09/27/2024 Utilities Answer Date Recorded In the past 12 months, has t he electric, gas, oil or water company threatened to shut off services in your home? No 09/27/2024 Depression Answer Date Recorded Patient Health Questionnaire-2 Score 0 11/23/2023 Internet Access Answer Date Recorded Internet Access Q1 Yes 09/27/2024 Internet Access Q2 Not on file 09/27/2024 Sex and Gender Information Value Date Recorded Sex Assigned at Male 03/15/2022 10:20 AM EDT Legal Sex Male 10:20 AM EDT Gender Identity Male 03/15/2022 10:20 AM EDT Sexual Orientation Choose not to disclose 2021 10:20 AM EDT documented as of this encounter Last Filed Vital Signs Vital Sign Reading Time Taken Comments Blood Pressure 111/66 01/10/2025 2:47 PM EDT Pulse 99 01/10/2025 2:47 PM EDT Temperature 36.7 C (98.1 F) 01/10/2025 2:47 PM EDT Respiratory Rate - - Oxygen Saturation 95% 01/10/2025 2:49 PM EDT 6 L Inhaled Oxygen Concentration - - Weight - - Height - - Body Mass Index - - documented in this encounter Plan of Treatment Upcoming Encounters Date Type Department Care Team (Late st Contact Info) Description 02/19/2025 1:00 PM EDT Office Visit [facility] [address] [place] [address] Jose Baker MD [address] [place] [address] documented as of this encounter Procedures Procedure Name Priority Date/Time Associated Diagnosis Comments POCT INFLUENZA A (ID NOW RAPID MOLECULAR) Routine 01/10/2025 3:12 PM EDT Wheezing POCT INFLUENZA B (ID NOW RAPID MOLECULAR) Routine 01/10/2025 3:11 PM EDT Wheezing POCT RAPID COVID ANTIGEN Routine 01/10/2025 3:02 PM EDT Wheezing documented in this encounter Results * Influenza A (ID NOW Rapid Molecular) (01/10/2025 3:12 PM EDT) Pathologist [facility] Influenza A Negative Negative, Indeterminate [facility] Swab 01/10/2025 3:12 PM EDT us Tatiana Lopez MD POINT OF CARE TEST ENTER/E DIT ORDERABLES Final Result Performing Organization Address City/[facility]/ZIP Co de Phone Number [facility] [address] [place] [phone] * Influenza B (ID NOW Rapid Molecular) (01/10/2025 3:11 PM EDT) [facility] Influenza B Negative Negative, Indeterminate [facility] Swab 01/10/2025 3:11 PM EDT us Tatiana Lopez MD POINT OF CARE TEST ENTER/E DIT ORDERABLES Final Result Performing Organization Address City/[facility] Co de Phone Number [facility] [address] [place] [phone] * POCT Rapid COVID Ag (01/10/2025 3:02 PM EDT) [facility] Rapid COVID Ag Negative Swab 01/10/2025 3:02 PM EDT us Tatiana Lopez MD POINT OF CARE TEST ENTER/E DIT ORDERABLES Final Result documented in this encounter Visit Diagnoses Diagnosis Wheezing- Primary Dyspnea, unspecified type documented in this encounter Administered Medications Inactive Administered Medications - up to 3 most recent administrations Medication Order MAR Action Action Date Dose Rate Site ipratropium-albuterol (Duo-Neb) 0.5-2.5 mg/3 mL nebulizer solution 3 mg 3 mg, Nebulization, Once, On [place] 01/10/25 at 1500, For 1 doseIndications:Wheezing,Dyspnea, unspecified type Given 01/10/2025 3:00 PM EDT 3 mg documented in this encounter Additional Health Concerns Assessment Noted Time PHQ-9 Depression Total Score: 0 11/23/19 9:34 AM EDT documented as of this encounter Care Teams Referral Nurse Relationship Specialty Start Date End Date Jose Baker MD [address] [place] [address] PCP - General Internal Medicine 03/22/19[address] [place] [address] Gastroenterology 06/14/24 [facility] 09/10/23 documented as of this encounter
[2025-01-10] MEDS: Albuterol/Iprat 2.5/0.5MG 3 ML AMPUL.NEB INHALE (16:15)
--- NOTE | 2025-01-10 16:28 | ECG_ITS ---
Test Reason : SOB Blood Pressure : */* mmHG Vent. Rate : 85 BPM Atrial Rate : 85 BPM P-R Int : 192 ms QRS Dur : 90 ms QT Int : 328 ms P-R-T Axes : 73 0 46 degrees QTcB Int : 390 ms Normal sinus rhythm Normal ECG When compared with ECG of 02-Mar-2021 17:45, No significant change was found Referred By: Efrem Castañeda Electronically Signed By: ERIKA ZELAYA
--- NOTE | 2025-01-10 16:30 | ED_ITS ---
HPI - SOB/Dyspnea General Chief Complaint: Dyspnea Stated Complaint: SOB WHEEZING Time Seen by Provider: 01/10/25 16:24 History of Present Illness ED Provider: Efrem Castañeda MD HPI Narrative: 69-year-old male presents of with hypoxia from urgent care. Patient reports a mild dry cough and subjective shortness of breath for few days went to urgent Care was sent here for low oxygen which was reported to me to be in the 80s. He was given a DuoNeb placed on 2 L and sent in. He was normotensive and not tachycardic and did not report fever with EMS. On arrival here for initial blood pressure low 80s over 60s heart rate 100. 98.9 temp. Mild diminished breath sounds in the right side no wheeze no rales no distress He denies chest pain leg edema. He has had a longstanding indwelling Juarez with leg bag in place straw-colored urine there. No abdominal pain Related Data Home Medications ?Medication ?Instructions ?Recorded ?Confirmed gabapentin 800 mg tablet 800 mg PO BEDTIME 02/22/20 0 01/11/25 lisinopril 5 mg tablet 5 mg PO DAILY 02/22/2001/10 metformin 1,000 mg tablet 1,000 mg PO BID 02/22/20 aspirin 81 mg tablet,delayed 1 tab PO DAILY 09/04/20 0 01/10/25 release apixaban 5 mg tablet (Eliquis) 1 tab PO BID 03/03/21 0 01/10/25 Held on 12/28/21. Instructions: Resume on 12/29/21. ibuprofen 800 mg tablet 800 mg PO Q6H PRN Pain 07/0801/10/25 acetaminophen 500 mg tablet 500 mg PO Q8H PRN Pain 06/0601/10/25 blood sugar diagnostic (FreeStyle #10 ea 01/14/2209/13 Lite Strips) lancets 33 gauge (TRUEplus Lancets) #100 ea 01/14/22 0 09/25/24 pen needle, diabetic 31 gauge x #50 ea 01/14/2205/19 (UltiCare Pen Needle) baclofen 20 mg tablet 40 mg PO TID 03/26/24 insulin glargine-yfgn 100 unit/mL 12 - 20 unit subcut BEDTIME 01/10/25 01/10/25 (3 mL) subcutaneous pen (Semglee (insulin glargine-yfgn) Pen) loratadine 10 mg tablet 10 mg PO DAILY 01/10/2512/15 gabapentin 800 mg tablet 400 mg PO DAILY 01/11/25 Previous Rx's ?Medication ?Instructions ?Recorded ferrous sulfate 325 mg (65 mg 325 mg PO BID #60 tabs 0 09/26/24 iron) tablet (Iron (ferrous sulfate)) cyanocobalamin (vitamin B-12) 1,000 mcg PO DAILY #90 t abs 01/09/25 1,000 mcg tablet (Vitamin B-12) Allergies Allergy/AdvReac Type Severity Reaction Status Date / Time levofloxacin (From LEVAQUIN) Allergy Intermediate HIVES, Verified 01/10/25 16:16 SKIN RASH shellfish derived Allergy Intermediate itching Verified 01/10/25 16:16 throat PMFSH Past Medical History Medical History Right foot infection (Unknown) Osteomyelitis of left foot Osteomyelitis Wound cellulitis Osteomyelitis Positive colorectal cancer screening using Cologuard test Osteomyelitis History of blood transfusion On anticoagulant therapy Iron deficiency anemia Decubitus ulcer of right ischial tuberosity region Diabetes Hx pulmonary embolism HTN (hypertension) Paraplegia Surgical History Hx of skin graft Hx of endoscopy Status post debridement Hx of colonoscopy Hx of foot surgery History of spinal surgery Family History Family History Father Mother Brother No problems noted. Sister No problems noted. Sister No problems noted. Sister No problems noted. Son No problems noted. Son No problems noted. Son No problems noted. Son No problems noted. Daughter No problems noted. Daughter No problems noted. Social History Social History Household Members: Family Household Members Other:: roommate Housing: House Are you a primary ambulatory care nurse to a significant other at home: No Do you presently have visiting nurse or other home services: Yes Alcohol intake: former Comment: Paraplegic Patient Tobacco Use Status: Never used Tobacco Smoked in Last 30 Days: No Second Hand Smoke Exposure: No Use of substances other than those prescribed or required for medical reasons: No Advance Directives: No Advance Directives Information Provided: Yes Advance Directives Date on File: 03/10/21 service: No Current occupational status: disabled Physical Exam 2 Exam: Exam: EXAM: Gen: Alert, awake, well appearing, well hydrated. Head: Atraumatic Eyes: Anicteric, Normal conjunctiva. ENT: Moist mucosa, no pallor. ? Neck: Supple. Skin: ?No observable rash or bruising on exposed or examined skin Respiratory: Breathing comfortably mildly diminished breath sounds of the right side no audible wheeze or rales. No distress speaking full sentences Cardiovascular: Regular rate and rhythm. No murmurs or rub. Well perfused periphery, warm extremities. No edema. ? Abdominal: No focal tenderness. Soft, no objective distension. No palpable masses or obvious organomegaly. ?No guarding, no rebound tenderness or other peritoneal findings. : No flank tenderness. Juarez leg bag with straw-colored urine. Neuro: Alert. Gross movement of all extremities intact. ? Psych: Calm. Cooperative. MSK: No grossly visible deformity. Vital signs: See flowsheet Vital Signs: Vital Signs: Last Vital Signs Temp 98.2 F 01/11/25 10:20 Pulse 102 H 01/11/25 10:20 Resp 20 01/11/25 10:20 BP 133/68 01/11/25 10:20 Pulse Ox 96 01/11/25 10:20 O2 Del Method Nasal Cannula 01/11/25 10:20 O2 Flow Rate 2 01/11/25 10:20 BMI result Body Mass Index 26.7 Course Reevaluation(s) Reevaluation #1: 18:05: Patient repeat oxygen is now 88-90. Blood pressure persistently on the low end. Although he did not initially meet SIRS criteria I do now have some concerns for an underlying infection. Urinalysis does appear to have WBCs and leuk esterase he has not had a positive urine culture in the past but may have a UTI. At this time I performed point of care ultrasound see their reports above in brief summary he has a reassuring echocardiogram with no RV strain or tamponade and has normal LV function though he has a small and collapsing IVC I will start with IV crystalloid resuscitation, blood cultures added and broad- spectrum antibiotics. Point of care DVT ultrasound excludes bilateral DVT. There was no evidence of pneumothorax on thoracic ultrasound The patient does also has a history of PE we will get a CT angio of the chest. Medications Administered Generic Name Dose Route Start Last Admin Trade Name Freq PRN Reason Stop Dose Admin Acetaminophen 975 mg 01/10/25 21:50 01/11/25 04:21 Acetaminophen 325 Mg Tablet PO 975 mg Q6H PRN Administration Pain, Mild 1-3,fever,headache Apixaban 5 mg 01/10/25 22:15 01/11/25 08:05 Apixaban 5 Mg Tablet PO 5 mg BID NETO Administration Aspirin 81 mg 01/11/25 09:00 01/11/25 08:03 Aspirin Enteric Coated 81 Mg Tablet. PO 81 mg DAILY NETO Administration Baclofen 40 mg 01/10/25 22:15 01/11/25 11:06 Baclofen 20 Mg Tablet PO Not Given TID [facility] Ceftriaxone Sodium 1 gm 01/10/25 23:00 01/10/25 23:04 Ceftriaxone Sodium 1 Gm Vial IVPUSH 1 gm Q24H NETO Administration Cyanocobalamin 1,000 mcg 01/11/25 09:00 01/11/25 08:06 Cyanocobalamin (Vitamin B-12) 1,000 Mcg Tablet PO 1,000 mcg DAILY [facility] Administration Ferrous Sulfate 324 mg 01/11/25 09:00 01/11/25 08:06 Ferrous Sulfate 324 Mg Tablet. PO 324 mg BID NETO Administration Insulin Human Lispro 0 unit 01/11/25 07:30 01/11/25 07:23 Insulin Lispro 100 Unit/Ml 3 Ml Vial SUBCUT Not Given QIDACHS [facility] Protocol Lisinopril 5 mg 01/11/25 09:00 01/11/25 08:06 Lisinopril 5 Mg Tablet PO 5 mg DAILY [facility] Administration Protocol Loratadine 10 mg 01/11/25 09:00 01/11/25 08:44 Loratadine 10 Mg Tablet PO 10 mg DAILY [facility] Administration Ondansetron HCl 4 mg 01/10/25 21:50 01/11/25 07:59 Ondansetron Hcl 4 Mg/2 Ml Vial IVPUSH 4 mg Q8H PRN Administration Nausea and Vomiting Sodium Chloride 3 ml 01/11/25 00:00 01/11/25 08:47 0.9 % Sodium Chloride Flush 3 Ml Syringe IVFLUSH Not Given QSHIFT [facility] Tramadol HCl 50 mg 01/10/25 21:50 01/11/25 08:22 Tramadol Hcl 50 Mg Tablet PO 50 mg Q6H PRN Administration Pain, Moderate(Pain Scale 4-6) Discontinued Medications Generic Name Dose Route Start Last Admin Trade Name Freq PRN Reason Stop Dose Admin Albuterol/Ipratropium 3 ml 01/10/25 16:08 01/10/25 16:15 Albuterol/Iprat 2.5/0.5mg 3 Ml Ampul.Neb INHALE 01/10/25 16:09 3 ml ONCE ONE Administration Gabapentin 800 mg 01/11/25 09:00 01/11/25 08:03 Gabapentin 400 Mg Capsule PO 400 mg BID NETO Administration Piperacillin Sod/Tazobactam 50 mls @ 100 mls/hr 01/10/25 18:20 01/10/25 20:13 Sod 3.375 gm/ Sodium Chloride IV 01/10/25 18:49 Infused ONCE ONE Infusion Sodium Chloride 1,000 mls @ 999 mls/hr 01/10/25 20:15 01/11/25 01:45 Ns IV 01/10/25 21:15 Infused .Q1H1M NETO Infusion Lactated Ringer's 1,000 mls @ 999 mls/hr 01/11/25 00:45 01/11/25 02:15 Lr IV 01/11/25 01:45 Infused .Q1H1M NETO Infusion Iohexol 65 ml 01/10/25 19:25 01/10/25 19:25 Iohexol 350 Mg/Ml 100 Ml Infus..Btl IV 01/10/25 19:26 65 ml ONCE ONE Administration Medical Decision Making Medical Decision Making MDM Narrative: Medical Decision Makin-year-old male with hypoxia from the clinic after few days of cough and subjective shortness of breath. Review of the patient's medical history reveals normal EF with LVH from 2023, history of diabetes, sent here for hypoxia from urgent care patient has mild cough subjective shortness of breath. Patient does not have self-reported pulmonary history he is paraplegic does report a remote PE history in his on apixaban appears to be adherent. He describes severe PE 1997 possibly with thrombolytics based on his description Patient does not have chest pain but after initial workup with heart rates in the 90-100 range, borderline low blood pressure, unexplained hypoxia despite having very mild wheezing I felt it reasonable to pursue PE. He does have a reassuring echocardiogram and collapsing IVC so I will start with IV crystalloid resuscitation. There was no DVT on point of care ultrasound, there is no pneumothorax. Lactate not elevated over 2. Preliminary Favored Differential Diagnosis: Pneumonia, UTI, dehydration, bronchitis, URI, PE among additional considered etiologies Testing Interpreted Independently: ?See below for details Radiology or Lab testing Results Reviewed: ?See below for details Consults: ?See below for details Independent Historians/External Chart Reviews: ?See below for details Social Determinants of Health Impacting MDM/Planning: ?See below for details Differential Diagnosis Differential Diagnoses: The differential diagnosis associated with the presentation includes UTI, unlikely infected decubitus wound, sepsis, dehydration, hypotension, pneumonia, pleural effusion, PE, pneumothorax Lab Data [facility] Lab Attestation statement: I reviewed the patient's lab results. 01/11/25 06:19 01/11/25 06:19 Labs: Lab Results 01/10/25 01/10/25 Range/Units 16:31 17:20 WBC 5.2 (4.8-10.8) X10*3/uL RBC 3.81 L (4.60-5.80) X10*6/uL Hgb 10.0 L (14.0-18.0) g/dl Hct 32.5 L (42.0-52.0) % MCV 85.3 (80.0-98.0) fL MCH 26.2 L (27.0-33.0) pg MCHC 30.8 L (31.0-36.0) g/dl RDW 15.2 (11.0-16.0) % Plt Count 263 (160-400) X10*3/uL MPV 9.5 (9.4-12.4) fL Immature Gran % (Auto) 0.4 (0.0-0.4) % Neut % (Auto) 68.9 (45-73) % Lymph % (Auto) 19.9 L (20-40) % Vilas % (Auto) 6.7 (2-11) % Eos % (Auto) 3.3 (0-4) % Baso % (Auto) 0.8 (0-2) % Lymph # (Auto) 1.0 L (1.2-4.9) X10*3/uL Vilas # (Auto) 0.4 (0.1-1.2) X10*3/uL Eos # (Auto) 0.2 (0.0-0.4) X10*3/uL Baso # (Auto) 0.0 (0.0-0.2) X10*3/uL Abs Immat Gran (auto) 0.02 (0.00-0.03) X10*3/uL Absolute Neuts (auto) 3.6 (2.0-8.3) x10*3/uL Absolute Nucleated RBC 0.000 (0.0-0.012) X10*3/uL Nucleated RBC % (auto) 0.0 (0.0-0.2) /100WBC Sodium 136 (135-145) mmol/L Potassium 3.7 (3.3-5.1) mmol/L Chloride 102 (96-108) mmol/L Carbon Dioxide 27 (22-29) mmol/L Anion Gap 11 L (12-20) BUN 11 (9-16) mg/dL Creatinine 0.68 (0.5-1.4) mg/dL Estim Creat Clear Calc 119.2 Estimated GFR > 60 Random Glucose 103 (60-115) mg/dL Lactic Acid 1.0 (0.5-2.0) mmol/L Calcium 8.9 (8.4-10.2) mg/dL Magnesium 2.1 (1.6-2.6) mg/dL Troponin I High Sens < 2.7 (<3.5-35.0) ng/L Procalcitonin 0.14 ng/mL Urine Color Yellow Urine Appearance Cloudy Urine pH 7.5 (5.0-9.0) Ur Specific [place]by 1.015 (1.005-1.025) Urine Protein Trace (Neg-Trace) mg/dL Urine Glucose (UA) Negative (Negative) mg/dL Urine Ketones Negative (Negative) mg/dL Urine Blood Negative (Negative) Urine Nitrite Positive H (Negative) Ur Leukocyte Esterase Large (3+) H (Negative) Urine RBC 0-2 (0-2) /HPF Urine WBC 21-50 (0-5) /HPF Ur Squamous Epith Cells 0-2 (0-2) /HPF Urine Bacteria 4+ (None Seen) Hyaline Casts 0-2 (0-2) /LPF Independent Interpretation I performed an independent interpretation of an: EKG (Sinus rhythm rate 85 QTC 390 no acute ischemic changes no RV strain) External Record Review External record reviewed: Inpatient record and Outpatient record Procedures Procedure Narrative Procedure Narrative: EMERGENCY ULTRASOUND INTERPRETATION-Limited Echocardiography [This study was ordered, performed, and interpreted by myself. The study reveals: Impression: NORMAL LV FUNCTION, NO RV DYSFUNCTION, NO PERICARDIAL EFFUSION] [Emergent Cardiac for Indication: Views Used: PLAX, PSSA, A4, SX, IVC Pericardial Effusion/Tamponade Findings: NONE RV Dilation (> LV diam in 4ch apical): NONE Global LV Fxn: NORMAL IVC Dilation and Resp Variation: Small and collapsing Performed by: MD Maddy Images were stored CPT:40038] EMERGENCY ULTRASOUND INTERPRETATION-Limited Point of Care Venous (DVT) [This study was ordered, performed, and interpreted by myself. The study reveals: Impression: NO EVIDENCE OF DVT. I RECOMMENDED TO THE PATIENT REPEAT ULTRASOUND IN ONE WEEK IF SYMPTOMS PERSIST.] [Indication: Laterality: Bilateral Common Femoral: -Full Compressibility: YES -Clot Seen: NO Superficial Femoral: -Full Compressibility: YES -Clot Seen: NO Popliteal: -Full Compressibility: YES -Clot Seen: NO Other: Performed by: Efrem Castañeda MD Images were stored CPT: 89565] [facility] ULTRASOUND INTERPRETATION-Point of Care Thoracic: IMPRESSION: NO FOCAL CONSILDATION, NO SUGGESTION OF PATHOLOGIC B LINES, OR EFFUSION. NO SUGGESTION OF PNEUMOTHORAX ON VISUALIZED PORTIONS OF THE CHEST Indication: Dyspnea Findings: Right Pleural 2ICS: ?POSITIVE SLIDING, No B Lines or Consolidation Right PLAPS: ?No effusion Left Pleural 2ICS: POSITIVE SLIDING, No B Lines or Consolidation Left PLAPS: ?No effusion Performed by: Efrem Castañeda MD ? Images were stored CPT: 79048,06279,28690] Critical Care Time Critical Care Time Critical Care Time: Yes Total Critical Care Time: 60 Attestation: ED Critical Care: Acute hypoxic respiratory failure, fluctuating hypotension, sirs/sepsis criteria Authorized and Performed by: Efrem Castañeda MD Total critical care time: Approximately 60 Due to a high probability of clinically significant, life threatening deterioration, the patient required my highest level of preparedness to intervene emergently and I personally spent this critical care time directly and personally managing the patient. This critical care time included obtaining a history; examining the patient; pulse oximetry; ordering and review of studies; arranging urgent treatment with development of a management plan; evaluation of patient's response to treatment; frequent reassessment; and, discussions with other providers. This critical care time was performed to assess and manage the high probability of imminent, life-threatening deterioration that could result in multi-organ failure. It was exclusive of separately billable procedures and treating other patients and teaching time. Discharge Plan Discharge Clinical Impression: Urinary tract infection, Acute hypoxic respiratory failure Patient Disposition: Admitted As Inpatient Interventions: Admission Worksheet (ED) Last Done: 01/11/25 08:28 Discharge Date/Time: 01/11/25 09:44
[2025-01-10 16:38] LABS: MANUAL DIFF FLAG NO
[2025-01-10 16:46] LABS: Hematocrit 32.5 % (42.0-52.0); Hemoglobin 10.0 g/dl (14.0-18.0); Imm Gran Abs Auto 0.02 X10*3/uL (0.00-0.03); Imm Gran Pct Auto 0.4 % (0.0-0.4); Lymphocytes Absolute Auto 1.0 X10*3/uL (1.2-4.9); Mean Corpuscular HGB Conc 30.8 g/dl (31.0-36.0); Mean Corpuscular Hemoglobin 26.2 pg (27.0-33.0); Mean Corpuscular Volume 85.3 fL (80.0-98.0); NRBC Abs Auto 0.000 X10*3/uL (0.0-0.012); NRBC Pct Auto 0.0 /100WBC (0.0-0.2); Platelet Count 263 X10*3/uL (160-400); Red Blood Count 3.81 X10*6/uL (4.60-5.80); White Blood Count 5.2 X10*3/uL (4.8-10.8)
--- NOTE | 2025-01-10 16:49 | PC.NURSE ---
pt to ED via EMS form . CC at was cough and chest tightness for 1 day. He was found to be mid 80s on RA there, they gave a duoneb and started 2L o2. On arrival, titrated off O2 and another duoneb given by RT. LS diminished on the right He is a paraplegic and does not have the use of his legs. WC at baseline. Chronic reno, arrives with leg bag. Multiple BPs hypotensive, 80s over 40s. oral temp 98.9. repeat manual 96/50 and 99.2 rectal. MD aware of vitals. 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 He arrives and they are dressed with clean dressings.
--- OUTSIDE RECORDS SUMMARY | 2025-01-10 16:50 | XMS_ITS | Encounter Summary ---
Author Organization [employer] Address [address] [place] [address] Care Team Providers Care C Software Engineer Name Role Phone Jose Baker MD Primary Care Provide r August Unavailable Reason for Visit * Reason Comments Med Refill Encounter Details Date Type Department Care Team ([facility] st Contact Info) Description 12/30/2024 Refill [facility] [address] [place], [place] [phone] Jose Baker MD [address] [facility] [place] [address] Acute pain of both shoulders Social History [...] your housing situation today? I have he sing 09/27/[address] you li [...] Description 02/19/2025 1:00 PM EDT Office Visit [facility] [address] [place] [address] Jose Baker MD [address] [place] [address] documented as of this encounter Visit Diagnoses Diagnosis Acute pain of both shoulders documented in this encounter Additional Health Concerns Assessment Noted Time PHQ-9 Depression Total Score: 0 11/23/19 24 9:34 AM EDT documented as of this encounter Care Teams C Software Engineer Relationship Specialty Start Date End Date Jsoe Baker MD [address] [place] [address] PCP - General Internal Medicine 03/22/19August [address] [place] [address] Gastroenterology 06/14/24 [facility] 09/10/23 documented as of this encounter
--- OUTSIDE RECORDS SUMMARY | 2025-01-10 16:50 | XMS_ITS | Encounter Summary ---
Author Organization [employer] Address [address] [place] [address] 7t [place] [address] Care Team Providers Care Tractor Sweeper Driver Name Role Phone Jose Baker MD Primary Care Provide r August Unavailable Reason for Visit * Reason Onset Date Comments PT1 10/28/2023 Encounter Details Date Type Department Care Team (Late st Contact Info) Description 10/28/2023 Telephone [facility] MEDICINE [address] [place], [place] [phone] Jose Baker MD 230 [place], [place] [phone] PT1 Social History Tobacco Use Types Packs/Day [...] Y/N: Yes Provider name or facility name: [facility] Address: [address] [place] [address] Escort needed: Y/N: Yes Do you have a wheelchair: Y/N: Yes If yes- Manual or electric: Electric Visits: n/a documented in this encounter Plan of Treatment Upcoming Encounters Date Type Department Care Team (Late st Contact Info) Description 02/19/2025 1:00 PM EDT Office Visit [facility] MEDICINE [address] [place] [address] Jose Baker MD [address] [place] [address] documented as of this encounter Visit Diagnoses Not on filedocumented in this encounter Additional Health Concerns Assessment Noted Time PHQ-9 Depression Total Score: 0 02/11/20 23 1:23 PM EDT documented as of this encounter Care Teams Tractor Sweeper Driver Relationship Specialty Start Date End Date Jose Baker MD 230 [place] [address] PCP - General Internal Medicine 03/22/19August [address] 3rd [place] [address] Gastroenterology 06/14/24 [place] [facility] 09/10/23 documented as of this encounter
--- OUTSIDE RECORDS SUMMARY | 2025-01-10 16:50 | XMS_ITS | Encounter Summary ---
Author Organization [employer] Address [address] [place] [address] 7t [place] [address] Care Team Providers Care Storage Center Manager Name Role Phone Jose Baker MD Primary Care Provide r August Unavailable Reason for Visit * Reason Onset Date Comments Paperwork/Forms 03/31/2023 Encounter Details Date Type Department Care Team ([facility] Contact Info) Description 03/31/2023 Telephone [facility] MEDICINE [address] [place], [place] [phone] Jose Baker MD 230 [place], [place] [phone] Paperwork/Forms Social History Tobacco Use Types Packs/Day [...] Description 02/19/2025 1:00 PM EDT Office Visit [facility] MEDICINE [address] [place] [address] Jose Baker MD [address] [place] [address] documented as of this encounter Visit Diagnoses Not on filedocumented in this encounter Additional Health Concerns Assessment Noted Time PHQ-9 Depression Total Score: 0 02/11/20 23 1:23 PM EDT documented as of this encounter Care Teams Storage Center Manager Relationship Specialty Start Date End Date Jose Baker MD 230 [place] [address] PCP - General Internal Medicine 03/22/[address] [place] [address] 3[address] [place] [address] Gastroenterology 06/14/24 [facility] 09/10/23 documented as of this encounter
--- OUTSIDE RECORDS SUMMARY | 2025-01-10 16:50 | XMS_ITS | Encounter Summary ---
Author Organization [employer] Address [address] [place] [address] 7t [place] [address] Care Team Providers Care Cutter Operator Helper Name Role Phone Jose Baker MD Primary Care Provide r August Reason for Visit * Reason Comments Med Refill Encounter Details Date Type Department Care Team ([facility] st Contact Info) Description 03/30/2023 Refill [facility] MEDICINE [address] [place], [place] [phone] Jose Baker MD 230 [place], [place] [phone] Hip osteomyelitis, left (CMS/HCC) Social History Tobacco [...] Description 02/19/2025 1:00 PM EDT Office Visit [facility] MEDICINE [address] [place] [address] Jose Baker MD 230 [place] [address] documented as of this encounter Visit Diagnoses Diagnosis Hip osteomyelitis, left (CMS/HCC) Unspecified osteomyelitis, pelvic region and thigh documented in this encounter Additional Health Concerns Assessment Noted Time PHQ-9 Depression Total Score: 0 02/11/20 23 1:23 PM EDT documented as of this encounter Care Teams Cutter Operator Helper Relationship Specialty Start Date End Date Jose Baker MD [address] [place] [address] PCP - General Internal Medicine 03/22/19August [address] [place] [address] 3rd [place] [address] Gastroenterology 06/14/24 [facility] 09/10/23 documented as of this encounter
--- OUTSIDE RECORDS SUMMARY | 2025-01-10 16:50 | XMS_ITS | Encounter Summary ---
Author Organization [employer] Address [address] [place] [address] 7t [place] [address] Care Team Providers Care Paper Maker Name Role Phone Jose Baker MD Primary Care Provide r August Reason for Visit * Reason Comments Med Refill Encounter Details Date Type Department Care Team ([facility] st Contact Info) Description 08/10/2023 Refill [facility] MED[facility]INE 230 [place], [place] [phone] Edwina Mace MD 230 [place], [place] [phone] Social History Tobacco Use Types Packs/Day Years [...] Description 02/19/2025 1:00 PM EDT Office Visit [facility] MEDICINE 230 [facility] [place] [address] Jose Baker MD 230 [facility] [place] [address] documented as of this encounter Visit Diagnoses Not on filedocumented in this encounter Additional Health Concerns Assessment Noted Time PHQ-9 Depression Total Score: 0 02/11/20 23 1:23 PM EDT documented as of this encounter Care Teams Paper Maker Relationship Specialty Start Date End Date Jose Baker MD 230 [facility] [place] [address] PCP - General Internal Medicine 03/22/[address] [place] [address] Gastroenterology 06/14/24 [place] [facility] 09/10/23 documented as of this encounter
--- OUTSIDE RECORDS SUMMARY | 2025-01-10 16:50 | XMS_ITS | Encounter Summary ---
Author Organization [employer] Address [address] [place] [address] 7t [place] [address] Care Team Providers Care Leather Polisher Name Role Phone Jose Baker MD Primary Care Provide r August Unavailable Reason for Visit * Reason Comments Med Refill Encounter Details Date Type Department Care Team ([facility] st Contact Info) Description 06/01/2022 Telephone [facility] MEDICINE 230 [place], [place] [phone] Jose Baker MD 230 [place] [address] Med Refill Social History Tobacco Use Types [...] taking motrin 800 mg he bought in [place] for the longest time and nothing has [...] Description 02/19/2025 1:00 PM EDT Office Visit [facility] MEDICINE 230 [place], [place] [phone] Jose Baker MD 230 [place] [address] documented as of this encounter Visit Diagnoses Diagnosis Left hip pain Pain in joint, pelvic region and thigh documented in this encounter Care Teams Leather Polisher Relationship Specialty Start Date End Date Jose Baker MD 230 [place] [address] PCP - General Internal Medicine 03/22/19 SmileyAugust [address] [facility] 3rd [place] [address] Gastroenterology 06/14/24 [facility] 09/10/23 documented as of this encounter
--- OUTSIDE RECORDS SUMMARY | 2025-01-10 16:50 | XMS_ITS | Encounter Summary ---
Author Organization [employer] Address [address] [place] [address] 7t [place] [address] Care Team Providers Care Chief Financial Officer Name Role Phone Jose Baker MD Primary Care Provide r August Reason for Visit * Reason Onset Date Comments Referral 11/21/2023 Encounter Details Date Type Department Care Team ([facility] st Contact Info) Description 11/21/2023 Telephone [facility] MEDICINE 230 [place], [place] [phone] Jose Baker MD 230 [place], [place] [phone] Referral Social History Tobacco Use Types Packs/Day [...] AM EDT documented as of this encounter Functional Status * Over the past 2 weeks, how often have you been bothered by any of the following problems? Question Answer Date of Assessment Author Patient Health Questionnaire -2 Score 0 11/23/2023 9:34 AM EDT Libby Gandara MA * Question Answer Date of Assessment Author Trouble falling or staying asleep, or sleeping too much Not at all 11/23/2023 9:34 AM NUVIAT Libby Gandara MA Feeling tired or having ghazal le energy Not at all 11/23/2023 9:34 AM Libby Stuart MA Poor appetite or overeating Not at all 11/23/2023 9: 34 AM Libby Stuart MA Feeling bad about yourself - or that you are a failure or have let yourself or your family down Not at all 11/23/2023 9:34 AM Libby Stuart MA Trouble concentrating on things, such as reading the newspaper or watching television Not at all 11/23/2023 9:34 AM Libby Stuart MA * Over the past 2 weeks, how often have you been bothered by any of the following problems? Question Answer Date of Assessment Author Little interest or pleasure in doing things Not at all 11/23/2023 9:34 AM Libby Stuart MA Feeling down, depressed, or hopeless Not at all 11/23/2023 9:34 AM Libby Stuart MA Moving or speaking so slowly that other people could have noticed? Or the opposite - being so fidgety or restless that you have been moving around a lot more than usual. Not at all 11/23/2023 9:34 AM EDT Libby Gandara MA Thoughts that you would be better off or hurting yourself in some way Not at all 11/23/2023 9:34 AM EDT Libby Gandara MA Patient Health Questionnaire -9 Score 0 11/23/2023 9:34 AM EDT Libby Gandara MA documented as of this encounter Miscellaneous Notes * Telephone Encounter - Tatianna Paulino - 11/21/2023 12:28 PM EDT Tc from pt requesting a podiatry referral after Dr Tea Pearl detention. documented in this encounter Plan of Treatment Upcoming Encounters Date Type Department Care Team (Late st Contact Info) Description 02/19/2025 1:00 PM EDT Office Visit [facility] MEDICINE 230 [place] [address] Jose Baker MD 230 [place] [address] documented as of this encounter Visit Diagnoses Not on filedocumented in this encounter Additional Health Concerns Assessment Noted Time PHQ-9 Depression Total Score: 0 02/11/20 23 1:23 PM EDT documented as of this encounter Care Teams Chief Financial Officer Relationship Specialty Start Date End Date Jose Baker MD 230 [place] [address] PCP - General Internal Medicine 03/22/[address] [place] [address] 3rd [place] [address] Gastroenterology 06/14/24 [place] [facility] 09/10/23 documented as of this encounter
--- OUTSIDE RECORDS SUMMARY | 2025-01-10 16:50 | XMS_ITS | Encounter Summary ---
Author Organization [employer] Address [address] [facility] 7t [place] [address] Care Team Providers Care Can Intake Worker Name Role Phone Jose Baker MD Primary Care Provide r August Reason for Visit * Reason Comments Med Refill Encounter Details Date Type Department Care Team ([facility] st Contact Info) Description 11/30/2024 Refill [facility] 230 [place] [address] Annmarie Sandoval MD [address] [place] [address] Social History Tobacco Use Types Packs/Day Years [...] Description 02/19/2025 1:00 PM EDT Office Visit [facility] MEDICINE [address] [place] [address] Jose Baker MD 230 [place] [address] documented as of this encounter Visit Diagnoses Not on filedocumented in this encounter Additional Health Concerns Assessment Noted Time PHQ-9 Depression Total Score: 0 11/23/19 24 9:34 AM EDT documented as of this encounter Care Teams Can Intake Worker Relationship Specialty Start Date End Date Jose Baker MD 230 [place] [address] PCP - General Internal Medicine 03/22/19August [address] 3rd Floor [place] [address] Gastroenterology 06/14/24 [place] [facility] 09/10/23 documented as of this encounter
--- OUTSIDE RECORDS SUMMARY | 2025-01-10 16:50 | XMS_ITS | Encounter Summary ---
Author Organization [employer] Address [address] [place] [address] 7t [place] [address] Care Team Providers Care Animal Nutrition Teacher Name Role Phone Jose Baker MD Primary Care Provide r August Reason for Visit * Reason Onset Date Comments Appointment Confirmation 01/10/2025 Encounter Details Date Type Department Care Team ([facility] st Contact Info) Description 01/10/2025 Telephone [facility] MEDICINE 230 [place], [place] [phone] Jose Baker MD 230 [place] [address] Appointment Confirmation Social History Tobacco Use Types Packs/Day Years [...] encounter Miscellaneous Notes * Telephone Encounter - Isa Hoang MA - 01/10/2025 10:06 AM EDT Contacted pt in regards to appt needing to be changed due to pcp being out, pt agreed to date/ timeof 02/19/2025 @1PM. LB documented in this encounter Plan of Treatment Upcoming Encounters Date Type Department Care Team (Late st Contact Info) Description 02/19/2025 1:00 PM EDT Office Visit [facility] MEDICINE 230 [place] [address] Jose Baker MD 230 [place] [address] documented as of this encounter Visit Diagnoses Not on filedocumented in this encounter Additional Health Concerns Assessment Noted Time PHQ-9 Depression Total Score: 0 11/23/19 24 9:34 AM EDT documented as of this encounter Care Teams Animal Nutrition Teacher Relationship Specialty Start Date End Date Jose Baker MD 230 [place] [address] PCP - General Internal Medicine 03/22/19 SmileyAugust [address] 3rd Floor [place] [address] Gastroenterology 06/14/24 [place] [facility] 09/10/23 documented as of this encounter
--- OUTSIDE RECORDS SUMMARY | 2025-01-10 16:50 | XMS_ITS | Encounter Summary ---
Author Organization [employer] Address [address] [facility] 7t [place] [address] Care Team Providers Care Banking Pin Adjuster Name Role Phone Jose Baker MD Primary Care Provide r August Unavailable Encounter Details Date Type Department Care Team (Latest Contact Info) Description 01/10/2025 Travel Social History Tobacco Use Types Packs/Day Years [...] 1:00 PM EDT Office Visit [facility] MEDICINE 230 [place] [address] Jose Baker MD 230 [place] [address] documented as of this encounter Visit Diagnoses Not on filedocumented in this encounter Additional Health Concerns Assessment Noted Time PHQ-9 Depression Total Score: 0 11/23/19 9:34 AM EDT documented as of this encounter Care Teams Banking Pin Adjuster Relationship Specialty Start Date End Date oJse Baker MD 230 [place] [address] PCP - General Internal Medicine 03/22/19August [address] 3rd [place] [address] Gastroenterology [facility] documented as of this encounter
--- OUTSIDE RECORDS SUMMARY | 2025-01-10 16:50 | XMS_ITS | Encounter Summary ---
Author Organization [employer] Address [address] [place] [address] 7t [place] [address] Care Team Providers Care Systems Integration Analyst Name Role Phone Jose Baker MD Primary Care Provide r August Reason for Visit * Reason Onset Date Comments Call Back Request 06/14/2024 Encounter Details Date Type Department Care Team ([facility] st Contact Info) Description 06/14/2024 Telephone [facility] MEDICINE 230 [place], [place] [phone] Jose Baker MD [address] [place] [address] Call Back Request Social History Tobacco Use [...] housing situation today? I have he sing 03/07/[address] you li [...] as he will like to speak to [place] [phone] documented in this encounter Plan of Treatment Upcoming Encounters Date Type Department Care Team (Late st Contact Info) Description 02/19/2025 1:00 PM EDT Office Visit [facility] MEDICINE 230 [place] [address] Jose Baker MD [address] [place] [address] documented as of this encounter Visit Diagnoses Not on filedocumented in this encounter Additional Health Concerns Assessment Noted Time PHQ-9 Depression Total Score: 0 11/23/19 24 9:34 AM EDT documented as of this encounter Care Teams Systems Integration Analyst Relationship Specialty Start Date End Date Jose Baker MD [address] [place] [address] PCP - General Internal Medicine 03/22/[address] 3rd [place] [address] Gastroenterology 06/14/24 [facility] 09/10/23 documented as of this encounter
--- OUTSIDE RECORDS SUMMARY | 2025-01-10 16:50 | XMS_ITS | Encounter Summary ---
Author Organization [employer] Address [address] [facility] 7t [place] [address] Care Team Providers Care Manager Technical Sales Name Role Phone Jose Baker MD Primary Care Provide r August Unavailable Encounter Details Date Type Department Care Team (Late st Contact Info) Description 09/11/2024 Telephone [facility] MEDICINE 230 [place], [place] [phone] Jose Baker MD 230 [place], [place] [phone] Social History Tobacco Use Types Packs/Day Years [...] encounter Miscellaneous Notes * Telephone Encounter - Jyoti Chauhan - 09/11/2024 2:10 PM EDT .Patient calling requesting PT1 Home Address verified: Y/N: Yes Provider name or facility name: [facility] Escort needed: Y/N: Yes Do you have a wheelchair: Y/N: Yes If yes- Manual or electric: Electric Visits: 1 x month documented in this encounter Plan of Treatment Upcoming Encounters Date Type Department Care Team (Late st Contact Info) Description 02/19/2025 1:00 PM EDT Office Visit [facility] MEDICINE [address] [place] [address] Jose Baker MD [address] [place] [address] documented as of this encounter Visit Diagnoses Not on filedocumented in this encounter Additional Health Concerns Assessment Noted Time PHQ-9 Depression Total Score: 0 11/23/19 24 9:34 AM EDT documented as of this encounter Care Teams Manager Technical Sales Relationship Specialty Start Date End Date Jose Baker MD 230 [place] [address] PCP - General Internal Medicine 03/22/19 SmileyAugust [address] [facility] [address] [place] [address] Gastroenterology 06/14/24 [place] [facility] 09/10/23 documented as of this encounter
--- OUTSIDE RECORDS SUMMARY | 2025-01-10 16:50 | XMS_ITS | Encounter Summary ---
Author Organization [employer] Address [address] [place] [address] 7t [place] [address] Care Team Providers Care Jr. Java Developer Name Role Phone Jose Baker MD Primary Care Provide r August Unavailable Reason for Visit * Reason Onset Date Comments Med Refill 04/01/2023 Encounter Details Date Type Department Care Team ([facility] st Contact Info) Description 04/01/2023 Telephone [facility] MEDICINE 230 [place], [place] [phone] Jose Baker MD 230 [place], [place] [phone] Med Refill Social History Tobacco Use Types [...] 9:17 AM EST Medication was sent to [facility] on 06/01/22 #60 with 11 refills. * Telephone Encounter - Braulio Melton - 04/01/2023 9:15 AM EST Tc from pt requesting medication refill for metFORMIN (Glucophage) 1000 MG tablet documented in this encounter Plan of Treatment Upcoming Encounters Date Type Department Care Team (Late st Contact Info) Description 02/19/2025 1:00 PM EDT Office Visit [facility] MEDICINE 230 [place] [address] Jose Baker MD 230 [place] [address] documented as of this encounter Visit Diagnoses Not on filedocumented in this encounter Additional Health Concerns Assessment Noted Time PHQ-9 Depression Total Score: 0 02/11/20 1:23 PM EDT documented as of this encounter Care Teams Jr. Java Developer Relationship Specialty Start Date End Date Jose Baker MD 230 [place] [address] PCP - General Internal Medicine 03/22/[address] [place] [address] 3rd Floor [place] [address] Gastroenterology 06/14/24 [place] [facility] 09/10/23 documented as of this encounter
--- OUTSIDE RECORDS SUMMARY | 2025-01-10 16:50 | XMS_ITS | Clinical Summary ---
Author Organization [employer] Address [address] [place] [address] [address] [place] [address] Care Team Providers Care Tugger Operator Name Role Phone Jose Baker MD [...] time each day. Active TRUEplus Lancets 33G misc TEST BLOOD SUGAR THREE TIMES DAILY 100 each 11 04/01/20 23 Active aspirin (Aspirin Adult Low Strength) 81 MG EC tabletIndication s:Type 2 diabetes mellitus with other diabetic kidney complication (CMS/HCC) Take 1 tablet (81 mg) by mouth Once per day. 90 tablet 3 04/17/20 24 Active betamethasone, augmented, (Diprolene) 0.05 % ointment APPLY TOPICALLY TWICE DAILY 45 g 1 08/10/19 25 Active insulin degludec (Tresiba FlexTouch) 200 UNIT/ML injection 20 units once a day 3 mL 12 08/24/19 25 Active Insulin Glargine-yfgn (Semglee, yfgn,) 100 UNIT/ML solution pen-injector Inject 0.2 mL (20 Units) under the skin at bedtime. To use instead of his tresiba given no available in pharmacy 6 mL 2 08/25/19 25 026 Active lisinopril 5 MG tabletIndication s:Primary hypertension TAKE 1 TABLET BY MOUTH EVERY DAY 90 tablet 1 09/26/19 25 Active loratadine (Claritin) 10 MG tabletIndication s:Seasonal allergies Take 1 tablet (10 mg) by mouth in the morning. 90 tablet 10/12/19 25 Active glucose blood (FREESTYLE LITE) test stripIndications :Type 2 diabetes mellitus without complication, with long-term current use of insulin ([facility]) Test blood sugars 3 times a day 100 each 10/12/19 25 Active Acetaminophen Extra Strength 500 MG tabletIndication s:Acute pain of both shoulders TAKE 1 TABLET BY MOUTH EVERY 8 HOURS 60 tablet 3 10/12/19 25 Active pseudoephedrine (Sudafed) 30 MG tablet Take 1 tablet (30 mg) by mouth 2 times daily for 10 days. 30 tablet 10/23/19 25 Active metFORMIN (Glucophage) 1000 MG tabletIndication s:Type 2 diabetes mellitus with other diabetic kidney complication (CMS/HCC) TAKE 1 TABLET BY MOUTH TWICE DAILY IN THE MORNING AND IN THE EVENING WITH MEALS 180 tablet 1 11/14/19 25 Active BD Pen Needle Short Ultrafine 31G X 8 MM misc USE DIRECTED ONCE DAILY 100 each 11 12/01/19 25 Active ibuprofen 800 MG tabletIndication s:Hip osteomyelitis, left (CMS/HCC) TAKE 1 TABLET BY MOUTH THREE TIMES DAILY NEEDED FOR MILD PAIN 60 tablet 12/29/19 25 Active ibuprofen 800 MG tabletIndication s:Hip osteomyelitis, left (CMS/HCC) TAKE 1 TABLET BY MOUTH THREE TIMES DAILY NEEDED FOR MILD PAIN 60 tablet 12/01/19 25 025 Discontinued Hospital, Clinic, or Other Facility Administered Medication Ordered Dose Route Frequency Start Date End Date Status ipratropium-albutero l (Duo-Neb) 0.5-2.5 mg/3 mL nebulizer solution 3 mgIndications:Wheezi ng,Dyspnea, unspecified type 3 mg NEBULIZATION Once 01/10/2025 01/10/2025 Ended Active Problems Problem Noted Date Diagnosed Date Decreased hearing of both ears 10/04/2024 Assessment & Plan (10/04/2024 1:36 PM EDT): Patient with c/o tinnitus, on exam he has decreased hearing R>L Plan: ENT evaluation Abscess 02/10/2024 Assessment & Plan (02/10/2024 3:17 [...] EDT): New onset. Full rom although painful, building official redness, no swelling, no deformity, no hx [...] EST): New onset. Full rom although painful, building official redness, no swelling, no deformity, no hx [...] [place] [facility] [place], still has some wounds being [...] being followed at the [place] [facility] [place] still has some wounds being [...] being followed at the [place] [facility] [place], still has some wounds being [...] being followed at the [place] clinic [place] [facility] [place], still has some wounds being followed Left hip pain 05/11/2022 Assessment & Plan (05/11/2022 12:54 PM EST): Pt here for a sick visit with c/o moderate to severe left hip pain, seen at the office of Voltage Tester ( Dr Lazcano ) who ordered an [...] in the ischium. Under the care of [facility] [place] who recommended ID consultation. Seen [...] in the ischium. Under the care of [facility] [place] who recommended ID consultation. Seen [...] with patient's surgeon Dr. Barnett at the [facility] [place] who recommended ID consultation. She [...] with patient's surgeon Dr. Barnett at the [facility] [place] who recommended ID consultation. She [...] classified else where 05/11/2022 Assessment & Plan (10/04/2024 1:14 PM EDT): Patient here for a f/u Lab Results Component Value Date WBC 4.5 (L) 02/03/2024 HGB 9.6 (L) 02/03/2024 HCT 32.5 (L) 02/03/2024 MCV 84.0 02/03/2024 PLT 303 02/03/2024 Continue PO iron supplementation, patient states he takes one daily d/t constipation. On daily omeprazole Pt is s/p EGD by GI 12/28/[address] Swift pt has a hx of positive Cologuard for which he had a f/u Colonoscopy 09/25/2020 (poor prep ) iFOBT testing as recommended by GI q. 6 months due to poor prep. Seen by GI 09/07/2024 who recommended repeat Colonoscopy Last seen by Dr. Lazcano 09/25/2024. Recommended Venofer infusions Assessment & Plan (06/14/2024 1:14 PM EST): [...] Normal Colonoscopy: Pt had Cologuard with his Metal Precision Machine Assembler reported as Positive they discussed with him [...] Normal Colonoscopy: Pt had Cologuard with his Metal Precision Machine Assembler reported as Positive they discussed with him [...] Normal Colonoscopy: Pt had Cologuard with his Metal Precision Machine Assembler reported as Positive they discussed with him [...] of left buttock, unstageable Assessment & Plan (10/04/2024 1:25 PM EDT): Under the care of the wound clinic, last seen 09/13/2024 Assessment & Plan (06/14/2024 1:20 PM EST): [...] (11/23/2023 6:22 PM EDT): -I requested today staff midwife/apprenticeship director to check status of wheelchair and cushion [...] [place] Essential hypertension 04/26/2018 Assessment & Plan (10/04/2024 1:15 PM EDT): Patient here for a f/u currently controlled on a regimen of: Lisinopril 5 mg po daily. Given adequate blood pressure control will continue with current medical regimen. Most recent electrolytes, Bun and Creatinine done on: Lab Results Component Value Date NA 141 08/17/2024 NA 141 02/03/2024 K 4.7 08/17/2024 K 4.8 02/03/2024 CL 106 08/17/2024 CL 105 02/03/2024 BUN 15 08/17/2024 BUN 16 02/03/2024 CREATININE 0.59 08/17/2024 CREATININE 0.61 02/03/2024 were within normal limits. patient advised to adhere to a low sodium diet, encouraged about medication compliance, counseled about weight loss. Assessment & Plan (06/14/2024 1:17 PM EST): [...] diabetes mellitus without complication Assessment & Plan (10/04/2024 1:22 PM EDT): Here for a f/u DM controlled He is on a regimen of: Levemir 20 units sq q PM and Metformin 1000 mg po BID Hgb A1c 10/04/2024: 6.2 from 7.1 Eye exam was last done on: 08/22/[address] Christianson Microalbumin checked on: 08/17/2024 Pt on an RIDDHI inhibitor Foot check not done. Pt is paraplegic Pt reports compliance with Asa 81 mg po daily Plan: continue current regimen f/u in 4 months Pt advised to: adhere to diabetic diet check your blood sugars regularly check your feet on a daily basis Assessment & Plan (06/14/2024 1:27 PM EST): Here for a f/u DM controlled He is on a regimen of: Levemir 20 units sq q PM and Metformin 1000 mg po BID Hgb A1c 06/14/2024: 7.1 Eye exam was last done on: 12/[address] Christianson Microalbumin checked on: 06/14/2023 was: [...] exam was last done on: 12/[address] Christianson Microalbumin checked on: 06/14/2023 was: [...] exam was last done on: 2020 by bank appraiser Microalbumin checked on: 01/04/2022 was: 0.4 Will [...] exam was last done on: 2020 by bank appraiser Microalbumin checked on: 01/04/2022 was: 0.4 Will [...] exam was last done on: 2020 by bank appraiser Microalbumin checked on: 01/04/2022 was: 0.4 Will [...] exam was last done on: 2020 by bank appraiser Microalbumin checked on: 01/04/2022 was: 0.4 Pt [...] exam was last done on: 2020 by bank appraiser Microalbumin checked on: 01/04/2022 was: 0.4 Pt [...] Encounters Date Type Department Care Team Description 01/10/2025 2:40 PM EDT Office Visit [facility] [address] [place] [phone] Wheezing (Primary Dx); Dyspnea, unspecified type 01/10/2025 Travel 01/10/2025 Telephone [facility] [address] [place] [address] Jose Baker MD Appointment Confirmation 12/30/2024 Refill [facility] [address] [place] [address] Jose Baker MD Acute pain of both shoulders 12/28/2024 Refill [facility] [address] [place] [address] Jose Baker MD Hip osteomyelitis, left ([facility]) 12/20/2024 Telephone [facility] [address] [place] [phone] Jose Baker MD Referral 12/12/2024 Orders Only [facility] External Provider, [facility] 12/04/2024 Telephone [facility] [address] [place] [address] Jose Baker MD Durable Medical Equipment 11/30/2024 Refill [facility] [address] [address] Annmarie Sandoval MD 11/29/2024 Refill [facility] [address] [place] [address] Jose Baker MD Hip osteomyelitis, left ([facility]) 11/11/2024 Refill [facility] [address] [place] [address] Luz Huynh MD Type 2 diabetes mellitus with other diabetic kidney complication ([facility]) 11/08/2024 Refill [facility] [address] [place] [address] Jose Baker MD Hip osteomyelitis, left ([facility]) 11/05/2024 Telephone [facility] [address] [place] [address] Jose Baker MD Appointment Request 11/02/2024 Telephone [facility] [address] [place] [address] Jose Baker MD Durable Medical Equipment 10/31/2024 5:20 PM EDT Office Visit [facility] [address] [place] [phone] Sushant Alanis MD COVID (Primary Dx); Cough, unspecified type 10/22/2024 3:20 PM EDT Office Visit [facility] [address] [phone] Annmarie Sandoval MD Acute cough 10/10/2024 Refill [facility] [address] [place], [place] [phone] Jose Baker MD Seasonal allergies; Type 2 diabetes mellitus without complication, with long-term current use of insulin ([facility]); Acute pain of both shoulders from Last 3 Months Immunizations Immunization Administration Dates Next Due Hep B, adult [...] F) 01/10/2025 2:47 PM EDT Respiratory Rate 18 10/22/2024 2:48 PM EDT Oxygen Saturation 95% 01/10/2025 2:49 PM EDT 6 L Inhaled Oxygen Concentration - - Weight 88.5 kg (195 lb 3.2 oz) 06/14/2024 1:04 P M EST Height 188 cm (6' 2 ) 06/14/2024 1:04 PM EST Body Mass Index 25.06 06/14/2024 1:04 PM EST Plan of Treatment Upcoming Encounters Date Type Department Care Team (Late st Contact Info) Description 02/19/2025 1:00 PM EDT Office Visit [facility] [address] [place] [address] Jose Baker MD [address] [place] [address] Health Maintenance Due Date Last Done Comments [...] 2024 04/28/2023, 12/22/2021, 08/04/2021, Additional history exists Depression Screening 11/22/2024 11/23/2023, 11/23/19 24 Influenza Vaccine (#1) 2025 , 02/10/2023, 01/21/2022, Additional history exists Alcohol/Substance Use Screening 03/15/2025 03/15/2024 Diabetes: Hemoglobin A1C 04/06/2025 025, 06/14/2024, 03/15/2024, Additional history exists Lipid Panel 08/17/2025 08/17/2024, 07, 05/27/2023, Additional history exists SDOH Screening 09/27/2025 09/27/2024 Tobacco Screening 10/04/2025 10/04/2024 DTaP/Tdap/Td Vaccines (3 - Td or Tdap) 03/25/2028 03/25/2018, 09/08/2017 Hepatitis B Vaccines Completed 12/22/2021, 10/11/2017, 09/08/2017 Pneumococcal Vaccine: 50+ Years Completed 12/22/2021, 09/08/2017, 03/15/2012 Zoster Vaccines Completed 03/09/2022, 12/15, 09/09/2017 HIB Vaccines Aged Out No longer eligi [...] ANTIGEN Routine 01/10/2025 3:[address] CHEST W CONTRAST Routine 12/12/2024 3 :[address] ABDOMEN PELVIS W CONTRAST Routine 12/12/2024 3:03 PM EDT POCT INFLUENZA B (ID NOW RAPID MOLECULAR) Routine 10/31/2024 5:32 PM EDT Cough, unspecified type POCT INFLUENZA A (ID NOW RAPID MOLECULAR) Routine 10/31/2024 5:32 PM EDT Cough, unspecified type POCT COVID-19 AG EDDY ID NOW Routine 10/31/2024 5:32 PM EDT Cough, unspecified type POCT RAPID COVID ANTIGEN Routine 10/22/2024 2:53 PM EDT Acute cough POCT GLYCATED HEMOGLOBIN, TOTAL Routine 10/04/2024 1:11 PM EDT Type 2 diabetes mellitus without complication, with long-term current use of insulin ([facility]) LIPID PANEL, STANDARD Routine 08/17/2024 11:17 AM EDT Type 2 diabetes mellitus without complication, with long-term current use of insulin ([facility]) from Last 3 Months or Most Recently Relevant to Health Maintenance Results * Influenza A (ID NOW Rapid Molecular) (01/10/2025 3:12 PM EDT) Only the most recent of2 resultswithin the time period is included. Influenza A Negative Negative, Indeterminate [facility] Swab 01/10/2025 3:12 PM EDT Tatiana Lopez MD POINT OF CARE TEST ENTER/E DIT ORDERABLES Final Result Performing Organization Address [facility]/ZIP Co de Phone Number [facility] [address] [place] [phone] * Influenza B (ID NOW Rapid Molecular) (01/10/2025 3:11 PM EDT) Only the most recent of2 resultswithin the time period is included. Influenza B Negative Negative, Indeterminate [facility] Swab 01/10/2025 3:11 PM EDT Tatiana Lopez MD POINT OF CARE TEST ENTER/E DIT ORDERABLES Final Result Performing Organization Address [facility]/ZIP Co de Phone Number [facility] [address] [place] [phone] * POCT Rapid COVID Ag (01/10/2025 3:02 PM EDT) Only the most recent of2 resultswithin the time period is included. Rapid COVID Ag Negative Swab 01/10/2025 3:02 PM EDT Tatiana Lopez MD POINT OF CARE TEST ENTER/E DIT ORDERABLES Final Result * CT Abdomen Pelvis w/ Contrast (12/12/2024 3:03 PM EDT) Anatomical Region Laterality Modality Body, Pelvis, Abdomen Computed T omography 12/12/2024 3:03 PM EDT Narrative 12/12/2024 4:59 PM EDT [address] [address] [address] Scan Report Signed Patient: Israel Monroy MR#: [id number] : 1955 Acct:[id number] Age/Sex: 69 / M ADM Date: 12/12/24 Loc: HO.CT Attending Dr: Izabella Lazcano MD Ordering Physician: Izabella Lazcano MD Date of Service: 12/12/24 Procedure(s): CT abdomen pelvis w IV con Accession Number(s): [id number] cc: Izabella Lazcano MD; Jose Grayson MD Report Number: [id number]: Total DLP = 659.00 mGy-cm EXAMINATION: CT ABDOMEN AND PELVIS WITH CONTRAST CLINICAL INFORMATION: Unintentional weight loss and anemia COMPARISON: March 02 2021 DLP: 659 mGY*cm TECHNIQUE: Multidetector volumetric images were obtained from the superior aspect of the liver through the pubic symphysis following administration 85 mL of Omnipaque 350 intravenous contrast. Sagittal and coronal reformatted images were obtained on the technologist's workstation. Oral contrast: No This CT examination was performed using dose optimization techniques as appropriate, variously including the following: *Automated exposure control *Adjustment of mA and/or kV according to patient size (this includes techniques or standardized protocols for targeted exams where dose is matched to indication/reason for exam; i.e. extremities or head) *Use of iterative reconstruction technique FINDINGS: LUNG BASES: The visualized lung bases are unremarkable. LIVER, GALLBLADDER, AND BILIARY TREE: The liver is normal in size, shape, and attenuation. No focal hepatic lesion or biliary ductal dilatation is present. The gallbladder is unremarkable with no evidence of radiopaque gallstones, gallbladder wall thickening, or obvious pericholecystic inflammatory changes. PANCREAS: Unremarkable. SPLEEN: Unremarkable. ADRENAL GLANDS: Unremarkable. KIDNEYS AND URETERS: 2 hypodensities in the lower pole right kidney are stable and likely represent benign simple renal cysts. BLADDER: Decompressed by a [place] catheter. GASTROINTESTINAL TRACT: Moderate stool is again noted throughout the colon. There is a diverticulum on the right that previously contained adipose tissue. Currently it contains a short loop of ileum. There is no obstruction. A normal appendix is identified. LYMPH NODES: Left external iliac and common femoral lymph nodes are mildly enlarged, similar to the prior examination. They measure up to 1.4 cm short axis. VASCULAR: Mild calcifications. PELVIC VISCERA: Unremarkable. OSSEOUS STRUCTURES: There are extensive syndesmophytes and bony bridging across the facets There are moderate degenerative changes of the SI joints. There is severe osteoarthritis of the right hip and moderate osteoarthritis of the left. There is soft tissue ulceration in the left inferior gluteal region extending to the issue. The ischium appears sclerotic and there is heterotopic ossification extending anteriorly. CT/CT abdomen pelvis w IV con IMPRESSION: There are new sclerotic changes in the left ischium adjacent to an area of soft tissue ulceration raising concern for chronic osteomyelitis. Left inguinal adenopathy. This could be related to neoplasm, infection, or inflammatory changes. Changes in the spine are consistent with ankylosing spondylitis. Severe right and moderate left hip osteoarthritis. Direct inguinal hernia on the right contains a short segment of ileum. There is no obstruction. Moderate stool is present throughout the colon, similar to the prior. Fleischner guidelines were followed. Electronically signed by: Brett Longoria MD 12/12/2024 04:57 PM EDT Dictated By: Brett Longoria MD Signed By: <Electronically signed by Brett Longoria MD in OV> 12/12/24 1657 DD/ 1503 TD/TT: 12/12/24 1640 Chief Drafter: Procedure Note Donotuseinterpreter, Image - 12/12/[address] [address] [address] Scan Report Signed Patient: Israel Monroy LMR#: [id number] : 5Acct:[id number] Age/Sex: 69 / MADM Date: 12/12/24 Loc: HO.CT Attending Dr: Izabella Lazcano MD Ordering Physician: Izabella Lazcano MD Date of Service: 12/12/24 Procedure(s): CT abdomen pelvis w IV con Accession Number(s): [id number] cc: Izabella Lazcano MD; Jose Grayson MD Report Number: [id number]: Total DLP = 659.00 mGy-cm EXAMINATION: CT ABDOMEN AND PELVIS WITH CONTRAST CLINICAL INFORMATION: Unintentional weight loss and anemia COMPARISON: March 02 2021 DLP: 659 mGY*cm TECHNIQUE: Multidetector volumetric images were obtained from the superior aspect of the liver through the pubic symphysis following administration 85 mL of Omnipaque 350 intravenous contrast. Sagittal and coronal reformatted images were obtained on the technologist's workstation. Oral contrast: No This CT examination was performed using dose optimization techniques as appropriate, variously including the following: *Automated exposure control *Adjustment of mA and/or kV according to patient size (this includes techniques or standardized protocols for targeted exams where dose is matched to indication/reason for exam; i.e. extremities or head) *Use of iterative reconstruction technique FINDINGS: LUNG BASES: The visualized lung bases are unremarkable. LIVER, GALLBLADDER, AND BILIARY TREE: The liver is normal in size, shape, and attenuation. No focal hepatic lesion or biliary ductal dilatation is present. The gallbladder is unremarkable with no evidence of radiopaque gallstones, gallbladder wall thickening, or obvious pericholecystic inflammatory changes. PANCREAS: Unremarkable. SPLEEN: Unremarkable. ADRENAL GLANDS: Unremarkable. KIDNEYS AND URETERS: 2 hypodensities in the lower pole right kidney are stable and likely represent benign simple renal cysts. BLADDER: Decompressed by a Reno catheter. GASTROINTESTINAL TRACT: Moderate stool is again noted throughout the colon. There is a diverticulum on the right that previously contained adipose tissue. Currently it contains a short loop of ileum. There is no obstruction. A normal appendix is identified. LYMPH NODES: Left external iliac and common femoral lymph nodes are mildly enlarged, similar to the prior examination. They measure up to 1.4 cm short axis. VASCULAR: Mild calcifications. PELVIC VISCERA: Unremarkable. OSSEOUS STRUCTURES: There are extensive syndesmophytes and bony bridging across the facets There are moderate degenerative changes of the SI joints. There is severe osteoarthritis of the right hip and moderate osteoarthritis of the left. There is soft tissue ulceration in the left inferior gluteal region extending to the issue. The ischium appears sclerotic and there is heterotopic ossification extending anteriorly. CT/CT abdomen pelvis w IV con IMPRESSION: There are new sclerotic changes in the left ischium adjacent to an area of soft tissue ulceration raising concern for chronic osteomyelitis. Left inguinal adenopathy. This could be related to neoplasm, infection, or inflammatory changes. Changes in the spine are consistent with ankylosing spondylitis. Severe right and moderate left hip osteoarthritis. Direct inguinal hernia on the right contains a short segment of ileum. There is no obstruction. Moderate stool is present throughout the colon, similar to the prior. Fleischner guidelines were followed. Electronically signed by: Brett Longoria MD 12/12/2024 04:57 PM EDT Dictated By: Brett Longoria MD Signed By: <Electronically signed by Brett Longoria MD in OV> 12/12/24 1657 DD/ 1503 TD/TT: 12/12/24 1640 Chief Drafter: [facility] External Provider IMG CT PROCEDURES Final Result * CT Chest w/ Contrast (12/12/2024 3:03 PM EDT) Anatomical Region Laterality Modality Body, Chest Computed Tomogra phy 12/12/2024 3:03 PM EDT Narrative 12/12/2024 5:12 PM EDT [address] [address] [address] Scan Report Signed Patient: Israel Monroy MR#: [id number] : 1955 Acct:[id number] Age/Sex: 69 / M ADM Date: 12/12/24 Loc: HO.CT Attending Dr: Izabella Lazcano MD Ordering Physician: Izabella Lazcano MD Date of Service: 12/12/24 Procedure(s): CT chest w IV con Accession Number(s): [id number] cc: Izabella Lazcano MD; Jose Grayson MD Report Number: [id number]: Total DLP = 0.00 mGy-cm EXAMINATION: CT CHEST WITH CONTRAST CLINICAL INFORMATION: Unintentional weight loss COMPARISON: None available. TECHNIQUE: Multidetector volumetric CT imaging of the chest was obtained after the administration of 85 mL of Omnipaque 350 intravenous contrast without immediate adverse reactions. Axial MIP volume rendering provided. Sagittal and coronal reformatted images were obtained. This CT examination was performed using dose optimization techniques as appropriate, variously including the following: *Automated exposure control *Adjustment of mA and/or kV according to patient size (this includes techniques or standardized protocols for targeted exams where dose is matched to indication/reason for exam; i.e. extremities or head) *Use of iterative reconstruction technique DLP: 659 mGY*cm FINDINGS: LUNGS: Image 85/[address] #4: There is a 2 mm solid nodule contacting moderate fissure in the right upper lobe. 115/160:8 mm groundglass density is only 1 mm thick superior to inferior. 106/160:14 mm vague groundglass density is present in the lingula. MEDIASTINUM: There is a 14 mm low attenuating lesion in the left thyroid gland. PLEURA: There is focal pleural thickening in the posterior medial left lung base. This is just deep to an area where the posterior left 10th rib has been resected. AXILLA: No lymphadenopathy. UPPER ABDOMEN: Unremarkable OSSEOUS STRUCTURES: Syndesmophytes are present throughout the mid and lower thoracic spine. There is osseous fusion across the facet joints. Spinous processes have been resected. CT/CT chest w IV con IMPRESSION: Small pulmonary nodules and groundglass densities. Fleischner Society recommends CT at 6-12 months to confirm persistence, then CT every 2 years until 5 years. Left thyroid gland nodule or cyst. Follow-up with ultrasound to characterize. Changes in thoracic spine are most consistent with ankylosing spondylitis. There is focal pleural thickening in the posterior base of the left lung adjacent to an area where the 10th rib was resected. Fleischner guidelines were followed. Electronically signed by: Brett Longoria MD 12/12/2024 05:09 PM EDT Dictated By: Brett Longoria MD Signed By: <Electronically signed by Brett Longoria MD in OV> 12/12/24 1709 DD/ 1503 TD/TT: 12/12/24 1640 Chief Drafter: Procedure Note Donotuseinterpreter, Image - 12/12/[address] [place] [id number] [address] Scan Report Signed Patient: Israel Monroy LMR#: [id number] : 5Acct:[id number] Age/Sex: 69 / MADM Date: 12/12/24 Loc: HO.CT Attending Dr: Izabella Lazcano MD Ordering Physician: Izabella Lazcano MD Date of Service: 12/12/24 Procedure(s): CT chest w IV con Accession Number(s): [id number] cc: Izabella Lazcano MD; Jose Grayson MD Report Number: [id number]: Total DLP = 0.00 mGy-cm EXAMINATION: CT CHEST WITH CONTRAST CLINICAL INFORMATION: Unintentional weight loss COMPARISON: None available. TECHNIQUE: Multidetector volumetric CT imaging of the chest was obtained after the administration of 85 mL of Omnipaque 350 intravenous contrast without immediate adverse reactions. Axial MIP volume rendering provided. Sagittal and coronal reformatted images were obtained. This CT examination was performed using dose optimization techniques as appropriate, variously including the following: *Automated exposure control *Adjustment of mA and/or kV according to patient size (this includes techniques or standardized protocols for targeted exams where dose is matched to indication/reason for exam; i.e. extremities or head) *Use of iterative reconstruction technique DLP: 659 mGY*cm FINDINGS: LUNGS: Image 85/[address] #4: There is a 2 mm solid nodule contacting moderate fissure in the right upper lobe. 115/160:8 mm groundglass density is only 1 mm thick superior to inferior. 106/160:14 mm vague groundglass density is present in the lingula. MEDIASTINUM: There is a 14 mm low attenuating lesion in the left thyroid gland. PLEURA: There is focal pleural thickening in the posterior medial left lung base. This is just deep to an area where the posterior left 10th rib has been resected. AXILLA: No lymphadenopathy. UPPER ABDOMEN: Unremarkable OSSEOUS STRUCTURES: Syndesmophytes are present throughout the mid and lower thoracic spine. There is osseous fusion across the facet joints. Spinous processes have been resected. CT/CT chest w IV con IMPRESSION: Small pulmonary nodules and groundglass densities. Fleischner Society recommends CT at 6-12 months to confirm persistence, then CT every 2 years until 5 years. Left thyroid gland nodule or cyst. Follow-up with ultrasound to characterize. Changes in thoracic spine are most consistent with ankylosing spondylitis. There is focal pleural thickening in the posterior base of the left lung adjacent to an area where the 10th rib was resected. Fleischner guidelines were followed. Electronically signed by: Brett Longoria MD 12/12/2024 05:09 PM EDT RP Dictated By: Brett Longoria MD Signed By: <Electronically signed by Brett Longoria MD in OV> 12/12/24 1709 DD/ 1503 TD/TT: 12/12/24 1640 Chief Drafter: [facility] External Provider IMG CT PROCEDURES Final Result * (ABNORMAL) POCT Rapid Covid-19 EDDY ID NOW (10/31/2024 5:32 PM EDT) Coronavirus Antigen PCR Positive (A) Negative, Indeterminate, None Detected, Invalid, Specimen unsatisfactory for evaluation, Weakly Positive, 2+ [facility] Luis 10/31/2024 5:32 PM EDT Sushant Alanis MD POINT OF CARE TEST ENTER/EDIT OR DERABLES Final Result [facility] [address] [place] [phone] * (ABNORMAL) POCT HGB A1C (10/04/2024 1:11 PM EDT) Pathologist [facility] Hemoglobin A1C 6.2(A) 4.0 - 6.0 % QC Media Lot # [id number] Lot# Expiration Date Blood 10/04/2024 1:11 PM EDT Jose Carbajal MD POINT OF CARE TEST EN TER/EDIT ORDERABLES Final Result * (ABNORMAL) Lipid Panel, Standard (08/17/2024 11:17 AM EDT) Pathologist [facility] Triglycerides 46 <150 mg/dL [facility] Comment:Desirable Triglyceri de: less than 150 mg/dLBorderline High Triglyceride 150-199 mg/dLHigh Triglyceride: 200-499 mg/dLVery High Triglyceride: greater than or equal to 5OO mg/dL Cholesterol 109 <200 mg/dL [facility] Comment:Desirable Cholestero l: less than 200 mg/dLBorderline High Cholesterol: 200-239 mg/dLHigh Cholesterol: greater than 239 mg/dL LDL Cholesterol Calculated 66 <100 mg/dL [facility] Comment:Desirable LDL: less than 100 mg/dLNear Optimal/Above Optimal LDL: 110- 129 mg/dLBorderline High LDL: 130-159 mg/dLHigh LDL: 160-189 mg/dLVery High LDL: greater than or equal to 190 mg/dL HDL Cholesterol 34(L) >40 mg/dL [facility] Comment:Desirable HDL: great er than 40 mg/dL Note: This HDL assay may give artificially low results in patients with liver disease. Blood Venous blood specimen / Unknown 08/17/2024 11:17 AM EDT 08/17/2024 1:41 PM EDT Jose Carbajal MD LAB BLOOD ORDERABLES Final Result [facility] [address] [place], [place] [phone] from Last 3 Months or Most Recently Relevant to Health Maintenance Insurance [address] [place] [facility] STANDARD MEDICARE [address] [place] [address] [address] [place] [address] [address] [place] Care Teams Tugger Operator Relationship Specialty Start Date End Date Jose Baker MD [address] [place] [address] PCP - General Internal Medicine 03/22/[address] 3rd Floor [place] [address] Gastroenterology 06/14/24 [place] 09/10/23
--- OUTSIDE RECORDS SUMMARY | 2025-01-10 16:50 | XMS_ITS | Clinical Summary ---
Author Organization [facility] Address [address] [place] [address] Phone Care Team Providers Care Neon Tube Bender Name Role Phone Jose Grayson MD Primary Care Provi gauri Allergies Active Allergy Reactions Criticality Noted Date Comments Levofloxacin Hives,Rash Medium 04/15/2017 Other reaction(s): Hives / Skin Rash Other Itching Medium 10/02/2020 Shellfish Containing Products Rash 09/17/2024 Medications apixaban (ELIQUIS) 5 mg tablet Take by mouth. Active aspirin 81 mg EC tablet Take 81 mg by mouth daily. Active baclofen 2,000 mcg/mL intrathecal solution by Intrathecal route. Active gabapentin (NEURONTIN) 800 mg tablet Take 800 mg by mouth 3 times daily. Active hydrocortisone 2.5 % ointment Apply topically 2 times daily. Active insulin glargine (Lantus Solostar U-100 Insulin) 100 unit/mL (3 mL) injection pen Inject into the skin. Active latanoprost (XALATAN) 0.005 % ophthalmic solution 1 Drop at bedtime. Active levoFLOXacin (LEVAQUIN) 250 mg tablet Take 250 mg by mouth daily. Active lisinopriL (PRINIVIL,ZESTRI L) 5 mg tablet Take 5 mg by mouth daily. Active metFORMIN (GLUCOPHAGE) 1,000 mg tablet Take 1,000 mg by mouth 2 times daily (with meals). Active omadacycline (Nuzyra) 150 mg tablet Take by mouth. 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 V24, [facility] V28) 01/02/2021 Social History Tobacco Use Types [...] Care Team (Late st Contact Info) Description 01/21/2025 1:00 PM EDT Office Visit Orthopedic Surgery - [address] [phone] Irwin Caraballo, DPM [address] [place] [phone] Health Maintenance Due Date Last Done Comments [...] 12/22/2021, 08/04/2021, Additional history exists Depression Screening 05/16/2024 Diabetes: Blood Sugar Control Test (HGBA1C) 12/12/2024 06/14/2024, 03/15/2024 Influenza Vaccine (#1) 2025 , 02/10/2023, 01/21/2022, Additional history exists Diabetes: Annual GFR (Glomerular Filtration Rate) 08/17/2025 08/17/2024, 02/03/2024 Hypertension/CHF/CAD Annual BMP Blood Test 08/17/2025 08/17/2024, 02/03/2024 DTaP,Tdap,and Td Vaccines (3 - Td or Tdap) 03/25/2028 03/25/2018, 09/08/2017 Cholesterol Screening (Lipid Panel) 08/17/2029 08/17/2024, 11/23/2023 Hepatitis B Vaccines Completed 12/22/2021, 10/11/2017, [...] patient's age to complete this topic Insurance MEDICAID - [place] MEDICARE Care Teams Neon Tube Bender Relationship Specialty Start Date End Date Jose Grayson MD [address] [place] [address] [place] [phone] PCP - General Internal Medicine 04/08/21
--- OUTSIDE RECORDS SUMMARY | 2025-01-10 16:50 | XMS_ITS | Encounter Summary ---
Author Organization [employer] Address [address] [place] [address] 7t [place] [address] Care Team Providers Care Hand Cultivator Name Role Phone Jose Baker MD Primary Care Provide r August Reason for Visit * Reason Comments Med Refill Encounter Details Date Type Department Care Team ([facility] st Contact Info) Description 04/19/2024 Refill [facility] [address] [place], [place] [phone] Jose Baker MD [address] [place] [address] Acute pain of both shoulders Social History [...] Description 02/19/2025 1:00 PM EDT Office Visit [facility] [address] [place] [address] Jose Baker MD [address] [place] [address] documented as of this encounter Visit Diagnoses Diagnosis Acute pain of both shoulders documented in this encounter Additional Health Concerns Assessment Noted Time PHQ-9 Depression Total Score: 0 11/23/19 24 9:34 AM EDT documented as of this encounter Care Teams Hand Cultivator Relationship Specialty Start Date End Date Jose Baker MD [address] [place] [address] PCP - General Internal Medicine 03/22/19[address]rd [place] [address] Gastroenterology 06/14/24 [place] A 09/10/23 documented as of this encounter
--- OUTSIDE RECORDS SUMMARY | 2025-01-10 16:50 | XMS_ITS | Encounter Summary ---
Author Organization [facility] Address [address] [place] [address] 7t [place] [address] Care Team Providers Care Distillery Manager Name Role Phone Jose Baker MD Primary Care Provide r August Unavailable Encounter Details Date Type Department Care Team (Late st Contact Info) Description 07/08/2023 Telephone [facility] MED[facility]INE [address] [place], [place] [phone] Jose Baker MD [address] [place], [place] [phone] Social History Tobacco Use Types Packs/Day Years [...] Description 02/19/2025 1:00 PM EDT Office Visit [facility] [address] [place] [address] Jose Baker MD [address] [place] [address] documented as of this encounter Visit Diagnoses Not on filedocumented in this encounter Additional Health Concerns Assessment Noted Time PHQ-9 Depression Total Score: 0 02/11/20 1:23 PM EDT documented as of this encounter Care Teams Distillery Manager Relationship Specialty Start Date End Date Jose Baker MD [address] [place] [address] PCP - General Internal Medicine 03/22/19August [address] [place] [address] Drive [address]rd [place] [address] Gastroenterology 06/14/24 [place] A 09/10/23 documented as of this encounter
--- OUTSIDE RECORDS SUMMARY | 2025-01-10 16:50 | XMS_ITS ---
Author Organization [facility] Care Team Providers Care Scooping Machine Tender Name Role Phone Lakisha Lucia Unavailable Unavailable Jose Alfredo Lira Unavailable Unavailable Brian Boyd Unavailable Unavailable Allergies and adverse reactions Code CodeSystem Substance Reaction Severity StartDate Concern Status Shell Fish Unknown 10/06/2021 active Levaquin Unknown 10/06/2021 active Care Team Name Role Address Phone Organization Jacque Lakisha Lucia PCP [address] [place] [address], [address], [facility] (Office): [phone] (Fax): [phone] [facility] 10/06/2021 - 10/13/2021 Jose Alfredo Lira [address] [place] [address], [address], [facility] (Office): : [facility] 10/06/2021 - 10/13/2021 Brian Boyd [address] [place] [address], [address], [facility] (Office): [phone] (Fax): [phone] [facility] 10/06/2021 - 10/13/2021 Goals Section Goals Description Status Target Date [place] will be free from disco mfort or adverse reactions related to anticoagulant use through the review date. Active 01/11/2022 [place] will be free of falls through the review da te. Active 01/11/2022 [place] will be/remain free fro m catheter-related trauma through review date. Active 01/11/2022 [place] will have incontinence needs met by staff through the review date. Active 01/11/2022 [place] will have no complicati ons related to diabetes through the review date. Active 01/11/2022 [place] will maintain clean and intact skin by the review date. Active 01/11/2022 [place] will maintain current l evel of function through the review date. Active 01/11/2022 [place] will not have an interr uption in normal activities due to pain through the review date. Active 01/11/2022 Mental Status Section Date Assessment Total Score Description 10/10/2021 BIMS 13 cognitively int act CAM 0 No delirium ind icated PHQ-9 00 Problems Problem # Description Date of onset Resolved Date Code CodeSystem Concern Status 1 ANEMIA, UNSPECIFIED [address] active 2 ENCOUNTER FOR SURGICAL AFTERCARE FOLLOWING SURGERY ON THE SKIN AND SUBCUTANEOUS TISSUE [address] active 3 ESSENTIAL (PRIMARY) HYPERTENSION [address] active 4 GASTRO-ESOPHAGEAL REFLUX DISEASE WITHOUT ESOPHAGITIS [address] active 5 OTHER REDUCED MOBILITY [address] active 6 PARAPLEGIA, UNSPECIFIED [address] active 7 PERSONAL HISTORY OF OTHER VENOUS THROMBOSIS AND EMBOLISM [address] active 8 PRESENCE OF UROGENITAL IMPLANTS [address] active 9 PRESSURE ULCER OF LEFT BUTTOCK, STAGE [address] active 10 SPASTIC HEMIPLEGIA AFFECTING UNSPECIFIED SIDE [address] active 11 TYPE 2 DIABETES MELLITUS WITHOUT COMPLICATIONS [address] active Reason for Referral No Reasons for Referral Entered Social History Social History Observation Description Start Date End Date Code Code System Current Smoking Status Tobacco smoking consumption unknown 169828617 SNOMED CT Sex Assigned At Male 1955 [address]-7 [facility] Gender Identity Vital Signs Code Code System Vitals Name Values and Units Timing Information 9279-1 [facility] Respiratory Rate Value=16.0 Units=/m in 10/10/2021 8462-4 [facility] Blood Pressure-Diastolic Value=47 Un its=mmHg 10/10/2021 8480-6 [facility] Blood Pressure-Systolic Botca=306 Un its=mmHg 10/10/2021 8310-5 [facility] Body Temperature Value=97.9 Units= F 10/10/2021 8867-4 [facility] Heart rate Value=84.0 Units=/min 2339-0 [facility] Blood Sugar Aujtj=175.0 Units=mg/dL 10/10/2021 11896-8 [facility] O2 % BldC Oximetry Value=92.0 Units= % 10/10/2021 34923-8 [facility] Weight Kxuns=736.7 Units=Lbs 8302-2 [facility] Height Value=74.0 Units=Inches 10/07/2021 21151-6 [facility] Pain Level Value=0.0 10/07/2021
--- OUTSIDE RECORDS SUMMARY | 2025-01-10 16:50 | XMS_ITS | Encounter Summary ---
Author Organization [employer] Address [address] [place] [address] 7t [place] [address] Care Team Providers Care Women Designer Name Role Phone Jose Baker MD Primary Care Provide r August Unavailable Reason for Visit * Reason Onset Date Comments Med B Form 04/05/2023 Encounter Details Date Type Department Care Team ([facility] st Contact Info) Description 04/05/2023 Telephone [facility] [address] [place], [place] [phone] Jose Baker MD [address] [place], [place] [phone] Med B Form Social History Tobacco Use [...] 1:00 PM EDT Office Visit [facility] [address] [place] [address] Jose Baker MD [address] [place] [address] documented as of this encounter Visit Diagnoses Not on filedocumented in this encounter Additional Health Concerns Assessment Noted Time PHQ-9 Depression Total Score: 0 02/11/20 23 1:23 PM EDT documented as of this encounter Care Teams Women Designer Relationship Specialty Start Date End Date Jose Baker MD [address] [place] [address] PCP - General Internal Medicine 03/22/[address] [place] [address] 3rd [place] [address] Gastroenterology 06/14/24 [facility] 09/10/23 documented as of this encounter
--- OUTSIDE RECORDS SUMMARY | 2025-01-10 16:51 | XMS_ITS | Encounter Summary ---
Author Organization [facility] Address [address] [place] [address] 7t [place] [address] Care Team Providers Care Emt Paramedic Name Role Phone Jose Baker MD Primary Care Provide r August Reason for Visit * Reason Comments Med Refill Encounter Details Date Type Department Care Team ([facility] st Contact Info) Description 10/04/2023 Refill [facility] [address] [place], [place] [phone] Jose Baker MD [address] [place], [place] [phone] Type 2 diabetes mellitus without complications (CMS/HCC); [...] 1:00 PM EDT Office Visit [facility] [address] [place] [address] Jose Baker MD [address] [place] [address] documented as of this encounter Visit Diagnoses Diagnosis Type 2 diabetes mellitus without complications (CMS/HCC) Hip osteomyelitis, left (CMS/HCC) Unspecified osteomyelitis, pelvic region and thigh documented in this encounter Additional Health Concerns Assessment Noted Time PHQ-9 Depression Total Score: 0 02/11/20 23 1:23 PM EDT documented as of this encounter Care Teams Emt Paramedic Relationship Specialty Start Date End Date Jose Baker MD [address] [place] [address] PCP - General Internal Medicine 03/22/19August [address] [place] [address] 3rd [place] [address] Gastroenterology 06/14/24 [place] [facility] 09/10/23 documented as of this encounter
[2025-01-10 17:03] LABS: Anion Gap 11 (12-20); Blood Urea Nitrogen 11 mg/dL (9-16); Calcium 8.9 mg/dL (8.4-10.2); Carbon Dioxide 27 mmol/L (22-29); Chloride 102 mmol/L (96-108); Creatinine Clr Calc Pharmacy 119.2; Estimated Glomerular Filt Rate > 60; Magnesium 2.1 mg/dL (1.6-2.6); Potassium 3.7 mmol/L (3.3-5.1); Sodium 136 mmol/L (135-145); Troponin-I High Sensitivity < 2.7 ng/L (<3.5-35.0)
--- NOTE | 2025-01-10 17:09 | PC.NURSE ---
MD asked for manual BP. 96/50.
[2025-01-10 17:19] LABS: Procalcitonin 0.14 ng/mL
[2025-01-10 17:29] LABS: Appearance Urine Cloudy; Glucose Urine UA Negative (Negative); PH 7.5 (5.0-9.0); Specific Gravity - Urine 1.015 (1.005-1.025); UMIC TRIGGER UACC YES
[2025-01-10 17:45] LABS: UACC Culture Trigger YES
[2025-01-10] MEDS: iohexoL 350 MG/ML 100 ML INFUS..BTL 65 ML IV (19:25)
--- NOTE | 2025-01-10 21:32 | PHA.MEDREC ---
Addendum entered by Dallas Calderon RPh 01/11/25 08:56: Patient told nurse Lori that he takes gabapentin 400 mg in the morning and 800 mg at bedtime. Home med list updated and orders updated. Addendum entered by Hamzah Medrano PharmD 01/10/25 21:38: reviewed Original Note: Pharmacy Consult ? Medication Reconciliation Pharmacy has completed the medication reconciliation. Spoke with pt utilizing is manager (Seth) and he was able to confirm his medications. Pt confirmed his Eliquis 5mg 1 BID, his Insulin Glargine-Yfgn; confirming he injects 12-20 units at bedtime depending on his sugar levels and pt takes his Metformin 100mg 1 BID but states if his sugars are low he wont take one.
[2025-01-10 21:41] LABS: Resp Syncy Virus RNA Qual PCR NEGATIVE (Negative); SARS COV2 PCR INHOUSE NEGATIVE (Negative)
--- NOTE | 2025-01-10 22:05 | PM.IMHP ---
History of Present Illness Date of Service: 01/10/25 Attending physician on admission: Velasquez Enriquez Chief Complaint: Hypoxia Patient is a 69-year-old [place]-speaking male with a past medical history significant for paraplegia, insulin-dependent diabetes, history of PE (1997), hypertension, who presented to the ED due to hypoxia saturating at 88% on room air. The patient initially went to urgent care earlier today due to a mild cough with phlegm, chills and subjective fevers for the past 2 days. When he was found to be hypoxic it was recommended that he come to the emergency department therefore EMS was called. The patient received a DuoNeb as well as 2 L of oxygen via NC with improvement. He reports some mild shortness of breath and rhinorrhea. He denies any recent sick contacts. He has been seeing wound care for his chronic decubitus ulcer, last seen yesterday, no sign of infection, no increased pain or purulence. He also has a chronic Juarez therefore does not have any urinary symptoms including frequency, urgency or dysuria. He denies any change in urine output or change in color or odor of urine. Review of Systems Constitutional: Constitutional: Denies body ache(s), Reports chills, Denies fatigue, Reports fever(s) and Denies headache(s) Eyes: Eyes: Denies change in vision ENT: Denies headache(s), Denies nasal congestion, Reports nasal discharge and Denies sore throat Cardiovascular: Cardiovascular: Denies Abdominal Distension, Denies chest pain, Denies rapid heart rate, Denies lightheadedness, Reports dyspnea and Reports dyspnea on exertion Respiratory: Respiratory: Reports chest congestion, Reports cough, Reports dyspnea, Reports dyspnea on exertion and Denies wheezing Gastrointestinal: Gastrointestinal: Denies abdominal pain, Denies diarrhea, Denies nausea and Denies vomiting Genitourinary: Genitourinary: Denies hematuria Musculoskeletal: Musculoskeletal: Denies myalgias Integumentary/Breasts: Skin/Breast: Denies rash Neurologic: Denies confusion and Denies headache(s) Psychiatric: Psychiatric: Denies confusion Endocrine: Endocrine: Denies fatigue Hematologic/Lymphatic: Hematologic/Lymphatic: Denies easy bleeding and Denies easy bruising Allergic/Immunologic: Allergic/Immunologic: Denies wheezing FOR[facility]LY [facility] Medical History Right foot infection (Unknown) Osteomyelitis of left foot Osteomyelitis Wound cellulitis Osteomyelitis Positive colorectal cancer screening using Cologuard test Osteomyelitis History of blood transfusion On anticoagulant therapy Iron deficiency anemia Decubitus ulcer of right ischial tuberosity region Diabetes Hx pulmonary embolism HTN (hypertension) Paraplegia Family History Father Mother Brother No problems noted. Sister No problems noted. Sister No problems noted. Sister No problems noted. Son No problems noted. Son No problems noted. Son No problems noted. Son No problems noted. Daughter No problems noted. Daughter No problems noted. Surgical History Hx of skin graft Hx of endoscopy Status post debridement Hx of colonoscopy Hx of foot surgery History of spinal surgery Social History Household Members: Family Household Members Other:: roommate Housing: House Are you a primary career coach to a significant other at home: No Do you presently have visiting nurse or other home services: Yes Alcohol intake: former Comment: Paraplegic Patient Tobacco Use Status: Never used Tobacco Smoked in Last 30 Days: No Second Hand Smoke Exposure: No Use of substances other than those prescribed or required for medical reasons: No Advance Directives: No Advance Directives Information Provided: Yes Advance Directives Date on File: 03/10/21 service: No Current occupational status: disabled Narrative: No smoking, alcohol or drug use Meds Allergies Allergy/AdvReac Type Severity Reaction Status Date / Time levofloxacin (From LEVAQUIN) Allergy Intermediate HIVES, Verified 01/10/25 16:16 SKIN RASH shellfish derived Allergy Intermediate itching Verified 01/10/25 16:16 throat Active Medications: Current Medications Acetaminophen (Acetaminophen 325 Mg Tablet) 975 mg PO Q6H PRN PRN Reason: Pain, Mild 1-3,fever,headache Albuterol/Ipratropium (Albuterol/Iprat 2.5/0.5mg 3 Ml Ampul.Neb) 3 ml INHALE Q4H PRN PRN Reason: wheezing, shortness of breath Apixaban (Apixaban 5 Mg Tablet) 5 mg PO BID NETO Aspirin (Aspirin Enteric Coated 81 Mg Tablet.) 81 mg PO DAILY NETO Baclofen (Baclofen 20 Mg Tablet) 40 mg PO TID [facility] Calcium Carbonate (Calcium Carbonate 750 Mg Tab.Chew) 750 mg PO Q4H PRN PRN Reason: Heartburn Cyanocobalamin (Cyanocobalamin (Vitamin B-12) 1,000 Mcg Tablet) 1,000 mcg PO DAILY [facility] Dextrose (Dextrose 50 % 25 Gm/50 Ml Syringe) 25 gm IVPUSH Q15M PRN; Protocol PRN Reason: per Hypoglycemia Standing Ord. Gabapentin (Gabapentin 400 Mg Capsule) 800 mg PO BID [facility] Glucose (Glucose Gel 15 Gm Gel..Gram.) 15 gm PO Q15M PRN; Protocol PRN Reason: per Hypoglycemia Standing Ord. Insulin Glargine (Insulin Glargine,Hum.Rec.Anlog 100 Unit/Ml 10 Ml Vial) 8 unit SUBCUT BEDTIME [facility] Insulin Human Lispro (Insulin Lispro 100 Unit/Ml 3 Ml Vial) 0 unit SUBCUT QIDACHS [facility]; Protocol Lisinopril (Lisinopril 5 Mg Tablet) 5 mg PO DAILY [facility]; Protocol Loratadine (Loratadine 10 Mg Tablet) 10 mg PO DAILY [facility] Magnesium Hydroxide (Milk Of Magnesia 30 Ml Oral.Susp) 30 ml PO DAILY PRN PRN Reason: Constipation Melatonin (Melatonin 3 Mg Tablet) 6 mg PO BEDTIME PRN PRN Reason: Insomnia Non-Formulary Medication (Ferrous Sulfate [Iron (Ferrous Sulfate)]) 325 mg PO BID [facility] Ondansetron HCl (Ondansetron Hcl 4 Mg/2 Ml Vial) 4 mg IVPUSH Q8H PRN PRN Reason: Nausea and Vomiting Oxycodone HCl (Oxycodone Hcl Immed Release 5 Mg Tablet) 5 mg PO Q6H PRN PRN Reason: Pain, Severe (Pain Scale 7-10) Sodium Chloride (0.9 % Sodium Chloride Flush 3 Ml Syringe) 3 ml IVFLUSH QSHIFT [facility] Tramadol HCl (Tramadol Hcl 50 Mg Tablet) 50 mg PO Q6H PRN PRN Reason: Pain, Moderate(Pain Scale 4-6) Home Medications ?Medication ?Instructions ?Recorded ?Confirmed ?Last Taken ?Type gabapentin 800 mg tablet 800 mg PO BID 02/22/20 01/10/25 01/10/25 History lisinopril 5 mg tablet 5 mg PO DAILY 02/22/20 01/10/25 01/10/25 History metformin 1,000 mg tablet 1,000 mg PO BID 02/22/20 01/10/25 01/10/25 History aspirin 81 mg tablet,delayed 1 tab PO DAILY 09/04/20 01/10/25 01/10/25 History release apixaban 5 mg tablet (Eliquis) 1 tab PO BID 03/03/21 01/10/25 01/10/25 History Held on 12/28/21. Instructions: Resume on 12/29/21. ibuprofen 800 mg tablet 800 mg PO Q6H PRN Pain 07/08/21 01/10/25 Unknown History acetaminophen 500 mg tablet 500 mg PO Q8H PRN Pain 01/14/22 01/10/25 Unknown History blood sugar diagnostic (FreeStyle #10 ea 01/14/22 09/25/24 Unknown History Lite Strips) lancets 33 gauge (TRUEplus Lancets) #100 ea 01/14/22 09/25/24 Unknown History pen needle, diabetic 31 gauge x #50 ea 01/14/22 09/25/24 Unknown History 1/ (UltiCare Pen Needle) baclofen 20 mg tablet 40 mg PO TID 03/26/24 01/10/25 01/10/25 History insulin glargine-yfgn 100 unit/mL 12 - 20 unit subcut BEDTIME 01/10/25 01/10/25 01/09/25 History (3 mL) subcutaneous pen (Semglee (insulin glargine-yfgn) Pen) loratadine 10 mg tablet 10 mg PO DAILY 01/10/25 01/10/25 01/10/25 History Physical Exam Vital Signs and Narrative: Vital Signs: Last Vital Signs Temp 99.2 F 01/10/25 16:48 Pulse 84 01/10/25 20:00 Resp 16 01/10/25 20:00 BP 117/61 01/10/25 20:00 Pulse Ox 96 01/10/25 20:00 O2 Del Method Nasal Cannula 01/10/25 20:00 O2 Flow Rate 3 01/10/25 18:04 BMI result Body Mass Index 26.7 General: AOx3, no acute distress, seen with corporate secretary Resp: Expiratory wheezing, no crackles CVS: S1, S2, RRR GI: +BS, NT, no distention Skin: Warm, dry Neuro: PERRL, able to move upper extremities without difficulty Extremities: No pitting edema Psych: Appropriate affect Const: General: No confusion Orientation/consciousness: No confusion Neuro: General: No confusion Results Labs 01/10/25 16:31 01/10/25 16:31 Labs: Laboratory Results - last 24 hr 01/10/25 01/10/25 01/10/25 16:31 17:20 21:00 MCV 85.3 MCH 26.2 L MCHC 30.8 L RDW 15.2 Plt Count 263 MPV 9.5 Immature Gran % (Auto) 0.4 Neut % (Auto) 68.9 Lymph % (Auto) 19.9 L [place] % (Auto) 6.7 Eos % (Auto) 3.3 Baso % (Auto) 0.8 Lymph # (Auto) 1.0 L [place] # (Auto) 0.4 Eos # (Auto) 0.2 Baso # (Auto) 0.0 Abs Immat Gran (auto) 0.02 Absolute Neuts (auto) 3.6 Absolute Nucleated RBC 0.000 Nucleated RBC % (auto) 0.0 Anion Gap 11 L Estim Creat Clear Calc 119.2 Estimated GFR > 60 Random Glucose 103 Lactic Acid 1.0 Calcium 8.9 Magnesium 2.1 Procalcitonin 0.14 Urine Color Yellow Urine Appearance Cloudy Urine pH 7.5 Ur Specific [place] 1.015 Urine Protein Trace Urine Glucose (UA) Negative Urine Ketones Negative Urine Blood Negative Urine Nitrite Positive H Ur Leukocyte Esterase Large (3+) H Urine RBC 0-2 Urine WBC 21-50 Ur Squamous Epith Cells 0-2 Urine Bacteria 4+ Hyaline Casts 0-2 Influenza Type A (PCR) NEGATIVE Influenza Type B (PCR) NEGATIVE RSV RNA Qual (PCR) NEGATIVE SARS-CoV-2 RNA (RT-PCR) NEGATIVE Imaging Radiologist's Impressions: Impressions Chest X-Ray 01/10/25 15:31 IMPRESSION: No active pulmonary disease. Electronically signed by: Twan Frye MD 01/10/2025 04:55 PM EDT Assessment and Plan (1) Acute hypoxic respiratory failure: Status: Acute (2) Urinary tract infection: Status: Acute (3) Decubital ulcer: Status: Acute Plan Patient is a 69-year-old [place]-speaking male with a past medical history significant for paraplegia, insulin-dependent diabetes, history of PE (1997), hypertension, who presented to the ED due to hypoxia saturating at 88% on room air. Acute hypoxic respiratory failure, unknown origin ? new onset COPD - no leukocytosis, no tachycardia or tachypnea, lactic acid normal, blood cultures x2 pending, no sepsis - mild expiratory wheezing on exam - chest x-ray negative - CTA negative for PE or acute pulmonary process. ? Hydrops gallbladder - COVID/flu/RSV negative - no evidence of fluid overload on exam - bedside echo normal, no evidence of pericardial effusion - bedside thoracic ultrasound and lower extremity ultrasound also negative - patient received 1 L NS in ED, blood pressures stable - respiratory panel pending - check BNP - echo - monitor CBC and BNP - titrate oxygen as needed - duo nebs every 4 hours as needed Urinary tract infection - patient with chronic Juarez catheter - UA positive, culture pending - patient is started on Zosyn in ED, switch to ceftriaxone, no previous urine cultures indicating need for Zosyn - follow CBC and BNP ? Hydrops gallbladder on CT - patient not having any abdominal pain - check LFTs - consider ultrasound if LFTs elevated Chronic decubitus ulcer - no evidence of active infection - no leukocytosis - wound care consult Insulin-dependent diabetes - sliding scale insulin - Lantus nightly - hold metformin - diabetic diet History of PE - CTA negative for PE, bedside Doppler ultrasound bilateral lower extremities negative - continue Eliquis HTN - continue lisinopril Paraplegia - continue gabapentin, baclofen Full code VTE prophylaxis: Eliquis Patient with acute hypoxic respiratory failure complicated by UTI, requiring admission for at least 2 midnight stay for further evaluation and monitoring. Quality Stroke Does the patient have a stroke diagnosis?: No VTE Prior VTE?: Yes VTE Risk Level:: Medical - moderate - high VTE Device Contraindication: Treatment Not Indicated VTE Drug Contraindication: N/A - Med Ordered
[2025-01-10 22:50] LABS: Alanine Aminotransferase 7 U/L (0-40); Albumin Level 3.4 g/dL (3.5-5.0); Alkaline Phosphatase 85 U/L (39-117); Aspartate Amino Transferase 21 U/L (5-37); Total Protein 7.8 g/dL (6.5-8.0)
[2025-01-10 22:56] LABS: B Type Natriuretic Peptide 26 pg/mL (<100)
--- NOTE | 2025-01-10 23:54 | MHC.EDTECH ---
pt poc bs 53, nurse aware, orange juice given will recheck in 15
[2025-01-10 23:55] LABS: Glucose, Whole Blood 53 mg/dL (60-115)
[2025-01-11] VITALS (10 sets, daily range): BP systolic 98–133; BP diastolic 43–80; PULSE 80–108; RESP 17–20; TEMP 36–37.9; O2SAT 91–97; BMI 26.9
[2025-01-11 00:15] LABS: Glucose, Whole Blood 65 mg/dL (60-115)
[2025-01-11 00:35] LABS: Glucose, Whole Blood 100 mg/dL (60-115)
[2025-01-11] MEDS: Lactated Ringers 1,000 ML 999 ML IV (01:14)
[2025-01-11] MEDS: 0.9 % Sodium Chloride Flush 3 ML SYRINGE IVFLUSH ×3 (01:16→21:00)
--- NOTE | 2025-01-11 04:33 | PC.NURSE ---
[facility] nuclear monitoring technician, upon taking extra linen out from under patient, this RN noted a dressing soiled with stool long-term off patient. All wounds cleansed with normal saline and Left hip and right ischial tuberosity both packed with saline soaked gauze and covered with dressing per order from Edwina Jose until wound care sees patient. Left hip wound measured at 6 cm x 5.5 cm x 0.8 cm. Right ischial tuberosity wound measures 5cm x 5 cm x 2.3 cm.
[2025-01-11 06:28] LABS: MANUAL DIFF FLAG NO
[2025-01-11 06:59] LABS: Hematocrit 31.1 % (42.0-52.0); Hemoglobin 9.4 g/dl (14.0-18.0); Imm Gran Abs Auto 0.02 X10*3/uL (0.00-0.03); Imm Gran Pct Auto 0.4 % (0.0-0.4); Lymphocytes Absolute Auto 0.6 X10*3/uL (1.2-4.9); Mean Corpuscular HGB Conc 30.2 g/dl (31.0-36.0); Mean Corpuscular Hemoglobin 26.1 pg (27.0-33.0); Mean Corpuscular Volume 86.4 fL (80.0-98.0); NRBC Abs Auto 0.000 X10*3/uL (0.0-0.012); NRBC Pct Auto 0.0 /100WBC (0.0-0.2); Platelet Count 254 X10*3/uL (160-400); Red Blood Count 3.60 X10*6/uL (4.60-5.80); White Blood Count 5.0 X10*3/uL (4.8-10.8)
--- NOTE | 2025-01-11 07:00 | CA_ITS ---
Transthoracic Echocardiogram Patient (Last, First, Middle): Israel Monroy L Gender: Male Date of : 1955 Age: 69 Procedure Date: 01/11/2025 Procedure Type: Transthoracic Echocardiogram Location: [facility] Height: 187.96 cm Weight: 93.9 kg BSA: 2.21 m2 Heart Rate: bpm BP: 122 / 52 mmHg Chapter Relations Administrator: Referring MD: Edwina Garcia PA-C Symptoms: hypoxia, assess for CHF Study Quality: Adequate w Contrast ECG Rhythm: Sinus Conclusions: - The left ventricular systolic function is normal. The calculated ejection fraction is 69% by biplane method. - No obvious valvular pathology seen on this study. - Mild pulmonary hypertension is present. Findings Procedure Information Contrast agent, definity, is being given per protocol without apparent complications. Left Ventricle Normal left ventricular cavity size. There is mildly increased left ventricular wall thickness. The left ventricular systolic function is normal. The calculated ejection fraction is 69% by biplane method. There is no evidence of regional wall motion abnormalities. Diastolic function is normal for age. Right Ventricle Mildly increased right ventricular cavity size. There is normal right ventricular systolic function. Atria The left atrium is normal in size. The right atrium is mildly dilated. Aortic Valve There is a normal trileaflet aortic valve. There is no aortic valve stenosis. There is no aortic valve regurgitation. Mitral Valve The mitral valve appears normal. There is no mitral valve regurgitation. There is no mitral valve stenosis. Pulmonic Valve The pulmonic valve is likely normal. Tricuspid Valve There is trace tricuspid valve regurgitation. Mild pulmonary hypertension is present. Great Vessels The sinuses of valsalva is normal in size. There is mild dilatation of the ascending aorta measuring 3.90 cm. Venous The inferior vena cava is normal in size and collapses greater than 50% with inspiration. Pericardium/Pleural There is no evidence of pericardial effusion. Prior Study Comparison No significant change compared to prior study dated: 04/18/2024. Recommendations, Care & Conclusions No obvious valvular pathology seen on this study. Measurements 2D Linear Measurements IVSd: 1.21 0.6-0.9/0.6-1.0 cm LVIDd: 3.82 3.9-5.3/4.2-5.9 cm LVIDd Index: 1.73 2.4-3.2/2.2-3.1 cm/m2 LVIDs: 2.56 2.0-3.6 cm LVPWd: 1.20 0.7-1.1 cm Ao Root: 3.70 2.1-3.5 cm LA Diam: 2.80 2.7-3.8/3.0-4.0 cm LAIDs Index: 1.27 1.5-2.3 cm/m2 LV Mass: 193.50 67-162/88-224 g LV Mass Index: 87.56 43-95/49-115 g/m2 LVOT Diam: 2.40 3.0+(-)1.3 cm 2D Systolic Function EF 4C: 62.70 >55% EF 2C: 74.40 >55% EF BiP: 68.70 >55% Mitral Valve MV Pk E: 0.48 MV PK A: 0.60 MV Decel Time: 116.00 E/A: 0.80 E'Lateral: 5.87 E'Medial: 7.29 E/E' Med: 6.60 E/E' Lat: 8.20 PHT: 34.00 MVA PHT: 6.47 Decel [place]: 4.19 Aortic Valve AoV Pk Jam: 1.54 AoV Mn Jam: 1.14 AoV VTI: 0.26 AoV Pk Grad: 9.00 Aov Mn Grad: 6.00 ISELA Cont.VTI: 3.53 LVOT LVOT Pk Jam: 1.01 LVOT Mn Jam: 0.71 LVOT VTI: 0.20 LVOT Pk Grad: 4.00 LVOT Mn Grad: 3.00 LVOT Diam: 2.40 LVOT Area: 4.52 Diastolic Function MV Pk E: 0.48 MV Pk A: 0.60 E/A: 0.80 E'Medial: 7.29 E/E' Med: 6.60 E' Laterial: 5.87 E/E' Lat: 8.20 Right Ventricle TAPSE (mm): 29.00 TVS' Jam: 14.00 Tricuspid Valve TR Pk Jam: 3.20 TR Pk Grad: 41.00 RA Press: 3.00 RVSP: 44.00 Great Vessels Aorta Ao Root-2D: 3.70 2.0-3.7 cm Ao Asc: 3.90 2.1-3.4 cm Pulmonary Valve PV Pk Jam: 1.27 Peak PV Grad: 6.00 Updated in Other Vendor System with Status of Final Lobito Meneses MD electronically signed on 01/11/2025 3:17:38 PM with status of Final
[2025-01-11 07:06] LABS: Glucose, Whole Blood 124 mg/dL (60-115)
[2025-01-11 07:11] LABS: Blood Urea Nitrogen 10 mg/dL (9-16); Calcium 8.8 mg/dL (8.4-10.2); Creatinine Clr Calc Pharmacy 135.0; Estimated Glomerular Filt Rate > 60
[2025-01-11 07:19] LABS: Anion Gap 12 (12-20); Carbon Dioxide 28 mmol/L (22-29); Chloride 105 mmol/L (96-108); Potassium 4.7 mmol/L (3.3-5.1); Sodium 140 mmol/L (135-145)
[2025-01-11] MEDS: Aspirin Enteric Coated 81 MG TABLET.DR PO (08:03)
[2025-01-11] MEDS: Ferrous Sulfate 324 MG TABLET.DR PO ×2 (08:06→21:00)
[2025-01-11 11:52] LABS: Glucose, Whole Blood 142 mg/dL (60-115)
[2025-01-11 12:16] LABS: Chlamydia pneumoniae PCR Not Detected (Not Detect.); Coronavirus 229E PCR Not Detected (Not Detect.); Coronavirus HKU1 PCR Not Detected (Not Detect.); Coronavirus NL63 PCR Not Detected (Not Detect.); Coronavirus OC43 PCR Not Detected (Not Detect.); RSV PCR Not Detected (Not Detect.); Rhino/Enterovirus PCR Detected (Not Detect.)
--- NOTE | 2025-01-11 12:26 | HO.PM.IMCN ---
History of Present Illness Data of Consult Primary Care Provider: Unknown Physician [facility] Medical History Right foot infection (Unknown) Osteomyelitis of left foot Osteomyelitis Wound cellulitis Osteomyelitis Positive colorectal cancer screening using Cologuard test Osteomyelitis History of blood transfusion On anticoagulant therapy Iron deficiency anemia Decubitus ulcer of right ischial tuberosity region Diabetes Hx pulmonary embolism HTN (hypertension) Paraplegia Family History Father Mother Brother No problems noted. Sister No problems noted. Sister No problems noted. Sister No problems noted. Son No problems noted. Son No problems noted. Son No problems noted. Son No problems noted. Daughter No problems noted. Daughter No problems noted. Surgical History Hx of skin graft Hx of endoscopy Status post debridement Hx of colonoscopy Hx of foot surgery History of spinal surgery Social History Household Members: Family Household Members Other:: roommate Housing: House Are you a primary rn medicare to a significant other at home: No Do you presently have visiting nurse or other home services: Yes Alcohol intake: former Comment: Paraplegic Patient Tobacco Use Status: Never used Tobacco Smoked in Last 30 Days: No Second Hand Smoke Exposure: No Use of substances other than those prescribed or required for medical reasons: No Advance Directives: No Advance Directives Information Provided: Yes Advance Directives Date on File: 03/10/21 service: No Current occupational status: disabled Meds Allergies Allergy/AdvReac Type Severity Reaction Status Date / Time levofloxacin (From LEVAQUIN) Allergy Intermediate HIVES, Verified 01/10/25 16:16 SKIN RASH shellfish derived Allergy Intermediate itching Verified 01/10/25 16:16 throat Active Medications: Current Medications Acetaminophen (Acetaminophen 325 Mg Tablet) 975 mg PO Q6H PRN PRN Reason: Pain, Mild 1-3,fever,headache Last Admin: 01/11/25 04:21 Dose: 975 mg Albuterol/Ipratropium (Albuterol/Iprat 2.5/0.5mg 3 Ml Ampul.Neb) 3 ml INHALE Q4H PRN PRN Reason: wheezing, shortness of breath Apixaban (Apixaban 5 Mg Tablet) 5 mg PO BID [facility] Last Admin: 01/11/25 08:05 Dose: 5 mg Aspirin (Aspirin Enteric Coated 81 Mg Tablet.) 81 mg PO DAILY [facility] Last Admin: 01/11/25 08:03 Dose: 81 mg Baclofen (Baclofen 20 Mg Tablet) 40 mg PO TID [facility] Last Admin: 01/11/25 11:06 Dose: Not Given Calcium Carbonate (Calcium Carbonate 750 Mg Tab.Chew) 750 mg PO Q4H PRN PRN Reason: Heartburn Ceftriaxone Sodium (Ceftriaxone Sodium 1 Gm Vial) 1 gm IVPUSH Q24H [facility] Last Admin: 01/10/25 23:04 Dose: 1 gm Cyanocobalamin (Cyanocobalamin (Vitamin B-12) 1,000 Mcg Tablet) 1,000 mcg PO DAILY [facility] Last Admin: 01/11/25 08:06 Dose: 1,000 mcg Dextrose (Dextrose 50 % 25 Gm/50 Ml Syringe) 25 gm IVPUSH Q15M PRN; Protocol PRN Reason: per Hypoglycemia Standing Ord. Ferrous Sulfate (Ferrous Sulfate 324 Mg Tablet.) 324 mg PO BID [facility] Last Admin: 01/11/25 08:06 Dose: 324 mg Gabapentin (Gabapentin 400 Mg Capsule) 400 mg PO DAILY [facility] Gabapentin (Gabapentin 400 Mg Capsule) 800 mg PO BEDTIME [facility] Glucose (Glucose Gel 15 Gm Gel..Gram.) 15 gm PO Q15M PRN; Protocol PRN Reason: per Hypoglycemia Standing Ord. Insulin Glargine (Insulin Glargine,Hum.Rec.Anlog 100 Unit/Ml 10 Ml Vial) 8 unit SUBCUT BEDTIME [facility] Insulin Human Lispro (Insulin Lispro 100 Unit/Ml 3 Ml Vial) 0 unit SUBCUT QIDACHS [facility]; Protocol Last Admin: 01/11/25 12:19 Dose: Not Given Lisinopril (Lisinopril 5 Mg Tablet) 5 mg PO DAILY [facility]; Protocol Last Admin: 01/11/25 08:06 Dose: 5 mg Loratadine (Loratadine 10 Mg Tablet) 10 mg PO DAILY [facility] Last Admin: 01/11/25 08:44 Dose: 10 mg Magnesium Hydroxide (Milk Of Magnesia 30 Ml Oral.Susp) 30 ml PO DAILY PRN PRN Reason: Constipation Melatonin (Melatonin 3 Mg Tablet) 6 mg PO BEDTIME PRN PRN Reason: Insomnia Ondansetron HCl (Ondansetron Hcl 4 Mg/2 Ml Vial) 4 mg IVPUSH Q8H PRN PRN Reason: Nausea and Vomiting Last Admin: 01/11/25 07:59 Dose: 4 mg Oxycodone HCl (Oxycodone Hcl Immed Release 5 Mg Tablet) 5 mg PO Q6H PRN PRN Reason: Pain, Severe (Pain Scale 7-10) Sodium Chloride (0.9 % Sodium Chloride Flush 3 Ml Syringe) 3 ml IVFLUSH [facility] Last Admin: 01/11/25 08:47 Dose: Not Given Tramadol HCl (Tramadol Hcl 50 Mg Tablet) 50 mg PO Q6H PRN PRN Reason: Pain, Moderate(Pain Scale 4-6) Last Admin: 01/11/25 08:22 Dose: 50 mg Home Medications ?Medication ?Instructions ?Recorded ?Confirmed ?Last Taken ?Type gabapentin 800 mg tablet 800 mg PO BEDTIME 02/22/20 01/11/25 12/28/21 06:30 History lisinopril 5 mg tablet 5 mg PO DAILY 02/22/20 01/10/25 01/10/25 History metformin 1,000 mg tablet 1,000 mg PO BID 02/22/20 01/10/25 01/10/25 History aspirin 81 mg tablet,delayed 1 tab PO DAILY 09/04/20 01/10/25 01/10/25 History release apixaban 5 mg tablet (Eliquis) 1 tab PO BID 03/03/21 01/10/25 01/10/25 History Held on 12/28/21. Instructions: Resume on 12/29/21. ibuprofen 800 mg tablet 800 mg PO Q6H PRN Pain 07/08/21 01/10/25 Unknown History acetaminophen 500 mg tablet 500 mg PO Q8H PRN Pain 01/14/22 01/10/25 Unknown History blood sugar diagnostic (FreeStyle #10 ea 01/14/22 09/25/24 Unknown History Lite Strips) lancets 33 gauge (TRUEplus Lancets) #100 ea 01/14/22 09/25/24 Unknown History pen needle, diabetic 31 gauge x #50 ea 01/14/22 09/25/24 Unknown History 05/19 (UltiCare Pen Needle) baclofen 20 mg tablet 40 mg PO TID 03/26/24 01/10/25 01/10/25 History insulin glargine-yfgn 100 unit/mL 12 - 20 unit subcut BEDTIME 01/10/25 01/10/25 01/09/25 History (3 mL) subcutaneous pen (Semglee (insulin glargine-yfgn) Pen) loratadine 10 mg tablet 10 mg PO DAILY 01/10/25 01/10/25 01/10/25 History gabapentin 800 mg tablet 400 mg PO DAILY 01/11/25 01/11/25 Unknown History Physical Exam Vital Signs and Narrative: Vital Signs: Last Vital Signs Temp 98.2 F 01/11/25 10:20 Pulse 102 H 01/11/25 10:20 Resp 20 01/11/25 10:20 BP 133/68 01/11/25 10:20 Pulse Ox 96 01/11/25 10:20 O2 Del Method Nasal Cannula 01/11/25 10:20 O2 Flow Rate 2 01/11/25 10:20 BMI result Body Mass Index 26.9 Results Labs 01/11/25 06:19 01/11/25 06:19 Labs: Laboratory Results - last 24 hr 01/10/25 01/10/25 01/10/25 16:31 17:20 21:00 MCV 85.3 MCH 26.2 L MCHC 30.8 L RDW 15.2 Plt Count 263 MPV 9.5 Immature Gran % (Auto) 0.4 Neut % (Auto) 68.9 Lymph % (Auto) 19.9 L [place] % (Auto) 6.7 Eos % (Auto) 3.3 Baso % (Auto) 0.8 Lymph # (Auto) 1.0 L [place] # (Auto) 0.4 Eos # (Auto) 0.2 Baso # (Auto) 0.0 Abs Immat Gran (auto) 0.02 Absolute Neuts (auto) 3.6 Absolute Nucleated RBC 0.000 Nucleated RBC % (auto) 0.0 Anion Gap 11 L Estim Creat Clear Calc 119.2 Estimated GFR > 60 POC Glucose Random Glucose 103 Lactic Acid 1.0 Calcium 8.9 Magnesium 2.1 Total Bilirubin Direct Bilirubin AST ALT Alkaline Phosphatase B-Natriuretic Peptide Total Protein Albumin Procalcitonin 0.14 Urine Color Yellow Urine Appearance Cloudy Urine pH 7.5 Ur Specific [place] 1.015 Urine Protein Trace Urine Glucose (UA) Negative Urine Ketones Negative Urine Blood Negative Urine Nitrite Positive H Ur Leukocyte Esterase Large (3+) H Urine RBC 0-2 Urine WBC 21-50 Ur Squamous Epith Cells 0-2 Urine Bacteria 4+ Hyaline Casts 0-2 Influenza Type A (PCR) NEGATIVE Influenza Type B (PCR) NEGATIVE RSV RNA Qual (PCR) NEGATIVE SARS-CoV-2 RNA (RT-PCR) NEGATIVE 01/10/25 01/10/25 01/10/25 22:30 22:31 23:51 MCV MCH MCHC RDW Plt Count MPV Immature Gran % (Auto) Neut % (Auto) Lymph % (Auto) [place] % (Auto) Eos % (Auto) Baso % (Auto) Lymph # (Auto) [place] # (Auto) Eos # (Auto) Baso # (Auto) Abs Immat Gran (auto) Absolute Neuts (auto) Absolute Nucleated RBC Nucleated RBC % (auto) Anion Gap Estim Creat Clear Calc Estimated GFR POC Glucose 53 L* Random Glucose Lactic Acid Calcium Magnesium Total Bilirubin 0.1 Direct Bilirubin < 0.2 AST 21 ALT 7 Alkaline Phosphatase 85 B-Natriuretic Peptide 26 Total Protein 7.8 Albumin 3.4 L Procalcitonin Urine Color Urine Appearance Urine pH Ur Specific [place] Urine Protein Urine Glucose (UA) Urine Ketones Urine Blood Urine Nitrite Ur Leukocyte Esterase Urine RBC Urine WBC Ur Squamous Epith Cells Urine Bacteria Hyaline Casts Influenza Type A (PCR) Influenza Type B (PCR) RSV RNA Qual (PCR) SARS-CoV-2 RNA (RT-PCR) 01/11/25 01/11/25 01/11/25 00:11 00:31 06:19 MCV 86.4 MCH 26.1 L MCHC 30.2 L RDW 15.3 Plt Count 254 MPV 10.1 Immature Gran % (Auto) 0.4 Neut % (Auto) 76.4 H Lymph % (Auto) 11.0 L [place] % (Auto) 7.4 Eos % (Auto) 4.2 H Baso % (Auto) 0.6 Lymph # (Auto) 0.6 L [place] # (Auto) 0.4 Eos # (Auto) 0.2 Baso # (Auto) 0.0 Abs Immat Gran (auto) 0.02 Absolute Neuts (auto) 3.8 Absolute Nucleated RBC 0.000 Nucleated RBC % (auto) 0.0 Anion Gap 12 Estim Creat Clear Calc 135.0 Estimated GFR > 60 POC Glucose 65 100 Random Glucose 145 H Lactic Acid Calcium 8.8 Magnesium Total Bilirubin Direct Bilirubin AST ALT Alkaline Phosphatase B-Natriuretic Peptide Total Protein Albumin Procalcitonin Urine Color Urine Appearance Urine pH Ur Specific [place] Urine Protein Urine Glucose (UA) Urine Ketones Urine Blood Urine Nitrite Ur Leukocyte Esterase Urine RBC Urine WBC Ur Squamous Epith Cells Urine Bacteria Hyaline Casts Influenza Type A (PCR) Influenza Type B (PCR) RSV RNA Qual (PCR) SARS-CoV-2 RNA (RT-PCR) 01/11/25 01/11/25 07:03 11:36 MCV MCH MCHC RDW Plt Count MPV Immature Gran % (Auto) Neut % (Auto) Lymph % (Auto) [place] % (Auto) Eos % (Auto) Baso % (Auto) Lymph # (Auto) [place] # (Auto) Eos # (Auto) Baso # (Auto) Abs Immat Gran (auto) Absolute Neuts (auto) Absolute Nucleated RBC Nucleated RBC % (auto) Anion Gap Estim Creat Clear Calc Estimated GFR POC Glucose 124 H 142 H Random Glucose Lactic Acid Calcium Magnesium Total Bilirubin Direct Bilirubin AST ALT Alkaline Phosphatase B-Natriuretic Peptide Total Protein Albumin Procalcitonin Urine Color Urine Appearance Urine pH Ur Specific [place] Urine Protein Urine Glucose (UA) Urine Ketones Urine Blood Urine Nitrite Ur Leukocyte Esterase Urine RBC Urine WBC Ur Squamous Epith Cells Urine Bacteria Hyaline Casts Influenza Type A (PCR) Influenza Type B (PCR) RSV RNA Qual (PCR) SARS-CoV-2 RNA (RT-PCR) Imaging Radiologist's Impressions: Impressions Chest X-Ray 01/10/25 15:31 IMPRESSION: No active pulmonary disease. Electronically signed by: Twan Frye MD 01/10/2025 04:55 PM EDT
--- NOTE | 2025-01-11 12:48 | P.PNIM_ITS ---
Subjective Subjective Date of Service: 01/11/25 Interval History: seen and examined this morning follow up for respiratory failure, possible UTI reports sob and cough for the past few days, no sick contacts no h/o copd, lifelong non-smoker; had asthma until he turned 30 and then it disappeared thinks he may have had a fever at home, denies fever now attempted to wean off oxygen but o2 dropped and supplemental oxygen was replaced Review of Systems Review of Systems: Yes all other systems are reviewed and are negative Cardiovascular Cardiovascular: Denies chest pain and Reports dyspnea Respiratory Respiratory: Reports cough and Reports dyspnea Physical Exam 2 Vital Signs: Vital Signs: Last Vital Signs Temp 98.2 F 01/11/25 10:20 Pulse 102 H 01/11/25 10:20 Resp 20 01/11/25 10:20 BP 133/68 01/11/25 10:20 Pulse Ox 96 01/11/25 10:20 O2 Del Method Nasal Cannula 01/11/25 10:20 O2 Flow Rate 2 01/11/25 10:20 BMI result Body Mass Index 26.9 Const: General: cooperative, comfortable, no acute distress, alert and awake Nutritional Appearance: average body habitus Orientation/consciousness: p atient oriented x3 Resp: Other: scattered wheeze Effort & Inspection: normal respiratory effort, able to speak in complete sentences, no respiratory distress and no use of accessory muscles Cardio: Rate: regular rate GI: Inspection: No distended Palpation (GI): Soft to palpation : Other: chronic [place]no draining clear yellow urine Neuro: Other: LE paraplegia General: patient oriented x3 and CN's II-XI intact bilaterally Objective Data Active Medications Acetaminophen (Acetaminophen 325 Mg Tablet) 975 mg PO Q6H PRN PRN Reason: Pain, Mild 1-3,fever,headache Last Admin: 01/11/25 04:21 Dose: 975 mg Documented By: CHUYITA Albuterol/Ipratropium (Albuterol/Iprat 2.5/0.5mg 3 Ml Ampul.Neb) 3 ml INHALE Q4H PRN PRN Reason: wheezing, shortness of breath Apixaban (Apixaban 5 Mg Tablet) 5 mg PO BID [facility] Last Admin: 01/11/25 08:05 Dose: 5 mg Documented By: MIKY Aspirin (Aspirin Enteric Coated 81 Mg Tablet.) 81 mg PO DAILY [facility] Last Admin: 01/11/25 08:03 Dose: 81 mg Documented By: MIKY Baclofen (Baclofen 20 Mg Tablet) 40 mg PO TID [facility] Last Admin: 01/11/25 11:06 Dose: Not Given Documented By: RAEGAN Non-Admin Reason: Not In Room Calcium Carbonate (Calcium Carbonate 750 Mg Tab.Chew) 750 mg PO Q4H PRN PRN Reason: Heartburn Ceftriaxone Sodium (Ceftriaxone Sodium 1 Gm Vial) 1 gm IVPUSH Q24H [facility] Last Admin: 01/10/25 23:04 Dose: 1 gm Documented By: ANAND Cyanocobalamin (Cyanocobalamin (Vitamin B-12) 1,000 Mcg Tablet) 1,000 mcg PO DAILY [facility] Last Admin: 01/11/25 08:06 Dose: 1,000 mcg Documented By: MIKY Dextrose (Dextrose 50 % 25 Gm/50 Ml Syringe) 25 gm IVPUSH Q15M PRN; Protocol PRN Reason: per Hypoglycemia Standing Ord. Ferrous Sulfate (Ferrous Sulfate 324 Mg Tablet.) 324 mg PO BID [facility] Last Admin: 01/11/25 08:06 Dose: 324 mg Documented By: MIKY Gabapentin (Gabapentin 400 Mg Capsule) 400 mg PO DAILY [facility] Gabapentin (Gabapentin 400 Mg Capsule) 800 mg PO BEDTIME [facility] Glucose (Glucose Gel 15 Gm Gel..Gram.) 15 gm PO Q15M PRN; Protocol PRN Reason: per Hypoglycemia Standing Ord. Insulin Glargine (Insulin Glargine,Hum.Rec.Anlog 100 Unit/Ml 10 Ml Vial) 8 unit SUBCUT BEDTIME [facility] Insulin Human Lispro (Insulin Lispro 100 Unit/Ml 3 Ml Vial) 0 unit SUBCUT QIDACHS [facility]; Protocol Last Admin: 01/11/25 12:19 Dose: Not Given Documented By: RAEGAN Non-Admin Reason: No Insulin Coverage Lisinopril (Lisinopril 5 Mg Tablet) 5 mg PO DAILY [facility]; Protocol Last Admin: 01/11/25 08:06 Dose: 5 mg Documented By: MIKY Loratadine (Loratadine 10 Mg Tablet) 10 mg PO DAILY [facility] Last Admin: 01/11/25 08:44 Dose: 10 mg Documented By: MIKY Magnesium Hydroxide (Milk Of Magnesia 30 Ml Oral.Susp) 30 ml PO DAILY PRN PRN Reason: Constipation Melatonin (Melatonin 3 Mg Tablet) 6 mg PO BEDTIME PRN PRN Reason: Insomnia Ondansetron HCl (Ondansetron Hcl 4 Mg/2 Ml Vial) 4 mg IVPUSH Q8H PRN PRN Reason: Nausea and Vomiting Last Admin: 01/11/25 07:59 Dose: 4 mg Documented By: MIKY Oxycodone HCl (Oxycodone Hcl Immed Release 5 Mg Tablet) 5 mg PO Q6H PRN PRN Reason: Pain, Severe (Pain Scale 7-10) Sodium Chloride (0.9 % Sodium Chloride Flush 3 Ml Syringe) 3 ml IVFLUSH [facility] Last Admin: 01/11/25 08:47 Dose: Not Given Documented By: SHASHA Non-Admin Reason: IV Running Tramadol HCl (Tramadol Hcl 50 Mg Tablet) 50 mg PO Q6H PRN PRN Reason: Pain, Moderate(Pain Scale 4-6) Last Admin: 01/11/25 08:22 Dose: 50 mg Documented By: MIKY Labs 01/11/25 06:19 01/11/25 06:19 Labs: Laboratory Results - last 24 hr 01/10/25 01/10/25 01/10/25 16:31 17:20 21:00 MCV 85.3 MCH 26.2 L MCHC 30.8 L RDW 15.2 Plt Count 263 MPV 9.5 Immature Gran % (Auto) 0.4 Neut % (Auto) 68.9 Lymph % (Auto) 19.9 L [place] % (Auto) 6.7 Eos % (Auto) 3.3 Baso % (Auto) 0.8 Lymph # (Auto) 1.0 L [place] # (Auto) 0.4 Eos # (Auto) 0.2 Baso # (Auto) 0.0 Abs Immat Gran (auto) 0.02 Absolute Neuts (auto) 3.6 Absolute Nucleated RBC 0.000 Nucleated RBC % (auto) 0.0 Anion Gap 11 L Estim Creat Clear Calc 119.2 Estimated GFR > 60 POC Glucose Random Glucose 103 Lactic Acid 1.0 Calcium 8.9 Magnesium 2.1 Total Bilirubin Direct Bilirubin AST ALT Alkaline Phosphatase B-Natriuretic Peptide Total Protein Albumin Procalcitonin 0.14 Urine Color Yellow Urine Appearance Cloudy Urine pH 7.5 Ur Specific [place] 1.015 Urine Protein Trace Urine Glucose (UA) Negative Urine Ketones Negative Urine Blood Negative Urine Nitrite Positive H Ur Leukocyte Esterase Large (3+) H Urine RBC 0-2 Urine WBC 21-50 Ur Squamous Epith Cells 0-2 Urine Bacteria 4+ Hyaline Casts 0-2 Influenza Type A (PCR) NEGATIVE Influenza Type B (PCR) NEGATIVE RSV RNA Qual (PCR) NEGATIVE SARS-CoV-2 RNA (RT-PCR) NEGATIVE 01/10/25 01/10/25 01/10/25 22:30 22:31 23:51 MCV MCH MCHC RDW Plt Count MPV Immature Gran % (Auto) Neut % (Auto) Lymph % (Auto) [place] % (Auto) Eos % (Auto) Baso % (Auto) Lymph # (Auto) [place] # (Auto) Eos # (Auto) Baso # (Auto) Abs Immat Gran (auto) Absolute Neuts (auto) Absolute Nucleated RBC Nucleated RBC % (auto) Anion Gap Estim Creat Clear Calc Estimated GFR POC Glucose 53 L* Random Glucose Lactic Acid Calcium Magnesium Total Bilirubin 0.1 Direct Bilirubin < 0.2 AST 21 ALT 7 Alkaline Phosphatase 85 B-Natriuretic Peptide 26 Total Protein 7.8 Albumin 3.4 L Procalcitonin Urine Color Urine Appearance Urine pH Ur Specific [place] Urine Protein Urine Glucose (UA) Urine Ketones Urine Blood Urine Nitrite Ur Leukocyte Esterase Urine RBC Urine WBC Ur Squamous Epith Cells Urine Bacteria Hyaline Casts Influenza Type A (PCR) Influenza Type B (PCR) RSV RNA Qual (PCR) SARS-CoV-2 RNA (RT-PCR) 01/11/25 01/11/25 01/11/25 00:11 00:31 06:19 MCV 86.4 MCH 26.1 L MCHC 30.2 L RDW 15.3 Plt Count 254 MPV 10.1 Immature Gran % (Auto) 0.4 Neut % (Auto) 76.4 H Lymph % (Auto) 11.0 L [place] % (Auto) 7.4 Eos % (Auto) 4.2 H Baso % (Auto) 0.6 Lymph # (Auto) 0.6 L [place] # (Auto) 0.4 Eos # (Auto) 0.2 Baso # (Auto) 0.0 Abs Immat Gran (auto) 0.02 Absolute Neuts (auto) 3.8 Absolute Nucleated RBC 0.000 Nucleated RBC % (auto) 0.0 Anion Gap 12 Estim Creat Clear Calc 135.0 Estimated GFR > 60 POC Glucose 65 100 Random Glucose 145 H Lactic Acid Calcium 8.8 Magnesium Total Bilirubin Direct Bilirubin AST ALT Alkaline Phosphatase B-Natriuretic Peptide Total Protein Albumin Procalcitonin Urine Color Urine Appearance Urine pH Ur Specific [place] Urine Protein Urine Glucose (UA) Urine Ketones Urine Blood Urine Nitrite Ur Leukocyte Esterase Urine RBC Urine WBC Ur Squamous Epith Cells Urine Bacteria Hyaline Casts Influenza Type A (PCR) Influenza Type B (PCR) RSV RNA Qual (PCR) SARS-CoV-2 RNA (RT-PCR) 01/11/25 01/11/25 07:03 11:36 MCV MCH MCHC RDW Plt Count MPV Immature Gran % (Auto) Neut % (Auto) Lymph % (Auto) [place] % (Auto) Eos % (Auto) Baso % (Auto) Lymph # (Auto) [place] # (Auto) Eos # (Auto) Baso # (Auto) Abs Immat Gran (auto) Absolute Neuts (auto) Absolute Nucleated RBC Nucleated RBC % (auto) Anion Gap Estim Creat Clear Calc Estimated GFR POC Glucose 124 H 142 H Random Glucose Lactic Acid Calcium Magnesium Total Bilirubin Direct Bilirubin AST ALT Alkaline Phosphatase B-Natriuretic Peptide Total Protein Albumin Procalcitonin Urine Color Urine Appearance Urine pH Ur Specific [place] Urine Protein Urine Glucose (UA) Urine Ketones Urine Blood Urine Nitrite Ur Leukocyte Esterase Urine RBC Urine WBC Ur Squamous Epith Cells Urine Bacteria Hyaline Casts Influenza Type A (PCR) Influenza Type B (PCR) RSV RNA Qual (PCR) SARS-CoV-2 RNA (RT-PCR) Microbiology Microbiology Results: Microbiology 01/10/25 18:28 Urine Culture - Preliminary Urine Catheterized - [place] Catheter Culture too young to evaluate. Assessment and Plan (1) Urinary tract infection: Status: Acute (2) Acute hypoxic respiratory failure: Status: Acute Plan This is a 69-year-old [place]-speaking male with a past medical history significant for paraplegia, insulin-dependent diabetes, history of PE (1997), hypertension, who presented to the ED due to hypoxia saturating at 88% on room air. Acute hypoxic respiratory failure due acute viral bronchitis RPP +for entero/rhinovirus CXR, CTA negative wean oxygen as needed BNP negative, echo report pending probable mild asthma exacerbation due to above po prednisone prn breathing treatments Urinary tract infection chronic [place] catheter culture pending continue IV ceftriaxone ? Hydrops gallbladder on CT US pending Chronic decubitus ulcer no evidence of active infection no leukocytosis wound care consult intermittent low bp readings appears chronic no sepsis Insulin-dependent diabetes SSI, POCs, ADA diet hold metformin continue Lantus History of PE CTA negative for PE, bedside Doppler ultrasound bilateral lower extremities negative continue Eliquis HTN continue lisinopril Paraplegia continue gabapentin, baclofen Full code VTE prophylaxis: Eliquis Patient with acute hypoxic respiratory failure complicated by UTI, requiring ongoing hospital stay for close monitoring of respiratory status/hypoxia Quality Stroke Does the patient have a stroke diagnosis?: No VTE Prior VTE?: Yes VTE Risk Level:: Medical - moderate - high VTE Device Contraindication: Treatment Not Indicated VTE Drug Contraindication: N/A - Med Ordered
[2025-01-11 13:41] LABS: Influenza A H1 PCR Not Detected (Not Detect.); Influenza A H1-2009 PCR Not Detected (Not Detect.); Influenza A H3 PCR Not Detected (Not Detect.); SARS-CoV-2 PCR Not Detected (Not Detect.)
--- NOTE | 2025-01-11 13:51 | MHC.CLN ---
NUTRITION DIET=DIABETIC 2000 KCALS. SKIN WITH MULTIPLE WOUNDS. ADDING ENSURE MAX PROTEIN BID TO PROMOTE WOUND HEALING. SUPPLEMENT PROVIDES 300 KCALS, 60 G PROTEIN. FOLLOW FOR PO INTAKE AND SKIN INTEGRITY. SEE CLINICAL NUTRITION ASSESSMENT 01/11/25.
[2025-01-11 16:19] LABS: Glucose, Whole Blood 102 mg/dL (60-115)
[2025-01-11 20:25] LABS: Glucose, Whole Blood 384 mg/dL (60-115)
[2025-01-11] MEDS: Insulin Glargine,Hum.rec.anlog 100 UNIT/ML 10 ML VIAL 8 UNIT SUBCUT (20:58)
[2025-01-12 03:17] VITALS: BP 119/66; PULSE 76; RESP 18; TEMP 36.3; O2SAT 89
[2025-01-12 04:19] LABS: Glucose, Whole Blood 201 mg/dL (60-115)
--- NOTE | 2025-01-12 06:34 | HO.SKINPHOTO ---
Location: L hip Location: R hip Location: left lower buttock
[2025-01-12 06:56] LABS: MANUAL DIFF FLAG NO
[2025-01-12 07:07] LABS: Hematocrit 34.9 % (42.0-52.0); Hemoglobin 10.5 g/dl (14.0-18.0); Imm Gran Abs Auto 0.01 X10*3/uL (0.00-0.03); Imm Gran Pct Auto 0.3 % (0.0-0.4); Lymphocytes Absolute Auto 1.0 X10*3/uL (1.2-4.9); Mean Corpuscular HGB Conc 30.1 g/dl (31.0-36.0); Mean Corpuscular Hemoglobin 26.1 pg (27.0-33.0); Mean Corpuscular Volume 86.6 fL (80.0-98.0); NRBC Abs Auto 0.000 X10*3/uL (0.0-0.012); NRBC Pct Auto 0.0 /100WBC (0.0-0.2); Platelet Count 224 X10*3/uL (160-400); Red Blood Count 4.03 X10*6/uL (4.60-5.80); White Blood Count 4.0 X10*3/uL (4.8-10.8)
[2025-01-12 07:23] LABS: Anion Gap 14 (12-20); Blood Urea Nitrogen 16 mg/dL (9-16); Calcium 9.0 mg/dL (8.4-10.2); Carbon Dioxide 26 mmol/L (22-29); Chloride 103 mmol/L (96-108); Creatinine Clr Calc Pharmacy 137.3; Estimated Glomerular Filt Rate > 60; Potassium 4.8 mmol/L (3.3-5.1); Sodium 138 mmol/L (135-145)
[2025-01-12 07:27] LABS: Glucose, Whole Blood 189 mg/dL (60-115)
[2025-01-12 07:45] VITALS: BP 132/67; PULSE 91; RESP 18; TEMP 36.2; O2SAT 97
[2025-01-12] MEDS: Ferrous Sulfate 324 MG TABLET.DR PO ×2 (08:43→20:08)
[2025-01-12] MEDS: 0.9 % Sodium Chloride Flush 3 ML SYRINGE IVFLUSH ×3 (08:44→20:09)
[2025-01-12] MEDS: Aspirin Enteric Coated 81 MG TABLET.DR PO (08:44)
--- NOTE | 2025-01-12 08:51 | HO.PM.IMPN ---
Subjective Subjective Date of Service: 01/12/25 Interval History: seen and examined this morning follow up for respiratory failure, possible UTI no sob, dry cough no h/o copd, lifelong non-smoker; had asthma until he turned 30 and then it disappeared Review of Systems Review of Systems: Yes all other systems are reviewed and are negative Cardiovascular Cardiovascular: Denies chest pain and Reports dyspnea Respiratory Respiratory: Reports cough and Reports dyspnea Physical Exam Exam: Exam: Appearing in no acute distress lung sounds are clear to auscultation heart regular rate rhythm, clear S1, S2 positive bowel sounds, abdomen is soft, nontender neuro patient is alert x3, no focal deficits Vital Signs: Vital Signs: Last Vital Signs Temp 97.1 F 01/12/25 07:45 Pulse 91 01/12/25 07:45 Resp 18 01/12/25 07:45 BP 132/67 01/12/25 07:45 Pulse Ox 97 01/12/25 07:45 O2 Del Method Nasal Cannula 01/12/25 07:45 O2 Flow Rate 1 01/12/25 07:45 BMI result Body Mass Index 26.9 Objective Data Active Medications Acetaminophen (Acetaminophen 325 Mg Tablet) 975 mg PO Q6H PRN PRN Reason: Pain, Mild 1-3,fever,headache Last Admin: 01/11/25 17:22 Dose: 975 mg Documented By: CHRISTIN Albuterol/Ipratropium (Albuterol/Iprat 2.5/0.5mg 3 Ml Ampul.Neb) 3 ml INHALE Q4H PRN PRN Reason: wheezing, shortness of breath Apixaban (Apixaban 5 Mg Tablet) 5 mg PO BID [facility] Last Admin: 01/12/25 08:44 Dose: 5 mg Documented By: TRE Aspirin (Aspirin Enteric Coated 81 Mg Tablet.) 81 mg PO DAILY [facility] Last Admin: 01/12/25 08:44 Dose: 81 mg Documented By: TRE Baclofen (Baclofen 20 Mg Tablet) 40 mg PO TID [facility] Last Admin: 01/12/25 08:43 Dose: 40 mg Documented By: TRE Calcium Carbonate (Calcium Carbonate 750 Mg Tab.Chew) 750 mg PO Q4H PRN PRN Reason: Heartburn Ceftriaxone Sodium (Ceftriaxone Sodium 1 Gm Vial) 1 gm IVPUSH Q24H [facility] Last Admin: 01/11/25 22:47 Dose: 1 gm Documented By: SIMON Cyanocobalamin (Cyanocobalamin (Vitamin B-12) 1,000 Mcg Tablet) 1,000 mcg PO DAILY [facility] Last Admin: 01/12/25 08:44 Dose: 1,000 mcg Documented By: TRE Dextrose (Dextrose 50 % 25 Gm/50 Ml Syringe) 25 gm IVPUSH Q15M PRN; Protocol PRN Reason: per Hypoglycemia Standing Ord. Ferrous Sulfate (Ferrous Sulfate 324 Mg Tablet.Dr) 324 mg PO BID [facility] Last Admin: 01/12/25 08:43 Dose: 324 mg Documented By: TRE Gabapentin (Gabapentin 400 Mg Capsule) 400 mg PO DAILY [facility] Last Admin: 01/12/25 08:44 Dose: 400 mg Documented By: TRE Gabapentin (Gabapentin 400 Mg Capsule) 800 mg PO BEDTIME [facility] Last Admin: 01/11/25 21:01 Dose: 800 mg Documented By: SIMON Glucose (Glucose Gel 15 Gm Gel..Gram.) 15 gm PO Q15M PRN; Protocol PRN Reason: per Hypoglycemia Standing Ord. Insulin Glargine (Insulin Glargine,Hum.Rec.Anlog 100 Unit/Ml 10 Ml Vial) 8 unit SUBCUT BEDTIME [facility] Last Admin: 01/11/25 20:58 Dose: 8 unit Documented By: SIMON Insulin Human Lispro (Insulin Lispro 100 Unit/Ml 3 Ml Vial) 0 unit SUBCUT QIDACHS [facility]; Protocol Last Admin: 01/12/25 08:42 Dose: 2 unit Documented By: TRE Lisinopril (Lisinopril 5 Mg Tablet) 5 mg PO DAILY [facility]; Protocol Last Admin: 01/12/25 08:43 Dose: 5 mg Documented By: TRE Loratadine (Loratadine 10 Mg Tablet) 10 mg PO DAILY [facility] Last Admin: 01/12/25 08:44 Dose: 10 mg Documented By: TRE Magnesium Hydroxide (Milk Of Magnesia 30 Ml Oral.Susp) 30 ml PO DAILY PRN PRN Reason: Constipation Melatonin (Melatonin 3 Mg Tablet) 6 mg PO BEDTIME PRN PRN Reason: Insomnia Ondansetron HCl (Ondansetron Hcl 4 Mg/2 Ml Vial) 4 mg IVPUSH Q8H PRN PRN Reason: Nausea and Vomiting Last Admin: 01/11/25 16:58 Dose: 4 mg Documented By: CHRISTIN Oxycodone HCl (Oxycodone Hcl Immed Release 5 Mg Tablet) 5 mg PO Q6H PRN PRN Reason: Pain, Severe (Pain Scale 7-10) Prednisone (Prednisone 20 Mg Tablet) 40 mg PO DAILY [facility] Stop: 01/15/25 09:01 Last Admin: 01/12/25 08:44 Dose: 40 mg Documented By: TRE Sodium Chloride (0.9 % Sodium Chloride Flush 3 Ml Syringe) 3 ml IVFLUSH QSHIFT [facility] Last Admin: 01/12/25 08:44 Dose: 3 ml Documented By: TRE Tramadol HCl (Tramadol Hcl 50 Mg Tablet) 50 mg PO Q6H PRN PRN Reason: Pain, Moderate(Pain Scale 4-6) Last Admin: 01/11/25 08:22 Dose: 50 mg Documented By: MIKY Labs 01/12/25 06:23 01/12/25 06:23 Labs: Laboratory Results - last 24 hr 01/10/25 01/11/25 01/11/25 21:00 11:36 16:14 MCV MCH MCHC RDW Plt Count MPV Immature Gran % (Auto) Neut % (Auto) Lymph % (Auto) [place] % (Auto) Eos % (Auto) Baso % (Auto) Lymph # (Auto) [place] # (Auto) Eos # (Auto) Baso # (Auto) Abs Immat Gran (auto) Absolute Neuts (auto) Absolute Nucleated RBC Nucleated RBC % (auto) Anion Gap Estim Creat Clear Calc Estimated GFR POC Glucose 142 H 102 Random Glucose Calcium Respiratory Panel [place] See Note Adenovirus (Rapid PCR) Not Detected B.pert (TEM-PCR) Not Detected B.parapertussis DNA PCR Not Detected C. pneumoniae DNA (PCR) Not Detected Coronavirus OC43 (PCR) Not Detected Coronavirus HKU1 (PCR) Not Detected Coronavirus 229E (PCR) Not Detected Coronavirus NL63 (PCR) Not Detected Human Metapneumovir PCR Not Detected Influenza A (RT-PCR) Not Detected Influenza A (H1) PCR Not Detected Influ A (H1/09) PCR Not Detected Influenza A (H3) PCR Not Detected Influenza B (RT-PCR) Not Detected M. pneumoniae (PCR) Not Detected Parainfluenza 1 (PCR) Not Detected Parainfluenza 2 (PCR) Not Detected Parainfluenza 3 (PCR) Not Detected Parainfluenza 4 (PCR) Not Detected RSV (PCR) Not Detected Entero/Rhino (PCR) Detected A SARS-CoV-2 RNA (RT-PCR) Not Detected 01/11/25 01/12/25 01/12/25 20:21 04:14 06:23 MCV 86.6 MCH 26.1 L MCHC 30.1 L RDW 14.9 Plt Count 224 MPV 10.5 Immature Gran % (Auto) 0.3 Neut % (Auto) 65.9 Lymph % (Auto) 24.7 [place] % (Auto) 8.6 Eos % (Auto) 0.0 Baso % (Auto) 0.5 Lymph # (Auto) 1.0 L [place] # (Auto) 0.3 Eos # (Auto) 0.0 Baso # (Auto) 0.0 Abs Immat Gran (auto) 0.01 Absolute Neuts (auto) 2.6 Absolute Nucleated RBC 0.000 Nucleated RBC % (auto) 0.0 Anion Gap 14 Estim Creat Clear Calc 137.3 Estimated GFR > 60 POC Glucose 384 H* 201 H Random Glucose 197 H Calcium 9.0 Respiratory Panel [place] Adenovirus (Rapid PCR) B.pert (TEM-PCR) B.parapertussis DNA PCR C. pneumoniae DNA (PCR) Coronavirus OC43 (PCR) Coronavirus HKU1 (PCR) Coronavirus 229E (PCR) Coronavirus NL63 (PCR) Human Metapneumovir PCR Influenza A (RT-PCR) Influenza A (H1) PCR Influ A (H1/09) PCR Influenza A (H3) PCR Influenza B (RT-PCR) M. pneumoniae (PCR) Parainfluenza 1 (PCR) Parainfluenza 2 (PCR) Parainfluenza 3 (PCR) Parainfluenza 4 (PCR) RSV (PCR) Entero/Rhino (PCR) SARS-CoV-2 RNA (RT-PCR) 01/12/25 07:12 MCV MCH MCHC RDW Plt Count MPV Immature Gran % (Auto) Neut % (Auto) Lymph % (Auto) [place] % (Auto) Eos % (Auto) Baso % (Auto) Lymph # (Auto) [place] # (Auto) Eos # (Auto) Baso # (Auto) Abs Immat Gran (auto) Absolute Neuts (auto) Absolute Nucleated RBC Nucleated RBC % (auto) Anion Gap Estim Creat Clear Calc Estimated GFR POC Glucose 189 H Random Glucose Calcium Respiratory Panel [place] Adenovirus (Rapid PCR) B.pert (TEM-PCR) B.parapertussis DNA PCR C. pneumoniae DNA (PCR) Coronavirus OC43 (PCR) Coronavirus HKU1 (PCR) Coronavirus 229E (PCR) Coronavirus NL63 (PCR) Human Metapneumovir PCR Influenza A (RT-PCR) Influenza A (H1) PCR Influ A (H1/09) PCR Influenza A (H3) PCR Influenza B (RT-PCR) M. pneumoniae (PCR) Parainfluenza 1 (PCR) Parainfluenza 2 (PCR) Parainfluenza 3 (PCR) Parainfluenza 4 (PCR) RSV (PCR) Entero/Rhino (PCR) SARS-CoV-2 RNA (RT-PCR) Microbiology Microbiology Results: Microbiology 01/10/25 18:53 Blood Culture - Preliminary Blood - Venous No growth after 24 hours. 01/10/25 18:27 Blood Culture - Preliminary Blood - Venous No growth after 24 hours. 01/10/25 18:28 Urine Culture - Preliminary Urine Catheterized - Juarez Catheter Culture too young to evaluate. Assessment and Plan (1) Urinary tract infection: Status: Acute (2) Acute hypoxic respiratory failure: Status: Acute Plan 69-year-old Iranian-speaking male with a past medical history significant for paraplegia, insulin-dependent diabetes, history of PE (1997), hypertension, who presented to the ED due to hypoxia saturating at 88% on room air. Acute hypoxic respiratory failure due acute viral bronchitis RPP +for entero/rhinovirus CXR, CTA negative wean oxygen as needed BNP negative, echo> EF of 69%, no obvious valvular abnormalities, mild pulmonary hypertension probable mild asthma exacerbation due to above po prednisone prn breathing treatments Urinary tract infection chronic Juarez catheter culture pending continue IV ceftriaxone Hydropic gallbladder on CT Abdominal ultrasound showing distended gallbladder without evidence of coli lithiasis Chronic decubitus ulcer no evidence of active infection no leukocytosis wound care consult intermittent low bp readings appears chronic no sepsis Insulin-dependent diabetes SSI, POCs, ADA diet hold metformin continue Lantus History of PE CTA negative for PE, bedside Doppler ultrasound bilateral lower extremities negative continue Eliquis HTN continue lisinopril Paraplegia continue gabapentin, baclofen Full code VTE prophylaxis: Eliquis Quality Stroke Does the patient have a stroke diagnosis?: No VTE Prior VTE?: Yes VTE Risk Level:: Medical - moderate - high VTE Device Contraindication: Treatment Not Indicated VTE Drug Contraindication: N/A - Med Ordered
[2025-01-12 11:11] LABS: Glucose, Whole Blood 287 mg/dL (60-115)
[2025-01-12 16:00] VITALS: BP 123/63; PULSE 85; RESP 20; TEMP 36.4; O2SAT 97
--- NOTE | 2025-01-12 16:19 | MHC.CM.PN ---
CM MET WITH PT WITH A [employer] PT LIVES WITH HIS S/O WHO ASSISTS WITH CARE WHEN NEEDED PT USES AN ELECTRIC W/C AND CAN SELF TRANSFER HE IS ACTIVE WITH [facility] HCP ON FILE PCP: [facility] DELIVERED DCP: HOME RESUME [facility] BLS TRANSPORT
[2025-01-12 16:50] LABS: Glucose, Whole Blood 293 mg/dL (60-115)
[2025-01-12 19:37] VITALS: BP 107/57; PULSE 96; RESP 18; TEMP 36.7; O2SAT 94
[2025-01-12 20:13] LABS: Glucose, Whole Blood 337 mg/dL (60-115)
[2025-01-12] MEDS: Insulin Glargine,Hum.rec.anlog 100 UNIT/ML 10 ML VIAL 8 UNIT SUBCUT (20:18)
[2025-01-13 03:50] VITALS: BP 121/60; PULSE 88; RESP 16; TEMP 36.3; O2SAT 95
[2025-01-13 06:47] LABS: MANUAL DIFF FLAG NO
[2025-01-13 07:02] LABS: Hematocrit 30.1 % (42.0-52.0); Hemoglobin 9.0 g/dl (14.0-18.0); Imm Gran Abs Auto 0.02 X10*3/uL (0.00-0.03); Imm Gran Pct Auto 0.4 % (0.0-0.4); Lymphocytes Absolute Auto 2.2 X10*3/uL (1.2-4.9); Mean Corpuscular HGB Conc 29.9 g/dl (31.0-36.0); Mean Corpuscular Hemoglobin 25.6 pg (27.0-33.0); Mean Corpuscular Volume 85.8 fL (80.0-98.0); NRBC Abs Auto 0.000 X10*3/uL (0.0-0.012); NRBC Pct Auto 0.0 /100WBC (0.0-0.2); Platelet Count 269 X10*3/uL (160-400); Red Blood Count 3.51 X10*6/uL (4.60-5.80); White Blood Count 5.3 X10*3/uL (4.8-10.8)
[2025-01-13 07:09] LABS: Anion Gap 13 (12-20); Blood Urea Nitrogen 19 mg/dL (9-16); Calcium 8.8 mg/dL (8.4-10.2); Carbon Dioxide 30 mmol/L (22-29); Chloride 103 mmol/L (96-108); Creatinine Clr Calc Pharmacy 137.3; Estimated Glomerular Filt Rate > 60; Potassium 4.7 mmol/L (3.3-5.1); Sodium 141 mmol/L (135-145)
[2025-01-13 07:15] VITALS: BP 107/59; PULSE 84; RESP 16; TEMP 36.3; O2SAT 94
[2025-01-13 07:53] LABS: Glucose, Whole Blood 152 mg/dL (60-115)
--- NOTE | 2025-01-13 08:23 | HO.PM.IMPN ---
Subjective Subjective Date of Service: 01/13/25 Interval History: seen and examined this morning follow up for respiratory failure, possible UTI no sob, dry cough no h/o copd, lifelong non-smoker; had asthma until he turned 30 and then it disappeared Review of Systems Review of Systems: Yes all other systems are reviewed and are negative Cardiovascular Cardiovascular: Denies chest pain and Reports dyspnea Respiratory Respiratory: Reports cough and Reports dyspnea Physical Exam Exam: Exam: Appearing in no acute distress lung sounds are clear to auscultation heart regular rate rhythm, clear S1, S2 positive bowel sounds, abdomen is soft, nontender neuro patient is alert x3, no focal deficits Vital Signs: Vital Signs: Last Vital Signs Temp 97.3 F 01/13/25 07:15 Pulse 84 01/13/25 07:15 Resp 16 01/13/25 07:15 BP 107/59 L 01/13/25 07:15 Pulse Ox 94 01/13/25 07:15 O2 Del Method Nasal Cannula 01/13/25 07:15 O2 Flow Rate 1 01/13/25 07:15 BMI result Body Mass Index 26.9 Objective Data Active Medications Acetaminophen (Acetaminophen 325 Mg Tablet) 975 mg PO Q6H PRN PRN Reason: Pain, Mild 1-3,fever,headache Last Admin: 01/13/25 04:07 Dose: 975 mg Documented By: LIZETH Albuterol/Ipratropium (Albuterol/Iprat 2.5/0.5mg 3 Ml Ampul.Neb) 3 ml INHALE Q4H PRN PRN Reason: wheezing, shortness of breath Apixaban (Apixaban 5 Mg Tablet) 5 mg PO BID [facility] Last Admin: 01/12/25 20:08 Dose: 5 mg Documented By: LIZETH Aspirin (Aspirin Enteric Coated 81 Mg Tablet.) 81 mg PO DAILY [facility] Last Admin: 01/12/25 08:44 Dose: 81 mg Documented By: LEFEBVA Baclofen (Baclofen 20 Mg Tablet) 40 mg PO TID [facility] Last Admin: 01/12/25 20:08 Dose: 40 mg Documented By: LIZETH Calcium Carbonate (Calcium Carbonate 750 Mg Tab.Chew) 750 mg PO Q4H PRN PRN Reason: Heartburn Ceftriaxone Sodium (Ceftriaxone Sodium 1 Gm Vial) 1 gm IVPUSH Q24H [facility] Last Admin: 01/12/25 22:50 Dose: 1 gm Documented By: LIZETH Cyanocobalamin (Cyanocobalamin (Vitamin B-12) 1,000 Mcg Tablet) 1,000 mcg PO DAILY [facility] Last Admin: 01/12/25 08:44 Dose: 1,000 mcg Documented By: TRE Dextrose (Dextrose 50 % 25 Gm/50 Ml Syringe) 25 gm IVPUSH Q15M PRN; Protocol PRN Reason: per Hypoglycemia Standing Ord. Ferrous Sulfate (Ferrous Sulfate 324 Mg Tablet.) 324 mg PO BID [facility] Last Admin: 01/12/25 20:08 Dose: 324 mg Documented By: LIZETH Gabapentin (Gabapentin 400 Mg Capsule) 400 mg PO DAILY [facility] Last Admin: 01/12/25 08:44 Dose: 400 mg Documented By: TRE Gabapentin (Gabapentin 400 Mg Capsule) 800 mg PO BEDTIME [facility] Last Admin: 01/12/25 20:09 Dose: 800 mg Documented By: LIZETH Glucose (Glucose Gel 15 Gm Gel..Gram.) 15 gm PO Q15M PRN; Protocol PRN Reason: per Hypoglycemia Standing Ord. Insulin Glargine (Insulin Glargine,Hum.Rec.Anlog 100 Unit/Ml 10 Ml Vial) 8 unit SUBCUT BEDTIME [facility] Last Admin: 01/12/25 20:18 Dose: 8 unit Documented By: LIZETH Insulin Human Lispro (Insulin Lispro 100 Unit/Ml 3 Ml Vial) 0 unit SUBCUT QIDACHS [facility]; Protocol Last Admin: 01/12/25 20:19 Dose: 8 unit Documented By: LIZETH Lisinopril (Lisinopril 5 Mg Tablet) 5 mg PO DAILY [facility]; Protocol Last Admin: 01/12/25 08:43 Dose: 5 mg Documented By: TRE Loratadine (Loratadine 10 Mg Tablet) 10 mg PO DAILY [facility] Last Admin: 01/12/25 08:44 Dose: 10 mg Documented By: TRE Magnesium Hydroxide (Milk Of Magnesia 30 Ml Oral.Susp) 30 ml PO DAILY PRN PRN Reason: Constipation Melatonin (Melatonin 3 Mg Tablet) 6 mg PO BEDTIME PRN PRN Reason: Insomnia Ondansetron HCl (Ondansetron Hcl 4 Mg/2 Ml Vial) 4 mg IVPUSH Q8H PRN PRN Reason: Nausea and Vomiting Last Admin: 01/11/25 16:58 Dose: 4 mg Documented By: CHRISTIN Oxycodone HCl (Oxycodone Hcl Immed Release 5 Mg Tablet) 5 mg PO Q6H PRN PRN Reason: Pain, Severe (Pain Scale 7-10) Prednisone (Prednisone 20 Mg Tablet) 40 mg PO DAILY [facility] Stop: 01/15/25 09:01 Last Admin: 01/12/25 08:44 Dose: 40 mg Documented By: TRE Sodium Chloride (0.9 % Sodium Chloride Flush 3 Ml Syringe) [facility] Last Admin: 01/12/25 20:09 Dose: 3 ml Documented By: LIZETH Tramadol HCl (Tramadol Hcl 50 Mg Tablet) 50 mg PO Q6H PRN PRN Reason: Pain, Moderate(Pain Scale 4-6) Last Admin: 01/11/25 08:22 Dose: 50 mg Documented By: MIKY Labs 01/13/25 06:12 01/13/25 06:12 Labs: Laboratory Results - last 24 hr 01/12/25 01/12/25 01/12/25 11:08 16:46 20:09 MCV MCH MCHC RDW Plt Count MPV Immature Gran % (Auto) Neut % (Auto) Lymph % (Auto) [place] % (Auto) Eos % (Auto) Baso % (Auto) Lymph # (Auto) [place] # (Auto) Eos # (Auto) Baso # (Auto) Abs Immat Gran (auto) Absolute Neuts (auto) Absolute Nucleated RBC Nucleated RBC % (auto) Anion Gap Estim Creat Clear Calc Estimated GFR POC Glucose 287 H 293 H 337 H Random Glucose Calcium 01/13/25 01/13/25 06:12 07:48 MCV 85.8 MCH 25.6 L MCHC 29.9 L RDW 15.0 Plt Count 269 MPV 9.7 Immature Gran % (Auto) 0.4 Neut % (Auto) 48.1 Lymph % (Auto) 41.3 H [place] % (Auto) 8.1 Eos % (Auto) 1.5 Baso % (Auto) 0.6 Lymph # (Auto) 2.2 [place] # (Auto) 0.4 Eos # (Auto) 0.1 Baso # (Auto) 0.0 Abs Immat Gran (auto) 0.02 Absolute Neuts (auto) 2.6 Absolute Nucleated RBC 0.000 Nucleated RBC % (auto) 0.0 Anion Gap 13 Estim Creat Clear Calc 137.3 Estimated GFR > 60 POC Glucose 152 H Random Glucose 177 H Calcium 8.8 Microbiology Microbiology Results: Microbiology 01/10/25 18:53 Blood Culture - Preliminary Blood - Venous No growth after 48 hours. 01/10/25 18:27 Blood Culture - Preliminary Blood - Venous No growth after 48 hours. 01/10/25 18:28 Urine Culture - Final Urine Catheterized - Juarez Catheter Assessment and Plan (1) Urinary tract infection: Status: Acute (2) Acute hypoxic respiratory failure: Status: Acute Plan 69-year-old Hungarian-speaking male with a past medical history significant for paraplegia, insulin-dependent diabetes, history of PE (1997), hypertension, who presented to the ED due to hypoxia saturating at 88% on room air. Acute hypoxic respiratory failure due acute viral bronchitis RPP +for entero/rhinovirus CXR, CTA negative wean oxygen as needed BNP negative, echo> EF of 69%, no obvious valvular abnormalities, mild pulmonary hypertension Mucinex for dry cough, try one albuterol updraft to help with phlegm probable mild asthma exacerbation due to above po prednisone prn breathing treatments Urinary tract infection chronic Juarez catheter cx neg continue IV ceftriaxone Hydropic gallbladder on CT Abdominal ultrasound showing distended gallbladder without evidence of coli lithiasis Chronic decubitus ulcer no evidence of active infection no leukocytosis wound care consult intermittent low bp readings appears chronic no sepsis Insulin-dependent diabetes SSI, POCs, ADA diet hold metformin continue Lantus History of PE CTA negative for PE, bedside Doppler ultrasound bilateral lower extremities negative continue Eliquis HTN continue lisinopril Paraplegia continue gabapentin, baclofen Full code VTE prophylaxis: Eliquis Quality Stroke Does the patient have a stroke diagnosis?: No VTE Prior VTE?: Yes VTE Risk Level:: Medical - moderate - high VTE Device Contraindication: Treatment Not Indicated VTE Drug Contraindication: N/A - Med Ordered
[2025-01-13] MEDS: Albuterol Sulfate (0.083%) 2.5 MG/3 ML VIAL.NEB INHALE (08:33)
[2025-01-13 08:36] VITALS: PULSE 93; RESP 18; O2SAT 97
[2025-01-13] MEDS: Ferrous Sulfate 324 MG TABLET.DR PO ×2 (08:38→20:32)
[2025-01-13] MEDS: Aspirin Enteric Coated 81 MG TABLET.DR PO (08:38)
[2025-01-13] MEDS: guaiFENesin LA 600 MG TAB.ER.12H PO ×2 (08:39→20:32)
[2025-01-13] MEDS: 0.9 % Sodium Chloride Flush 3 ML SYRINGE IVFLUSH ×3 (08:40→20:32)
[2025-01-13 09:08] VITALS: O2SAT 95
[2025-01-13 11:35] LABS: Glucose, Whole Blood 172 mg/dL (60-115)
[2025-01-13 16:00] VITALS: BP 130/69; PULSE 83; RESP 18; TEMP 37.1; O2SAT 94
[2025-01-13 16:42] LABS: Glucose, Whole Blood 363 mg/dL (60-115)
[2025-01-13 20:00] VITALS: BP 122/60; PULSE 68; RESP 18; TEMP 36.4; O2SAT 97
[2025-01-13 20:27] LABS: Glucose, Whole Blood 328 mg/dL (60-115)
[2025-01-13] MEDS: Insulin Glargine,Hum.rec.anlog 100 UNIT/ML 10 ML VIAL 8 UNIT SUBCUT (20:32)
[2025-01-14 03:55] VITALS: BP 113/57; PULSE 73; RESP 18; TEMP 36.2; O2SAT 98
[2025-01-14 07:21] LABS: Glucose, Whole Blood 182 mg/dL (60-115)
[2025-01-14 08:00] VITALS: BP 119/70; PULSE 74; RESP 18; TEMP 36.1; O2SAT 95
[2025-01-14] MEDS: Ferrous Sulfate 324 MG TABLET.DR PO ×2 (08:12→21:02)
[2025-01-14] MEDS: Aspirin Enteric Coated 81 MG TABLET.DR PO (08:12)
[2025-01-14] MEDS: guaiFENesin LA 600 MG TAB.ER.12H PO ×2 (08:13→21:02)
[2025-01-14] MEDS: 0.9 % Sodium Chloride Flush 3 ML SYRINGE IVFLUSH ×3 (08:16→21:06)
--- NOTE | 2025-01-14 08:27 | HO.PM.IMPN ---
Subjective Subjective Date of Service: 01/14/25 Interval History: seen and examined this morning follow up for respiratory failure, possible UTI no sob, dry cough no h/o copd, lifelong non-smoker; had asthma until he turned 30 and then it disappeared Review of Systems Review of Systems: Yes all other systems are reviewed and are negative Cardiovascular Cardiovascular: Denies chest pain and Reports dyspnea Respiratory Respiratory: Reports cough and Reports dyspnea Physical Exam Exam: Exam: Appearing in no acute distress lung sounds are clear to auscultation heart regular rate rhythm, clear S1, S2 positive bowel sounds, abdomen is soft, nontender neuro patient is alert x3, no focal deficits Vital Signs: Vital Signs: Last Vital Signs Temp 97.0 F 01/14/25 08:00 Pulse 74 01/14/25 08:00 Resp 18 01/14/25 08:00 BP 119/70 01/14/25 08:00 Pulse Ox 95 01/14/25 08:00 O2 Del Method Room Air 01/14/25 08:00 O2 Flow Rate 1 01/13/25 07:15 BMI result Body Mass Index 26.9 Objective Data Active Medications Acetaminophen (Acetaminophen 325 Mg Tablet) 975 mg PO Q6H PRN PRN Reason: Pain, Mild 1-3,fever,headache Last Admin: 01/13/25 15:18 Dose: 975 mg Documented By: LEFEBNATHEN Albuterol/Ipratropium (Albuterol/Iprat 2.5/0.5mg 3 Ml Ampul.Neb) 3 ml INHALE Q4H PRN PRN Reason: wheezing, shortness of breath Apixaban (Apixaban 5 Mg Tablet) 5 mg PO BID [facility] Last Admin: 01/14/25 08:13 Dose: 5 mg Documented By: LARRY Aspirin (Aspirin Enteric Coated 81 Mg Tablet.) 81 mg PO DAILY [facility] Last Admin: 01/14/25 08:12 Dose: 81 mg Documented By: LARRY Baclofen (Baclofen 20 Mg Tablet) 40 mg PO TID [facility] Last Admin: 01/14/25 08:12 Dose: 40 mg Documented By: LARRY Calcium Carbonate (Calcium Carbonate 750 Mg Tab.Chew) 750 mg PO Q4H PRN PRN Reason: Heartburn Ceftriaxone Sodium (Ceftriaxone Sodium 1 Gm Vial) 1 gm IVPUSH Q24H [facility] Last Admin: 01/13/25 22:54 Dose: 1 gm Documented By: GABBY Cyanocobalamin (Cyanocobalamin (Vitamin B-12) 1,000 Mcg Tablet) 1,000 mcg PO DAILY [facility] Last Admin: 01/14/25 08:12 Dose: 1,000 mcg Documented By: LARRY Dextrose (Dextrose 50 % 25 Gm/50 Ml Syringe) 25 gm IVPUSH Q15M PRN; Protocol PRN Reason: per Hypoglycemia Standing Ord. Ferrous Sulfate (Ferrous Sulfate 324 Mg Tablet.) 324 mg PO BID [facility] Last Admin: 01/14/25 08:12 Dose: 324 mg Documented By: LARRY Gabapentin (Gabapentin 400 Mg Capsule) 400 mg PO DAILY [facility] Last Admin: 01/14/25 08:13 Dose: 400 mg Documented By: LARRY Gabapentin (Gabapentin 400 Mg Capsule) 800 mg PO BEDTIME [facility] Last Admin: 01/13/25 20:32 Dose: 800 mg Documented By: GABBY Glucose (Glucose Gel 15 Gm Gel..Gram.) 15 gm PO Q15M PRN; Protocol PRN Reason: per Hypoglycemia Standing Ord. Guaifenesin (Guaifenesin La 600 Mg Tab.Er.12h) 600 mg PO BID [facility] Last Admin: 01/14/25 08:13 Dose: 600 mg Documented By: LARRY Insulin Glargine (Insulin Glargine,Hum.Rec.Anlog 100 Unit/Ml 10 Ml Vial) 8 unit SUBCUT BEDTIME [facility] Last Admin: 01/13/25 20:32 Dose: 8 unit Documented By: GABBY Insulin Human Lispro (Insulin Lispro 100 Unit/Ml 3 Ml Vial) 0 unit SUBCUT QIDACHS [facility]; Protocol Last Admin: 01/14/25 08:17 Dose: 2 unit Documented By: LARRY Lisinopril (Lisinopril 5 Mg Tablet) 5 mg PO DAILY [facility]; Protocol Last Admin: 01/14/25 08:12 Dose: 5 mg Documented By: LARRY Loratadine (Loratadine 10 Mg Tablet) 10 mg PO DAILY [facility] Last Admin: 01/14/25 08:12 Dose: 10 mg Documented By: LARRY Magnesium Hydroxide (Milk Of Magnesia 30 Ml Oral.Susp) 30 ml PO DAILY PRN PRN Reason: Constipation Melatonin (Melatonin 3 Mg Tablet) 6 mg PO BEDTIME PRN PRN Reason: Insomnia Ondansetron HCl (Ondansetron Hcl 4 Mg/2 Ml Vial) 4 mg IVPUSH Q8H PRN PRN Reason: Nausea and Vomiting Last Admin: 01/11/25 16:58 Dose: 4 mg Documented By: CHRISTIN Oxycodone HCl (Oxycodone Hcl Immed Release 5 Mg Tablet) 5 mg PO Q6H PRN PRN Reason: Pain, Severe (Pain Scale 7-10) Prednisone (Prednisone 20 Mg Tablet) 40 mg PO DAILY [facility] Stop: 01/15/25 09:01 Last Admin: 01/14/25 08:12 Dose: 40 mg Documented By: LARRY Sodium Chloride (0.9 % Sodium Chloride Flush 3 Ml Syringe) [facility] Last Admin: 01/14/25 08:16 Dose: 3 ml Documented By: LARRY Tramadol HCl (Tramadol Hcl 50 Mg Tablet) 50 mg PO Q6H PRN PRN Reason: Pain, Moderate(Pain Scale 4-6) Last Admin: 01/11/25 08:22 Dose: 50 mg Documented By: MIKY Labs 01/13/25 06:12 01/13/25 06:12 Labs: Laboratory Results - last 24 hr 01/13/25 01/13/25 01/13/25 11:27 16:37 20:23 POC Glucose 172 H 363 H* 328 H 01/14/25 07:11 POC Glucose 182 H Assessment and Plan (1) Urinary tract infection: Status: Acute (2) Acute hypoxic respiratory failure: Status: Acute Plan 69-year-old Kyrgyz-speaking male with a past medical history significant for paraplegia, insulin-dependent diabetes, history of PE (1997), hypertension, who presented to the ED due to hypoxia saturating at 88% on room air. Acute hypoxic respiratory failure due acute viral bronchitis RPP +for entero/rhinovirus CXR, CTA negative wean oxygen BNP negative, echo> EF of 69%, no obvious valvular abnormalities, mild pulmonary hypertension Mucinex for dry cough, Updrafts have also been helping probable mild asthma exacerbation due to above po prednisone prn breathing treatments Urinary tract infection chronic Juarez catheter cx neg continue IV ceftriaxone Hydropic gallbladder on CT Abdominal ultrasound showing distended gallbladder without evidence of coli lithiasis Chronic decubitus ulcer no evidence of active infection no leukocytosis wound care consult intermittent low bp readings appears chronic no sepsis Insulin-dependent diabetes SSI, POCs, ADA diet hold metformin continue Lantus History of PE CTA negative for PE, bedside Doppler ultrasound bilateral lower extremities negative continue Eliquis HTN continue lisinopril Paraplegia continue gabapentin, baclofen Full code VTE prophylaxis: Eliquis Quality Stroke Does the patient have a stroke diagnosis?: No VTE Prior VTE?: Yes VTE Risk Level:: Medical - moderate - high VTE Device Contraindication: Treatment Not Indicated VTE Drug Contraindication: N/A - Med Ordered
[2025-01-14] MEDS: Albuterol Sulfate (0.083%) 2.5 MG/3 ML VIAL.NEB INHALE (08:54)
[2025-01-14 08:55] VITALS: PULSE 74; RESP 18; O2SAT 92
--- NOTE | 2025-01-14 09:43 | MHC.CLN ---
F/U DIET=DIABETIC 2000 KCALS-APPROPRIATE. PO INTAKE USUALLY 100%. SKIN WITH MULTIPLE WOUNDS. ENSURE MAX PROTEIN BID TO PROMOTE WOUND HEALING. SUPPLEMENT PROVIDES 300 KCALS, 60 G PROTEIN. FOLLOW FOR PO INTAKE AND SKIN INTEGRITY.
[2025-01-14 11:23] LABS: Glucose, Whole Blood 252 mg/dL (60-115)
[2025-01-14 15:37] VITALS: BP 109/59; PULSE 76; RESP 18; TEMP 36.3; O2SAT 93
[2025-01-14 16:16] LABS: Glucose, Whole Blood 364 mg/dL (60-115)
[2025-01-14 20:00] VITALS: BP 119/62; PULSE 81; RESP 18; TEMP 36.6; O2SAT 97
[2025-01-14 20:24] LABS: Glucose, Whole Blood 305 mg/dL (60-115)
[2025-01-14] MEDS: Insulin Glargine,Hum.rec.anlog 100 UNIT/ML 10 ML VIAL 8 UNIT SUBCUT (21:04)
[2025-01-15 04:00] VITALS: BP 100/58; PULSE 68; RESP 16; TEMP 36.8; O2SAT 99
[2025-01-15 07:18] VITALS: BP 120/60; PULSE 80; RESP 16; TEMP 36.2; O2SAT 95
[2025-01-15 07:23] LABS: Glucose, Whole Blood 146 mg/dL (60-115)
--- NOTE | 2025-01-15 07:25 | PM.DS ---
DS: Providers Provider Date of Service: 01/15/25 Date of admission: 01/10/25 20:19 Date of discharge: 01/15/25 Primary care physician: Unknown Physician Consults: 01/10/25 22:23 Consult to Wound Care Routine Reason for consultation: Chronic decubitus ulcer 01/15/25 01:59 Consult to Wound Care Routine Reason for consultation: PI to B/L hips/skin tear DS: Diagnosis Discharge Diagnosis (1) Urinary tract infection: Status: Acute (2) Acute hypoxic respiratory failure: Status: Acute DS: Summary Hospital Course Hospital Course: History and physical as per admitting provider. Patient is a 69-year-old Solomon Islander-speaking male with a past medical history significant for paraplegia, insulin-dependent diabetes, history of PE (1997), hypertension, who presented to the ED due to hypoxia saturating at 88% on room air. The patient initially went to urgent care earlier today due to a mild cough with phlegm, chills and subjective fevers for the past 2 days. When he was found to be hypoxic it was recommended that he come to the emergency department therefore EMS was called. The patient received a DuoNeb as well as 2 L of oxygen via NC with improvement. He reports some mild shortness of breath and rhinorrhea. He denies any recent sick contacts. He has been seeing wound care for his chronic decubitus ulcer, last seen yesterday, no sign of infection, no increased pain or purulence. He also has a chronic Juarez therefore does not have any urinary symptoms including frequency, urgency or dysuria. He denies any change in urine output or change in color or odor of urine. 69-year-old man treated for acute hypoxic respiratory failure secondary to bronchitis and entero/rhino virus and probable mild asthma exacerbation. Chest x-ray and chest CTA negative for PE or consolidation. Patient's oxygen has been weaned. BNP was negative and echocardiogram showed normal EF with no valvular abnormalities. Patient was treated with updrafts and Mucinex for dry cough. P.o. prednisone for 5 days. At this point patient is stable for discharge. He requested to be discharged to [facility] [place] to waste picker his electric wheelchair. Patient has chronic Juarez catheter and initially was thought that he may have had urinary tract infection but culture remained negative, he was treated with Rocephin for 5 days. Chronic decubitus ulcer. No evidence of active infection, continue care as per previous Intermittent low blood pressure readings. Appears to be chronic. No sepsis Diabetes mellitus type 2. Treated with sliding scale and ADA diet during admission. You may continue his metformin and Lantus at home. History of pulmonary embolus. CTA negative for PE during this hospitalization. Bedside Doppler ultrasound negative for lower extremity DVTs. Continue Eliquis Hypertension. Continue lisinopril Paraplegia. Continue gabapentin and baclofen. Time Attestation Discharge Coordination Time (in mins): 45 Quality: Safe Use of Opioids Does Pt have an Active Cancer Diagnosis on the Problem List?: No Quality: Stroke Does the patient have a stroke diagnosis?: No Physical Exam Exam: Exam: Appearing in no acute distress head is normocephalic atraumatic eyes pupils are PERRLA sclera is anicteric mouth throat mucous membranes are intact and moist neck is supple no lymphadenopathy, no JVD noted lung sounds are clear to auscultation heart regular rate rhythm, clear S1, S2 positive bowel sounds, abdomen is soft, nontender neuro patient is alert x3, paraplegia Vital Signs: Vital Signs: Last Vital Signs Temp 97.2 F 01/15/25 07:18 Pulse 80 01/15/25 07:18 Resp 16 01/15/25 07:18 BP 120/60 01/15/25 07:18 Pulse Ox 95 01/15/25 07:18 O2 Del Method Room Air 01/15/25 07:18 O2 Flow Rate 1 01/13/25 07:15 BMI result Body Mass Index 26.9 DS: Data Data Completed and Pending Completed studies during hospitalization [Text1]: Procedures Excision of Duodenum, Via Natural or Artificial Opening Endoscopic, Diagnostic (04/08/21) Excision of Esophagus, Via Natural or Artificial Opening Endoscopic, Diagnostic (04/08/21) Excision of Left Upper Leg Subcutaneous Tissue and Fascia, Open Approach (03/02/21) Excision of Stomach, Pylorus, Via Natural or Artificial Opening Endoscopic, Diagnostic (04/08/21) Insertion of Infusion Device into Superior Vena Cava, Percutaneous Approach (05/28/21) Transfusion of Nonautologous Red Blood Cells into Peripheral Vein, Percutaneous Approach (05/28/21) Labs on day of discharge: Laboratory Results - last 24 hr 01/14/25 01/14/25 01/14/25 11:11 16:09 20:15 POC Glucose 252 H 364 H* 305 H 01/15/25 07:17 POC Glucose 146 H Preliminary micro results at discharge 01/10/25 18:53 Blood Culture - Preliminary Blood - Venous No growth after 48 hours. 01/10/25 18:27 Blood Culture - Preliminary Blood - Venous No growth after 48 hours. Discharge Plan Discharge Anticipated Discharge Date/Time: 01/15/25 07:22 Patient Disposition: Home Health Service Discharge Diagnosis: Acute hypoxic respiratory failure Asthma exacerbation UTI Discharge Medications: New guaifenesin [Mucinex] 600 mg Tablet Extended Release 12hr 600 mg PO BID Qty: 6 0RF Continued aspirin 81 mg tablet,delayed release (DR/EC) 1 tab PO DAILY ibuprofen 800 mg Tablet 800 mg PO Q6H PRN (Reason: Pain) ferrous sulfate [Iron (ferrous sulfate)] 325 mg (65 mg iron) Tablet 325 mg PO BID Qty: 60 3RF Eliquis 5 mg tablet 1 tab PO BID baclofen 20 mg tablet 40 mg PO TID cyanocobalamin (vitamin B-12) [Vitamin B-12] 1,000 mcg Tablet 1,000 mcg PO DAILY Qty: 90 1RF loratadine 10 mg tablet 10 mg PO DAILY insulin glargine-yfgn [Semglee(insulin glarg-yfgn)Pen] 100 unit/mL (3 mL) insulin pen 12 - 20 unit subcut BEDTIME gabapentin 800 mg tablet 400 mg PO DAILY lisinopril 5 mg tablet 5 mg PO DAILY gabapentin 800 mg tablet 800 mg PO BEDTIME metformin 1,000 mg tablet 1,000 mg PO BID (DME) lancets [TRUEplus Lancets] 33 gauge misc See Rx Instructions .ROUTE TID Qty: 100 Rx Instructions: As directed (DME) FreeStyle Lite Strips Strip See Rx Instructions .ROUTE TID Qty: 10 Rx Instructions: As directed (DME) pen needle, diabetic [UltiCare Pen Needle] 31 gauge x 1/4 needle See Rx Instructions .ROUTE .MEDSUPPLY Qty: 50 Rx Instructions: As directed acetaminophen 500 mg tablet 500 mg PO Q8H PRN (Reason: Pain) Discharge Orders: Discharge Order (Routine); Ordered 01/15/25 Ordered By: Li Mleton Diet: Advance to usual diet Activity on Discharge: As tolerated Stand Alone Forms: Patient Portal Discharge page Print Language: Solomon Islander Care Plan Goals: May take Mucinex for dry cough Health Concerns: Acute hypoxic respiratory failure Asthma exacerbation UTI Plan of Treatment: Follow up with primary care provider as needed Take all medications as prescribed Assessment: See discharge summary Patient Instructions: Hypoxia (ED)
[2025-01-15] MEDS: Aspirin Enteric Coated 81 MG TABLET.DR PO (08:57)
[2025-01-15] MEDS: guaiFENesin LA 600 MG TAB.ER.12H PO (08:57)
[2025-01-15] MEDS: Ferrous Sulfate 324 MG TABLET.DR PO (08:57)
--- NOTE | 2025-01-15 09:06 | MHC.CM.PN ---
PT CLEARED TO DC HOME TODAY WITH RESUMPTION OF HIS [facility] SERVICES [facility] NOTIFIED [facility]IA [facility] BLS TRANSPORT BOOKED FOR 1030 WITH [facility]
[2025-01-15 10:07] VITALS: BP 126/59; PULSE 88; RESP 18; TEMP 36.2; O2SAT 92
--- NOTE | 2025-01-16 15:11 | P.CDIM_ITS ---
PROVIDER RESPONSE TEXT: To clarify, the appropriate diagnosis supported by the clinical indicators: Mild intermittent QUERY TEXT: PHYSICIAN'S DOCUMENTATION REQUEST Date of Query: 01/15/2025 07:30 AM EDT Patient Name: Israel Monroy Admit Date: 01/11/2025 Dear Li Melton COMPOUND MIXER, A review of the medical record indicates additional documentation may be needed. Please review below and update the documentation accordingly. Clinical indicators: Progress note 01/14/25 - Probable mild asthma exacerbation PO Prednisone prn breathing treatments. Based on the above, please clarify in the Progress Notes further specificity regarding the type of the asthma: Mild intermittent Mild persistent Moderate persistent Severe persistent Exercise induced Other (explain) Clinically unable to determine (explain) Thank you, Nancy Garcia, CCS, CDIS Use of terms such as suspected, likely, concern for, or probable (associated with a specific diagnosis that is being evaluated, monitored, or treated as if it exists) are acceptable and can be coded in the inpatient setting, when documented at the time of discharge. Please use your independent medical judgment in providing your response. THIS QUERY IS PART OF THE PERMANENT MEDICAL RECORD
--- NOTE | 2025-01-16 15:11 | P.CDIM_ITS ---
PROVIDER RESPONSE TEXT: To clarify, the appropriate diagnosis supported by the clinical indicators: Pressure (decubitus) ulcer bilateral hips: 2 QUERY TEXT: PHYSICIAN'S DOCUMENTATION REQUEST Date of Query: 01/15/2025 07:32 AM EDT Patient Name: Israel Monroy Admit Date: 01/11/2025 Dear Li Melton NUTRITION AIDE, A review of the medical record indicates additional documentation may be needed. Please review below and update the documentation accordingly. Clinical Indicators: Wound care nursing notes dated 01/14/25 - Pressure injury left/right hip. Dry and intact Foam dressing. Progress notes document Chronic decubitus ulcer. No evidence of active infection, continue care as per previous. Based on the above, could you please provide further information regarding the ulcer/wound/injury: Pressure (decubitus) ulcer bilateral hips Please include the stage of the documented ulcer, if known Other specified Please specify the location and laterality of the ulcer/wound Other (explain) Clinically unable to determine (explain) Thank you, Nancy Garcia, CCS, CDIS Use of terms such as suspected, likely, concern for, or probable (associated with a specific diagnosis that is being evaluated, monitored, or treated as if it exists) are acceptable and can be coded in the inpatient setting, when documented at the time of discharge. Please use your independent medical judgment in providing your response. THIS QUERY IS PART OF THE PERMANENT MEDICAL RECORD
--- NOTE | 2025-01-23 06:49 | PC.NURSE ---
Delayed entry: on 01/11/25, patient was administered PRN Tramadol despite pain level being a 7/10 per patient request.
== END 2025-01-15 10:37 | disposition home health service (06) | DRG 190 ==
LOC: HO.ED 20:13 → HO.EDOVER 20:24 → HO.S3 01-11 07:58
PROVIDERS: Hospitalist; Physician Assistant Medical; Admitting Provider Physician Assistant; Emergency Provider Emergency Medicine; PCP Internal Medicine; Visit Provider Nurse Practitioner Acute Care
DX: J44.0 Chronic obstructive pulmonary disease with (acute) lower respiratory infection (principal); J96.01 Acute respiratory failure with hypoxia; J45.21 Mild intermittent asthma with (acute) exacerbation; K82.1 Hydrops of gallbladder; G82.20 Paraplegia, unspecified; J20.8 Acute bronchitis due to other specified organisms; E11.9 Type 2 diabetes mellitus without complications; I27.20 Pulmonary hypertension, unspecified; B97.89 Other viral agents as the cause of diseases classified elsewhere; L89.222 Pressure ulcer of left hip, stage 2; L89.212 Pressure ulcer of right hip, stage 2; Z20.822 Contact with and (suspected) exposure to COVID-19; Z96.0 Presence of urogenital implants; Z86.711 Personal history of pulmonary embolism; Z79.4 Long term (current) use of insulin; Z79.01 Long term (current) use of anticoagulants; Z79.82 Long term (current) use of aspirin; Z79.84 Long term (current) use of oral hypoglycemic drugs; Z79.899 Other long term (current) drug therapy
CPT/HCPCS: 36415; 71045; 71275; 76705; 80048; 80076; 81001; 82947; 83605; 83735; 83880; 84145; 84484; 85025; 87040; 87086; 87633; 87637; 93005; 93306; 94640; 99285; J0696; J2405; J2543; J7120; Q9957; Q9967

== ENCOUNTER → 2025-01-10 16:28 | Outpatient (BNV) | payer MEDICARE, MEDICAID, SELFPAY | PROVIDERS: Emergency Provider Emergency Medicine; Visit Provider Radiology Diagnostic Radiology | DX: R09.02 Hypoxemia (principal) | CPT/HCPCS: 71045 ==

== ENCOUNTER → 2025-01-10 16:28 | Outpatient (BNV) | payer MEDICARE, MEDICAID, SELFPAY | PROVIDERS: Admitting Provider Physician Assistant; Emergency Provider Emergency Medicine; Visit Provider Internal Medicine | DX: R06.02 Shortness of breath (principal) | CPT/HCPCS: 93010 ==

== ENCOUNTER 2025-01-10 20:19 | Outpatient (BNV) | payer MEDICARE, MEDICAID, SELFPAY | END 2025-01-11 07:00 | PROVIDERS: Admitting Provider Physician Assistant; Emergency Provider Emergency Medicine; Visit Provider Internal Medicine | DX: I27.20 Pulmonary hypertension, unspecified (principal) | CPT/HCPCS: 93306 ==

== ENCOUNTER 2025-01-10 20:19 | Outpatient (BNV) | payer MEDICARE, MEDICAID, SELFPAY | END 2025-01-11 14:30 | PROVIDERS: Admitting Provider Physician Assistant; Emergency Provider Emergency Medicine; Visit Provider Radiology Diagnostic Radiology | DX: K82.1 Hydrops of gallbladder (principal) | CPT/HCPCS: 76705 ==

== ENCOUNTER → 2025-01-10 20:19 | Outpatient (BNV) | payer MEDICARE, MEDICAID, SELFPAY | PROVIDERS: Admitting Provider Physician Assistant; Emergency Provider Emergency Medicine; Visit Provider Physician Assistant Medical | DX: N39.0 Urinary tract infection, site not specified (principal); J96.01 Acute respiratory failure with hypoxia | CPT/HCPCS: 99223; 99232; 99233; 99239 ==

== ENCOUNTER 2025-04-17 14:55 | Outpatient (REF) | payer MEDICARE, MEDICAID, SELFPAY ==
--- OUTSIDE RECORDS SUMMARY | 2025-03-20 13:15 | XMS_ITS | Encounter Summary ---
[facility] [address] [place] [address] Care Team Providers Care Terminal Makeup Operator Name Role Phone Jose Grayson MD Primary Care Provi gauri Reason for Visit * Reason Comments DM Foot Care * Consultation (Routine) - Closed Specialty Diagnoses / Procedures Referred By Leticia armas Referred To Contact Podiatry / Orthopaedic Surgery Diagnoses Type 2 diabetes mellitus without complications (CMS/[facility] V24, CMS/[facility] V28) Jose Grayson MD [address] [place] [id number] Phone: tel: fax: Irwin Caraballo DPM [address] [address] Phone: tel: fax: Referral ID Status Reason Start Date Expiration Date V isits Requested Visits Authorized [id number] Closed Specialty Services Required 07/23/2024 07/23/2025 1 1 Encounter Details Date Type Department Care Team (Late st Contact Info) Description 03/20/2025 1:15 PM EST Office Visit Orthopedic Surgery - [place] [address] [phone] Irwin Caraballo DPM [address] [phone] Primary osteoarthritis of both feet (Primary Dx); Bilateral foot pain; Dermatophytosis of nail; Pain in toe of right foot; Pain in toe of left foot; Diabetic mononeuropathy simplex (CMS/[facility] V24, CMS/[facility] V28); Metatarsalgia of both feet; Type II diabetes mellitus with peripheral circulatory disorder ([facility] V24, [facility] V28); Corns and callosities; Acquired hammer toe of right foot; Hammer toe of left foot Social History Tobacco Use Types Packs/Day Years Used Date Smoking Tobacco: Never Smokeless Tobacco: Never Alcohol Use Standard Drinks/Week Comments Yes 0 (1 standard drink = 0.6 oz pur e alcohol) Sex and Gender Information Value Date Recorded Sex Assigned at Not on file Legal Sex Male 6:15 PM EST Gender Identity Not on file Sexual Orientation Not on file documented as of this encounter Progress Notes * Joseph Field - 03/20/2025 1:15 PM ESTAddended by: JOSEPH FIELD on: 04/12/2025 04:46 PM Modules accepted: Orders * Irwin Caraballo DPM - 03/20/2025 1:15 PM EST S Patient presents after left foot surgeryCurrently status post left foot fourth and fifth metatarsalresection for chronic infection and ulceration. Date of surgery 01/30/2021. He is doing very well atthis time notes of both his wounds on his right and left foot have healed completely he was last seen over 3 years ago does not that he has the longer painful thickened nails thick skin he would like his foot exam denies getting pain across both of his feet with chronic achy throbbing pain and discomfort states overall he has been doing much better has no new acute wound formation since he was last seen over 3 years ago does continue with chronic pain he states he is midfoot both feet has been more throbbing achy states has been bothering him he is minimally active though he does have significant baseline neuropathies of both lower extremities patient does report he is getting some worsening contracture of his toes pain throbbing discomfort in the balls of both feet numbing shooting pain Last PCP visit: Dr. Aneta JONES 03/11/2025 ROS: GENERAL: Pt denies nausea, fever, vomiting, chills, or shortness of breath. Pt in NAD. CARDIOLOGY: pt denies chest pain, palpitations LUNGS: pt denies shortness of breath MUSCULOSKELETAL: See HPI, otherwise no joint pain or swelling, back pain, or muscle pain. SKIN: see HPI, otherwise no lesions, rash or itching NEURO: No persistent headache, weakness or numbness The remainder of the review of systems is noncontributory PAST MEDICAL HISTORY: Patient Active Problem List Diagnosis Code Type 2 diabetes mellitus (HCC) E11.9 Chronic osteomyelitis involving ankle and foot, left ([facility]) M86.672 SOCIAL HISTORY: Social History Tobacco Use Smoking status: Never Smoker Smokeless tobacco: Never Used Substance Use Topics Alcohol use: Yes Comment: rarely - holiday (per faxed over paperwork) History Last Reviewed by Tatiana Scott on 03/24/2021 at 12:58 PM Sections Reviewed Tobacco, Family, Medical, Surgical ACTIVE MEDICATIONS: Current Outpatient Medications Medication Sig Dispense Refill oxycodone (ROXICODONE) 5 MG immediate release tablet Take one tablet every 6 hours as needed for pain 20 tablet 0 acetaminophen (Tylenol) 325 MG tablet Take 2 Tablets by mouth every 6 hours as needed for Pain (mild to moderate pain) for up to 10 days. 80 tablet 0 levofloxacin (LEVAQUIN) 250 MG tablet Take 250 mg by mouth daily. Apixaban 5 MG Tab Take by mouth. aspirin 81 MG EC tablet Take 81 mg by mouth daily. Baclofen 40 MG/20ML Solution by Intrathecal route. Cholecalciferol 10 MCG/ML Liquid Take by mouth. gabapentin (NEURONTIN) 800 MG tablet Take 800 mg by mouth 3 times daily. hydrocortisone 2.5 % ointment Apply topically 2 times daily. Insulin Glargine (Lantus SoloStar) 100 UNIT/ML Solution Pen-injector Inject into the skin. latanoprost (XALATAN) 0.005 % ophthalmic solution 1 Drop at bedtime. lisinopril (PRINIVIL,ZESTRIL) 5 MG tablet Take 5 mg by mouth daily. metformin (GLUCOPHAGE) 1000 MG tablet Take 1,000 mg by mouth 2 times daily (with meals). Omadacycline Tosylate 150 MG Tab Take by mouth. No current facility-administered medications for this visit. ALLERGIES: Levofloxacin, Seafood, and Shellfish allergy PHYSICAL EXAM: Height 6' 2 (1.88 m), weight 210 lb (95.3 kg). Estimated body mass index is 26.96 kg/m?? as calculated from the following: Height as of this encounter: 6' 2 (1.88 m). Weight as of this encounter: 210 lb (95.3 kg). PODIATRIC EXAMINATION: GENERAL: Patient appears well nourished, with NAD. VASCULAR: Dorsalis pedis pulses are 1/4 bilaterally and Posterior tibial pulses are 1/4 bilaterally. Capillary filling time within normal limits the digits. No pallor on elevation or rubor on dependency. Absent hair growth. No varicosities. Denies rest pain or claudication pain. NEUROLOGICAL: Sharp/dull sensation absent, protective sensation absent 0/10 with 5.07 semmes duong bilaterally, vibratory sensation with tuning fork intact to the tibial tuberosity. ORTHOPEDIC: Amputated right fifth digit. DERMATOLOGICAL:. Results hyperkeratoses bilaterally Toenails: Left Toenail(s) 1-5: Crumbling upon debridement, subungual debris, discoloration, dystrophy, elongation, mycotic appearance, onychomycosis, pain and thickening. Right Toenail(s) 1-4: Crumbling upon debridement, subungual debris, discoloration, dystrophy, elongation, mycotic appearance, onychomycosis, pain and thickening. BIOMECHANICS: STJ ROM wnl, MTJ ROM wnl, 1st MPJ ROM wnl. Hammertoe contractures 2 through 5 bilateral Patchy symmetric bilateral metatarsalgia 2 through 5 IMAGING: IMPRESSION: 1. Primary osteoarthritis of both feet 2. Bilateral foot pain XR Foot 3+ Views bilat 3. Dermatophytosis of nail 4. Pain in toe of right foot 5. Pain in toe of left foot 6. Diabetic mononeuropathy simplex (CMS/HCC V24, CMS/HCC V28) 7. Metatarsalgia of both feet 8. Type II diabetes mellitus with peripheral circulatory disorder (CMS/HCC V24, CMS/HCC V28) 9. Corns and callosities 10. Acquired hammer toe of right foot 11. Hammer toe of left foot PLAN: No new wound formation is noted Patient was last seen over 3 years ago and is a new patient to our office Reviewed fat pad atrophy with patient and metatarsalgia both feet causing contact nerve irritation of plantar digital nerves discussed that likely with offloading padding should resolve this condition I would encourage him to continue protective supportive shoe gear he is in wheelchair and to use shoes that give him protection and cushion and support progressive hammertoe contractures of digits due to sarcopenia Discussed with patient regarding proper glucose control, exercise, and diet. Explained to patient proper shoe gear, and importance of daily foot checks. I reviewed neuropathy and why it occurs in diabetics. I educated the patient on proper blood sugar control and the importance of an HgBA1c of less than 7.0%. I reviewed the signs and symptoms of neuropathy with the patient Continue with offloading boots accommodative shoe gear for reoccurring callus formation preulcerative lesions in the balls of both feet inner aspects of both first metatarsals Pt to return for another evaluation in 3 months. Debridement of mycotic toenails 6-10: Verbal informed consent was obtained from the patient. Greater than 6 nails were aseptically debrided in thickness and length with nail nippers Irwin Caraballo DPM documented in this encounter Plan of Treatment Upcoming Encounters Date Type Department Care Team (Late st Contact Info) Description 09/18/2025 1:30 PM EDT Office Visit Orthopedic Surgery - [place] [id number] [phone] Irwin Caraballo DPM [address] [phone] documented as of this encounter Visit Diagnoses Diagnosis Primary osteoarthritis of both feet- Primary Bilateral foot pain Dermatophytosis of nail Pain in toe of right foot Pain in soft tissues of limb Pain in toe of left foot Pain in soft tissues of limb Diabetic mononeuropathy simplex (CMS/HCC V24, CMS/HCC V28) Type II or unspecified type diabetes mellitus with neurological manifestations, not stated as uncontrolled Metatarsalgia of both feet Type II diabetes mellitus with peripheral circulatory disorder (CMS/HCC V24, CMS/HCC V28) Type II or unspecified type diabetes mellitus with peripheral circulatory disorders, not stated as uncontrolled Corns and callosities Acquired hammer toe of right foot Hammer toe of left foot documented in this encounter Care Teams Terminal Makeup Operator Relationship Specialty Start Date End Date Jose Grayson MD [address] [place] [phone] PCP - General Internal Medicine 04/08/21 documented as of this encounter
--- NOTE | ~2025-04-17 | US_ITS ---
EXAMINATION: US THYROID CLINICAL INFORMATION: Left thyroid nodule identified on a CT chest. COMPARISON: Correlated to CT chest dated January 10, 2025. TECHNIQUE: Linear transducer grayscale and color Doppler examination with attention to the region of the thyroid. FINDINGS: Some images on PACS labeled by the polysomnographic technologist as right cystic nodule. SIZE: Measurements of the thyroid lobes and nodules are given in sagittal, anteroposterior and transverse dimensions respectively. Right Thyroid Lobe: 5.1 x 2.6 x 1.5 cm, volume 10.6 mL. Parenchyma: The gland echotexture is normal. Thyroid vascularity is normal. Left Thyroid Lobe: 4.7 x 2.2 x 2.3 cm, volume 12.3 mL. Parenchyma: The gland echotexture is normal. Thyroid vascularity is normal. Isthmus: 0.4 cm in maximum AP dimension. Estimated total number of nodules greater than or equal to 1 cm: 1. 2Nd Pressman nodules are described as follows: 1. Location: The midportion left lobe. Size: 2.2 x 1.8 x 1.5 cm, . Nodule characteristics: Composition: Mixed cystic and solid (1). Echogenicity: Anechoic (0). Shape: Not taller than wide (0). Margins: Smooth (0). Echogenic Foci: Punctate echogenic foci (3). ACR TI-RADS total points: 4 ACR TI-RADS category: 4 NODES: No lymphadenopathy is seen in the tissue surrounding the thyroid gland. US/US thyroid IMPRESSION: ACR TI RADS category 4, left thyroid nodule. ACR TI-RADS RECOMMENDATION REFERENCE: Ultrasound-guided fine-needle aspiration, followup ultrasound, no further follow up. * TR1 (0 point) and TR2 (2 points): No FNA or follow up. * TR3 (3 points): FNA if more than or equal to 2.5 cm in maximum dimension, followup ultrasound in 1, 3 and 5 years if 1.5 to 2.4 cm in maximum dimension. * TR4 (4-6 points): FNA if more than or equal to 1.5 cm in maximum dimension, followup ultrasound in 1, 2, 3 and 5 years if 1 to 1.4 cm in maximum dimension. * TR5 (more than or equal to 7 points): FNA if more than or equal to 1 cm in maximum dimension, followup ultrasound every year for 5 years if 0.5 to 0.9 cm in maximum dimension. * TR3, TR4 or TR5 nodules that are below the size threshold for followup receive no follow up. Electronically signed by: Mark Wells MD 04/17/2025 04:04 PM [facility]
--- OUTSIDE RECORDS SUMMARY | 2025-04-17 17:49 | XMS_ITS | Encounter Summary ---
Author Organization [employer] Address [address] [place] [address] [address] [place] [address] Care Team Providers Care Real Estate Photographer Name Role Phone Jose Baker MD Primary Care Provide r August Reason for Visit * Reason Onset Date Comments Paperwork/Forms 03/31/2023 Encounter Details Date Type Department Care Team ([facility] Contact Info) Description 03/31/2023 Telephone [facility] MEDICINE [address] [place], [place] [phone] Jose Baker MD [address] [place], [place] [phone] Paperwork/Forms Social History Tobacco Use Types Packs/Day [...] Care Team (Late st Contact Info) Description 05/27/2025 2:30 PM EST Office Visit [facility] ADULT DENTAL [address] [place] [address] Dl Vásquez DDS [address] [place] [address] 06/04/2025 1:30 PM EST Office Visit [facility] MEDICINE [address] [place] [address] Jose Baker MD [address] [place] [address] documented as of this encounter Visit Diagnoses Not on filedocumented in this encounter Additional Health Concerns Assessment Noted Time PHQ-9 Depression Total Score: 0 02/11/20 1:23 PM EDT documented as of this encounter Care Teams Real Estate Photographer Relationship Specialty Start Date End Date Jose Baker MD [address] [place] [address] PCP - General Internal Medicine 03/22/19 Smiley Dena [address] [place] [address] [address] [place] [address] Gastroenterology 06/14/24 [place] [facility] 09/10/23 documented as of this encounter
--- OUTSIDE RECORDS SUMMARY | 2025-04-17 17:49 | XMS_ITS | Encounter Summary ---
Author Organization [employer] Address [address] [place] [address] [address] [place] [address] Care Team Providers Care Silver Steward Name Role Phone Jose Baker MD Primary Care Provide r August Reason for Visit * Reason Onset Date Comments Call Back Request 06/14/2024 Encounter Details Date Type Department Care Team ([facility] st Contact Info) Description 06/14/2024 Telephone [facility] MEDICINE [address] [place], [place] [phone] Jose Baker MD [address] [place] [address] Call Back Request Social History Tobacco Use [...] as he will like to speak to ME [phone] documented in this encounter Plan of Treatment Upcoming Encounters Date Type Department Care Team (Late st Contact Info) Description 05/27/2025 2:30 PM EST Office Visit [facility] ADULT DENTAL [address] [place] [address] Dl Vásquez DDS [address] [place] [address] 06/04/2025 1:30 PM EST Office Visit [facility] MED[facility]INE [address] [place] [address] Jose Baker MD [address] [place] [address] documented as of this encounter Visit Diagnoses Not on filedocumented in this encounter Additional Health Concerns Assessment Noted Time PHQ-9 Depression Total Score: 0 11/23/19 9:34 AM EDT documented as of this encounter Care Teams Silver Steward Relationship Specialty Start Date End Date Jose Baker MD [address] [place] [address] PCP - General Internal Medicine 03/22/19 Smiley August [address] [place] [address] Drive [address] [place] [address] Gastroenterology 06/14/24 Jourdan [facility]YE 09/10/23 documented as of this encounter
--- OUTSIDE RECORDS SUMMARY | 2025-04-17 17:49 | XMS_ITS | Encounter Summary ---
Author Organization [employer] Address [address] [place] [address] [address] [place] [address] Care Team Providers Care Active Directory Architect Name Role Phone Jose Baker MD Primary Care Provide r August Unavailable Reason for Visit * Reason Onset Date Comments Med Refill 04/01/2023 Encounter Details Date Type Department Care Team ([facility] st Contact Info) Description 04/01/2023 Telephone [facility] [address] [place], [place] [phone] Jose Baker MD [address], [place] [phone] Med Refill Social History Tobacco Use Types [...] 9:17 AM EST Medication was sent to [facility] on 06/01/22 #60 with 11 refills. * Telephone Encounter - Braulio Melton - 04/01/2023 9:15 AM EST Tc from pt requesting medication refill for metFORMIN (Glucophage) 1000 MG tablet documented in this encounter Plan of Treatment Upcoming Encounters Date Type Department Care Team (Late st Contact Info) Description 05/27/2025 2:30 PM EST Office Visit [facility] [address] [place] [address] Dl Vásquez DDS [address] [place] [address] 06/04/2025 1:30 PM EST Office Visit [facility] [address] [place] [address] Jose Baker MD [address] [place] [address] documented as of this encounter Visit Diagnoses Not on filedocumented in this encounter Additional Health Concerns Assessment Noted Time PHQ-9 Depression Total Score: 0 02/11/20 1:23 PM EDT documented as of this encounter Care Teams Active Directory Architect Relationship Specialty Start Date End Date Jose Baker MD [address] [place] [id number] PCP - General Internal Medicine 03/22/[address] [address] [place] [address] [address] [place] [address] Gastroenterology 06/14/24 [facility] 09/10/23 documented as of this encounter
--- OUTSIDE RECORDS SUMMARY | 2025-04-17 17:49 | XMS_ITS | Clinical Summary ---
Author Organization [employer] Address [address] [place] [address] [address] [place] [address] Care Team Providers Care Public Stenographer Name Role Phone Jose Baker MD Primary Care Provide r August Unavailable Allergies Active Allergy Reactions Criticality Noted Date Comments Levofloxacin 04/15/2017 Other reaction(s): Hives / Skin Rash Shellfish Protein-Containing Drug Products Itching 04/15/2017 Medications apixaban (Eliquis) 5 MG tablet Take 1 tablet by mouth every 12 (twelve) hours. Active baclofen (Lioresal) 20 MG tablet Take 2 tablets by mouth every 12 (twelve) hours. 021 Active cyanocobalamin (Vitamin B-12) 1000 MCG tablet Take 3 tablets by mouth in the morning. Active ferrous sulfate 325 (65 Fe) MG EC tablet Take 1 tablet by mouth every 12 (twelve) hours. Active gabapentin (Neurontin) 800 MG tablet Take 1 tablet by mouth every 12 (twelve) hours. 021 Active TRUEplus Lancets 33G misc TEST BLOOD SUGAR THREE TIMES DAILY 100 each 11 023 Active aspirin (Aspirin Adult Low Strength) 81 MG EC tabletIndicatio ns:Type 2 diabetes mellitus with other diabetic kidney complication (HCC) Take 1 tablet (81 mg) by mouth Once per day. 90 tablet 3 024 Active betamethasone, augmented, (Diprolene) 0.05 % ointment APPLY TOPICALLY TWICE DAILY 45 g 1 025 Active Insulin Glargine-yfgn (Semglgregorio, yfgn,) 100 UNIT/ML solution pen-injector Inject 0.2 mL (20 Units) under the skin at bedtime. To use instead of his tresiba given no available in pharmacy 6 mL 2 025 2025 Active glucose blood (FREESTYLE LITE) test stripIndication s:Type 2 diabetes mellitus without complication, with long-term current use of insulin ([facility]) Test blood sugars 3 times a day 100 each 11 03/29/20 25 4:09 PM EST Active metFORMIN (Glucophage) 1000 MG tabletIndicatio ns:Type 2 diabetes mellitus with other diabetic kidney complication ([facility]) TAKE 1 TABLET BY MOUTH TWICE DAILY IN THE MORNING AND IN THE EVENING WITH MEALS 180 tablet 1 Active BD Pen Needle Short Ultrafine 31G X 8 MM misc USE DIRECTED ONCE DAILY 100 each Active Acetaminophen Extra Strength 500 MG tabletIndicatio ns:Acute pain of both shoulders TAKE 1 TABLET BY MOUTH EVERY 8 HOURS 60 tablet 3 Active Additional Information Patient not taking.Reported on 03/21/2025 guaiFENesin (Mucinex) 600 MG 12 hr tablet Take 2 tablets (1,200 mg) by mouth if needed in the morning and at bedtime for cough. Do not crush, chew, or split. 20 tablet 025 2025 Active insulin degludec (Tresiba FlexTouch) 100 UNIT/ML injection Administer 20 units subcutaneously nightly 6 mL 04/10/20 25 4:30 PM EST Active ibuprofen 800 MG tabletIndicatio ns:Hip osteomyelitis, left ([facility]) TAKE 1 TABLET BY MOUTH THREE TIMES DAILY NEEDED FOR MILD PAIN 60 tablet 025 Active Additional Information Patient not taking.Reported on 03/21/2025 lisinopril 5 MG tabletIndicatio ns:Primary hypertension TAKE 1 TABLET BY MOUTH DAILY 90 tablet 1 03/29/20 25 4:09 PM EST Active loratadine (Claritin) 10 MG tabletIndicatio ns:Seasonal allergies Take 1 tablet (10 mg) by mouth in the morning. 90 tablet Active lisinopril 5 MG tabletIndicatio ns:Primary hypertension TAKE 1 TABLET BY MOUTH EVERY DAY 90 tablet 1 05/28/06 Discontinued loratadine (Claritin) 10 MG tabletIndicatio ns:Seasonal allergies TAKE 1 TABLET BY MOUTH EVERY MORNING 90 tablet 2024 Discontinued(R eorder (will not trigger notification to Pharmacy)) carbamide peroxide (Debrox) 6.5 % otic solutionIndicat ions:Bilateral impacted cerumen Administer 5-10 drops into affected ear(s) 2 times daily for 4 days. 30 mL 2024 Active Problems Problem Noted Date Diagnosed Date Pulmonary nodule 02/19/2025 Assessment & Plan (02/19/2025 1:21 PM EDT): Pt had a Chest CT 11/2024 that showed: Small pulmonary nodules and groundglass densities. Fleischner Society recommends CT at 6-12 months to confirm persistence, then CT every 2 years until 5 years. Thyroid nodule 02/19/2025 Assessment & Plan (02/19/2025 1:22 PM EDT): Pt had an incidental finding on Chest CT done 11/2024 that showed: Left thyroid gland nodule or cyst. Follow-up with ultrasound to characterize. Was recommended Pressure injury of left buttock, stage 4 Assessment & Plan (02/19/2025 1:36 PM EDT): Being followed at wound clinic Recent CT done by Dr Lazcano showed: CT/CT abdomen pelvis w IV con IMPRESSION: There are new sclerotic changes in the left ischium adjacent to an area of soft tissue ulceration raising concern for chronic osteomyelitis. Complete edentulism 02/07/2025 Decreased hearing of both ears 10/04/2024 Assessment [...] of eczema Plan: triamcinolone BID, dermatology referral Chronic right shoulder pain 06/14/2023 Assessment & Plan (02/19/2025 1:33 PM EDT): Previously PT completed with good results X-rays 2023 showed: IMPRESSION: 1. There is mild osteoarthritic change of the right glenohumeral joint, and moderately severe osteoarthritic change is seen of the right acromioclavicular joint. 2. No fracture or dislocation is seen. Plan: Ortho evaluation for consideration of steroid injection. Assessment & Plan (09/13/2023 1:43 PM EDT): New onset. 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 Full rom although painful, train brake operator redness, no swelling, no deformity, no hx [...] being followed at the wound clinic at [facility] as well, still has some wounds being [...] being followed at the wound clinic at [facility] as well, still has some wounds being [...] being followed at the wound clinic at [facility] as well, still has some wounds being [...] being followed at the wound clinic at [facility] as well, still has some wounds being followed Left hip pain 05/11/2022 Assessment & Plan (05/11/2022 12:54 PM EST): Pt here for a sick visit with c/o moderate to severe left hip pain, seen at the office of Video Software Engineer ( Dr Lazcano ) who ordered [...] Hip osteomyelitis, left 05/11/2022 Assessment & Plan (02/19/2025 1:36 PM EDT): MRI Pelvis 02/20/2024 showed: IMPRESSION: [...] in the ischium. Under the care of [facility] Wound clinic who recommended ID consultation. Seen [...] surgery by wound clinic. Assessment & Plan (06/14/2024 1:26 PM EST): [...] in the ischium. Under the care of [facility] Wound clinic who recommended ID consultation. Seen [...] in the ischium. Under the care of [facility] Wound clinic who recommended ID consultation. Seen by Dr. Gomez 03/07/2024 Who recommended PO Linezolid x 21 days In the past he was treated with IV Antibiotics. He finished Ertapenem x 6 weeks He was also seen by Inga back in 06/14/2022 they reviewed x-rays and [...] with patient's surgeon Dr. Barnett at the [facility] Wound clinic who recommended ID consultation. She [...] with patient's surgeon Dr. Barnett at the [facility] Wound clinic who recommended ID consultation. She [...] classified else where 05/11/2022 Assessment & Plan (02/19/2025 1:27 PM EDT): Patient here for a f/u [...] repeat Colonoscopy Last seen by Dr. Lazcano 01/09/2025. Recommended Venofer infusions Assessment & Plan (10/04/2024 1:14 PM EDT): [...] Normal Colonoscopy: Pt had Cologuard with his Audio Narrator reported as Positive they discussed with him [...] Normal Colonoscopy: Pt had Cologuard with his Audio Narrator reported as Positive they discussed with him [...] Normal Colonoscopy: Pt had Cologuard with his Audio Narrator reported as Positive they discussed with him [...] (11/23/2023 6:22 PM EDT): -I requested today community health nurse staff to check status of wheelchair and [...] [place] Essential hypertension 04/26/2018 Assessment & Plan (02/19/2025 1:25 PM EDT): Patient here for a f/u [...] counseled about weight loss. Assessment & Plan (01/22/2025 12:39 PM EDT): Patient here for a f/u [...] counseled about weight loss. Assessment & Plan (10/04/2024 1:15 PM EDT): [...] about weight loss. Type 2 diabetes mellitus wit h diabetic polyneuropathy, with long-term current use of insulin 04/15/2017 Assessment & Plan (02/19/2025 1:28 PM EDT): Here for a f/u DM controlled He is on a regimen of: Levemir 20 units sq q PM and Metformin 1000 mg po BID Hgb A1c 02/19/2025: 7 from 6.2 from 7.1 Eye exam was last done on: 08/22/[address] by head transfer clerk Dr. Christianson Microalbumin checked on: 08/17/2024 Pt on an RIDDHI inhibitor Foot check not done. Pt is paraplegic Pt reports compliance with Asa 81 mg po daily Plan: continue current regimen f/u in 4 months Pt advised to: adhere to diabetic diet check your blood sugars regularly check your feet on a daily basis Assessment & Plan (01/22/2025 12:39 PM EDT): Here for a f/u DM controlled He is on a regimen of: Levemir 20 units sq q PM and Metformin 1000 mg po BID Hgb A1c 10/04/2024: 6.2 from 7.1 Eye exam was last done on: 08/22/2024 by head transfer clerk Dr. Christianson Microalbumin checked on: 08/17/2024 Pt on an RIDDHI inhibitor Foot check not done. Pt is paraplegic Pt reports compliance with Asa 81 mg po daily Plan: continue current regimen f/u in 4 months Pt advised to: adhere to diabetic diet check your blood sugars regularly check your feet on a daily basis Assessment & Plan (10/04/2024 1:22 PM EDT): Here for a f/u DM controlled He is on a regimen of: Levemir 20 units sq q PM and Metformin 1000 mg po BID Hgb A1c 10/04/2024: 6.2 from 7.1 Eye exam was last done on: 08/22/2024 by head transfer clerk Dr. Christianson Microalbumin checked on: 08/17/2024 Pt [...] exam was last done on: 12/2023 by head transfer clerk Dr. Christianson Microalbumin checked on: 06/14/2023 was: [...] exam was last done on: 12/2023 by head transfer clerk Dr. Christianosn Microalbumin checked on: 06/14/2023 was: 23 Pt [...] exam was last done on: 2020 by head transfer clerk Microalbumin checked on: 01/04/2022 was: 0.4 Will [...] exam was last done on: 2020 by head transfer clerk Microalbumin checked on: 01/04/2022 was: 0.4 Will [...] exam was last done on: 2020 by head transfer clerk Microalbumin checked on: 01/04/2022 was: 0.4 Will [...] exam was last done on: 2020 by head transfer clerk Microalbumin checked on: 01/04/2022 was: 0.4 Pt [...] exam was last done on: 2020 by head transfer clerk Microalbumin checked on: 01/04/2022 was: 0.4 Pt [...] Encounters Date Type Department Care Team Description 04/15/2025 Refill [facility] [address] [place] [address] Jose Baker MD Seasonal allergies 04/06/2025 Telephone [facility] [address] [place] [phone] Flora Swanson, RN Paperwork/Forms 04/05/2025 1:30 PM EST Office Visit [facility] [address] [place] [address] Dl Vásquez DDS Complete edentulism, unspecified edentulism class (Primary Dx) 03/29/2025 Telephone [facility] [address] [place] [address] Jose Baker MD May03/21/2025 1:30 PM EST Office Visit [facility] [address] [place] [address] Dl Vásquez DDS Complete edentulism, unspecified edentulism class (Primary Dx) 03/21/2025 Refill [facility] [address] [place] [address] Jose Baker MD Primary hypertension 03/11/2025 5:20 PM EDT Office Visit [facility] [address] [place] [phone] Carlee Cornell, CAR KNOCKER Bilateral impacted cerumen (Primary Dx) 03/11/2025 Travel 03/07/2025 Refill [facility] [address] [place] [address] Jose Baker MD Hip osteomyelitis, left (HCC) 03/06/2025 Telephone [facility] [address] [place] [phone] Jose Baker MD 03/01/2025 2:30 PM EDT Office Visit [facility] [address], [place] [address] Dl Vásquez DDS Complete edentulism, unspecified edentulism class (Primary Dx) 02/19/2025 1:00 PM EDT Office Visit [facility] [address], [place] [address] Jose Baker MD Type 2 diabetes mellitus with diabetic polyneuropathy, with long-term current use of insulin (HCC) (Primary Dx); Pulmonary nodule; Type 2 diabetes mellitus without complication, with long-term current use of insulin (HCC); Thyroid nodule; Essential hypertension; Anemia in other chronic diseases classified elsewhere; Pressure injury of left buttock, stage 4 (HCC); Chronic right shoulder pain; Hip osteomyelitis, left (HCC); Encounter for immunization 02/19/2025 Travel 02/18/2025 Telephone [facility] [place] [address] Jose Baker MD CHART PREP 02/07/2025 10:00 AM EDT Office Visit [facility] [address] [place] [address] Dl Vásquez DDS Complete edentulism, unspecified edentulism class (Primary Dx) 02/04/2025 Orders Only [facility] [place] [address] Raysa Hicks MD 02/04/2025 Telephone [facility] [place] [address] Jose Baker MD Medication Question 01/23/2025 Telephone [facility] [place] [address] Jose Baker MD Durable Medical Equipment 01/22/2025 10:00 AM EDT Office Visit [facility] [place] [address] Raysa Hicks MD Type 2 diabetes mellitus without complication, with long-term current use of insulin (CMS/HCC) (Primary Dx); Acute respiratory failure with hypoxia (CMS/HCC); Mild intermittent asthma with acute exacerbation; Essential hypertension 01/22/2025 Travel 01/21/2025 Telephone [facility] [address] [place] [address] Raysa Hicks MD chart prep 01/18/2025 Telephone [facility] [address] [place] [address] Jose Baker MD Care Coordination (C3/CM PT1) 01/17/2025 Telephone [facility] [address] [place] [address] Jose Baker MD chart prep 2025 Telephone [facility] [address] [place] [address] Jose Baker MD Hospital Follow-up 2025 Refill [facility] [address] [place] [address] Jose Baker MD Seasonal allergies; Acute pain of both shoulders from Last 3 Months Immunizations Immunization Administration Dates Next Due Hep B, adult 12/22/2021,10/11/2017,09/08/2017 Influenza High-dose Quadriva lent Preservative Free 01/21/2022,02/19/2021,03/21/2020 Influenza injectable quadriv alent IIV4 with preservative 03/27/2018 Influenza injectable quadriv alent preservative free 02/10/2023,02/26/2019 Influenza, High Dose Seasona l, Preservative Free 02/19/2025,03/15/2024 Pfizer Covid-19 Vaccine 12+ 04/28/2023 Pneumococcal Conjugate [...] Date Recorded Patient Health Questionnaire-9 Score 0 01/22/2025 Patient Health Questionnaire-9 Score 0 01/22/2025 Last PHQ-9: Questionnaire Data Not on file 0 01/22/2025 Housing Stability Answer Date Recorded What is [...] Date Recorded Patient Health Questionnaire-2 Score 0 01/22/2025 Internet Access Answer Date Recorded Internet Access [...] Sign Reading Time Taken Comments Blood Pressure 107/61 03/11/2025 5:25 PM EDT Pulse 94 03/11/2025 5:25 PM EDT Temperature 36 C (96.8 F) 03/11/2025 5:25 PM EDT Respiratory Rate 20 03/11/2025 5:25 PM EDT Oxygen Saturation 100% 03/11/2025 5:25 PM EDT Inhaled Oxygen Concentration - - Weight 85.7 kg (189 lb) 02/19/2025 1:20 PM EDT Height 188 cm (6' 2 ) 02/19/2025 1:20 PM EDT Body Mass Index 24.27 02/19/2025 1:20 PM EDT Plan of Treatment Upcoming Encounters Date Type Department Care Team (Late st Contact Info) Description 05/27/2025 2:30 PM EST Office Visit [facility] [address] [place] [address] Dl Vásquez DDS [address] [place] [address] 06/04/2025 1:30 PM EST Office Visit [facility] [address], [place] [phone] Jose Baker MD [address] [place], [place] [phone] Health Maintenance Due Date Last Done Comments CT Colonography 1955 Colonoscopy 1955 Colorectal Cancer Screening 1955 FIT DNA/Cologuard 1955 FIT 1955 FOBT 1955 Sigmoidoscopy 1955 Diabetes: Foot Exam 1965 Eye Exam 1965 Alcohol/Substance Use Screening 1967 Hepatitis C Screening 1973 RSV Patients and Patients Aged 60 years or older (1 - Risk 50-74 years 1-dose series) 2005 COVID-19 Vaccine ( season) 2025 04/28/2023, 12/22/2021, 08/04/2021, Additional history exists Diabetes: Hemoglobin A1C 05/22/20252 025, 10/04/2024, 06/14/2024, Additional history exists Dental Oral Exam 08/08/2025 02/07/2025, , 04/27/2017 Lipid Panel 08/17/2025 08/17/2024, 11/13, 05/27/2023, Additional history exists SDOH Screening 09/27/2025 09/27/2024 Depression Screening 01/22/2026 01/22/2025, 01/23/20 25 Tobacco Screening 04/05/2026 04/05/2025 Dental X-Ray: Full Mouth 02/09/2028 025, 01/11/2022, 04/27/2017 DTaP/Tdap/Td Vaccines (3 - Td or Tdap) 03/25/2028 03/25/2018, 09/08/2017 Hepatitis B Vaccines Completed 12/22/2021, 10/11/2017, 09/08/2017 Pneumococcal Vaccine: 50+ Years Completed 12/22/2021, 09/08/2017, 03/15/2012 Zoster Vaccines Completed 03/09/2022, 12/15, 09/09/2017 Influenza Vaccine Completed 02/19/2025, , 02/10/2023, Additional history exists Dental Prophylaxis Discontinued Dental X-Ray: Bitewings Discontinued HIB Vaccines Aged Out No longer eligi [...] on patient's age to complete this topic Goals Goal Patient Goal Type Associated Problems Recent Progress Patient-Stated? Author Help patients manage their type 2 diabetes Care Plan Help patients manage their type 2 diabetes Lili Benjamin MA Weekly blood pressure task Care Plan Weekly blood pressure task No Lili Lopez MA Help patients manage their type 2 diabetes Care Plan Help patients manage their type 2 diabetes No Lili Lopez MA Patient has chronic kidney disease Care Plan Patient has chronic kidney disease Lili Benjamin MA Weekly blood pressure task Care Plan Weekly blood pressure task No Lili Lopez MA Patient has chronic kidney disease Care Plan Patient has chronic kidney disease Lili Benjamin MA Weekly blood pressure task Care Plan Weekly blood pressure task No [place], Dl, DDS Weekly blood pressure task Care Plan Weekly blood pressure task No Dl Vásquez DDS Patient has chronic kidney disease Care Plan Patient has chronic kidney disease No Dl Vásquez DDS Patient has chronic kidney disease Care Plan Patient has chronic kidney disease No Dl Vásquez DDS Weekly blood pressure task Care Plan Weekly blood pressure task No Flora Swanson RN Weekly blood pressure task Care Plan Weekly blood pressure task No Flora Swanson, CAROLEE Patient has chronic kidney disease Care Plan Patient has chronic kidney disease No Flora Swanson RN Patient has chronic kidney disease Care Plan Patient has chronic kidney disease No Flora Swanson RN Weekly blood pressure task Care Plan Weekly blood pressure task No Kristen Shine LPN Weekly blood pressure task Care Plan Weekly blood pressure task No Kristen Shine DENTAL HYGIENE TEACHER Patient has chronic kidney disease Care Plan Patient has chronic kidney disease No Kristen Shine DENTAL HYGIENE TEACHER Patient has chronic kidney disease Care Plan Patient has chronic kidney disease No Kristen Shine LPN Procedures Procedure Name Priority Date/Time Associated Diagnosis Comments US THYROID Routine 04/17/2025 3:12 PM EST Thyroid nodule BITE REGISTRATION Routine 04/05/2025 1:3 0 PM EST DENTURE IMPRESSION Routine 03/21/2025 1: 30 PM EST DENTURE IMPRESSION Routine 03/01/2025 2: 30 PM EDT POCT GLYCATED HEMOGLOBIN, TOTAL Routine 02/19/2025 1:26 PM EDT Type 2 diabetes mellitus without complication, with long-term current use of insulin (HCC) POCT GLUCOSE Routine 02/19/2025 1:22 PM EDT Type 2 diabetes mellitus without complication, with long-term current use of insulin ([facility]) PERIODIC ORAL EVALUATION - ESTABLISHED PATIENT Routine 02/07/2025 10:00 AM EDT PANORAMIC RADIOGRAPHIC IMAGE Routine 02/07/2025 10:00 AM EDT LIPID PANEL, STANDARD Routine 08/17/2024 11:17 AM EDT Type 2 diabetes mellitus without complication, with long-term current use of insulin (CMS/HCC) from Last 3 Months or Most Recently Relevant to Health Maintenance Results * US Thyroid (04/17/2025 3:12 PM EST) Anatomical Region Laterality Modality Head, Neck Ultrasound 04/17/2025 3:12 PM EST Narrative 04/17/2025 4:06 PM EST [address] [address] Ultrasound Report Signed Patient: Israel Monroy MR#: [id number] : 1955 Acct:[id number] Age/Sex: 70 / M ADM Date: 04/17/25 Loc: HO.US Attending Dr: Jose Grayson MD Ordering Physician: Jose Grayson MD Date of Service: 04/17/25 Procedure(s): US thyroid Accession Number(s): [id number] cc: Jose Grayson MD Reason for Exam: left thyroid nodule seen on Chest CT EXAMINATION: US THYROID CLINICAL INFORMATION: Left thyroid nodule identified on a CT chest. COMPARISON: Correlated to CT chest dated January 10, 2025. TECHNIQUE: Linear transducer grayscale and color Doppler examination with attention to the region of the thyroid. FINDINGS: Some images on PACS labeled by the isotope technologist as right cystic nodule. SIZE: Measurements of the thyroid lobes and nodules are given in sagittal, anteroposterior and transverse dimensions respectively. Right Thyroid Lobe: 5.1 x 2.6 x 1.5 cm, volume 10.6 mL. Parenchyma: The gland echotexture is normal. Thyroid vascularity is normal. Left Thyroid Lobe: 4.7 x 2.2 x 2.3 cm, volume 12.3 mL. Parenchyma: The gland echotexture is normal. Thyroid vascularity is normal. Isthmus: 0.4 cm in maximum AP dimension. Estimated total number of nodules greater than or equal to 1 cm: 1. Cementer Machine Applicator nodules are described as follows: 1. Location: The midportion left lobe. Size: 2.2 x 1.8 x 1.5 cm, . Nodule characteristics: Composition: Mixed cystic and solid (1). Echogenicity: Anechoic (0). Shape: Not taller than wide (0). Margins: Smooth (0). Echogenic Foci: Punctate echogenic foci (3). ACR TI-RADS total points: 4 ACR TI-RADS category: 4 NODES: No lymphadenopathy is seen in the tissue surrounding the thyroid gland. US/US thyroid IMPRESSION: ACR TI RADS category 4, left thyroid nodule. ACR TI-RADS RECOMMENDATION REFERENCE: Ultrasound-guided fine-needle aspiration, followup ultrasound, no further follow up. * TR1 (0 point) and TR2 (2 points): No FNA or follow up. * TR3 (3 points): FNA if more than or equal to 2.5 cm in maximum dimension, followup ultrasound in 1, 3 and 5 years if 1.5 to 2.4 cm in maximum dimension. * TR4 (4-6 points): FNA if more than or equal to 1.5 cm in maximum dimension, followup ultrasound in 1, 2, 3 and 5 years if 1 to 1.4 cm in maximum dimension. * TR5 (more than or equal to 7 points): FNA if more than or equal to 1 cm in maximum dimension, followup ultrasound every year for 5 years if 0.5 to 0.9 cm in maximum dimension. * TR3, TR4 or TR5 nodules that are below the size threshold for followup receive no follow up. Electronically signed by: Mark Wells MD 04/17/2025 04:04 PM [facility] Dictated By: Mark Gutierrez MD Signed By: <Electronically signed by Mark Swanson MD in OV> 04/17/25 1604 DD/ 1512 TD/TT: 04/17/25 1530 Facilities Director: Procedure Note Donotuseinterpreter, Image - 04/17/[address] [address] Ultrasound Report Signed Patient: Israel Monroy LMR#: [id number] : 5Acct:[id number] Age/Sex: 70 / MADM Date: 04/17/25 Loc: HO.US Attending Dr: Jose Grayson MD Ordering Physician: Jose Grayson MD Date of Service: 04/17/25 Procedure(s): US thyroid Accession Number(s): [id number] cc: Jose Grayson MD Reason for Exam: left thyroid nodule seen on Chest CT EXAMINATION: US THYROID CLINICAL INFORMATION: Left thyroid nodule identified on a CT chest. COMPARISON: Correlated to CT chest dated January 10, 2025. TECHNIQUE: Linear transducer grayscale and color Doppler examination with attention to the region of the thyroid. FINDINGS: Some images on PACS labeled by the isotope technologist as right cystic nodule. SIZE: Measurements of the thyroid lobes and nodules are given in sagittal, anteroposterior and transverse dimensions respectively. Right Thyroid Lobe: 5.1 x 2.6 x 1.5 cm, volume 10.6 mL. Parenchyma: The gland echotexture is normal. Thyroid vascularity is normal. Left Thyroid Lobe: 4.7 x 2.2 x 2.3 cm, volume 12.3 mL. Parenchyma: The gland echotexture is normal. Thyroid vascularity is normal. Isthmus: 0.4 cm in maximum AP dimension. Estimated total number of nodules greater than or equal to 1 cm: 1. Cementer Machine Applicator nodules are described as follows: 1. Location: The midportion left lobe. Size: 2.2 x 1.8 x 1.5 cm, . Nodule characteristics: Composition: Mixed cystic and solid (1). Echogenicity: Anechoic (0). Shape: Not taller than wide (0). Margins: Smooth (0). Echogenic Foci: Punctate echogenic foci (3). ACR TI-RADS total points: 4 ACR TI-RADS category: 4 NODES: No lymphadenopathy is seen in the tissue surrounding the thyroid gland. US/US thyroid IMPRESSION: ACR TI RADS category 4, left thyroid nodule. ACR TI-RADS RECOMMENDATION REFERENCE: Ultrasound-guided fine-needle aspiration, followup ultrasound, no further follow up. * TR1 (0 point) and TR2 (2 points): No FNA or follow up. * TR3 (3 points): FNA if more than or equal to 2.5 cm in maximum dimension, followup ultrasound in 1, 3 and 5 years if 1.5 to 2.4 cm in maximum dimension. * TR4 (4-6 points): FNA if more than or equal to 1.5 cm in maximum dimension, followup ultrasound in 1, 2, 3 and 5 years if 1 to 1.4 cm in maximum dimension. * TR5 (more than or equal to 7 points): FNA if more than or equal to 1 cm in maximum dimension, followup ultrasound every year for 5 years if 0.5 to 0.9 cm in maximum dimension. * TR3, TR4 or TR5 nodules that are below the size threshold for followup receive no follow up. Electronically signed by: Mark Wells MD 04/17/2025 04:04 PM [facility] Dictated By: Mark Gutierrez MD Signed By: <Electronically signed by Mark Swanson MDin OV> 04/17/25 1604 DD/ 1512 TD/TT: 04/17/25 1530 Facilities Director: Jose Carbajal MD IMG US PROCEDURES Fin al Result * (ABNORMAL) POCT Hgb A1c (02/19/2025 1:26 PM EDT) Hemoglobin A1C 7.0(A) 4.0 - 5.7 % QC Media Lot # [id number] Lot# Expiration Date 5, Blood 02/19/2025 1:26 PM EDT Result [facility] Jose Carbajal MD POINT OF CARE TEST EN TER/EDIT ORDERABLES Final Result * POCT Glucose (02/19/2025 1:22 PM EDT) Glucose Blood, POC 156 60 - 200 mg/dL QC Media Lot # [id number] Lot# Expiration Date 2,432, Blood Capillary blood specimen / Unknown 02/19/2025 1:22 PM EDT Jose Carbajal MD POINT OF CARE TEST ENTER/EDIT ORDERABLES Edited Result - Final * (ABNORMAL) Lipid Panel, Standard (08/17/2024 11:17 AM EDT) Triglycerides 46 <150 mg/dL [facility] Comment:Desirable Triglyceri de: less than 150 mg/dLBorderline High Triglyceride 150-199 mg/dLHigh Triglyceride: 200-499 mg/dLVery High Triglyceride: greater than or equal to 5OO mg/dL Cholesterol 109 <200 mg/dL [facility] Comment:Desirable Cholestero l: less than 200 mg/dLBorderline High Cholesterol: 200-239 mg/dLHigh Cholesterol: greater than 239 mg/dL LDL Cholesterol Calculated 66 <100 mg/dL [facility] Comment:Desirable LDL: less than 100 mg/dLNear Optimal/Above Optimal LDL: 110- 129 mg/dLBorderline High LDL: 130-159 mg/dLHigh LDL: 160-189 mg/dLVery High LDL: greater than or equal to 190 mg/dL HDL Cholesterol 34(L) >40 mg/dL [facility] Comment:Desirable HDL: great er than 40 mg/dL Note: This HDL assay may give artificially low results in patients with liver disease. Blood Venous blood specimen / Unknown 08/17/2024 11:17 AM EDT 08/17/2024 1:41 PM EDT us Jose Carbajal MD LAB BLOOD ORDERABLES Final Result [facility] [address] [place] [phone] from Last 3 Months or Most Recently Relevant to Health Maintenance Additional Health Concerns Active Problems Noted Date Diagnosed Date Help patients manage their type 2 diabetes 03/29 Weekly blood pressure task 03/29/2025 Help patients manage their type 2 diabetes 03/29 Patient has chronic kidney disease 03/29/2025 Weekly blood pressure task 03/29/2025 Patient has chronic kidney disease 03/29/2025 Weekly blood pressure task 04/05/2025 Weekly blood pressure task 04/05/2025 Patient has chronic kidney disease 04/05/2025 Patient has chronic kidney disease 04/05/2025 Weekly blood pressure task 04/06/2025 Weekly blood pressure task 04/06/2025 Patient has chronic kidney disease 04/06/2025 Patient has chronic kidney disease 04/06/2025 Weekly blood pressure task 04/15/2025 Weekly blood pressure task 04/15/2025 Patient has chronic kidney disease 04/15/2025 Patient has chronic kidney disease 04/15/[address] [place] [address] [facility] STANDARD MEDICARE [address] [place] [address] DENTAL-[facility] MEDICAID STAND ADULT [address] [place] [address] [address] [place] [address] [address] [place] [address] Care Teams Public Stenographer Relationship Specialty Start Date End Date Jose Baker MD [address] [place] [address] PCP - General Internal Medicine 03/22/[address] [place] [address] Drive 3rd [place] [address] Gastroenterology 06/14/24 [facility] 09/10/23
--- OUTSIDE RECORDS SUMMARY | 2025-04-17 17:49 | XMS_ITS | Encounter Summary ---
Author Organization [employer] Address [address] [place] [address] 7t [place] [address] Care Team Providers Care Company Laundry Worker Name Role Phone Jose Baker MD Primary Care Provide r August Reason for Visit * Reason Comments Med Refill Encounter Details Date Type Department Care Team ([facility] st Contact Info) Description 03/30/2023 Refill [facility] [address] [place], [place] [phone] Jose Baker MD 230 [place], [place] [phone] Hip osteomyelitis, left (CMS/HCC) Social History Tobacco [...] Description 05/27/2025 2:30 PM EST Office Visit [facility] ADULT DENT[facility] [address] [place] [address] Dl Vásquez DDS [address] [place] [address] 06/04/2025 1:30 PM EST Office Visit [facility] [address] [place] [address] Jose Baker MD 230 [place] [address] documented as of this encounter Visit Diagnoses Diagnosis Hip osteomyelitis, left (HCC) Unspecified osteomyelitis, pelvic region and thigh documented in this encounter Additional Health Concerns Assessment Noted Time PHQ-9 Depression Total Score: 0 02/11/20 23 1:23 PM EDT documented as of this encounter Care Teams Company Laundry Worker Relationship Specialty Start Date End Date Jose Baker MD [address] [place] [address] PCP - General Internal Medicine 03/22/19August [address] [place] [address] 3rd [place] [address] Gastroenterology 06/14/24 [facility] 09/10/23 documented as of this encounter
--- OUTSIDE RECORDS SUMMARY | 2025-04-17 17:49 | XMS_ITS | Encounter Summary ---
Author Organization [employer] Address [address] [facility] 7t [place] [address] Care Team Providers Care Business Development Representative Name Role Phone Jose Baker MD Primary Care Provide r August Reason for Visit * Reason Comments Med Refill Encounter Details Date Type Department Care Team ([facility] st Contact Info) Description 12/30/2024 Refill [facility] [address] [place], [place] [phone] Jose Baker MD [address] [place] [address] Acute pain of both shoulders Social History [...] Description 05/27/2025 2:30 PM EST Office Visit [facility] ADULT [facility]ENT[facility] [address] [place] [address] Dl Vásquez DDS [address] [place] [address] 06/04/2025 1:30 PM EST Office Visit [facility] MEDICINE [address] [place] [address] Jose Baker MD [address] [place] [address] documented as of this encounter Visit Diagnoses Diagnosis Acute pain of both shoulders documented in this encounter Additional Health Concerns Assessment Noted Time PHQ-9 Depression Total Score: 0 11/23/19 24 9:34 AM EDT documented as of this encounter Care Teams Business Development Representative Relationship Specialty Start Date End Date Jose Baker MD [address] [place] [address] PCP - General Internal Medicine 03/22/[address] [place] [address] Drive 3rd Floor [place] [address] Gastroenterology 06/14/24 [facility] 09/10/23 documented as of this encounter
--- OUTSIDE RECORDS SUMMARY | 2025-04-17 17:49 | XMS_ITS | Encounter Summary ---
Author Organization [employer] Address [address] [facility] 7t [place] [address] Care Team Providers Care Pst Manager Name Role Phone Jose Baker MD Primary Care Provide r August Reason for Visit * Reason Comments Med Refill Encounter Details Date Type Department Care Team ([facility] st Contact Info) Description 11/30/2024 Refill [facility] [address] [place] [address] Annmarie Sandoval MD [address] [place] [address] Social History Tobacco Use Types Packs/Day Years [...] Description 05/27/2025 2:30 PM EST Office Visit [facility]ULT [facility] [address] [place] [address] Dl Vásquez DDS [address] [place] [address] 06/04/2025 1:30 PM EST Office Visit [facility] [address] [place] [address] Jose Baker MD [address] [place] [address] documented as of this encounter Visit Diagnoses Not on filedocumented in this encounter Additional Health Concerns Assessment Noted Time PHQ-9 Depression Total Score: 0 11/23/19 24 9:34 AM EDT documented as of this encounter Care Teams Pst Manager Relationship Specialty Start Date End Date Jose Baker MD [address] [place] [address] PCP - General Internal Medicine 03/22/[address] 3rd [place] [address] Gastroenterology 06/14/24 [facility] 09/10/23 documented as of this encounter
--- OUTSIDE RECORDS SUMMARY | 2025-04-17 17:49 | XMS_ITS | Encounter Summary ---
Author Organization [employer] Address [address] [place] [address] 7t [place] [address] Care Team Providers Care Iron Worker Apprentice Name Role Phone Jose Baker MD Primary Care Provide r August Unavailable Reason for Visit * Reason Onset Date Comments Med B Form 04/05/2023 Encounter Details Date Type Department Care Team ([facility] st Contact Info) Description 04/05/2023 Telephone [facility] MED[facility] 230 [place], [place] [phone] Jose Baker MD 230 [place], [place] [phone] Med B Form Social History Tobacco Use [...] Office Visit [facility] ADULT DENTAL [address] [place] [address] Dl Vásquez DDS [address] [place] [address] 06/04/2025 1:30 PM EST Office Visit [facility] MED[facility]INE [address] [place] [address] Jose Baker MD 230 [place] [address] documented as of this encounter Visit Diagnoses Not on filedocumented in this encounter Additional Health Concerns Assessment Noted Time PHQ-9 Depression Total Score: 0 02/11/20 1:23 PM EDT documented as of this encounter Care Teams Iron Worker Apprentice Relationship Specialty Start Date End Date Jose Baker MD [address] [place] [address] PCP - General Internal Medicine 03/22/[address] 3rd Floor [facility] [address] Gastroenterology 06/14/24 [facility] 09/10/23 documented as of this encounter
--- OUTSIDE RECORDS SUMMARY | 2025-04-17 17:50 | XMS_ITS | Encounter Summary ---
Author Organization [employer] Address [address] [place] [address] 7t [place] [address] Care Team Providers Care Soccer Commentator Name Role Phone Jose Baker MD Primary Care Provide r August Reason for Visit * Reason Comments Med Refill Encounter Details Date Type Department Care Team ([facility] st Contact Info) Description 04/19/2024 Refill [facility] 230 [place], [place] [phone] Jose Baker MD 230 [place] [address] Acute pain of both shoulders Social History [...] Description 05/27/2025 2:30 PM EST Office Visit [facility] [address] [place] [address] Dl Vásquez DDS [address] [place] [address] 06/04/2025 1:30 PM EST Office Visit [facility] [address] [place] [address] Jose Baker MD [address] [place] [address] documented as of this encounter Visit Diagnoses Diagnosis Acute pain of both shoulders documented in this encounter Additional Health Concerns Assessment Noted Time PHQ-9 Depression Total Score: 0 11/23/19 24 9:34 AM EDT documented as of this encounter Care Teams Soccer Commentator Relationship Specialty Start Date End Date Jose Baker MD [address] [place] [address] PCP - General Internal Medicine 03/22/19August [address] 3rd [place] [address] Gastroenterology 06/14/24 [facility] 09/10/23 documented as of this encounter
--- OUTSIDE RECORDS SUMMARY | 2025-04-17 17:50 | XMS_ITS | Encounter Summary ---
Author Organization [employer] Address [address] [place] [address] 7[place] [address] Care Team Providers Care District Administrative Assistant Name Role Phone Jose Baker MD Primary Care Provide r August Reason for Visit * Reason Onset Date Comments Referral 11/21/2023 Encounter Details Date Type Department Care Team ([facility] st Contact Info) Description 11/21/2023 Telephone [facility] MED[facility]INE [address] [place], [place] [phone] Jose Baker MD 230 [place], [place] [phone] Referral Social History Tobacco Use Types Packs/Day [...] a podiatry referral after Dr Tea [facility] documented in this encounter Plan of Treatment Upcoming Encounters Date Type Department Care Team (Late st Contact Info) Description 05/27/2025 2:30 PM EST Office Visit [facility] ADULT DENTAL [address] [place] [address] Dl Vásquez DDS [address] [place] [address] 06/04/2025 1:30 PM EST Office Visit [facility] MED[facility]INE [address] [place] [address] Jose Baker MD 230 [place] [address] documented as of this encounter Visit Diagnoses Not on filedocumented in this encounter Additional Health Concerns Assessment Noted Time PHQ-9 Depression Total Score: 0 02/11/20 23 1:23 PM EDT documented as of this encounter Care Teams District Administrative Assistant Relationship Specialty Start Date End Date Jose Baker MD 230 [place] [address] PCP - General Internal Medicine 03/22/[address] 3rd Floor [place] [address] Gastroenterology 06/14/24 [facility] 09/10/23 documented as of this encounter
--- OUTSIDE RECORDS SUMMARY | 2025-04-17 17:50 | XMS_ITS | Encounter Summary ---
Author Organization [employer] Address [address] [place] [address] 7t [place] [address] Care Team Providers Care Linux Unix Administrator Name Role Phone Jose Baker MD Primary Care Provide r August Reason for Visit * Reason Comments Med Refill Encounter Details Date Type Department Care Team ([facility] st Contact Info) Description 10/04/2023 Refill [facility] 230 [place], [place] [phone] Jose Baker MD 230 [place], [place] [phone] Type 2 diabetes mellitus without complications (CMS/HCC); [...] Description 05/27/2025 2:30 PM EST Office Visit [facility] 230 [place] [address] Dl Vásquez DDS [address] [place] [address] 06/04/2025 1:30 PM EST Office Visit [facility] [address] [place] [address] Jose Baker MD 230 [place] [address] documented as of this encounter Visit Diagnoses Diagnosis Type 2 diabetes mellitus without complications (HCC) Hip osteomyelitis, left (HCC) Unspecified osteomyelitis, pelvic region and thigh documented in this encounter Additional Health Concerns Assessment Noted Time PHQ-9 Depression Total Score: 0 02/11/20 23 1:23 PM EDT documented as of this encounter Care Teams Linux Unix Administrator Relationship Specialty Start Date End Date Jose Baker MD [address] [place] [address] PCP - General Internal Medicine 03/22/[address] [place] [address] Drive 3rd [place] [address] Gastroenterology 06/14/24 [facility] documented as of this encounter
--- OUTSIDE RECORDS SUMMARY | 2025-04-17 17:50 | XMS_ITS | Encounter Summary ---
Author Organization [employer] Address [address] [place] [address] 7t [place] [address] Care Team Providers Care Machine Ironer Name Role Phone Jose Baker MD Primary Care Provide r August Unavailable Encounter Details Date Type Department Care Team (Late st Contact Info) Description 07/08/2023 Telephone [facility] MED[facility]INE 230 [place], [place] [phone] Jose Baker MD 230 [place], [place] [phone] Social History Tobacco Use Types Packs/Day Years [...] Miscellaneous Notes * Telephone Encounter - Virgie Smith - 07/08/2023 9:34 AM EST error documented in this encounter Plan of Treatment Upcoming Encounters Date Type Department Care Team (Late st Contact Info) Description 05/27/2025 2:30 PM EST Office Visit [facility] ADULT D[facility] [address] [place] [address] Dl Vásquez DDS [address] [place] [address] 06/04/2025 1:30 PM EST Office Visit [facility] MED[facility]INE [address] [place] [address] Jose Baker MD [address] [place] [address] documented as of this encounter Visit Diagnoses Not on filedocumented in this encounter Additional Health Concerns Assessment Noted Time PHQ-9 Depression Total Score: 0 02/11/20 23 1:23 PM EDT documented as of this encounter Care Teams Machine Ironer Relationship Specialty Start Date End Date Jose Baker MD 230 [place] [address] PCP - General Internal Medicine 03/22/19August [address] [place] [address] Drive 3rd [place] [address] Gastroenterology 06/14/24 Jourdan [facility] 09/10/23 documented as of this encounter
--- OUTSIDE RECORDS SUMMARY | 2025-04-17 17:50 | XMS_ITS | Clinical Summary ---
Author Organization 175 [facility] Address 175 [place] [address] Phone Care Team Providers Care Air Compressor Mechanic Name Role Phone Jose Grayson MD Primary [...] osteomyelitis involv ing ankle and foot, left ([facility] V24, [facility] V28) 01/02/2021 Encounters Date Type Department Care Team Description 03/20/2025 1:15 PM EST Office Visit [facility] [address] [phone] Irwin Caraballo DPM Primary osteoarthritis of both feet (Primary Dx); Bilateral foot pain; Dermatophytosis of nail; Pain in toe of right foot; Pain in toe of left foot; Diabetic mononeuropathy simplex ([facility] V24, [facility] V28); Metatarsalgia of both feet; Type II diabetes mellitus with peripheral circulatory disorder ([facility] V24, [facility] V28); Corns and callosities; Acquired hammer toe of right foot; Hammer toe of left foot from Last 3 Months Social History Tobacco Use Types Packs/Day Years [...] 1:30 PM EDT Office Visit [facility] [address] [phone] Irwin Caraballo DPM [address] [phone] Health Maintenance Due Date Last Done Comments Colorectal Cancer Screening: Colonoscopy 1955 Diabetes: Annual Foot Exam 1965 Diabetes: Annual Retina Eye Exam 1965 RSV Immunization Adult Patients (1 - Risk 50-74 years 1-dose series) 2005 Falls Risk Assessment 04/17/2022 Hepatitis C Screening 04/17/2022 Medicare Annual Wellness Visit 04/17/2022 Social Influencers of Health Screening 04/17/2022 Diabetes: Annual Urine Albumin-Creatinine Ratio (uACR) 05/01/2022 Depression Screening 05/16/2024 COVID-19 Vaccine ( season) 2025 04/28/2023, 12/22/2021, 08/04/2021, Additional history exists Diabetes: Annual GFR (Glomerular Filtration Rate) 08/17/2025 08/17/2024, 02/03/2024 Hypertension/CHF/CAD Annual BMP Blood Test 08/17/2025 08/17/2024, 02/03/2024 Diabetes: Blood Sugar Control Test (HGBA1C) 08/20/2025 02/19/2025, 06/14/2024, 03/15/2024 DTaP,Tdap,and Td Vaccines (3 - Td or Tdap) 03/25/2028 03/25/2018, 09/08/2017 Cholesterol Screening (Lipid Panel) 08/17/2029 08/17/2024, 11/23/2023 Hepatitis B Vaccines Completed 12/22/2021, 10/11/2017, 09/08/2017 Pneumococcal Vaccine: 50+ Years Completed 12/22/2021, 09/08/2017, 03/15/2012 Zoster Vaccines Completed 03/09/2022, 12/15, 09/09/2017 Influenza Vaccine Completed 02/19/2025, , 02/10/2023, Additional history exists HIB Vaccines Aged Out [...] Insurance MEDICAID - [place] MEDICARE Care Teams Air Compressor Mechanic Relationship Specialty Start Date End Date Jose Grayson MD [address] [place] [address] [place] [phone] PCP - General Internal Medicine 04/08/21
--- OUTSIDE RECORDS SUMMARY | 2025-04-17 17:50 | XMS_ITS | Encounter Summary ---
Author Organization [employer] Address [address] [place] [address] 7[address] [place] [address] Care Team Providers Care Crane Man Name Role Phone Jose Baker MD Primary Care Provide r August Reason for Visit * Reason Onset Date Comments chart prep 01/21/2025 Encounter Details Date Type Department Care Team ([facility] st Contact Info) Description 01/17/2025 Telephone [facility] MEDICINE [address] [place], [place] [phone] Jose Baker MD [address] [place] [address] chart prep Social History Tobacco Use Types Packs/Day Years [...] encounter Miscellaneous Notes * Telephone Encounter - Wilbert Bhatia - 01/17/2025 2:08 PM EDT Patient calling requesting PT1 Home Address verified: Y/N: Yes Provider name or facility name: [address] [place] [address] Escort needed: Yes Do you have a wheelchair: Y/N: Yes If yes- Manual or electric: Electric Visits: (2x month) documented in this encounter Plan of Treatment Upcoming Encounters Date Type Department Care Team (Late st Contact Info) Description 05/27/2025 2:30 PM EST Office Visit [facility] ADULT DENTAL [address] [place] [address] Dl Vásquez DDS 230 [place] [address] 06/04/2025 1:30 PM EST Office Visit [facility] MEDICINE [address] [place] [address] Jose Baker MD [address] [place] [address] documented as of this encounter Visit Diagnoses Not on filedocumented in this encounter Additional Health Concerns Assessment Noted Time PHQ-9 Depression Total Score: 0 11/23/19 24 9:34 AM EDT documented as of this encounter Care Teams Crane Man Relationship Specialty Start Date End Date Jose Baker MD [address] [place] [address] PCP - General Internal Medicine 03/22/19August [address] [place] [address] 3rd [place] [address] Gastroenterology 06/14/24 [facility] documented as of this encounter
--- OUTSIDE RECORDS SUMMARY | 2025-04-17 17:50 | XMS_ITS | Encounter Summary ---
Author Organization [employer] Address [address] [place] [address] [address]t [place] [address] Care Team Providers Care Offal Separator Name Role Phone Jose Baker MD Primary Care Provide r August Unavailable Reason for Visit * Reason Onset Date Comments PT1 10/28/2023 Encounter Details Date Type Department Care Team (Late st Contact Info) Description 10/28/2023 Telephone [facility] MEDICINE [address] [place], [place] [phone] Jose Baker MD [address] [place], [place] [phone] PT1 Social History Tobacco Use Types Packs/Day [...] Y/N: Yes Provider name or facility name: [facility] Facility Address: [address] [place] [id number] Escort needed: Y/N: Yes Do you have a wheelchair: Y/N: Yes If yes- Manual or electric: Electric Visits: n/a documented in this encounter Plan of Treatment Upcoming Encounters Date Type Department Care Team (Late st Contact Info) Description 05/27/2025 2:30 PM EST Office Visit [facility] ADULT DENTAL [address] [place] [address] Dl Vásquez DDS [address] [place] [address] 06/04/2025 1:30 PM EST Office Visit [facility] MEDICINE [address] [place] [address] Jose Baker MD [address] [place] [address] documented as of this encounter Visit Diagnoses Not on filedocumented in this encounter Additional Health Concerns Assessment Noted Time PHQ-9 Depression Total Score: 0 02/11/20 1:23 PM EDT documented as of this encounter Care Teams Offal Separator Relationship Specialty Start Date End Date Jose Baker MD [address] [place] [address] PCP - General Internal Medicine 03/22/19 Smiley August [address] [place] [address] Drive 3rd Floor [place] [address] Gastroenterology 06/14/24 Jourdan DYE 09/10/23 documented as of this encounter
--- OUTSIDE RECORDS SUMMARY | 2025-04-17 17:50 | XMS_ITS | Encounter Summary ---
Author Organization [employer] Address [address] [place] [address] 7t [place] [address] Care Team Providers Care Clay Grinder Name Role Phone Jose Baker MD Primary Care Provide r August Unavailable Reason for Visit * Reason Comments Med Refill Encounter Details Date Type Department Care Team ([facility] st Contact Info) Description 06/01/2022 Telephone [facility] [address] [place], [place] [phone] Jose Baker MD [address] [place] [address] Med Refill Social History Tobacco Use Types [...] taking motrin 800 mg he bought in [place] for the longest time and nothing has [...] Description 05/27/2025 2:30 PM EST Office Visit [facility] ADULT DENTAL [address] [place] [address] Dl Vásquez DDS [address] [place] [address] 06/04/2025 1:30 PM EST Office Visit [facility] [address] [place] [address] Jose Baker MD [address] [facility] [place] [address] documented as of this encounter Visit Diagnoses Diagnosis Left hip pain Pain in joint, pelvic region and thigh documented in this encounter Care Teams Clay Grinder Relationship Specialty Start Date End Date Jose Baker MD [address] [place] [address] PCP - General Internal Medicine 03/22/19August [address] 3rd Floor [place] [address] Gastroenterology 06/14/24 Jourdan DYE 09/10/23 documented as of this encounter
--- OUTSIDE RECORDS SUMMARY | 2025-04-17 17:50 | XMS_ITS | Encounter Summary ---
Author Organization [employer] Address [address] [place] [address] 7t [place] [address] Care Team Providers Care Social Group Worker Name Role Phone Jose Baker MD Primary Care Provide r August Unavailable Encounter Details Date Type Department Care Team (Late st Contact Info) Description 02/04/2025 Orders Only [facility] MED[facility]INE [address] [place], [place] [phone] Raysa Hicks MD 230 [place], [place] [phone] Social History Tobacco Use Types Packs/Day Years [...] Description 05/27/2025 2:30 PM EST Office Visit [facility] ADULT DENTAL [address] [place] [address] Dl Vásquez DDS [address] [place] [address] 06/04/2025 1:30 PM EST Office Visit [facility] MEDICINE [address] [place] [address] Jose Baker MD [address] [place] [address] documented as of this encounter Visit Diagnoses Not on filedocumented in this encounter Additional Health Concerns Assessment Noted Time PHQ-9 Depression Total Score: 0 01/23/20 10:28 AM EDT documented as of this encounter Care Teams Social Group Worker Relationship Specialty Start Date End Date Jose Baker MD [address] [place] [id number] PCP - General Internal Medicine 03/22/[address] [place] [address] Gastroenterology [facility] documented as of this encounter
--- OUTSIDE RECORDS SUMMARY | 2025-04-17 17:50 | XMS_ITS | Encounter Summary ---
Author Organization [employer] Address [address] [place] [address] 7t [place] [address] Care Team Providers Care Supervisor Matrix Name Role Phone Jose Baker MD Primary Care Provide r August Reason for Visit * Reason Comments Med Refill Encounter Details Date Type Department Care Team ([facility] st Contact Info) Description 08/10/2023 Refill [facility] MED[facility]INE [address] [place], [place] [phone] Edwina Mace MD 230 [place], [place] [phone] Social History Tobacco Use Types Packs/Day Years [...] Description 05/27/2025 2:30 PM EST Office Visit [facility] ADULT DENTAL [address] [place] [address] Dl Vásquez DDS [address] [place] [address] 06/04/2025 1:30 PM EST Office Visit [facility] [address] [place] [address] Jose Baker MD [address] [place] [address] documented as of this encounter Visit Diagnoses Not on filedocumented in this encounter Additional Health Concerns Assessment Noted Time PHQ-9 Depression Total Score: 0 02/11/20 23 1:23 PM EDT documented as of this encounter Care Teams Supervisor Matrix Relationship Specialty Start Date End Date Jose Baker MD [address] [place] [address] PCP - General Internal Medicine 03/22/19August [address] [place] [address] Gastroenterology 06/14/24 Jourdan ADAMSONA 09/10/23 documented as of this encounter
--- OUTSIDE RECORDS SUMMARY | 2025-04-17 17:50 | XMS_ITS | Encounter Summary ---
Author Organization [employer] Address [address] [facility] 7t [place] [address] Care Team Providers Care Film Projector Operator Name Role Phone Jose Baker MD Primary Care Provide r August Unavailable Reason for Visit * Reason Onset Date Comments Med Refill 04/15/2025 Encounter Details Date Type Department Care Team (Late st Contact Info) Description 04/15/2025 Refill [facility] [address] [place] [address] Jose Baker MD [address] [place] [address] Seasonal allergies Social History Tobacco Use Types Packs/Day Years [...] encounter Miscellaneous Notes * Telephone Encounter - Kristen Shine LPN - 04/15/2025 10:13 AM EST Pcp on vac.Last seen 03.11.25 documented in this encounter Plan of Treatment Upcoming Encounters Date Type Department Care Team (Late st Contact Info) Description 05/27/2025 2:30 PM EST Office Visit [facility] ADULT DENTAL 230 [place] [address] Dl Vásquez DDS [address] [place] [address] 06/04/2025 1:30 PM EST Office Visit [facility] MEDICINE [address] [place] [address] Jose Baker MD [address] [place] [address] documented as of this encounter Goals Goal Patient Goal Type Associated Problems [...] Plan Patient has chronic kidney disease No Lili Lopez MA Weekly blood pressure task Care Plan Weekly blood pressure task No Lili Lopez [place] Patient has chronic kidney disease Care Plan Patient has chronic kidney disease No Lili Lopez MA Weekly blood pressure task Care Plan Weekly blood pressure task No Dl Vásquez DDS Weekly blood pressure [...] Patient has chronic kidney disease No Flora Swanson, CAROLEE Weekly blood pressure task Care Plan Weekly blood pressure task No Kristen Shine LPN Weekly blood pressure task Care Plan Weekly blood pressure task No Kristen Shine LPN Patient has chronic kidney disease Care Plan Patient has chronic kidney disease No Kristen Shnie LPN Patient has chronic kidney disease Care Plan Patient has chronic kidney disease No Kristen Shine LPN documented as of this encounter Visit Diagnoses Diagnosis Seasonal allergies Allergic rhinitis, cause unspecified documented in this encounter Additional Health Concerns Active Problems Noted Date [...] 04/15/2025 Patient has chronic kidney disease 04/15/2025 Assessment Noted Time PHQ-9 Depression Total Score: 0 01/23/20 25 10:28 AM EDT documented as of this encounter Care Teams Film Projector Operator Relationship Specialty Start Date End Date Jose Baker MD [address] [place] [address] PCP - General Internal Medicine 03/22/[address] [place] [address] [address] [place] [address] Gastroenterology 06/14/24 [place] [facility] 09/10/23 documented as of this encounter
== END 2025-04-17 14:56 | disposition home or self-care (01) ==
LOC: HO.US 14:55
PROVIDERS: PCP Internal Medicine; Visit Provider Internal Medicine
DX: E04.1 Nontoxic single thyroid nodule (principal)
CPT/HCPCS: 76536

== ENCOUNTER → 2025-04-17 14:57 | Outpatient (BNV) | payer MEDICARE, MEDICAID, SELFPAY | PROVIDERS: PCP Internal Medicine; Visit Provider Radiology Diagnostic Radiology | DX: E04.1 Nontoxic single thyroid nodule (principal) | CPT/HCPCS: 76536 ==